=== PATIENT | female | born 1985 | race Caucasian/White ===

== ENCOUNTER → 2018-04-10 07:59 | Outpatient (CLI) | payer MEDICAID, SELFPAY ==
--- NOTE | 2018-04-10 08:30 | NS.NUTBLAN_ITS ---
Assessment: Tiffanie presents for nutritional counseling for weight management in preparation for bariatric surgery at [facility]. She reports that she is frustrated by her difficulty with weight loss as she eats moderately and she is moderately physically active with her work as well as going for 2 mile walks, 3 days per week. Her dietary recall shows that she has an Upper Sor[place] muffin with peanut butter and an apple for breakfast, she has lunch at work which may be a sandwich or piece of pizza, and for dinner she has chicken and vegetables. She reports that she rarely has a starch or other carbohydrate food at dinner. She does not eat after dinner and she does not eat in between meals. She is 66 and [address] scale. Nutrition Diagnosis: Class 3 obesity as evidenced by BMI of 48.4 kg/m2. Intervention: Encouraged Tiffanie to keep up with what she has been doing with her eating as she has maintained her weight for several years now. Encouraged her to be as physically active as possible. Monitoring and Evaluation: 1. Will monitor PO intake and weight monthly. 2. Will evaluate nutrition care plan monthly and adjust as needed. Thank you for the referral.
== END ==
PROVIDERS: PCP Internal Medicine; Visit Provider Dietitian, Registered
DX: E66.8 Other obesity (principal); Z68.42 Body mass index [BMI] 45.0-49.9, adult; Z71.3 Dietary counseling and surveillance
CPT/HCPCS: 97802

== ENCOUNTER 2018-05-08 10:20 | Outpatient (CLI) | payer MEDICAID, SELFPAY ==
--- NOTE | 2018-05-08 08:00 | NS.NUTBLAN_ITS ---
Tiffanie returns for nutritional counseling for weight management nutrition therapy in preparation for bariatric surgery at [facility]. She continues to eat just as she has been and she continues to be physically active with walking 2 miles, 3 days per week. She eats quite moderately and her weight stays fairly stable. She has an Romansh muffin with peanut butter and an apple for breakfast. She has lunch at work which may be a sandwich or a piece of pizza. Dinner is chicken and vegetables without any starch. She does not eat in between meals. Tiffanie demonstrates a high motivation to complete the steps needed for the bariatric program. She also shows a high motivation to continue a lifestyle of weight management. Tiffanie is 66 and 300.4 lbs. Her BMI is 48.4 kg/m2. Will continue to monitor PO intake and weight monthly. Will evaluate nutrition care plan monthly and adjust as needed.
== END 2018-05-08 10:40 ==
PROVIDERS: PCP Internal Medicine; Visit Provider Dietitian, Registered
DX: E66.8 Other obesity (principal); Z68.42 Body mass index [BMI] 45.0-49.9, adult; Z71.3 Dietary counseling and surveillance
CPT/HCPCS: 97802

== ENCOUNTER 2018-06-05 16:07 | Outpatient (CLI) | payer MEDICAID, SELFPAY ==
--- NOTE | 2018-06-05 08:00 | NS.NUTBLAN_ITS ---
Tiffanie returns for nutritional counseling for weight management nutrition therapy in preparation for bariatric surgery at [facility]. She continues to eat quite moderately but had reduced her carbohydrate intake even further than she had been typically eating. She also notes that she has worked hard at managing her stress and noting that stress is a life long issue that requires management versus letting it get in the way of her health. She is walking almost daily for 30 minutes. She drinks only water or diet drinks. Encouraged Tiffanie to keep up with what she has been doing. She is 66 and 289.5 lbs. Her BMI is 46.6 kg/m2 Tiffanie will return next month for continued weight management nutrition therapy. Will continue to monitor her PO intake and her weight monthly. Will evaluate her nutrition care plan and adjust as needed.
== END 2018-06-05 16:27 ==
PROVIDERS: PCP Internal Medicine; Visit Provider Dietitian, Registered
DX: E66.8 Other obesity (principal); Z68.42 Body mass index [BMI] 45.0-49.9, adult; Z71.3 Dietary counseling and surveillance
CPT/HCPCS: 97803

== ENCOUNTER 2018-07-07 14:00 | Outpatient (CLI) | payer MEDICAID, SELFPAY ==
--- NOTE | 2018-07-07 14:00 | NS.NUTBLAN_ITS ---
July 07, 2018 1400 h Tiffanie returns for follow up weight management nutrition therapy in preparation for bariatric surgery at [facility]. She continues to demonstrate a high motivation for lifestyle changes for weight reduction. She has most everything done that she has to do in order to have the surgery done. She continues to eat status quo and she continues to be as physically active as possible. Tiffanie notes that she has completely 100% cut out soda. Her work is such that this time of year she has been working 60 plus hours per week, however she reports that she has been keeping up with eating her three moderate meals and walking 3-4 days per week for 30 minutes daily. She is 66 and her weight today is 295 lbs. Her BMI is 47.7 kg/m2. Tiffanie will follow up per [facility].
== END 2018-07-07 14:20 ==
PROVIDERS: PCP Family Medicine; Visit Provider Dietitian, Registered
DX: E66.8 Other obesity (principal); Z68.41 Body mass index [BMI] 40.0-44.9, adult; Z71.3 Dietary counseling and surveillance
CPT/HCPCS: 97803

== ENCOUNTER 2018-11-09 08:34 | Emergency (ER) | payer MEDICAID, SELFPAY ==
[2018-11-09 08:37] VITALS: BP 131/103; PULSE 84; RESP 12; TEMP 36.5; O2SAT 98
--- NOTE | 2018-11-09 08:46 | ED.GENADUL_ITS ---
Discharge Plan Disposition Patient Disposition: HOME Condition: Stable Discharge Details Chief Complaint: Orthopedic Clinical Impression: Contusion of right hand, Contusion of right wrist Primary Care Provider: Kezia Aguirre ED Provider: Jamee Sapp Home Meds and New Rx's Prescriptions: Continued acetaminophen 500 MG tablet 1,000 mg PO PRN PRNRF: 0 Discharge Instructions Instructions: Contusion in Adults (ED) Additional Instructions: Rest, ice, elevate right hand is much as possible. Alternate Tylenol and Motrin as needed and directed for pain. Follow-up with your primary care doctor in 1 week for reevaluation as needed and for referral to orthopedics if symptoms do not improve or worsen. Return to the emergency department with any worsening or new concerning symptoms. Discharge Data Discharge Date/Time-TO BE ENTERED AT DEPARTURE: 11/09/18 10:30 Discharge Physician: Jamee Sapp Medical Decision Making 33-year-old female who presents with right hand and wrist injury after fall out of bed directly onto hand last night. No meds taken today. She has tenderness to palpation along right fifth metacarpal and right third/fourth/fifth MCP joints. No deformity. Neurovascular intact. No right snuffbox tenderness. Will give a dose of ibuprofen and sent for right wrist and hand x-rays. 1000 --x-rays negative for fracture. Appears consistent with contusion. Will place a right wrist splint. Patient instructed to alternate Tylenol Motrin, rest, ice, elevate. Instructed to follow-up with primary care doctor for reevaluation and for referral to orthopedics if symptoms not improve or worsen. She is instructed to return to the ER with any concerns. Medical Records Medical records reviewed: Yes I reviewed the patient's medical records. Imaging Data Radiologic Study: Radiologist's impression: XR Right Hand Complete, 3 or more Views EXAM DATE/TIME: 11/09/2018 8:46 AM FINDINGS: Bones/joints: Normal.There is no evidence of acute fracture. There is no evidence of malalignment or dislocation. Soft tissues: Normal. IMPRESSION: No acute findings. XR Right Wrist Complete, 3 or more Views EXAM DATE/TIME: 11/09/2018 8:57 AM FINDINGS: Bones/joints: There is no evidence of acute fracture. There is no evidence of malalignment or dislocation. Soft tissues: Normal. IMPRESSION: There is no evidence of acute fracture. HPI General Mode of arrival: ambulatory . Date/Time Provider Initiated Documentation: 11/09/18 08:45 . Limitations to Documentation: no limitations . Information obtained by: patient . HPI Narrative: Patient is a 33-year-old female presents with right hand and wrist pain after fall out of bed yesterday. Patient states she slipped and fell out of bed landing on her right hand which hyperextended at the wrist. She is complaining of pain along her right medial hand/fifth metacarpal and into her third fourth and fifth MCP joints. Pain with range of motion of her wrist and hand. She last took ibuprofen last night. She has applied ice. Related Data Home Medications Medication Instructions Recorded Confirmed acetaminophen 1,000 mg PO PRN PRN 05/30/17 11/09/18 Allergies Allergy/AdvReac Type Severity Reaction Status Date / Time dextromethorphan HBr Allergy Anaphylaxsi Unverified 11/09/18 08:40 [From NyQuil] s doxylamine succinate Allergy Anaphylaxsi Unverified 11/09/18 08:40 [From NyQuil] s pseudoephedrine HCl Allergy Anaphylaxsi Unverified 11/09/18 08:40 [From NyQuil] s spider venom AdvReac Intermediate hives/swell Unverified 11/09/18 08:40 ing General Stated Complaint: Orthopedic LOU: 4 Review of Systems Review of Systems All systems reviewed & are unremarkable except as noted in HPI and below PFSH Medical History Obesity PCOS (polycystic ovarian syndrome) Uterine fibroid Surgical History section Cholecystectomy Colonoscopy - MAC (01/21/17) Ligation of fallopian tube Family History Mother Diabetes Father Personal history of malignant neoplasm Grandfather Personal history of malignant neoplasm Social History Smoking/Tobacco Use Status: Former Tobacco Use Drug use: Never Do you feel safe at home: Yes Do you feel safe in your relationship?: Yes Exam Const General: cooperative, healthy appearing and no acute distress HENMT Head: normal to inspection Mouth: oral mucosae normal Eyes General: appearance normal, both eyes and all related structures Neck Neck: normal visual inspection Resp Effort & Inspection: normal respiratory effort and able to speak in complete sentences Cardio Rate: regular rate Skin General skin exam: no rashes or lesions noted Neuro General: alert, awake and oriented x3 Motor: muscle tone normal throughout Extrem Other: Tenderness to palpation along right fifth metacarpal, and right third, fourth and fifth MCP joints. Pain with range of motion of R hand and wrist. No tenderness to palpation of right snuffbox. No deformity, significant edema, erythema, ecchymosis, laceration or abrasion. Right DP/PT pulses intact. Cap refill less than 2 seconds. Fingers normal to inspection without deformity. Psych Appearance: grossly normal Affect: normal affect Course Vital Signs Temperature 97.7 F 11/09/18 08:37 Pulse 84 11/09/18 08:37 Respiratory Rate 12 11/09/18 08:37 Blood Pressure 131/103 H 11/09/18 08:37 Pulse Oximetry 98 11/09/18 08:37 Temperature 97.7 F 11/09/18 08:37 Temperature Source Temporal Artery Scan 11/09/18 08:37 Pulse 84 11/09/18 08:37 Respiratory Rate 12 11/09/18 08:37 Respiratory Effort Non-Labored 11/09/18 08:38 Blood Pressure 131/103 H 11/09/18 08:37 Pulse Oximetry 98 11/09/18 08:37 Oxygen Delivery Method Room Air 11/09/18 08:37 Oxygen Flow Rate 0 11/09/18 08:37 Pain Level 10 11/09/18 08:39
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
--- NOTE | 2018-11-09 09:39 | DI.VRAD_ITS ---
EXAM: XR Right Wrist Complete, 3 or more Views EXAM DATE/TIME: 11/09/2018 8:57 AM CLINICAL HISTORY: 33 years old, female; Pain; Hand; Right TECHNIQUE: Imaging protocol: XR Right wrist 3 or more views. COMPARISON: CR RIGHT HAND COMPLETE 01/29/2018 11:08 PM FINDINGS: Bones/joints: There is no evidence of acute fracture. There is no evidence of malalignment or dislocation. Soft tissues: Normal. IMPRESSION: There is no evidence of acute fracture. Dictated and Authenticated by: Francesca Bolden MD. Ordering:ABY Mancuso MD
[2018-11-09] MEDS: Ibuprofen 600 MG TAB PO (09:41)
== END 2018-11-09 10:30 | disposition home or self-care (01) ==
PROVIDERS: Emergency Provider Physician Assistant; PCP Family Medicine
DX: S60.211A Contusion of right wrist, initial encounter (principal); S60.221A Contusion of right hand, initial encounter; W06.XXXA Fall from bed, initial encounter
CPT/HCPCS: 29125; 99284; 73110; 73130; 99282; L3908

== ENCOUNTER 2018-11-21 23:37 | Emergency (ER) | payer MEDICAID, SELFPAY ==
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
[2018-11-21 23:39] VITALS: BP 123/64; PULSE 108; RESP 22; TEMP 37.3; O2SAT 97
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
[2018-11-22] MEDS: Acetaminophen 500 MG TAB 1000 MG PO (01:05)
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
[2018-11-22 01:35] LABS: Bilirubin Negative (Negative); Blood Negative (Negative); Clarity Clear; Glucose Negative (Negative); Ketones 15 mg/dL (Negative); Leukocyte Esterase Trace (Negative); Nitrite Negative (Negative); Urobilinogen 0.2 EU/dL (Up TO 0.2)
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
[2018-11-22 01:41] LABS: Bacteria Rare HPF (Negative); C & S Indicated? No/Sq. Contamination; Casts 0-2 Hyaline LPF (Negative); Crystals Negative HPF (Negative); Epithelial Cells Moderate HPF (Negative); Mucus Negative (Negative); RBC 0-2 (0-2)
[2018-11-22 01:55] VITALS: BP 120/78; PULSE 86; RESP 20; O2SAT 97
== END 2018-11-22 02:02 | disposition home or self-care (01) ==
PROVIDERS: Emergency Provider Emergency Medicine; PCP Family Medicine
DX: S00.03XA Contusion of scalp, initial encounter (principal); S00.83XA Contusion of other part of head, initial encounter; S10.93XA Contusion of unspecified part of neck, initial encounter; M54.9 Dorsalgia, unspecified; Y04.8XXA Assault by other bodily force, initial encounter
CPT/HCPCS: 99284; 70450; 70486; 71046; 72080; 73000; 81003; 81015

== ENCOUNTER 2019-01-01 10:29 | Outpatient (REF) | payer MEDICAID, SELFPAY ==
[2019-01-01 13:12] LABS: HCT 42.3 % (36.0-46.0); HGB 13.7 g/dL (12.0-15.5); Mean Corp. HGB Concentration 32.4 g/dL (32.0-36.0); Mean Corpuscular Hemoglobin 27.7 pg (27.0-33.0); Mean Corpuscular Volume 85.6 fL (80-95); Mean Platelet Volume 11.6 fL (8.0-11.0); Platelet Count 244 x1000/uL (130-400); RBC 4.94 m/cumm (4.00-5.20); RBC Distribution Width 14.2 % (11.7-14.6); White Blood Cell Count 7.59 k/cumm (4.4-10.8)
[2019-01-01 13:38] LABS: ALT 22 U/L (12-78); AST 12 U/L (15-37); Albumin 3.8 g/dL (3.4-5.0); Alkaline Phosphatase 73 U/L (46-116); Anion Gap 9.2 mmol/L (3-11); BUN 10 mg/dL (7-18); Bilirubin, Total 0.2 mg/dL (0.2-1.0); C-Reactive Protein 0.27 mg/dL (0.0-0.3); CO2 25.8 mmol/L (21.0-32.0); Calcium 9.4 mg/dL (8.5-10.1); Chloride 105 mmol/L (98-107); Glucose 63 mg/dL (70-100); Potassium 4.2 mmol/L (3.5-5.1); Sodium 140 mmol/L (136-145); Total Protein 6.9 g/dL (6.4-8.2)
== END 2019-01-01 10:49 ==
LOC: NCHCN 10:29
PROVIDERS: PCP Family Medicine; Visit Provider Family Medicine
DX: R55 Syncope and collapse (principal)
CPT/HCPCS: 80053; 85027; 86140

== ENCOUNTER 2019-03-12 05:58 | Emergency (ER) | payer MEDICAID, SELFPAY ==
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
[2019-03-12 06:02] VITALS: BP 136/83; PULSE 81; RESP 18; TEMP 36.7; O2SAT 97
[2019-03-12 06:14] LABS: Bilirubin Negative (Negative); Blood Negative (Negative); Clarity Clear (Clear); Glucose Negative (Negative); Ketones Negative (Negative); Leukocyte Esterase Trace (Negative); Nitrite Negative (Negative)
[2019-03-12 06:22] LABS: Bacteria Few HPF (Negative); C & S Indicated? No/Sq. Contamination; Casts Negative LPF (Negative); Crystals Negative HPF (Negative); Epithelial Cells Many HPF (Negative); Mucus Negative (Negative); RBC 0-2 (0-2); WBC 0-2 HPF (0-5)
[2019-03-12 06:26] LABS: Abs Immature Grans 0.01 k/cumm (0.0-0.09); Absolute Basophil Count 0.06 k/cumm (0.0-0.2); Absolute Eosinophil Count 0.13 k/cumm (0.0-0.7); Absolute Lymphocyte Count 2.47 k/cumm (1.2-3.4); Absolute Monocyte Count 0.59 k/cumm (0.11-0.7); Absolute Neutrophil Count 2.14 k/cumm (1.2-6.7); Basophils % 1.1; Eosinophils % 2.4; HCT 39.4 % (36.0-46.0); HGB 13.3 g/dL (12.0-15.5); Immature Grans % 0.2; Lymphocytes % 45.7; Mean Corp. HGB Concentration 33.8 g/dL (32.0-36.0); Mean Corpuscular Hemoglobin 28.4 pg (27.0-33.0); Mean Corpuscular Volume 84.2 fL (80-95); Mean Platelet Volume 9.9 fL (8.0-11.0); Monocytes % 10.9; Neutrophils % 39.7; Platelet Count 152 x1000/uL (130-400); RBC 4.68 m/cumm (4.00-5.20); RBC Distribution Width 14.1 % (11.7-14.6)
[2019-03-12] MEDS: Ondansetron 4 MG/2 ML VIAL IVP (06:26)
[2019-03-12] MEDS: MORPHine 10 MG/ML VIAL 4 MG IVP (06:26)
[2019-03-12] MEDS: Normal Saline 1,000 ML 1000 ML IV (06:26)
[2019-03-12 06:40] LABS: ALT 74 U/L (12-78); AST 53 U/L (15-37); Albumin 3.5 g/dL (3.4-5.0); Alkaline Phosphatase 109 U/L (46-116); Anion Gap 8.7 mmol/L (3-11); BUN 7 mg/dL (7-18); Bilirubin, Total 0.4 mg/dL (0.2-1.0); CO2 25.3 mmol/L (21.0-32.0); CREATININE 0.47 mg/dL (0.55-1.02); Calcium 9.1 mg/dL (8.5-10.1); Chloride 106 mmol/L (98-107); Glucose 98 mg/dL (70-100); Lipase 100 U/L (73-393); Potassium 4.1 mmol/L (3.5-5.1); Sodium 140 mmol/L (136-145)
[2019-03-12] MEDS: Omnipaque 350 MG/ML 100 ML BTL IJ (06:59)
[2019-03-12] MEDS: Normal Saline Flush 10 ML SYR IVP (07:00)
--- NOTE | 2019-03-12 07:05 | DI.CT_ITS ---
SYMPTOM/DIAGNOSIS: RLQ TENDERNESS, R/O APPE CT ABDOMEN AND PELVIS: The study was carried out according to the usual protocol. intravenous administration of 100 cc Omnipaque 350. A small region of fatty infiltration is noted involving the liver. The patient is status post cholecystectomy. The pancreas is normal. The spleen is enlarged measuring up to 15.4 cm in length. The adrenals and kidneys are normal. The patient is status post gastric bypass. There is no evidence of obstruction or localized bowel abnormality. The appendix was not visualized but there is nothing to suggest an acute appendix. There has been a right oophoropexy located within the right pericolic gutter. There is no evidence of free air or free fluid. There is no aortic aneurysm. There is no lymphadenopathy. The bladder is unremarkable. The patient is status post hysterectomy. The bony structures are unremarkable. Soft tissues are unremarkable. SUMMARY: No evidence of an acute abdomen. Splenomegaly is noted measuring up to as much as 15.4 cm in size.
--- NOTE | 2019-03-12 07:26 | DI.VRAD_ITS ---
EXAM: CT Abdomen and Pelvis With Contrast EXAM DATE/TIME: 03/12/2019 6:06 AM CLINICAL HISTORY: 33 years old, female; Abdominal pain; Localized; Right lower quadrant (rlq); Prior surgery; Surgery date: 1-6 months; Surgery type: Gastric bypass 09/2018; x2, gallbladder; Additional info: Nausea, sharp rlq pain x12+/- hours TECHNIQUE: Imaging protocol: Axial computed tomography images of the abdomen and pelvis with intravenous contrast. Coronal and sagittal reformatted images were created and reviewed. Radiation optimization: All CT scans at this facility use at least one of these dose optimization techniques: automated exposure control; mA and/or kV adjustment per patient size (includes targeted exams where dose is matched to clinical indication); or iterative reconstruction. Contrast material: [id number];Contrast volume: 100 ml;Contrast route: IV 18G RT AC; COMPARISON: US PELVIS TRANSVAG 12/27/2016 12:37 PM FINDINGS: Liver: Small focus of fat infiltration within the liver. Prominent David's lobe. Gallbladder and bile ducts: Cholecystectomy. Pancreas: Normal. No ductal dilation. Spleen: Spleen is enlarged, measuring 15.4 cm. Adrenals: Normal. No mass. Kidneys and ureters: Normal. No hydronephrosis. Stomach and bowel: Gastric bypass. No bowel obstruction. No bowel wall thickening. Appendix: Appendix is not visualized. However, there is no evidence of acute appendicitis. Intraperitoneal space: Right oophoropexy, located within the right paracolic gutter (4:61). No fluid collection. No free air. Vasculature: No abdominal aortic aneurysm. Lymph nodes: Normal. No enlarged lymph nodes. Bladder: Unremarkable as visualized. Reproductive: Hysterectomy. Bones/joints: No acute fracture. No dislocation. Soft tissues: Unremarkable. IMPRESSION: 1. No evidence of acute abdominopelvic pathology. 2. Spleen is enlarged, measuring 15.4 cm. Dictated and Authenticated by: Kendrick Gonzalez MD. Ordering:NOE Hopper MD
[2019-03-12] MEDS: Ketorolac 30 MG/ML VIAL IVP (07:46)
[2019-03-12] MEDS: Dicyclomine 20 MG TAB PO (07:47)
[2019-03-12 07:49] VITALS: BP 122/75; PULSE 56; RESP 15; TEMP 36.8; O2SAT 98
[2019-03-12 08:02] VITALS: BP 122/75; PULSE 56; RESP 15; TEMP 36.8; O2SAT 98
== END 2019-03-12 08:04 | disposition home or self-care (01) ==
PROVIDERS: Emergency Provider Student in an Organized Health Care Education/Training Program; PCP Family Medicine
DX: R10.31 Right lower quadrant pain (principal)
CPT/HCPCS: 36415; 80053; 83690; 96361; 96374; 96375; 99285; 74177; 81003; 81015; 85025; 99284; J1885; J2270; J2405; J3490

== ENCOUNTER 2019-04-15 18:55 | Emergency (ER) | payer MEDICAID, SELFPAY ==
[2019-04-15 18:58] VITALS: BP 117/79; PULSE 74; RESP 18; TEMP 36.6; O2SAT 97
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
[2019-04-15] MEDS: Penicillin V POTASSIUM 500 MG TAB PO (19:35)
[2019-04-15] MEDS: Penicillin V POTASSIUM 500 MG TAB 1500 MG PO (19:57)
== END 2019-04-15 20:14 | disposition home or self-care (01) ==
PROVIDERS: Emergency Provider Nurse Practitioner Family; PCP Family Medicine
DX: R68.84 Jaw pain (principal); R22.0 Localized swelling, mass and lump, head; K04.7 Periapical abscess without sinus
CPT/HCPCS: 64402; 99283

== ENCOUNTER 2019-09-08 04:54 | Emergency (ER) | payer MEDICAID, SELFPAY ==
[2019-09-08 04:59] VITALS: BP 129/79; PULSE 96; RESP 18; TEMP 37; O2SAT 97
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
== END 2019-09-08 05:30 | disposition home or self-care (01) ==
PROVIDERS: Emergency Provider Emergency Medicine; PCP Family Medicine
DX: R05 Cough (principal); R51 Headache; M79.10 Myalgia, unspecified site; J11.1 Influenza due to unidentified influenza virus with other respiratory manifestations
CPT/HCPCS: 99282

== ENCOUNTER 2019-09-24 13:14 | Emergency (ER) | payer MEDICAID, SELFPAY ==
[2019-09-24 13:24] VITALS: BP 137/85; PULSE 66; RESP 16; TEMP 36.2; O2SAT 99
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
== END 2019-09-24 13:45 | disposition home or self-care (01) ==
PROVIDERS: Emergency Provider Physician Assistant; PCP Family Medicine
DX: J20.8 Acute bronchitis due to other specified organisms (principal); Z87.891 Personal history of nicotine dependence
CPT/HCPCS: 99282

== ENCOUNTER 2019-12-22 05:39 | Emergency (ER) | payer MEDICAID, SELFPAY ==
[2019-12-22] VITALS (7 sets, daily range): BP systolic 131; BP diastolic 73; PULSE 61–73; RESP 13–21; TEMP 36.6; O2SAT 97–99
[2019-12-22] MEDS: Normal Saline 1,000 ML 1000 ML IV (05:55)
--- NOTE | 2019-12-22 05:56 | ED.GENADUL_ITS ---
Discharge Plan Disposition Patient Disposition: HOME Condition: Good Discharge Details Chief Complaint: Dizzy/Sync Clinical Impression: Syncope, Concussion, Dehydration Primary Care Provider: Kezia Aguirre ED Provider: Ward Jade Home Meds and New Rx's Prescriptions: No Action acetaminophen 500 MG tablet 1,000 mg PO PRN PRNRF: 0 ibuprofen 600 mg Tablet 600 mg PO PRN PRNRF: 0 venlafaxine 37.5 mg Tablet 37.5 mg PO DAILY RF: 0 diclofenac potassium 50 mg Tablet 50 mg PO TID RF: 0 buspirone 7.5 mg Tablet 7.5 mg PO DAILY RF: 0 fluticasone propionate [Flonase Allergy Relief] 50 mcg/actuation Sims,Suspension 1 spray INTRANASAL BID RF: 0 Discharge Instructions Instructions: Syncope (ED), Concussion (ED) Additional Instructions: At this time I feel that your syncope/loss of consciousness was from mild dehydration including it being early in the morning and urinating at that time. Please make sure to drink plenty of fluids, recommending 10 to 12 cups of water today. Get plenty of sleep and rest today. You do have a mild concussion from hitting her head. If you notice any worsening of your symptoms, or any new symptoms such as vomiting, diarrhea, fever, chills, shortness of breath, chest pain, numbness, weakness, or fainting , please return immediately to the emergency department for reevaluation. Please follow up with your primary care provider as soon as possible for reassessment and reevaluation. As always, it was a pleasure participating in your medical care today. Stand Alone Forms: Work Release Referrals: Kezia Aguirre [Primary Care Provider] - Medical Decision Making This is a pleasant 34-year-old female with a past medical history of a , tubal ligation, partial colectomy, partial hysterectomy, cholecystectomy, and polycystic ovarian syndrome who presents for evaluation of syncope. Patient states that at 1 AM which was roughly 5 hours ago she went to the bathroom and while urinating had 2 episodes of syncope. She went back to bed, however this morning when she got up for work she felt lightheaded, and when she stood up to get out of bed she passed out a third time. She did hit her right brow on her initial episode of syncope in the bathroom. Aside for the pain in her right brow as well as over the right temporal region she denies any headache or neck pain. No risk factors for PE, symptoms inconsistent with PE. No family history of atypical cardiac disease. Symptoms unlikely secondary to mild dehydration, micturition syncope. Patient does have notable bruise over the right brow and tenderness over the right brow and right temporal region. We will get CT scan to rule out fracture, bleed unlikely. We will rehydrate, evaluate for atypical cardiac or electrolyte abnormality, monitor closely and reassess. The patient has recently been started on anxiety medication mental health/depression medication, however I do not think that this is related to her current symptomatology. 6:52 AM Laboratory work-up is returned notably unremarkable, EKG and troponin are normal. CT scan negative for acute process. After patient received her liter of normal saline she is feeling much better. Repeat neurologic exam demonstrates no neurologic deficits or abnormalities. Patient feels well. Suspect that she had contusion, mild concussion after the fall. Symptoms of syncope are consistent with mild dehydration and micturition syncope. Symptoms are inconsistent with PE, stroke, or other acute abnormality. At this time feel the patient be discharged. Discussed red flags which to return. Recommend drinking plenty of fluids, rest, relaxation. I have extensively reviewed the treatment plan and discharge instructions with the patient. I have addressed all patient concerns at this time. The patient was made aware of what symptoms to monitor for that would warrant a return to the emergency department. Discussed the plan with the patient, they demonstrate verbal understanding and agreement with our assessment and plan at this time. EKG 5: 49 Rate 72, intervals normal, sinus rhythm, no evidence of Brugada syndrome, Cannon r-Ugxuiijuf-Kffga, or other abnormality. FINDINGS: Brain: Mild volume loss No hemorrhage. Unremarkable white matter. No mass effect. Ventricles: Normal. No ventriculomegaly. Bones/joints: Unremarkable. No acute fracture. Sinuses: A polyp/retention cyst is noted in the right sphenoid sinus.. No fluid levels. Mastoid air cells: Visualized mastoid air cells are well aerated. Soft tissues: Minimal right periorbital swelling IMPRESSION: No acute intracranial hemorrhage noted HPI General Date/Time Provider Initiated Documentation: 12/22/19 05:46 . HPI Narrative: This is a pleasant 34-year-old female with a past medical history of a , tubal ligation, partial colectomy, partial hysterectomy, cholecystectomy, and polycystic ovarian syndrome who presents for evaluation of syncope. Patient states that at 1 AM which was roughly 5 hours ago she went to the bathroom and while urinating had 2 episodes of syncope. She went back to bed, however this morning when she got up for work she felt lightheaded, and when she stood up to get out of bed she passed out a third time. She did hit her right brow on her initial episode of syncope in the bathroom. Aside for the pain in her right brow as well as over the right temporal region she denies any headache or neck pain. She denies any fever, chills, cough, chest pain, shortness of breath, numbness, tingling, weakness. She denies any pertinent family history of early cardiac , or cardiac abnormality. Denies PE risk factors such as recent long car rides, immobilization, recent surgery, prior history of DVT or PE, family history of PE or DVT, morbid obesity, exogenous estrogen and smoking, hemoptysis, history of cancer. She denies history of syncope like this in the past. She has no other complaints at this time. She is feels that she drank around a gallon of water yesterday. She denies any IV or illicit drug use. Related Data Home Medications Medication Instructions Recorded Confirmed acetaminophen 1,000 mg PO PRN PRN 05/30/17 12/22/19 ibuprofen 600 mg PO PRN PRN 04/15/19 12/22/19 buspirone 7.5 mg PO DAILY 12/22/19 12/22/19 diclofenac potassium 50 mg PO TID 12/22/19 12/22/19 fluticasone propionate [Flonase 1 spray INTRANASAL BID 12/22/19 12/22/19 Allergy Relief] venlafaxine 37.5 mg PO DAILY 12/22/19 12/22/19 Allergies Allergy/AdvReac Type Severity Reaction Status Date / Time dextromethorphan HBr Allergy Anaphylaxsi Unverified 12/22/19 05:45 [From NyQuil] s doxylamine succinate Allergy Anaphylaxsi Unverified 12/22/19 05:45 [From NyQuil] s pseudoephedrine HCl Allergy Anaphylaxsi Unverified 12/22/19 05:45 [From NyQuil] s spider venom AdvReac Intermediate hives/swell Unverified 12/22/19 05:45 ing General Stated Complaint: Dizzy/Sync LOU: 3 Review of Systems All systems reviewed & are unremarkable except as noted in HPI and below PFSH Social History Smoking/Tobacco Use Status: Former Tobacco Use Alcohol Intake: current Alcohol Intake frequency: a few times a month Alcohol type: hard liquor Drug use: Never Substance use type: does not use Do you feel safe at home: Yes Do you feel safe in your relationship?: Yes Exam Narrative Exam Narrative: 1.Const: Well-nourished, Well-developed, appearing stated age 2.Eyes: PERRL, no conjunctival injection, and symmetrical lids. 3.ENT: Unremarkable external nose and ears. Notable bruising around the patient's right brow, mild tenderness on palpation of the right temporal region. Moist MM. Neck: Symmetric, trachea midline, No thyromegaly. There is no evidence of raccoon eyes, carcamo sign, CSF rhinorrhea, mastoid tenderness, cranial crepitus, hemotympanum, exophthalmos, or hyphema. Patient demonstrates intact dentition with no signs of tooth avulsion or fracture, no signs of jaw deformity, no evidence of a LeFort's fracture, with an intact palate, nose and orbital region. There is no evidence of a nasal septal hematoma. No proptosis. Jaw closes symmetrically. Airway is clear. 4.CVS: +S1/S2, No murmurs or gallops. Peripheral pulses 2+ and equal in all extremities. Brisk capillary refill in all extremities. 5.RESP: Unlabored respiratory effort. Clear to auscultation bilaterally. No wheezes rales or rhonchi 6.GI: Soft, Nontender/Nondistended, No hepatosplenomegaly. No guarding or rebound. 7.MSK: Normocephalic/Atraumatic, Extremities w/o deformity or ttp No cyanosis or clubbing, Normal movement of all extremities 8.Skin: Warm, Dry. No rashes or lesions. Mild bruising around the right orbital region. 9.Neuro: loading inspector II-XII grossly intact. Sensation grossly intact, no focal neurologic deficits. All 6 cardinal planes of vision are fully intact. No evidence of rotatory or vertical nystagmus. The patient demonstrated a normal zatmxw-ggva-ljlphi, good dexterity. There was no evidence of dysdiadochokinesia. Patient was able to ambulate without difficulty. There was no wide-based gait. Romberg testing was normal. Gorz-gd-plpx testing was normal. Sensation was i ntact bilaterally as well as muscle strength bilaterally for all extremities. Patient was able to verbalize butter cup with no slurring, or miss pronunciation. 10.Psych: (AAO) x3. Appropriate mood and affect Course Vital Signs Vital signs: Vital Signs Temperature 36.6 C 12/22/19 05:42 Pulse 73 12/22/19 05:42 Respiratory Rate 16 12/22/19 05:42 Blood Pressure 131/73 12/22/19 05:42 Pulse Oximetry 97 12/22/19 05:42 Temperature 36.6 C 12/22/19 05:42 Temperature Source Skin 12/22/19 05:42 Pulse 73 12/22/19 05:42 Respiratory Rate 16 12/22/19 05:42 Blood Pressure 131/73 12/22/19 05:42 Blood Pressure Position Sitting 12/22/19 05:42 Pulse Oximetry 97 12/22/19 05:42 Oxygen Delivery Method Room Air 12/22/19 05:42 Oxygen Flow Rate 0 12/22/19 05:42 Pain Level 5 12/22/19 05:42
[2019-12-22 06:02] LABS: Abs Immature Grans 0.01 k/cumm (0.0-0.09); Absolute Basophil Count 0.01 k/cumm (0.0-0.2); Absolute Eosinophil Count 0.09 k/cumm (0.0-0.7); Absolute Lymphocyte Count 2.48 k/cumm (1.2-3.4); Absolute Neutrophil Count 4.54 k/cumm (1.2-6.7); Basophils % 0.1; Eosinophils % 1.1; HCT 38.3 % (36.0-46.0); HGB 13.1 g/dL (12.0-15.5); Immature Grans % 0.1 %; Lymphocytes % 31.7; Mean Corp. HGB Concentration 34.2 g/dL (32.0-36.0); Mean Corpuscular Hemoglobin 29.8 pg (27.0-33.0); Mean Corpuscular Volume 87.2 fL (80-95); Mean Platelet Volume 10.1 fL (8.0-11.0); Monocytes % 8.9; Neutrophils % 58.1; Platelet Count 220 x1000/uL (130-400); RBC 4.39 m/cumm (4.00-5.20); RBC Distribution Width 13.2 % (11.7-14.6); White Blood Cell Count 7.83 k/cumm (4.4-10.8)
[2019-12-22] MEDS: Acetaminophen 500 MG TAB 1000 MG PO (06:04)
[2019-12-22 06:17] LABS: ALT 20 U/L (14-59); AST 11 U/L (15-37); Albumin 3.7 g/dL (3.4-5.0); Alkaline Phosphatase 74 U/L (46-116); Anion Gap 5.6 mmol/L (3-11); BUN 10 mg/dL (7-18); Bilirubin, Total 0.4 mg/dL (0.2-1.0); CO2 28.4 mmol/L (21.0-32.0); CREATININE 0.67 mg/dL (0.55-1.02); Chloride 104 mmol/L (98-107); Glucose 102 mg/dL (74-106); Potassium 4.2 mmol/L (3.5-5.1); Sodium 138 mmol/L (136-145); Total Protein 7.2 g/dL (6.4-8.2)
[2019-12-22 06:22] LABS: Troponin I < 0.05 ng/Ml (<0.06)
--- NOTE | 2019-12-22 06:35 | DI.CT_ITS ---
EXAM: CT HEAD WO CLINICAL HISTORY: fell, syncope x3, hit right brow, r/o fx. TECHNIQUE: Imaging Protocol: Axial computed tomography images with coronal and sagittal reformatted images were created and reviewed COMPARISON: CT CT HEAD FACIAL WO from 11/21/2018 FINDINGS: The ventricular system is normal in appearance. No evidence of acute intracranial hemorrhage, mass effect, or midline shift. The orbital structures are unremarkable. The temporal bone structures appear intact. Calvarium: Normal. Visualized Paranasal sinuses/Mastoids: Mild mucoperiosteal thickening thickening versus retention cys t sphenoid IMPRESSION: Normal cranial CT. RADIATION DOSE DELIVERED: Total DLP DATA REPOSITORY: All CT scans at this facility are submitted to the National Radiology Data Registry (NRDR) Dose Index Registry (DIR) with the [employer] ([employer]). RADIATION OPTIMIZATION: All CT scans at this facility use at least one of these dose optimization te chniques: automated exposure control; mA and/or kV adjustment per patient size (includes targeted exa ms where dose is matched to clinical indication); or iterative reconstruction.
--- NOTE | 2019-12-22 06:42 | DI.VRAD_ITS ---
PROCEDURE INFORMATION: Exam: CT Head Without Contrast Exam date and time: 12/22/2019 6:19 AM Age: 34 years old Clinical indication: Injury or trauma; Fall; Initial encounter; Blunt trauma (contusions or hematomas); With loss of consciousness; Not specified; Injury date: 12/22/19; Injury details: Fell, syncope x3, hit right brow, R/O FX TECHNIQUE: Imaging protocol: Computed tomography of the head without contrast. Radiation optimization: All CT scans at this facility use at least one of these dose optimization techniques: automated exposure control; mA and/or kV adjustment per patient size (includes targeted exams where dose is matched to clinical indication); or iterative reconstruction. COMPARISON: CT HEAD WITHOUT CONTRAST 02/01/2018 1:16 PM FINDINGS: Brain: Mild volume loss No hemorrhage. Unremarkable white matter. No mass effect. Ventricles: Normal. No ventriculomegaly. Bones/joints: Unremarkable. No acute fracture. Sinuses: A polyp/retention cyst is noted in the right sphenoid sinus.. No fluid levels. Mastoid air cells: Visualized mastoid air cells are well aerated. Soft tissues: Minimal right periorbital swelling IMPRESSION: No acute intracranial hemorrhage noted Dictated and Authenticated by: Mikel James MD. Ordering:NOE Hopper MD
== END 2019-12-22 07:00 | disposition home or self-care (01) ==
PROVIDERS: Emergency Provider Student in an Organized Health Care Education/Training Program; PCP Family Medicine
DX: R55 Syncope and collapse (principal); S06.0X9A Concussion with loss of consciousness of unspecified duration, initial encounter; S00.83XA Contusion of other part of head, initial encounter; W18.12XA Fall from or off toilet with subsequent striking against object, initial encounter; E86.0 Dehydration
CPT/HCPCS: 36415; 80053; 93005; 96360; 99285; 70450; 81003; 84484; 85025; 93010; 99284

== ENCOUNTER 2020-03-01 14:33 | Outpatient (REF) | payer MEDICAID, SELFPAY ==
[2020-03-06 15:00] LABS: SARS-CoV-2 RNA Undetected (Undetected); SARS-CoV-2 Specimen Source Nasopharynx
== END 2020-03-01 14:53 ==
LOC: NCHCN 14:33
PROVIDERS: PCP Family Medicine; Visit Provider Nurse Practitioner Family
DX: R53.83 Other fatigue (principal); Z11.59 Encounter for screening for other viral diseases
CPT/HCPCS: U0003

== ENCOUNTER 2020-04-06 15:47 | Emergency (ER) | payer MEDICAID, SELFPAY ==
[2020-04-06] VITALS (38 sets, daily range): BP systolic 100–120; BP diastolic 47–72; PULSE 59–83; RESP 12–25; TEMP 37–37.9; O2SAT 96–100
--- NOTE | 2020-04-06 15:30 | RT.EKG_ITS ---
APPROVED REPORT Exam: Resting ECG Patient Location: E HR:66 bpm ECG Measurements Heart Rate 66 AXIS WY 177 P 3 QRSd 96 QRS 58 QT 405 T 42 QTc 425 Conclusion Sinus rhythm...normal P axis, V-rate 60- 99
[2020-04-06] MEDS: Normal Saline 1,000 ML 1000 ML IV (16:29)
[2020-04-06 16:30] LABS: Abs Immature Grans 0.02 10^3/uL (0.0-0.06); Absolute Basophil Count 0.03 10^3/uL (0.0-0.2); Absolute Eosinophil Count 0.13 10^3/uL (0.0-0.7); Absolute Lymphocyte Count 2.86 10^3/uL (1.2-3.4); Absolute Monocyte Count 0.45 10^3/uL (0.1-0.8); Absolute Neutrophil Count 3.41 10^3/uL (1.2-6.7); Basophils % 0.4; Eosinophils % 1.9; HCT 37.1 % (36.0-46.0); Immature Grans % 0.3; Lymphocytes % 41.4; MCH 28.8 pg (27.0-33.0); MCHC 32.3 % (32.0-36.0); MPV 10.5 fL (8.0-11.0); Monocytes % 6.5; Neutrophils % 49.5; Nucleated RBC 0 %; Platelet Count 209 10^3/uL (130-400); RBC 4.17 10^6/uL (3.93-5.22); RDW-SD 42.4 fL
[2020-04-06] MEDS: LORazepam 2 MG/ML VIAL 1 MG IVP (16:33)
--- NOTE | 2020-04-06 17:05 | DI.RAD_ITS ---
EXAM: XR CHEST 2V PA LATERAL CLINICAL HISTORY: chest pain TECHNIQUE: 2D digital imaging was performed. COMPARISON: CR XR CHEST 2V PA LATERAL from 11/21/2018 FINDINGS: The heart is not enlarged. The lungs are clear and well expanded. No pleural effusion seen. Mediastin al contours appear intact. IMPRESSION: Normal chest RADIATION DOSE DELIVERED: Total DLP
[2020-04-06 17:10] LABS: ALT 21 U/L (14-59); AST 22 U/L (15-37); Albumin 3.6 g/dL (3.4-5.0); Alkaline Phosphatase 61 U/L (46-116); Anion Gap 11.3 mmol/L (3-11); BUN 11 mg/dL (7-18); Bilirubin, Total 0.2 mg/dL (0.2-1.0); CO2 23.7 mmol/L (21.0-32.0); CREATININE 0.57 mg/dL (0.55-1.02); Calcium 8.7 mg/dL (8.5-10.1); Chloride 105 mmol/L (98-107); Glucose 93 mg/dL (74-106); Magnesium 2.1 mg/dL (1.8-2.4); Sodium 140 mmol/L (136-145); TSH 0.85 uIU/mL (0.36-3.74); Total Protein 6.8 g/dL (6.4-8.2)
[2020-04-06 17:11] LABS: Troponin I < 0.05 ng/mL (<0.06)
--- NOTE | 2020-04-06 17:12 | DI.VRAD_ITS ---
PROCEDURE INFORMATION: Exam: XR Chest, 2 Views Exam date and time: 04/06/2020 5:05 PM Age: 35 years old Clinical indication: Chest pain; Type not specified TECHNIQUE: Imaging protocol: XR of the chest Views: 2 views. COMPARISON: CR XR CHEST 2V PA LATERAL 11/22/2018 12:49 AM FINDINGS: Lungs: The lungs are normally expanded and clear. Pleural space: Normal. Heart/Mediastinum: Normal heart and cardiomediastinal silhouette. Vasculature: Normal pulmonary vessel caliber. Normal aorta. Bones/joints: The bones are intact. IMPRESSION: Normal. Dictated and Authenticated by: Colton Penaloza MD. Ordering:DOMINGA Mojica MD
[2020-04-06 17:44] LABS: Bilirubin Negative (Negative); Blood Negative (Negative); Clarity Sl Cloudy (Clear); Glucose Negative (Negative); Ketones Negative (Negative); Leukocyte Esterase Trace (Negative); Nitrite Negative (Negative); Specific Gravity 1.015 (1.005-1.025); Urobilinogen 0.2 EU/dL (Up TO 0.2); pH 6.5 (5-8)
--- NOTE | 2020-04-06 17:49 | W.ED.GENAD ---
Discharge Plan Disposition Patient Disposition: HOME Condition: Stable Discharge Details Chief Complaint: Dizzy/Sync Clinical Impression: Pancreatitis Primary Care Provider: Kezia Aguirre ED Provider: Yunior Nicole Home Meds and New Rx's Prescriptions: Continued venlafaxine 37.5 mg Tablet 37.5 mg PO DAILY RF: 0 Discharge Instructions Instructions: Pancreatitis (ED) Additional Instructions: Work-up in the ER reveals mild pancreatitis, otherwise unremarkable. As we discussed, we believe that discharge home is perfectly reasonable. We discussed [id number] medication such as Tylenol and/or Motrin as directed for somatic control. Clear liquid diet, advance as tolerated. Please watch for new or worsening symptoms and return to the ER for any concerns. I do recommend reaching out your primary care provider tomorrow for prompt outpatient reevaluation. Discussed few reevaluation and recheck of your lipase. Discharge Data Discharge Date/Time-TO BE ENTERED AT DEPARTURE: 04/06/20 19:20 Medical Decision Making 35-year-old female with history of PCOS, denies smoking, drinking alcohol, drug use, presents to the ER for what she describes as chest pain. Upon further investigation she is actually pointing just below her chest more so to her epigastric region on the left side. Evaluation reveals that she does have discomfort to palpation of the epigastric and left upper quadrant region. The pain is associate with nausea and was so severe made her dizzy. Clinically she appears well, nontoxic and in no acute distress. Heart rate in the 60s, she is afebrile, and O2 sat is 98% on room air. Per the PERC criteria I will not obtain a d-dimer. Although she complains of chest pain I believe this is much more likely GI related. I will obtain a cardiac work-up given her complaint. She is already received aspirin. I will give her a GI cocktail, IV fluids, will also provide 1 mg IV Ativan for her dizziness. I would give Antivert but it appears as though she has anaphylactic reaction to antihistamines. Patient was reevaluated multiple times, each time subsequently she reported less symptoms. Eventually she denied any feeling of dizziness or nausea. She reported that she still had some lower chest pressure but that to resolve completely. Initial work-up reveals a white count of 6.90 hemoglobin 12 hematocrit 37.1 platelet count 209. Electrolytes unremarkable. Creatinine 0.57 with a GFR greater than 60. Glucose 93. Mag 2.1. Initial troponin less than 0.05. Chest x-ray unremarkable. TSH 0.85. Urinalysis trace leukoesterase 5-10 high-powered field white cells with many epis, likely contamination. Lipase of 526. Mild pancreatitis. Certainly would explain her presentation. I discussed findings with patient. She is never been diagnosed with pancreatitis, does not drink alcohol. She was agreeable to awaiting a repeat EKG and troponin at 3 hours. At this time she is currently asymptomatic. We discussed CT imaging, unfortunately currently we are in a code black, CT imaging not available. I did explain to the patient that she could be held in the ER for additional 2 or [address] imaging at that time however she declines. Given her presentation I believe this to be perfectly reasonable. She is comfortable following with her primary care provider or returning here to the ER for new or worsening symptoms. Repeat EKG performed at 1931. Sinus rhythm, ventricular of 64. No STEMI. Reviewed and interpreted with Dr. Levine, please see his official report. Repeat troponin is less than 0.05 Patient remains asymptomatic. We discussed her repeat EKG and troponin. We again discussed CT imaging, she does not want to wait in the ER any longer. Given her lipase is only 526, otherwise labs appear unremarkable, and she is currently asymptomatic I believe discharge is completely reasonable with close outpatient follow-up. Medical Records Medical records reviewed: Yes I reviewed the patient's medical records. Imaging Data Radiologic Study: Attestation: I personally reviewed and interpreted this imaging study as follows: Imaging: X-Ray Radiologist's impression: Chest x-ray negative, read by radiology Lab Data Lab results reviewed: Yes I reviewed the patient's lab results. Lab results narrative: Laboratory Tests Range/Units 04/06/20 04/06/20 04/06/20 15:56 15:56 16:00 WBC (4.4-10.8) 10^3/uL 6.90 RBC (3.93-5.22) 10^6/uL 4.17 Hgb (11.2-15.7) g/dL 12.0 Hct (36.0-46.0) % 37.1 MCV (80-95) fL 89.0 MCH (27.0-33.0) pg 28.8 MCHC (32.0-36.0) % 32.3 RDW (11.7-14.6) % 13.0 Plt Count (130-400) 10^3/uL 209 MPV (8.0-11.0) fL 10.5 Immature Gran % 0.3 Neutrophils % 49.5 Lymphocytes % 41.4 Monocytes % 6.5 Eosinophils % 1.9 Basophils % 0.4 Nucleated RBC % % 0 Absolute Neutrophils (1.2-6.7) 10^3/uL 3.41 Absolute Lymphocytes (1.2-3.4) 10^3/uL 2.86 Absolute Monocytes (0.1-0.8) 10^3/uL 0.45 Absolute Eosinophils (0.0-0.7) 10^3/uL 0.13 Absolute Basophils (0.0-0.2) 10^3/uL 0.03 Sodium (136-145) mmol/L 140 Potassium (3.5-5.1) mmol/L 4.0 Chloride (98-107) mmol/L 105 Carbon Dioxide (21.0-32.0) mmol/L 23.7 Anion Gap (3-11) mmol/L 11.3 H BUN (7-18) mg/dL 11 Creatinine (0.55-1.02) mg/dL 0.57 Estimated GFR/1.73 m2 (mL/min/1.73m2) >= 60.00 Glucose (74-106) mg/dL 93 Calcium (8.5-10.1) mg/dL 8.7 Magnesium (1.8-2.4) mg/dL 2.1 Total Bilirubin (0.2-1.0) mg/dL 0.2 AST (15-37) U/L 22 ALT (14-59) U/L 21 Alkaline Phosphatase (46-116) U/L 61 Troponin I (<0.06) ng/mL < 0.05 Total Protein (6.4-8.2) g/dL 6.8 Albumin (3.4-5.0) g/dL 3.6 Lipase (73-393) U/L 526 H TSH (0.36-3.74) uIU/mL 0.85 Urine Color (Yellow) Urine Clarity (Clear) Urine pH (5-8) Ur Specific Eunice (1.005-1.025) Urine Protein (Negative) mg/dL Urine Ketones (Negative) mg/dL Urine Blood (Negative) Urine Nitrite (Negative) Urine Bilirubin (Negative) Urine Urobilinogen (Up TO 0.2) EU/dL Ur Leukocyte Esterase (Negative) Urine RBC (0-2) HPF Urine WBC (0-5) HPF Ur Epithelial Cells (Negative) HPF Urine Crystals (Negative) HPF Urine Bacteria (Negative) HPF Urine Casts (Negative) LPF Urine Mucus (Negative) Ur Culture Indicated? Urine Glucose (Negative) mg/dL Urine Opiates Screen (Negative) Urine Methadone Screen (Negative) Ur Barbiturates Screen (Negative) Ur Tricyclics Screen (Negative) Ur Amphetamines Screen (Negative) U Benzodiazepines Scrn (Negative) Urine Cocaine Screen (Negative) Ur THC Screen (Negative) Range/Units 04/06/20 04/06/20 04/06/20 17:28 17:28 19:05 WBC (4.4-10.8) 10^3/uL RBC (3.93-5.22) 10^6/uL Hgb (11.2-15.7) g/dL Hct (36.0-46.0) % MCV (80-95) fL MCH (27.0-33.0) pg MCHC (32.0-36.0) % RDW (11.7-14.6) % Plt Count (130-400) 10^3/uL MPV (8.0-11.0) fL Immature Gran % Neutrophils % Lymphocytes % Monocytes % Eosinophils % Basophils % Nucleated RBC % % Absolute Neutrophils (1.2-6.7) 10^3/uL Absolute Lymphocytes (1.2-3.4) 10^3/uL Absolute Monocytes (0.1-0.8) 10^3/uL Absolute Eosinophils (0.0-0.7) 10^3/uL Absolute Basophils (0.0-0.2) 10^3/uL Sodium (136-145) mmol/L Potassium (3.5-5.1) mmol/L Chloride (98-107) mmol/L Carbon Dioxide (21.0-32.0) mmol/L Anion Gap (3-11) mmol/L BUN (7-18) mg/dL Creatinine (0.55-1.02) mg/dL Estimated GFR/1.73 m2 (mL/min/1.73m2) Glucose (74-106) mg/dL Calcium (8.5-10.1) mg/dL Magnesium (1.8-2.4) mg/dL Total Bilirubin (0.2-1.0) mg/dL AST (15-37) U/L ALT (14-59) U/L Alkaline Phosphatase (46-116) U/L Troponin I (<0.06) ng/mL < 0.05 Total Protein (6.4-8.2) g/dL Albumin (3.4-5.0) g/dL Lipase (73-393) U/L TSH (0.36-3.74) uIU/mL Urine Color (Yellow) Yellow Urine Clarity (Clear) Sl cloudy Urine pH (5-8) 6.5 Ur Specific Eunice (1.005-1.025) 1.015 Urine Protein (Negative) mg/dL Negative Urine Ketones (Negative) mg/dL Negative Urine Blood (Negative) Negative Urine Nitrite (Negative) Negative Urine Bilirubin (Negative) Negative Urine Urobilinogen (Up TO 0.2) EU/dL 0.2 Ur Leukocyte Esterase (Negative) Trace H Urine RBC (0-2) HPF Negative Urine WBC (0-5) HPF 5-10 Ur Epithelial Cells (Negative) HPF Many Urine Crystals (Negative) HPF Negative Urine Bacteria (Negative) HPF Few Urine Casts (Negative) LPF Negative Urine Mucus (Negative) Negative Ur Culture Indicated? No/sq. contamination Urine Glucose (Negative) mg/dL Negative Urine Opiates Screen (Negative) Negative Urine Methadone Screen (Negative) Negative Ur Barbiturates Screen (Negative) Negative Ur Tricyclics Screen (Negative) Negative Ur Amphetamines Screen (Negative) Negative U Benzodiazepines Scrn (Negative) Negative Urine Cocaine Screen (Negative) Negative Ur THC Screen (Negative) Negative ECG Data Attestation: I personally reviewed and interpreted this ECG (s) as follows: Interpretation: EKG performed at 1558, reviewed and interpreted with Dr. Levine. Please see his official report. Sinus rhythm, ventricular rate of 66. No STEMI. HPI General Mode of arrival: EMS. Date/Time Provider Initiated Documentation: 04/06/20 15:56. Limitations to Documentation: no limitations. Information obtained by: patient and EMS. HPI Narrative: This is a 35-year-old female history of PCOS, presenting to the ER with what she describes as chest pain that began around 245 this afternoon while driving. She reports all day she did not feel well but has no focal symptoms. While driving she feels a sensation in her central lower chest that was a pressure, sharp, burning, did not radiate anywhere. It is worse with sitting forward but less with leaning back or lying down. She reports the pain was so sudden and severe it took her breath away but she denies any difficulty breathing or shortness of breath. It is associate with mild nausea but denies any vomiting. She reports that when her symptoms began she felt dizzy like the room was spinning, those symptoms were worse when she moves her head but overall though symptoms are improving. EMS was called, she was given aspirin on the way here but no other medications. She denies smoking cigarettes, alcohol use, drug use. Denies any symptoms like this previously. She reports similar symptoms when she required a cholecystectomy. Denies any back pain, bowel or bladder symptoms, pain in her extremities, swelling or redness of her calfs. Denies history of DVT or PE. She has never had a cardiac work-up in the past. She states that her father of a heart attack in his early 50s. Related Data Home Medications Medication Instructions Recorded Confirmed venlafaxine 37.5 mg PO DAILY 12/22/19 04/06/20 Allergies Allergy/AdvReac Type Severity Reaction Status Date / Time dextromethorphan HBr Allergy Anaphylaxsi Unverified 04/06/20 15:55 [From NyQuil] s doxylamine succinate Allergy Anaphylaxsi Unverified 04/06/20 15:55 [From NyQuil] s pseudoephedrine HCl Allergy Anaphylaxsi Unverified 04/06/20 15:55 [From NyQuil] s spider venom AdvReac Intermediate hives/swell Unverified 04/06/20 15:55 ing General Stated Complaint: Dizzy/Sync LOU: 3 Review of Systems Constitutional Constitutional: Denies fatigue, Denies fever(s), Denies headache(s) and Denies weakness Eyes Eyes: Denies change in vision ENT Ears, Nose, Mouth, and Throat: Reports dizziness, Denies headache(s) and Denies neck pain Cardiovascular Cardiovascular: Reports chest pain, Denies leg edema and Denies dyspnea Respiratory Respiratory: Denies cough and Denies dyspnea Gastrointestinal Gastrointestinal: Denies abdominal pain, Reports nausea and Denies vomiting Genitourinary Genitourinary: Denies dysuria Musculoskeletal Musculoskeletal: Denies back pain, Denies neck pain, Denies numbness and Denies tingling Integumentary/Breasts Skin/Breast: Denies rash Neurologic Neurologic: Reports dizziness, Denies headache(s), Denies numbness, Denies tingling and Denies weakness Endocrine Endocrine: Denies fatigue [facility] Medical History Obesity (Chronic) PCOS (polycystic ovarian syndrome) (Chronic) Uterine fibroid (Chronic) Surgical History section (Inactive) 2003 PCS 2008 RCS Cholecystectomy (Inactive) 2011 Colonoscopy - MAC (Inactive 01/21/17) Ligation of fallopian tube (Inactive) S/P gastric bypass (Chronic) S/P hysterectomy (Inactive) Family History Mother Diabetes Father Personal history of malignant neoplasm colorectal CA Grandfather Personal history of malignant neoplasm colorectal CA Social History Smoking/Tobacco Use Status: Former Tobacco Use Alcohol Intake: current Alcohol Intake frequency: a few times a month Alcohol type: hard liquor Drug use: Never Substance use type: does not use Details: quit smoking years ago Do you feel safe at home: Yes Do you feel safe in your relationship?: Yes Exam Const General: cooperative, healthy appearing, comfortable and no acute distress Orientation: alert, awake and oriented x3 HENMT Head: normal to inspection, normocephalic and atraumatic General nose exam: external nose normal Face and sinus: normal facial exam Mouth: moist mucous membranes Throat: posterior oropharynx normal Eyes Conjunctivae: conjunctivae normal Sclera: sclerae normal Neck Neck: normal visual inspection, full ROM, no meningeal signs, trachea midline and supple Chest Chest: normal palpation of entire chest wall Resp Effort & Inspection: normal respiratory effort and able to speak in complete sentences Auscultation: clear to auscultation bilaterally Cardio Rate: regular rate Rhythm: regular rhythm GI Inspection: normal to inspection Palpation: soft, not firm, no guarding, no pulsatile masses, not rigid and tender in the epigastrum and in the LUQ Auscultation: normal bowel sounds Back/Spine/Pelvis Back: No back tenderness Skin General skin exam: no rashes or lesions noted Neuro General: patient alert, patient awake, patient oriented x3, moves all extremities and no focal motor deficits Cranial Nerves: CN's II-XI intact bilaterally Cognition: normal cognition Speech: speech normal Gait: normal gait Motor: muscle tone normal throughout and strength 5/5 throughout Sensory Exam: no sensory deficits noted Extrem General: normal to inspection, full ROM and capillary refill normal Psych Appearance: grossly normal Mental Status: mental status grossly normal Course Vital Signs Vital signs: Vital Signs Temperature 37 C 04/06/20 15:44 Pulse 68 04/06/20 15:44 Respiratory Rate 14 04/06/20 15:44 Blood Pressure 103/47 L 04/06/20 15:44 Pulse Oximetry 98 04/06/20 15:44 Temperature 37 C 04/06/20 15:44 Temperature Source Skin 04/06/20 15:44 Pulse 59 L 04/06/20 17:13 Respiratory Rate 22 04/06/20 17:13 Respiratory Effort 04/06/20 17:00 Respiratory Depth Normal 04/06/20 17:00 Blood Pressure 107/58 L 04/06/20 17:13 Blood Pressure Position Supine 04/06/20 15:44 Pulse Oximetry 100 04/06/20 17:13 Oxygen Delivery Method Room Air 04/06/20 17:13 Oxygen Flow Rate 0 04/06/20 17:13 Pain Level 10 04/06/20 15:44 Comment 04/06/20 15:44 Lab/Test Results Lab/Test Results: Laboratory Tests Range/Units 04/06/20 04/06/20 04/06/20 15:56 15:56 17:28 WBC (4.4-10.8) 10^3/uL 6.90 RBC (3.93-5.22) 10^6/uL 4.17 Hgb (11.2-15.7) g/dL 12.0 Hct (36.0-46.0) % 37.1 MCV (80-95) fL 89.0 MCH (27.0-33.0) pg 28.8 MCHC (32.0-36.0) % 32.3 RDW (11.7-14.6) % 13.0 Plt Count (130-400) 10^3/uL 209 MPV (8.0-11.0) fL 10.5 Immature Gran % 0.3 Neutrophils % 49.5 Lymphocytes % 41.4 Monocytes % 6.5 Eosinophils % 1.9 Basophils % 0.4 Nucleated RBC % % 0 Absolute Neutrophils (1.2-6.7) 10^3/uL 3.41 Absolute Lymphocytes (1.2-3.4) 10^3/uL 2.86 Absolute Monocytes (0.1-0.8) 10^3/uL 0.45 Absolute Eosinophils (0.0-0.7) 10^3/uL 0.13 Absolute Basophils (0.0-0.2) 10^3/uL 0.03 Sodium (136-145) mmol/L 140 Potassium (3.5-5.1) mmol/L 4.0 Chloride (98-107) mmol/L 105 Carbon Dioxide (21.0-32.0) mmol/L 23.7 Anion Gap (3-11) mmol/L 11.3 H BUN (7-18) mg/dL 11 Creatinine (0.55-1.02) mg/dL 0.57 Estimated GFR/1.73 m2 (mL/min/1.73m2) >= 60.00 Glucose (74-106) mg/dL 93 Calcium (8.5-10.1) mg/dL 8.7 Magnesium (1.8-2.4) mg/dL 2.1 Total Bilirubin (0.2-1.0) mg/dL 0.2 AST (15-37) U/L 22 ALT (14-59) U/L 21 Alkaline Phosphatase (46-116) U/L 61 Troponin I (<0.06) ng/mL < 0.05 Total Protein (6.4-8.2) g/dL 6.8 Albumin (3.4-5.0) g/dL 3.6 TSH (0.36-3.74) uIU/mL 0.85 Urine Color (Yellow) Yellow Urine Clarity (Clear) Sl cloudy Urine pH (5-8) 6.5 Ur Specific Eunice (1.005-1.025) 1.015 Urine Protein (Negative) mg/dL Negative Urine Ketones (Negative) mg/dL Negative Urine Blood (Negative) Negative Urine Nitrite (Negative) Negative Urine Bilirubin (Negative) Negative Urine Urobilinogen (Up TO 0.2) EU/dL 0.2 Ur Leukocyte Esterase (Negative) Trace H Urine Glucose (Negative) mg/dL Negative
[2020-04-06 18:00] LABS: Bacteria Few HPF (Negative); Casts Negative LPF (Negative); Crystals Negative HPF (Negative); Epithelial Cells Many HPF (Negative); Mucus Negative (Negative); RBC Negative HPF (0-2)
--- NOTE | 2020-04-06 18:00 | RT.EKG_ITS ---
APPROVED REPORT Exam: Resting ECG Patient Location: E HR:64 bpm ECG Measurements Heart Rate 64 AXIS MO 184 P 9 QRSd 91 QRS 35 QT 397 T 16 QTc 409 Conclusion Sinus rhythm...normal P axis, V-rate 60- 99
[2020-04-06 18:01] LABS: C & S Indicated? No/Sq. Contamination
[2020-04-06 18:10] LABS: Lipase 526 U/L (73-393)
[2020-04-06 18:16] LABS: *AMPHETAMINES SCREEN URINE Negative (Negative); *BARBITURATES SCREEN URINE Negative (Negative); *BENZODIAZEPINES SCREEN URINE Negative (Negative); Cannabinoids THC Negative (Negative); Cocaine Screen,Urine Negative (Negative); METHADONE URINE SCREEN Negative (Negative); OPIATES URINE SCREEN Negative (Negative)
[2020-04-06 18:17] LABS: Tricyclic Antidepressants Negative (Negative)
[2020-04-06 19:52] LABS: Troponin I < 0.05 ng/mL (<0.06)
== END 2020-04-06 19:20 | disposition home or self-care (01) ==
PROVIDERS: Emergency Provider Physician Assistant; PCP Family Medicine
DX: K85.90 Acute pancreatitis without necrosis or infection, unspecified (principal); R11.0 Nausea; R42 Dizziness and giddiness
CPT/HCPCS: 36415; 80053; 80307; 81025; 83690; 93005; 96361; 96374; 99285; 71046; 81003; 81015; 83735; 84443; 84484; 85025; 93010; J2060

== ENCOUNTER 2020-07-30 00:46 | Emergency (ER) | payer MEDICAID, SELFPAY ==
[2020-07-30 00:55] VITALS: BP 132/88; PULSE 80; RESP 18; TEMP 36.7; O2SAT 100
--- NOTE | 2020-07-30 01:12 | DI.RAD_ITS ---
EXAM: XR PORTABLE CHEST AP CLINICAL HISTORY: cough, r/o pneumonia TECHNIQUE: 2D digital imaging was performed. COMPARISON: CR,XR XR CHEST 2V PA LATERAL from 04/06/2020 FINDINGS: MEDIASTINUM: Normal. HEART: Normal. PULMONARY VASCULATURE: Normal. LUNGS: Clear. PLEURAL SPACE: No pleural effusion or pneumothorax. BONE:Within normal limits for the patient's age. OTHER FINDINGS:Normal. IMPRESSION: No acute pulmonary findings. DATA REPOSITORY: RADIATION DOSE DELIVERED:
--- NOTE | 2020-07-30 01:12 | ED.GENADUL_ITS ---
Discharge Plan Disposition Patient Disposition: HOME Condition: Good Discharge Details Clinical Impression: URI (upper respiratory infection), Head congestion Primary Care Provider: Kezia Aguirre ED Provider: Ward Jade Home Meds and New Rx's Prescriptions: New loratadine 10 mg capsule 10 mg PO DAILY Qty: 20 RF: 0 Discharge Instructions Instructions: Upper Respiratory Infection (ED) Additional Instructions: At this time your symptoms are consistent with a viral upper respiratory infection. It is very unlikely that this is from coronavirus. Out of an abundance of precaution it would be reasonable to self quarantine yourself until symptom-free for greater than 24-48 hours or your Covid test is returned. If you have not heard back from us for your results in the next 2 to 3 days please contact us to discuss them if they have returned. It would be prudent to wear a mask at all times, always wash your hands frequently, follow-up closely with your primary care provider. You can always call their office first. Please take the loratadine to help with your congestion. Please use a [place] pot as we discussed to help relieve the congestion as well. If you notice any worsening of your symptoms, or any new symptoms such as vomiting, diarrhea, fever, chills, shortness of breath, chest pain, numbness, weakness, or fainting, please CALL and then return immediately to the emergency department for reevaluation. Please CALL first and then follow up with your primary care provider as soon as possible for reassessment and reevaluation. As always, it was a pleasure participating in your medical care today. Stand Alone Forms: Work Release Referrals: Kezia Aguirre [Primary Care Provider] - Medical Decision Making 35-year-old female with a past medical history of PCOS, uterine fibroids, presents today for evaluation of congestion and dry cough. Patient states that for the last week she has had these symptoms. Over the last day or so she has become notably more congested and her cough is worsened. It is nonproductive. She denies any fever or chills. She denies any loss of taste or smell. She denies any contact with anyone with Covid, or any travel. 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 She does admit to pressure in her sinuses and in her ears but denies any pain otherwise. She has been taking [id number] cold and flu medications, and does admit to some improvement with this. No other complaints at this time. She is not a smoker. Denies PE risk factors such as recent long car rides, immobilization, recent surgery, prior history of DVT or PE, family history of PE or DVT, morbid obesity, exogenous estrogen and smoking, hemoptysis, history of cancer. Physical exam demonstrates evidence of congestion, but lung sounds are otherwise notably unremarkable. Oxygenation is 100%. Symptoms appearing consistent with Covid, however due to the current local climate I do feel that testing is indicated. Will test for flu and also get a chest x-ray to rule out pneumonia. Signs and symptoms are more consistent with a viral upper respiratory infection likely causing mild sinusitis. I do feel she would benefit from an antihistamine. 1:46 AM Chest x-ray negative for acute process, flu negative. Patient doing well, vital signs remained stable. Symptoms consistent with viral upper respiratory infection and congestion. No indication for antibiotics at this time. No signs of pneumonia on chest x-ray. Will give loratadine for home use which she has tolerated in the past, recommend [place] pot. Discussed red flags which to return. I have extensively reviewed the treatment plan and discharge instructions with the patient. I have addressed all patient concerns at this time. The patient was made aware of what symptoms to monitor for that would warrant a return to the emergency department. Discussed the plan with the patient, they demonstrate verbal understanding and agreement with our assessment and plan at this time. FINDINGS: Lungs: No consolidation. Pleural space: No pleural effusion. No pneumothorax. Heart/Mediastinum: No cardiomegaly. Bones/joints: No acute findings. IMPRESSION: No acute findings. Thank you for allowing us to participate in the care of your patient. Dictated and Authenticated by: Ariane Chen MD 07/30/2020 1:26 AM Eastern Time ([place] & [place]) HPI General Date/Time Provider Initiated Documentation: 07/30/20 00:48 . HPI Narrative: 35-year-old female with a past medical history of PCOS, uterine fibroids, presents today for evaluation of congestion and dry cough. Patient states that for the last week she has had these symptoms. Over the last day or so she has become notably more congested and her cough is worsened. It is nonproductive. She denies any fever or chills. She denies any loss of taste or smell. She denies any contact with anyone with Covid, or any travel. 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 She does admit to pressure in her sinuses and in her ears but denies any pain otherwise. She has been taking oowg-lnz-klgxzsb cold and flu medications, and does admit to some improvement with this. No other complaints at this time. She is not a smoker. Denies PE risk factors such as recent long car rides, immobilization, recent surgery, prior history of DVT or PE, family history of PE or DVT, morbid obesity, exogenous estrogen and smoking, hemoptysis, history of cancer. Related Data Home Medications Medication Instructions Recorded Confirmed loratadine 10 mg PO DAILY #20 cap 07/30/20 Previous Rx's Medication Instructions Recorded loratadine 10 mg PO DAILY #20 cap 07/30/20 Allergies Allergy/AdvReac Type Severity Reaction Status Date / Time dextromethorphan HBr Allergy Anaphylaxsi Unverified 07/30/20 01:03 [From NyQuil] s doxylamine succinate Allergy Anaphylaxsi Unverified 07/30/20 01:03 [From NyQuil] s pseudoephedrine HCl Allergy Anaphylaxsi Unverified 07/30/20 01:03 [From NyQuil] s spider venom AdvReac Intermediate hives/swell Unverified 07/30/20 01:03 ing General Stated Complaint: RespSymp LOU: 3 Review of Systems All systems reviewed & are unremarkable except as noted in HPI and below PFSH Medical History (Updated 07/30/20 @ 01:15 by Ward Jade DO) Obesity PCOS (polycystic ovarian syndrome) Uterine fibroid Surgical History section 2004 PCS 2008 RCS Cholecystectomy 2012 Colonoscopy - MAC (01/21/17) Ligation of fallopian tube S/P gastric bypass S/P hysterectomy Family History Mother Diabetes Father Personal history of malignant neoplasm colorectal CA Grandfather Personal history of malignant neoplasm colorectal CA Social History Smoking/Tobacco Use Status: Former Tobacco Use Smoking risk assessment performed?: Yes Alcohol Intake: current Alcohol Intake frequency: a few times a month Alcohol type: hard liquor Drug use: Never Substance use type: does not use Details: quit smoking years ago Do you feel safe at home: Yes Do you feel safe in your relationship?: Yes Exam Narrative Exam Narrative: 1.Const: Well-nourished, Well-developed, appearing stated age 2.Eyes: PERRL, no conjunctival injection, and symmetrical lids. 3.ENT: Atraumatic external nose and ears. Moist MM. Neck: Symmetric, trachea midline, No thyromegaly. No erythema of the posterior oropharynx. No evidence of otitis media. Mild sinus congestion noted 4.CVS: +S1/S2, No murmurs or gallops. Peripheral pulses 2+ and equal in all extremities. Brisk capillary refill in all extremities. 5.RESP: Unlabored respiratory effort. Clear to auscultation bilaterally. No wheezes rales or rhonchi. No significant crackles in the bases on my exam in comparison with nursing exam. 6.GI: Soft, Nontender/Nondistended, No hepatosplenomegaly. No guarding or rebound. 7.MSK: Normocephalic/Atraumatic, Extremities w/o deformity or ttp No cyanosis or clubbing, Normal movement of all extremities, no calf tenderness 8.Skin: Warm, Dry. No rashes or lesions. 9.Neuro: physician representative II-XII grossly intact. Sensation grossly intact, no focal neurologic deficits. 10.Psych: (AAO) x3. Appropriate mood and affect Course Vital Signs Vital signs: Vital Signs Temperature 36.7 C 07/30/20 00:55 Pulse 80 07/30/20 00:55 Respiratory Rate 18 07/30/20 00:55 Blood Pressure 132/88 07/30/20 00:55 Pulse Oximetry 100 07/30/20 00:55 Temperature 36.7 C 07/30/20 00:55 Temperature Source Skin 07/30/20 00:55 Pulse 80 07/30/20 00:55 Respiratory Rate 18 07/30/20 00:55 Respiratory Effort 07/30/20 01:01 Respiratory Depth Normal 07/30/20 01:01 Blood Pressure 132/88 07/30/20 00:55 Blood Pressure Position Sitting 07/30/20 00:55 Pulse Oximetry 100 07/30/20 00:55 Oxygen Delivery Method Room Air 07/30/20 00:55 Oxygen Flow Rate 0 07/30/20 00:55 Pain Level 0 07/30/20 00:55 Lab/Test Results Lab/Test Results: 07/30/20 01:05 Nasopharynx Influenza Types A,B Antigen - Pending
--- NOTE | 2020-07-30 01:26 | DI.VRAD_ITS ---
PROCEDURE INFORMATION: Exam: XR Chest, 1 View Exam date and time: 07/30/2020 1:02 AM Age: 35 years old Clinical indication: Patient HX: Cough, ? pneumonia TECHNIQUE: Imaging protocol: XR of the chest Views: 1 view. COMPARISON: CR XR CHEST 2V PA LATERAL 04/06/2020 5:02 PM FINDINGS: Lungs: No consolidation. Pleural space: No pleural effusion. No pneumothorax. Heart/Mediastinum: No cardiomegaly. Bones/joints: No acute findings. IMPRESSION: No acute findings. Dictated and Authenticated by: Ariane Chen MD. Ordering:NOE Hopper MD
[2020-07-30 01:50] VITALS: BP 113/67; PULSE 73; RESP 14; O2SAT 98
[2020-08-01 17:52] LABS: COVID-19 RT-PCR UVMMC Result Negative (Negative)
== END 2020-07-30 02:00 | disposition home or self-care (01) ==
LOC: ER 02:00
PROVIDERS: Emergency Provider Student in an Organized Health Care Education/Training Program; PCP Family Medicine
DX: R09.89 Other specified symptoms and signs involving the circulatory and respiratory systems (principal); J06.9 Acute upper respiratory infection, unspecified; B34.9 Viral infection, unspecified; Z03.818 Encounter for observation for suspected exposure to other biological agents ruled out; Z87.891 Personal history of nicotine dependence
CPT/HCPCS: 87449; 99284; U0003; 71045; 99283

== ENCOUNTER 2020-12-30 09:10 | Outpatient (CLI) | payer MEDICAID, SELFPAY ==
[2020-12-30 11:33] LABS: Source Nasal/Nares
[2020-12-30 15:04] LABS: COVID-19 PCR Negative (Negative)
== END 2020-12-30 09:11 | disposition home or self-care (01) ==
PROVIDERS: PCP Family Medicine; Visit Provider Surgery Plastic and Reconstructive Surgery
DX: Z20.822 Contact with and (suspected) exposure to COVID-19 (principal); Z01.818 Encounter for other preprocedural examination
CPT/HCPCS: 87635

== ENCOUNTER 2021-03-07 17:03 | Emergency (ER) | payer MEDICAID, SELFPAY ==
[2021-03-07 17:06] VITALS: BP 143/64; PULSE 65; RESP 16; TEMP 36.9; O2SAT 100
--- NOTE | 2021-03-07 17:29 | ED.GENADUL_ITS ---
Discharge Plan Disposition Patient Disposition: HOME Condition: Stable Discharge Details Clinical Impression: Acute cervical myofascial strain, Acute thoracic myofascial strain Primary Care Provider: Kezia Aguirre ED Provider: Jamee Sapp Home Meds and New Rx's Prescriptions: New methocarbamol 500 mg tablet 500 mg PO Q6H PRN (Reason: muscle spasm) Qty: 14 RF: 0 Discharge Instructions Instructions: Cervical Strain (ED), Thoracic Back Strain (ED) Additional Instructions: Alternate ice and heat to the affected area(s) several times daily for 20 minutes at a time. Alternate tylenol and motrin as needed and directed for pain. Take the tramadol as needed and directed for pain not relieved with Tylenol or Motrin. Take the muscle relaxer methocarbamol as needed and directed. Follow-up with your primary care doctor in 1 week. Return to the emergency department with any worsening or new concerning symptoms. Discharge Data Discharge Date/Time-TO BE ENTERED AT DEPARTURE: 03/07/21 18:16 Discharge Physician: Jamee Sapp Medical Decision Making 35yo F who presents to the ED with a complaint of right-sided neck and upper back pain for the past 2 days. Pain worse with head movement. Patient appears uncomfortable and pain is reproducible with head movement, most specifically extension and right head rotation. She appears nontoxic. She has no focal deficits or meningeal signs. Neurovascularly intact. As she has no midline spinal tenderness, report of injury or any focal deficits, do not see an indication for imaging. Suspect most likely acute cervical and thoracic muscular strain. We will give a dose of IM Toradol and p.o. Valium. Patient advised to alternate ice and heat, Tylenol and Motrin. She was given a prescription for muscle relaxers and 2 tabs of tramadol to go. Advised to follow up with the primary care doctor for re-evaluation. Usual and customary return precautions given prior to discharge. Medical Records Medical records reviewed: Yes I reviewed the patient's medical records. HPI General Mode of arrival: ambulatory . Date/Time Provider Initiated Documentation: 03/07/21 17:29 . Limitations to Documentation: no limitations . Information obtained by: patient . HPI Narrative: Patient is a 35-year-old female who woke up 2 days ago with right-sided neck pain radiating from the right side of her neck down to the right upper back. She states the pain is worse with movement of her head. She has taken ibuprofen without relief, last dose yesterday. She denies any fever, headache, sore throat, arm weakness or numbness or known injury. Related Data Home Medications Medication Instructions Recorded Confirmed methocarbamol 500 mg PO Q6H PRN #14 tab 03/07/21 Previous Rx's Medication Instructions Recorded methocarbamol 500 mg PO Q6H PRN #14 tab 03/07/21 Allergies Allergy/AdvReac Type Severity Reaction Status Date / Time kiwi Allergy Intermediate Swelling/Ed Unverified 03/07/21 17:10 leslie dextromethorphan HBr Allergy Anaphylaxsi Unverified 03/07/21 17:10 [From NyQuil] s doxylamine succinate Allergy Anaphylaxsi Unverified 03/07/21 17:10 [From NyQuil] s pseudoephedrine HCl Allergy Anaphylaxsi Unverified 03/07/21 17:10 [From NyQuil] s spider venom AdvReac Intermediate hives/swell Unverified 03/07/21 17:10 ing General Stated Complaint: Nk/Back Pain LOU: 4 Review of Systems All systems reviewed & are unremarkable except as noted in HPI and below Constitutional Constitutional: Reports as per HPI, Denies chills and Denies fever(s) Eyes Eyes: Denies blurry vision ENT Ears, Nose, Mouth, and Throat: Denies dizziness, Reports neck pain, Denies sore throat and Denies throat swelling Cardiovascular Cardiovascular: Denies chest pain and Denies dyspnea Respiratory Respiratory: Denies cough and Denies dyspnea Gastrointestinal Gastrointestinal: Denies abdominal pain, Denies diarrhea and Denies vomiting Genitourinary Genitourinary: Denies hematuria and Denies dysuria Musculoskeletal Musculoskeletal: Reports back pain, Reports neck pain and Denies numbness Integumentary/Breasts Skin/Breast: Denies lesions and Denies rash Neurologic Neurologic: Denies dizziness, Denies localized weakness and Denies numbness Allergic/Immunologic Allergic/Immunologic: Denies throat swelling [facility] Medical History (Updated 03/07/21 @ 18:06 by Jamee Sapp DO) Obesity PCOS (polycystic ovarian syndrome) Uterine fibroid Surgical History section 2004 PCS 2008 RCS Cholecystectomy 2012 Colonoscopy - MAC (01/21/17) Ligation of fallopian tube S/P gastric bypass S/P hysterectomy Family History Mother Diabetes Father Personal history of malignant neoplasm colorectal CA Grandfather Personal history of malignant neoplasm colorectal CA Social History Smoking/Tobacco Use Status: Former Tobacco Use Smoking risk assessment performed?: Yes Alcohol Intake: current Alcohol Intake frequency: a few times a month Alcohol type: hard liquor Drug use: Never Substance use type: does not use Details: quit smoking years ago Do you feel safe at home: Yes Do you feel safe in your relationship?: Yes Exam Const General: cooperative, healthy appearing and no acute distress HENMT Head: normal to inspection Mouth: oral mucosae normal Eyes General: appearance normal, both eyes and all related structures Neck Neck: normal visual inspection Resp Effort & Inspection: normal respiratory effort and able to speak in complete sentences Cardio Rate: regular rate Back/Spine/Pelvis Cervical Spine: cervical muscular tenderness (R sided), pain with cervical ROM, cervical spinal tenderness and cervical ROM abnormal (pain with extension, R rotation) Thoracic/Lumbar Spine: thoracic and lumbar spine normal to inspection Skin General skin exam: no rashes or lesions noted Neuro General: patient alert, patient awake, patient oriented x3, moves all extremities and no focal motor deficits Motor: muscle tone normal throughout and strength 5/5 throughout Other: B/L radial/median/ulnar motor/sensory function intact. Extrem General: normal to inspection and full ROM Other: B/L radial pulses intact. Psych Appearance: grossly normal Affect: normal affect Course Vital Signs Vital signs: Vital Signs Temperature 98.4 F 03/07/21 17:06 Pulse 65 03/07/21 17:06 Respiratory Rate 16 03/07/21 17:06 Blood Pressure 143/64 H 03/07/21 17:06 Pulse Oximetry 100 03/07/21 17:06 Temperature 98.4 F 03/07/21 17:06 Temperature Source Temporal Artery Scan 03/07/21 17:06 Pulse 65 03/07/21 17:06 Respiratory Rate 16 03/07/21 17:06 Respiratory Effort Non-Labored 03/07/21 17:09 Blood Pressure 143/64 H 03/07/21 17:06 Blood Pressure Position Sitting 03/07/21 17:06 Pulse Oximetry 100 03/07/21 17:06 Oxygen Delivery Method Room Air 03/07/21 17:06 Oxygen Flow Rate 0 03/07/21 17:06 Pain Level 10 03/07/21 17:06
[2021-03-07] MEDS: diazePAM 5 MG TAB PO (17:57)
[2021-03-07] MEDS: Ketorolac 30 MG/ML VIAL IVP (17:58)
== END 2021-03-07 18:16 | disposition home or self-care (01) ==
PROVIDERS: Emergency Provider Physician Assistant; PCP Family Medicine
DX: S16.1XXA Strain of muscle, fascia and tendon at neck level, initial encounter (principal); S29.012A Strain of muscle and tendon of back wall of thorax, initial encounter; X58.XXXA Exposure to other specified factors, initial encounter
CPT/HCPCS: 96372; 99284; 99283; J1885

== ENCOUNTER 2021-04-21 09:13 | Emergency (ER) | payer MEDICAID, SELFPAY ==
[2021-04-21 09:15] VITALS: BP 131/75; PULSE 79; RESP 16; TEMP 36.7; O2SAT 98
--- NOTE | 2021-04-21 09:22 | ED.GENADUL_ITS ---
Discharge Plan Disposition Patient Disposition: HOME Condition: Stable Discharge Details Clinical Impression: Contusion, Hematoma, Abrasion, Ecchymosis Primary Care Provider: Kezia Aguirre ED Provider: Addie Sy Home Meds and New Rx's Prescriptions: Continued methocarbamol 500 mg tablet 500 mg PO Q6H PRN (Reason: muscle spasm) Qty: 14 RF: 0 Discharge Instructions Instructions: Contusion in Adults (ED), Hematoma (ED) Additional Instructions: Imaging is reassuring today, no evidence of fracture or blood clot. However, you have a small hematoma. Encouraged rest, ice, elevation. Tylenol and/or Ibuprofen as needed for discomfort. Please use ian wrap for swelling and pain. Please follow up with primary care in one week for reevaluation. If you develop fevers/chills, increased pain or other new/worsening symptoms please seek care urgently once again. Referrals: Kezia Aguirre [Primary Care Provider] - Medical Decision Making Patient is a pleasant 36-year-old female presenting today with chief complaint of left lower extremity pain. Her she was at [id number] rollover 6 days ago. States that something crushed her leg which is not quite clear on what occurred. States that they are not traveling at a high rate of speed but were trying to do a donut. States the tire caught and machine and subsequently rolled over. Since that time she has been having swelling and pain to the left lower extr emity. She reports that initially this had been improving but over the past few days has greatly increased. States that she has some numbness and tingling particularly to the lateral aspect of the left lower extremity. Denies any fevers or chills. States that she is otherwise feeling well. Does have a small open abrasion. Tetanus is up-to-date. On exam, patient appears nontoxic. No evidence of respiratory distress. She denies any shortness of breath. Patient does not appear septic. Exam the left lower extremity is significant for large area of ecchymosis. She does have a small abrasion along the superior medial aspect of the area of ecchymosis. Chest swelling around this area as well. No fluctuance. Most of the hematoma. No palpable fracture. 2+ distal pulses. Sharp dull testing is limited along the lateral aspect of the foot and lower extremity. However, she is able to feel each time I touch her, she is not able to differentiate this region. This is intact medially. She has good range of motion of the knee and ankle. Given mechanism of injury and increased swelling, I am concerned potential DVT. Her exam is more consistent with a small area of hematoma. Of infection. Considered fracture although I find it unlikely as the trauma seems to more over the tibia patient is nonweightbearing well the past week. Contacted by the agricultural research technician. She advised that ultrasound is consistent with small hematoma approximately 3 cm in diameter. FINDINGS: BONES: No acute fracture is present. No bony destructive lesion is seen. Visualized portion of knee and ankle joints are unremarkable. SOFT TISSUE: Normal. IMPRESSION: Unremarkable radiographs of the left tibia and fibula. FINDINGS: The common femoral, femoral and popliteal veins demonstrate normal c ompressibility, augmentation, and color Doppler. The posterior tibial veins are patent. No saphenous vein thrombosis or other superficial venous thrombosis is seen. No Aguilera's cyst is seen. Fluid collection measuring 2.5 x 1.1 x 3.2 centimeters in the area of swelling related to recent injury. IMPRESSION: Small posttraumatic fluid collection. No evidence of DVT. Discussed with patient. Encourage rest, ice, elevation. Tylenol and ibuprofen as needed for discomfort. Will Ian wrap to help with swelling compression. Advise follow-up with primary care next week for reevaluation. We did discuss potential complications including infection need to seek care urgently once again. Other questions or concerns were addressed and she is plan. HPI General Mode of arrival: ambulatory . Date/Time Provider Initiated Documentation: 04/21/21 09:22 . Limitations to Documentation: no limitations . Information obtained by: patient and RN notes reviewed . History of Present Illness 36 year old F presents to the emergency department with the chief complaint of LLE swelling and ecchymosis after crush injury, described as severe, with intensity rated at 10. Quality is described as aching, and is localized to the left and lower extremity. Patient extremity. Patient star sarah experiencing this day(s) (6) and it has been constant. Immobilization improves symptom(s), Movement worsens symptoms . Patient notes no other symptoms.; denies fever/chills. Patient did receive the following treatments prior to arrival, NSAID Related Data Home Medications Medication Instructions Recorded Confirmed methocarbamol 500 mg PO Q6H PRN #14 tab 03/07/21 Previous Rx's Medication Instructions Recorded methocarbamol 500 mg PO Q6H PRN #14 tab 03/07/21 Allergies Allergy/AdvReac Type Severity Reaction Status Date / Time kiwi Allergy Intermediate Swelling/Ed Unverified 03/07/21 17:10 leslie dextromethorphan HBr Allergy Anaphylaxsi Unverified 03/07/21 17:10 [From NyQuil] s doxylamine succinate Allergy Anaphylaxsi Unverified 03/07/21 17:10 [From NyQuil] s pseudoephedrine HCl Allergy Anaphylaxsi Unverified 03/07/21 17:10 [From NyQuil] s spider venom AdvReac Intermediate hives/swell Unverified 03/07/21 17:10 ing General Stated Complaint: Orthopedic LOU: 3 Review of Systems Constitutional Constitutional: Reports as per HPI, Denies chills, Denies fever(s), Denies headache(s) and Denies weakness ENT Ears, Nose, Mouth, and Throat: Denies headache(s) Cardiovascular Cardiovascular: Reports as per HPI Respiratory Respiratory: Reports as per HPI and Denies cough Musculoskeletal Musculoskeletal: Reports as per HPI, Reports radiating pain into limb and Reports tingling Integumentary/Breasts Skin/Breast: Reports as per HPI, Reports skin swelling, Reports unusual bruising and Reports wounds Neurologic Neurologic: Reports as per HPI, Denies headache(s), Reports tingling, Reports paresthesias and Denies weakness [facility] Medical History (Updated 04/21/21 @ 10:39 by MERVIN Gallardo) Obesity PCOS (polycystic ovarian syndrome) Uterine fibroid Surgical History section 2004 PCS 2008 RCS Cholecystectomy 2012 Colonoscopy - MAC (01/21/17) Ligation of fallopian tube S/P gastric bypass S/P hysterectomy Family History Mother Diabetes Father Personal history of malignant neoplasm colorectal CA Grandfather Personal history of malignant neoplasm colorectal CA Social History Smoking/Tobacco Use Status: Former Tobacco Use Smoking risk assessment performed?: Yes Alcohol Intake: current Alcohol Intake frequency: a few times a month Alcohol type: hard liquor Drug use: Never Substance use type: does not use Details: quit smoking years ago Do you feel safe at home: Yes Do you feel safe in your relationship?: Yes Exam Const General: cooperative, healthy appearing, comfortable, no acute distress, well developed and well groomed Nutritional Appearance: well nourished and overweight Orientation: alert and awake Resp Effort & Inspection: normal respiratory effort, able to speak in complete se ntences and no respiratory distress Cardio Rate: regular rate Rhythm: regular rhythm Skin General skin exam: ecchymosis Trauma: abrasion Neuro General: patient alert and patient awake Cognition: normal cognition Speech: speech normal Gait: normal gait Motor: muscle tone normal throughout Sensory Exam: sensory deficits noted (sharp/dull testing impared lateral foot and lateral lower extremity) Extrem Upper/lower leg/hip images: 1. Area of ecchymosis and swelling. Has a small abrasion central and superior aspect. Area under this is more swollen. No erythema or warmth. More consistent with likely hematoma. Patient does have some mild discomfort circumferentially no palpable cord. 2+ distal pulses and intact capillary refill. Sharp dull testing is intact medially but is altered along the lateral aspect although she is able to feel the touch, she is not able to communicate between the 2 sentences. Psych Appearance: grossly normal and well kempt Mental Status: mental status grossly normal Speech and Movement: speech and movement normal Course Vital Signs Vital signs: Vital Signs Temperature 36.7 C 04/21/21 09:15 Pulse 79 04/21/21 09:15 Respiratory Rate 16 04/21/21 09:15 Blood Pressure 131/75 04/21/21 09:15 Pulse Oximetry 98 04/21/21 09:15 Temperature 36.7 C 04/21/21 09:15 Temperature Source Skin 04/21/21 09:15 Pulse 79 04/21/21 09:15 Respiratory Rate 16 04/21/21 09:15 Respiratory Effort 04/21/21 09:20 Blood Pressure 131/75 04/21/21 09:15 Blood Pressure Position Sitting 04/21/21 09:15 Pulse Oximetry 98 04/21/21 09:15 Oxygen Delivery Method Room Air 04/21/21 09:15 Oxygen Flow Rate 0 04/21/21 09:15 Pain Level 10 04/21/21 09:15
--- NOTE | 2021-04-21 09:30 | DI.US_ITS ---
Exam(s) US LOWER EXTREMITY VENOUS LT EXAM: US LOWER EXTREMITY VENOUS LT CLINICAL HISTORY: crush injury 1wk ago, roll over side by side. TECHNIQUE: Lower extremity venous ultrasound performed using grayscale, color-flow, and spectral Do ppler analysis. COMPARISON: No exams were available for comparison FINDINGS: The common femoral, femoral and popliteal veins demonstrate normal compressibility, augmentation, and color Doppler. The posterior tibial veins are patent. No saphenous vein thrombosis or other superfi cial venous thrombosis is seen. No Aguilera's cyst is seen. Fluid collection measuring 2.5 x 1.1 x 3.2 centimeters in the area of swelling related to recent injury. IMPRESSION: Small posttraumatic fluid collection. No evidence of DVT. DATA REPOSITORY:
--- NOTE | 2021-04-21 09:30 | DI.RAD_ITS ---
Exam(s) XR TIB/FIB LT EXAM: XR TIB/FIB LT CLINICAL HISTORY: crush injury 1wk ago, roll over side by side. TECHNIQUE: 2D digital imaging was performed COMPARISON: CR LEFT FEMUR from 12/01/2017 FINDINGS: BONES: No acute fracture is present. No bony destructive lesion is seen. Visualized portion of knee a nd ankle joints are unremarkable. SOFT TISSUE: Normal. IMPRESSION: Unremarkable radiographs of the left tibia and fibula. DATA REPOSITORY: RADIATION DOSE DELIVERED:
[2021-04-21] MEDS: Acetaminophen 325 MG TAB 650 MG PO (09:41)
== END 2021-04-21 10:45 | disposition home or self-care (01) ==
PROVIDERS: Emergency Provider Physician Assistant; PCP Family Medicine
DX: S80.12XA Contusion of left lower leg, initial encounter (principal); S80.812A Abrasion, left lower leg, initial encounter; V86.65XA Passenger of 3- or 4- wheeled all-terrain vehicle (ATV) injured in nontraffic accident, initial encounter
CPT/HCPCS: 99284; 73590; 93971; 99283

== ENCOUNTER 2021-07-24 11:19 | Emergency (ER) | payer OTHER, SELFPAY ==
[2021-07-24 11:46] VITALS: BP 169/84; PULSE 66; RESP 17; TEMP 36.6; O2SAT 98
[2021-07-24] MEDS: Cellulose,Oxidized 2X3 PKT 1 EACH MC (11:55)
--- NOTE | 2021-07-24 12:12 | ED.GENADUL_ITS ---
Discharge Plan Disposition Patient Disposition: HOME Condition: Good Discharge Details Clinical Impression: Avulsion of finger Primary Care Provider: Kezia Aguirre ED Provider: Sobia Mckeon Home Meds and New Rx's Prescriptions: Discontinued methocarbamol 500 mg tablet 500 mg PO Q6H PRN (Reason: muscle spasm) Qty: 14 RF: 0 Discharge Instructions Additional Instructions: Follow-up with occupational therapy Keep wound clean and dry Take ibuprofen and Tylenol as needed for pain In 3 days you may soak off the Surgicel, do not attempt to remove this dressing prior to soaking it as the clot will be removed and will start bleeding again Follow-up with occupational health listed below for dressing change, recommend every 2 to 3 days of dressing change While at work keep a Band-Aid and gloves You may return in 2-3 days, must keep dry and clean as tolerated Referrals: Evette Chavez [REG OCCUPATIONAL THERAPIST] - Medical Decision Making Coagulation achieved Surgicel applied Wound cleansed Occupational health referral in the outpatient setting Tetanus up-to-date 2017 Return precautions discussed and patient expressed understanding Medical Records Medical records reviewed: Yes I reviewed the patient's medical records. HPI General Mode of arrival: ambulatory . Date/Time Provider Initiated Documentation: 07/24/21 11:39 . Limitations to Documentation: no limitations . Information obtained by: patient . HPI Narrative: This 36-year-old female presents with laceration to right index finger. She was cutting lunchmeat at her place of employment when she accidentally avulsed her finger. She denies any additional injuries. Her tetanus up-to-date. She denies chance of . Related Data Allergies Allergy/AdvReac Type Severity Reaction Status Date / Time kiwi Allergy Intermediate Swelling/Ed Unverified 07/24/21 11:50 leslie dextromethorphan HBr Allergy Anaphylaxsi Unverified 07/24/21 11:50 [From NyQuil] s doxylamine succinate Allergy Anaphylaxsi Unverified 07/24/21 11:50 [From NyQuil] s pseudoephedrine HCl Allergy Anaphylaxsi Unverified 07/24/21 11:50 [From NyQuil] s spider venom AdvReac Intermediate hives/swell Unverified 07/24/21 11:50 ing General Stated Complaint: Laceration LOU: 4 Review of Systems All systems reviewed & are unremarkable except as noted in HPI and below PFSH All Active Problems (Updated 07/24/21 @ 12:16 by MERVIN Bonner) Bronchitis (Acute) Acute cervical myofascial strain (Acute) Acute thoracic myofascial strain (Acute) Contusion (Acute) Hematoma (Acute) Abrasion (Acute) Ecchymosis (Acute) Avulsion of finger (Acute) Medical History (Updated 07/24/21 @ 12:16 by MERVIN Bonner) Obesity PCOS (polycystic ovarian syndrome) Uterine fibroid Surgical History section 2004 PCS 2007 RCS Cholecystectomy 2012 Colonoscopy - MAC (01/21/17) Ligation of fallopian tube S/P gastric bypass S/P hysterectomy Family History Mother Diabetes Father Personal history of malignant neoplasm colorectal CA Grandfather Personal history of malignant neoplasm colorectal CA Social History Smoking/Tobacco Use Status: Former Tobacco Use Smoking risk assessment performed?: Yes Alcohol Intake: current Alcohol Intake frequency: a few times a month Alcohol type: hard liquor Drug use: Never Substance use type: does not use Details: quit smoking years ago Do you feel safe at home: Yes Do you feel safe in your relationship?: Yes Exam Const General: cooperative, comfortable and no acute distress Extrem Hand/finger images: 1. Half inch avulsion noted, neurovascularly intact Course Vital Signs Vital signs: Vital Signs Temperature 36.6 C 07/24/21 11:46 Pulse 66 07/24/21 11:46 Respiratory Rate 17 07/24/21 11:46 Blood Pressure 169/84 H 07/24/21 11:46 Pulse Oximetry 98 07/24/21 11:46 Temperature 36.6 C 07/24/21 11:46 Temperature Source Oral 07/24/21 11:46 Pulse 66 07/24/21 11:46 Respiratory Rate 17 07/24/21 11:46 Respiratory Effort Non-Labored 07/24/21 11:49 Blood Pressure 169/84 H 07/24/21 11:46 Blood Pressure Position Sitting 07/24/21 11:46 Pulse Oximetry 98 07/24/21 11:46 Oxygen Delivery Method Room Air 07/24/21 11:46 Oxygen Flow Rate 0 07/24/21 11:46 Pain Level 5 07/24/21 11:59
== END 2021-07-24 12:22 | disposition home or self-care (01) ==
PROVIDERS: Emergency Provider Physician Assistant; PCP Family Medicine
DX: S61.200A Unspecified open wound of right index finger without damage to nail, initial encounter (principal); W29.0XXA Contact with powered kitchen appliance, initial encounter; Y99.0 Civilian activity done for income or pay
CPT/HCPCS: 99282

== ENCOUNTER 2021-10-29 08:51 | Emergency (ER) | payer MEDICAID, SELFPAY ==
[2021-10-29 08:57] VITALS: BP 118/72; PULSE 73; RESP 16; TEMP 36.4; O2SAT 99
--- NOTE | 2021-10-29 09:15 | DI.RAD_ITS ---
Exam(s) XR PELVIS AP EXAM: XR PELVIS AP CLINICAL HISTORY: fall. TECHNIQUE: 2D digital imaging was performed. FINDINGS: Single view Multiple surgical clips again noted in the upper pelvis-lower abdomen. No evidence of fracture. No obvious degenerative changes in the hips. Sacroiliac joints unremarkable. IMPRESSION: No pelvic fracture identified DATA REPOSITORY: RADIATION DOSE DELIVERED:
[2021-10-29] MEDS: Ketorolac 60 MG/2 ML VIAL IM (09:40)
[2021-10-29] MEDS: Orphenadrine 60 MG/2 ML VIAL IM (09:41)
[2021-10-29 09:51] LABS: Bilirubin Negative (Negative); Blood Negative (Negative); Clarity Clear (Clear); Glucose Negative (Negative); Ketones Negative (Negative); Leukocyte Esterase Negative (Negative); Nitrite Negative (Negative); Specific Gravity 1.015 (1.005-1.025); Urobilinogen 0.2 EU/dL (Up TO 0.2)
--- NOTE | 2021-10-29 10:17 | DI.VRAD_ITS ---
PROCEDURE INFORMATION: Exam: XR Pelvis Exam date and time: 10/29/2021 9:35 AM Age: 36 years old Clinical indication: Other: Fall TECHNIQUE: Imaging protocol: XR pelvis. Views: 1 or 2 view. COMPARISON: CT ABDOMEN PELVIS W 03/12/2019 6:52 AM FINDINGS: Bones/joints: No fractures are identified in the pelvis. Both femoral heads project over the acetabular fossae. The hip joint spaces are maintained. The sacroiliac joints appear normal and symmetric. The pubic symphysis is unremarkable. Soft tissues: Multiple surgical clips project over the lower abdomen and upper pelvis. IMPRESSION: No fracture identified in the pelvis. Dictated and Authenticated by: Sarah Olmos MD. Ordering:DOMINGA Mojica MD
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
== END 2021-10-29 10:50 | disposition home or self-care (01) ==
PROVIDERS: Emergency Provider Physician Assistant; PCP Family Medicine
DX: M54.50 Low back pain, unspecified (principal); R10.30 Lower abdominal pain, unspecified; W08.XXXA Fall from other furniture, initial encounter
CPT/HCPCS: 96372; 99284; J2360; 72170; 81003; 99283; J1885

== ENCOUNTER 2022-01-28 09:01 | Emergency (ER) | payer OTHER, SELFPAY ==
[2022-01-28 09:08] VITALS: BP 111/77; PULSE 75; RESP 16; TEMP 36.5; O2SAT 98
--- NOTE | 2022-01-28 09:15 | DI.RAD_ITS ---
Exam(s) XR TIB/FIB LT EXAM: XR TIB/FIB LT CLINICAL HISTORY: pain. TECHNIQUE: 2D digital imaging was performed COMPARISON: CR XR TIB/FIB LT from 04/21/2021 FINDINGS: BONES: No acute fracture is present. No bony destructive lesion is seen. Visualized portion of knee a nd ankle joints are unremarkable. Spurring at the Achilles insertion on the calcaneus. SOFT TISSUE: Normal. IMPRESSION: No acute abnormality. DATA REPOSITORY: RADIATION DOSE DELIVERED:
[2022-01-28] MEDS: Ibuprofen 600 MG TAB PO (09:50)
--- NOTE | 2022-01-28 09:51 | DI.VRAD_ITS ---
PROCEDURE INFORMATION: Exam: XR Left Tibia and Fibula Exam date and time: 01/28/2022 9:38 AM Age: 36 years old Clinical indication: Other: Pain TECHNIQUE: Imaging protocol: Radiologic exam of the Left tibia and fibula. Views: 2 views. COMPARISON: CR XR TIB/FIB LT 04/21/2021 10:08 AM FINDINGS: Bones/joints: Normal. Soft tissues: Normal. IMPRESSION: No acute findings. Dictated and Authenticated by: Ru Kelly MD. Ordering:ALTHEA Ramey MD
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
== END 2022-01-28 11:01 | disposition home or self-care (01) ==
PROVIDERS: Emergency Provider Student in an Organized Health Care Education/Training Program; PCP Family Medicine
DX: S86.012A Strain of left Achilles tendon, initial encounter (principal); X50.0XXA Overexertion from strenuous movement or load, initial encounter
CPT/HCPCS: 29515; 99283; 73590

== ENCOUNTER 2022-02-19 21:20 | Emergency (ER) | payer MEDICAID, SELFPAY ==
[2022-02-19 21:29] VITALS: BP 120/73; PULSE 74; RESP 16; TEMP 37.1; O2SAT 99
[2022-02-19 21:31] VITALS: BP 120/73; PULSE 71; PULSE 73; RESP 19; O2SAT 99
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
[2022-02-19] MEDS: methylPREDNISolone SUCC 125 MG VIAL IVP (22:14)
[2022-02-19] MEDS: Famotidine 20 MG TAB 40 MG PO (22:14)
[2022-02-19 22:37] VITALS: BP 115/62; PULSE 62; PULSE 67; RESP 18; O2SAT 99
[2022-02-19] MEDS: Hydrocortisone 1% CR 30 GM TUBE TP ×2 (22:40→23:00)
[2022-02-19] MEDS: diphenhydrAMINE 50 MG/ML VIAL 25 MG IVP (23:00)
[2022-02-19 23:30] VITALS: BP 115/62; PULSE 67; RESP 18; TEMP 37.1; O2SAT 99
[2022-02-21 11:45] LABS: Lyme Ab w Rflx to Lyme Confirm Negative (Negative)
[2022-02-23 10:10] LABS: Anaplasma phagocytophilum Negative (Negative); B. miyamotoi PCR Negative (Negative); Babesia divergens/MO-1 Negative (Negative); Babesia duncani Negative (Negative); Babesia microti Negative (Negative); Ehrlichia chaffeensis Negative (Negative); Ehrlichia ewingii/canis Negative (Negative); Ehrlichia muris eauclairensis Negative (Negative)
== END 2022-02-19 23:22 | disposition home or self-care (01) ==
PROVIDERS: Emergency Provider Registered Nurse Emergency; PCP Family Medicine
DX: L50.9 Urticaria, unspecified (principal); Z87.891 Personal history of nicotine dependence
CPT/HCPCS: 87798; 96374; 96375; 99284; 86618; 99283; J1200; J2930

== ENCOUNTER → 2022-03-09 00:29 | Outpatient (CLI) | payer MEDICAID, SELFPAY ==
--- NOTE | 2022-03-09 13:35 | DI.MRI_ITS ---
Exam(s) MR LOWER EXTREMITY LT WO EXAM: MR LOWER EXTREMITY LT WO CLINICAL HISTORY: pain, GASTROCNEMIUS TEAR, S86.119A TECHNIQUE: Multiplanar multisequence MRI was performed without intravenous contrast. The examinatio n extended from just above the knee to the distal leg. The ankle is not included. COMPARISON: No exams were available for comparison FINDINGS: BONES/JOINTS: No fracture or contusion pattern. No bone lesions identified. MUSCULOTENDINOUS STRUCTURES: There is mild edema seen in the medial aspect of the distal medial gastr ocnemius muscle. There is some irregularity of the medial aspect of the muscle in this area and a te ar is suspected. There is edema seen in the soft tissues surrounding the distal muscle including wit hin the fascial space between the muscular compartments. The visualized tendon appears intact. No m uscular fatty atrophy. The visualized muscles in the lower leg otherwise are unremarkable. SOFT TISSUES: There is mild edema in the soft tissues anterior to the tibia. OTHER FINDINGS: None. IMPRESSION: 1. Mild edema seen in the distal and medial aspect of the medial gastrocnemius muscle. There is some irregularity of the muscle medially and distally near the musculotendinous junction which may repres ent a muscle tear. The visualized tendon appears unremarkable. 2. No evidence of bone injury. 3. Nonspecific mild edema in the soft tissues anterior to the tibia. DATA REPOSITORY:
== END ==
PROVIDERS: PCP Family Medicine; Visit Provider Student in an Organized Health Care Education/Training Program
DX: M79.89 Other specified soft tissue disorders (principal); R60.0 Localized edema; M62.89 Other specified disorders of muscle; M79.605 Pain in left leg
CPT/HCPCS: 73718

== ENCOUNTER → 2022-06-12 02:49 | Outpatient (CLI) | payer MEDICAID, SELFPAY ==
--- NOTE | 2022-06-12 07:15 | DI.MRI_ITS ---
Exam(s) MR BRAIN WO EXAM: MR BRAIN WO CLINICAL HISTORY: ?MS; leg paraesthesias,r20.2 TECHNIQUE: Multiplanar multisequence MRI of the brain was performed. COMPARISON: No exams were available for comparison FINDINGS: CEREBRAL PARENCHYMA: There is no evidence of intracranial hemorrhage, mass effect, or shift of midline structures. There are no extra-axial fluid collections. Ventricles are not enlarged or shifted. There is no significant focal signal abnormality in the cerebellar hemispheres nor within the ana, m idbrain, and thalami. There is no abnormal signal abnormality in the periventricular white matter. There is no significant focal signal abnormality evident on diffusion imaging to suggest acute ischem ic event. SWI: No evidence of microhemorrhages. PITUITARY GLAND: No mass nor parasellar abnormality. No obvious abnormality in the cavernous sinuses. FLOW VOIDS: The expected flow void are noted. No evidence of obvious aneurysm nor obvious vascular ma lformation. PARANASAL SINUSES: The visualized paranasal sinuses appear unremarkable. No obvious finding ORBITS: No obvious findings. IMPRESSION: No significant intracranial findings on this noninfused MRI scan of the brain. No evidence of demyelinating disease. DATA REPOSITORY:
--- NOTE | 2022-06-12 07:15 | DI.MRI_ITS ---
Exam(s) MR CERVICAL SPINE WO EXAM: MR CERVICAL SPINE WO CLINICAL HISTORY: ?MS,ltleg paresthesias,r20.2 TECHNIQUE: Multiplanar multisequence MRI of the cervical spine was performed without intravenous con trast. COMPARISON: No exams were available for comparison FINDINGS: CERVICOMEDULLARY JUNCTION: Intact with no evidence of cerebellar tonsillar ectopia. No obvious abnor mality of the odontoid process. No evidence of Chiari 1 malformation. CERVICAL SPINAL CORD: There is no abnormal signal in the cervical spinal cord and no evidence of foca l cord atrophy nor focal cord swelling. OSSEOUS:There are no cervical fractures evident. No significant osseous lesions in the cervical vert ebrae. There is mild straightening of the cervical spine. INDIVIDUAL LEVELS: C2-3: No disc herniation nor central canal stenosis. No foraminal stenosis. No facet arthropathy. C3-4: No disc herniation nor central canal stenosis.No facet arthropathy. No foraminal stenosis. C4-5: There is a central subligamentous disc protrusion which extends posteriorly 2 millimeters and i s approximately 6 millimeters. This indents the anterior thecal sac but not the spinal cord. Canal dimensions are lower normal at this level. There is no foraminal stenosis on either side at this lev el. No significant facet arthropathy.No facet arthropathy. No foraminal stenosis C5-6: Normal disc height and signal. This level also exhibits a central subligamentous small disc pr otrusion extending posteriorly 2 millimeters and approximately 4 millimeters wide, indenting the thec al sac and approaching the spinal cord. Slightly larger than disc protrusion at C4-5. However, cent ral canal dimensions are within normal limits. There is no foraminal stenosis on either side at this level. No facet arthropathy. C6-7: Normal disc height and signal. No disc herniation. No canal stenosis. No foraminal stenosis. C7-T1: No disc herniation nor central canal stenosis. No facet arthropathy.No foraminal stenosis. IMPRESSION: 1. There are small central subligamentous disc protrusions at both C4-5 and C5-6 levels, as described above. There is no prominent central canal stenosis at these levels. No evidence of abnormal signa l within the cervical spinal cord and no evidence of focal cord swelling nor focal cord atrophy. The re is also no evidence of foraminal stenosis. 2. No significant bone lesions. No abnormal marrow signal in the cervical vertebrae. DATA REPOSITORY:
== END ==
PROVIDERS: PCP Family Medicine; Visit Provider Psychiatry & Neurology Neurology
DX: R20.2 Paresthesia of skin (principal); M50.221 Other cervical disc displacement at C4-C5 level; M50.222 Other cervical disc displacement at C5-C6 level
CPT/HCPCS: 70551; 72141

== ENCOUNTER 2022-06-17 20:30 | Emergency (ER) | payer MEDICAID, SELFPAY ==
[2022-06-17 20:35] VITALS: BP 116/69; PULSE 73; RESP 16; TEMP 36.8; O2SAT 99
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
[2022-06-17] MEDS: diazePAM 5 MG TAB PO (21:21)
[2022-06-17] MEDS: Ketorolac 30 MG/ML VIAL IM (21:21)
[2022-06-17] MEDS: Lidocaine 5% Patch 2 PATCH TP (21:43)
[2022-06-17] MEDS: Methocarbamol 750 MG TAB 1500 MG PO (22:45)
[2022-06-17 22:46] VITALS: BP 125/72; PULSE 72; RESP 16; TEMP 36.6; O2SAT 99
== END 2022-06-17 22:47 | disposition home or self-care (01) ==
PROVIDERS: Emergency Provider Physician Assistant; PCP Family Medicine
DX: M54.50 Low back pain, unspecified (principal); M62.830 Muscle spasm of back
CPT/HCPCS: 96372; 99284; 99283; J1885

== ENCOUNTER 2022-07-11 15:40 | Outpatient (REF) | payer MEDICAID, SELFPAY ==
[2022-07-11 14:43] LABS: Abs Immature Grans 0.02 10^3/uL (0.0-0.06); Absolute Basophil Count 0.04 10^3/uL (0.0-0.2); Absolute Lymphocyte Count 2.45 10^3/uL (1.2-3.4); Absolute Monocyte Count 0.71 10^3/uL (0.1-0.8); Absolute Neutrophil Count 5.93 10^3/uL (1.2-6.7); Basophils % 0.4; Eosinophils % 1.1; HCT 39.4 % (36.0-46.0); HGB 12.5 g/dL (11.2-15.7); Immature Grans % 0.2; Lymphocytes % 26.5; MCH 27.7 pg (27.0-33.0); MCHC 31.7 % (32.0-36.0); MCV 87 fL (80-95); MPV 10.7 fL (8.0-11.0); Monocytes % 7.7; Neutrophils % 64.1; Platelet Count 267 10^3/uL (130-400); RBC 4.51 10^6/uL (3.93-5.22); RDW 13.3 % (11.7-14.6); RDW-SD 42.9 fL; WBC 9.25 10^3/uL (4.4-10.8)
[2022-07-11 15:06] LABS: ALT 17 U/L (14-59); AST 16 U/L (15-37); Albumin 3.9 g/dL (3.4-5.0); Alkaline Phosphatase 69 U/L (46-116); Anion Gap 6.7 mmol/L (3-11); BUN 11 mg/dL (7-18); Bilirubin, Total 0.3 mg/dL (0.2-1.0); CO2 27.3 mmol/L (21.0-32.0); CREATININE 0.6 mg/dL (0.55-1.02); Calcium 9.1 mg/dL (8.5-10.1); Chloride 104 mmol/L (98-107); Estimated GFR 118.49 (mL/min/1.73m2); Glucose 85 mg/dL (74-106); Potassium 4.4 mmol/L (3.5-5.1); Sodium 138 mmol/L (136-145); TSH (W/Ref FT4) 0.55 uIU/mL (0.36-3.74)
== END 2022-07-11 15:41 | disposition home or self-care (01) ==
LOC: NCHCN 15:40
PROVIDERS: PCP Family Medicine; Visit Provider Family Medicine
DX: R42 Dizziness and giddiness (principal); R20.2 Paresthesia of skin
CPT/HCPCS: 80053; 84443; 85025

== ENCOUNTER 2022-08-08 06:10 | Day surgery (SDC) | payer MEDICAID, SELFPAY ==
[2022-08-08 06:15] VITALS: BP 110/78; PULSE 78; RESP 18; TEMP 36.5; O2SAT 98
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
[2022-08-08 07:01] VITALS: BMI 39.6
[2022-08-08] MEDS: Lactated Ringers 1,000 ML 80 ML IV (07:02)
[2022-08-08] MEDS: ceFAZolin 2 GM/50 ML BAG IVPB (07:24)
--- NOTE | 2022-08-08 07:28 | W.PM.DSUDISC ---
Date of service: 08/08/22 Time of Service: 07:31 Discharge Plan Disposition Patient Disposition: Home Discharge Details Attending Provider: Shan Greene Primary Care Provider: Kezia Aguirre Home Meds and New Rx's Prescriptions: New acetaminophen 500 mg tablet 500 mg PO Q6H PRN PRN (Reason: pain) Qty: 40 3RF hydrocodone-acetaminophen 5-325 mg tablet 1 tab PO Q6H PRN (Reason: pain) Qty: 7 0RF ibuprofen 600 mg tablet 600 mg PO TID PRN (Reason: pain) Qty: 90 3RF Continued trazodone 150 mg tablet 150 mg PO QHS PRN multivitamin Tablet 1 tab PO DAILY Discontinued ibuprofen 200 mg capsule 600 mg PO Q6H PRN acetaminophen [Tylenol Extra Strength] 500 mg tablet 500 mg PO HS PRN Discharge Instructions Stand Alone Forms: Ramona Raza Tunnel Release Referrals: Shan Greene MD [ [facility] STAFF PHYSICIAN] - Activity:: Elevate Remove Dressings/Wound Care:: 48 hours Shower/Bathe:: 48 hours Diet:: As Tolerated Discharge Orders Discharge Orders: Discharge Order (Routine); Ordered 08/08/22 Ordered By: Shan Greene
[2022-08-08] MEDS: Lidocaine 1% Pres-Free W/EPI 1/200,000 10 ML VIAL (07:36)
[2022-08-08 07:45] VITALS: BP 117/84; PULSE 85; RESP 20; TEMP 36.4; O2SAT 97
[2022-08-08 08:20] VITALS: BP 126/95; PULSE 106; RESP 18; TEMP 36.4; O2SAT 98
--- NOTE | 2022-08-08 08:34 | W.ANESPOSTOP ---
Postoperative Evaluation Date, Time and Location Date Performed: 08/08/22 Time Performed: 08:20 Patient Location: Day Surgery Unit Vital Signs Most Recent Imported Vital Signs: Most Recent Vital Signs Temp Pulse Resp BP Pulse Ox 36.4 C L 106 H 18 126/95 H 98 08/08/22 08:20 08/08/22 08:20 08/08/22 08:20 08/08/22 08:20 08/08/22 08:20 Pain Score Most Recent Pain Score: Most Recent Pain Score Pain Level 0 08/08/22 08:20 Assessment Mental Status: Awake (Alert & Oriented to Patient Baseline) Airway and Respiratory Function: Patent airway with normal (patient baseline) respiratory exam Cardiovascular Function: Hemodynamically Stable Hydration Status: Adequately Hydrated Nausea & Vomiting: No Nausea or Vomiting Pain: Pt. Denies Any Pain Peripheral Nerve Block: Patient did not receive a nerve block
--- NOTE | 2022-08-08 09:03 | ROE_ITS ---
Date of service: 08/08/22 Time of Service: 07:40 Operative Note Operative Note DATE OF PROCEDURE: 08/08/22 PRE-OP DIAGNOSIS: Left Carpal Tunnel Syndrome POST-OP DIAGNOSIS: same PROCEDURE: Left Endoscopic Carpal Tunnel Release SURGEON: Shan Greene ANESTHESIA TYPE: General:No Airway Refer to Anesthesia Record ESTIMATED BLOOD LOSS: 0 PATHOLOGY: none sent TOURNIQUET TIME: 6 COMPLICATIONS: None Patient was transported to: same day Patient's condition: stable Indications: I have seen Tiffanie in clinic for symptoms of carpal tunnel syndrome. The numbness, tingling, and pain limited function. Clinical exam findings with nerve conduction tests confirmed the diagnosis of carpal tunnel syndrome. Nonoperative measures such as bracing, time, activity modifications had been tried but disability and pain persisted. I discussed carpal tunnel release with the patient. I reviewed the risks of the procedure to include, but not limited to, bleeding, infection, pain, stiffness, incomplete release, damage to nerves or vessels, persistent numbness, recurrence. Despite these risks, the patient elected to proceed. Findings: There was tightened carpal tunnel with abundant fat and synovial fluid. This was dilated and released successfully with the endoscopic with increased space within the tunnel. The antebrachial fascia was released proximally freeing the median nerve at the wrist. Procedure Description: Tiffanie was greeted in the preoperative holding area where the correct side was identified and marked. The consent was reviewed with the patient and signed. The history and physical was updated. All questions were answered. She was taken back to the operating room. The patient was placed into the supine position on the operating room table with the left arm on an arm board. A nonsterile tourniquet was placed high onto the arm. All bony prominences were well padded. Prophylactic antibiotics in the form of Cefazolin were administered. The left arm was then prepped with Chloraprep and draped in a sta ndard fashion with stockinette and extremity drape. A timeout to confirm correct identity, side and site, procedure, allergies, anesthesia, and medical concerns was performed. The surgical site was marked in the volar wrist creases in line with the radial border of the fourth ray. This area was anesthetized with approximately 6cc of 1% Lidocaine. The limb was then exsanguinated with an Esmarch. The skin was incised with a 15 blade, approximately 1cm. The skin only was cut and the deeper tissue was dissected bluntly with a tenotomy scissor, avoiding passing nerve and venous structures. The fascia was penetrated and opened bluntly. A two-prong skin hook was placed under this proximal fascial edge. A series of hamate finders were used to identify and dilate the carpal tunnel. Synovial elevator was used to free synovial attachments to the underside of the transverse carpal ligament. My thumb was kept in the palm to roderick the distal extent of the carpal tunnel and correctly position the hand. The Microaire endoscope was inserted without difficulty and without resistance. Excellent visualization showed horizontally running fibers of the transverse carpal ligament (TCL). The distal extent of the TCL was visualized and the end of the scope palpated with the thumb. The blade was elevated and withdrawn from distal to proximal. The TCL was split into two flaps. The endoscope was reinserted to confirm complete release and any remnant ligament was incised. The scope was withdrawn and the proximal aspect of the carpal tunnel was grossly inspected and appeared release with the median nerve visible. The antebrachial fascia at the level of the wrist was then freed from the overlying skin and then the underlying median nerve with blunt dissection. This was transected longitudinally for about 3cm proximal to the wrist incision. The wound was then irrigated with easy flow of irrigant distally and proximally. The incision was closed with a single 4-0 Nylon suture. The wound was dressed with Xeroform, Gauze, Kerlix and Ian. The tourniquet was deflated with the initial dressing and held with some pressure. Blood flow returned easily to all digits with capillary refill less than 2 seconds. The patient tolerated the procedure well and was returned to the Same Day Surgery area in a stable condition suffering no known complication.
== END 2022-08-08 08:28 | disposition home or self-care (01) ==
PROVIDERS: PCP Family Medicine; Visit Provider Student in an Organized Health Care Education/Training Program
PROC: 01N54ZZ Release Median Nerve, Percutaneous Endoscopic Approach (ICD-10-PCS; CPT 29848; principal; 2022-08-08 07:30)
DX: G56.02 Carpal tunnel syndrome, left upper limb (principal)
CPT/HCPCS: 29848; J0690; J1885; J2250; J2405

== ENCOUNTER 2022-08-17 13:38 | Emergency (ER) | payer MEDICAID, SELFPAY ==
[2022-08-17 13:41] VITALS: BP 134/85; PULSE 120; RESP 16; TEMP 37.6; O2SAT 97
[2022-08-17 14:42] LABS: COVID-19 PCR Negative (Negative); Influenza A PCR Negative (Negative); Influenza B PCR Negative (Negative); RSV PCR Negative (Negative)
[2022-08-17 14:43] LABS: Source Nasopharynx
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
[2022-08-17 14:45] LABS: Bilirubin Negative (Negative); Blood Negative (Negative); Clarity Sl Cloudy (Clear); Glucose Negative (Negative); Ketones Negative (Negative); Leukocyte Esterase Negative (Negative); Nitrite Negative (Negative); Urobilinogen 0.2 EU/dL (Up TO 0.2)
[2022-08-17 14:49] VITALS: PULSE 92
== END 2022-08-17 15:37 | disposition home or self-care (01) ==
PROVIDERS: Emergency Provider Physician Assistant; PCP Family Medicine
DX: J02.9 Acute pharyngitis, unspecified (principal); Z20.822 Contact with and (suspected) exposure to COVID-19
CPT/HCPCS: 81025; 87637; 87880; 99282; 81003; 87081

== ENCOUNTER 2023-03-14 14:43 | Emergency (ER) | payer BC, SELFPAY ==
[2023-03-14 14:46] VITALS: BP 130/71; PULSE 85; RESP 18; TEMP 37.3; O2SAT 100
--- NOTE | 2023-03-14 15:00 | DI.CT_ITS ---
Exam(s) CT ABDOMEN PELVIS W EXAM: CT ABDOMEN PELVIS W CLINICAL HISTORY: abd cramping, rectal bleeding. TECHNIQUE: Imaging Protocol: Axial computed tomography images with coronal and sagittal reformatted images were created and reviewed CONTRAST MATERIAL: Intravenous: Omnipaque-350 100cc Oral: None COMPARISON: CT CT ABDOMEN PELVIS W from 03/12/2019 FINDINGS: VISUALIZED LUNG BASES: No nodules nor pleural effusions evident. ABDOMEN: Again noted is evidence of prior bariatric surgery. The vertically orientated Thomas limb is not dilat ed. There is no evidence of obstruction at the distal enteroenterostomy. The lower elwha excluded stomac h is not dilated. There is no ascites nor free air nor abscess. There is no mesenteric swirl sign. No evidence of mesenteric vein thrombosis.. There is also an anterior abdominal wall hernia mesh. No hernia evident at this time. However, ther e is a small fluid collection in the deep subcutaneous level of the umbilicus measuring 1.3 x 1.4 cm. No gas bubbles therein. This has slightly increased in size from 2019. LIVER: There are no focal hepatic lesions evident. No dilated intrahepatic ducts. GALLBLADDER/BILIARY: The gallbladder is again noted be surgically absent. CBD is not dilated. PANCREAS: No evidence of pancreatic mass nor dilatation of the pancreatic duct. SPLEEN: Spleen is not enlarged. No obvious intrasplenic lesions. Splenic and portal veins are paten t. ADRENALS: There are no significant adrenal masses. KIDNEYS:No cysts evident. No solid renal masses. No calculi nor hydronephrosis.. ABDOMINAL AORTA: Abdominal aorta is not enlarged. LYMPH NODES:There is no retroperitoneal nor paraaortic adenopathy. GI: There is no evidence of bowel obstruction, free air, nor abscess. PELVIS: GI: No evidence of appendicitis.No evidence of sigmoid diverticulitis. LYMPH NODES: There is no intrapelvic nor inguinal adenopathy. REPRODUCTIVE: The right ovary which was previously evident an upper right iliac fossa is not seen. P resently there is a structure located above the left side of the urinary bladder which measures 3.3 b y 2.5 cm which is probably left ovary and it appears to contain a corpus luteal cyst. With respect t o the uterus it appears retroflexed. URINARY BLADDER: Distended. No calculi nor masses therein. OSSEOUS: No fractures and no significant osseous lesions. IMPRESSION: 1. Compared to the prior CT scan of March 2019 there is again noted evidence of bariatric surgery. There is no evidence of bowel obstruction, free air, nor abscess. There is also a new anterior abdom inal hernia mesh. There is also a small fluid collection is seen in the deep umbilical subcutaneous region measuring approximately 1 cm x 1 cm. 2. Gallbladder again noted be surgically absent. 3. There is a 3.3 x 2.5 cm structure above the urinary bladder which is probably the left ovary and t his contains an enhancing wall corpus luteal cyst. The right ovary is not identified as a separate s tructure. Uterus appears small or surgically absent. 4. No evidence of appendicitis nor diverticulitis. No free fluid. Called by myself to ER physician RADIATION DOSE DELIVERED: 1,318.46mGy.cm Total DLP DATA REPOSITORY: All CT scans at this facility are submitted to the National Radiology Data Registry (NRDR) Dose Index Registry (DIR) with the [employer] (ACR). RADIATION OPTIMIZATION: All CT scans at this facility use at least one of these dose optimization te chniques: automated exposure control; mA and/or kV adjustment per patient size (includes targeted exa ms where dose is matched to clinical indication); or iterative reconstruction.
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
[2023-03-14] MEDS: Ondansetron 4 MG/2 ML VIAL IVP (15:27)
[2023-03-14 15:32] LABS: Abs Immature Grans 0.03 10^3/uL (0.0-0.06); Absolute Basophil Count 0.04 10^3/uL (0.0-0.2); Absolute Eosinophil Count 0.14 10^3/uL (0.0-0.7); Absolute Lymphocyte Count 3.23 10^3/uL (1.2-3.4); Absolute Monocyte Count 0.64 10^3/uL (0.1-0.8); Basophils % 0.4; Eosinophils % 1.5; HCT 42.5 % (36.0-46.0); HGB 13.7 g/dL (11.2-15.7); Immature Grans % 0.3; Lymphocytes % 34.8; MCH 28.1 pg (27.0-33.0); MCHC 32.2 % (32.0-36.0); MCV 87 fL (80-95); MPV 10.3 fL (8.0-11.0); Monocytes % 6.9; Neutrophils % 56.1; Platelet Count 260 10^3/uL (130-400); RBC 4.87 10^6/uL (3.93-5.22); RDW 14.1 % (11.7-14.6); RDW-SD 45.3 fL; WBC 9.28 10^3/uL (4.4-10.8)
[2023-03-14 15:34] LABS: Bilirubin Negative (Negative); Blood Negative (Negative); Clarity Clear (Clear); Glucose Negative (Negative); Ketones Negative (Negative); Leukocyte Esterase Trace (Negative); Nitrite Negative (Negative); Urobilinogen 0.2 mg/dL (Up to 0.2)
[2023-03-14 15:42] LABS: Epithelial Cells Few HPF (Negative); RBC 0-2 HPF (0-2)
[2023-03-14 15:43] LABS: Bacteria Few HPF (Negative); C & S Indicated? Yes; Casts Negative LPF (Negative); Crystals Negative HPF (Negative); Mucus Negative (Negative)
[2023-03-14 16:01] LABS: ALT 19 U/L (14-59); AST 13 U/L (15-37); Albumin 3.7 g/dL (3.4-5.0); Alkaline Phosphatase 79 U/L (46-116); Anion Gap 7.3 mmol/L (3-11); BUN 8 mg/dL (7-18); Bilirubin, Total 0.2 mg/dL (0.2-1.0); CO2 27.7 mmol/L (21.0-32.0); CREATININE 0.7 mg/dL (0.55-1.02); Calcium 9.4 mg/dL (8.5-10.1); Chloride 104 mmol/L (98-107); Estimated GFR 114.16 (mL/min/1.73m2); Glucose 119 mg/dL (74-106); Lipase 280 U/L (16-77); Magnesium 2.3 mg/dL (1.8-2.4); Potassium 3.9 mmol/L (3.5-5.1); Sodium 139 mmol/L (136-145); Total Protein 7.7 g/dL (6.4-8.2); Troponin I < 50 ng/L (<or=60)
[2023-03-14] MEDS: Normal Saline - Diluent 50 ML VIAL IJ (16:12)
[2023-03-14] MEDS: Omnipaque 350 MG/ML 100 ML BTL IJ (16:12)
[2023-03-14] MEDS: Normal Saline Flush 10 ML SYR IVP (16:15)
== END 2023-03-14 17:33 | disposition home or self-care (01) ==
PROVIDERS: Emergency Provider Emergency Medicine Emergency Medical Services; PCP Family Medicine
DX: R10.31 Right lower quadrant pain (principal); K62.9 Disease of anus and rectum, unspecified
CPT/HCPCS: 36415; 80053; 83690; 96374; 99284; 74177; 81003; 81015; 83735; 84484; 85025; 87086; J2405; J3490

== ENCOUNTER 2023-03-20 12:57 | Outpatient (REF) | payer BC, SELFPAY ==
[2023-03-20 16:06] LABS: Abs Immature Grans 0.02 10^3/uL (0.0-0.06); Absolute Basophil Count 0.04 10^3/uL (0.0-0.2); Absolute Eosinophil Count 0.13 10^3/uL (0.0-0.7); Absolute Lymphocyte Count 3.09 10^3/uL (1.2-3.4); Absolute Monocyte Count 0.67 10^3/uL (0.1-0.8); Basophils % 0.5; Eosinophils % 1.6; HCT 40.4 % (36.0-46.0); Immature Grans % 0.3; Lymphocytes % 38.9; MCH 28.2 pg (27.0-33.0); MCHC 32.2 % (32.0-36.0); MCV 88 fL (80-95); MPV 10.8 fL (8.0-11.0); Monocytes % 8.4; Neutrophils % 50.3; Platelet Count 299 10^3/uL (130-400); RBC 4.61 10^6/uL (3.93-5.22); RDW 13.9 % (11.7-14.6); RDW-SD 44.5 fL; WBC 7.95 10^3/uL (4.4-10.8)
[2023-03-20 16:13] LABS: ALT 17 U/L (14-59); AST 12 U/L (15-37); Albumin 3.7 g/dL (3.4-5.0); Alkaline Phosphatase 81 U/L (46-116); Anion Gap 10.2 mmol/L (3-11); BUN 13 mg/dL (7-18); Bilirubin, Total 0.2 mg/dL (0.2-1.0); CO2 26.8 mmol/L (21.0-32.0); CREATININE 0.6 mg/dL (0.55-1.02); Calcium 9.3 mg/dL (8.5-10.1); Chloride 108 mmol/L (98-107); Estimated GFR 117.75 (mL/min/1.73m2); Glucose 80 mg/dL (74-106); Lipase 49 U/L (16-77); Potassium 4.8 mmol/L (3.5-5.1); Sodium 145 mmol/L (136-145); Total Protein 7.2 g/dL (6.4-8.2)
== END 2023-03-20 12:58 | disposition home or self-care (01) ==
LOC: NCHCN 12:57
PROVIDERS: PCP Family Medicine; Visit Provider Family Medicine
DX: K62.5 Hemorrhage of anus and rectum (principal); R10.31 Right lower quadrant pain
CPT/HCPCS: 80053; 83690; 85025

== ENCOUNTER 2023-08-07 18:09 | Emergency (ER) | payer BC, SELFPAY ==
[2023-08-07 18:13] VITALS: BP 143/86; PULSE 77; RESP 18; TEMP 36.4; O2SAT 99
--- NOTE | 2023-08-07 18:15 | DI.CT_ITS ---
Exam(s) CT ABDOMEN PELVIS W EXAM: CT ABDOMEN PELVIS W CLINICAL HISTORY: RLQ pain, s/p hernia repair. TECHNIQUE: Imaging Protocol: Axial computed tomography images with coronal and sagittal reformatted images were created and reviewed CONTRAST MATERIAL: Intravenous: Omnipaque 350 Contrast volume:100 ml Oral: / no COMPARISON: CT CT ABDOMEN PELVIS W from 03/14/2023 FINDINGS: ABDOMEN and PELVIS: Lung Bases: No acute findings. Liver: Normal density. No measurable mass. Gallbladder and biliary tract: Status post cholecystectomy. No radiodense calculus or dilation. Pancreas: Normal density. No abnormal calcifications or inflammatory process. No evidence of mass. Spleen: Normal. Kidneys: Normal size, contour and axis. No radiodense stones. No obstructive uropathy. No suspicious masses seen. Adrenal glands: No masses seen. Vasculature: Abdominal aorta non-dilated. Soft tissues: Postsurgical changes in the anterior abdominal wall. Small amount of fluid at the umbi licus, 15 millimeter matter.. This is unchanged from prior exam. Bladder: Mild wall thickening. No calculi.No focal mass. Bowel: Suture material at stomach. No obstruction. No bowel wall thickening. Appendix normal. Mil d diverticulosis. No evidence of diverticulitis. Peritoneal cavity: No ascites. No focal collection or mesenteric inflammatory response. Bones: Unremarkable for age. Reproductive organs: Within normal limits. Lymph nodes: Unremarkable. IMPRESSION:: Mild bladder wall thickening could indicate cystitis. Status post ventral hernia repair. Stable tiny fluid collection at the umbilicus, unchanged from doroteo or. RADIATION DOSE DELIVERED: Total DLP DATA REPOSITORY: All CT scans at this facility are submitted to the National Radiology Data Registry (NRDR) Dose Index Registry (DIR) with the [employer] (ACR). RADIATION OPTIMIZATION: All CT scans at this facility use at least one of these dose optimization te chniques: automated exposure control; mA and/or kV adjustment per patient size (includes targeted exa ms where dose is matched to clinical indication); or iterative reconstruction.
[2023-08-07 18:16] VITALS: BP 143/86; PULSE 77
[2023-08-07] MEDS: Ondansetron 4 MG/2 ML VIAL IVP (18:23)
[2023-08-07] MEDS: Normal Saline 1,000 ML 1000 ML IV (18:23)
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
[2023-08-07] MEDS: ACETAMINOPHEN 1,000 MG/100 ML BTL 400 MG IVPB (18:33)
[2023-08-07] MEDS: Ketorolac 15 MG/ML VIAL IVP (18:33)
[2023-08-07 18:42] LABS: Abs Immature Grans 0.02 10^3/uL (0.0-0.06); Absolute Basophil Count 0.05 10^3/uL (0.0-0.2); Absolute Eosinophil Count 0.11 10^3/uL (0.0-0.7); Absolute Lymphocyte Count 3.63 10^3/uL (1.2-3.4); Absolute Monocyte Count 0.56 10^3/uL (0.1-0.8); Absolute Neutrophil Count 4.52 10^3/uL (1.2-6.7); Basophils % 0.6; Eosinophils % 1.2; HCT 39.5 % (36.0-46.0); HGB 12.9 g/dL (11.2-15.7); Immature Grans % 0.2; Lymphocytes % 40.8; MCH 28.1 pg (27.0-33.0); MCHC 32.7 % (32.0-36.0); MCV 86 fL (80-95); MPV 10.5 fL (8.0-11.0); Monocytes % 6.3; Neutrophils % 50.9; Platelet Count 274 10^3/uL (130-400); RBC 4.59 10^6/uL (3.93-5.22); RDW 13.2 % (11.7-14.6); RDW-SD 41.4 fL; WBC 8.89 10^3/uL (4.4-10.8)
[2023-08-07 18:46] LABS: Bilirubin Negative (Negative); Blood Trace-intact (Negative); Clarity Clear (Clear); Glucose Negative (Negative); Ketones Negative (Negative); Leukocyte Esterase Trace (Negative); Nitrite Negative (Negative); Urobilinogen 0.2 mg/dL (Up to 0.2)
[2023-08-07 18:48] LABS: Lipase 46 U/L (16-77)
[2023-08-07 18:49] LABS: Bacteria Few HPF (Negative); C & S Indicated? Yes; Casts Negative LPF (Negative); Crystals Negative HPF (Negative); Epithelial Cells Few HPF (Negative); Mucus Negative (Negative); RBC 0-2 HPF (0-2)
[2023-08-07] MEDS: Omnipaque 350 MG/ML 100 ML BTL IJ (18:49)
[2023-08-07 18:51] LABS: ALT 19 U/L (14-59); AST 13 U/L (15-37); Albumin 3.8 g/dL (3.4-5.0); Alkaline Phosphatase 68 U/L (46-116); Anion Gap 8.6 mmol/L (3-11); BUN 13 mg/dL (7-18); Bilirubin, Total 0.2 mg/dL (0.2-1.0); CO2 25.4 mmol/L (21.0-32.0); CREATININE 0.6 mg/dL (0.55-1.02); Calcium 9.5 mg/dL (8.5-10.1); Chloride 104 mmol/L (98-107); Estimated GFR 117.75 (mL/min/1.73m2); Glucose 137 mg/dL (74-106); Magnesium 1.8 mg/dL (1.8-2.4); Potassium 4.1 mmol/L (3.5-5.1); Sodium 138 mmol/L (136-145); Total Protein 7.5 g/dL (6.4-8.2)
[2023-08-07] MEDS: Normal Saline - Diluent 50 ML VIAL IJ (18:54)
--- NOTE | 2023-08-07 19:42 | DI.VRAD_ITS ---
PROCEDURE INFORMATION: Exam: CT Abdomen And Pelvis With Contrast Exam date and time: 08/07/2023 6:56 PM Age: 38 years old Clinical indication: Abdominal pain; Other: Rlq pain; Prior surgery; Surgery date: <1 month; Surgery type: Hernia repair TECHNIQUE: Imaging protocol: Computed tomography of the abdomen and pelvis with contrast. Radiation optimization: All CT scans at this facility use at least one of these dose optimization techniques: automated exposure control; mA and/or kV adjustment per patient size (includes targeted exams where dose is matched to clinical indication); or iterative reconstruction. Contrast material: OMNIPAQUE 350; Contrast volume: 100 ml; Contrast route: INTRAVENOUS (IV); COMPARISON: CT ABDOMEN PELVIS W 03/14/2023 4:10 PM FINDINGS: Liver: Normal. Gallbladder and bile ducts: Gallbladder surgically absent. Pancreas: Normal. Spleen: Normal. Adrenal glands: Normal. No mass. Kidneys and ureters: Normal. Stomach and bowel: Surgical changes of prior gastric bypass. Colonic diverticulosis. Appendix: No evidence of appendicitis. Intraperitoneal space: Unremarkable. No free air. No significant fluid collection. Vasculature: Phleboliths within the pelvis. Lymph nodes: Unremarkable. No enlarged lymph nodes. Urinary bladder: Mild wall thickening of the urinary bladder, likely secondary to partially decompressed state, although cystitis is a consideration. Reproductive: Unremarkable as visualized. Bones/joints: No acute abnormality. Soft tissues: Surgical changes of prior ventral hernia repair. Small fat and fluid containing ventral hernia, without acute complications. IMPRESSION: Mild wall thickening of the urinary bladder, likely secondary to partially decompressed state, although cystitis is a consideration. Dictated and Authenticated by: Sebas Fox MD. Ordering:TOSHIA Alfonso MD
[2023-08-07 20:27] VITALS: BP 125/91; PULSE 62; RESP 17; TEMP 36.5; O2SAT 99
[2023-08-07] MEDS: Ondansetron O.D.T. 4 MG TABEF, 3 TABS/BTL PO (20:27)
== END 2023-08-07 20:30 | disposition home or self-care (01) ==
PROVIDERS: Emergency Provider Nurse Practitioner Acute Care; PCP Nurse Practitioner Family
DX: K52.9 Noninfective gastroenteritis and colitis, unspecified (principal); Z98.890 Other specified postprocedural states; Z98.84 Bariatric surgery status; Z87.891 Personal history of nicotine dependence
CPT/HCPCS: 36415; 80053; 83690; 87077; 96361; 96374; 96375; 99285; 74177; 81003; 81015; 83735; 85025; 87086; 87186; 99284; J0131; J1885; J2405; J3490

== ENCOUNTER 2023-08-10 14:22 | Emergency (ER) | payer BC, SELFPAY ==
[2023-08-10 14:26] VITALS: BP 156/77; PULSE 108; RESP 18; TEMP 37.1; O2SAT 99
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
[2023-08-10] MEDS: diazePAM 5 MG TAB PO (14:56)
[2023-08-10] MEDS: Ketorolac 10 MG TAB PO (14:56)
[2023-08-10] MEDS: Acetaminophen 500 MG TAB 1000 MG PO (14:57)
[2023-08-10] MEDS: Lidocaine 5% Patch 1 PATCH TP (14:57)
[2023-08-10 15:11] VITALS: BP 126/98; PULSE 94; RESP 22; TEMP 37.3; O2SAT 100
== END 2023-08-10 15:58 | disposition home or self-care (01) ==
PROVIDERS: Emergency Provider Emergency Medicine; PCP Nurse Practitioner Family
DX: M54.31 Sciatica, right side (principal)
CPT/HCPCS: 81025; 99283; 81003

== ENCOUNTER 2023-12-20 15:35 | Outpatient (CLI) | payer BC, SELFPAY ==
[2023-12-20 16:22] LABS: Anion Gap 10.2 mmol/L (3-11); BUN 8 mg/dL (7-18); CO2 25.8 mmol/L (21.0-32.0); CREATININE 0.7 mg/dL (0.55-1.02); Calcium 8.8 mg/dL (8.5-10.1); Chloride 106 mmol/L (98-107); Estimated GFR 113.46 (mL/min/1.73m2); Glucose 116 mg/dL (74-106); Potassium 4.1 mmol/L (3.5-5.1); Sodium 142 mmol/L (136-145)
== END 2023-12-20 15:36 | disposition home or self-care (01) ==
LOC: LBO 15:36
PROVIDERS: PCP Nurse Practitioner Family; Visit Provider Family Medicine
DX: E66.9 Obesity, unspecified (principal); Z68.39 Body mass index [BMI] 39.0-39.9, adult
CPT/HCPCS: 36415; 80048

== ENCOUNTER 2024-01-31 20:08 | Emergency (ER) | payer BC, SELFPAY ==
[2024-01-31 20:24] VITALS: BP 111/76; PULSE 78; RESP 16; TEMP 36.2
--- NOTE | 2024-01-31 20:30 | DI.RAD_ITS ---
Exam(s) XR WRIST RT COMPLETE EXAM: XR WRIST RT COMPLETE CLINICAL HISTORY: R wrist pain. TECHNIQUE: 2D digital imaging was performed. Three views. COMPARISON: CR XR hand RT complete from 11/09/2018 FINDINGS: BONES: No acute fracture is present. No bony destructive lesion is seen. JOINTS: The carpal bones are normally aligned. SOFT TISSUE: Normal. IMPRESSION: Unremarkable radiographs of the right wrist. DATA REPOSITORY: RADIATION DOSE DELIVERED:
[2024-01-31] MEDS: Acetaminophen 325 MG TAB 650 MG PO (21:34)
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
--- NOTE | 2024-01-31 22:33 | DI.VRAD_ITS ---
PROCEDURE INFORMATION: Exam: XR Right Wrist Exam date and time: 01/31/2024 8:59 PM Age: 38 years old Clinical indication: Right wrist pain TECHNIQUE: Imaging protocol: Radiologic exam of the right wrist. Views: 3 or more views. COMPARISON: CR XR wrist RT complete 11/09/2018 8:59 AM FINDINGS: Bones/joints: No acute fracture. No dislocation. No joint space narrowing. Soft tissues: No soft tissue radiopaque foreign body. IMPRESSION: No acute findings. Dictated and Authenticated by: Jony Adames MD. Ordering:ROGER Hess MD
[2024-01-31 23:08] VITALS: BP 123/74; PULSE 65; RESP 21; O2SAT 99
--- NOTE | 2024-02-01 12:39 | NUR.NOTE ---
Accessed chart to get billing information for [facility]. Nursing Note:
== END 2024-01-31 23:08 | disposition home or self-care (01) ==
PROVIDERS: Emergency Provider Nurse Practitioner Family; PCP Nurse Practitioner Family
DX: S63.501A Unspecified sprain of right wrist, initial encounter (principal); Z87.891 Personal history of nicotine dependence; X50.9XXA Other and unspecified overexertion or strenuous movements or postures, initial encounter; Y93.E9 Activity, other interior property and clothing maintenance; Y92.013 Bedroom of single-family (private) house as the place of occurrence of the external cause
CPT/HCPCS: 99283; 73110

== ENCOUNTER 2024-02-11 17:31 | Outpatient (REF) | payer BC, SELFPAY ==
[2024-02-11 22:02] LABS: Hemoglobin A1C 5.5 % (<5.7)
[2024-02-12 19:10] LABS: FSH 2.9 mIU/mL (See Note); Prolactin 6.9 ng/mL (See Note)
[2024-02-17 13:23] LABS: Estrone 52 pg/mL
== END 2024-02-11 17:32 | disposition home or self-care (01) ==
LOC: NCHCN 17:31
PROVIDERS: PCP Nurse Practitioner Family; Visit Provider Nurse Practitioner Family
DX: N94.10 Unspecified dyspareunia (principal); E66.9 Obesity, unspecified
CPT/HCPCS: 82679; 83001; 83036; 84146; 84443

== ENCOUNTER 2024-02-12 07:54 | Outpatient (REF) | payer BC, SELFPAY ==
--- NOTE | 2024-02-11 11:45 | PAPFT_PTH ---
PATIENT: Tiffanie Monreal LOC: NCN #:[id number] AGE/SX: 38/F ROOM: RE02/12/[address]: Saumya Felipe : 1985 BED: DIS: 02/12/2024 SPEC #: [id number] RECD: 02/12/24 13:17 STATUS: GONZALEZ LINDO #: [id number] ADAN: 02/11/24 11:[address]: Saumya Felipe DEPT: PENDING SALE TO [facility] Cytology RECD BY: Sobia Campbell Tissues: 1 - CX/ENDOCX FOR PAP SMEARS Procedures: PAP THIN PREP/[facility] Screening HPV DNA PROBE Comments: [id number] (HPV 16 & 18/45)
== END 2024-02-12 07:55 | disposition home or self-care (01) ==
LOC: NCHCN 07:54
PROVIDERS: PCP Nurse Practitioner Family; Visit Provider Nurse Practitioner Family
DX: Z12.4 Encounter for screening for malignant neoplasm of cervix (principal); Z01.419 Encounter for gynecological examination (general) (routine) without abnormal findings; Z00.00 Encounter for general adult medical examination without abnormal findings
CPT/HCPCS: 88142; 87624

== ENCOUNTER 2024-04-20 11:34 | Outpatient (CLI) | payer BC, SELFPAY ==
--- NOTE | 2024-04-20 09:15 | DI.RAD_ITS ---
Exam(s) XR WRIST RT LIMITED EXAM: XR WRIST RT LIMITED CLINICAL HISTORY: right wrist pain. TECHNIQUE: 2D digital imaging was performed. pisiform view only. COMPARISON: CR XR wrist RT complete from 11/09/2018 CR,XR XR WRIST RT COMPLETE from 01/31/2024 FINDINGS: BONES: No acute fracture is present. No bony destructive lesion is seen. JOINTS: The carpal bones are normally aligned. SOFT TISSUE: Normal. IMPRESSION: Unremarkable pisiform view. DATA REPOSITORY: RADIATION DOSE DELIVERED:
== END 2024-04-20 11:35 | disposition home or self-care (01) ==
LOC: DIORS 11:34
PROVIDERS: PCP Nurse Practitioner Family; Visit Provider Physician Assistant
DX: M25.531 Pain in right wrist (principal)
CPT/HCPCS: 73100

== ENCOUNTER 2024-05-01 07:38 | Emergency (ER) | payer BC, SELFPAY ==
[2024-05-01] VITALS (10 sets, daily range): BP systolic 94–130; BP diastolic 52–72; PULSE 85–123; RESP 16–20; TEMP 36.7–39.3; O2SAT 94–98
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
[2024-05-01 08:22] LABS: Abs Immature Grans 0.04 10^3/uL (0.0-0.06); Absolute Lymphocyte Count 0.74 10^3/uL (1.2-3.4); Absolute Neutrophil Count 9.43 10^3/uL (1.2-6.7); Basophils % 0.3 %; HCT 40.5 % (36.0-46.0); HGB 13.2 g/dL (11.2-15.7); Immature Grans % 0.3 %; Lymphocytes % 6.5 %; MCH 28.3 pg (27.0-33.0); MCHC 32.6 % (32.0-36.0); MCV 87 fL (80-95); MPV 10.1 fL (8.0-11.0); Monocytes % 10.5 %; Neutrophils % 82.4 %; Platelet Count 202 10^3/uL (130-400); RBC 4.66 10^6/uL (3.93-5.22); RDW 13.2 % (11.7-14.6); RDW-SD 41.6 fL; WBC 11.45 10^3/uL (4.4-10.8)
[2024-05-01] MEDS: Ondansetron 4 MG/2 ML VIAL IVP (08:22)
[2024-05-01] MEDS: Ketorolac 15 MG/ML VIAL IVP (08:22)
[2024-05-01 08:23] LABS: Absolute Basophil Count 0.03 10^3/uL (0.0-0.2); Lactate 1.8 mmol/L (0.6-1.4)
[2024-05-01] MEDS: ACETAMINOPHEN 1,000 MG/100 ML BTL 400 MG IVPB (08:23)
[2024-05-01] MEDS: Normal Saline 1,000 ML 1000 ML IV ×2 (08:24→09:36)
[2024-05-01 08:46] LABS: ALT 19 U/L (14-59); AST 16 U/L (15-37); Albumin 3.3 g/dL (3.4-5.0); Alkaline Phosphatase 75 U/L (46-116); Anion Gap 9.7 mmol/L (3-11); BUN 10 mg/dL (7-18); CO2 24.3 mmol/L (21.0-32.0); CREATININE 0.8 mg/dL (0.55-1.02); Calcium 8.9 mg/dL (8.5-10.1); Chloride 102 mmol/L (98-107); Estimated GFR 96.06 (mL/min/1.73m2); Glucose 132 mg/dL (74-106); Lipase 45 U/L (16-77); Potassium 3.7 mmol/L (3.5-5.1); Sodium 136 mmol/L (136-145); Total Protein 7.3 g/dL (6.4-8.2)
[2024-05-01 09:01] LABS: COVID-19 PCR Negative (Negative); Influenza A PCR Negative (Negative); Influenza B PCR Negative (Negative); RSV PCR Negative (Negative)
[2024-05-01 09:05] LABS: Source Nasopharynx
[2024-05-01 09:08] LABS: Procalcitonin 0.1 ng/mL
[2024-05-01 10:34] LABS: Bilirubin Negative (Negative); Blood Negative (Negative); Clarity Clear (Clear); Glucose Negative (Negative); Ketones Negative (Negative); Leukocyte Esterase Small (Negative); Nitrite Negative (Negative); Specific Gravity <= 1.005 (1.005-1.025); Urobilinogen 0.2 mg/dL (Up to 0.2)
[2024-05-01 10:39] LABS: Bacteria Few HPF (Negative); C & S Indicated? No; Crystals Negative HPF (Negative); Epithelial Cells Rare HPF (Negative); Mucus Negative (Negative); RBC 0-2 HPF (0-2)
== END 2024-05-01 11:35 | disposition home or self-care (01) ==
PROVIDERS: Emergency Provider Physician Assistant; PCP Nurse Practitioner Family
DX: B34.9 Viral infection, unspecified (principal); Z98.84 Bariatric surgery status; Z87.891 Personal history of nicotine dependence
CPT/HCPCS: 80053; 83690; 84145; 87077; 87637; 96365; 96375; 99284; 81003; 81015; 83605; 83735; 85025; 87086; 87186; 99283; J0131; J1885; J2405

== ENCOUNTER 2024-05-12 05:59 | Day surgery (SDC) | payer BC, SELFPAY ==
[2024-05-12 06:08] VITALS: BP 113/84; PULSE 78; RESP 16; TEMP 36.4; O2SAT 98
[2024-05-12] MEDS: Lactated Ringers 1,000 ML 80 ML IV (06:50)
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
[2024-05-12 07:03] VITALS: BMI 35.9
[2024-05-12] MEDS: ceFAZolin 2 GM/50 ML BAG IVPB (07:23)
--- NOTE | 2024-05-12 07:27 | PDOC.DSDIS_ITS ---
Date of service: 05/12/24 Time of Service: 07:31 Discharge Plan Disposition Patient Disposition: Home Condition: Good Discharge Details Reason For Visit: Right carpal tunnel syndrome Attending Provider: Shan Greene Primary Care Provider: Saumya Felipe Home Meds and New Rx's Prescriptions: New acetaminophen 500 mg tablet 500 mg PO Q6H PRN (Reason: pain) Qty: 60 2RF hydrocodone-acetaminophen 5-325 mg tablet 1 tab PO Q6H PRN (Reason: severe pain) Qty: 4 0RF Rx Instructions: Take one tablet up to every 6 hours as needed for severe postoperative pain ibuprofen 600 mg tablet 600 mg PO TID PRN (Reason: pain) Qty: 60 0RF Continued trazodone 150 mg tablet 150 mg PO QHS PRN multivitamin Tablet 1 tab PO DAILY gabapentin 100 mg capsule 100 mg PO 2XD PRN ferrous sulfate [FeroSul] 325 mg (65 mg iron) tablet 325 mg PO DAILY calcium 250 mg tablet 500 mg PO DAILY Discontinued acetaminophen 500 mg tablet 500 mg PO Q6H PRN PRN (Reason: pain) Qty: 40 3RF ibuprofen 600 mg tablet 600 mg PO TID PRN (Reason: pain) Qty: 90 3RF Discharge Instructions Stand Alone Forms: Anesthesia Discharge Inst., Ramona Raza [place] Iesha, Julio Andrews ([facility]) Referrals: Shan Greene MD [ [facility] STAFF PHYSICIAN] - 05/22/24 9:45 am Activity:: Elevate Remove Dressings/Wound Care:: 48 hours Shower/Bathe:: 48 hours Diet:: As Tolerated Discharge Orders Discharge Orders: Discharge Order (Routine); Ordered 05/12/24 Ordered By: Belem Lopez
[2024-05-12] MEDS: Lidocaine 1% Pres-Free W/EPI 1/200,000 10 ML VIAL (07:32)
[2024-05-12 07:42] VITALS: BP 111/62; PULSE 70; RESP 22; TEMP 36.4; O2SAT 94
--- NOTE | 2024-05-12 07:45 | W.ANESPOSTOP ---
Postoperative Evaluation Date, Time and Location Date Performed: 05/12/24 Time Performed: 07:45 Patient Location: Day Surgery Unit Vital Signs Most Recent Imported Vital Signs: Most Recent Vital Signs Temp Pulse Resp BP Pulse Ox 36.4 C L 78 16 113/84 98 05/12/24 06:08 05/12/24 06:08 05/12/24 06:08 05/12/24 06:08 05/12/24 06:08 Pain Score Most Recent Pain Score: Most Recent Pain Score Pain Level 0 05/12/24 06:08 Assessment Mental Status: Awake (Alert & Oriented to Patient Baseline) Airway and Respiratory Function: Patent airway with normal (patient baseline) respiratory exam Cardiovascular Function: Hemodynamically Stable Hydration Status: Adequately Hydrated Nausea & Vomiting: No Nausea or Vomiting Pain: Pt. Denies Any Pain Peripheral Nerve Block: Patient did not receive a nerve block
[2024-05-12 08:04] VITALS: BP 109/65; PULSE 72; RESP 18; TEMP 36.2; O2SAT 97
--- NOTE | 2024-05-12 09:10 | W.PM.OP ---
Date of service: 05/12/24 Time of Service: 07:30 Operative Note Operative Note DATE OF PROCEDURE: 05/12/24 PRE-OP DIAGNOSIS: Right Carpal Tunnel Syndrome POST-OP DIAGNOSIS: same PROCEDURE: Right Endoscopic Carpal Tunnel Release SURGEON: Shan Greene ANESTHESIA TYPE: General:No Airway Refer to Anesthesia Record ESTIMATED BLOOD LOSS: 0 PATHOLOGY: none sent TOURNIQUET TIME: 5 COMPLICATIONS: None Patient was transported to: same day Patient's condition: stable Indications: I have seen Tiffanie in clinic for symptoms of carpal tunnel syndrome. The numbness, tingling, and pain limited function. Clinical exam findings confirmed the diagnosis of carpal tunnel syndrome. Nonoperative measures such as bracing, time, activity modifications had been tried but disability and pain persisted. I discussed carpal tunnel release with the patient. I reviewed the risks of the procedure to include, but not limited to, bleeding, infection, pain, stiffness, incomplete release, damage to nerves or vessels, persistent numbness, recurrence. Despite these risks, the patient elected to proceed. Findings: There was tightened carpal tunnel. This was dilated and released successfully with the endoscopic with increased space within the tunnel. The antebrachial fascia was released proximally freeing the median nerve at the wrist. Procedure Description: Tiffanie was greeted in the preoperative holding area where the correct side was identified and marked. The consent was reviewed with the patient and signed. The history and physical was updated. All questions were answered. She was taken back to the operating room. The patient was placed into the supine position on the operating room table with the right arm on an arm board. A nonsterile tourniquet was placed high onto the arm. All bony prominences were well padded. Prophylactic antibiotics in the form of Cefazolin were administered. The right arm was then prepped with Chloraprep and draped in a standard fashion with stockinette and extremity drape. A timeout to confirm correct identity, side and site, procedure, allergies, anesthesia, and medical concerns was performed. The surgical site was marked in the volar wrist creases in line with the radial border of the fourth ray. This area was anesthetized with approximately 6cc of 1% Lidocaine. The limb was then exsanguinated with an Esmarch. The skin was incised with a 15 blade, approximately 1cm. The skin only was cut and the deeper tissue was dissected bluntly with a tenotomy scissor, avoiding passing nerve and venous structures. The fascia was penetrated and opened bluntly. A two-prong skin hook was placed under this proximal fascial edge. A series of hamate finders were used to identify and dilate the carpal tunnel. Synovial elevator was used to free synovial attachments to the underside of the transverse carpal ligament. My thumb was kept in the palm to roderick the distal extent of the carpal tunnel and correctly position the hand. The Microaire endoscope was inserted without difficulty and without resistance. Excellent visualization showed horizontally running fibers of the transverse carpal ligament (TCL). The distal extent of the TCL was visualized and the end of the scope palpated with the thumb. The blade was elevated and withdrawn from distal to proximal. The TCL was split into two flaps. The endoscope was reinserted to confirm complete release and any remnant ligament was incised. The scope was withdrawn and the proximal aspect of the carpal tunnel was grossly inspected and appeared release with the median nerve visible. The antebrachial fascia at the level of the wrist was then freed from the overlying skin and then the underlying median nerve with blunt dissection. This was transected longitudinally for about 3cm proximal to the wrist incision. The wound was then irrigated with easy flow of irrigant distally and proximally. The incision was closed with a single 4-0 Nylon suture. The wound was dressed with Xeroform, Gauze, Kerlix and Ian. The tourniquet was deflated with the initial dressing and held with some pressure. Blood flow returned easily to all digits with capillary refill less than 2 seconds. The patient tolerated the procedure well and was returned to the Same Day Surgery area in a stable condition suffering no known complication.
== END 2024-05-12 08:38 | disposition home or self-care (01) ==
PROVIDERS: PCP Nurse Practitioner Family; Visit Provider Student in an Organized Health Care Education/Training Program
PROC: 01N54ZZ Release Median Nerve, Percutaneous Endoscopic Approach (ICD-10-PCS; CPT 29848; principal; 2024-05-12 07:30)
DX: G56.01 Carpal tunnel syndrome, right upper limb (principal)
CPT/HCPCS: 29848; J0690; J1100; J1885; J2004; J2405; J2704

== ENCOUNTER 2024-05-25 14:36 | Emergency (ER) | payer BC, SELFPAY ==
[2024-05-25 14:38] VITALS: BP 115/74; PULSE 98; RESP 15; TEMP 36.7; O2SAT 98
[2024-05-25 14:42] VITALS: BP 115/74; PULSE 98; RESP 15; TEMP 36.7; O2SAT 98
--- OUTSIDE RECORDS SUMMARY | 2024-05-25 14:48 | XMS_ITS | Referral Summary ---
Author Organization [facility] Address [address] [place] [address] Care Team Providers Care Can Reconditioner Name Role Phone Yovana Trevizo Primary Care Provider [phone] Social History Tobacco Use Types Packs/Day Years Used Date Smoking Tobacco: Never Assessed Interpersonal Safety Answer Date Record ed Physically Hurt Never 03/13/2020 Verbally Threaten Not on file 03/13/2020 Sex and Gender Information Value Date Recorded Sex Assigned at Not on file Gender Identity Not on file Sexual Orientation Not on file Plan of Treatment Not on file Care Teams Can Reconditioner Relationship Specialty Start Date End Date Yovana Trevizo FNP [address] [place] [address] PCP - General 06/01/13
--- OUTSIDE RECORDS SUMMARY | 2024-05-25 14:48 | XMS_ITS | Encounter Summary ---
Author Organization [facility] Address [address] [place] [address] Care Team Providers Care Hockey Instructor Name Role Phone Yovana Trevizo Primary Care Provider [phone] Encounter Details Date Type Department Care Team (Latest Contact Info) Description 05/22/2017 16:40 EDT - 05/22/2017 23:59 EDT Hospital Encounter [address] [address] Unknown, Provider, Discharge Disposition: Home or Self Care Social History Tobacco Use Types Packs/Day Years Used Date Smoking Tobacco: Never Assessed Sex and Gender Information Value Date Recorded Sex Assigned at Not on file Gender Identity Not on file Sexual Orientation Not on file documented as of this encounter Discharge Disposition Disposition Code Departure Means Destination Home or Self Senior Living documented in this encounter Plan of Treatment Not on file documented as of this encounter Visit Diagnoses Not on filedocumented in this encounter Care Teams Hockey Instructor Relationship Specialty Start Date End Date Yovana Trevizo FNP [address] [place] [address] PCP - General 06/01/13 documented as of this encounter
--- OUTSIDE RECORDS SUMMARY | 2024-05-25 14:48 | XMS_ITS | Encounter Summary ---
Author Organization [facility] Address [address] [place] [address] Care Team Providers Care [employer] Social Worker Name Role Phone Unavailable Primary Care Provider Unavailabl e Encounter Details Date Type Department Care Team (Latest Contact Info) Description 03/17/2007 20:06 EDT Hospital Encounter [facility] - Other [address] [place] [address] [address] [place], [place] [id number] Discharge Disposition: Home or Self Care Social History Tobacco Use Types Packs/Day Years Used Date Smoking Tobacco: Never Assessed Sex and Gender Information Value Date Recorded Sex Assigned at Not on file Gender Identity Not on file Sexual Orientation Not on file documented as of this encounter Discharge Disposition Disposition Code Departure Means Destination Home or Self Care documented in this encounter Plan of Treatment Not on file documented as of this encounter Visit Diagnoses Not on filedocumented in this encounter
--- OUTSIDE RECORDS SUMMARY | 2024-05-25 14:48 | XMS_ITS | Encounter Summary ---
Author Organization [facility] Address [address] [place] [address] Care Team Providers Care Solar Process Engineer Name Role Phone Yovana Trevizo ANNALEE Primary Care Provider [phone] Encounter Details Date Type Department Care Team (Late st Contact Info) Description 01/07/2018 Results Only [facility] [phone] Ja Aguirre MD [address] [place] [phone] Social History Tobacco Use Types Packs/Day Years Used Date Smoking Tobacco: Never Assessed Sex and Gender Information Value Date Recorded Sex Assigned at Not on file Gender Identity Not on file Sexual Orientation Not on file documented as of this encounter Plan of Treatment Not on file documented as of this encounter Procedures Procedure Name Priority Date/Time Associated Diagnosis Comments PAP TEST- RESULT ONLY Routine 01/07/2018 0:00 EDT documented in this encounter Results * PAP TEST- RESULT ONLY (01/07/2018 0:00 EDT) Pathology Report: CYTOPATHOLOGY REPORT Reports generated via electronic interface contain original data; however they are lacking the format of the original report. Caution should be taken when reading/interpreti ng unformatted reports. Name: ? TIFFANIE MONREAL ? Accession #: ? [id number] ? : ? 1985 (Age: 32) ??F ?Collect Date: ? 01/07/2018 ? Location: ? [facility] ? Receive Date: ? 01/08/2018 ? Provider: JA AGUIRRE MD Copy to: ? Final Report SPECIMEN ADEQUACY ? Satisfactory for Evaluation - assessment of transformation zone component not applicable ( e.g. atrophy, vaginal sample, hysterectomy) GENERAL CATEGORIZATION ? Negative for Intraepithelial Lesion or Malignancy ?? Last Menstrual Period: 2017 Treatment History: Hysterectomy: s/p Specimen/Source: ??Pap Test, Vagina, ThinPrep Imaging System with manual evaluation Document reviewed and electronically signed by: ? Norris Kent, [place](ASCP) ? Report ??Date: 01/14/2018 12:47 HPV with Pap Test ? Date Ordered: ? 01/14/2018 ? Status: ?? Signed Out ?Date Complete: ? 01/15/2018 ? By: ??System Interface ? Date Reported: ? 01/15/2018 ? Interpretation RESULT: High risk HPV testing is only FDA approved and validated for cervical or endocervical samples at the [facility]. It is not validated for vaginal samples as the test performance characteristics have not been evaluated. Credit issued. Sample has been sent to [facility] for HPV testing. Comments Document reviewed and electronically signed by: ? System Interface ? Report date: 01/15/2018 By the signature above, the attending physician certifies that he/she has personally conducted a gross and/or microscopic examination of the described specimens and rendered or confirmed the above diagnosis. End of Report [facility] 01/07/2018 01/08/2018 Ja Aguirre MD PATHOLOGY ORDERABLES [facility] [address] [place] [address] documented in this encounter Visit Diagnoses Not on filedocumented in this encounter Care Teams Solar Process Engineer Relationship Specialty Start Date End Date Yovana Trevizo FNP [address] [place] [address] PCP - General 06/01/13 documented as of this encounter
--- OUTSIDE RECORDS SUMMARY | 2024-05-25 14:48 | XMS_ITS | Encounter Summary ---
Author Organization [facility] Address [facility] [place] [address] Care Team Providers Care Sash Sticker Name Role Phone Saumya Felipe APRN Primary Care Provider [phone] Reason for Visit * Reason Onset Date Comments Medication Refill 05/20/2024 Encounter Details Date Type Department Care Team (Late st Contact Info) Description 05/20/2024 Refill [facility] [place] [phone] Jenni Brennan MD [facility] [address] [facility] [place] [address] Class 2 obesity with body mass index (BMI) of 36.0 to 36.9 in adult, unspecified obesity type, unspecified whether serious comorbidity present Social History Tobacco Use Types Packs/Day Years Used Date Smoking Tobacco: Former Cigarettes 0.5 2 0 03/27/2006 - 03/27/2008 Smokeless Tobacco: Never Alcohol Use Standard Drinks/Week Comments Yes 0 (1 standard drink = 0.6 oz pur e alcohol) once per month [facility] Inpatient Questions Answer Date Recorded Does Anyone Try to Keep You From Having Contact with Others or Doing Things Outside Your Home? no 05/03/2024 Feels Threatened by Someone no 04/13 Feels Unsafe at Home or Work/School no 05/03/2024 Physical Signs of Abuse Present no 05/03/2024 Sex and Gender Information Value Date Recorded Sex Assigned at Not on file Gender Identity Not on file Sexual Orientation Not on file documented as of this encounter Plan of Treatment Upcoming Encounters Date Type Department Care Team (Late st Contact Info) Description 06/02/2024 8:00 AM EDT Office Visit Gastroenterology at [place] [phone] Julienne Lacey APRN [facility] [place] [address] 07/24/2024 1:30 PM EST Office Visit Weight and Wellness at [place] [phone] Jenni Brennan MD [facility] [address] [facility] [place] [address] documented as of this encounter Goals Goal Patient Goal Type Associated Problems Recent Progress Patient-Stated? Author Nutrition Exercise No Kamilla Marlow, TALHA Note: -Continue with adequate fiber intake (25 grams per day) and protein intake (60- 80 grams per day) documented as of this encounter Visit Diagnoses Diagnosis Class 2 obesity with body mass index (BMI) of 36.0 to 36.9 in adult, unspecified obesity type, unspecified whether serious comorbidity present documented in this encounter Care Teams Sash Sticker Relationship Specialty Start Date End Date Saumya Felipe APRN [address] [place] [address] PCP - General Family Medicine 12/31/22 documented as of this encounter
--- OUTSIDE RECORDS SUMMARY | 2024-05-25 14:48 | XMS_ITS | Encounter Summary ---
Author Organization [facility] Address [address] [place] [address] Care Team Providers Care Coconut Cooker Name Role Phone Yovana Trevizo ANNALEE Primary Care Provider Encounter Details Date Type Department Care Team (Late st Contact Info) Description 02/20/2022 Lab Requisition [facility] Pathology & Laboratory Medicine - [address] [id number] Outr Resulting Lab, Provider Social History Tobacco Use Types Packs/Day Years [...] Procedure Name Priority Date/Time Associated Diagnosis Comments LYME AB Routine 02/19/2022 22:53 EDT documented in this encounter Results * LYME AB (02/19/2022 22:53 EDT) Lyme Ab Negative Negative 02/21/2022 11:40 EDT [facility] Blood VENOUS BLOOD / Unknown 02/19/2022 22:53 EDT 02/20/2022 16:46 EDT Provider Outr Resulting Lab IMMUNOLOGY A ND SEROLOGY ORDERABLES [facility] [address] [place] [address] documented in this encounter Visit Diagnoses Not on filedocumented in this encounter Care Teams Coconut Cooker Relationship Specialty Start Date End Date Yovana Trevizo FNP [address] [place], [place] [phone] PCP - General 06/01/13 documented as of this encounter
--- OUTSIDE RECORDS SUMMARY | 2024-05-25 14:48 | XMS_ITS | Encounter Summary ---
Author Organization [facility] Address [address] [place] [address] Care Team Providers Care Etl Bi Developer Name Role Phone Yovana Trevizo MANAGER CONFIGURATION Primary Care Provider [phone] Encounter Details Date Type Department Care Team (Late st Contact Info) Description 05/22/2017 Results Only [facility] [phone] Jose Beck MD [address] [place] [address] Social History Tobacco Use Types Packs/Day Years Used Date Smoking Tobacco: Never Assessed Sex and Gender Information Value Date Recorded Sex Assigned at Not on file Gender Identity Not on file Sexual Orientation Not on file documented as of this encounter Plan of Treatment Not on file documented as of this encounter Procedures Procedure Name Priority Date/Time Associated Diagnosis Comments SURGICAL PATHOLOGY Routine 05/22/2017 9:41 EDT documented in this encounter Results * SURGICAL PATHOLOGY (05/22/2017 9:41 EDT) Pathology Report: SURGICAL PATHOLOGY REPORT Reports generated via electronic interface contain original data; however they are lacking the format of the original report. Caution should be taken when reading/interpret ing unformatted reports. Name: ? TIFFANIE MONREAL ? Accession #: ? [id number] ? : ? 1985 (Age: 32) ??F ? Collect Date: ? 05/22/2017 ? Location: ? [facility] ? Receive Date: ? 05/22/2017 ? Provider: JOSE BECK MD Copy to: LENA HANNON MD ? Final Pathologic Diagnosis: A. UTERUS, RIGHT FALLOPIAN TUBE, SUPRACERVICAL HYSTERECTOMY WITH SALPINGECTOMY: - Endometrium: ? - Proliferative endometrium. - Myometrium: ? - No pathologic features. - Serosa: ? - No pathologic features. - Fallopian tube: ? - No pathologic features. B. FALLOPIAN TUBE, LEFT, SALPINGECTOMY: - No pathologic features. Document reviewed and electronically signed by: WEN ZHOU MD Report ??Date: 05/24/2017 14:35 By the signature above, the attending physician certifies that he/she has personally conducted a gross and/or microscopic examination of the described specimens and rendered or confirmed the above diagnosis. Specimen(s) Received: A. ??Uterus and right fallopian tube B. ??Left fallopian tube Clinical History: Pelvic pain; PCOS; L/S supracervical hyst with bilateral risk reducing salpingectomy Gross Description: A. ?Received in formalin labelled with proper patient identification (initials S, M) and uterus and right fallopian tube is a fragmented uterus (46 g, 8.7 x 7.6 x 2.2 cm) with a detached fimbriated fallopian tube (5.0 cm in length x 0.5 cm). ? The serosa is sanders-pink, smooth, and dull. No definitive cervix is identified. The endometrium is sanders-pink and granular, with an average thickness of 0.1 cm. The myometrium is sanders-pink and trabeculated, with no masses or lesions identified. ? The fallopian tube has werner-purple hyperemic serosa. Electrical Manufacturing Technician sections are submitted as follows: BLOCK HERNÁNDEZ A1- ??endometrium A2-A4- ??myometrium A5- ??longitudinally bisected fimbria and two cross sections B. ?Received in formalin labelled with proper patient identification (initials S, M) and left fallopian tube is a fimbriated fallopian tube (3.5 cm in length x 0.5 cm in diameter). The serosa is werner-purple and hyperemic. The cut surfaces show an unremarkable pinpoint lumen. The longitudinally bissected fimbria and two employment representative cross sections are submitted in B1. MERVIN Rothman (ASCP) 05/23/2017 10:49 AM End of Report [facility] 05/22/2017 9:41 EDT 05/22/2017 9:41 EDT Jose Beck MD PATHOLOGY ORDERABLES [facility] [address] [place] [address] documented in this encounter Visit Diagnoses Not on filedocumented in this encounter Care Teams Etl Bi Developer Relationship Specialty Start Date End Date Yovana Trevizo FNP [address] [place], [place] [phone] PCP - General 06/01/13 documented as of this encounter
--- OUTSIDE RECORDS SUMMARY | 2024-05-25 14:48 | XMS_ITS | Encounter Summary ---
Author Organization [facility] Address [address] [place] [address] Care Team Providers Care Environmental Compliance Engineer Name Role Phone Unavailable Primary Care Provider Unavailabl e Encounter Details Date Type Department Care Team (Late st Contact Info) Description 02/11/2007 Results Only [facility] [address] [place] [address] [place] [place] [phone] Social History Tobacco Use Types Packs/Day Years Used Date Smoking Tobacco: Never Assessed Sex and Gender Information Value Date Recorded Sex Assigned at Not on file Gender Identity Not on file Sexual Orientation Not on file documented as of this encounter Plan of Treatment Not on file documented as of this encounter Procedures Procedure Name Priority Date/Time Associated Diagnosis Comments CYTOPATHOLOGY Routine 02/11/2007 0:00 EDT documented in this encounter Results * CYTOPATHOLOGY (02/11/2007 0:00 EDT) Pathology Report: CYTOPATHOLOGY REPORT Reports generated via electronic interface contain original data; however they are lacking the format of the original report. Caution should be taken when reading/interpreti ng unformatted reports. Name: ? TIFFANIE MONREAL ? Accession #: ? [id number] : ? 1985 (Age: 21) ??F ?Collect Date: ? 02/11/2007 Location: ? [facility] ? Receive Date: ? 02/13/2007 Provider: ?ELENITA MYRICK CNM Copy to: ? Specimen/Source: ?ThinPrep Pap Test, Cervix/Endocervix, processed on rVue ThinPrep Imaging System, with manual evaluation Last Menstrual Period: ? 11/16/06 Menstrual/Pregnanc y Status: ? Other: ? Additional clinical information: ? abn pap ? yr HPVA - HPV testing requested if ASC-US on the current ThinPrep Pap test. ? SPECIMEN ADEQUACY ? Satisfactory for Evaluation - transformation zone component absent GENERAL CATEGORIZATION ? Negative for Intraepithelial Lesion or Malignancy INTERPRETATION ? Shift in delfino present suggestive of bacterial vaginosis. ? Document reviewed and electronically signed by: ? Elenita Hager, SCT(ASCP) ? Report Date: ??02/19/2007 15:08 End of Report JOSE OHARA 02/11/2007 02/13/2007 Elenita Myrick CNM PATHOLOGY ORDERABLES Performing Organization Address City/State/[facility] Co de Phone Number JOSE OHARA [address] [place] [address] documented in this encounter Visit Diagnoses Not on filedocumented in this encounter
--- OUTSIDE RECORDS SUMMARY | 2024-05-25 14:48 | XMS_ITS | Encounter Summary ---
Author Organization [facility] Address [address] [place] [address] Care Team Providers Care Senior Engineering Technician Name Role Phone Unavailable Primary Care Provider Unavailabl e Encounter Details Date Type Department Care Team (Late st Contact Info) Description 05/26/2013 Results Only [facility] Laboratory Services - [facility] [place] [address] [place], [place] [id number] Brian Senior, [address] [facility] [address] [place] [address] Social History Tobacco Use Types Packs/Day Years Used Date Smoking Tobacco: Never Assessed Sex and Gender Information Value Date Recorded Sex Assigned at Not on file Gender Identity Not on file Sexual Orientation Not on file documented as of this encounter Plan of Treatment Not on file documented as of this encounter Procedures Procedure Name Priority Date/Time Associated Diagnosis Comments SURGICAL PATHOLOGY Routine 05/26/2013 10 :18 EDT documented in this encounter Results * SURGICAL PATHOLOGY (05/26/2013 10:18 EDT) Pathology Report: SURGICAL PATHOLOGY REPORT Reports generated via electronic interface contain original data; however they are lacking the format of the original report. Caution should be taken when reading/interpreti ng unformatted reports. Name: ? TIFFANIE MONREAL ? Accession #: ? [id number] ? : ? 1985 (Age: 28) ??F ? Collect Date: ? 05/26/2013 ? Location: ? [facility] ? Receive Date: ? 05/27/2013 ? Provider: BRIAN SENIOR DO Copy to: NICOLE VILLALOBOS ENVIRONMENTAL PLANNER ? Final Pathologic Diagnosis: GALLBLADDER, CHOLECYSTECTOMY: - ??Chronic cholecystitis. - ??Cholelithiasis. - ??One reactive pericystic duct lymph node. Document reviewed and electronically signed by: KIZZY FLOREZ MD Report ??Date: 05/29/2013 11:14 By the signature above, the attending physician certifies that he/she has personally conducted a gross and/or microscopic examination of the described specimens and rendered or confirmed the above diagnosis. Specimen(s) Received: Gallbladder Clinical History: Biliary colic Gross Description: ? Received in formalin labelled with proper patient identification (initials S, M) and gallbladder is an intact gallbladder (10.5 x 3.5 x 3.0 cm) with an attached segment of cystic duct (1.2 cm in length x 0.4 cm in diameter). A sanders-yellow, firm cystic duct lymph node (1.5 x 0.6 x 0.6 cm) is present. ? The serosa is sanders-purple and smooth. The mucosa is sanders-yellow, focally hemorrhagic, and trabecular and the wall is 0.4 cm in thickness. The cystic duct lumen is patent and unremarkable. The cystic duct margin is inked blue. Thirty-one yellow multifaceted choleliths are present ranging from 0.5 cm to 0.9 cm in greatest dimension. ? Two pharmaceutical representative sections, the inked en face cystic duct margin, and the bisected cystic duct lymph node are submitted in cassette 1. Belem Samaniego 05/27/2013 11:21 AM End of Report JOSE OHARA 05/26/2013 10:1 8 EDT 05/27/2013 10:18 EDT Brian Senior DO PATHOLOGY ORDER DOE Performing Organization Address City/State/[facility] Co de Phone Number JOSE LEWIS [address] [address] documented in this encounter Visit Diagnoses Not on filedocumented in this encounter
--- OUTSIDE RECORDS SUMMARY | 2024-05-25 14:48 | XMS_ITS | Encounter Summary ---
Author Organization [facility] Address [address] [place] [address] Care Team Providers Care Fiberglass Quality Technician Name Role Phone Yovana Trevizo ANNALEE Primary Care Provider [phone] Encounter Details Date Type Department Care Team (Late st Contact Info) Description 02/12/2024 Lab Requisition [facility] Pathology & Laboratory Medicine - [address] [address] Outr Resulting Lab, Provider Social History Tobacco [...] Procedure Name Priority Date/Time Associated Diagnosis Comments PROLACTIN Routine 02/11/2024 12:25 EDT FSH Routine 02/11/2024 12:25 EDT documented in this encounter Results * FSH (02/11/2024 12:25 EDT) FSH 2.9 See Note mIU/mL 02/12/2024 19:04 EDT [facility] Blood VENOUS BLOOD / Unknown 02/11/2024 12:25 EDT 02/12/2024 17:30 EDT Narrative [facility] - 02/12/2024 19:04 EDT NOTE: Female FSH Reference Ranges (Menstruating): PHYSIOLOGICAL STATUS ? REFERENCE RANGE ? Follicular (-12 to -4 days): ?? 2.5 - 10.2 mIU/mL Midcycle (-3 to +2 days): ?3.4 - 33.4 mIU/mL Luteal (+4 to +12 days): ? 1.5 - 9.1 mIU/mL Postmenopausal: ?23.0 - 116.3 mIU/mL Reference Ranges for pediatric non-menstruating female patients have not been established. Provider Outr Resulting Lab CHEMISTRY & BLOOD GAS ORDERABLES [facility] [address] [place] [address] * PROLACTIN (02/11/2024 12:25 EDT) Prolactin 6.9 See Note ng/mL 02/12/2024 19:06 EDT [facility] Comment: NOTE: Female Reference Ranges: PHYSIOLOGICAL STATUS ?REFERENCE RANGE ? Postmenopausal ?1.8 - 20.3 ng/mL ?9.7 - 208.5 ng/mL Non- ?2.8 - 29.2 ng/mL Blood VENOUS BLOOD / Unknown 02/11/2024 12:25 EDT 02/12/2024 17:30 EDT Provider Outr Resulting Lab CHEMISTRY & BLOOD GAS ORDERABLES [facility] [address] [place] [address] documented in this encounter Visit Diagnoses Not on filedocumented in this encounter Care Teams Fiberglass Quality Technician Relationship Specialty Start Date End Date Yovana Trevizo FNP [address] [place], [place] [id number] PCP - General 06/01/13 documented as of this encounter
--- OUTSIDE RECORDS SUMMARY | 2024-05-25 14:48 | XMS_ITS | Encounter Summary ---
Author Organization [facility] Address [address] [place] [address] Care Team Providers Care Admitting Representative Name Role Phone Unavailable Primary Care Provider Unavailabl e Encounter Details Date Type Department Care Team (Late st Contact Info) Description 08/24/2003 Results Only [facility] - [place] [address] [place] [address] [place] [id number] Social History Tobacco Use Types Packs/Day Years Used Date Smoking Tobacco: Never Assessed Sex and Gender Information Value Date Recorded Sex Assigned at Not on file Gender Identity Not on file Sexual Orientation Not on file documented as of this encounter Plan of Treatment Not on file documented as of this encounter Procedures Procedure Name Priority Date/Time Associated Diagnosis Comments CYTOPATHOLOGY Routine 08/24/2003 0:00 EST documented in this encounter Results * CYTOPATHOLOGY (08/24/2003 0:00 EST) Pathology Report: CYTOPATHOLOGY REPORT Reports generated via electronic interface contain original data; however they are lacking the format of the original report. Caution should be taken when reading/interpreti ng unformatted reports. Name: ? TIFFANIE MONREAL ? Accession #: ? [id number] : ? 1985 (Age: 18) ??F ?Collect Date: ? 08/24/2003 Location: ? [facility] ? Receive Date: ? 08/26/2003 Provider: ?ELENITA RAMEZ VENTURA Copy to: ? Specimen/Source: ?ThinPrep Pap Test, Cervix/Endocervix Last Menstrual Period: ? 04/05/03 Menstrual/Pregnanc y Status: ? Previous Gynecologic Pathology: ? Yes: ? abn. pap, ? when ? SPECIMEN ADEQUACY ? Satisfactory for Evaluation - transformation zone component absent GENERAL CATEGORIZATION ? Negative for Intraepithelial Lesion or Malignancy INTERPRETATION ? Shift in delfino present suggestive of bacterial vaginosis. ? Document reviewed and electronically signed by: ? ROSARIO Mata(ASCP) ? Report Date: ??08/31/2003 12:49 End of Report JOSE OHARA 08/24/2003 08/26/2003 Elenita Grove CNM PATHOLOGY ORDERABLES Performing Organization Address City/State/[facility] Co de Phone Number JOSE OHARA [address] [place] [address] documented in this encounter Visit Diagnoses Not on filedocumented in this encounter
--- OUTSIDE RECORDS SUMMARY | 2024-05-25 14:48 | XMS_ITS | Encounter Summary ---
Author Organization [facility] Address [address] [place] [address] Care Team Providers Care Forest Ranger Name Role Phone Unavailable Primary Care Provider Unavailabl e Encounter Details Date Type Department Care Team (Late st Contact Info) Description 07/09/2011 Results Only [facility] Laboratory Services - [facility] [place] [address] [place], [place] [address] Nicole Trevizo FNP [address] [place], [place] [id number] Social History Tobacco Use Types Packs/Day Years [...] Diagnosis Comments PAP TEST- RESULT ONLY Routine 07/09/2011 0:00 EST documented in this encounter Results * PAP TEST- RESULT ONLY (07/09/2011 0:00 EST) Pathology Report: CYTOPATHOLOGY REPORT Reports generated via electronic interface contain original data; however they are lacking the format of the original report. Caution should be taken when reading/interpreti ng unformatted reports. Name: ? TIFFANIE MONREAL ? Accession #: ? [id number] : ? 1985 (Age: 26) ??F ?Collect Date: ? 07/09/2011 Location: ? [facility] ? Receive Date: ? 07/10/2011 Provider: ?NICOLE TREVIZO ENTRY LEVEL ACCOUNT EXECUTIVE Copy to: ? Specimen/Source: ?Pap Test, Cervix/Endocervix, ThinPrep Imaging System with manual evaluation Last Menstrual Period: ? 05/29/2011 ? SPECIMEN ADEQUACY ? Satisfactory for Evaluation - transformation zone component absent GENERAL CATEGORIZATION ? Negative for Intraepithelial Lesion or Malignancy INTERPRETATION ? Shift in delfino present suggestive of bacterial vaginosis. ? Document reviewed and electronically signed by: ? Elenita Hager, SCT(ASCP) ? Report Date: ??07/12/2011 13:29 End of Report JOSE OHARA 07/09/2011 07/10/2011 Nicole Trevizo ENTRY LEVEL ACCOUNT EXECUTIVE PATHOLOGY ORDERABLES Performing Organization Address City/State/[facility] Co de Phone Number OJSE OHARA [address] [place] [address] documented in this encounter Visit Diagnoses Not on filedocumented in this encounter
--- OUTSIDE RECORDS SUMMARY | 2024-05-25 14:48 | XMS_ITS | Encounter Summary ---
Author Organization [facility] Address [address] [place] [address] Care Team Providers Care Engagement Executive Name Role Phone Joseline Yovana FNP Primary Care Provider [phone] Encounter Details Date Type Department Care Team (Latest Contact Info) Description 02/14/2024 Lab Requisition [facility] Pathology & Laboratory Medicine - [facility] [address] [place] [address] Saumya Felipe FNP [address] [facility] [address] [place] [phone] Encounter for gynecological examination (general) (routine) without abnormal findings; Encounter for screening for malignant neoplasm of cervix; Encounter for general adult medical examination without abnormal findings Social History Tobacco Use Types Packs/Day Years [...] Name Priority Date/Time Associated Diagnosis Comments PAP TEST Today 02/11/2024 11:45 EDT Encounter for gynecological examination (general) (routine) without abnormal findings Encounter for screening for malignant neoplasm of cervix Encounter for general adult medical examination without abnormal findings HPV DNA DETECTION WITH GENOTYPING, PCR Today 02/11/2024 11:45 EDT Encounter for gynecological examination (general) (routine) without abnormal findings Encounter for screening for malignant neoplasm of cervix Encounter for general adult medical examination without abnormal findings documented in this encounter Results * HPV DNA DETECTION WITH GENOTYPING, PCR (02/11/2024 11:45 EDT) HPV High Risk type 16, PCR Negative Negative 02/19/2024 15:46 EDT [facility] HPV High Risk type 18, PCR Negative Negative 02/19/2024 15:46 EDT [facility] HPV other High Risk types, PCR Negative Negative 02/19/2024 15:46 EDT [facility] Comment: The following Other High Risk HPV types were not detected: ??31,33, 35, 39, 45, 51, 52, 56, 58, 59, 66 and 68. Pap Test CERVIX UTERI STRUCTURE / Unknown 02/11/2024 11:45 EDT 02/19/2024 7:26 EDT Saumya Felipe SAW SUPERINTENDENT MICROBIOLOGY - GENER AL ORDERABLES [facility] [address] [place] [address] * PAP TEST (02/11/2024 11:45 EDT) Specimens A. Cervix and/or Endocervix , ThinPrep Imaging System with Manual Evaluation 02/19/2024 15:46 EDT [facility] Specimen Adequacy Satisfactory for Evaluation - transformation zone component absent 02/19/2024 15:46 EDT [facility] General Categorization Negative for intraepithelial lesion or malignancy 02/19/2024 15:46 EDT [facility] Attestation . 02/19/2024 15:46 T [facility] at 1546 Clinical History See below 02/19/20 15:46 EDT [facility] Performing Lab [facility] 02/19/2024 15:46 EDT [facility] Scanned Images 02/19/2024 15:46 EDT [facility] HPV High Risk type 16, PCR Negative 02/19/2024 15:46 EDT [facility] HPV High Risk type 18, PCR Negative 02/19/2024 15:46 EDT [facility] HPV Other High Risk Types, PCR Negative The following Other High Risk HPV types were not detected: 31,33, 35, 39, 45, 51, 52, 56, 58, 59, 66 and 68. 02/19/2024 15:46 EDT [facility] Pap Test CERVIX UTERI STRUCTURE / Unknown 02/11/2024 11:45 EDT 02/14/2024 14:59 EDT Saumya MANTILLA PATHOLOGY ORDERABLES Performing Organization Address City/State/[facility] Co de Phone Number [facility] [address] [place] [address] documented in this encounter Visit Diagnoses Diagnosis Encounter for gynecological examination (general) (routine) without abnormal findings Encounter for screening for malignant neoplasm of cervix Screening for malignant neoplasm of the cervix Encounter for general adult medical examination without abnormal findings Unspecified general medical examination documented in this encounter Care Teams Engagement Executive Relationship Specialty Start Date End Date Yovana Trevizo FNP [address] [place], [place] [phone] PCP - General 06/01/13 documented as of this encounter
--- OUTSIDE RECORDS SUMMARY | 2024-05-25 14:48 | XMS_ITS | Encounter Summary ---
Author Organization [facility] Address [address] [place] [address] Care Team Providers Care C T Tech Name Role Phone Nicole Trevizo Primary Care Provider [phone] Encounter Details Date Type Department Care Team (Late st Contact Info) Description 06/23/2014 Results Only [facility] Laboratory Services - [facility] ([facility] [place] [place] [address] [place], [place] [address] Nicole Trevizo FNP [address] [place], [place] [phone] Social History Tobacco Use Types Packs/Day Years [...] Diagnosis Comments PAP TEST- RESULT ONLY Routine 06/23/2014 0:00 EST documented in this encounter Results * PAP TEST- RESULT ONLY (06/23/2014 0:00 EST) Pathology Report: CYTOPATHOLOGY REPORT Reports generated via electronic interface contain original data; however they are lacking the format of the original report. Caution should be taken when reading/interpreti ng unformatted reports. Name: ? TIFFANIE MONREAL ? Accession #: ? [id number] ? : ? 1985 (Age: 29) ??F ?Collect Date: ? 06/23/2014 ? Location: ? [facility] ? Receive Date: ? 06/25/2014 ? Provider: NICOLE TREVIZO LAY UP OPERATOR Copy to: ? Final Report SPECIMEN ADEQUACY ? Satisfactory for Evaluation - transformation zone component absent GENERAL CATEGORIZATION ? Negative for Intraepithelial Lesion or Malignancy INTERPRETATION ? Shift in delfino present suggestive of bacterial vaginosis. Last Menstrual Period: 05/26/14 Specimen/Source: ??Pap Test, Cervix/Endocervix, ThinPrep Imaging System with manual evaluation Document reviewed and electronically signed by: ? ROSARIO Capps(ASCP) ? Report ??Date: 06/30/2014 15:54 HPV with Pap Test ? Date Ordered: ? 06/30/2014 ? Status: ?? Signed Out ?Date Complete: ? 07/02/2014 ? By: ??System Interface ? Date Reported: ? 07/02/2014 ? Interpretation RESULT: Negative for HPV. No E6 or E7 mRNA is detected from HPV types 16,18,31,33,35, 39,45,51,52,56,58, 59,66, and 68 by can machine operator mediated amplification. Comments Document reviewed and electronically signed by: ? System Interface ? Report date: 07/02/2014 By the signature above, the attending physician certifies that he/she has personally conducted a gross and/or microscopic examination of the described specimens and rendered or confirmed the above diagnosis. End of Report [facility] 06/23/2014 06/25/2014 Nicole MANTILLA PATHOLOGY ORDERABLES [facility] [address] [place] [address] documented in this encounter Visit Diagnoses Not on filedocumented in this encounter Care Teams C T Tech Relationship Specialty Start Date End Date Nicole Trevizo FNP [address] [place], [place] [phone] PCP - General 06/01/13 documented as of this encounter
--- OUTSIDE RECORDS SUMMARY | 2024-05-25 14:48 | XMS_ITS | Encounter Summary ---
Author Organization [facility] [place] [address] Care Team Providers Care Analytics Manager Name Role Phone Saumya Felipe APRN Primary Care Provider [phone] Encounter Details Date Type Department Care Team (Latest Contact Info) Description 05/18/2024 Travel Social History Tobacco Use Types Packs/Day Years Used Date Smoking Tobacco: Former Cigarettes 0.5 2 0 03/27/2006 - 03/27/2008 Smokeless Tobacco: Never Alcohol Use Standard Drinks/Week Comments Yes 0 (1 standard drink = 0.6 oz pur e alcohol) once per month IPV Inpatient Questions Answer Date Recorded Does Anyone [...] 8:00 AM EDT Office [place] [address] Julienne Lacey APRN [facility] [place] [address] 07/24/2024 1:30 PM EST Office [place] [address] Jenni Brennan MD [facility] [address] [place] [address] documented as of this encounter Visit Diagnoses Not on filedocumented in this encounter Care Teams Analytics Manager Relationship Specialty Start Date End Date Saumya Felipe APRN [address] [place] [address] PCP - General Family Medicine 12/31/22 documented as of this encounter
--- OUTSIDE RECORDS SUMMARY | 2024-05-25 14:48 | XMS_ITS | Clinical Summary ---
Author Organization [facility] Address [facility] [place] [address] Care Team Providers Care Buck Swamper Name Role Phone Saumya Felipe APRN Primary Care Provider [phone] Allergies Active Allergy Reactions Criticality Noted Date Comments Guaifenesin Anaphylaxis High 08/25/2018 Dextromethorphan Hbr 03/07/2021 Other reaction(s): Anaphylaxsis Doxylamine Succinate 03/07/2021 Other reaction(s): Anaphylaxsis Dragon Fruit Anaphylaxis High 08/22/2023 Kiwi Medium 03/07/2021 Other reaction(s): Swelling/Edema Pseudoephedrine Hcl 03/07/2021 Other reaction(s): Anaphylaxsis Spider Venom Other (See Comments) High 08/25/2018 Ask patient. Medications Medication Sig Dispensed Refills Start Date End Date Status UNABLE TO FIND 2 tablets daily. Med Name: Bariatric multivitamin Active acetaminophen 500 mg Capsule Take by mouth 2 times daily. Active traZODone (Desyrel) 50 mg Tablet Take 150 mg by mouth nightly as needed for Sleep. 06/29/2021 Active loratadine (Claritin) 10 mg Tablet Take 10 mg by mouth daily. 11/01/2022 Active gabapentin (Neurontin) 300 mg capsule Take 300 mg by mouth 2 times daily. 04/10/2023 Active calcium carbonate/vitamin D3 (CALCIUM WITH VITAMIN D ORAL) Take by mouth. Activ e cyanocobalamin, vitamin B-12, (VITAMIN B-12 ORAL) Take by mouth. Active multivitamin with minerals (One-A-Day) Tablet Take 1 tablet by mouth daily. Active ferrous sulfate (IRON ORAL) Take by mouth every other day. Active metFORMIN XR (Glucophage XR) 500 mg ER 24 hr tablet 1 po qday x 2 week, then 2 po qday 60 tablet 3 04/30/2024 Active ondansetron (Zofran) 4 mg tablet Take 1-2 tablets by mouth every 8 hours as needed for Nausea. 12 tablet 05/03/2024 Active semaglutide, weight loss, (Wegovy) 0.25 mg/0.5 mL Pen InjectorIndicatio ns:Class 2 obesity with body mass index (BMI) of 36.0 to 36.9 in adult, unspecified obesity type, unspecified whether serious comorbidity present Inject 0.25 mg subcutaneously once a week for 28 days. 2 mL 05/20/2024 06/17/2024 Active Active Problems Problem Noted Date Diagnosed Date Migraine 09/11/2023 Abdominal pannus 11/10/2020 Overview (11/10/2020): Added automatically from request for surgery [id number] Bariatric surgery status: S/ P RNY gastric bypass September 2018 06/18/2019 Class 3 severe obesity with body mass index (BMI) of 40.0 to 44.9 in adult 07/29/2015 Overview (07/29/2015): Bariatric Surgery Program 1. Attended Introduction to the [facility] seminar, a comprehensive two hour meeting that provides a program overview, education on bariatric surgeries offered at [facility], risks and benefits, as well as patient expectations and follow up: [facility] BSP Educational seminars viewed: 3. Grades on post-testin-100%. The BSP Educational Handbook is provided at preoperative visit #1. 2. Pre-operative programmatic evaluations required: PCP evaluation and letter of support to proceed with surgery, BSP labwork (can be done on day of visit #1) and psychological evaluation- minimum of 2 visits. 3. Bariatric Surgery Program evaluations with RD and INSTRUMENT MAKER APPRENTICE: Not scheduled 4. Weight history: 297 pounds on 06/12/11, 296 pounds on 07/21/08, 291 pounds on 11/25/12, 312 pounds on 09/20/14, 302 pounds on 10/21/14, 303 pounds on 11/17/14 5. Gallbladder status: S/P cholecystectomy 6. Insurer specific requirements: [place] Medicaid: 3 months of nutrition counseling, completed. H pylori testing, completed 01/04/15, negative, TSH, completed. (other lab done: fasting glucoce, lipid profile, CBC and CMP December 2014) 7. BSP Team meeting discussion: Patient insight into causes of obesity: onset age 10, inactivity, overconsumption and eating for emotional well-being. History of binge eating and purging Upper airway resistance syndrome with sleep frag mentation 07/29/2015 Overview (07/29/2015): A. PSG done on 09/14/14: AHI 2.5/ hour. REM AHI 1.3/ hour. Majority of events seen in supine position. Vasile oxygen saturation 88%. Mean oxygen saturation 93%. Underestimation of severity due to minimal supine sleep. Recommendations: patient can be started on CPAP therapy with mask of choice. B. Sleep [facility] follow up at [facility] on 10/11/14: same as PSG Insomnia 07/29/2015 Major depressive disorder 07/29/2015 Overview (07/29/2015): History of psychiatric admission 09/2013 for SI at [facility]. Not currently taking antidepressants at of January 2015 Anxiety disorder 07/29/2015 Breast hypertrophy 10/30/2011 Encounters Date Type Department Care Team Description 05/20/2024 Refill [facility] [place] [address] Jenni Brennan MD Class 2 obesity with body mass index (BMI) of 36.0 to 36.9 in adult, unspecified obesity type, unspecified whether serious comorbidity present 05/18/2024 3:30 PM EDT Clinical Support [facility] [place] [address] Class 2 obesity with body mass index (BMI) of 36.0 to 36.9 in adult, unspecified obesity type, unspecified whether serious comorbidity present 05/18/2024 Travel 05/03/2024 3:26 PM EDT - 05/03/2024 6:39 PM EDT [place] [address] Liane Davila MD Leahy, Dania Mcneill MD Pyelonephritis, acute Discharge Disposition: Home 05/03/2024 Travel 04/29/2024 Transcribe Orders eDH Incoming Referrals [phone] Saumya Felipe APRN Constipation, unspecified constipation type 04/03/2024 2:15 PM EDT TH Visit (TeleHealth) [facility] [place] [phone] Jenni Brennan MD Class 2 obesity with body mass index (BMI) of 37.0 to 37.9 in adult, unspecified obesity type, unspecified whether serious comorbidity present (Primary Dx) 03/13/2024 Refill [facility] [place] [phone] Jenni Brennan MD Class 2 obesity with body mass index (BMI) of 38.0 to 38.9 in adult, unspecified obesity type, unspecified whether serious comorbidity present from Last 3 Months Family History Medical History Relation Comments Heart Disease Father Obesity Father at 58 Diabetes Mother Obesity Mother Sleep Apnea Mother Heart Disease Paternal Grandfather Heart Disease Paternal Grandmother Obesity Sister s/p gastric bypa ss Relation Status Comments Father Mother Paternal Grandfather Paternal Grandmother Sister Social History Tobacco Use Types Packs/Day Years Used Date Smoking Tobacco: Former Cigarettes 0.5 2 0 03/27/2006 - 03/27/2008 Smokeless Tobacco: Never Alcohol Use Standard Drinks/Week Comments Yes 0 (1 standard drink = 0.6 oz pur e alcohol) once per month [facility] Inpatient Questions Answer Date Recorded Does Anyone [...] on file Sexual Orientation Not on file Last Filed Vital Signs Vital Sign Reading Time Taken Comments Blood Pressure 121/73 05/18/2024 3:39 PM EDT Pulse 83 05/18/2024 3:39 PM EDT Temperature 37.1 ??C (98.8 ??F) 05/03/2024 2:29 PM ED T Respiratory Rate 16 05/03/2024 5:49 PM EDT Oxygen Saturation 98% 05/03/2024 5:49 PM EDT Inhaled Oxygen Concentration - - Weight 101.3 kg (223 lb 4.8 oz) 05/18/2024 3:39 PM EDT Height 167.6 cm (5' 6) 05/18/2024 3:39 PM EDT Body Mass Index 36.04 05/18/2024 3:39 PM EDT Plan of Treatment Upcoming Encounters Date Type Department Care Team (Late st Contact Info) Description 06/02/2024 8:00 AM EDT Office Visit [place] [phone] Julienne Lacey APRN [facility] [place] [address] 07/24/2024 1:30 PM EST Office Visit [facility] [place] [phone] Jenni Brennan MD [facility] DR [facility] [place] [address] Health Maintenance Due Date Last Done Comments CT Colonography 1985 FIT DNA 1985 FIT 1985 Sigmoidoscopy 1985 HIV screen 2003 Hepatitis C Screening 2003 Hepatitis B vaccine (0-59 yrs) (1) 2004 Tetanus/Diphtheria/Pertussis Vaccines (1 - Tdap) 2004 HPV test 2015 PAP Smear 2015 Covid-19 Vaccine (1 - season) 2024 Influenza (Flu) vaccine (1 o f 1 - Influenza standard series) 04/12/2024 Lipid Screening 09/26/2025 09/26/2020, 03/14, 08/28/2018 Colonoscopy 08/22/2030 08/22/2023, 08/22/2023 Colorectal Cancer Screening 08/22/2030 Sigmoidoscopy (10 year) with FIT yearly 08/22/2033 08/22/2023, 08/22/2023 Goals Goal Patient Goal Type Associated Problems Recent Progress Patient-Stated? Author Nutrition Exercise Kamilla Koch RD Note: -Continue with adequate fiber intake (25 grams per day) and protein intake (60- 80 grams per day) Procedures Procedure Name Priority Date/Time Associated Diagnosis Comments CT ABDOMEN AND PELVIS WO CONTRAST STAT 05/03/2024 5:00 PM EDT URINALYSIS MICROSCOPIC WITH REFLEX TO CULTURE STAT 05/03/2024 4:25 PM EDT URINALYSIS WITH REFLEX CULTURE STAT 05/03/2024 4:25 PM EDT COMPREHENSIVE METABOLIC PANEL STAT 05/03/2024 4:25 PM EDT CBC (WITH DIFF) STAT 05/03/2024 4:25 PM EDT COLONOSCOPY Routine 08/22/2023 1:07 PM EST LIPID PANEL (REFLEX DIRECT LDL) Routine 09/26/2020 12:20 PM EST Bariatric surgery status: 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 Iron deficiency Post-resection malabsorption Low vitamin B12 level from Last 3 Months or Most Recently Relevant to Health Maintenance Results * CT Abdomen & Pelvis wo Contrast (05/03/2024 5:00 PM EDT) Pathologist [employer] WORKSTATION ID [id number] DH RAD Anatomical Region Laterality Modality Abdomen, Pelvis Computed Tomogra phy Impressions 05/03/2024 5:34 PM EDT 1. ??Minimally enlarged left kidney with perinephric and periureteric fat stranding. 2. ??Mildly prominent left upper urinary tract without urinary tract stone. The non contrast CT findings are most consistent with acute left pyelonephritis. A recently passed left ureteral stone is possible but less likely. 4. Normal right kidney and upper urinary tract. 3. Other incidental findings, described above. Thank you for letting us participate in the care of this patient. ??If you are a health care provider and have any questions regarding this report, please contact the number below. ??For patients who have questions please contact the health care director rn that requested your imaging first. ? Narrative 05/03/2024 5:34 PM EDT EXAMINATION: CT ABDOMEN AND PELVIS WO CONTRAST CLINICAL HISTORY: left flank pain and fever r/o pyelo vs stone TECHNIQUE: Helical CT of the abdomen and pelvis without intravenous contrast. Oral contrast was not administered. Multiplanar reformatted images were generated. COMPARISON: CT abdomen and pelvis, 03/14/2023 FINDINGS: The absence of intravenous contrast limits the evaluation of solid viscera and vasculature. Lower chest: Normal. Liver: Normal size and attenuation. Bile ducts: Nondilated. Gallbladder: Cholecystectomy. Pancreas: Normal attenuation. Spleen: Normal size. Adrenals: Normal. Right kidney/ureter: No collecting system dilation or calculi. Left kidney/ureter: Slightly enlarged left perinephric space and periureteric fat stranding. Minimal asymmetric left upper urinary tract prominence with no stone seen. Urinary Bladder: No calculi. Vasculature: No abdominal aortic aneurysm. Lymph Nodes: Increased numbers of small nodes in the left periaortic region, especially near the left renal hilum, most likely reactive. Bowel: Prior Thomas-en-Y gastric bypass procedure. Similar appearance of the gastrojejunal a jejunal-jejunal anastomoses. Peritoneum and retroperitoneum: No free fluid or loculated fluid collection. No pneumoperitoneum. No mesenteric inflammation. Abdominal wall: Postsurgical changes in the anterior abdominal wall. Reproductive organs: Small uterus, question partial hysterectomy. No adnexal mass. Osseous structures: No suspicious lesions. Procedure Note Hiram Ang MD - 05/03/2024 EXAMINATION: CT ABDOMEN AND PELVIS WO CONTRAST CLINICAL HISTORY: left flank pain and fever r/o pyelo vs stone TECHNIQUE: Helical CT of the abdomen and pelvis without intravenouscontrast. Oral contrast was not administered. Multiplanar reformatted images were generated. COMPARISON: CT abdomen and pelvis, 03/14/2023 FINDINGS: The absence of intravenous contrast limits the evaluation of solid visceraand vasculature. Lower chest: Normal. Liver: Normal size and attenuation. Bile ducts: Nondilated. Gallbladder: Cholecystectomy. Pancreas: Normal attenuation. Spleen: Normal size. Adrenals: Normal. Right kidney/ureter: No collecting system dilation or calculi. Left kidney/ureter: Slightly enlarged left perinephric space andperiureteric fat stranding. Minimal asymmetric left upper urinary tract prominence withno stone seen. Urinary Bladder: No calculi. Vasculature: No abdominal aortic aneurysm. Lymph Nodes: Increased numbers of small nodes in the left periaorticregion, especially near the left renal hilum, most likely reactive. Bowel: Prior Thomas-en-Y gastric bypass procedure. Similar appearance ofthe gastrojejunal a jejunal-jejunal anastomoses. Peritoneum and retroperitoneum: No free fluid or loculated fluidcollection. No pneumoperitoneum. No mesenteric inflammation. Abdominal wall: Postsurgical changes in the anterior abdominal wall. Reproductive organs: Small uterus, question partial hysterectomy. Noadnexal mass. Osseous structures: No suspicious lesions. IMPRESSION 1. Minimally enlarged left kidney with perinephric and periureteric fat stranding. 2. Mildly prominent left upper urinary tract without urinary tractstone. The non contrast CT findings are most consistent with acute leftpyelonephritis. A recently passed left ureteral stone is possible but less likely. 4. Normal right kidney and upper urinary tract. 3. Other incidental findings, described above. Thank you for letting us participate in the care of this patient. If youare a health care provider and have any questions regarding this report,please contact the number below. For patients who have questions please contactthe health care director rn that requested your imaging first. Liane Gomez MD IMG CT ORDERABLES * (ABNORMAL) Urinalysis Microscopic with Reflex to Culture (05/03/2024 4:25 PM EDT) Bacteria, Urine Many(A) None /HPF 5:50 PM EDT [facility] RBC, Urine 2 0 - 4 /HPF 05/03/2024 5:50 PM EDT [facility] WBC, Urine 7(H) 0 - 5 /HPF 05/03/2024 5:50 PM EDT [facility] Squamous Epithelial Cells, Urine 4 0 - 5 /HPF 05/03/2024 5:50 PM EDT [facility] Hyaline Casts, Urine 1 0 - 2 /LPF 05/03/2024 5:50 PM EDT [facility] CULTURE ADDED? 05/03/2024 5:50 PM EDT [facility] Urine URINE SPECIMEN OBTAINED BY CLEAN CATCH PROCEDURE / Unknown Non Blood Collection / Unknown 05/03/2024 4:25 PM EDT 05/03/2024 5:10 PM EDT Liane Gomez MD URINE ORDERABLES [facility] [place] [place] [address] * (ABNORMAL) Urinalysis with reflex Culture (05/03/2024 4:25 PM EDT) Glucose, Urine Dipstick Negative Negative 05/03/2024 5:50 PM EDT [facility] Protein, Urine Dipstick Trace(A) Negative 05/03/2024 5:50 PM EDT [facility] Bilirubin, Urine Dipstick Negative Negative 05/03/2024 5:50 PM EDT [facility] Comment:Clinical correlation required for positive Urine Bilirubin results as false positive may occur with some drugs and drug related products. If a false positive is suspected a serum total bilirubin should be considered if clinically indicated. Urobilinogen, Urine Dipstick Normal Normal, 0.2 mg/dL, 1.0 mg/dL 05/03/2024 5:50 PM EDT [facility] pH, Urine (dipstick) 7.0 5.0 - 8.0 05/03/2024 5:50 PM EDT [facility] Blood, Urine Dipstick Negative Negative 05/03/2024 5:50 PM EDT [facility] Ketone, Urine Dipstick Negative Negative 05/03/2024 5:50 PM EDT [facility] Nitrite, Urine Dipstick Negative Negative 05/03/2024 5:50 PM EDT [facility] Leukocytes, Urine Dipstick Small(A) Negative 05/03/2024 5:50 PM EDT [facility] Specific [place] Urine Automated 1.006 1.005 - 1.030 05/03/2024 5:50 PM EDT [facility] Appearance, Urine Dipstick Clear Clear 05/03/2024 5:50 PM EDT [facility] Color, Urine Dipstick Yellow Yellow, Dark Yellow 05/03/2024 5:50 PM EDT [facility] CULTURE ADDED? 05/03/2024 5:50 PM EDT [facility] Urine URINE SPECIMEN OBTAINED BY CLEAN CATCH PROCEDURE / Unknown Non Blood Collection / Unknown 05/03/2024 4:25 PM EDT 05/03/2024 5:10 PM EDT Liane Gomez MD URINE ORDERABLES [facility] [place] [place] [address] * (ABNORMAL) CBC (with Diff) (05/03/2024 4:25 PM EDT) White Blood Cell 10.97(H) 4.00 - 9.50 x10(3)/mc L 05/03/2024 5:15 PM [facility] Red Blood Cell 4.25 4.00 - 5.21 x10(6)/mc L 05/03/2024 5:15 PM [facility] Hemoglobin 12.1 11.7 - 15.5 g/dL 05/03/2024 5:15 PM [facility] Hematocrit 36.3 35.7 - 45.8 % 05/03/2024 5:15 PM [facility] Mean Cell Volume 85.4 82.6 - 94.4 fL 05/03/2024 5:15 PM [facility] Mean Cell Hemoglobin 28.5 27.1 - 32.0 pg 05/03/2024 5:15 PM [facility] Mean Cell Hemoglobin Concentration 33.3 31.7 - 35.0 g/dL 05/03/2024 5:15 PM [facility] Platelet 184 145 - 357 x10(3)/mc L 05/03/2024 5:15 PM [facility] Mean Platelet Volume 11.1 7.6 - 12.9 fL 05/03/2024 5:15 PM [facility] RDW Standard Deviation 42.9 37.0 - 46.0 fL 05/03/2024 5:15 PM [facility] RDW coefficient of variation 13.7 11.5 - 14.1 % 05/03/2024 5:15 PM [facility] NRBC% auto 0.0 % 05/03/2024 5:15 PM [facility] NRBC Absolute <0.01 <0.01 x10(3)/mc L 05/03/2024 5:15 PM [facility] Neutrophil % 73.5 % 05/03/2024 5:15 PM [facility] Neutrophil Absolute (ANC) - Automated 8.08(H) 1.70 - 6.10 x10(3)/mc L 05/03/2024 5:15 PM EDT [facility] Lymph % 11.8 % 05/03/2024 5:15 PM EDT [facility] Lymph Absolute 1.29 0.90 - 3.20 x10(3)/mc L 05/03/2024 5:15 PM EDT [facility] Monocyte % 13.5 % 05/03/2024 5:15 PM EDT [facility] Monocyte Absolute 1.48(H) 0.30 - 0.90 x10(3)/mc L 05/03/2024 5:15 PM EDT [facility] Eos % 0.4 % 05/03/2024 5:15 PM EDT [facility] Eos Absolute 0.04 0.00 - 0.40 x10(3)/mc L 05/03/2024 5:15 PM EDT [facility] Basophil % 0.4 % 05/03/2024 5:15 PM EDT [facility] Baso Absolute 0.04 0.00 - 0.10 x10(3)/mc L 05/03/2024 5:15 PM EDT [facility] Immature Gran % 0.4 % 5:15 PM EDT [facility] Immature Gran Absolute 0.04 0.00 - 0.04 x10(3)/mc L 05/03/2024 5:15 PM EDT [facility] Blood VENOUS BLOOD SPECIMEN / Unknown IP Care Team Draw / Unknown 05/03/2024 4:25 PM EDT 05/03/2024 5:10 PM EDT Liane Gomez MD HEMATOLOGY ORDERABLE S [facility] [place] [place] [address] * (ABNORMAL) Comprehensive metabolic panel (05/03/2024 4:25 PM EDT) Glucose 105 65 - 199 mg/dL 05/03/2024 5:39 PM [facility] Comment:Glucose Concentratio n >=200 mg/dL plus symptoms is consistent with Diabetes Mellitus. Blood Urea Nitrogen 7(L) 8 - 18 mg/dL 05/03/2024 5:39 PM [facility] Creatinine 0.66(L) 0.70 - 1.20 mg/dL 05/03/2024 5:39 PM [facility] Sodium 134(L) 135 - 145 mMol/L 05/03/2024 5:39 PM [facility] Potassium 4.1 3.5 - 5.0 mMol/L 05/03/2024 5:39 PM [facility] Chloride 101 98 - 107 mMol/L 05/03/2024 5:39 PM [facility] Carbon Dioxide 21(L) 22 - 31 mMol/L 05/03/2024 5:39 PM [facility] Anion Gap 12 5 - 15 mMol/L 05/03/2024 5:39 PM [facility] Calcium 9.0 8.5 - 10.5 mg/dL 05/03/2024 5:39 PM [facility] Protein, Total 7.1 6.1 - 8.0 g/dL 05/03/2024 5:39 PM [facility] Albumin 3.7 3.2 - 5.2 g/dL 05/03/2024 5:39 PM [facility] Aspartate Aminotransferase 24 <=30 unit/L 05/03/2024 5:39 PM [facility] Alanine Aminotransferase 32(H) 0 - 30 unit/L 05/03/2024 5:39 PM [facility] Alkaline Phosphatase 102 35 - 105 unit/L 05/03/2024 5:39 PM [facility] Bilirubin, Total 0.4 <=1.3 mg/dL 05/03/2024 5:39 PM [facility] Est Glomerular Filtration Rate - Female 115 mL/min/1. 73 m?? 05/03/2024 5:39 PM EDT [facility] Comment: This patient's estimated GFR was calculated using the 2020 CKD-EPI equation. The estimated GFR can vary from the measured GFR by up to 30% in the absence of rapidly changing kidney function. Assessment of the estimated GFR is not appropriate when creatinine concentrations are rapidly changing. For clinical situations in which a more precise estimate of GFR is necessary, consider alternative methods of GFR estimation such as a 24-hour urine creatinine clearance. Assignment of CKD stage 1 - 5 for patients with an eGFR near the transition point between stages may be based on clinical assessment of muscle mass and symptoms in addition to eGFR. Link: eGFR Calculator [employer] Blood VENOUS BLOOD SPECIMEN / Unknown IP Care Team Draw / Unknown 05/03/2024 4:25 PM EDT 05/03/2024 5:10 PM EDT Liane Gomez MD CHEMISTRY ORDERABLES Performing Organization Address City/State/[facility] Co de Phone Number [facility] [place] [address] * COLONOSCOPY (08/22/2023 1:07 PM EST) COLONOSCOPY [facility] Endoscopy Procedure Date: 08/22/2023 1:07 PM ? Patient Name: Tiffanie Monreal ? Date of : 1985 ? Age: 38 ? Order #: [id number] ? Instrument Name: [id number] ? Procedure: ? Colonoscopy Indications: ? Rectal bleeding Providers: ? Ziyad Riggins MD, Nazia ? Miah Dumont Referring : ?Saumya Young Medicines: ? Monitored Anesthesia Care Complications: ? No immediate complications. Procedure: ? Pre-Anesthesia Assessment: ? - Prior to the procedure, a History ? and Physical was performed, and ? patient medications and allergies ? were reviewed. The patient's ? tolerance of previous anesthesia ? was also reviewed. The risks and ? benefits of the procedure and the ? sedation options and risks were ? discussed with the patient. All ? questions were answered, and ? informed consent was obtained. ? Prior Anticoagulants: The patient ? has taken no anticoagulant or ? antiplatelet agents. ASA Grade ? Assessment: II - A patient with ? mild systemic disease. After ? reviewing the risks and benefits, ? the patient was deemed in ? satisfactory condition to undergo ? the procedure. ? The procedure, indications, ? benefits, risks and alternatives ? were explained to the patient. ? Specifically discussed were ? potential complications including, ? but not limited to, bleeding, ? perforation, infection, missing a ? cancer, and adverse medication ? reactions. The patient was placed ? in the left lateral decubitus ? position, and a digital rectal exam ? was performed. The Colonoscope was ? inserted in the anus and under ? direct visualization, advanced to ? 15 cm into the ileum. Careful ? inspection was made as the ? colonoscope was withdrawn. The ? colonoscopy was performed without ? difficulty. The patient tolerated ? the procedure well. The quality of ? the bowel preparation was evaluated ? using the BBPS ([place] Bowel ? Preparation Scale) with scores of: ? Right Colon = 2 (minor amount of ? residual staining, small fragments ? of stool and/or opaque liquid, but ? mucosa seen well), Transverse Colon ? = 3 (entire mucosa seen well with ? no residual staining, small ? fragments of stool or opaque ? liquid) and Left Colon = 3 (entire ? mucosa seen well with no residual ? staining, small fragments of stool ? or opaque liquid). The total BBPS ? score equals 8. The terminal ileum, ? ileocecal valve, appendiceal ? orifice, and rectum were ? photographed. Scope withdrawal time ? was 7 minutes. ? Findings: ? Hemorrhoids were found on perianal exam. ? Small non-bleeding internal hemorrhoids were found ? during retroflexion. ? The colon (entire examined portion) appeared normal. ? The terminal ileum appeared normal. ? Moderate Sedation: ? Not applicable - See Anesthesia documentation Impression: ?- Small external hemorrhoids found ? on perianal exam. ? - Small non-bleeding internal ? hemorrhoids. ? - The entire examined colon is ? normal. ? - The examined portion of the ileum ? was normal. ? - No specimens collected. Recommendation: ?- Use a daily fiber supplement ? (snf). For example Benefiber, ? Citrucel, Fibercon, Konsyl or ? Metamucil. ? - OK to use Miralax Half capful to ? full capful on a regular basis ? (daily or every other day) to ? prevent constipation. ? - Repeat colonoscopy at age 45 for ? screening purposes. ? Attending Participation: ? I personally performed the entire procedure. ? Dr. Charli Riggins ____ Ziyad Riggins MD 08/22/2023 2:21:31 PM Number of Addenda: 0 Note Initiated On: 08/22/2023 1:07 PM [employer]ATION 08/22/2023 1:07 PM EST Saumya Matteo [facility] * Lipid Panel (Reflex Direct LDL) (09/26/2020 12:20 PM EST) Cholesterol, Total 139 mg/dL [facility] Comment: Lower Risk: <200 mg/dL Average Risk: 200-239 mg/dL Higher Risk: >rc=136 mg/dL Triglyceride 59 mg/dL [facility] Comment: Average Risk/Lower Risk: <150 mg/dL Borderline High Risk: 150-199 mg/dL High Risk: 200-499 mg/dL Very High Risk: >ea=074 mg/dL HDL Cholesterol 60 mg/dL [facility] Comment: Males: ?? Higher Risk: <40 mg/dL Females: ?? HIgher Risk: <50 mg/dL LDL Cholesterol 67 mg/dL [facility] Comment: Lowest Risk: <100 mg/dL Lower Risk: 100-129 mg/dL Borderline High Risk: 130-159 mg/dL High Risk: 160-189 mg/dL Very High Risk: >tr=911 mg/dL Cholesterol/HDL Ratio 2.3 ratio [facility] Lipid Interpretation See Note [facility] Comment: Lipid management should be guided by a patient? s ASCVD risk, goals and preferences. ACC/AHA Guidelines recommend high intensity statin if clinical ASCVD or LDL greater than or equal to 190 mg/dL. http://[email or web address]-EFY-[email or web address] Adults aged 40-75 with LDL 70-189 mg/dL should have their 10 year ASCVD risk estimated with the ACC/AHA ASCVD risk finance advisor http://tools.acc.org/EVOYT-Nbae-Lvqymvdzt/ Statin should be discussed if risk greater than or equal to 7.5% in non-diabetics. With diabetes, moderate intensity statin is recommended if risk less than 7.5%, high intensity if risk greater than or equal to 7.5%. Annual lipid monitoring on statins is not necessary. Evaluate secondary causes of Triglycerides greater than 500 mg/dL or LDL greater than 190 mg/dL: See table 6 of ACC/AHA Guideline. Lifestyle modification is a critical component of ASCVD risk reduction. Blood specimen (specimen) 09/26/2020 12:20 PM EST 09/26/2020 12:41 PM EST Narrative Resulting Agency Comment Spec In Lab [facility] [place] [employer] [facility] [place] [place] [address] from Last 3 Months or Most Recently Relevant to Health Maintenance Advance Directives * Attempt Cardiopulmonary Resuscitation - Inpatient (Latest Code Status on File) Date Activated Date Inactivated Comments 01/03/2021 4:22 PM 01/04/2021 12:00 PM Question Answer Comments Code Status decision made by: Patient * Attempt Cardiopulmonary Resuscitation - Inpatient Date Activated Date Inactivated Comments 01/03/2021 1:06 PM 01/03/2021 4:22 PM Question Answer Comments Code Status decision made by: Patient * Full Code Date Activated Date Inactivated Comments 09/30/2018 7:11 PM 10/01/2018 7:55 PM Question Answer Comments Does patient have capacity to make decision: Yes * Full Code Date Activated Date Inactivated Comments 09/30/2018 7:09 PM 09/30/2018 7:11 PM Question Answer Comments Does patient have capacity to make decision: Yes Care Teams Buck Swamper Relationship Specialty Start Date End Date Saumya Felipe APRN [address] [place] [address] PCP - General Family Medicine 12/31/22
--- OUTSIDE RECORDS SUMMARY | 2024-05-25 14:48 | XMS_ITS | Clinical Summary ---
Author Organization [facility] Address [address] [place] [address] Care Team Providers Care Maintenance Supervisor Electrical Name Role Phone Yovana Trevizo Primary Care Provider [phone] Social History Tobacco Use Types Packs/Day Years Used Date Smoking Tobacco: Never Assessed Interpersonal Safety Answer Date Record ed Physically Hurt Never 03/13/2020 Verbally Threaten Not on file 03/13/2020 Sex and Gender Information Value Date Recorded Sex Assigned at Not on file Gender Identity Not on file Sexual Orientation Not on file Plan of Treatment Health Maintenance Due Date Last Done Comments Hepatitis C Screen 1985 Hepatitis B Vaccine (1 of 3 - 19+ 3-dose series) 03/20 COVID-19 Vaccine (2022- season) 2023 Care Teams Maintenance Supervisor Electrical Relationship Specialty Start Date End Date Yovana Trevizo FNP [address] [place] [address] PCP - General 06/01/13
--- OUTSIDE RECORDS SUMMARY | 2024-05-25 14:48 | XMS_ITS | Encounter Summary ---
Author Organization [facility] Address [address] [place] [address] Care Team Providers Care Mammography Technician Name Role Phone Yovana Trevizo ANNALEE Primary Care Provider [phone] Encounter Details Date Type Department Care Team (Late st Contact Info) Description 07/30/2020 Lab Requisition [facility] Pathology & Laboratory Medicine - [address] [address] Outr Resulting Lab, Provider Social History Tobacco [...] Procedure Name Priority Date/Time Associated Diagnosis Comments ZZCOVID-19 TEST [facility] PCR Today 07/30/2020 1:05 EST COVID-19 TESTING Routine 07/30/2020 1:05 EST documented in this encounter Results * COVID-19 TEST [facility] PCR (07/30/2020 1:05 EST) Swab ENTIRE NASOPHARYNX / Unknown 07/30/2020 1:05 EST 07/30/2020 21:43 EST Provider Outr Resulting Lab MICROBIOLOGY - GENERAL ORDERABLES [facility] [address] [place] [address] * COVID-19 TESTING (07/30/2020 1:05 EST) COVID-19 rt-PCR Result Negative Negative 08/01/2020 17:45 EST [facility] Comment: Negative results do not preclude 2019-nCoV infection and should not be used as the sole basis for treatment or other patient management decisions. Negative results must be combined with clinical observations, patient history, and epidemiological information. This test was developed and its performance characteristics determined by [facility]. It has not been cleared or approved by the US Food and Drug Administration. FDA does not require this test to go through premarket FDA review. This test is used for clinical purposes. It should not be regarded as investigational or for research. This laboratory is certified under the Clinical Laboratory Improvement Amendments (CLIA) as qualified to perform high complexity clinical laboratory testing. This test is based on the CDC COVID-19 Emergency Use Authorization (EUA) assay, with minor modification as defined by the FDA Performed on the Glownet 7 Flex. Performing Lab Quantstudio 7 [facility] 08/01/2020 17:45 EST [facility] Swab 07/30/2020 1:05 EST 07/30/2020 21:43 EST Provider Outr Resulting Lab MICROBIOLOGY - GENERAL ORDERABLES [facility] [address] [place] [address] documented in this encounter Visit Diagnoses Not on filedocumented in this encounter Care Teams Mammography Technician Relationship Specialty Start Date End Date Yovana Trevizo FNP [address] [place], [place] [id number] PCP - General 06/01/13 documented as of this encounter
--- OUTSIDE RECORDS SUMMARY | 2024-05-25 14:49 | XMS_ITS | Encounter Summary ---
Author Organization [facility] [place] [address] Care Team Providers Care Cake Icer Name Role Phone Saumya Felipe APRN Primary Care Provider [phone] Encounter Details Date Type Department Care Team (Late st Contact Info) Description 10/13/2023 Orders Only [place] [phone] Jenni Brennan MD [facility] [address] Class 2 obesity with body mass index (BMI) of 39.0 to 39.9 in adult, unspecified obesity type, unspecified whether serious comorbidity present Social History Tobacco Use Types Packs/Day Years Used Date Smoking Tobacco: Former Cigarettes 0.5 2 0 03/27/2006 - 03/27/2008 Smokeless Tobacco: Never Alcohol Use Standard Drinks/Week Comments Yes 0 (1 standard drink = 0.6 oz pur e alcohol) once per month Sex and Gender Information Value Date Recorded Sex Assigned at Not on file Gender Identity Not on file Sexual Orientation Not on file documented as of this encounter Plan of Treatment Upcoming Encounters Date Type Department Care Team (Late st Contact Info) Description 06/02/2024 8:00 AM EDT Office [place] [phone] Julienne Lacey APRN [facility] [place] [address] 07/24/2024 1:30 PM EST Office Visit [place] [phone] Jenni Brennan MD [facility] [address] documented as of this encounter Visit Diagnoses Diagnosis Class 2 obesity with body mass index (BMI) of 39.0 to 39.9 in adult, unspecified obesity type, unspecified whether serious comorbidity present documented in this encounter Care Teams Cake Icer Relationship Specialty Start Date End Date Saumya Felipe APRN [address] [place] [address] PCP - General Family Medicine 12/31/22 documented as of this encounter
--- OUTSIDE RECORDS SUMMARY | 2024-05-25 14:49 | XMS_ITS | Encounter Summary ---
Author Organization [facility] [place] [address] Care Team Providers Care Control Clerk Food And Beverage Name Role Phone Saumya Felipe APRN Primary Care Provider [phone] Reason for Visit * Auth/Cert (Routine) Specialty Diagnoses / Procedures Referred By Sayda t Referred To Contact Diagnoses S/P bariatric surgery Abdominal pain Iron deficiency s/p bariatric surgery Procedures PRO LAP, DIAGNOSTIC ABDOMEN PRO COLONOSCOPY, DIAGNOSTIC PRO UPPER GI ENDOSCOPY, DIAGNOSTIC PRO COLONOSCOPY, BIOPSY PRO COLONOSCOPY, REMV LESN, SNARE PRO UPPER GI ENDOSCOPY, BIOPSY PRO UP GI ENDOSCOPY, REMV TUMOR, SNARE PRO ANES, COMBINED UPPER OR LOWER ENDOSCOPY LAPAROSCOPY, DIAGNOSTIC, ABDOMEN (WRVU 5.14) COLONOSCOPY, DIAGNOSTIC (WRVU 3.26) EGD, UPPER GI ENDOSCOPY (WRVU 2.09) Jerica Bronson MD [facility] [place] [address] [facility] Referral ID Status Reason Start Date Expiration Date Visits Re quested Visits Authorized [id number] 1 1 Encounter Details Date Type Department Care Team (Late st Contact Info) Description 07/18/2023 7:30 AM EST - 07/18/2023 11:09 AM EST [place] [id number] Jerica Bronson MD [facility] [place] [address] LAPAROSCOPY, DIAGNOSTIC, ABDOMEN (WRVU 5.14) Social History Tobacco Use Types Packs/Day Years [...] on file documented as of this encounter Last Filed Vital Signs Vital Sign Reading Time Taken Comments Blood Pressure 126/76 07/18/2023 10:30 AM EST Pulse 83 07/18/2023 9:30 AM EST Temperature 36.3 ??C (97.3 ??F) 07/18/2023 1 0:30 AM EST Respiratory Rate 16 07/18/2023 10:3 0 AM EST Oxygen Saturation 96% 07/18/2023 10: 45 AM EST Inhaled Oxygen Concentration - - Weight 109.9 kg (242 lb 4.8 oz) 07/18/2023 6:15 AM EST Height 165.1 cm (5' 5) 07/18/2023 6:15 AM EST Body Mass Index 40.32 07/18/2023 6:15 AM EST documented in this encounter Discharge Instructions * Patient Instructions* Leonel Campbell MD - 07/18/2023 8:50 AM EST [facility] Department of Minimally Invasive Surgery Discharge Instructions CALL YOUR PHYSICIAN'S OFFICE IF: You have a fever greater than 101 degrees Farenheit (38.3C) within one month of your surgery. You have diarrhea or vomiting for >24 hours, stop having bowel movements and/or passing flatus, have pain with urination. You have worsening pain, not controlled with your pain medication. You develop redness, swelling, or new drainage from your wound. Today you had a diagnostic laparoscopy and upper endoscopy. There was a small internal hernia from your gastric bypass surgery that we repaired. There was no evidence of ulcer disease. Medications: [] Pain Control [] Non-narcotic pain medication - We recommend taking 650-1000mg every 4-6 hours for pain control. - Do not take more than 4,000mg (4g) of tylenol in 24 hours. In addition to these medications, non-opioid therapies and non-pharmacologic modalities such as heating pad, ice, and activity modification are recommended as appropriate for adjunct treatment of your pain. Driving Restrictions: - No driving if you are too sore from surgery to enter or exit your vehicle comfortably, or if you are too sore to easily check your blind spot. No driving while using narcotic pain medications. Shower: - It is ok to shower in two days (Saturday). You can shower per usual routine and let soapy water run over your incision. Pat incision dry with a clean, dry towel. Do not submerge the wound under water (no swimming or soaking) for at least 6 weeks, or until approved by your surgeon. Activity: - You should avoid any heavy lifting for about 4 weeks after surgery. -We recommend taking several slow, short walks each day for the first two weeks, and gradually increase your distance. We recommend at least 4 times a day. Wound/Incision Care: Closure: Your skin incisions are closed with steri strips and band aids. You may remove the band aids in two days. Leave the steri strips in place until they fall off in 7-10 days. Who to call? If you have concerns or questions: - During the day, it is best to call the General Surgery Clinic to speak with the Surgery nurses. The number is [phone]. - During the night or weekends call the [facility] merry go round operator at [phone] and ask to speak to the surgery resident completions manager for general surgery. Please note: Your surgeon may not be Stem Setter, especially during the night or on weekends, so be ready to describe yourself and your surgery when you call. Follow up appointments: Future Appointments Date Time Provider Department Center 08/20/2023 9:30 AM Toshia Byrd APRN [facility] SURG [facility] 09/06/2023 8:15 AM Jenni Brennan MD [facility] WEIGHT [facility] 09/30/2023 10:00 AM MAYDA, [facility] L Lab [address] [place] [address] [facility] 09/30/2023 11:00 AM Heidi South APRN [facility] SURG [facility] documented in this encounter Medications at Time of Discharge Medication Sig Dispensed Refills Start Date End Date gabapentin (Neurontin) 300 mg capsule Take 300 mg by mouth 2 times daily. 04/10/2023 calcium carbonate/vitamin D3 (CALCIUM WITH VITAMIN D ORAL) Take by mouth. cyanocobalamin, vitamin B-12, (VITAMIN B-12 ORAL) Take by mouth. multivitamin with minerals (One-A-Day) Tablet Take 1 tablet by mouth daily. ferrous sulfate (IRON ORAL) Take by mouth every other day. loratadine (Claritin) 10 mg Tablet Take 10 mg by mouth daily. 11/01/2022 traZODone (Desyrel) 50 mg Tablet Take 150 mg by mouth nightly as needed for Sleep. 06/29/2021 UNABLE TO FIND 2 tablets daily. Med Name: Bariatric multivitamin acetaminophen 500 mg Capsule Take by mouth 2 times daily. documented as of this encounter Progress Notes * Natalia Cuello RN - 07/18/2023 10:53 AM EST Patient alert and oriented, vital signs stable. Reviewed discharge instructions; patient and __Rodriguez verbalized understanding. Copy of instruction sheet with contact numbers for questions/concerns with __John . Pain assessment documented. Patient escorted out of department via wheelchair with ___LNA . documented in this encounter H&P Notes * Leonel Campbell MD - 07/18/2023 7:12 AM EST [facility] General Surgery History and Physical Tiffanie Monreal is a 38 y.o. female with a history of LRYGB in 2019 with recently reported abdominalpain and dark stools who presents today for diagnostic laparoscopy, endoscopy, colonoscopy. She reports that she did the miralax prep as instructed, but had minimal stool output. The patient reports that she has been well since the last clinic visit without significant changes to medical status. Denies new diagnoses or medication changes. Denies recent illness including fever/chills, cough/flu-like symptoms, and recent infection. Denies chest pain and shortness of breath. Signficant PM/SH Past Medical History: Diagnosis Date Anxiety Depression Obesity Past Surgical History: Procedure Laterality Date SECTION, LOW TRANSVERSE 2003 SECTION, LOW TRANSVERSE 2007 CHOLECYSTECTOMY, LAPAROSCOPIC HYSTERECTOMY PRO ADJACENT TISSUE TRANSFER/REARGMT TRUNK 10 CM/< Right 07/04/2021 ADJ.TISSUE TRANSFER, REARRANGEMENT, TRUNK,10SQ.CM OR LESS (WRVU 6.37) performed by Alfredo Torrez MD at [facility] OSC PRO EXCISE EXCESS SKIN TISSUE, ABDOMEN N/A 01/03/2021 PANNICULECTOMY performed by Beau Torrez MD at [facility] MAIN OR PRO LAP GASTRIC BYPASS/SHELBIE-EN-Y N/A 09/30/2018 @LAPAROSCOPIC GASTROPLASTY, (WRVU 29.4) performed by Jerica Bronson MD at [facility] MAIN OR PRO UPPER GI ENDOSCOPY, DIAGNOSTIC N/A 09/30/2018 ENDOSCOPY, UPPER GI, DIAGNOSTIC, WITH OR WITHOUT SPECIMENS [facility] PRO UPPER GI ENDOSCOPY, DIAGNOSTIC N/A 04/14/2020 EGD, UPPER GI ENDOSCOPY performed by Jerica Bronson MD at [facility] MAIN OR TUBAL LIGATION Bilateral 2007 Current Facility-Administered Medications: ceFAZolin (Ancef) 2 g vial attach to sodium chloride 0.9% 100 mL Mini-Bag Plus, 2 g, Intravenous, Q4H, Tawanna Moreno PA sodium chloride 0.9 % (flush) (BD PosiFlush Normal Saline 0.9) flush 5-20 mL, 5- 20 mL, Intravenous,Q1 Min PRN, Shan Huerta MD lidocaine (Xylocaine) 1% (10 mg/mL) injection 3 mg, 0.3 mL, Subcutaneous, Once PRN, Shan Huerta MD lactated ringers infusion, 1,000 mL, Intravenous, Continuous, Shan Huerta MD Patient Vitals for the past 24 hrs: Temp Pulse Resp BP SpO2 O2 Device 07/18/23 0615 36.8 ??C (98.2 ??F) 65 18 109/75 100 % RA Physical Exam Gen: alert and oriented, laying comfortably in bed Neuro: no focal deficits CV: regular rate and rhythm Pulm: breathing comfortably on room air GI: Soft, nondistended, nontender Assesssment/Plan: We will proceed with the diagnostic laparoscopy and upper endoscopy. Colonoscopy will be rescheduled as there was inadequate prep to perform the procedure today. - Has been appropriately consented and is ready to proceed. Leonel Campbell MD 07/18/2023 documented in this encounter Miscellaneous Notes * Op Note - Ren Sandhu MD - 07/18/2023 9:18 AM EST [facility] Operative Note Patient Name: Tiffanie Monreal : [id number] MR#: [id number] Case Date: 07/18/2023 Surgeon: Surgeon(s) and Role: * Jerica Bronson MD - Primary * Leonel Campbell MD - Resident - Assisting * Ren Sandhu MD - Fellow Preoperative diagnosis: s/p bariatric surgery Postoperative diagnosis: s/p bariatric surgery Procedure(s) (LRB): LAPAROSCOPY, DIAGNOSTIC, ABDOMEN (WRVU 5.14) (N/A) EGD, UPPER GI ENDOSCOPY (WRVU 2.09) (N/A) Findings: Diagnostic laparoscopy with small opening at Bourne's defect; repaired. Otherwise normal gastric bypass anatomy with no abnormalities noted. Upper endoscopy with no evidence of stenosis and no ulcerative disease. Anesthesia: General Estimated Blood Loss: 1 mL Specimens removed during surgery: None Drains: none Surgical Closure: Primary Closure - skin incision is completely closed without any wires, rinku, drains or other devices Disposition: awakened from anesthesia, extubated and taken to the recovery room in a stable condition, having suffered no apparent untoward event. Condition: doing well without problems (Please see the Surgical Encounter Summary for any Implant and Specimen details pertinent to this patient.) HPI/Surgical Indications: Tiffanie Monreal is a 38 y.o. female with a history of LRYGB in 2019 with recently reported abdominal pain and dark stools who presents today for diagnostic laparoscopy, endoscopy, colonoscopy. Colonoscopy rescheduled due to inadequate prep. Procedure Description: The patient was brought to the operating room and positioned supine on the operating room table. 40 mg of Lovenox was administered preoperatively. Following induction of general endotracheal anesthesia, SCDs were placed for perioperative VTE prophylaxis and 2 g of Ancef was given as perioperative antibiotic prophylaxis. The abdomen was prepped and draped in usual sterile fashion. A standard surgical safety timeout was performed. Entry to the abdomen was gained via Optiview technique. About 15 cm cephalad to the xiphoid processjust to the left of midline, a 5 mm skin incision was made after infiltration with 0.25% Sensorcaine. A 5 mm port was placed under direct visualization using a 5 mm 0 degree laparoscope. Pneumoperitoneum was established to 15 mmHg which the patient tolerated without issue. Inspection revealed no injury to the underlying bowel. We then proceeded to place two 5 mm working ports in the right upper quadrant under direct visualization. The bypass anatomy was then carefully inspected. There were no adhesions in the area of the pouch. The Shelbie limb was run distally down to the JJ anastomosis; no abno rmalities were noted. Barroso's defect was open with some omentum herniated through. The JJ mesenteric defect was closed. There were some thin adhesions of the blind end of the biliopancreatic limb to the Shelbie limb. The BP limb was run proximally and was normal in appearance. The common channel was then run distally for the majority of its length; there was no abnormalities noted. The colon was noted to be fairly redundant, but otherwise appeared normal. We then proceeded to close Barroso's defect using a running nonabsorbable 3-0 V-loc suture. An additional 5 mm working port was placed in the left upper quadrant to facilitate retraction and exposure. Pneumoperitoneum was then released and the ports were removed under direct visualization. Each of the port sites was closed with 4-0 Monocryl subcuticular sutures. Dressings of Steri-Strips and Band-Aids were placed. We then proceeded with an upper endoscopy. The gastroscope was inserted through the oropharynx and passed into the esophagus. The esophagus was mildly dilated but was otherwise normal in appearance. There was no irregularity of the Z-line. The gastric pouch appeared normal in appearance with a patent GJ anastomosis and no evidence of ulceration. The proximal Shelbie limb appeared normal. The Shelbie limb and pouch were then desufflated and the gastroscope was removed. All counts were correct at the conclusion of the procedure. The patient was awakened from anesthesia, extubated, and transferred to recovery room in stable condition having suffered no untoward event. Dr. Bronson was present for all critical portions of the procedure. Surgical Infection Prevention Bundle Used? N/A Ren Sandhu MD Associated attestation - Jerica Bronson MD - 07/18/2023 11:58 AM EST Attestation: Case Date: 07/18/2023 I was present and I participated during the entire procedure (does not need to include opening and closing). JERICA BRONSON MD 07/18/2023 * Brief Op Note - Jerica Bronson MD - 07/18/2023 8:50 AM EST Brief Operative Note Patient Name: Tiffanie Monreal : [id number] MR#: [id number] Case Date: 07/18/2023 Surgeon: Surgeon(s) and Role: * Jerica Bronson MD - Primary * Leonel Campbell MD - Resident - Assisting * Ren Sandhu MD - Fellow - Assisting Preoperative diagnosis: s/p bariatric surgery Postoperative diagnosis: s/p bariatric surgery Procedure(s) (LRB): LAPAROSCOPY, DIAGNOSTIC, ABDOMEN (WRVU 5.14) (N/A) EGD, UPPER GI ENDOSCOPY (WRVU 2.09) (N/A) Anesthesia: General Findings: Diagnostic laparoscopy with small opening at Bourne's defect; repaired. Otherwise normal gastric bypass anatomy with no abnormalities noted. Upper endoscopy with no evidence of stenosis and no ulcerative disease. Complications: None Estimated Blood Loss: 1 mL Specimens removed during surgery: None Fluids: Intraprocedure Crystalloid Total Intake ceFAZolin (Ancef) 2 g vial attach to sodium chloride 0.9% 100 mL Mini-Bag Plus 100.00 mL Total Intake 100 mL Output Blood Loss 1 mL Total Output 1 mL Net Net Volume 99 mL PRBCs: none (See Anesthesia Record/Report for Other Blood Products) Urine Output: (no urine output recorded) Drains: None Disposition: awakened from anesthesia, extubated and taken to the recovery room in a stable condition, having suffered no apparent untoward event. Condition: doing well without problems (Please see the Surgical Encounter Summary for any Implant and Specimen details pertinent to this patient.) Surgical Infection Prevention Bundle Used? N/A documented in this encounter Plan of Treatment Upcoming Encounters Date Type Department Care Team (Late st Contact Info) Description 06/02/2024 8:00 AM EDT Office Visit [place] [phone] Julienne Lacey APRN [facility] GASTROENTEROLOGY [place], [place] [id number] 07/24/2024 1:30 PM EST Office Visit Weight and [place] [address] Jenni Brennan MD [facility] [address] [facility] [place] [address] documented as of this encounter Procedures Procedure Name Priority Date/Time Associated Diagnosis Comments Upper GI Endoscopy, Diagnostic (18689) Yes 07/18/2023 7:32 AM EST s/p bariatric surgery Lap, Diagnostic Abdomen (62576) Yes 07/18/2023 7:32 AM EST s/p bariatric surgery POCT GLUCOSE Routine 07/18/2023 6:44 AM EST documented in this encounter Results * POCT Glucose (07/18/2023 6:44 AM EST) Glucose, POC 91 65 - 199 mg/dL [facility] Comment: Supplemental ranges: <140 mg/dL before meals <180 mg/dL all other times of the day Blood 07/18/2023 6:44 AM EST 07/18/2023 6:44 AM EST Jerica Bronson MD POINT OF CARE TEST O RDERABLES [facility] [place] [address] documented in this encounter Visit Diagnoses Not on filedocumented in this encounter Administered Medications Inactive Administered Medications - up to 3 most recent administrations Medication Order MAR Action Action Date Dose Rate Site acetaminophen (Tylenol) 325 mg tablet 1 dose, Starting on Sarah 07/18/23 at 1025, Until Sarah 07/18/23 at 1031, Natalia Cuello: cabinet override acetaminophen (Tylenol) tablet 975 mg 975 mg, Oral, EVERY 6 HOURS SCHEDULED, First dose on Sarah 07/18/23 at 1200, Until Discontinued, Maximum dose of acetaminophen is 4,000 mg from all sources in 24 hours. When ordered for pain, acetaminophen should be given even when other ordered pain medications are indicated., Routine Given 07/18/2023 10:31 AM EST 975 mg BUpivacaine (pf) (Marcaine) (2.5 mg/mL) 0.25% injection PRN, Starting on Sarah 07/18/23 at 0802, Until Sarah 07/18/23 at 1317, Intra-Operative (Intra-Procedure), Routine Given 07/18/2023 8:02 AM EST 15 mLs 19- Surgical Site enoxaparin (Lovenox) (40 mg/0.4 mL) subcutaneous injection 40 mg 40 mg, Subcutaneous, ONCE, 1 dose, On Sarah 07/18/23 at 0645, Day of Surgery (Day of Procedure), Routine Given 07/18/2023 6:54 AM EST 40 mg HYDROmorphone (Dilaudid) (0.2 mg/1 mL) injection syringe 0.4 mg 0.4 mg, Intravenous, EVERY 10 MIN PRN, Starting on Sarah 07/18/23 at 0908, Until Sarah 07/18/23 at 1011, Pain, For Moderate to Severe Pain (6-10 out of 10), Hold for respiratory rate less than 10 per minute. Maximum dose 3 mg over one hour including administrations in the OR. If multiple pain medications are ordered, start with HYDROmorphone or morphine and use fentaNYL for breakthrough pain., PACU Recovery, Routine Given 07/18/2023 9:43 AM EST 0.4 mg Given 07/18/2023 9:24 AM EST 0.4 mg documented in this encounter Active and Recently Administered Medications Times are shown in EST. Scheduled Medication Order 07/16/2023 07/17/202307/1807/18/2023 acetaminophen (Tylenol) tablet 975 mg 975 mg, Oral, EVERY 6 HOURS SCHEDULED, First dose on Sarah 07/18/23 at 1200, Until Discontinued, Maximum dose of acetaminophen is 4,000 mg from all sources in 24 hours. When ordered for pain, acetaminophen should be given even when other ordered pain medications are indicated., Routine 1031 (Given - Provid er: Natalia Cuello, RN) ceFAZolin (Ancef) 2 g vial attach to sodium chloride 0.9% 100 mL Mini-Bag Plus (COMPLETED) 2 g, Intravenous, EVERY 4 HOURS, 1 dose, First dose on Sarah 07/18/23 at 0645, Administer over 30 Minutes, Intra-Operative (Intra-Procedure), Indication for (Active or Suspected): Prophylaxis 0741 (New Bag - Prov ider: Norbert Bass) enoxaparin (Lovenox) (40 mg/0.4 mL) subcutaneous injection 40 mg (COMPLETED) 40 mg, Subcutaneous, ONCE, 1 dose, On Sarah 07/18/23 at 0645, Day of Surgery (Day of Procedure), Routine 0654 (Given - Provid er: Edyta Zavala RN) PRN Medication Order 07/16/2023 07/17/2023 07/18/2023 BUpivacaine (pf) (Marcaine) (2.5 mg/mL) 0.25% injection (CANCELED) PRN, Starting on Sarah 07/18/23 at 0802, Until Sarah 07/18/23 at 1317, Intra-Operative (Intra-Procedure), Routine 0802 (Given - Provid er: Ren Sandhu MD) HYDROmorphone (Dilaudid) (0.2 mg/1 mL) injection syringe 0.4 mg (CANCELED)(Linked Group 1) 0.4 mg, Intravenous, EVERY 10 MIN PRN, Starting on Sarah 07/18/23 at 0908, Until Sarah 07/18/23 at 1011, Pain, For Moderate to Severe Pain (6-10 out of 10), Hold for respiratory rate less than 10 per minute. Maximum dose 3 mg over one hour including administrations in the OR. If multiple pain medications are ordered, start with HYDROmorphone or morphine and use fentaNYL for breakthrough pain., PACU Recovery, Routine 09 (Given - Provid er: Natalia Cuello RN)0943 (Given - Provider: Natalia Cuello RN) Linked Groups Order Group 1: HYDROmorphone (Dilaudid) (0.2 mg/1 mL) injection syringe 0.2 mg (CANCELED) 0.2 mg, Intravenous, EVERY 10 MIN PRN, Starting on Sarah 12 at 0908, Until Sarah 12 at 1011, Pain, For Mild to Moderate Pain (1-5 out of 10), Hold for respiratory rate less than 10 per minute. Maximum dose 3 mg over one hour including administrations in the OR. If multiple pain medications are ordered, start with HYDROmorphone or morphine and use fentaNYL for breakthrough pain., PACU Recovery, Routine Or HYDROmorphone (Dilaudid) (0.2 mg/1 mL) injection syringe 0.4 mg (CANCELED)Jump to med 0.4 mg, Intravenous, EVERY 10 MIN PRN, Starting on Sarah 12 at 0908, Until Sarah 12 at 1011, Pain, For Moderate to Severe Pain (6-10 out of 10), Hold for respiratory rate less than 10 per minute. Maximum dose 3 mg over one hour including administrations in the OR. If multiple pain medications are ordered, start with HYDROmorphone or morphine and use fentaNYL for breakthrough pain., PACU Recovery, Routine documented in this encounter Care Teams Control Clerk Food And Beverage Relationship Specialty Start Date End Date Saumya Felipe APRN [address] [place] [address] PCP - General Family Medicine 12/31/22 documented as of this encounter
--- OUTSIDE RECORDS SUMMARY | 2024-05-25 14:49 | XMS_ITS | Encounter Summary ---
Author Organization [facility] [place] [address] Care Team Providers Care Record Tabulating Clerk Name Role Phone Saumya Felipe APRN Primary Care Provider [phone] Reason for Visit * Reason Comments Follow Up Surgery Encounter Details Date Type Department Care Team (Late st Contact Info) Description 08/20/2023 9:30 AM EST Office [place] [address] Toshia Byrd APRN [facility] [place] [address] Surgery follow-up Social History Tobacco Use Types Packs/Day Years [...] Sign Reading Time Taken Comments Blood Pressure 148/88 08/20/2023 9:20 AM EST Pulse 66 08/20/2023 9:20 AM EST Temperature 36.3 ??C (97.4 ??F) 08/20/2023 9:20 AM ES T Respiratory Rate 18 08/20/2023 9:20 AM EST Oxygen Saturation 100% 08/20/2023 9:20 AM EST Inhaled Oxygen Concentration - - Weight - - Height - - Body Mass Index - - documented in this encounter Progress Notes * Toshia Byrd APRN - 08/20/2023 9:30 AM EST Tiffanie Monreal presents to clinic for surgical follow up. Tiffanie is a 38 y.o. female with a history of LRYGB in 2019 with recently reported abdominal pain anddark stools who presented 07/18/23 for diagnostic laparoscopy, endoscopy, colonoscopy. Colonoscopy rescheduled due to inadequate prep this will be done on of this week. 07/18/23: Diagnostic abdominal laparoscopy, EGD, upper GI endoscopy-Trus Findings: Diagnostic laparoscopy with small opening at Bourne's defect; repaired. Otherwise normal gastric bypass anatomy with no abnormalities noted. Upper endoscopy with no evidence of stenosis and no ulcerative disease. Feels pretty well, no fevers chills, abdominal pain, nausea or vomiting. She is eating, her bowels are functioning and she is voiding without difficulty. She is pleased with her progress. EXAM: Tiffanie is well appearing, she moves easily about the exam room and onto the exam table. Her abdomen is soft and non tender, her trocar sites are benign and nicely healed. Impression/plan: Doing well, no abdominal or infectious symptoms, incisions healed. No activity restrictions going forward. We will see Tiffanie in clinic on an as needed basis we are happy to see her back should anything specific arise or should there be any question or concern documented in this encounter Plan of Treatment Upcoming Encounters Date Type Department Care Team (Late st Contact Info) Description 06/02/2024 8:00 AM EDT Office Visit [place] [address] Julienne Lacey APRN [facility] [place] [address] 07/24/2024 1:30 PM EST Office Visit Weight [place] [phone] Jenni Brennan MD [facility] [address] [facility] [place] [address] documented as of this encounter Visit Diagnoses Diagnosis Surgery follow-up Follow-up examination, following unspecified surgery documented in this encounter Care Teams Record Tabulating Clerk Relationship Specialty Start Date End Date Saumya Felipe APRN [address] [place] [address] PCP - General Family Medicine 12/31/22 documented as of this encounter
--- OUTSIDE RECORDS SUMMARY | 2024-05-25 14:49 | XMS_ITS | Encounter Summary ---
Author Organization [facility] Address [facility] [place] [address] Care Team Providers Care Belly Roller Name Role Phone Saumya Felipe APRN Primary Care Provider [phone] Encounter Details Date Type Department Care Team (Latest Contact Info) Description 09/11/2023 Travel Social History Tobacco Use Types Packs/Day [...] 8:00 AM EDT Office [place] [phone] Julienne Lacey APRN [facility] [place] [address] 07/24/2024 1:30 PM EST Office Visit [place] [phone] Jenni Brennan MD [facility] [address] [facility] [address] documented as of this encounter Visit Diagnoses Not on filedocumented in this encounter Care Teams Belly Roller Relationship Specialty Start Date End Date Saumya Felipe APRN [address] [place] [address] PCP - General Family Medicine 12/31/22 documented as of this encounter
--- OUTSIDE RECORDS SUMMARY | 2024-05-25 14:49 | XMS_ITS | Encounter Summary ---
[facility] [place] [place] [address] Care Team Providers Care Cartography Supervisor Name Role Phone Matteo Saumya LARA Primary Care Provider [phone] Reason for Visit * Auth/Cert (Routine) Specialty Diagnoses / Procedures Referred By Contac t Referred To Contact Diagnoses brbpr Procedures PRO COLONOSCOPY, DIAGNOSTIC PRO COLONOSCOPY, BIOPSY PRO COLONOSCOPY, REMV LESN, SNARE PRO ANES, LWR INTESTINE, NOS COLONOSCOPY, DIAGNOSTIC (WRVU 3.26) Ziyad Riggins MD [facility] [place] [address] [facility] Referral ID Status Reason Start Date Expiration Date Visits Re quested Visits Authorized [id number] 1 1 Encounter Details Date Type Department Care Team (Late st Contact Info) Description 08/22/2023 1:26 PM EST Anesthesia [place] [address] Vel Warren MD [facility] [place] [address] Anesthesia Record Procedure Summary Procedure Name Responsible Anesthesiologist Anesthesia Start Time Anesthesia Stop Time COLONOSCOPY, DIAGNOSTIC (WRVU 3.26) (Trunk) Vel Warren MD 08/22/23 1326 08/22/23 1349 Events Date Time Event Comment 08/22/2023 1254 1326 AN Verify 1326 Start 1326 An Start Data 1329 An Induction 1329 Anesthesia Ready 1340 Procedure Start 1349 an stop data 1349 Recovery or ICU Handoff Corine ent care was transferred to the destination unit staff after review of the patient's medical history, current anesthetic/surgical status and plan, according to the Provider Handoff Checklist. 1349 Stop Meds Name Total Propofol 120 mg Propofol INF 395.28 mg lactated ringers infusion 0 mL * Agents Name O2 Air N2O Sevoflurane (et) O2 Auxiliary Flowmeter 1 * Blood No blood administrations on file. Lines, Drains, and Airways Type Details Placement Removal Incision 07/18/23; 0802; abdo men; laparoscopic punctures (specify) 07/18/23 0802 by Kezia Sheppard RN PIV 08/22/23; 1251; cpas-tbx-tujekt catheter system; 22 gauge; median cubital vein (antecubital fossa), right; Anatomical Landmarks; US Not Used; Debbie Johnston RN; distraction, tolerated well; 0; 08/22/23; 1419 08/22/23 1251 by Debbie Johnston RN 08/22/23 1419 by Anne Bernal RN documented in this encounter Social History Tobacco Use Types Packs/Day Years [...] on file documented as of this encounter OR Notes * Anesthesia Postprocedure Evaluation - Vel Warren MD - 08/22/2023 2:33 PM EST Department of Anesthesiology Post-procedure Note Patient: Tiffanie Monreal Procedure Summary Date: 08/22/23 Room / Location: [facility] ENDO 6 / [facility] ENDOSCOPY Anesthesia Start: 1326 Anesthesia Stop: 134 Procedure: COLONOSCOPY, DIAGNOSTIC (WRVU 3.26) (Trunk) Diagnosis: BRBPR (bright red blood per rectum) (brbpr) Surgeons: Ziyad Riggins MD Responsible Provider: Vel Warren MD Anesthesia Type: MAC ASA Status: 3 All Anesthesia Providers: Anesthesiologist: Vel Warren MD CONFERENCE INTERPRETER: Sally Atwood CRNA Vitals Value Taken Time BP 125/77 08/22/23 1410 Temp Pulse Resp 18 08/22/23 1410 SpO2 100 % 08/22/23 1416 Pain Level 0 08/22/23 1410 Vitals shown include unfiled device data. Patient Location: PACU/[facility] Level of Consciousness: Awake and Alert Pain Management: Satisfactory Analgesia PONV: None Cardiovascular Status: At Baseline and Hemodynamically Stable Respiratory Status: At Baseline and Room Air Postoperative Fluid Status: Intravascular EUvolemia Possible Anesthetic Complications: NONE apparent at time of evaluation Final Primary Anesthesia Type: MAC (The anesthetic type performed was the same as planned.) Comments: Vel Warren MD * Anesthesia Preprocedure Evaluation - Vel Warren MD - 08/21/2023 5:03 PM EST Pre-Anesthesia Evaluation for: Tiffanie Monreal a 38 y.o. female. Procedure(s): COLONOSCOPY, DIAGNOSTIC (WRVU 3.26) Patient Active Problem List Diagnosis Date Noted ??? Abdominal pannus 11/10/2020 ??? Bariatric surgery status: 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 06/18/2019 ??? 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 Insomnia 07/29/2015 ??? Major depressive disorder 07/29/2015 ??? Anxiety disorder 07/29/2015 ??? Breast hypertrophy 10/30/2011 Past Medical History: Diagnosis Date ??? Anxiety ??? Depression ??? Obesity Past Surgical History: Procedure Laterality Date ??? SECTION, LOW TRANSVERSE 2003 ??? SECTION, LOW TRANSVERSE 2007 ??? CHOLECYSTECTOMY, LAPAROSCOPIC ??? HYSTERECTOMY ? ? PRO ADJACENT TISSUE TRANSFER/REARGMT TRUNK 10 CM/< Right 07/04/2021 ADJ.TISSUE TRANSFER, REARRANGEMENT, TRUNK,10SQ.CM OR LESS (WRVU 6.37) performed by Alfredo Torrez MD at [facility] OSC ??? PRO EXCISE EXCESS SKIN TISSUE, ABDOMEN N/A 01/03/2021 PANNICULECTOMY performed by Beau Torrez MD at [facility] OR ??? PRO LAP GASTRIC BYPASS/SHELBIE-EN-Y N/A 09/30/2018 @LAPAROSCOPIC GASTROPLASTY, (WRVU 29.4) performed by Jerica Dubose MD at [facility] OR ??? PRO LAP, DIAGNOSTIC ABDOMEN N/A 07/18/2023 LAPAROSCOPY, DIAGNOSTIC, ABDOMEN (WRVU 5.14) performed by Jerica Dubose MD at [facility] OR ??? PRO UPPER GI ENDOSCOPY, DIAGNOSTIC N/A 09/30/2018 ENDOSCOPY, UPPER GI, DIAGNOSTIC, WITH OR WITHOUT SPECIMENS performed by Jerica Dubose MD at [facility] OR ??? PRO UPPER GI ENDOSCOPY, DIAGNOSTIC N/A 04/14/2020 EGD, UPPER GI ENDOSCOPY performed by Jerica Dubose MD at [facility] OR ??? PRO UPPER GI ENDOSCOPY, DIAGNOSTIC N/A 07/18/2023 EGD, UPPER GI ENDOSCOPY (WRVU 2.09) performed by Jerica Dubose MD at [facility] OR ??? TUBAL LIGATION Bilateral 2007 Social History Tobacco Use ??? Smoking status: Former Packs/day: 0.50 Years: 2.00 Additional pack years: 0.00 Total pack years: 1.00 Types: Cigarettes Quit date: 03/27/2008 Years since quittin.4 ??? Smokeless tobacco: Never Substance Use Topics ??? Alcohol use: Yes Alcohol/week: 0.0 standard drinks of alcohol Comment: once per month Social History Substance and Sexual Activity Drug Use No Allergies Allergen Reactions ??? Cough Syrup [Guaifenesin] Anaphylaxis ??? Spider Venom Other (See Comments) Ask patient. ??? Kiwi Other reaction(s): Swelling/Edema ??? Dextromethorphan Hbr Other reaction(s): Anaphylaxsis ??? Doxylamine Succinate Other reaction(s): Anaphylaxsis ??? Pseudoephedrine Hcl Other reaction(s): Anaphylaxsis Medications: MAR and/or home medications have been reviewed. Physical Exam: Preprocedure Vitals Current as of 08/21/23 1703 No BP, pulse, respiration, SpO2, or temperature recorded. Height: Weight: BMI: IBW: Airway Assessment: Mallampati: II TM distance: >3 FB Neck ROM: full Cardiovascular Assessment: Rhythm: regular Rate: normal Pulmonary Assessment: unlabored breathing Dental Assessment: (+) lower dentures and upper dentures Misc Assessment: IV access: Peripheral line Last Filed Perioperative Cognitive Screening None Anesthesia Plan: ASA 3 MAC, with a(n) intravenous induction 38 yo F for Colonoscopy. Rectal bleeding, Morbid Obesity/ESTHELA, Depression/Anxiety Allergy to Guaifenesin, Dextromethorphan, Doxylamine, Pseudoephedrine Plan IV Propofol Region - Other Informed Consent: Anesthetic plan and risks discussed with patient and spouse. Plan discussed with CONFERENCE INTERPRETER and attending. Anesthesia Screening documented in this encounter Plan of Treatment Upcoming Encounters Date Type Department Care Team (Late st Contact Info) Description 06/02/2024 8:00 AM EDT Office [place] [address] Julienne Lacey APRN [facility] [place] [address] 07/24/2024 1:30 PM EST Office Visit [place] [phone] Jenni Brennan MD [facility] [address] [facility] [address] documented as of this encounter Visit Diagnoses Not on filedocumented in this encounter Administered Medications Inactive Administered Medications - up to 3 most recent administrations Medication Order MAR Action Action Date Dose Rate Site lactated ringers infusion 100 mL/hr, Intravenous, CONTINUOUS, Starting on Sarah 08/22/23 at 1300, Until Sarah 08/22/23 at 1405, Endoscopy (Day of Procedure) Restarted 08/22/2023 1:26 PM EST New Bag 08/22/2023 12:52 PM EST 100 mL/hr 100 mL/hr propofoL (Diprivan) (10 mg/mL) infusion Intravenous, CONTINUOUS PRN, Starting on Sarah 1/11/24 at 1329, Until Sarah 08/22/23 at 1349, Anesthesia Intra-op, Routine New Bag 08/22/2023 1:29 PM EST 200 mcg/kg/min 131.76 mL/hr propofoL (Diprivan) 10 mg/mL bolus injection (Anesthesia) Intravenous, PRN, Starting on Sarah 08/22/23 at 1329, Until Sarah 08/22/23 at 1349, Anesthesia Intra-op Given 08/22/2023 1:39 PM EST 50 mg Given 08/22/2023 1:29 PM EST 70 mg documented in this encounter Care Teams Cartography Supervisor Relationship Specialty Start Date End Date Saumya Felipe APRN [address] [place] [address] PCP - General Family Medicine 12/31/22 documented as of this encounter
--- OUTSIDE RECORDS SUMMARY | 2024-05-25 14:49 | XMS_ITS | Encounter Summary ---
Author Organization [facility] [address] Care Team Providers Care Special Population Paraprofessional Name Role Phone Matteo Saumya LARA Primary Care Provider Encounter Details Date Type Department Care Team (Latest Contact Info) Description 10/30/2023 5:00 PM EDT Laboratory Appointment Lab [address] [place] [phone] Class 2 obesity with body mass index [...] on file documented as of this encounter Progress Notes * Jenni Brennan MD - 10/30/2023 5:00 PM EDT Kieran Moreno, I reviewed your recent labwork. Everything looks good. We can increase the Qsymia. I will send a prescription for the increased dose and recheck labs in 5- [address] Brennan documented in this encounter Plan of Treatment Upcoming Encounters Date Type Department Care Team (Late st Contact Info) Description 06/02/2024 8:00 AM EDT Office Visit [place] [phone] Julienne Lacey APRN [facility] DR GASTROENTEROLOGY [place], [place] [id number] 07/24/2024 1:30 PM EST Office Visit Weight [place] [address] Jenni Brennan MD [facility] [address] [facility] [place] [address] documented as of this encounter Procedures Procedure Name Priority Date/Time Associated Diagnosis Comments BASIC METABOLIC PANEL Routine 10/30/2023 5:02 PM EDT Class 2 obesity with body mass index (BMI) of 39.0 to 39.9 in adult, unspecified obesity type, unspecified whether serious comorbidity present documented in this encounter Results * (ABNORMAL) Basic Metabolic Panel (non-fasting) (10/30/2023 5:02 PM EDT) Glucose 83 65 - 199 mg/dL [facility] Comment:Diabetes: >=200 mg/d L plus symptoms Blood Urea Nitrogen 11 8 - 18 mg/dL [facility] Creatinine 0.63(L) 0.70 - 1.20 mg/dL [facility] Sodium 141 135 - 145 mmol/L [facility] Potassium 4.1 3.5 - 5.0 mmol/L [facility] Comment: Please note: ??Patients with WBC >100,000 may have falsely elevated Potassium levels. ??For accurate Potassium quantification in these patients send serum separator tube (gold top) for subsequent determinations. ??Contact the Clinical Chemistry Laboratory if there are any questions. Chloride 109(H) 98 - 107 mmol/L [facility] Carbon Dioxide 24 22 - 31 mmol/L [facility] Anion Gap 8 5 - 15 mmol/L [facility] Calcium 9.7 8.5 - 10.5 mg/dL [facility] Est Glomerular Filtration Rate 116 >=60 mL/min/1. 73 m?? [facility] Comment: This patient's estimated GFR was [...] urine creatinine clearance. Assignment of CKD stage 1-5 for patients with an eGFR near the transition point between stages may be based on clinical assessment of muscle mass and symptoms in addition to eGFR. Blood 10/30/2023 5:02 PM EDT 10/30/2023 5:42 PM EDT Narrative Resulting Agency Comment Spec In Lab Jenni Brennan MD CHEMISTRY ORDERABLES [facility] [place] [address] documented in this encounter Visit Diagnoses Diagnosis Class 2 obesity with body mass index (BMI) of 39.0 to 39.9 in adult, unspecified obesity type, unspecified whether serious comorbidity present documented in this encounter Care Teams Special Population Paraprofessional Relationship Specialty Start Date End Date Saumya Felipe APRN [address] [place] [address] PCP - General Family Medicine 12/31/22 documented as of this encounter
--- OUTSIDE RECORDS SUMMARY | 2024-05-25 14:49 | XMS_ITS | Encounter Summary ---
Author Organization [facility] [place] [address] Care Team Providers Care Farmworker Diversified Crops Name Role Phone Saumya Felipe APRN Primary Care Provider [phone] Encounter Details Date Type Department Care Team (Late st Contact Info) Description 10/31/2023 Orders Only [place] [phone] Jenni Brennan MD [facility] [address] [facility] [place] [address] Class 2 obesity with body mass index [...] 8:00 AM EDT Office [place] [phone] Julienne Lacey APRN [facility] [place] [address] 07/24/2024 1:30 PM EST Office Visit [place] [address] Jenni Brennan MD [facility] [address] [facility] [place] [address] Scheduled Orders Name Type Priority Associated Diagnoses Orde r Schedule Basic Metabolic Panel (non-fasting) Lab Routine Class 2 obesity with body mass index (BMI) of 39.0 to 39.9 in adult, unspecified obesity type, unspecified whether serious comorbidity present Expected: 10/31/2023, Expires: 10/30/2024 documented as of this encounter Visit Diagnoses Diagnosis Class 2 obesity with body mass index (BMI) of 39.0 to 39.9 in adult, unspecified obesity type, unspecified whether serious comorbidity present documented in this encounter Care Teams Farmworker Diversified Crops Relationship Specialty Start Date End Date Saumya Felipe APRN [address] [place] [address] PCP - General Family Medicine 12/31/22 documented as of this encounter
--- OUTSIDE RECORDS SUMMARY | 2024-05-25 14:49 | XMS_ITS | Encounter Summary ---
Author Organization [facility] Address [facility] [place] [address] Care Team Providers Care Zoology Teacher Name Role Phone Saumya Felipe APRN Primary Care Provider [phone] Encounter Details Date Type Department Care Team (Late st Contact Info) Description 07/22/2023 Telephone [place] [phone] Divya Conteh Social History Tobacco Use Types Packs/Day Years [...] on file documented as of this encounter Miscellaneous Notes * Telephone Encounter - Divya Conteh - 07/22/2023 11:32 AM EST Tiffanie Monreal [id number] Diagnosis/Indication: brbpr Please review patient chart to confirm if previous Endoscopy procedure was performed within system. If yes, take note of Anesthesia type used. If previous procedure found, and with MAC/propofol Anesthesia support was used, schedule this procedure with Anesthesia and skip the Anesthesia portion of questions. If not performed within system, not performed at all, or performed with IVCS, ask Anesthesia questions. SCHEDULING QUESTIONS (ask all patient these questions) Have you ever had a/an Colonoscopy before? Yes: Date [facility] 2016 If yes, did you have any problems with the procedure (such as waking up during the procedure, pain or difficulties afterwards, etc.)? No What type of sedation was used: Other: unkown Do you take any blood thinners or have you been diagnosed with a bleeding disorder that increases your risk of bleeding with procedures? No Do you have a Pacemaker or Defibrillator device? If yes, send pool message to Cardiology with patient information and date or procedure. No Are you a diabetic? If yes, call PCP/managing provider to discuss use of prep and any questions or concerns related to. No Do you take any iron supplements or vitamins that contain iron? Yes Do you have a preference regarding the gender of your provider? No ANESTHESIA QUESTIONS (YES to any question, please book with Anesthesia support) Have you ever been diagnosed with Pulmonary Hypertension and/or Congential Heart Disease? No Have you been diagnosed with A-Fib (atrial fibrillation) that is NOT being well controled with medications? No Have you ever had an allergic or adverse reaction to Fentanyl or Versed? No Have you had a problem with sedation or anesthesia? (Waking up during procedure, extreme confusion after, etc.) No Do you have a diagnosis of Obstructive Sleep Apnea that requires the use of a c- pap machine? No Do you use an oxygen tank at home? No Do you use a rescue inhaler more than twice per day? (COPD, severe asthma) No Do you experience breathing problems when you lay flat for a period of time? No Do you take prescription narcotic pain medications, including suboxone or methodone? No SCHEDULING CONFIRMATIONS: Please note any and all parts of your conversation with the patient here. We offer all new patients an opportunity to have an appointment with one of our associate care providers to learn more about your upcoming procedure, ask questions and get answers. These appointmentsare offered via telehealth. Would you be interested in scheduling this appointment? (Only ask if NEW referral patient; skip this question if [facility] provider ordered the procedure.) No Is there any other information or concerns you would like to us to share with your care team in relation to your upcoming scheduled procedure? No You must have a responsible constitution party who will drive you to your procedure, stay on campus for the entire duration of your procedure, and drive you home from your procedure. Who will likely be your hi low truck driver for the procedure? *Please Verify the height and weight, and adjust if height and/or weight have changed* Estimated body mass index is 40.32 kg/m?? as calculated from the following: Height as of 07/18/23: 165.1 cm (5' 5). Weight as of 07/18/23: 109.9 kg (242 lb 4.8 oz). Age:38 y.o. documented in this encounter Plan of Treatment Upcoming Encounters Date Type Department Care Team (Late st Contact Info) Description 06/02/2024 8:00 AM EDT Office [place] [phone] Julienne Lacey APRN [facility] [place] [address] 07/24/2024 1:30 PM EST Office Visit [place] [phone] Jenni Brennan MD [facility] [address] [place] [address] documented as of this encounter Visit Diagnoses Not on filedocumented in this encounter Care Teams Zoology Teacher Relationship Specialty Start Date End Date Saumya Felipe APRN [address] [place] [address] PCP - General Family Medicine 12/31/22 documented as of this encounter
--- OUTSIDE RECORDS SUMMARY | 2024-05-25 14:49 | XMS_ITS | Encounter Summary ---
Author Organization Formerly [facility] Address [facility] [place] [address] Care Team Providers Care Manager Investment Name Role Phone Saumya Felipe APRN Primary Care Provider [phone] Encounter Details Date Type Department Care Team (Latest Contact Info) Description 01/22/2024 Travel Social History Tobacco Use Types Packs/Day [...] 8:00 AM EDT Office [place] [phone] Julienne Lacey APRN [facility] [place] [address] 07/24/2024 1:30 PM EST Office Visit Weight [place] [phone] Jenni Brennan MD [facility] [address] [facility] [place] [address] documented as of this encounter Visit Diagnoses Not on filedocumented in this encounter Care Teams Manager Investment Relationship Specialty Start Date End Date Saumya Felipe APRN [address] [place] [address] PCP - General Family Medicine 12/31/22 documented as of this encounter
--- OUTSIDE RECORDS SUMMARY | 2024-05-25 14:49 | XMS_ITS | Encounter Summary ---
Author Organization [facility] Address [facility] [place] [address] Care Team Providers Care Floor Covering Installer Name Role Phone Matteo Saumya LARA Primary Care Provider [phone] Reason for Visit * Reason Comments Fever Encounter Details Date Type Department Care Team (Late st Contact Info) Description 05/03/2024 3:26 PM EDT - 05/03/2024 6:39 PM [place] [address] Liane Davila MD [facility] [place] [address] Dania Leahy MD [facility] [place] [address] Pyelonephritis, acute Discharge Disposition: Home Social History Tobacco Use Types Packs/Day Years [...] Sign Reading Time Taken Comments Blood Pressure 110/61 05/03/2024 5:49 PM EDT Pulse 93 05/03/2024 5:49 PM EDT Temperature 37.1 ??C (98.8 ??F) 05/03/2024 2:29 PM ED T Respiratory Rate 16 05/03/2024 5:49 PM EDT Oxygen Saturation 98% 05/03/2024 5:49 PM EDT Inhaled Oxygen Concentration - - Weight 102.1 kg (225 lb) 05/03/2024 2:29 PM EDT Height - - Body Mass Index 37.44 01/22/2024 9:34 AM EDT documented in this encounter Discharge Instructions * Discharge Instructions* Kendal Ortega MD - 05/03/2024 6:20 PM EDT You presented to the ED for back pain, fever and chills. On imaging, a kidney infection was found in your left kidney. You were given one dose of ABX while here and will be sent home with a total of 7 days of antibiotic. Please complete the course of antibiotic therapy and follow up with your primary care provider. documented in this encounter Medications at Time of Discharge Medication Sig Dispensed Refills Start Date End Date ondansetron (Zofran) 4 mg tablet Take 1-2 tablets by mouth every 8 hours as needed for Nausea. 12 tablet 05/03/2024 metFORMIN XR (Glucophage XR) 500 mg ER 24 hr tablet 1 po qday x 2 week, then 2 po qday 60 tablet 3 04/30/2024 gabapentin (Neurontin) 300 mg capsule Take 300 [...] Capsule Take by mouth 2 times daily. ciprofloxacin (Cipro) 500 mg tablet Take 1 tablet by mouth 2 times daily for 7 days. 14 tablet 05/03/2024 05/10/2024 semaglutide, weight loss, (Wegovy) 0.5 mg/0.5 mL Pen InjectorIndications: maintaining at low dose to manage side effect Inject 0.5 mg subcutaneously once a week. Indications: maintaining at low dose to manage side effect 2 mL 3 04/10/2024 05/20/2024 documented as of this encounter ED Notes * Jhonatan Macario RN - 05/03/2024 6:27 PM EDT Pt discharged home. All invasive lines removed. Vitals within normal parameters. All belongings returned to pt prior to discharge. Discharge education was discussed with pt and/or caregiver and adequate knowlege of discharge plan was verbalized by patient and/or caregivers. * Liane Davila MD - 05/03/2024 4:08 PM EDT ED Attending Note HPI: Tiffanie Monreal is a 39 y.o. female who presents to the Emergency Department with 4 days of fever body aches joint pain and left flank pain, h/o gastric bypass. Fever 100-101, denies dysuria, hematuria or stones. Seen at OSH 2 days ago and covid and flu were negative, not sure what urine shows. Taking tylenol. No n/v/d. Past Medical History: Diagnosis Date Anxiety Depression Obesity ROS as per HPI Vitals: ED Triage Vitals [05/03/24 1429] BP: 133/85 Heart Rate: (!) 118 Resp: 16 Temp: 37.1 ??C (98.8 ??F) Temp src: Temporal SpO2: 97 % O2 Device: RA O2 Flow Rate (L/min): n/a Physical Exam Vitals and nursing note reviewed. Constitutional: Appearance: She is well-developed. HENT: Head: Normocephalic and atraumatic. Cardiovascular: Rate and Rhythm: Normal rate and regular rhythm. Pulses: Normal pulses. Heart sounds: Normal heart sounds. Pulmonary: Effort: Pulmonary effort is normal. No respiratory distress. Breath sounds: Normal breath sounds. Abdominal: General: There is no distension. Palpations: Abdomen is soft. Tenderness: There is abdominal tenderness. There is left CVA tenderness. Comments: Llq ttp no R/G Musculoskeletal: General: Normal range of motion. Cervical back: Normal range of motion and neck supple. Skin: General: Skin is warm and dry. Neurological: Mental Status: She is alert and oriented to person, place, and time. Comments: [facility] Psychiatric: Behavior: Behavior normal. Thought Content: Thought content normal. Judgment: Judgment normal. ED Course: I have reviewed labs and imaging, images and available reports, and they are significant for: No orders to display Assessment and Plan: 39 y.o. female with 3 to 4 days of fever myalgias and left flank pain. On exam she is tachycardic and feels very warm to touch. She has no dysuria or history of stone but she has significant CVA tenderness with fever and tachycardia therefore concern for Pyelo versus stone is infected. Plan for labs IV fluids Toradol and CT scan. Patient signed out to my colleague pending CT results. Did this case involve critical care? No Liane Davila MD 05/03/24 1634 * Kendal Ortega MD - 05/03/2024 3:55 PM EDT ED Resident Note HPI: Tiffanie Monreal is a 39 y.o. female who presents to the Emergency Department for 4x days of fever, chills, whole body aches, and left flank pain. She has a PMhx of migraine, gastric bypass surgery. She reports sudden onset of fever, chills, with temperature of 100-101C, whole body aches, left flank pain, decreased PO intake. She presented to [facility] ([facility] two day ago and reports blood work was completed that was unremarkable, and she is unclear what urine studies showed, and reports flu and covid were negative. She was discharged to home with recommendations to take tylenol. Due to her lack ofimprovement in symptoms and continued flank /LLQ pain she presented to the ED today. No other knownsick contacts. She is unsure of any recent tick or bug bites, denies any rashes. She denies chest pain or dyspnea. Denies nausea or emesis, diarrhea or constipation. She denies known history of renal stones, and denies dysuria or hematuria. ROS as per HPI Vitals: ED Triage Vitals [05/03/24 1429] BP: 133/85 Heart Rate: (!) 118 Resp: 16 Temp: 37.1 ??C (98.8 ??F) Temp src: Temporal SpO2: 97 % O2 Device: RA O2 Flow Rate (L/min): n/a Physical Exam Constitutional: Comments: Appears tired and uncomfortable HENT: Head: Normocephalic and atraumatic. Mouth/Throat: Mouth: Mucous membranes are moist. Pharynx: Oropharynx is clear. Eyes: Conjunctiva/sclera: Conjunctivae normal. Pupils: Pupils are equal, round, and reactive to light. Cardiovascular: Rate and Rhythm: Normal rate and regular rhythm. Heart sounds: Normal heart sounds. Pulmonary: Effort: Pulmonary effort is normal. Breath sounds: Normal breath sounds. Abdominal: General: Bowel sounds are normal. There is no distension. Palpations: Abdomen is soft. Tenderness: There is abdominal tenderness. There is left CVA tenderness. Comments: LLQ primarily. Musculoskeletal: Cervical back: Neck supple. Skin: General: Skin is warm and dry. Capillary Refill: Capillary refill takes less than 2 seconds. Neurological: General: No focal deficit present. Mental Status: She is alert and oriented to person, place, and time. Sensory: No sensory deficit. Motor: No weakness. ED Course: I have reviewed labs and imaging, images and available reports, and they are significant for: ED Course as of 05/03/24 2329 Sun May 03, 2024 1727 Labs notable for leukocytosis with elevated ANC, and normal hemoglobin. 1751 CT abdomen and pelvis notable for enlarged left kidney, with mild enlargement of proximal ureter and perinephric fat stranding is concerning for left pyelonephritis. No obstructing stone seen. 1823 UA notable for bacteria with pyuria, no hematuria. She was given one dose of cipro while here and will be Dced home with 7 day total course. She is agreeable with the plan. CT Abdomen & Pelvis wo Contrast Final Result 1. Minimally enlarged left kidney with perinephric [...] in the care of this patient. If you are a health care provider and have any questions regarding this report, please contact the number below. For patients who have questions please contact the health child care giver that requested your imaging first. Assessment and Plan: 39 y.o. female who presented with 4 day of fever, chills and left flank pain. On presentation she was afebrile and HDS, her history and physical were concerning of pyelonephritis which was confirmed on CT abdomen and pelvis with no evidence of obstructing stone. Labs were notable for leukocytosis, with UA showing bacteria and pyuria, and were sent for culture. She will be discharged home with 7 day course of ciprofloxacin for pyelonephritis and instructed to follow up with his PCP. The visit findings, diagnosis, and care plan were discussed with the patient. The diagnosis and care plans discussions were outlined in the discharge instructions. The patient expressed understanding of the details of the visit, the return precautions and that she should return to the ER at any time for worsening symptoms, new symptoms, or other concerns. she agrees with thefollow- up plan. Kendal Ortega MD Resident 05/03/24 7603 Associated attestation - Liane Davila MD - 05/04/2024 10:00 AM EDT ED ATTENDING ATTESTATION NOTE The patient was seen in conjunction with the resident physician. I have independently performed thekey portions of the history and physical exam. I have reviewed the diagnostic studies including labs, imaging studies and EKGs. I have discussed the details of the case with the resident and agree with the assessment and plan as described in the resident note unless noted below or in my separate note. documented in this encounter Plan of Treatment Upcoming Encounters Date Type Department Care Team (Late st Contact Info) Description 06/02/2024 8:00 AM EDT Office [place] [phone] Julienne Lacey APRN [facility] [place] [address] 07/24/2024 1:30 PM EST Office Visit [place] [phone] Jenni Brennan MD [facility] [place] [address] documented as of this encounter Procedures Procedure Name Priority Date/Time Associated Diagnosis Comments CT ABDOMEN AND PELVIS WO CONTRAST STAT 05/03/2024 5:00 PM EDT URINALYSIS MICROSCOPIC WITH REFLEX TO CULTURE STAT 05/03/2024 4:25 PM EDT URINALYSIS WITH REFLEX CULTURE STAT 05/03/2024 4:25 PM EDT CBC (WITH DIFF) STAT 05/03/2024 4:25 PM EDT COMPREHENSIVE METABOLIC PANEL STAT 05/03/2024 4:25 PM EDT documented in this encounter Results * CT Abdomen & Pelvis wo Contrast (05/03/2024 5:00 PM EDT) [employer] WORKSTATION ID [id number] RAD Anatomical Region Laterality Modality Abdomen, Pelvis [...] who have questions please contact the health child care giver that requested your imaging first. ? Narrative [...] structures: No suspicious lesions. Procedure Note Hiram Gonzalez MD - 05/03/2024 EXAMINATION: CT ABDOMEN AND [...] patients who have questions please contactthe health child care giver that requested your imaging first. Liane Gomez [...] MD URINE ORDERABLES [facility] [place] [address] * (ABNORMAL) Urinalysis with reflex Culture (05/03/2024 [...] PM EDT [facility] Specific [place] Urine Automated 1.006 1.005 - 1.030 05/03/2024 5:50 PM EDT [facility] Appearance, Urine Dipstick Clear Clear 05/03/2024 5:50 PM EDT [facility] Color, Urine Dipstick Yellow Yellow, Dark Yellow 05/03/2024 5:50 PM EDT [facility] CULTURE ADDED? [facility]/03[facility]2024 [facility] URINE SPECIMEN OBTAINED BY CLEAN CATCH PROCEDURE / Unknown Non Blood Collection / Unknown 05/03/2024 4:25 PM EDT 05/03/2024 5:10 PM EDT Liane Gomez MD URINE ORDERABLES [facility] [place] [address] * (ABNORMAL) Comprehensive metabolic panel (05/03/2024 4:25 PM EDT) Glucose 105 65 - 199 mg/dL 05/03/2024 5:39 PM EDT [facility] Comment:Glucose Concentratio n >=200 mg/dL plus symptoms is consistent with Diabetes Mellitus. Blood Urea Nitrogen 7(L) 8 - 18 mg/dL 05/03/2024 5:39 PM EDT [facility] Creatinine 0.66(L) 0.70 - 1.20 mg/dL 05/03/2024 5:39 PM EDT [facility] Sodium 134(L) 135 - 145 mMol/L 05/03/2024 5:39 PM EDT [facility] Potassium 4.1 3.5 - 5.0 mMol/L 05/03/2024 5:39 PM EDT [facility] Chloride 101 98 - 107 mMol/L 05/03/2024 5:39 PM EDT [facility] Carbon Dioxide 21(L) 22 - 31 mMol/L 05/03/2024 5:39 PM EDT [facility] Anion Gap 12 5 - 15 mMol/L 05/03/2024 5:39 PM EDT [facility] Calcium 9.0 8.5 - 10.5 mg/dL 05/03/2024 5:39 PM EDT [facility] Protein, Total 7.1 6.1 - 8.0 g/dL 05/03/2024 5:39 PM EDT [facility] Albumin 3.7 3.2 - 5.2 g/dL 05/03/2024 5:39 PM EDT [facility] Aspartate Aminotransferase 24 <=30 unit/L 05/03/2024 5:39 PM EDT [facility] Alanine Aminotransferase 32(H) 0 - 30 unit/L 05/03/2024 5:39 PM EDT [facility] Alkaline Phosphatase 102 35 - 105 unit/L 05/03/2024 5:39 PM EDT [facility] Bilirubin, Total 0.4 <=1.3 mg/dL 05/03/2024 5:39 PM EDT [facility] Est Glomerular Filtration Rate - Female [...] PM EDT Liane Gomez MD CHEMISTRY ORDERABLES [facility] [place] [address] * (ABNORMAL) CBC (with Diff) (05/03/2024 4:25 PM EDT) White Blood Cell 10.97(H) 4.00 - 9.50 x10(3)/mc L 05/03/2024 5:15 PM EDT [facility] Red Blood Cell 4.25 4.00 - 5.21 x10(6)/mc L 05/03/2024 5:15 PM EDT [facility] Hemoglobin 12.1 11.7 - 15.5 g/dL 05/03/2024 5:15 PM EDT [facility] Hematocrit 36.3 35.7 - 45.8 % 05/03/2024 5:15 PM [facility] Mean Cell Volume 85.4 82.6 - 94.4 fL 05/03/2024 5:15 PM [facility] Mean Cell Hemoglobin 28.5 27.1 - 32.0 pg 05/03/2024 5:15 PM [facility] Mean Cell Hemoglobin Concentration 33.3 31.7 - 35.0 g/dL 05/03/2024 5:15 PM [facility] Platelet 184 145 - 357 x10(3)/mc L 05/03/2024 5:15 PM [facility] Mean Platelet Volume 11.1 7.6 - 12.9 fL 05/03/2024 5:15 PM [facility] RDW Standard Deviation 42.9 37.0 - 46.0 fL 05/03/2024 5:15 PM [facility] RDW coefficient of variation 13.7 11.5 - 14.1 % 05/03/2024 5:15 PM [facility] NRBC% auto 0.0 % 05/03/2024 5:15 PM [facility] NRBC Absolute <0.01 <0.01 x10(3)/mc L 05/03/2024 5:15 PM [facility] Neutrophil % 73.5 % 05/03/2024 5:15 PM [facility] Neutrophil Absolute (ANC) - Automated 8.08(H) 1.70 - 6.10 x10(3)/mc L 05/03/2024 5:15 PM [facility] Lymph % 11.8 % 05/03/2024 5:15 PM [facility] Lymph Absolute 1.29 0.90 - 3.20 x10(3)/mc L 05/03/2024 5:15 PM [facility] Monocyte % 13.5 % 05/03/2024 5:15 PM [facility] Monocyte Absolute 1.48(H) 0.30 - 0.90 [...] HEMATOLOGY ORDERABLE S [facility] [place] [address] documented in this encounter Visit Diagnoses Diagnosis Pyelonephritis, acute Acute pyelonephritis without lesion of renal medullary necrosis documented in this encounter Administered Medications Inactive Administered Medications - up to 3 most recent administrations Medication Order MAR Action Action Date Dose Rate Site acetaminophen (Tylenol) tablet 650 mg 650 mg, Oral, EVERY 4 HOURS PRN, Starting on 05/03/24 at 1614, Until 05/03/24 at 2038, Pain, - Maximum dose of acetaminophen is 4,000 mg from all sources in 24 hours. - Unless otherwise specified, when ordered PRN for pain, acetaminophen should be given first if other PRN pain medications are ordered., Routine Given 05/03/2024 4:29 PM EDT 650 mg ciprofloxacin (Cipro) tablet 500 mg 500 mg, Oral, ONCE, 1 dose, On 05/03/24 at 1825, Give this medication 2 hours BEFORE, or 6 hours AFTER products with multivalent cations (e.g. Calcium, Iron, Zinc, Magnesium, Aluminum). Do not coadminister, STAT, Indication for (Active or Suspected): Urinary Tract/Pyelonephritis Given 05/03/2024 6:30 PM EDT 500 mg ketorolac (Toradol) (15 mg/mL) injection 15 mg 15 mg, Intravenous, ONCE, 1 dose, On 05/03/24 at 1630, Routine Given 05/03/2024 4:29 PM EDT 15 mg lactated Ringers 1,000 mL IV bolus at 2,000 mL/hr, Intravenous, ONCE, 1 dose, On 05/03/24 at 1620 New Bag 05/03/2024 4:24 PM EDT 2000 mL/hr ondansetron (pf) (Zofran) (2 mg/mL) injection 4 mg 4 mg, Intravenous, ONCE, 1 dose, On 05/03/24 at 1620, STAT Given 05/03/2024 4:25 PM EDT 4 mg documented in this encounter Active and Recently Administered Medications Times are shown in EDT. Scheduled Medication Order 05/01/2024 05/02/2024 05/03/2024 ciprofloxacin (Cipro) tablet 500 mg (COMPLETED) 500 mg, Oral, ONCE, 1 dose, On 05/03/24 at 1825, Give this medication 2 hours BEFORE, or 6 hours AFTER products with multivalent cations (e.g. Calcium, Iron, Zinc, Magnesium, Aluminum). Do not coadminister, STAT, Indication for (Active or Suspected): Urinary Tract/Pyelonephritis 1830 (Given - Provid er: Jhonatan Macario RN) ketorolac (Toradol) (15 mg/mL) injection 15 mg (COMPLETED) 15 mg, Intravenous, ONCE, 1 dose, On 05/03/24 at 1630, Routine 1629 (Given - Provid er: Jhonatan Macario RN) lactated Ringers 1,000 mL IV bolus (COMPLETED) at 2,000 mL/hr, Intravenous, ONCE, 1 dose, On 05/03/24 at 1620 1624 (New Bag - Prov ider: Jhonatan Macario RN)1750 (Stopped - Provider: Jhonatan Macario RN) ondansetron (pf) (Zofran) (2 mg/mL) injection 4 mg (COMPLETED) 4 mg, Intravenous, ONCE, 1 dose, On 05/03/24 at 1620, STAT 1625 (Given - Provid er: Jhonatan Macario RN) PRN Medication Order 05/01/2024 05/02/2024 05/03/2024 acetaminophen (Tylenol) tablet 650 mg 650 mg, Oral, EVERY 4 HOURS PRN, Starting on 05/03/24 at 1614, Until 05/03/24 at 2039, Pain, - Maximum dose of acetaminophen is 4,000 mg from all sources in 24 hours. - Unless otherwise specified, when ordered PRN for pain, acetaminophen should be given first if other PRN pain medications are ordered., Routine 1629 (Given - Provid er: Jhonatan Macario RN) documented in this encounter Care Teams Floor Covering Installer Relationship Specialty Start Date End Date Saumya Fleipe APRN [address] [place] [address] PCP - General Family Medicine 12/31/22 documented as of this encounter
--- OUTSIDE RECORDS SUMMARY | 2024-05-25 14:49 | XMS_ITS | Encounter Summary ---
Author Organization [facility] Address [facility] [address] [address] Care Team Providers Care Ems Helicopter Pilot Name Role Phone Saumya Felipe APRN Primary Care Provider [phone] Encounter Details Date Type Department Care Team (Late st Contact Info) Description 09/30/2023 11:00 AM EST Office Visit [place] [address] Heidi South, MONITOR CAR OPERATOR [facility] [place] [address] Liane Glass, RD [facility] [place] [address] Status post bariatric surgery; History of recent stressful life event Social History Tobacco Use Types Packs/Day Years [...] Sign Reading Time Taken Comments Blood Pressure 127/67 09/30/2023 10:02 AM EST Pulse 80 09/30/2023 10:02 AM EST Temperature 36.5 ??C (97.7 ??F) 09/30/2023 10:[address] Respiratory Rate 16 09/30/2023 10:02 AM EST Oxygen Saturation 100% 09/30/2023 10:02 AM EST Inhaled Oxygen Concentration - - Weight 107 kg (236 lb) 09/30/2023 10:02 AM EST Height - - Body Mass Index 39.56 09/11/2023 3:20 PM EST documented in this encounter Patient Instructions * Patient Instructions* SaranacHeidi, MONITOR CAR OPERATOR - 09/30/2023 11:00 AM EST [facility] manager client support Florecita [phone] and Casandra [phone] Dietitians: [phone] Surgeons/ nurse practitioners: [phone] Nurse line: [phone] Dear Tiffanie, Please see your electronic medical record note from today for details we discussed at your visit. Below is some additional general information that you may find helpful. Testing: It would be helpful if you can have your lab work drawn a couple days before your visit luis eduardo [facility] facility so the results are available at the time of your follow up visit. If you have labwork done by your primary director of patient care before that date, please have a copy sent to the Bariatric Surgery Program. Please call/send my message if you have not heard from us within 2 weeks of having labs work done. Here's the link to [facility] Lab hours and locations: [email or web address] Next visit: Follow up visits are done at 4 months and 12 months after surgery and yearly thereafter. Some patients are evaluated on a more frequent basis. Please call [phone] if you do not receive an appointment by 3-4 weeks prior to the expected visit. Vitamins/Nutrition/Activity Recommendations: Please see your visit note for personalized recommendations General Vitamin recommendations: Multivitamins with minerals twice daily- needs to be an under 50 multivitamin that contains iron. Vitamin B12 500 mcg by mouth once daily Calcium citrate 500-600 mg with Vitamin D 400 units twice daily (600 mg in AM and 600 mg in PM- 2 pills twice a day) (or 1 chewable twice a day) Iron supplement: as specified in today's visit Vitamin D: as specified in today's visit General Nutrition recommendations: 1,000-1,200 calories per day (300 calories per meal, 100 calories per snack, 1-2 snacks per day) 60 grams of protein per day (20 grams per meal) 48-64 oz of non-caloric and hydrating fluids per day (6-8, 8 oz cups) Do not drink with meals- pushes food through more quickly, can cause upset stomach Activity: Aim for 30 minutes of exercise daily, 5 days a week of both cardio and strength training exercises. Skinfold care: Cleanse area with soap and water. Blow dry area on low setting with hairmasters manager. Avoid excessive heat and/or sweating as friction and moisture can exacerbate disease. Try OTC Dove clinical strength anti perspirant to affected areas nightly or an absorbent powder such as Gold Willoughby and Desinex Apply cotton strips (such as strips from old sheets) or larger size cotton underwear folded beneathskin folds to act as a wick. Do not apply talha cloth toweling which can cause further irritation Try combination of over the counter hydrocortisone cream with over the counter antifungal cream such as lotrimin twice a day for 2 weeks. If your symptoms do not improve you may require prescription of anti-fungal cream/powder. Follow up with PCP if symptoms worsen/fail to improve with above strategies. Constipation: Increase fiber, fluids and fitness. Yerba Prima is a fiber supplement that comes in capsule form. Additionally, consider trying 1 capful daily of miralax daily (preferably at night) with a goal of at least 1 BM per day. You can increase the dose as needed every 2-3 days (by adding on 1 capful either morning or night) without safety concerns, noting that individual tolerance becomes limited by loose stools and bloating with doses higher than 2 capfuls twice daily. Please call if you do not have a BM after 3 days. On days with loose stools, we recommend reducing miralax to 1/2 capful daily but continue to take miralax every day Nausea: Common causes for nausea post bariatric surgery are: Eating too fast, eating too much, drinking with meals, or not chewing well enough. Be sure to eat slowly and chew food well. Take at least30 minutes or more to eat a meal. Call if symptoms worsen, fail to improve, or if you have difficulty keeping food or fluid down. Alcohol: is not recommended for at least 6-12 months after surgery. Alcohol is absorbed much fasterand stays in your system much longer post bariatric surgery and as a result there is an increase risk of alcohol misuse/abuse after bariatric surgery. It should be used sparingly, no more than one drink per occasion, no more than 2 drinks a week. Alcohol is toxic to the liver, a source of empty calories, it can cause ulcers, vitamin and mineral deficiencies, as well as impair digestion and absorption of nutrients. Call or follow up with your therapist or primary care provider if you are struggling or think your alcohol intake is a problem. control for women of child bearing age: is recommended for at least 18-24 months after surgery. f non-prescribed drugs and treet drugs is unsafe Anti-inflammatory medications such as Ibuprofen (Advil), Aleve (Naproxen), Excedrin, Bernie-Alexandria should be used sparingly after gastric bypass, since they increase the risk of ulcer and bleeding. A bone mineral density scan (DEXA) is recommended every 2 years after bariatric surgery. Please schedule this study through your primary care providers office. Hair Loss: is associated with rapid weight loss and is seen approximately 3 to 6 months after surgery and can last 3 to 6 months. It is almost always temporary. Eating a healthy diet with 60 grams ofprotein per day and taking your multivitamin with minerals will help. Sleep Apnea: If you have a history of sleep apnea and have a CPAP/BiPAP, please be sure to follow up with the sleep center to confirm your pressures and determine if continued use of CPAP/BiPAP is recommended. Potential lifetime risks of gastric bypass include risk of ulcer, which is increased with alcohol and antiinflammatory medications and internal hernia (less than 5%), which may be increased with higher than predicted weight loss Potential lifetime risks of sleeve gastrectomy include developed heartburn or severe reflux Call us: If you have concerns. If you have unexplained abdominal pain. if you see blood in your stool or vomit blood If you have prolonged vomiting Post Surgery Support Group: Our post surgery support group meets at [facility] on the saturday of every month from 1:00 PM-2:00 PM. You can attend online or in person. Use the following link to attend online: [email or web address] Nutrition and Activity apps- Baritastic, My Fitness Pal, Lose It, My Plate Internet resources: www.Music Cave Studios www.Restorando www.bariatriceating.Neosens www.HyprKeynessPal.com/blog [facility] facebook page: https://www.facebook.[email or web address]/[email or web address] Books & Magazines: - Recipes for Life After Weight Loss Surgery by Ally Schmitt - Shrink Yourself by Dr Alban Mendez - Eating Well - www.Nidmi - Cooking Light- www.cookingDxUpClose.Neosens Anxiety: The Happiness Trap by Carlos A Tee The Mindfulness and acceptance workbook for anxiety By Rodriguez Zelaya. Mindful eating: What are you Hungry For? By Eugene Braden The Mindful Diet by Simran Hdez and the [facility] group. Emotional eating: End Emotional Eating by Liane Khalil Calming the Emotional Storm Lisseth Ayala documented in this encounter Progress Notes * Heidi South APRN - 09/30/2023 11:00 AM EST [place] [address] Reason for visit: Bariatric Surgery follow up visit Subjective: Tiffanie Monreal is s/p laparoscopic Thomas-en-Y gastric bypass 09/30/[address] Downing, she presents today for annual BSP follow up. Since her last visit she is s/p diagnostic abdominal laparoscopy, EGD, upper GI endoscopy with Dr. Dubose on 07/18/23 for further evaluation of abdominal pain, which showed small opening at Bourne's defect which was repaired. Otherwise normal gastric bypass anatomy with no abnormalities noted. Upperendoscopy with no evidence of stenosis and no ulcerative disease. She also had a colonoscopy 08/22/23 for further evaluation of BRBPR and black tarry stool, which showed internal and external hemorrhoids otherwise normal colon and terminal ileum. She notes since her procedures she is feeling better. Reports epigastric/abdominal pain, n/v have all resolved. Overall tolerating foods/fluids and trying to make sure she is meeting nutritional/fluid requirements (some days are better than others). Pt reports no difficulty swallowing, epigastric pain, or bloating. No GERD. No N/V. BM tend toward constipation, she is now having daily BM and is taking miralaxfiber gummies daily Tiffanie is being f/b Dr. Hutchinson at the [facility], she is on Qsymia which has been well tolerated, she is on the next step up which she started this morning. Some increase life stressors, related to her ex- and her kid's health. She is trying to stayon her routine. She has f/u scheduled with her PCP this week. Current Supplements: (hx of iron deficiency and low Vit D) Taking Bariatric Fusion Multivitamin one a day( with 45 iron) Calcium citrate pills two pills twice a day Vitron C Mon/Wed/Fri Hair skin and nails Pt follows with PCP/specialist for disease management and age specific screening. Pre-Bariatric Surgery Obesity related medical issues: Diabetes [] Yes [x] Not a baseline issue HTN: [] Yes [x] Not a baseline issue GERD: [] Yes [x] Not a baseline issue Hyperlipidemia: [] Yes [x] Not a baseline issue ESTHELA: [] Yes [x] Not a baseline issue Musculoskeletal issues: [x] Yes back pain improved with weight loss, recent achilles injury, improving. [] Not a baseline issue Liver Disease: Not a baseline issue. Patient Active Problem List Diagnosis Code Breast hypertrophy N62 Class 3 severe obesity with body mass index (BMI) of 40.0 to 44.9 in adult E66.01, Z68.41 Upper airway resistance syndrome with sleep fragmentation G47.8 Insomnia G47.00 Major depressive disorder F32.9 Anxiety disorder F41.9 Bariatric surgery status: 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 Z98.84 Abdominal pannus E65 Migraine G43.909 Review of Systems Constitutional: energy level is up/down r/t stress, no c/o restless leg, + hair thinning/loss. Neuro: no c/o paresthesias, no changes in memory. CV: no c/o chest pain or palpitations. Pulm: denies SOB or cough. GI: as above. SPRAY DYER: s/p hysterectomy approx 2014 (ovaries intact). Skin: Continues to have redundant skin (thighs) she has seen plastics, procedure will be covered byinsurance, she had to post pone surgery d/t achilles injury and hoping to get back down to her wt goal, she continues to have pinching/pulling, rubbing, chafing and rashes. (OTC powder, Nystatin). Health Habits:Tobacco/Nicotine use: None. ETOH use: Less than one drink/month. No NSAIDs. Social History: , 2 children ages 16 and 19. 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 Meds and Allergies reviewed. Pre-op 08/25/18 Wt (lbs) 295 BMI 49 HT: 65 Post-op WT BMI %EBW lost 10/24/18 275 45.8 14 01/21/19 238 39.7 40 07/24/19 215 35.9 55 11/20/19 Reports at 200 - - 09/26/20 215 35.9 55 11/05/22 249 41.5 32 12/31/22 247 41.1 33 04/30/23 246 40.9 34 09/30/23 236 39.6 41 Objective: BP 127/67 (BP Location (NBP): Left arm, Patient Position: Sitting, BP Cuff Sizes: Large Adult (32-43 cm)) Pulse 80 Temp 36.5 ??C (97.7 ??F) (Temporal) Resp 16 Wt 107 kg (236 lb) SpO2 100% BMI 39.56 kg/m?? Physical Exam General: Alert, pleasant, NAD, appears well. Abdomen: Soft, non-distended, non-tender. Resp: No increased work of breathing. Speaking in full sentences. No cough/wheeze witnessed. Skin: s/p panni. Skin is warm and dry. No rash noted on exam today. Psychiatric: Normal mood and affect. Appropriate eye contact. Recent Results (from the past 72 hour(s)) Hemogram Result Value Ref Range WBC 8.6 4.0 - 9.5 x10(3)/mcL RBC 4.59 4.00 - 5.21 x10(6)/mcL Hemoglobin 13.1 11.7 - 15.5 g/dL Hematocrit 39.7 35.7 - 45.8 % MCV 86.5 82.6 - 94.4 fL MCH 28.5 27.1 - 32.0 pg MCHC 33.0 31.7 - 35.0 g/dL Platelets 252 145 - 357 x10(3)/mcL RDWSD 42.0 37.0 - 46.0 fL RDWCV 13.4 11.5 - 14.1 % MPV 10.4 7.6 - 12.9 fL nRBC % Auto 0.0 % nRBC Abs Auto 0.000 0.000 - 0.000 x10(3)/mcL Assessment 38 y.o. female who is 5 years s/p Thomas-en-Y gastric bypass with 41% of excess body weight loss Plan: S/p bariatric surgery: Doing well from a bariatric surgery perspective. Epigastric pain, N/V have resolved. She will continue f/u with Dr. Hutchinson at the [facility] for ongoing AOM management. We discussed dietary considerations and strategies for continued success . Reviewed importance of continuing to meet nutritional/protein/fluid requirements , consider preplanning/meal prep and following post bariatric eating behaviors. Discussed risks associated with alcohol intake after bariatric surgery (increased risk of alcohol misuse/abuse, increased risk of ulcers, empty calorie). Patient has met with centrifugal chiller technician today, please see note for additional details/dietary evaluation. Increase Life stressors : She will f/u with her PCP as planned. She is hopeful that things will be improving within the next week. Encouraged participation in BSP support group. Pre-Bariatric surgery obesity related co-morbidities: Improved/stable overall, patient to continue to follow with PCP/specialist. Skin issues: Continue with current skin care, and f/u with plastics for consideration of surgery. Risk for vitamin deficiencies: Reviewed lab results as above. Still pending iron studies, folate, Vit D, Vit B 1, Vit B 12, CMP, PTH. Will make additional recommendations once lab results are available. Reviewed recommended vitamin/mineral supplements- See RD note for additional details. Pt reminded that a bone mineral density scan (DEXA) is recommended every 2 years after bariatric surgery. Recommended f/u with primary care provider to schedule baseline screen. RTC in 6 months for next BSP follow up visit/continued support. Call/rtc sooner prn with questions/concerns or unexplained abdominal pain, prolonged nausea, vomiting or inability to hydrate. Bariatric Program Summary report is availabe for patient's review via [email or web address] I spent a total of 25 minutes associated with this encounter, including chart review, the patient encounter, and documentation. Heidi South APRN RECOMMENDED BARIATRIC SURGERY PROGRAM POSTOPERATIVE FOLLOW-UP: Follow up: done at 4, 12 and yearly thereafter. High risk patients are evaluated on a more frequentbasis. *Typical Supplement recommendations: Multivitamin with minerals twice a day, B12 500 mcg once a day, calcium citrate 600 mg/400 units vitamin D twice a day, iron (ferrous fumarate, carbonyl iron taken with vitamin C 250 mg once every other day) for menstruating females or those with Iron Deficiency. Labwork: Hemogram, ferritin, iron (transferrin) saturation, iron, folate, B1, B12, D (25 hydroxy only), Intact PTH and comprehensive metabolic profile at 4, 12 months and yearly. If labwork is done by the primary director of patient care: please send a copy to the Bariatric Surgery Program, General Surgery Clinic, [facility], or fax [phone] * Liane Glass, RD - 09/30/2023 11:00 AM EST Bariatric Surgery Program Nutrition Progress Note Encounter Type: follow up SUBJECTIVE: Topics Discussed/Patient Concerns: Working with Dr. Brennan at the [facility]- started Qsymia. No dietary concerns. Lots of personal stress. Not sleeping. Has appt w PCP this week. Appetite is all over the place. Hard to get everything in. Things that were a part of her routine has to now think about to make sure they happen. 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 Dubose S/p diagnostic laparoscopy on 07/18/23 Weight History: Date Weight (lbs) Height (inches) BMI Max wt 311# 12/04/17 296.2# Initial program weight 08/25/18 295# 65 49 1st pre-op visit 09/30/18 %[facility] Surgery 10/24/18 275# 14% 45.8 1st post-op check 07/24/19 215.8# 55% 35.9 10 month follow-up 11/19/18 200# ~1 year post-op (reported) 09/26/20 215.6# 55% 35.9 2 years post-op 11/05/22 249# 32% 41.5 4 yrs post-op 12/31/22 247# 33% 41.4 4 yrs, 3 mo post-op 04/30/23 246# 34% 40.9 4.5 yrs post-op 09/30/23 236# 41% 39.3 5 years post-op Platter Body Weight (based on BMI of 25): 150# 30-70% Excess Weight Loss: 194-252#; 50% Excess Weight Loss: 223# MEDICATIONS: AOM: Phentermine-topiramate- just increased to 2 pills, well tolerated. Feels taste of things have changed. Vitamin/Mineral Supplements (reported by patient): Supplement Type Brand/Form Dosage/Amount Frequency Comments Multivitamin Bariatric Fusion MVM w/ 45 mg iron 1 capsules daily Calcium Tee citrate pills 2 pills Twice daily Vitamin B12 1,000 mcg none Iron Vitron C 1 pill MWF Hair, skin, and nails 3 pills daily Contains biotin. Hold for 3 days p/t lab work Vitamin D none Rec based on labs Food Allergies/Intolerances: pork-certain types. Dairy- milk, ice cream- stomach cramps, diarrhea. Can do cheese, cottage cheese, small amount regular yogurt, Arabic yogurt Tracking Intake: Not currently. 24-Hour Intake: Generally has not been snacking Breakfast Out to breakfast- eggs (2), EM, home fries AM Snack Lunch 1/2 egg salad s/w PM Snack Dinner Taco - hamburger, lettuce, onion, cheese HS Snack Protein/ grams per day: 50-60 g Hydrating fluids- oz/ day: 40 oz bottle she fills multiple times per day water w/ CL or skinny syrups, Soda: None. ETOH: < 1x/ month, up to 4 drink per occasion Caffeine: None. Sweets: Meals per day: Feels full/satisfied after eating: Yes. Usually doesn't finish what's on her plate. Drinks with meals: a littleStops drinking before meals. Sometimes doesn't wait after before drinking again. In the past month, pt has vomited/regurgitated: None. Constipation/Diarrhea: Taking Miralax Fiber gummies (soluble fiber) x 4. Also stool softener daily.BM every day or every other day. Exercise: off/on.was going to the gym- mixture of weights and cardio. More recently TM: walking/run/jog. ASSESSMENT: Summary of Weight Loss: Tiffanie Monreal returns for routine follow-up at 5 years s/p surgery. Her excess weight loss is at 41%. She is tolerating the diet and is meeting protein and fluid goals. Current personal stress causing poor sleep hygiene and some variability in her routine. Reviewed supplements. NUTRITION INTERVENTION & MONITORING: Provided support/encouragement and reinforced importance of meeting nutritional goals. Limit alcohol to 1-2 drinks per occasion. Continue the good work meeting protein and fluid goals. Reviewed vitamin and mineral supplement recommendations. Multivitamin with minerals- continue Bariatric Multivitamin 1 pill per day Calcium citrate 600 mg with vitamin D twice daily. (2 pills twice per day or 1 chew twice daily) Iron- 65 mg iron with vitamin C 3 times per week (Saturday/Saturday), Vitron C is a popular option. Take miralax 1 cap a day on the day you take your iron supplement to minimize risk of constipation. Space iron 2 hours from calcium supplementation Do not take iron with caffeine, fiber, thyroid medications or dairy products Hold biotin for 3 days before having lab work Evaluation by nurse practitioner today. F/u in 6 month with Luz Vinson APRN, sooner if requested. documented in this encounter Plan of Treatment Upcoming Encounters Date Type Department Care Team (Late st Contact Info) Description 06/02/2024 8:00 AM EDT Office Visit [place] [address] Julienne Lacey APRN [facility] [place] [address] 07/24/2024 1:30 PM EST Office Visit Weight [place] [address] Jenni Brennan MD [facility] DR [facility] [place] [address] documented as of this encounter Visit Diagnoses Diagnosis Status post bariatric surgery Bariatric surgery status History of recent stressful life event documented in this encounter Care Teams Ems Helicopter Pilot Relationship Specialty Start Date End Date Saumya Felipe APRN [address] [place] [address] PCP - General Family Medicine 12/31/22 documented as of this encounter
--- OUTSIDE RECORDS SUMMARY | 2024-05-25 14:49 | XMS_ITS | Encounter Summary ---
Author Organization [facility] [place] [address] Care Team Providers Care Mechanical Estimator Name Role Phone Saumya Felipe APRN Primary Care Provider [phone] Encounter Details Date Type Department Care Team (Latest Contact Info) Description 05/03/2024 Travel Social History Tobacco Use Types Packs/Day [...] 8:00 AM EDT Office [place] [address] Julienne Lacey APRN [facility] [place] [address] 07/24/2024 1:30 PM EST Office Visit [place] [address] Jenni Brennan MD [facility] DR JANET [place] [address] documented as of this encounter Visit Diagnoses Not on filedocumented in this encounter Care Teams Mechanical Estimator Relationship Specialty Start Date End Date Saumya Felipe APRN [address] [place] [address] PCP - General Family Medicine 12/31/22 documented as of this encounter
--- OUTSIDE RECORDS SUMMARY | 2024-05-25 14:49 | XMS_ITS | Encounter Summary ---
Author Organization [facility] [place] [address] Care Team Providers Care Analysis Lead Name Role Phone Saumya Felipe APRN Primary Care Provider [phone] Encounter Details Date Type Department Care Team (Latest Contact Info) Description 12/23/2023 Travel Social History Tobacco Use Types Packs/Day [...] 8:00 AM EDT Office [place] [phone] Julienne Lacey APRN [facility] [place] [address] 07/24/2024 1:30 PM EST Office Visit [place] [phone] Jenni Brennan MD [facility] DR JANET [facility] [address] documented as of this encounter Visit Diagnoses Not on filedocumented in this encounter Care Teams Analysis Lead Relationship Specialty Start Date End Date Saumya Felipe APRN [address] [place] [address] PCP - General Family Medicine 12/31/22 documented as of this encounter
--- OUTSIDE RECORDS SUMMARY | 2024-05-25 14:49 | XMS_ITS | Encounter Summary ---
Author Organization [facility] Address [facility] [place] [address] Care Team Providers Care Equipment Installer Name Role Phone Saumya Felipe APRN Primary Care Provider [phone] Encounter Details Date Type Department Care Team (Late st Contact Info) Description 01/22/2024 9:45 AM EDT Office Visit [place] [address] Jenni Brennan MD [facility] [address] [facility] [address] Class 2 obesity with body mass index (BMI) of 38.0 to 38.9 in adult, unspecified obesity type, unspecified whether serious comorbidity present (Primary Dx) Social History Tobacco Use Types Packs/Day Years [...] Sign Reading Time Taken Comments Blood Pressure 115/66 01/22/2024 9:34 AM EDT Pulse 70 01/22/2024 9:34 AM EDT Temperature - - Respiratory Rate - - Oxygen Saturation 98% 01/22/2024 9:34 AM EDT Inhaled Oxygen Concentration - - Weight 106.3 kg (234 lb 4.8 oz) 01/22/2024 9:34 AM EDT Height 165.1 cm (5' 5) 01/22/2024 9:34 AM EDT Body Mass Index 38.99 01/22/2024 9:34 AM EDT documented in this encounter Patient Instructions * Patient Instructions* Jenni Brennan MD - 01/22/2024 9:45 AM EDT To get your prescription through Mail order, go to: [email or web address] [place] home delivery. You will then need to complete an enrollment form. Message us at the time of your third shot of the month to request a refill. Let me know your weight and if you want to increase the dose. If you do not provide your weight to us as you request refills, your insurance might deny refills. Do this monthly until you are at the maximum dose of Wegovy or your symptoms of hunger and/or weight loss are controlled/adequate. Incretins/GLP 1 Receptor Agonists Brand (generic) Names Victoza or Saxenda (liraglutide), Ozempic or Wegovy (semaglutide), Rybelsus (semaglutide oral), Trulicity (dulaglutide), Zepboudn (tirzepatide) Saxenda and Wegovy are the only incretins that are FDA approved for treatment of obesity. The others have been FDA approved for diabetes, but sometimes are use off label to help with weight loss. Saxenda is the same medication as Victoza. Saxenda's highest dose is 3.0mg daily, whereas VIctoza is only up to 1.8mg daily for diabetes. Both of these are daily injections Wegovy is the same medication as Ozempic. Both of these are weekly injections Trulicity is a weekly injectable, and like all the other incretins, though it is not FDA approved for obesity treatment Trulicity is often used ???off label?? by obesity medicine specialists. Ryblesus is the oral form of semaglutide and the only oral incretin. How they work: Increase insulin sensitivity Decrease appetite Slow movement of food through the stomach making you feel streeter sooner and longer. When not to use: Family history of medullary thyroid cancer Use cautiously if you have had a history of pancreatitis Other medications For patients with diabetes on insulin: You will likely need to reduce your insulin use when you start this medication, depending on your hemoglobin A1c Common Side Effects (not comprehensive) Most commonly gastrointestinal including but not limited to diarrhea, nausea, taste changes, acid reflux. These side effects may improve after you are on the medication for a few weeks. These side effects are less likely with once weekly and oral dosing Serious Side Effects Gallbladder disease is an uncommon but serious side effect of using these medications. Gallbladder disease is a complication of this medication as well as a complication of obesity and rapid weight loss. If you experience any severe upper abdominal pain, uncontrolled vomiting, pain that radiates to your back or shoulders, please go to the emergency room for evaluation. What you can do EAT SLOWLY and stop when you feel full. This prevents feeling badly after meals. Starting this medication You must increase the dose slowly. You will have more severe side effects if you start on a high dose. Your doctor will start you at a low dose and prescribe slow titration, increasing the dose everyweek or month. Follow your provider's instructions. If you ever stop this medication for a period of time (one week or more) on purpose or by accident,you will need to begin taking it again at the initial starting dose which may require a new prescription. Monitoring If you do not achieve 5% weight loss at 12 weeks, we will increase the dose or try a different medication Uses Diabetes, weight loss Online information How to give yourself Wegovy injections: https://www.[employer]/taking-wegovy/bkh-jy-ewl-ein-buevwc-edl.html How to give Saxenda (or Victoza) injections: https://www.[employer]Donay/about-saxenda/kyt-zx-dwh-the-pen.html How to use Trulicity pen: https://www.Brightkite/how-to-use How to give Ozempic injections https://www.diabeteseducator.org/practice/practice-tools/gxrkjovz-nkridrmkfl-tbg ls/vqz-6-ovzbghcms documented in this encounter Progress Notes * Jenni Brennan MD - 01/22/2024 9:45 AM EDT CHIEF COMPLAINT: F/u for treatment of 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 This is follow up [facility] visit for this 38 y.o. patient. Weight gain due to: genetic factors, , stress/emotions in the past, decreased acitivty dueto Ach tendon injury leading to weight gain post cam surgery Barriers to success: Peak weight: 311, 2018? (302 per chart in 2012) Vasile post op: 200# 11/19/18 Initial weight 09/11/23: 241 Initial Body mass index is 40.46 kg/m??. Goals: less join pain, decrease weight to have surgery on legs, stop regain Today's weight: 234 Change since prior: -3 [facility] Team: Jenni Brennan MD, referred to RD 10/30/23 HPI TODAY PATIENT REPORTS Has only lost 7# since starting phentermine/topiramate AOM: Currently taking: Qsymia maxmal dose since October No neg ASE ANTI-OBESITY MEDICINE Attempt at lifestyle change number of months: Since 2019, activity > 150 min per week, appropriate caloric intake, WC 46in History of Bariatric Surgery: Yes If yes, enter date: 2018 [facility] CURRENT MEDICATIONS AOM TIMELINE Medications: Phentermine-topiramate and Semaglutide Phentermine-topiramate Start Date: 09/11/2023 Phentermine-topiramate Start Weight: 241 Semaglutide Start Date: 01/22/2024 (pending) Semaglutide Start Weight: 234 AOM CONTRAINDICATIONS/CAUTIONS : Hx migraines. The current method of family planning is status post hysterectomy. Recently changed insurance - GLPs covered by insurance with PA as she understands Factors contributing to decision making: NO hx of pancreatitis, NO Fam or personl hx of medullary thyroid ca, Cholecystectomy, NO hx of kidney stones Appetite:low COMPLICATIONS ADDRESSED Obesogenic meds: gabapentin - for HAs, loratadine MIGRAINE History: now on gabapentin; tried topiramate, helped with weight loss but made her feel dumbfounded. Was on low dose. Migraines Worse recently d/t increased stress LIFESTYLE INTERVENTIONS (Topics discussed today in BOLD): Nutrition: specific recommendations including appropriate caloric restriction per RD Good base knowledge Behavior: NO CONCERN FOR DISORDERED EATING Activity: Meeting recommendations Barriers: []needs cardiac eval []injury/pain preventing activity right now Stress Management: patient has good insight into this Sleep: associated with higher stress, working with PCP Self-monitoring: VITAL SIGNS: Vitals: 01/22/24 0934 BP: 115/66 Pulse: 70 SpO2: 98% Weight: 106.3 kg (234 lb 4.8 oz) Height: 165.1 cm (5' 5) Body mass index is 38.99 kg/m??. PHYSICAL EXAM: Gen: Alert and appropriate, NAD. ASSESSMENT AND PLAN Tiffanie Monreal was seen in follow up today for ongoing OBESITY WITHOUT EVIDENCE OF METABOLIC DISEASE s/p bariatric surgery in 2019 not yet at treatment goal [x] with improvement [] without change. Goals and treatment options were discussed. Continue medical management and lifestyle changes. FACTORS ASSOCIATED WITH OBESITY Obesogenic meds: Neuropathic pain control Plan: recommend stopping if topiramate is tolerated and controls migraines Metabolic complications addressed with obesity treatment: Other complications impacted with obesity treatment: Anxiety, Depression, and Migraine d/o AOM: continue top/phen; add Wegovy; reconsider d/c gabapentin if suboptimal weight loss with topiramate on board now fo rmigraines NUTRITION: f/u in [address] to assess adequacy of intake on new GLP Diagnoses and all orders for this visit: Class 2 obesity with body mass index (BMI) of 38.0 to 38.9 in adult, unspecified obesity type, unspecified whether serious comorbidity present - semaglutide, weight loss, (Wegovy) 0.25 mg/0.5 mL Pen Injector; Inject 0.25 mg subcutaneously once a week for 28 days. Message physician for next refill with update of weight and indicate if you want to increase to the next dose. No orders of the defined types were placed in this encounter. Return in about 6 weeks (around 03/04/2024) for MED CHECK - 15 Zoom AND f/u in 6 months, //RD:, 3mos. PRIOR LABS: Lab Results Component Value Date NA 142 12/20/2023 K 4.1 12/20/2023 CL 106 12/20/2023 CO2 26 12/20/2023 BUN 8 12/20/2023 CREATININE 0.7 12/20/2023 GLUCOSE 116 12/20/2023 CALCIUM 8.8 12/20/2023 ESTGFR 113.46 12/20/2023 Lab Results Component Value Date [id number] 392 09/30/2023 documented in this encounter Plan of Treatment Upcoming Encounters Date Type Department Care Team (Late st Contact Info) Description 06/02/2024 8:00 AM EDT Office [place] [phone] Julienne Lacey SMELTER CHARGER [facility] [place] [address] 07/24/2024 1:30 PM EST Office Visit [place] [phone] Jenni Brennan MD [facility] [address] [facility] [place] [address] documented as of this encounter Visit Diagnoses Diagnosis Class 2 obesity with body mass index (BMI) of 38.0 to 38.9 in adult, unspecified obesity type, unspecified whether serious comorbidity present- Primary documented in this encounter Care Teams Equipment Installer Relationship Specialty Start Date End Date Saumya Felipe APRN [address] [place] [address] PCP - General Family Medicine 12/31/22 documented as of this encounter
--- OUTSIDE RECORDS SUMMARY | 2024-05-25 14:49 | XMS_ITS | Encounter Summary ---
Author Organization [facility] Address [facility] [place] [address] Care Team Providers Care Sewing Machine Operator Name Role Phone Saumya Felipe APRN Primary Care Provider [phone] Encounter Details Date Type Department Care Team (Late st Contact Info) Description 10/30/2023 4:30 PM EDT Office Visit [place] [address] Jenni Brennan MD [facility] [address] [facility] [place] [address] Class 2 obesity with body mass index [...] Sign Reading Time Taken Comments Blood Pressure 108/69 10/30/2023 4:00 PM EDT Pulse 75 10/30/2023 4:00 PM EDT Temperature - - Respiratory Rate - - Oxygen Saturation - - Inhaled Oxygen Concentration - - Weight 107.7 kg (237 lb 8 oz) 10/30/2023 4:00 PM EDT Height 165.1 cm (5' 5) 10/30/2023 4:00 PM EDT Body Mass Index 39.52 10/30/2023 4:00 PM EDT documented in this encounter Progress Notes * Jenni Brennan MD - 10/30/2023 4:30 PM EDT CHIEF COMPLAINT: F/u for treatment of 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 This is [facility] visit for this 38 y.o. patient. Weight gain due to: genetic factors, , stress/emotions in the past, decreased acitivty dueto Ach tendon injury leading to weight gain post cam surgery Barriers to success: Peak weight: 311, 2018? (302 per chart in 2011) Vasile post op: 200# 11/19/18 Initial weight 09/11/23: 241 Initial Body mass index is 40.46 kg/m??. Goals: less join pain, decrease weight to have surgery on legs, stop regain Today's weight: 237 Change since prior: -4 [facility] Team: Jenni Brennan MD, referred to RD 10/30/23 HPI TODAY PATIENT REPORTS AOM: Currently taking: Qsymia 11.25 and 69 - does not feel much effect. No ASE. At current dose since october 12. Initially felt like it had more effect. ANTI-OBESITY MEDICINE Attempt at lifestyle change number of months: Since 2018, activity > 150 min per week, appropriate caloric intake, WC 46in History of Bariatric Surgery: Yes If yes, enter date: 2018 RNY CURRENT MEDICATIONS AOM TIMELINE Medications: Phentermine-topiramate Phentermine-topiramate Start Date: 09/11/2023 Phentermine-topiramate Start Weight: 241 AOM CONTRAINDICATIONS/CAUTIONS The current method of family planning is status post hysterectomy. Factors contributing to decision making: NO hx of kidney stones Appetite:low COMPLICATIONS [...] with higher stress, working with PCP Self-monitoring: Groups of interest: VITAL SIGNS: Vitals: 10/30/23 1600 BP: 108/69 BP Location (NBP): Right arm Patient Position: Sitting BP Cuff Sizes: Large Adult (32-43 cm) Pulse: 75 Weight: 107.7 kg (237 lb 8 oz) Height: 165.1 cm (5' 5) Body mass index is 39.52 kg/m??. PHYSICAL EXAM: Gen: Alert and appropriate, [...] obesity treatment: Anxiety, Depression, and Migraine d/o Referrals pending: Dietitian, AOM: will maximize top/phen as long as BMP is ok. Diagnoses and all orders for this visit: Class 2 obesity with body mass index (BMI) of 39.0 to 39.9 in adult, unspecified obesity type, unspecified whether serious comorbidity present - Basic Metabolic Panel (non-fasting); Future Orders Placed This Encounter Procedures Basic Metabolic Panel (non-fasting) Return for //RD:// follow up as scheduled with MD. PRIOR LABS: Lab Results Component Value Date NA 140 09/30/2023 K 3.7 09/30/2023 CL 109 (H) 09/30/2023 CO2 22 09/30/2023 BUN 6 (L) 09/30/2023 CREATININE 0.58 (L) 09/30/2023 GLUCOSE 71 09/30/2023 CALCIUM 9.8 09/30/2023 ESTGFR 119 09/30/2023 Lab Results Component Value Date [id number] 392 09/30/2023 documented in this encounter Plan of Treatment Upcoming Encounters Date Type Department Care Team (Late st Contact Info) Description 06/02/2024 8:00 AM EDT Office [place] [phone] Julienne Lacey APRN [facility] [place] [address] 07/24/2024 1:30 PM EST Office Visit [place] [address] Jenni Brennan MD [facility] [address] [place] [address] documented as of this encounter Results * (ABNORMAL) Basic Metabolic Panel (non-fasting) (10/30/2023 5:02 PM EDT) Glucose 83 65 - 199 mg/dL [facility] Comment:Diabetes: >=200 mg/d L plus symptoms Blood Urea Nitrogen 11 8 - 18 mg/dL [facility] Creatinine 0.63(L) 0.70 - 1.20 mg/dL [facility] Sodium 141 135 - 145 mmol/L [facility] Potassium 4.1 3.5 - 5.0 mmol/L [facility] Comment: Please note: ??Patients with WBC >100,000 may have falsely elevated Potassium levels. ??For accurate Potassium quantification in these patients send serum separator tube (gold top) for subsequent determinations. ??Contact the Clinical Chemistry Laboratory if there are any questions. Chloride 109(H) 98 - 107 mmol/L [facility] Carbon Dioxide 24 22 - 31 mmol/L [facility] Anion Gap 8 5 - 15 mmol/L [facility] Calcium 9.7 8.5 - 10.5 mg/dL [facility] Est Glomerular Filtration Rate 116 >=60 mL/min/1. 73 m?? [facility] Comment: This patient's estimated GFR [...] In Lab Jenni Brennan MD CHEMISTRY ORDERABLES [facility] [place] [address] documented in this encounter Visit Diagnoses Diagnosis Class 2 obesity with body mass index (BMI) of 39.0 to 39.9 in adult, unspecified obesity type, unspecified whether serious comorbidity present- Primary documented in this encounter Care Teams Sewing Machine Operator Relationship Specialty Start Date End Date Saumya Felipe APRN [address] [place] [address] PCP - General Family Medicine 12/31/22 documented as of this encounter
--- OUTSIDE RECORDS SUMMARY | 2024-05-25 14:49 | XMS_ITS | Encounter Summary ---
Author Organization [facility] [place] [address] Care Team Providers Care Branch Operations Specialist Name Role Phone Saumya Felipe APRN Primary Care Provider [phone] Reason for Visit * Auth/Cert (Routine) Specialty [...] GI ENDOSCOPY (WRVU 2.09) Jerica Bronson MD [facility] [place] [address] [facility] Referral ID Status Reason Start Date Expiration Date Visits Re quested Visits Authorized [id number] 1 1 Encounter Details Date Type Department Care Team (Latest Contact Info) Description 07/18/2023 5:57 AM EST - 07/18/2023 11:17 AM [facility] [place] [address] Jerica Bronson MD [facility] [place] [address] Discharge Disposition: Home Social History Tobacco Use [...] Campbell MD - 07/18/2023 8:50 AM EST [facility] Department of Minimally Invasive Surgery Discharge Instructions [...] day, it is best to call the [facility] to speak with the Surgery nurses. The number is [phone]. - During the night or weekends call the [facility] steam drier operator at [phone] and ask to speak to the surgery resident trousseau consultant for general surgery. Please note: Your surgeon may not be Photofinishing Laboratory Worker, especially during the night or on weekends, so be ready to describe yourself and your surgery when you call. Follow up appointments: Future Appointments Date Time Provider Department Center 08/20/2023 9:30 AM Toshia Byrd APRN [facility] SURG [facility] 09/06/2023 8:15 AM Jenni Brennan MD [facility] WEIGHT [facility] 09/30/2023 10:00 AM LAB, THREE L Lab [address] [place] [address] 09/30/2023 11:00 AM Heidi South APRN [facility] SURG [facility] documented in this encounter Medications at Time [...] Campbell MD - 07/18/2023 7:12 AM EST [facility] General Surgery History and Physical Tiffanie Monreal [...] chest pain and shortness of breath. Signficant PM/ Past Medical History: Diagnosis Date Anxiety Depression Obesity Past Surgical History: Procedure Laterality Date SECTION, LOW TRANSVERSE 2003 SECTION, LOW TRANSVERSE 2007 CHOLECYSTECTOMY, LAPAROSCOPIC HYSTERECTOMY PRO ADJACENT TISSUE TRANSFER/REARGMT TRUNK 10 CM/< Right 07/04/2021 ADJ.TISSUE TRANSFER, REARRANGEMENT, TRUNK,10SQ.CM OR LESS (WRVU 6.37) performed by Alfredo Torrez MD at [facility] OSC PRO EXCISE EXCESS SKIN TISSUE, ABDOMEN N/A 01/03/2021 PANNICULECTOMY performed by Beau Torrez MD at [facility] MAIN OR PRO LAP GASTRIC BYPASS/SHELBIE-EN-Y N/A 09/30/2018 @LAPAROSCOPIC GASTROPLASTY, (WRVU 29.4) performed by Jerica Bronson MD at [facility] MAIN OR PRO UPPER GI ENDOSCOPY, DIAGNOSTIC N/A 09/30/2018 ENDOSCOPY, UPPER GI, DIAGNOSTIC, WITH OR WITHOUT SPECIMENS [facility] UPPER GI ENDOSCOPY, DIAGNOSTIC N/A 04/14/2020 EGD, UPPER GI ENDOSCOPY performed by Jerica Bronson MD at [facility] MAIN OR TUBAL LIGATION Bilateral 2007 [...] Sandhu MD - 07/18/2023 9:18 AM EST [facility] Operative Note Patient Name: Tiffanie Monreal : [id number] MR#: [id number] Case Date: 07/18/2023 Surgeon: Surgeon(s) and Role: [...] Operative Note Patient Name: Tiffanie Monreal : [id number] MR#: [id number] Case Date: 07/18/2023 Surgeon: Surgeon(s) and Role: [...] 8:00 AM EDT Office [place] [address] Julienne Lacey APRN [facility] [place] [address] 07/24/2024 1:30 PM EST Office Visit [place] [address] Jenni Brennan MD [facility] [address] [facility] [place] [address] documented as of this encounter Procedures Procedure Name Priority Date/Time Associated Diagnosis Comments Upper GI Endoscopy, Diagnostic (17034) Yes 07/18/2023 7:32 AM EST s/p bariatric surgery Lap, Diagnostic Abdomen (26720) Yes 07/18/2023 7:32 AM EST s/p bariatric surgery POCT GLUCOSE Routine 07/18/2023 6:44 AM EST documented in this encounter Results * POCT Glucose (07/18/2023 6:44 AM EST) Glucose, POC 91 65 - 199 mg/dL [facility] Comment: Supplemental ranges: <140 mg/dL before meals <180 mg/dL all other times of the day Blood 07/18/2023 6:44 AM EST 07/18/2023 6:44 AM EST Jerica Bronson MD POINT OF CARE TEST O RDERABLES [facility] [place] [address] documented in this encounter Visit Diagnoses Not on filedocumented in this encounter Administered Medications Inactive Administered Medications - up to 3 most recent administrations Medication Order MAR Action Action Date Dose Rate Site acetaminophen (Tylenol) 325 mg tablet 1 dose, Starting on Sarah 07/18/23 at 1025, Until Sarah 07/18/23 at 1031, Natalia Cuello: caroleinet override acetaminophen (Tylenol) tablet 975 mg 975 mg, Oral, EVERY 6 HOURS SCHEDULED, First dose on Sarah 07/18/23 at 1200, Until Discontinued, Maximum dose of acetaminophen is 4,000 mg from all sources in 24 hours. When ordered for pain, acetaminophen should be given even when other ordered pain medications are indicated., Routine Given 07/18/2023 10:31 AM EST 975 mg enoxaparin (Lovenox) (40 mg/0.4 mL) subcutaneous injection [...] shown in EST. Scheduled Medication Order 07/16/2023 07/17/2023 07/18/2023 acetaminophen (Tylenol) tablet 975 mg 975 mg, Oral, EVERY 6 HOURS SCHEDULED, First dose on Sarah 07/18/23 at 1200, Until Discontinued, Maximum dose of acetaminophen is 4,000 mg from all sources in 24 hours. When ordered for pain, acetaminophen should be given even when other ordered pain medications are indicated., Routine 1031 (Given - Provid er: Natalia Cuello RN) ceFAZolin (Ancef) 2 g vial attach to sodium chloride 0.9% 100 mL Mini-Bag Plus (COMPLETED) 2 g, Intravenous, EVERY 4 HOURS, 1 dose, First dose on Sarah /23 at 0645, Administer over 30 Minutes, Intra-Operative [...] mg/mL) 0.25% injection (CANCELED) PRN, Starting on Saarh 07/18/23 at 0802, Until Sarah 12 at 1317, Intra-Operative (Intra-Procedure), Routine 0802 (Given - Provid er: Ren Sandhu MD) HYDROmorphone (Dilaudid) (0.2 mg/1 mL) injection syringe 0.4 mg (CANCELED)(Linked Group 1) 0.4 mg, Intravenous, EVERY 10 MIN PRN, Starting on Sarah 12/03/03 at 0908, Until Sarah 12 at 1011, [...] Until Sarah 07/18/23 at 1011, Pain, For Mild to Moderate [...] Routine documented in this encounter Care Teams Branch Operations Specialist Relationship Specialty Start Date End Date Saumya Felipe APRN [address] [place] [address] PCP - General Family Medicine 12/31/22 documented as of this encounter
--- OUTSIDE RECORDS SUMMARY | 2024-05-25 14:49 | XMS_ITS | Encounter Summary ---
Author Organization [facility] Address [facility] [place] [address] Care Team Providers Care Vp Celebrity Services Name Role Phone Saumya Felipe APRN Primary Care Provider Encounter Details Date Type Department Care Team (Late st Contact Info) Description 05/18/2024 3:30 PM EDT Clinical Support [place] [address] [facility] [place] [address] Class 2 obesity with body mass index (BMI) of 36.0 to 36.9 in adult, unspecified obesity type, unspecified whether serious comorbidity present Social History Tobacco Use Types Packs/Day Years Used Date Smoking Tobacco: Former Cigarettes 0.5 2 0 03/27/2006 - 03/27/2008 Smokeless Tobacco: Never Alcohol Use Standard Drinks/Week Comments Yes 0 (1 standard drink = 0.6 oz pur e alcohol) once per month [facility] Inpatient Questions Answer Date Recorded Does Anyone [...] Pulse 83 05/18/2024 3:39 PM EDT Temperature - - Respiratory Rate - - Oxygen Saturation - - Inhaled Oxygen Concentration - - Weight 101.3 kg (223 lb 4.8 oz) 05/18/2024 3:39 PM EDT Height 167.6 cm (5' 6) 05/18/2024 3:39 PM EDT Body Mass Index 36.04 05/18/2024 3:39 PM EDT documented in this encounter Patient Instructions * Patient Instructions* Kamilla Marlow RD - 05/18/2024 3:30 PM EDT It was great to chat with you, Tiffanie. Below are goals discussed today as well as in past visits. Please reach out with a Qufenqi message if you have any questions or concerns. Kamilla Bejarano Nutrition -Continue with adequate fiber intake (25 grams per day) and protein intake (60- 80 grams per day) documented in this encounter Progress Notes * Kamilla Marlow RD - 05/18/2024 3:30 PM EDT Nutrition Intervention for Weight Management Follow-up RD visit with KAILEY Sierra 1985 Weight Today: Wt Readings from Last 3 Encounters: 05/03/24 102.1 kg (225 lb) 04/03/24 101 kg (222 lb 11.2 oz) 03/13/24 104.1 kg (229 lb 9.6 oz) BMI Readings from Last 3 Encounters: 05/03/24 37.44 kg/m?? 04/03/24 37.06 kg/m?? 03/13/24 38.21 kg/m?? Pertinent Meds: wegovy .5 for a couple of months. Interview: This is Tiffanie's second dietary visit. She notes things are going well. She was dealing with constipation recently, between wegovy and different meds. She was off wegovy when she had carpaltunnel surgery last week. Wt loss history: 2019 RNY. Lost weight with each . Food Tracking: not currently Typical Dietary Intake: focusing on protein and adequate fiber intake. Finds herself not wanting toeat, urge is declining. B: protein oatmeal or premier protein or overnight oats w yogurt, sandra seeds S: cheese and grapes, maybe some pretzels or rice cakes with PB L: if more protein here, will have less at dinner D: S: Typical Beverages: [] coffee / tea [x] water - (total: 48 oz [x] plain [] sugar-free additive [] seltzer [] diet soda or other [] regular soda [] Juice or other sugar-sweetened [] Milk [] Alcohol - (How much? Appetite/Hunger: [] Poor appetite r/t [x] Currently well-managed [] Not managed (see interview) Activity [x] Reviewed current goals [] Updated Goals Nutrition topics covered today: [x] Eating an appropriate amount of food for your body, limitations of caloric restriction and under eating [x] Drinking an appropriate amount of fluid for your body [] Grazing / skipping / restricting [] Unplanned eating [x] Scheduled times / frequency of eating [] Reduce highly processed foods, refined carbohydrates, in favor of whole foods [] Reduce sweet taste in your diet (whether by sugar or non-nutritive sweeteners) [] Heart healthy fatty acids [x] Increase fruits and non-starchy veggies [x] Increase fiber through f&v, nuts/seeds, whole grains, legumes (goal of 22-28 g/day women ; 28-34 g/day men) [x] Adequate protein intake (handout provided? [] ) [] Foods rich in pre/probiotics [] Meal planning [] Reduce sodium intake to goal of 2300 mg or less per day, 1500 mg lower target with cardiovascular risk factors or disease Nutrition Assessment: [x] Needs additional dietary support to reach nutrition goals. Follow up plan below. [] No further RD visits to be scheduled at this time as patient and this automatic typewriter inspector have agreed that: [] Nutrition needs being met, no further support is needed [] Current barriers make nutrition intervention inappropriate at this time, may revisit in the future Barriers: None noted Nutrition Goals updated today: Goals Addressed This Visit's Progress Nutrition -Continue with adequate fiber intake (25 grams per day) and protein intake (60- 80 grams per day) Handouts provided today: Monitor/Evaluate: Return in about 3 months (around 08/18/2024) for RD, Either In Person or Telehealth, FUV. Thank you, Kamilla Marlow RD, LD 30 minutes were spent lbxt-[id number]-gynp with this patient today, whether in person or by zoom as specified above documented in this encounter Plan of Treatment Upcoming Encounters Date Type Department Care Team (Late st Contact Info) Description 06/02/2024 8:00 AM EDT Office Visit Gastroenterology at [place] [phone] Julienne Lacey APRN [facility] [place] [address] 07/24/2024 1:30 PM EST Office Visit [place] [address] Jenni Brennan MD [facility] [place] [address] documented as of this encounter Goals Goal Patient Goal Type Associated Problems Recent Progress Patient-Stated? Author Nutrition Exercise No Kamilla Marlow RD Note: -Continue with adequate fiber intake (25 grams per day) and protein intake (60- 80 grams per day) documented as of this encounter Visit Diagnoses Diagnosis Class 2 obesity with body mass index (BMI) of 36.0 to 36.9 in adult, unspecified obesity type, unspecified whether serious comorbidity present documented in this encounter Care Teams Vp Celebrity Services Relationship Specialty Start Date End Date Saumya Felipe APRN [address] [place] [address] PCP - General Family Medicine 12/31/22 documented as of this encounter
--- OUTSIDE RECORDS SUMMARY | 2024-05-25 14:49 | XMS_ITS | Encounter Summary ---
Author Organization [facility] Address [facility] [place] [address] Care Team Providers Care Starch Mangle Tender Name Role Phone Saumya Felipe APRN Primary Care Provider [phone] Encounter Details Date Type Department Care Team (Late st Contact Info) Description 04/03/2024 2:15 PM EDT TH Visit (TeleHealth) [place] [address] Jenni Brennan MD [facility] [address] Class 2 obesity with body mass index [...] Sign Reading Time Taken Comments Blood Pressure - - Pulse - - Temperature - - Respiratory Rate - - Oxygen Saturation - - Inhaled Oxygen Concentration - - Weight 101 kg (222 lb 11.2 oz) 04/03/20 24 2:12 PM EDT self report Height - - Body Mass Index 37.06 01/22/2024 9:34 AM EDT documented in this encounter Patient Instructions * Patient Instructions* Jenni Brennan MD - 04/03/2024 2:15 PM EDT The side effect of constipation is commonly seen on your medication. This can be a termite helper problem. Following specific dietary recommendations may help relieve symptoms. If your constipation has not improved or worsens with dietary changes and fiber supplementation as described below, please consider the gukg-mvw-kbkhnyt recommendations listed in 2-4. If you have any questions please message orcall your provider: [phone] I highly recommend starting immediately with a fiber regimen to prevent onset of constipation 1. A daily fiber regimen requires buying one of the below options which are over the counter: Begin Metamucil, benefiber or psyllium husk fiber (make sure it is free of artificial sweetener): 1tsp daily for one week, then 2tsp daily for one week, then 3tsp (1TBSP) daily. You may increase slowly up to 2 TBSP daily. Increase according to what works best for you. This may cause bloating initially but this will improve with continued use. If this supplement causes too much bloating you may try Citrucel. You can also add prunes and kiwi into your diet 80 ounces or more of water daily - you must INCREASE your fluid intake when taking fiber supplements. Other Tips Hydration: Goal is 80 ounces of water a day (or other sugar-free liquids). Dietary fiber: A daily fiber intake of 25+ g/day is generally recommended. The effects of fiber on bowel movements may take several weeks. Bloating and passing gas (flatulence) is a common problem with increased fiber intake, it is ok to take Gas-X or Simethicone (over the counter options) as needed for bloating / gas. Increase physical activity Ensure your diet is healthy and balanced 2. If #1 doesn't work consider a laxative like Miralax (17g/day) 1 capful a day - this is an osmotic laxative which works by putting more water into your colon, which makes the stool softer. Again increase your water even more while taking Miralax 3. If this doesn't work try Bisacodyl 10 mg daily 4. If this doesn't work, call your providers office or send a Constant Contact message to your provider for dose reduction and/or we may need to order xray of abdomen Mindful Eating habits [] Eat slowly [] Stop eating when you have a feeling of fullness [] Eat regular meals (appetite decreases with medications - try to eat at least 3 x day even if youare not 'hungry' - focus on protein, or even a protein shake is ok) [] Eat smaller portions (measure out your portions to 1 cup of food) [] Avoid lying down after having a meal [] Avoid drinking using a straw [] Eat without distractions and enjoy the process : savoring the food (mindful eating) [] Try not to be too active right after eating [] Avoid eating too close to bedtime [] Increase fluid intake, especially clear, fresh drinks (in small sips), but no so much as to makeyou feel too full Food choices and helpful suggestions [] Healthy food that contains water (soups, liquid yogurt, gelatin, and others) can also help increase your fluid intake [] Get some fresh air and do some light exercise [] Keep a food diary, as it may be useful to identify foods or meal timings that make it worse documented in this encounter Progress Notes * Jenni Brennan MD - 04/03/2024 2:15 PM EDT CHIEF COMPLAINT: F/u for treatment of 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 This is follow up [facility] visit for this 39 y.o. patient. Weight gain due to: genetic [...] surgery on legs, stop regain Today's weight: 222.7 Change since prior: -12 [facility] Team: Jenni Brennan MD, referred to RD 10/30/23 HPI TODAY PATIENT REPORTS AOM: Currently taking: Qsymia maxmal dose since October 2023 Wegovy 0.5mg -will take second shot of this dose on Sudnay . Some nausea. More constipated than usual - stool softeners routinely/fiber routinely/Miralax 1-2 times per week, suppository twice. Water 80-100oz. No neg ASE ANTI-OBESITY MEDICINE Attempt at lifestyle change number of months: Since 2018, activity > 150 min per week, appropriate caloric intake, WC 46in History of Bariatric Surgery: Yes If yes, enter date: 2018 RNY CURRENT MEDICATIONS Current Med(s): Semaglutide and Phentermine/Topiramate AOM TIMELINE Medications: Phentermine-topiramate and Semaglutide Phentermine-topiramate Start Date: 09/11/2023 Phentermine-topiramate Start Weight: 241 Phentermine-topiramate End Date: 04/03/2024 Reason ended Phentermine-topiramate: Non-responder (<5% weight loss) (lost 7# total on Qsymia before adding Wegovy. Stopped d/t constipation with addition of wegovy) Semaglutide Start Date: 01/22/2024 Semaglutide Start Weight: 234 Semaglutide 5% weight loss achieved (date): 04/03/2024 AOM CONTRAINDICATIONS/CAUTIONS : Hx migraines. The current [...] working with PCP Self-monitoring: VITAL SIGNS: Vitals: 04/03/24 1412 Weight: 101 kg (222 lb 11.2 oz) Body mass index is 37.06 kg/m??. PHYSICAL EXAM: Gen: Alert and appropriate, [...] treatment: Anxiety, Depression, and Migraine d/o AOM: d/c top/phen since this has only small effect and can contribute to constpation; continue Wegovy;0.5mg until she plateaus since weight loss thus far has been excellent and to assess if constipation will get better over time. Also increase fiber - reviewed slow titration. 04/03/24 Anticipatory guidance provided for side effect of constipation on GLP1 RA's. (See AVS for specific instructions) NUTRITION: f/u in [address] to assess adequacy of intake on new GLP Diagnoses and all orders for this visit: Class 2 obesity with body mass index (BMI) of 37.0 to 37.9 in adult, unspecified obesity type, unspecified whether serious comorbidity present - semaglutide, weight loss, (Wegovy) 0.5 mg/0.5 mL Pen Injector; Inject 0.5 mg subcutaneously once a week. Indications: maintaining at low dose to manage side effect No orders of the defined types were placed in this encounter. Return for follow-up as scheduled. PRIOR LABS: Lab Results Component Value Date NA 142 12/20/2023 K 4.1 12/20/2023 CL 106 12/20/2023 CO2 26 12/20/2023 BUN 8 12/20/2023 CREATININE 0.7 12/20/2023 GLUCOSE 116 12/20/2023 CALCIUM 8.8 12/20/2023 ESTGFR 113.46 12/20/2023 Lab Results Component Value Date [id number] 09/30/2023 documented in this encounter Plan of Treatment Upcoming Encounters Date Type Department Care Team (Late st Contact Info) Description 06/02/2024 8:00 AM EDT Office [place] [address] Julienne Lacey APRN [facility] [place] [address] 07/24/2024 1:30 PM EST Office Visit [place] [phone] Jenni Brennan MD [facility] [address] [facility] [place] [address] documented as of this encounter Visit Diagnoses Diagnosis Class 2 obesity with body mass index (BMI) of 37.0 to 37.9 in adult, unspecified obesity type, unspecified whether serious comorbidity present- Primary documented in this encounter Care Teams Starch Mangle Tender Relationship Specialty Start Date End Date Saumya Felipe APRN [address] [place] [address] PCP - General Family Medicine 12/31/22 documented as of this encounter
--- OUTSIDE RECORDS SUMMARY | 2024-05-25 14:49 | XMS_ITS | Encounter Summary ---
Author Organization [facility] [place] [address] Care Team Providers Care Harvest Worker Field Crop Name Role Phone Saumya Felipe APRN Primary Care Provider [phone] Reason for Referral * Consultation (Urgent) - Authorized Specialty Diagnoses / Procedures Referred By Contac t Referred To Contact Gastroenterology Diagnoses Constipation, unspecified constipation type constipation Saumya Felipe APRN [address] [place] [address] [facility] [address] [place] [phone] Referral ID Status Reason Start Date Expiration Date Visits Requested Visits Authorized [id number] Authorized Consult, Test & Treat PCP Updated and/or Approved 04/29/2024 04/29/2025 6 6 Encounter Details Date Type Department Care Team (Latest Contact Info) Description 04/29/2024 Transcribe Orders eDH Incoming Referrals [phone] Saumya Felipe APRN [address] [place], [place] [id number] Constipation, unspecified constipation type Social History Tobacco Use Types Packs/Day Years [...] 8:00 AM EDT Office [place] [address] Julienne Lacey APRN [facility] [place] [address] 07/24/2024 1:30 PM EST Office Visit [place] [phone] Jenni Brennan MD [facility] DR [facility] [address] Scheduled Referrals Name Type Priority Associated Diagnoses Order Schedule Referral to Gastroenterology Outpatient Referral Urgent Constipation, unspecified constipation type Ordered: 04/29/2024 documented as of this encounter Visit Diagnoses Diagnosis Constipation, unspecified constipation type documented in this encounter Care Teams Harvest Worker Field Crop Relationship Specialty Start Date End Date Saumya Felipe APRN [address] [place] [address] PCP - General Family Medicine 12/31/22 documented as of this encounter
--- OUTSIDE RECORDS SUMMARY | 2024-05-25 14:49 | XMS_ITS | Encounter Summary ---
Author Organization [facility] Address [facility] [place] [address] Care Team Providers Care Surgical Technologist Name Role Phone Saumya Felipe APRN Primary Care Provider [phone] Encounter Details Date Type Department Care Team (Latest Contact Info) Description 10/30/2023 Travel Social History Tobacco Use Types Packs/Day [...] 8:00 AM EDT Office [place] [phone] Julienne Lacey APRN [facility] [place] [address] 07/24/2024 1:30 PM EST Office Visit [place] [phone] Jenni Brennan MD [facility] DR [facility] [address] documented as of this encounter Visit Diagnoses Not on filedocumented in this encounter Care Teams Surgical Technologist Relationship Specialty Start Date End Date Saumya Felipe APRN [address] [place] [address] PCP - General Family Medicine 12/31/22 documented as of this encounter
--- OUTSIDE RECORDS SUMMARY | 2024-05-25 14:49 | XMS_ITS | Encounter Summary ---
[place] [address] Care Team Providers Care Branch Controller Name Role Phone Saumya Felipe APRN Primary Care Provider [phone] Reason for Visit * Reason Comments Prior Authorization Wegovy 0.25 mg/0.5 m l SOAJ Encounter Details Date Type Department Care Team (Late st Contact Info) Description 01/23/2024 Specialty [place] [address] Yang Melgoza, [facility] Social History Tobacco Use Types Packs/Day Years [...] as of this encounter Progress Notes * Yang Melgoza CPHT - 01/23/2024 1:01 PM EDT [facility], Medication Prior Authorization Submission Patient: Tiffanie Machucauart Patient : 1985 Patient Address: [address] [facility] [address] Phone: [phone] (home) Medication Name: WEGOVY 0.25 MG/0.5 ML SUBCUTANEOUS PEN INJECTOR Medication ID: [id number] Subscriber Insurance: Subscriber Insurance Comment: [facility] Fax: Physician: GLADYS GARRETT Physician Comment: Sent Via: [facility] Armando: [id number] Ref/Case/PA#: Medication Strength Frequency Requested: Wegovy 0.25 mg/0.5 ml SOAJ Inject 0.25 mg Subcutaneously Once Weekly Qty/Day Supply: 10/09 New Start: New to Therapy Diagnosis & ICD-10 Code: [id number] & BMI Z68.38 Patient Notified: Yes Submission Notes: - New Medication Yang Melgoza CPHT 01/23/24 1:03 PM documented in this encounter Plan of Treatment Upcoming Encounters Date Type Department Care Team (Late st Contact Info) Description 06/02/2024 8:00 AM EDT Office [place] [phone] [facility] [place] [address] 07/24/2024 1:30 PM EST Office Visit [place] [phone] [facility] [address] [facility] [place] [address] documented as of this encounter Visit Diagnoses Not on filedocumented in this encounter Care Teams Branch Controller Relationship Specialty Start Date End Date Saumya Felipe APRN [address] [place] [address] PCP - General Family Medicine 12/31/22 documented as of this encounter
--- OUTSIDE RECORDS SUMMARY | 2024-05-25 14:49 | XMS_ITS | Encounter Summary ---
Author Organization [facility] [place] [address] Care Team Providers Care Electrician Name Role Phone Saumya Felipe APRN Primary Care Provider [phone] Encounter Details Date Type Department Care Team (Latest Contact Info) Description 04/30/2023 9:30 AM EDT Laboratory Appointment Lab [address] [place] [address] Post-resection malabsorption; Status post bariatric surgery Social History Tobacco Use Types Packs/Day Years [...] 8:00 AM EDT Office [place] [phone] Julienne Lacey APRN [facility] DR [place]STRO[place] [address] 07/24/2024 1:30 PM EST Office Visit [place] [address] Jenni Brennan MD [facility] [place] [address] documented as of this encounter Procedures Procedure Name Priority Date/Time Associated Diagnosis Comments VITAMIN D, 25-HYDROXY Routine 04/30/2023 9:43 AM EDT Post-resection malabsorption Status post bariatric surgery FERRITIN Routine 04/30/2023 9:43 AM EDT Post-resection malabsorption Status post bariatric surgery documented in this encounter Results * Ferritin (04/30/2023 9:43 AM EDT) Ferritin 21 15 - 150 ng/mL [facility] Comment: Pediatric reference ranges not verified at [facility], interpret with caution. Reference ranges for females greater than 50 years of age approach values for men, i.e., 30-400 ng/mL. Blood 04/30/2023 9:43 AM EDT 04/30/2023 9:55 AM EDT Narrative Resulting Agency Comment Spec In Lab Luz E [employer] WASHING MACHINE STRIPER CHEMISTRY ORDERABL ES Performing Organization Address City/[facility]/ZIP Co de Phone Number [facility] [place] [address] * Vitamin D, 25-Hydroxy (04/30/2023 9:43 AM EDT) Vitamin D Total 25 OH 28 21 - 100 ng/mL [facility] Vit D Interp Insufficient [facility] Blood 04/30/2023 9:43 AM EDT 04/30/2023 9:55 AM EDT Narrative Resulting Agency Comment Spec In Lab Luz E [employer] WASHING MACHINE STRIPER CHEMISTRY ORDERABL ES Performing Organization Address City/[facility]/ZIP Co de Phone Number [facility] [place] [address] documented in this encounter Visit Diagnoses Diagnosis 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
--- OUTSIDE RECORDS SUMMARY | 2024-05-25 14:49 | XMS_ITS | Encounter Summary ---
Author Organization [facility] Address [facility] [place] [address] Care Team Providers Care Chemical Processing Laborer Name Role Phone Saumya Felipe APRN Primary Care Provider [phone] Encounter Details Date Type Department Care Team (Latest Contact Info) Description 09/30/2023 Travel Social History Tobacco Use Types Packs/Day [...] 8:00 AM EDT Office [place] [phone] Julienne Lacey APRN [facility] [address] 07/24/2024 1:30 PM EST Office Visit [place] [phone] Jenni Brennan MD [facility] DR [facility] [place] [address] documented as of this encounter Visit Diagnoses Not on filedocumented in this encounter Care Teams Chemical Processing Laborer Relationship Specialty Start Date End Date Saumya Felipe APRN [address] [place] [address] PCP - General Family Medicine 12/31/22 documented as of this encounter
--- OUTSIDE RECORDS SUMMARY | 2024-05-25 14:49 | XMS_ITS | Encounter Summary ---
Author Organization [facility] Address [facility] [place] [address] Care Team Providers Care Assistant Passenger Locomotive Engineer Name Role Phone Saumya Felipe APRN Primary Care Provider [phone] Encounter Details Date Type Department Care Team (Latest Contact Info) Description 04/30/2023 Travel Social History Tobacco Use Types Packs/Day [...] 8:00 AM EDT Office [place] [phone] Julienne Lacey APRN [facility] [place] [address] 07/24/2024 1:30 PM EST Office Visit [place] [phone] Jenni Brennan MD [facility] DR JANET PALENC[facility]-[place] [address] documented as of this encounter Visit Diagnoses Not on filedocumented in this encounter Care Teams Assistant Passenger Locomotive Engineer Relationship Specialty Start Date End Date Saumya Felipe APRN [address] [place] [address] PCP - General Family Medicine 12/31/22 documented as of this encounter
--- OUTSIDE RECORDS SUMMARY | 2024-05-25 14:49 | XMS_ITS | Encounter Summary ---
Author Organization [facility] Address [facility] [place] [address] Care Team Providers Care Climate Change Risk Assessor Name Role Phone Saumya Felipe APRN Primary Care Provider [phone] Encounter Details Date Type Department Care Team (Latest Contact Info) Description 08/20/2023 Travel Social History Tobacco Use Types Packs/Day [...] 8:00 AM EDT Office [place] [phone] Julienne Lacey APRN [facility] [place] [address] 07/24/2024 1:30 PM EST Office Visit [place] [phone] Jenni Brennan MD [facility] DR JANET PALENC[facility] [address] documented as of this encounter Visit Diagnoses Not on filedocumented in this encounter Care Teams Climate Change Risk Assessor Relationship Specialty Start Date End Date Saumya Felipe APRN [address] [place] [address] PCP - General Family Medicine 12/31/22 documented as of this encounter
--- OUTSIDE RECORDS SUMMARY | 2024-05-25 14:49 | XMS_ITS | Encounter Summary ---
[place] [address] Care Team Providers Care Jumpbasting Lining Baster Name Role Phone Saumya Felipe APRN Primary Care Provider [phone] Reason for Visit * Reason Onset Date Comments Prior Authorization 09/12/2023 phentermine- topiramate (Qsymia) 3.75-23 mg ER 24 hr capsule Encounter Details Date Type Department Care Team (Late st Contact Info) Description 09/12/2023 Telephone [place] [phone] Blossom Palacios CMA Prior Authorization (phentermine-topiramate (Qsymia) 3.75-23 mg ER 24 hr capsule ) Social History Tobacco Use Types Packs/Day Years [...] encounter Miscellaneous Notes * Telephone Encounter - Blossom Palacios CMA - 09/12/2023 4:34 PM EST Summary: PA approval Submitted Date: Submitted Date: 09/12/2023 Next Review Date: Next Review Date: zi PA Outcome: PA Approval Medication Prior Authorization Approval Approved: Qsymia 3.75-23MG er capsules Start Date: 09/12/2023 End Date: 03/12/2024 Case/Reference #: [id number] Approval Letter will be scanned into media once received. * Telephone Encounter - Blossom Palacios CMA - 09/12/2023 3:32 PM EST Summary: PA PA Submitted Submitted Date: Date Submitted: 09/12/2023 Medication Prior Authorization Patient: Tiffanie Monreal Patient : 1985 Insurance Company: [employer] Sent via: [employer] Armando: [id number] Physician: Jenni Brennan MD Medication Requested: phentermine-topiramate (Qsymia) 3.75-23 mg ER 24 hr capsule Frequency/Sig: Take 1 capsule by mouth daily for 14 days, THEN 2 capsules daily for 14 days. Call for next refill Disp: 42 Refills: 0 Currently taking: no If yes, how long: na Diagnosis for this medication: Class 3 severe obesity with body mass index (BMI) of 40.0 to 44.9 inadult, unspecified obesity type, unspecified whether serious comorbidity present [E66.01, Z68.41] Additional Notes: PREVIOUS LABS AND IMAGING: Reviewed Last [facility] Lab Results Component Value Date NA 139 11/05/2022 K 4.2 11/05/2022 CL 104 11/05/2022 CO2 23 11/05/2022 BUN 10 11/05/2022 CREATININE 0.55 (L) 11/05/2022 GLUCOSE 96 11/05/2022 CALCIUM 9.5 11/05/2022 ESTGFR 121 11/05/2022 ASSESSMENT AND PLAN Tiffanie Monreal is a 38 y.o. female with uncontrolled OBESITY WITHOUT EVIDENCE OF METABOLIC DISEASE s/p bariatric surgery in 2019 who presented to [facility] [place] [facility] today for medical evaluation with associated complications as below. INITIAL EVALUATION: FACTORS CONTRIBUTING TO OBESITY/INTERVENTION Obesogenic meds: Neuropathic pain control Plan: recommend stopping if topiramate is tolerated and controls migraines Metabolic Complications addressed with weight loss: Other Complications to address with weight loss: Migraine d/o AOM: Start Qsymia or generics with the hop that phentermien will counteract the fogginess she experienced on topiramate in the past.. Patient will contact insurance about GLP coverage Referrals: none LIFESTYLE INTERVENTIONS Nutrition: discussed whole food, quality diet; specific recommendations including appropriate caloric restriction per RD Good base knowledge Behavior: NO CONCERN FOR DISORDERED EATING Activity: provided exercise booklet, Meeting recommendations Barriers: []needs cardiac eval []injury/pain preventing activity right now Stress Management: patient has good insight into this Sleep: associated with higher stress, working with PCP Self-monitoring: Groups: deferred until second visit except: Discussion 09/11/23: Pillars, Medication options with r/b Diagnoses and all orders for this visit: Class 3 severe obesity with body mass index (BMI) of 40.0 to 44.9 in adult, unspecified obesity type, unspecified whether serious comorbidity present - phentermine-topiramate (Qsymia) 3.75-23 mg ER 24 hr capsule; Take 1 capsule by mouth daily for 14days, THEN 2 capsules daily for 14 days. Call for next refill Peak weight/date: 311, 2017? (302 per chart in 2011) Nadire post op: 200# 11/19/18 Initial weight 09/11/23: 241 Initial Body mass index is 40.46 kg/m??. Goals: less join pain, decrease weight to have surgery on legs, stop regain Weight History: Date Weight (lbs) Height (inches) [...] 33% 41.4 4 yrs, 3 mo post-op documented in this encounter Plan of Treatment Upcoming Encounters Date Type Department Care Team (Late st Contact Info) Description 06/02/2024 8:00 AM EDT Office [place] [address] [facility] [place] [address] 07/24/2024 1:30 PM EST Office Visit [place] [phone] [facility] [address] [place] [address] documented as of this encounter Visit Diagnoses Not on filedocumented in this encounter Care Teams Jumpbasting Lining Baster Relationship Specialty Start Date End Date Saumya Felipe APRN [address] [place] [address] PCP - General Family Medicine 12/31/22 documented as of this encounter
--- OUTSIDE RECORDS SUMMARY | 2024-05-25 14:49 | XMS_ITS | Encounter Summary ---
Author Organization [facility] [place] [address] Care Team Providers Care Centrifugal Screen Tender Name Role Phone Matteo Saumya LARA Primary Care Provider [phone] Reason for Visit * Auth/Cert (Routine) Specialty Diagnoses / Procedures Referred By Contesdras t Referred To Contact Diagnoses S/P bariatric [...] EGD, UPPER GI ENDOSCOPY (WRVU 2.09) Jerica Dubose MD [facility] [place] [address] [facility] Referral ID Status Reason Start Date Expiration Date Visits Re quested Visits Authorized [id number] 1 1 Encounter Details Date Type Department Care Team (Late st Contact Info) Description 07/18/2023 7:30 AM EST Anesthesia Event [place] [phone] Shan Huerta MD [facility] [place] [address] Norbert Bass Anesthesia Record Procedure Summary Procedure Name Responsible Anesthesiologist Anesthesia Start Time Anesthesia Stop Time LAPAROSCOPY, DIAGNOSTIC, ABDOMEN (WRVU 5.14) (Abdomen) Shan Huerta MD 07/18/23 0730 07/18/23 0901 Events Date Time Event Comment 07/18/2023 0701 0730 AN Verify 0730 Start 0733 An Start Data 0741 An Induction 0743 An Intubation 0744 Anesthesia Ready 0850 Extubation/LMA Out 0853 an stop data 0901 Recovery or ICU Handoff Corine ent care was transferred to the destination unit staff after review of the patient's medical history, current anesthetic/surgical status and plan, according to the Provider Handoff Checklist. 0901 Stop Meds Name Total Midazolam 2 mg fentaNYL 100 mcg IV Lidocaine 100 mg Propofol 270 mg Propofol INF 660.79 mg dexmedeTOMIDine INF 53.12 mcg Rocuronium 130 mg PHENYLephrine 80 mcg Ondansetron 8 mg Dexamethasone 8 mg ceFAZolin (Ancef) 2 g vial a ttach to sodium chloride 0.9% 100 mL Mini-Bag Plus 2 g HYDROmorphone 0.4 mg sugammadex 200 mg lactated ringers 700 mL * Agents Name O2 * Blood No blood administrations on file. Lines, Drains, and Airways Type Details Placement Removal Incision 07/18/23; 0802; abdo men; laparoscopic punctures (specify) 07/18/23 0802 by Kezia Sheppard RN Incision 07/04/21; 1058; abdo men; horizontal; LDA not present upon assessment; 07/18/23; 73107/04/21 1058 by Belem Page RN 07/18/23 0732 by Kezia Sheppard RN Drain/Device Site 07/04/21; 1135; othe r (see comments) (center); midline; abdomen; collapsible closed device; Drain not present upon arrival to OR suite; 07/18/23; 73107/04/21 1135 by Belem Page RN 07/18/23 0732 by Kezia Sheppard RN PIV 07/18/23; 0655; 20 g auge; median cubital vein (antecubital fossa), right; Sally AN; distraction; 07/18/23; 1049 07/18/23 0655 by Edyta Zavala RN 07/18/23 1049 by Natalia Cuello RN ETT Mask Ventilation: Ea sy (1); ETT Type: Oral; ETT Size: 7 mm; Mac Blade: 3; Notes: Asleep, Pre-O2, Stylette; Attempts: 1; Laryngoscopy Grade: 1; ETT Placement Verified By: Auscultation, Capnometry, Visual; Secured at Teeth: 22 cm; Inserted by: ARMAND Montes; Removal Date: 07/18/23; Removal Time: 0850 07/18/23 0748 by Norbert Bass 07/18/23 0850 by Norbert Bass documented in this encounter Social History Tobacco [...] OR Notes * Anesthesia Postprocedure Evaluation - Shan Huerta MD - 07/18/2023 9:01 AM EST Department of Anesthesiology Post-procedure Note Patient: Tiffanie Monreal Procedure Summary Date: 07/18/23 Room / Location: [address] MAIN OR Anesthesia Start: 729 Anesthesia Stop: 900 Procedures: LAPAROSCOPY, DIAGNOSTIC, ABDOMEN (WRVU 5.14) (Abdomen) EGD, UPPER GI ENDOSCOPY (WRVU 2.09) (Esophagus) Diagnosis: (s/p bariatric surgery) Surgeons: Jerica Dubose MD Responsible Provider: Shan Huerta MD Anesthesia Type: general ASA Status: 3 All Anesthesia Providers: Anesthesiologist: Shan Huerta MD Student Nurse Last Waxer: Norbert Bass Vitals Value Taken Time BP 107/65 07/18/23 0900 Temp 37.1 ??C (98.8 ??F) 07/18/23 0856 Pulse 69 07/18/23 0901 Resp 23 07/18/23 0901 SpO2 100 % 07/18/23 09 Pain Level Vitals shown include unfiled device data. Patient Location: PACU/[facility] Level of Consciousness: Awake and Alert Pain Management: Satisfactory Analgesia PONV: None Cardiovascular Status: At Baseline and Hemodynamically Stable Respiratory Status: At Baseline and Room Air Postoperative Fluid Status: Intravascular EUvolemia Possible Anesthetic Complications: NONE apparent at time of evaluation Final Primary Anesthesia Type: General (The anesthetic type performed was the same as planned.) Comments: Shan Huerta MD * Anesthesia Preprocedure Evaluation - Shan Huerta MD - 07/18/2023 6:58 AM EST Pre-Anesthesia Evaluation for: Tiffanie Monreal a 38 y.o. female. Procedure(s): LAPAROSCOPY, DIAGNOSTIC, ABDOMEN (WRVU 5.14) COLONOSCOPY, DIAGNOSTIC (WRVU 3.26) ENDOSCOPY, UPPER GI, DIAGNOSTIC, WITH OR WITHOUT SPECIMENS (WRVU 2.09) Patient Active Problem List Diagnosis Date Noted [...] 6.37) performed by Alfredo Torrez MD at [facility] OSC ??? PRO EXCISE EXCESS SKIN TISSUE, ABDOMEN N/A 01/03/2021 PANNICULECTOMY performed by Beau Torrez MD at [facility] MAIN OR ??? PRO LAP GASTRIC BYPASS/SHELBIE-EN-Y N/A 09/30/2018 @LAPAROSCOPIC GASTROPLASTY, (WRVU 29.4) performed by Jerica Dubose MD at [facility] MAIN OR ??? PRO UPPER GI ENDOSCOPY, DIAGNOSTIC N/A 09/30/2018 ENDOSCOPY, UPPER GI, DIAGNOSTIC, WITH OR WITHOUT SPECIMENS [facility]?? PRO UPPER GI ENDOSCOPY, DIAGNOSTIC N/A 04/14/2020 EGD, UPPER GI ENDOSCOPY performed by Jerica Dubose MD at [facility] MAIN OR ??? TUBAL LIGATION Bilateral 2007 Social History Tobacco Use ??? Smoking status: Former Packs/day: 0.50 Years: 2.00 Additional pack years: 0.00 Total pack years: 1.00 Types: Cigarettes Quit date: 03/27/2008 Years since quittin.3 ??? Smokeless tobacco: Never Substance Use Topics [...] Physical Exam: Preprocedure Vitals Current as of 07/18/23 0658 BP: 109/75 Pulse: 65 Resp: 18 SpO2: 100 Temp: 36.8 ??C (98.2 ??F) Height: 165.1 cm (5' 5) (07/18/23) Weight: 109.9 kg (242 lb 4.8 oz) (07/18/23) BMI: 40.32 IBW: 57 kg (125 lb 10.6 oz) Last edited 07/18/23 0615 by AL Airway Assessment: Mallampati: II TM distance: >3 FB Neck ROM: full Cardiovascular Assessment: Rhythm: regular Rate: normal system normal Pulmonary Assessment: unlabored breathing Dental Assessment: (+) upper dentures and lower dentures Misc Assessment: Patient is wearing No contact(s). IV access: Peripheral line Last Filed Perioperative Cognitive Screening None Anesthesia Plan: ASA 3 general, with a(n) intravenous induction 38-year-old 109.9 kg F with PMH: Obesity (BMI: 40.32 kg/m??), chronic pain (gabapentin), mood disorder (trazodone), patient presents here today for diagnostic laparoscopy, colonoscopy, EGD by the bariatric surgery and gastroenterology services. Allergies: Cough syrup [guaifenesin], spider venom, kiwi, dextromethorphan HPr, doxylamine succinate, pseudoephedrine NPO status: Appropriate Plan: GETA, PIV x 1, standard ASA monitors Region - Other Informed Consent: Anesthetic plan and risks discussed with patient. Plan discussed with ADDRESS CHANGE CLERK and attending. Anesthesia Screening documented in this encounter Plan of Treatment Upcoming Encounters Date Type Department Care Team (Late st Contact Info) Description 06/02/2024 8:00 AM EDT Office [place] [address] Julienne Lacey APRN [facility] [place] [address] 07/24/2024 1:30 PM EST Office Visit [place] [phone] Jenni Brennan MD [facility] DR J[place]ET [place] [address] documented as of this encounter Visit Diagnoses Not on filedocumented in this encounter Administered Medications Inactive Administered Medications - up to 3 most recent administrations Medication Order MAR Action Action Date Dose Rate Site ceFAZolin (Ancef) 2 g vial attach to sodium chloride 0.9% 100 mL Mini-Bag Plus 2 g, Intravenous, EVERY 4 HOURS, 1 dose, First dose on Sarah 07/18/23 at 0645, Administer over 30 Minutes, Intra-Operative (Intra-Procedure), Indication for (Active or Suspected): Prophylaxis New Bag 07/18/2023 7:41 AM EST 2 g dexAMETHasone (Decadron) injection Intravenous, PRN, Starting on Sarah 07/18/23 at 0741, Until Sarah 07/18/23 at 0901, Anesthesia Intra-op, Routine Given 07/18/2023 7:41 AM EST 8 mg dexmedeTOMIDine (Precedex) (4 mcg/mL) in sodium chloride 0.9% 50 mL infusion Intravenous, CONTINUOUS PRN, Starting on Sarah 07/18/23 at 0741, Until Sarah 07/18/23 at 0901, Anesthesia Intra-op New Bag 07/18/2023 7:41 AM EST 0.5 mcg/kg/hr 13.738 mL/hr fentaNYL (pf) (50 mcg/mL) multi-dose injection Intravenous, PRN, Starting on Sarah 07/18/23 at 0741, Until Sarah 07/18/23 at 0901, Anesthesia Intra-op, Routine Given 07/18/2023 7:41 AM EST 100 mcg HYDROmorphone (Dilaudid) (2 mg/mL) multi-dose injection solution Intravenous, PRN, Starting on Sarah 07/18/23 at 0832, Until Sarah 07/18/23 at 0901, Anesthesia Intra-op, Routine Given 07/18/2023 8:32 AM EST 0.4 mg lactated ringers infusion Intravenous, CONTINUOUS PRN, Starting on Sarah 07/18/23 at 0730, Until Sarah 07/18/23 at 0901, Anesthesia Intra-op New Bag 07/18/2023 7:30 AM EST lidocaine (pf) (Xylocaine) (20 mg/mL) 2% injection syringe Intravenous, PRN, Starting on Sarah 07/18/23 at 0741, Until Sarah 07/18/23 at 0901, Anesthesia Intra-op, Routine Given 07/18/2023 7:41 AM EST 100 mg midazolam (pf) (Versed) (1 mg/mL) multi-dose injection Intravenous, PRN, Starting on Sarah 07/18/23 at 0730, Until Sarah 07/18/23 at 0901, Anesthesia Intra-op, Routine Given 07/18/2023 7:30 AM EST 2 mg ondansetron (pf) (Zofran) (2 mg/mL) injection Intravenous, PRN, Starting on Sarah 07/18/23 at 0844, Until Sarah 07/18/23 at 0901, Anesthesia Intra-op, Routine Given 07/18/2023 8:44 AM EST 8 mg PHENYLephrine in NS (PF) (ORLY-SYNEPHRINE) 0.8 mg/10 mL (80 mcg/mL) multi-dose injection Syringe Intravenous, PRN, Starting on Sarah 07/18/23 at 0753, Until Sarah 07/18/23 at 0901, Anesthesia Intra-op, Routine Given 07/18/2023 7:53 AM EST 80 mcg propofoL (Diprivan) (10 mg/mL) infusion Intravenous, CONTINUOUS PRN, Starting on Sarah 07/18/23 at 0741, Until Sarah 07/18/23 at 0901, Anesthesia Intra-op, Routine Rate/Dose Change 07/18/2023 8:02 AM EST 125 mcg/kg/min 58.65 mL/hr Rate/Dose Change 07/18/2023 7:52 AM EST 100 mcg/kg/min 46. 92 mL/hr New Bag 07/18/2023 7:41 AM EST 200 mcg/kg/min 93.84 mL/ hr propofoL (Diprivan) 10 mg/mL bolus injection (Anesthesia) Intravenous, PRN, Starting on Asrah 07/18/23 at 0741, Until Sarah 07/18/23 at 0901, Anesthesia Intra-op Given 07/18/2023 8:05 AM EST 20 mg Given 07/18/2023 7:43 AM EST 50 mg Given 07/18/2023 7:41 AM EST 200 mg rocuronium (Zemuron) (10 mg/mL) multi-dose injection Intravenous, PRN, Starting on Sarah 07/18/23 at 0741, Until Sarah 07/18/23 at 0901, Anesthesia Intra-op, Routine Given 07/18/2023 8:37 AM EST 30 mg Given 07/18/2023 8:06 AM EST 10 mg Given 07/18/2023 7:57 AM EST 20 mg sugammadex (Bridion) 100 mg/mL injection Intravenous, PRN, Starting on Sarah 07/18/23 at 0845, Until Sarah 07/18/23 at 0901, Anesthesia Intra-op, Routine Given 07/18/2023 8:45 AM EST 200 mg documented in this encounter Care Teams Centrifugal Screen Tender Relationship Specialty Start Date End Date Saumya Felipe APRN [address] [place] [address] PCP - General Family Medicine 12/31/22 documented as of this encounter
--- OUTSIDE RECORDS SUMMARY | 2024-05-25 14:49 | XMS_ITS | Encounter Summary ---
Author Organization [facility] [place] [address] Care Team Providers Care Industrial Rehabilitation Consultant Name Role Phone Saumya Felipe APRN Primary Care Provider [phone] Encounter Details Date Type Department Care Team (Late st Contact Info) Description 12/23/2023 2:00 PM EDT Clinical Support [place] [address] [facility] [place] [address] Class 2 severe obesity with serious comorbidity and body mass index (BMI) of 39.0 to 39.9 in adult, unspecified obesity type Social History Tobacco Use Types Packs/Day [...] - Inhaled Oxygen Concentration - - Weight 107.6 kg (237 lb 3.2 oz) 12/23/2023 1:53 PM EDT Height - - Body Mass Index 39.47 10/30/2023 4:00 PM EDT documented in this encounter Patient Instructions * Patient Instructions* Kamilla Marlow RD - 12/23/2023 2:00 PM EDT It was great to chat with you, Tiffanie. Please reach out with a [employer] message if you have any questions or concerns. Kamilla documented in this encounter Progress Notes * Kamilla Marlow RD - 12/23/2023 2:00 PM EDT Nutrition Intervention for Weight Management New RD visit with Tiffanie Liz KAILEY Monreal 1985 Weight Today: Wt Readings from Last 3 Encounters: 12/23/23 107.6 kg (237 lb 3.2 oz) 10/30/23 107.7 kg (237 lb 8 oz) 09/30/23 107 kg (236 lb) BMI Readings from Last 3 Encounters: 10/30/23 39.52 kg/m?? 09/30/23 39.56 kg/m?? 09/11/23 40.46 kg/m?? Pertinent Meds: qysimia-seems to keep weight more stable. Interview: Tiffanie has been on qysimia to help continue weight loss, though she feels like she has plateaued-her overall wl with med was 5-6 lbs. She will discuss injectables with Dr. Brennan at next visit. She feels like her stress levels have decreased, has tools to help with management. Sleep-thinksis OK for the most part. Some lactose intolerance and whey protein intolerance. Can do sami yogurtand hard cheese. Not tracking intake. Met with bariatric team in September for follow-up s/p RNY 2018. Discussed increase in fiber, limit saturated fat intake. Movement: Feels like she is in the go all the time, on her feet, and uses the treadmill on her off days. Wt loss history: 2019 RNY. Lost weight with each . Food Tracking: not currently Typical Dietary Intake: If working nights, doesn't have time to eat a snack. Feels that she gets enough food on these days. Works until 8 pm. Metamucil-2 T/day B: eats bw 6-8 am. Protein shakes, drinks bw 6-730, then 30-60 min later, eats oatmeal or yogurt orsmoothie w protein powder or breakfast-BEC or cheese and egg on EM. Depends on work schedule L: days where she has more substantial B, eats about 1 pm-salad with chicken, veggies. Sometimes w added [place]. D: chicken and rice or other protein and veg, usually meat and veg. May have a wrap or dinner at 6 pm if working nights. S: yogurt and fruit or cheese and fruit. 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 [x] plain [] sugar-free additive [] seltzer [...] diet (whether by sugar or non-nutritive sweeteners) [x] Heart healthy fatty acids Limit sat fats [x] Increase fruits and non-starchy veggies [x] [...] at this time as patient and this fiction writer have agreed that: [] Nutrition needs being met, no further support is needed [] Current barriers make nutrition intervention inappropriate at this time, may revisit in the future Barriers: None noted Nutrition Goals updated today: Goals Addressed None Handouts provided today: protein, fiber, my plate Monitor/Evaluate: Return in about 2 months (around 02/22/2024) for RD, Either In Person or Telehealth, FUV. Thank you, Kamilla Marlow RD, LD 60 minutes were spent [id number] with this patient today, whether in person or by zoom as specified above documented in this encounter Plan of Treatment Upcoming Encounters Date Type Department Care Team (Late st Contact Info) Description 06/02/2024 8:00 AM EDT Office [place] [address] Julienne Lacey APRN [facility] [place] [address] 07/24/2024 1:30 PM EST Office Visit [place] [address] Jenni Brennan MD [facility] DR J[facility]ET [facility] [address] documented as of this encounter Visit Diagnoses Diagnosis Class 2 severe obesity with serious comorbidity and body mass index (BMI) of 39.0 to 39.9 in adult, unspecified obesity type documented in this encounter Care Teams Industrial Rehabilitation Consultant Relationship Specialty Start Date End Date Saumya Felipe APRN [address] [place] [address] PCP - General Family Medicine 12/31/22 documented as of this encounter
--- OUTSIDE RECORDS SUMMARY | 2024-05-25 14:49 | XMS_ITS | Encounter Summary ---
Author Organization [facility] [place] [address] Care Team Providers Care Children'S Book Author Name Role Phone Matteo Saumya LARA Primary Care Provider [phone] Reason for Visit * Auth/Cert (Routine) Specialty Diagnoses / Procedures Referred By Contac t Referred To Contact Diagnoses brbpr Procedures PRO COLONOSCOPY, DIAGNOSTIC PRO COLONOSCOPY, BIOPSY PRO COLONOSCOPY, REMV LESN, SNARE PRO ANES, LWR INTESTINE, NOS COLONOSCOPY, DIAGNOSTIC (WRVU 3.26) Ziyad Riggins MD [facility] [place] [address] [facility] Referral ID Status Reason Start Date Expiration Date Visits Re quested Visits Authorized [id number] 1 1 Encounter Details Date Type Department Care Team (Late st Contact Info) Description 08/22/2023 2:15 PM EST - 08/22/2023 3:00 PM EST Surgery [place] [address] Ziyad Riggins MD [facility] [place] [address] COLONOSCOPY, DIAGNOSTIC (WRVU 3.26) Social History Tobacco Use Types Packs/Day Years [...] Sign Reading Time Taken Comments Blood Pressure 125/77 08/22/2023 2:10 PM EST Pulse 65 08/22/2023 12:35 PM EST Temperature 36.3 ??C (97.3 ??F) 08/22/2023 12:[address] Respiratory Rate 18 08/22/2023 2:10 PM EST Oxygen Saturation 100% 08/22/2023 2:10 PM EST Inhaled Oxygen Concentration - - Weight 109.8 kg (242 lb) 08/22/2023 12:35 PM EST Height 165.1 cm (5' 5) 08/22/2023 12:35 PM EST Body Mass Index 40.27 08/22/2023 12:35 PM EST documented in this encounter Discharge Instructions * Discharge Instructions* Anne Bernal RN - 08/22/2023 1:50 PM EST Colonoscopy: What to Expect at Home Your Recovery Your doctor will talk to you about when you will need your next colonoscopy. Your doctor can help you decide how often you need to be checked. This will depend on the results of your test and your risk for colorectal cancer. After the test, you may be bloated or have gas pains. You may need to pass gas. If a biopsy was done or a polyp was removed, you may have streaks of blood in your stool (feces) for a few days. Problems such as heavy rectal bleeding may not occur until several weeks after the test. This isn't common. But it can happen after polyps are removed. This care sheet gives you a general idea about how long it will take for you to recover. But each person recovers at a different pace. Follow the steps below to get better as quickly as possible. How can you care for yourself at home? Activity Rest when you feel tired. You can do your normal activities when it feels okay to do so. Diet Follow your doctor's directions for eating. Unless your doctor has told you not to, drink plenty of fluids. This helps to replace the fluids that were lost during the colon prep. Do not drink alcohol. Medicines Your doctor will tell you if and when you can restart your medicines. He or she will also give you instructions about taking any new medicines. If you take blood thinners, such as warfarin (Coumadin), clopidogrel (Plavix), or aspirin, be sure to talk to your doctor. He or she will tell you if and when to start taking those medicines again. Make sure that you understand exactly what your doctor wants you to do. If polyps were removed or a biopsy was done during the test, your doctor may tell you not to take aspirin or other anti-inflammatory medicines for a few days. These include ibuprofen (Advil, Motrin) and naproxen (Aleve). Other instructions For your safety, do not drive or operate machinery until the medicine wears off and you can think clearly. Your doctor may tell you not to drive or operate machinery until the day after your test. Do not sign legal documents or make major decisions until the medicine wears off and you can think clearly. The anesthesia can make it hard for you to fully understand what you are agreeing to. Additional Information for Sedation Patients For patients who received sedation: You may have received medications before and/or during your procedure which effects your judgement and reaction time. Do not drive, operate machinery, drink alcoholic beverages or make important decisions for 24 hours. Be careful on stairs as you may be unsteady on your feet. You may eat a regular diet as tolerated. Do not smoke if you are alone. IV site: Slight redness or tenderness is normal, you can use a warm compress if you would like. If tenderness and/or redness increase or if foul drainage occurs, please contact your Doctor. Please call [phone] before 8pm Mon-Fri with problems, questions or concerns. If you call after 8pm or on weekends, call the Hospital at [phone] and ask to speak to the Hospice Case Manager correspondence school instructor and the well services operator will contact that person for you. When should you call for help? Call [phone] anytime you think you may need emergency care. For example, call if: You passed out (lost consciousness). You pass maroon or bloody stools. You have trouble breathing. Call your doctor now or seek immediate medical care if: You have pain that does not get better after you take pain medicine. You are sick to your stomach or cannot drink fluids. You have new or worse belly pain. You have blood in your stools. You have a fever. You cannot pass stools or gas. Watch closely for changes in your health, and be sure to contact your doctor if you have any problems. Where can you learn more? [facility] View your After Visit Summary and more online at [email or web address] If you would like to provide feedback about your hospital experience, please call the Office of Patient and Family Relations at . If you have received this After Visit Summary in error, please immediately return it in person to the department, or notify the [facility] Privacy Office by calling toll free at between the hours of 8AM and 5PM to arrange for our retrieval of the documents at no cost to you. Content Version: 12.2 ?? 0632-1949 [employer]. Care instructions adapted under license by [employer]. If you have questions about a medical condition or this instruction, always ask your healthcare professional. [employer] disclaims any warranty or liability for your use of this information. Colonoscopy: What to Expect at Home Your Recovery Your doctor will talk to you about when you will need your next colonoscopy. Your doctor can help you decide how often you need to be checked. This will depend on the results of your test and your risk for colorectal cancer. After the test, you may be bloated or have gas pains. You may need to pass gas. If a biopsy was done or a polyp was removed, you may have streaks of blood in your stool (feces) for a few days. Problems such as heavy rectal bleeding may not occur until several weeks after the test. This isn't common. But it can happen after polyps are removed. This care sheet gives you a general idea about how long it will take for you to recover. But each person recovers at a different pace. Follow the steps below to get better as quickly as possible. How can you care for yourself at home? Activity Rest when you feel tired. You can do your normal activities when it feels okay to do so. Diet Follow your doctor's directions for eating. Unless your doctor has told you not to, drink plenty of fluids. This helps to replace the fluids that were lost during the colon prep. Do not drink alcohol. Medicines Your doctor will tell you if and when you can restart your medicines. He or she will also give you instructions about taking any new medicines. If you take blood thinners, such as warfarin (Coumadin), clopidogrel (Plavix), or aspirin, be sure to talk to your doctor. He or she will tell you if and when to start taking those medicines again. Make sure that you understand exactly what your doctor wants you to do. If polyps were removed or a biopsy was done during the test, your doctor may tell you not to take aspirin or other anti-inflammatory medicines for a few days. These include ibuprofen (Advil, Motrin) and naproxen (Aleve). Other instructions For your safety, do not drive or operate machinery until the medicine wears off and you can think clearly. Your doctor may tell you not to drive or operate machinery until the day after your test. Do not sign legal documents or make major decisions until the medicine wears off and you can think clearly. The anesthesia can make it hard for you to fully understand what you are agreeing to. Additional Information for Sedation Patients For patients who received sedation: You may have received medications before and/or during your procedure which effects your judgement and reaction time. Do not drive, operate machinery, drink alcoholic beverages or make important decisions for 24 hours. Be careful on stairs as you may be unsteady on your feet. You may eat a regular diet as tolerated. Do not smoke if you are alone. IV site: Slight redness or tenderness is normal, you can use a warm compress if you would like. If tenderness and/or redness increase or if foul drainage occurs, please contact your Doctor. Please call [phone] before 8pm Mon-Fri with problems, questions or concerns. If you call after 8pm or on weekends, call the Hospital at [phone] and ask to speak to the Hospice Case Manager correspondence school instructor and the well services operator will contact that person for you. When should you call for help? Call [phone] anytime you think you may need emergency care. For example, call if: You passed out (lost consciousness). You pass maroon or bloody stools. You have trouble breathing. Call your doctor now or seek immediate medical care if: You have pain that does not get better after you take pain medicine. You are sick to your stomach or cannot drink fluids. You have new or worse belly pain. You have blood in your stools. You have a fever. You cannot pass stools or gas. Watch closely for changes in your health, and be sure to contact your doctor if you have any problems. Where can you learn more? [facility] View your After Visit Summary and more online at [email or web address] If you would like to provide feedback about your hospital experience, please call the Office of Patient and Family Relations at . If you have received this After Visit Summary in error, please immediately return it in person to the department, or notify the [facility] Privacy Office by calling toll free at between the hours of 8AM and 5PM to arrange for our retrieval of the documents at no cost to you. Content Version: 12.2 ?? 5792-4191 [employer]. Care instructions adapted under license by [facility]. If you have questions about a medical condition or this instruction, always ask your healthcare professional. [employer] disclaims any warranty or liability for your use of this information. documented in this encounter Medications at Time [...] Capsule Take by mouth 2 times daily. lidocaine (Lidoderm) 5% Adhesive Patch, Medicated APPLY 1 PATCH TOPICALLY DAILY; LEAVE ON MOST PAINFUL AREA FOR UP TO 12 HOURS 08/10/2023 09/30/2023 documented as of this encounter H&P Notes * Ziyad Riggins MD - 08/22/2023 1:11 PM EST Patient Name: Tiffanie Monreal Patient Age: 38 y.o. Birthdate: 1985 Admit date: 08/22/2023 Attending Physician: Ziyad Riggins MD Gastroenterology & Hepatology Pre-Procedure History and Physical Planned Procedure: Colonoscopy: Indication: BRBPR Patient Active Problem List Diagnosis Code Breast hypertrophy N62 Upper airway resistance syndrome with sleep fragmentation G47.8 Insomnia G47.00 Major depressive disorder F32.9 Anxiety disorder F41.9 Bariatric surgery status: 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 Z98.84 Abdominal pannus E65 Medications: Reviewed in [facility] Allergies Allergen Reactions Cough Syrup [Guaifenesin] Anaphylaxis Dragon Fruit Anaphylaxis Spider Venom Other (See Comments) Ask patient. Kiwi Other reaction(s): Swelling/Edema Dextromethorphan Hbr Other reaction(s): Anaphylaxsis Doxylamine Succinate Other reaction(s): Anaphylaxsis Pseudoephedrine Hcl Other reaction(s): Anaphylaxsis Social History/Family History: Reviewed in [facility]. No changes Exam: Patient Vitals for the past 24 hrs: Temp Pulse BP SpO2 O2 Device 08/22/23 1235 36.3 ??C (97.3 ??F) 65 127/79 99 % RA GEN: NAD, AAOX3 HEENT: NC/AT dryMM, anicteric Chest: CTAB Heart: RRR, nl s1, s2 Abdomen: normal bowel sounds, soft, non tender Assessment and Plan: Proceed with Colonoscopy: ASA Grade: ASA 2 - Patient with mild systemic disease with no functional limitations Mallampati: II (soft palate, uvula, fauces visible) Sedation plan: MAC Risks and benefits of the procedure were discussed with the patient. Risks discussed including bleeding, infection, reaction to anesthesia, perforation or other intraabdominal trauma, pancreatitis (if applicable), missing a cancer (if applicable) and/or other unforseen complication. Informed Consent signed by patient (or direct marketing representative). documented in this encounter Plan of Treatment Upcoming Encounters Date Type Department Care Team (Late st Contact Info) Description 06/02/2024 8:00 AM EDT Office [place] [address] Julienne Lacey APRN [facility] [place] [address] 07/24/2024 1:30 PM EST Office Visit [place] [address] Jenni Brennan MD [facility] [address] [facility] [place] [address] documented as of this encounter Procedures Procedure Name Priority Date/Time Associated Diagnosis Comments Colonoscopy, Diagnostic (91059) 08/22/2023 1:26 PM EST BRBPR (bright red blood per rectum) COLONOSCOPY Routine 08/22/2023 1:07 PM EST documented in this encounter Results * COLONOSCOPY (08/22/2023 1:07 PM EST) COLONOSCOPY [facility] Procedure Date: 08/22/2023 1:07 PM ? Patient Name: Tiffanie Monreal ? Date of : 1985 ? Age: 38 ? Order #: [id number] ? Instrument Name: [id number] ? Procedure: ? Colonoscopy Indications: ? Rectal bleeding Providers: ? Ziyad Riggins MD, Brittney ? Miah Dumont MD: ?Saumya Young Medicines: ? Monitored Anesthesia Care [...] preparation was evaluated ? using the BBPS ([place] Bowel ? Preparation Scale) with scores of: [...] ?- Use a daily fiber supplement ? (longterm). For example Benefiber, ? Citrucel, Fibercon, Konsyl [...] PM PROVATION 08/22/2023 1:07 PM EST Saumya Felipe APRN GENERAL SURGICAL ORD ERABLES PROVATION documented in this encounter Visit Diagnoses Diagnosis BRBPR (bright red blood per rectum) Hemorrhage of rectum and anus documented in this encounter Administered Medications Inactive Administered Medications - up to 3 most recent administrations Medication Order MAR Action Action Date Dose Rate Site lactated ringers infusion 100 mL/hr, Intravenous, CONTINUOUS, Starting on Sarah 08/22/23 at 1300, Until Sarah 08/22/23 at 1405, Endoscopy (Day of Procedure) Restarted 08/22/2023 1:26 PM EST New Bag 08/22/2023 12:52 PM EST 100 mL/hr 100 mL/hr documented in this encounter Active and Recently Administered Medications Times are shown in EST. Continuous Medication Order 08/20/2023 08/21/2023 08/22/2023 lactated ringers infusion (CANCELED) 100 mL/hr, Intravenous, CONTINUOUS, Starting on Sarah 08/22/23 at 1300, Until Sarah 08/22/23 at 1405, Endoscopy (Day of Procedure) 1252 (New Bag - Prov ider: Debbie Johnston RN)1325 (Paused - Provider: Sally Atwood CRNA - Comment: Switch to gravity)1326 (Restarted - Provider: Sally Atwood CRNA) documented in this encounter Care Teams Children'S Book Author Relationship Specialty Start Date End Date Saumya Felipe APRN [address] [place] [address] PCP - General Family Medicine 12/31/22 documented as of this encounter
--- OUTSIDE RECORDS SUMMARY | 2024-05-25 14:49 | XMS_ITS | Encounter Summary ---
Author Organization [facility] [place] [address] Care Team Providers Care Science Professor Name Role Phone Saumya Felipe APRN Primary Care Provider [phone] Reason for Visit * Auth/Cert (Routine) Specialty Diagnoses / Procedures Referred By Contac t Referred To Contact Diagnoses brbpr Procedures PRO COLONOSCOPY, DIAGNOSTIC PRO COLONOSCOPY, BIOPSY PRO COLONOSCOPY, REMV LESN, SNARE PRO ANES, LWR INTESTINE, NOS COLONOSCOPY, DIAGNOSTIC (WRVU 3.26) Ziyad Riggins MD [facility] [place] [address] [facility] Referral ID Status Reason Start Date Expiration Date Visits Re quested Visits Authorized [id number] 1 1 Encounter Details Date Type Department Care Team (Late st Contact Info) Description 08/22/2023 12:23 PM EST - 08/22/2023 2:25 PM EST Hospital Encounter [place] [address] Ziyad Riggins MD [facility] [place] [address] Discharge Disposition: Home Social History Tobacco Use [...] occurs, please contact your Doctor. Please call [phone] before 8pm Mon-Fri with problems, questions or concerns. If you call after 8pm or on weekends, call the Hospital at [phone] and ask to speak to the Swine Extension Field Specialist personal lines underwriter and the rug drying machine operator will contact that person for you. When should you call for help? Call [phone] anytime you think you may need emergency [...] any problems. Where can you learn more? [facility] View your After Visit Summary and more online at [email or web address] If you would like to provide feedback about your hospital experience, please call the Office of Patient and Family Relations at . If you have received this After Visit Summary in error, please immediately return it in person to the department, or notify the [facility] Privacy Office by calling toll free at between the hours of 8AM and 5PM to arrange for our retrieval of the documents at no cost to you. Content Version: 12.2 ?? 5907-8627 [employer]. Care instructions adapted under license by [facility]. If you have questions about a medical condition or this instruction, always ask your healthcare professional. [employer] disclaims any warranty or liability for your [...] occurs, please contact your Doctor. Please call [phone] before 8pm Mon-Fri with problems, questions or concerns. If you call after 8pm or on weekends, call the Hospital at [phone] and ask to speak to the Swine Extension Field Specialist personal lines underwriter and the rug drying machine operator will contact that person for you. When should you call for help? Call [phone] anytime you think you may need emergency [...] any problems. Where can you learn more? [facility] View your After Visit Summary and more online at [email or web address] If you would like to provide feedback about your hospital experience, please call the Office of Patient and Family Relations at . If you have received this After Visit Summary in error, please immediately return it in person to the department, or notify the [facility] Privacy Office by calling toll free at between the hours of 8AM and 5PM to arrange for our retrieval of the documents at no cost to you. Content Version: 12.2 ?? 0182-2848 [employer]. Care instructions adapted under license by [facility]. If you have questions about a medical condition or this instruction, always ask your healthcare professional. [employer] disclaims any warranty or liability for your [...] complication. Informed Consent signed by patient (or sales representative womens health). documented in this encounter Plan of Treatment Upcoming Encounters Date Type Department Care Team (Late st Contact Info) Description 06/02/2024 8:00 AM EDT Office [place] [address] Julienne Lacey APRN [facility] [place] [address] 07/24/2024 1:30 PM EST Office Visit [place] [address] Jenni Brennan MD [facility] [address] [facility] [place] [address] documented as of this encounter Procedures Procedure Name Priority Date/Time Associated Diagnosis Comments Colonoscopy, Diagnostic (50351) 08/22/2023 1:26 PM EST BRBPR (bright red blood per rectum) COLONOSCOPY Routine 08/22/2023 1:07 PM EST documented in this encounter Results * COLONOSCOPY (08/22/2023 1:07 PM EST) COLONOSCOPY [facility] Endoscopy Procedure Date: 08/22/2023 1:07 PM ? Patient Name: Tiffanie Monreal ? Date of : 1985 ? Age: 38 ? Order #: [id number] ? Instrument Name: [id number]- [id number] ? Procedure: ? Colonoscopy Indications: ? Rectal [...] preparation was evaluated ? using the BBPS ([place] Bowel ? Preparation Scale) with scores of: [...] ?- Use a daily fiber supplement ? (skilled nursing). For example Benefiber, ? Citrucel, Fibercon, Konsyl [...] [employer] documented in this encounter Visit Diagnoses Not [...] CRNA) documented in this encounter Care Teams Science Professor Relationship Specialty Start Date End Date Saumya Felipe APRN [address] [place] [address] PCP - General Family Medicine 12/31/22 documented as of this encounter
--- OUTSIDE RECORDS SUMMARY | 2024-05-25 14:49 | XMS_ITS | Encounter Summary ---
Author Organization [facility] Address [facility] [place] [address] Care Team Providers Care Language Assistant Name Role Phone Saumya Felipe APRN Primary Care Provider [phone] Reason for Visit * Reason Comments Medication Refill Encounter Details Date Type Department Care Team ([facility] Contact Info) Description 03/13/2024 Refill [place] [address] Jenni Brennan MD [facility] [address] [facility] [address] Class 2 obesity with body mass index [...] - Inhaled Oxygen Concentration - - Weight 104.1 kg (229 lb 9.6 oz) 03/13/2024 11:00 AM EDT pt reported Height - - Body Mass Index 38.21 01/22/2024 9:34 AM EDT documented in this encounter Plan of Treatment Upcoming Encounters Date Type Department Care Team (Late Contact Info) Description 06/02/2024 8:00 AM EDT Office [place] [address] Julienne Lacey APRN [facility] [place] [address] 07/24/2024 1:30 PM EST Office Visit [place] [phone] Jenni Brennan MD [facility] [address] [facility] [address] documented as of this encounter Visit Diagnoses Diagnosis Class 2 obesity with body mass index (BMI) of 38.0 to 38.9 in adult, unspecified obesity type, unspecified whether serious comorbidity present documented in this encounter Care Teams Language Assistant Relationship Specialty Start Date End Date Saumya Felipe APRN [address] [place] [address] PCP - General Family Medicine 12/31/22 documented as of this encounter
--- OUTSIDE RECORDS SUMMARY | 2024-05-25 14:49 | XMS_ITS | Encounter Summary ---
Author Organization [facility] [place] [address] Care Team Providers Care Corporate Ethics Officer Name Role Phone Saumya Felipe APRN Primary Care Provider [phone] Reason for Visit * Consultation (Routine) - Closed Specialty Diagnoses / Procedures Referred By Sayda antoine Referred To Contact Weight and Wellness Diagnoses Weight gain Luz Vinson APRN [facility] [address] [facility] [place] [address] Referral ID Status Reason Start Date Expiration Date V isits Requested Visits Authorized [id number] Closed Consult, Test & Treat 11/05/2022 11/05/2023 1 1 Encounter Details Date Type Department Care Team (Late st Contact Info) Description 09/11/2023 4:00 PM EST Office Visit [place] [address] Jenni Brennan MD [facility] [place] [address] Class 3 severe obesity with body mass index (BMI) of 40.0 to 44.9 in adult, unspecified obesity type, unspecified whether serious comorbidity present (Primary Dx); Bariatric surgery status: 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; Migraine without status migrainosus, not intractable, unspecified migraine type Social History Tobacco Use Types Packs/Day [...] Sign Reading Time Taken Comments Blood Pressure 128/71 09/11/2023 3:20 PM EST Pulse 78 09/11/2023 3:20 PM EST Temperature - - Respiratory Rate - - Oxygen Saturation 97% 09/11/2023 3:20 PM EST Inhaled Oxygen Concentration - - Weight 109.5 kg (241 lb 6.4 oz) 09/11/2023 3:20 PM EST Height 164.5 cm (5' 4.76) 09/11/2023 3:20 PM ES T Body Mass Index 40.46 09/11/2023 3:20 PM EST documented in this encounter Patient Instructions * Patient Instructions* Jenni Brennan MD - 09/11/2023 4:00 PM EST If you are interested in trying injectable medication for weight loss, we will discuss this in detail at your follow up visit. To help the process, please contact your insurance company to determine coverage of anti-obesity medications. Specifically, Zepbound, Saxenda and Wegovy are very expensive m edications that may not be an option for you if your insurance does not share some of the cost. If they do pay a portion of the cost of the medication, find out how much you would likely pay [id number] if possible. If your co-pay is 20% of $1000, for instance, $200 per month might be too expensive. (This is just an example, but $1000 is the henry range for these medications.) These medicationssometimes have savings cards that you can find on their web sites. Savings cards can help decrease your co-pay. If you have information about cost of medications, it can guide our next discussion andhelp you get medications more efficiently. AND ASK YOUR INSURANCE if there are any criteria they require if they cover these medications. Topiramate Brand names Topamax Trokendi (long acting) How it Works Decreases appetite Not well understood When Not to Use DO NOT USE IF YOU CAN GET . You must use reliable control to be on this medication (see below) History of kidney stones Glaucoma Untreated depression/bipolar disorder or suicidal thoughts Other medications If you are a female of reproductive age, you must be on a reliable form of control while taking topiramate. Reliable forms of control are: pills, patch, ring, injectables, implantables, IUDs. Condoms, other barrier methods and natural family planning ARE NOT included in the list of reliable control methods This medication is combined with phentermine in a prescription medication called Qsymia which is FDA approved for weight loss. At this time, the combination of phentermine and topiramate has the greatest likelihood of the most weight loss for medications that treat obesity. Common side effects ???Brain fog?? , often associated with word finding difficulties Tingling in extremities, which often comes and goes Taste changes The above side effects resolve with discontinuation of the medication Suicidality is NOT a common side effect of topiramate, but is on the list of side effects Kidney stones are more likely to occur in those who have a history of kidney stones What you can do Take your control medication as prescribed Monthly test Do not stop topiramate abruptly Stay well hydrated (to avoid development of kidney stones) Starting this medication Your doctor will start you on a low dose and titrate up to a therapeutic level Monitoring If you do not achieve 5% weight loss at 12 weeks, we will increase the dose or try a different medication Uses Weight loss, chronic headache, seizure disorder Qsymia, a combination of phentermine and topiramate, is FDA approved for long- term treatment of obesity. Topiramate on its own is not FDA-approved to treat obesity, but it is often used with and without phentermine for the long-term treatment of obesity. Phentermine Brand Names Adipex P 15-37.5mg taken 1-2 times daily Lomaira 8mg three times per day, 30min prior to meals How it works Stimulant medication Decreases appetite When not to use History of coronary artery disease (heart attack, angina, stroke) Uncontrolled blood pressure Uncontrolled, high heart rate Glaucoma History of drug addiction Hyperthyroid disease Bipolar disorder, anxiety Seizure disorder Other medications Often paired with topiramate for weight loss, either in individual forms or combined Qsymia is the combination prescription medication of topiramate and phentermine Common Side effects (not comprehensive) Restlessness/nervousness/anxious mood, increased heart rate/palpitations, increased blood pressure,difficulty sleeping, headache, dry mouth, constipation or diarrhea What you can do Avoid taking stimulant medications close to bedtime. Do not stop this medication suddenly Monitor your blood pressure at home Monitoring If you do not achieve 5% weight loss at 12 weeks, we will increase the dose or try a different medication Uses Weight loss FDA approved for short-term use for weight loss HOWEVER, combination of phentermine/topiramate has been FDA approved for long-term weight loss. Many obesity medicine specialists use this for long-term treatment. documented in this encounter Progress Notes * Jenni Brennan MD - 09/11/2023 4:00 PM EST [facility] [place] Referring provider: Luz Visnon Dear Saumya Felipe APRN, Clara E Spalding Thank you for referring Tiffanie Monreal to the [facility]. Tiffanie Monreal presented to the [facility] for a consultative visit regarding obesity management. The patient presented with WHO Class 3 / EOSS Stage 0 Obesity defined by a BMI of Body mass index is 40.46 kg/m??. and complications: Anxiety, Depression, and Migraine d/o. For treatment of obesity, we will focus on the pillars of obesity management: nutrition, activity, behavioral change and medication management. Our team will address each of these pillars as we provide ongoing comprehensive obesity care for Tiffanie. I look forward to collaborating with you and Tiffanie on this journey. To that end, I will make medication adjustments as appropriate based on the patient's ongoing state of health and provide referralsas they relate to her obesity care. Medications that I often manage include, but are not limited to, anti-obesity meds, diabetic medications and anti-hypertensives. Any medication adjustments I make will be communicated to you to maintain seamless care. For referrals and other specific care plans, see the Assessment and Plan at the bottom of this note. CHIEF COMPLAINT: Management of excess weight HISTORY OF PRESENT ILLNESS: Weight History: 09/03/2023 10:05 AM [facility] Weight History Most weighed 311 Age most weighed 30 Times lost 10 lbs or more 1 to 2 Lost weight how? Ate less food Switched to food with less calories Ate fewer carbohydrates Exercised Drank a lot of water Ate less sugar, candy, sweets Tiffanie Monreal has had gradual weight gain due to: genetic factors, , stress/emotions in the past, decreased acitivty due to Ach tendon injury leading to weight gain post cam surgery Barriers to success: Weight hx: Tiffanie Monreal is here today to discuss excess weight. 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 no Onset : teenage years. Before kids weight ranged 200-225. Comfortable around 200# Father prior ot first and weight started increasing Always heavier. After 2 pregnancies, weight increased. Never able to lose weight unless she was . Lost 80# and 60# with each (during pregnanyc). Regained after . Has pleateaued with weight. Pulled Achilles tendon - in 2021 and cannot exercise and gained a lot of weight. Trying to get back exercise routine. Also dealing with a TBI in her son. Gained about 40# since 2020 Famx: 09/03/2023 10:05 AM Family History Do any of these medical conditions run in your family? Obesity Receiving bariatric surgery Type 2 diabetes Peak weight/date: 311, 2018? (302 per chart in 2011) Nadire post [...] 33% 41.4 4 yrs, 3 mo post-op Prior treatment/attempts to lose: AOM HX: none ANTI-OBESITY MEDICINE Attempt at lifestyle change number of months: Since 2019, activity > 150 min per week, appropriate caloric intake, WC 46in History of Bariatric Surgery: Yes If yes, enter date: 2018 RNY CURRENT MEDICATIONS AOM TIMELINE Medications: Phentermine-topiramate Phentermine-topiramate Start Date: 09/11/2023 (pending) Phentermine-topiramate Start Weight: 241 AOM CONTRAINDICATIONS/CAUTIONS Factors contributing to decision making: NO hx of kidney stones The current method of family planning is status post hysterectomy. 09/03/2023 10:05 AM [facility] Importance Importance of making a change 10 - Very Important Confidence to make change 10 - Very Confident Obesogenic medications: gabapentin - for HAs, loratadine Obesity related complications: 09/03/2023 10:05 AM Past Medical History Have you had any of the following medical problems? Migraine headaches COMPLICATIONS ADDRESSED MIGRAINE History: now on gabapentin; tried topiramate, helped with weight loss but made her feel dumbfounded. Was on low dose. Migraines Worse recently d/t increased stress Sleep: Circadian: []weight shifter work []irregular sleep timings [x]Normal day/night schedule Struggling with sleep d/t stress - cannot shut off her mind. Taking trazodone - not always helpful for more than 2 hours. Dx/Treated for ESTHELA? Tested prior to cam surg - no ESTHELA. Food Behaviors In your opinion do you eat a healthy diet? Does not always getenough protein but tryings, always ate a lot of plant based foods. Appetite: low Eating out of: []Hunger []Habit []It's time. []Boredom []Emotions Eating patterns: [] Mindless eating [] binge eating [] Hx of AN/BN [] Grazing [] Night eating [x] Craving - salty/crunchy [] None of the above Daily Routine Drinks: water or flavored water with packets, iced tea (diet snapple), no alcohol. Movement: 09/03/2023 10:05 AM [facility]: PAVS How many days during the past week have you performed physical activity where your heart beats faster and your breathing is harder than normal for 30 minutes or more? 4 How many days in a typical week do you perform an activity such as this? 4 Is ambulation limited most or all of the time? Sore left knee but trying to moderate activity Tolerance: she can climb a flight of stairs - no CV sx. Purposeful exercise now? Going to gym - 3-4 times per week about one hour with mix of strength + CV. 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 Stress Management: Self-monitoring: [] Daily or weekly weights [] Food log/ankita [] Other [] None currently REVIEW OF SYSTEMS: 10 systems reviewed, positives as below Review of Systems 09/03/2023 10:05 AM Review of Systems Review of Systems Hair loss 09/03/2023 10:05 AM [facility] PHQ-2 Little interest or pleasure in doing things. Not at all Feeling down, depressed, or hopeless. Not at all PHQ-2 Score 0 (Brief PHQ2 screen negative) 09/03/2023 10:05 AM WCCGAD2 Feeling nervous, anxious or on edge. Not at all Not being able to stop or control worrying. Not at all GAD2 Subscore 0 (Brief screen negative) MEDICAL HISTORY Medical and Surgical History: Reviewed. Past Medical History: Diagnosis Date Anxiety Depression Obesity Family History: Reviewed. 09/03/2023 10:05 AM Family History Do any of these medical conditions run in your family? Obesity Receiving bariatric surgery Type 2 diabetes Family History Problem (# of Occurrences) Relation (Name,Age of Onset) Diabetes (1) Mother Heart Disease (3) Father, Paternal Grandfather, Paternal Grandmother Obesity (3) Father: at 58, Mother, Sister: s/p gastric bypass Sleep Apnea (1) Mother Social History: Reviewed. Food insecurity? Neg screen 09/03/2023 10:05 AM [facility]: Alcohol How often do you have a drink containing alcohol? Monthly or less Drinks per day 0 drinks 6+ drinks on one occasion Less than monthly VITAL SIGNS: Vitals: 09/11/23 1520 BP: 128/71 Pulse: 78 SpO2: 97% Weight: 109.5 kg (241 lb 6.4 oz) Height: 164.5 cm (5' 4.76) Body mass index is 40.46 kg/m??. PHYSICAL EXAM: Gen: 38 y.o. year old female with obesity who appears stated age. NAD. Body fat distribution- predominantly generalized. Appearance: appropriate, well-kempt HENT: Atruamatic, MMM, OP clear and narrow, Mallampati grade 1/4 Neck: Neck Circumference (in): 14.5 in no buffalo hump CV: RRR, S1S2 distinct, no extra sounds or murmur Abd: Waist Circumference (in): 46 in +BS, soft, NT/ND, no HSM/masses, no scars Extremities: no LE edema, WWP, neg Rebecca's sign Gait: anantalgic Skin: NEG FOR: Acanthosis nigricans, acne, hirsut, skin tags, intertrigo, rashes, purple abdominal striae, induration. Integrity in tact Psych: pleasant, conversant and engaged, normal affect, cognition and mood. PREVIOUS LABS AND IMAGING: Reviewed Last CMP Lab Results Component Value Date NA 139 11/05/2022 K 4.2 11/05/2022 CL 104 11/05/2022 CO2 23 11/05/2022 BUN 10 11/05/2022 CREATININE 0.55 (L) 11/05/2022 GLUCOSE 96 11/05/2022 CALCIUM 9.5 11/05/2022 ESTGFR 121 11/05/2022 ASSESSMENT AND PLAN Tiffanie Monreal is a 38 y.o. female with uncontrolled OBESITY WITHOUT EVIDENCE OF METABOLIC DISEASE s/p bariatric surgery in 2019 who presented to [facility] today for medical evaluation with associated [...] for 14 days. 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 Return in about 4 weeks (around 10/09/2023). I spent a total of 45 minutes on the date of service in [id number] discussion/counseling regarding the diagnosis of obesity, interventions for treatment, and obesity related complications as well as documentation of visit and chart review, including notes, labs, and other evaluations as reviewed pam long. I spoke with Tiffanie about opportunities to participate in research and to be contacted by our research phlebotomy lab assistant. They indicated that they are: [] INTERESTED [] NOT INTERESTED // [x] NOT ADDRESSED Episode 09/03/2023 10:05 AM [facility] Initial Responses URICA - Readiness Score 9 (Contemplation State) WEL-SF Total Scores 80 PHQ-2 SubScore 0 (Brief PHQ2 screen negative) GAD2 Subscore 0 (Brief screen negative) PROMIS 10 Physical Scores 54.1 PROMIS 10 Mental Scores 48.3 Total REAP-S Scores 38 TFEQ - Uncontrolled Eating (UE) 7.41 TFEQ-Cognitive Restraint (CR) 44.44 TFEQ-Emotional Eating 0 Food Insecurity Score 2 [place] Category I Result 0 (Negative) [place] Category II Result 0 (Negative) [place] Category III 0 (Negative) [place] Sleep Apnea Total 0 (Low Risk) Schooling Some college or technical school Importance of making a change 10 - Very Important Confidence to make change 10 - Very Confident Most weighed 311 Age most weighed 30 Times lost 10 lbs or more 1 to 2 Lost weight how? Ate less food Switched to food with less calories Ate fewer carbohydrates Exercised Drank a lot of water Ate less sugar, candy, sweets Worried food would run out before we got money to buy more Never true Food didn't last; no money to get more Never true URICA: <8 Precontemp, 8-12 Contemp, 12+ Prep TFEQ: Look at transformed scores, average is 50, +/-2SD is sigfnif, consider referral >70 WEL-SF: Range 0-80, higher = better PROMIS Avg score = 50 REAP score 13-39, higher = more diversity in diet, better documented in this encounter Plan of Treatment Upcoming Encounters Date Type Department Care Team (Late st Contact Info) Description 06/02/2024 8:00 AM EDT Office Visit [place] [address] Julienne Lacey APRN [facility] [place] [address] 07/24/2024 1:30 PM EST Office Visit [place] [phone] Jenni Brennan MD [facility] [place] [address] documented as of this encounter Visit Diagnoses Diagnosis Class 3 severe obesity with body mass index (BMI) of 40.0 to 44.9 in adult, unspecified obesity type, unspecified whether serious comorbidity present- Primary Bariatric surgery status: 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 Bariatric surgery status Migraine without status migrainosus, not intractable, unspecified migraine type documented in this encounter Care Teams Corporate Ethics Officer Relationship Specialty Start Date End Date Saumya Felipe APRN [address] [place] [address] PCP - General Family Medicine 12/31/22 documented as of this encounter
--- OUTSIDE RECORDS SUMMARY | 2024-05-25 14:49 | XMS_ITS | Encounter Summary ---
Author Organization [facility] [place] [address] Care Team Providers Care Insulation Board Back Tender Name Role Phone Saumya Felipe APRN Primary Care Provider [phone] Encounter Details Date Type Department Care Team (Late st Contact Info) Description 12/31/2023 External Results [place] [address] Jenni Brennan MD [facility] [address] Social History Tobacco Use Types Packs/Day Years [...] 8:00 AM EDT Office [place] [address] Julienne Lacey APRN [facility] [place] [address] 07/24/2024 1:30 PM EST Office [place] [address] Jenni Brennan MD [facility] [address] [facility] [place] [address] documented as of this encounter Procedures Procedure Name Priority Date/Time Associated Diagnosis Comments BASIC METABOLIC PANEL Routine 12/20/2023 documented in this encounter Results * Basic Metabolic Panel (non-fasting) (12/20/2023) Glucose 116 Blood Urea Nitrogen 8 Creatinine 0.7 Est Glomerular Filtration Rate 113.46 Sodium 142 Potassium 4.1 Chloride 106 Carbon Dioxide 26 Calcium 8.8 Blood Historical Provider CHEMISTRY ORDERAB LES documented in this encounter Visit Diagnoses Not on filedocumented in this encounter Care Teams Insulation Board Back Tender Relationship Specialty Start Date End Date Saumya Felipe APRN [address] [place] [address] PCP - General Family Medicine 12/31/22 documented as of this encounter
--- OUTSIDE RECORDS SUMMARY | 2024-05-25 14:49 | XMS_ITS | Encounter Summary ---
Author Organization Formerly [facility] [place] [address] Care Team Providers Care Patient Companion Name Role Phone Saumya Felipe APRN Primary Care Provider [phone] Encounter Details Date Type Department Care Team (Latest Contact Info) Description 09/30/2023 10:00 AM EST Laboratory Appointment Lab [address] [place] [address] Post-resection malabsorption; Status post bariatric [...] 8:00 AM EDT Office [place] [phone] Julienne Lacey APRN [facility] [place] [address] 07/24/2024 1:30 PM EST Office Visit [place] [address] Jenni Brennan MD [facility] [place] [address] documented as of this encounter Procedures Procedure Name Priority Date/Time Associated Diagnosis Comments PTH Routine 09/30/2023 9:57 AM EST Post-resection malabsorption Status post bariatric surgery HEMOGRAM Routine 09/30/2023 9:57 AM EST Post-resection malabsorption Status post bariatric surgery VITAMIN B1, WHOLE BLOOD Routine 09/30/2023 9:57 AM EST Post-resection malabsorption Status post bariatric surgery IRON AND TIBC Routine 09/30/2023 9:57 AM EST Post-resection malabsorption Status post bariatric surgery VITAMIN D, 25-HYDROXY Routine 09/30/2023 9:57 AM EST Post-resection malabsorption Status post bariatric surgery FOLATE, SERUM Routine 09/30/2023 9:57 AM EST Post-resection malabsorption Status post bariatric surgery FERRITIN Routine 09/30/2023 9:57 AM EST Post-resection malabsorption Status post bariatric surgery VITAMIN B12 Routine 09/30/2023 9:57 AM EST Post-resection malabsorption Status post bariatric surgery COMPREHENSIVE METABOLIC PANEL Routine 09/30/2023 9:57 AM EST Post-resection malabsorption Status post bariatric surgery documented in this encounter Results * (ABNORMAL) Comprehensive metabolic panel (non-fasting) (09/30/2023 9:57 AM EST) Glucose 71 65 - 199 mg/dL [facility] Comment:Diabetes: >=200 mg/d L plus symptoms Blood Urea Nitrogen 6(L) 8 - 18 mg/dL [facility] Creatinine 0.58(L) 0.70 - 1.20 mg/dL [facility] Sodium 140 135 - 145 mmol/L [facility] Potassium 3.7 3.5 - 5.0 mmol/L [facility] Comment: Please note: ??Patients with WBC >100,000 may have falsely elevated Potassium levels. ??For accurate Potassium quantification in these patients send serum separator tube (gold top) for subsequent determinations. ??Contact the Clinical Chemistry Laboratory if there are any questions. Chloride 109(H) 98 - 107 mmol/L [facility] Carbon Dioxide 22 22 - 31 mmol/L [facility] Anion Gap 9 5 - 15 mmol/L [facility] Calcium 9.8 8.5 - 10.5 mg/dL [facility] Protein, Total 7.1 6.1 - 8.0 g/dL [facility] Albumin 4.2 3.2 - 5.2 g/dL [facility] Aspartate Aminotransferase 14 0 - 30 unit/L [facility] Alanine Aminotransferase 12 0 - 30 unit/L [facility] Alkaline Phosphatase 85 35 - 105 unit/L [facility] Bilirubin, Total 0.4 0.2 - 1.3 mg/dL [facility] Est Glomerular Filtration Rate 119 >=60 mL/min/1. 73 m?? [facility] Comment: This patient's estimated GFR was [...] and symptoms in addition to eGFR. Blood 09/30/2023 9:57 AM EST 09/30/2023 10:07 AM EST Narrative Resulting Agency Comment Spec In Lab Luz E [place] BROADCAST MAINTENANCE TECHNICIAN CHEMISTRY ORDERABL ES [facility] [place] [address] * Ferritin (09/30/2023 9:57 AM EST) Ferritin 58 6 - 175 ng/mL [facility] Comment: Please note that as of 07/17/2023, the reference intervals for Ferritin have been updated. Blood 09/30/2023 9:57 AM EST 09/30/2023 10:07 AM EST Narrative Resulting Agency Comment Spec In Lab Luz E [place] BROADCAST MAINTENANCE TECHNICIAN CHEMISTRY ORDERABL ES Performing Organization Address [facility] Co de Phone Number [facility] [place] [address] * Folate, serum (09/30/2023 9:57 AM EST) Folate 19.2 4.8 - 24.2 ng/mL [facility] Blood 09/30/2023 9:57 AM EST 09/30/2023 10:07 AM EST Narrative Resulting Agency Comment Spec In Lab Luz [place] BROADCAST MAINTENANCE TECHNICIAN CHEMISTRY ORDERABL ES Performing Organization Address [facility] de Phone Number [facility] [place] [address] * Hemogram (09/30/2023 9:57 AM EST) White Blood Cell 8.6 4.0 - 9.5 x10(3)/[facility] Red Blood Cell 4.59 4.00 - 5.21 x10(6)/[facility] Hemoglobin 13.1 11.7 - 15.5 g/dL [facility] Hematocrit 39.7 35.7 - 45.8 % [facility] Mean Cell Volume 86.5 82.6 - 94.4 fL [facility] Mean Cell Hemoglobin 28.5 27.1 - 32.0 pg [facility] Mean Cell Hemoglobin Concentration 33.0 31.7 - 35.0 g/dL [facility] Platelet 252 145 - 357 x10(3)/[facility] RDW Standard Deviation 42.0 37.0 - 46.0 fL [facility] RDW coefficient of variation 13.4 11.5 - 14.1 % [facility] Mean Platelet Volume 10.4 7.6 - 12.9 fL [facility] NRBC% auto 0.0 % [facility] NRBC Absolute 0.000 0.000 - 0.000 x10(3)/[facility] Blood 09/30/2023 9:57 AM EST 09/30/2023 10:07 AM EST Narrative Resulting Agency Comment Spec In Lab Luz [place] BROADCAST MAINTENANCE TECHNICIAN HEMATOLOGY ORDERAB LES Performing Organization Address [facility] Co de Phone Number [facility] [place] [address] * (ABNORMAL) Iron and TIBC (09/30/2023 9:57 AM EST) Iron 36 30 - 150 mcg/dL [facility] TIBC 307 250 - 450 mcg/dL [facility] Iron Saturation 12(L) 20 - 50 % [facility] Blood 09/30/2023 9:57 AM EST 09/30/2023 10:07 AM EST Narrative Resulting Agency Comment Spec In Lab Luz E Alisson BROADCAST MAINTENANCE TECHNICIAN CHEMISTRY ORDERABL ES Performing Organization Address [facility] Co de Phone Number [facility] [place] [address] * PTH (09/30/2023 9:57 AM EST) Parathyroid Hormone 19 15 - 65 pg/mL [facility] Blood 09/30/2023 9:57 AM EST 09/30/2023 10:07 AM EST Narrative Resulting Agency Comment Spec In Lab Luz E [place] BROADCAST MAINTENANCE TECHNICIAN CHEMISTRY ORDERABL ES Performing Organization Address [facility] de Phone Number [facility] [place] [address] * Vitamin B1, whole blood (09/30/2023 9:57 AM EST) Vit B1 Lvl Wb (DECEMBER) 176 70 - 180 nmol/L [facility] Comment: ADDITIONAL INFORMATION This test was developed and its performance characteristics determined by [facility] in a manner consistent with CLIA requirements. This test has not been cleared or approved by the U.S. Food and Drug Administration. Test Performed by: [facility] [address] [place] [address] Marine Tower Operator: Esvin Rodriguez M.D. Ph.D.; CLIA# [id number] Blood 09/30/2023 9:57 AM EST 09/30/2023 11:38 AM EST Narrative Resulting Agency Comment Spec In Lab Luz Vinson APRN LAB SEND OUT ORDER DOE Performing Organization Address [facility] Co de Phone Number [facility] [place] [address] * Vitamin D, 25-Hydroxy (09/30/2023 9:57 AM EST) Vitamin D Total 25 OH 31 21 - 100 ng/mL [facility] Vit D Interp Sufficient [facility] Blood 09/30/2023 9:57 AM EST 09/30/2023 10:07 AM EST Narrative Resulting Agency Comment Spec In Lab Luz Vinson BROADCAST MAINTENANCE TECHNICIAN CHEMISTRY ORDERABL ES Performing Organization Address [facility] Co de Phone Number [facility] [place] [address] * Vitamin B12 (09/30/2023 9:57 AM EST) Vitamin B12 392 232 - 1,245 pg/mL [facility] Blood 09/30/2023 9:57 AM EST 09/30/2023 10:07 AM EST Narrative Resulting Agency Comment Spec In Lab Luz Vinson APRN CHEMISTRY ORDERABL ES Performing Organization Address [facility] Co de Phone Number [facility] [place] [address] documented in this encounter Visit Diagnoses Diagnosis 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
--- OUTSIDE RECORDS SUMMARY | 2024-05-25 14:49 | XMS_ITS | Encounter Summary ---
Author Organization [facility] [place] [address] Care Team Providers Care Wharf Hand Name Role Phone Saumya Felipe APRN Primary Care Provider [phone] Encounter Details Date Type Department Care Team (Late st Contact Info) Description 07/18/2023 Orders [place] [address] Bashir Hess MD [facility] [place] [address] BRBPR (bright red blood per rectum) Social History Tobacco Use Types Packs/Day Years [...] 8:00 AM EDT Office [place] [address] Julienne Lacey APRN [facility] [place] [address] 07/24/2024 1:30 PM EST Office Visit [facility] [place] [address] Jenni Brennan MD [facility] [place] [address] Scheduled Orders Name Type Priority Associated Diagnoses Orde r Schedule ENDOSCOPY CASE REQUEST: COLONOSCOPY, DIAGNOSTIC (WRVU 3.26) Procedures Routine BRBPR (bright red blood per rectum) Ordered: 07/18/2023 documented as of this encounter Visit Diagnoses Diagnosis BRBPR (bright red blood per rectum) Hemorrhage of rectum and anus documented in this encounter Care Teams Wharf Hand Relationship Specialty Start Date End Date Saumya Felipe APRN [address] [place] [address] PCP - General Family Medicine 12/31/22 documented as of this encounter
--- OUTSIDE RECORDS SUMMARY | 2024-05-25 14:50 | XMS_ITS | Encounter Summary ---
Author Organization Formerly [facility], [facility] Address [facility] [place] [address] Care Team Providers Care Stripper Color Name Role Phone Saumya Felipe APRN Primary Care Provider [phone] Encounter Details Date Type Department Care Team (Late st Contact Info) Description 04/30/2023 10:00 AM EDT Office [place] [address] Jerica Dubose MD [facility] [address] Luz Vinson APRN [facility] [place] [address] [facility] [address] Pre-op evaluation; Post-resection malabsorption; Status post bariatric surgery; Bariatric surgery status: 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 Social History Tobacco Use Types Packs/Day Years [...] - Inhaled Oxygen Concentration - - Weight 111.6 kg (246 lb) 04/30/2023 9:49 AM EDT Height 165.1 cm (5' 5) 04/30/2023 9:49 AM EDT Body Mass Index 40.94 04/30/2023 9:49 AM EDT documented in this encounter Patient Instructions * Patient Instructions* Luz Vinson Derek, COST ESTIMATING CLERK - 04/30/2023 10:00 AM EDT BSP aviation support equipment repairer Florecita [phone] and Casandra [phone] Dietitians: [phone] Surgeons/ nurse practitioners: [phone] Nurse line: [phone] Dear Tiffanie, Please see your electronic medical record note from today for details we discussed at your visit. Below is some additional general information that you may find helpful. Testing: It would be helpful if you can have your lab work drawn a couple days before your visit luis eduardo [facility] facility so the results are available at the time of your follow up visit. If you have labwork done by your primary home care assistant before that date, please have a copy sent to the Bariatric Surgery Program. Please call/send my [employer] message if you have not heard from us within 2 weeks of having labs work done. Here's the link to [facility] Lab hours and locations: [email or web address] Next visit: Follow up visits are done at 4 months and 12 months after surgery and yearly thereafter. Some patients are evaluated on a more frequent basis. Please call [phone] if you do not receive an appointment [...] Blow dry area on low setting with liberal arts and humanities chair. Avoid excessive heat and/or sweating as friction [...] such as Ibuprofen (Advil), Aleve (Naproxen), Excedrin, Bernie-[place] should be used sparingly after gastric bypass, [...] Our post surgery support group meets at [facility] on the first Saturday of every month from 1:00 PM-2:00 PM. You can attend online or in person. Use the following link to attend online: [email or web address] Nutrition and Activity apps- Baritastic, My Fitness Pal, Lose It, My Plate Internet resources: www.GenomeQuest www.Phoseon Technology www.bariatriceating.Nommunity www.Mintigo.Nommunity/blog [facility] facebook page: [email or web address] Books & Magazines: - Recipes for Life After Weight Loss Surgery by Ally Schmitt - Shrink Yourself by Dr Alban Mendez - Eating Well - www.Adaptive Payments.Nommunity - Cooking Light- www.cookingChumbak.Nommunity Anxiety: The Happiness Trap by Carlos A Tee The Mindfulness and acceptance workbook for anxiety By Rodriguez Zelaya. Mindful eating: What are you Hungry For? By Eugene Braden The Mindful Diet by Simran Hdez and the [facility] group. Emotional eating: End Emotional Eating by Liane Khalil Calming the Emotional Storm Lisseth Ayala documented in this encounter Progress Notes * Luz Vinson APRN - 04/30/2023 10:00 AM EDT Bariatric Surgery Program [place] [phone] Reason for visit: Bariatric Surgery follow up visit Subjective: Tiffanie Monreal is s/p laparoscopic Thomas-en-Y gastric bypass 09/30/[address] Downing, she presents today for interim BSP follow up (re: abdominal pain, iron deficiency, low vitamin D). Overall tolerating foods/fluids and trying to make sure she is meeting nutritional/fluid requirements. Last week Tiffanie called reporting abdominal pain. Episodes of pain started 1-2 months ago. Has had one ED visit thus far in March at [facility] (CT ruled out appendicitis). At the time she had BRBPR and then black tarry stool EGD/colo was recommended (scheduled but patient's weight is currently too high to have them done at [facility]). Has had no recurrence of blood in stool. Pain is constant but waxes and wanes. Severe pain in 2 episodes thus far (RLQ the first time, across the whole abdomen on 04/24. Pain on 04/24 was rated 11/10 and described as being ripped in half. The severe pain lasted about 1 hour. Severe pain was accompanied by nausea and dry heaves (hadn't really eaten). Tiffanie did not seek medical care during the episode and called BSP the next morning. Patient notes she had a fever of 101F the day before her severe pain. No recurrence of fevers since. Tiffanie endorses constipation at the time of our phone call last week, Miralax cleanout was recommended. Tiffanie reports she completed the clean out with expected results. She is now taking 1 cap Miralaxdaily. Now moving bowels 1-2x/day. Pain today is rated 5/10 and described as pressure (worse with movement including intercourse). Pain is located across the low abdomen (worse on R). Able to tolerate food/fluids (has been sticking tosofter foods). No current issues with NV.Tiffanie states pain may have been exacerbated by eating solid food (toast?) about 30 minutes after. Patient is s/p cholecystectomy. Tiffanie is seeing Dr. Dubose today for abdominal pain. Labs at last visit showed iron deficiency (low ferritin) and slightly low vitamin D. She has now been taking a MV with iron, started vitron C and started calcium chews with vitamin D, see below. Tiffanie continues to work on weight loss by increasing movement (limited by pain). 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 Tiffanie is also working on healthy eating (increasing protein intake, cottage cheese bowls). Weight has been stable since her last visit. Interim Health: Patient reports health has been stable overall. No bariatric related surgeries, hospitalizations, or ED visits since the last visit. No kidney stones or atraumatic fractures. Current Supplements: Taking Bariatric Fusion Multivitamin Capsule (2/day, with iron) Calcium citrate pills two pills twice a day (e//Sat, will increase to daily) Vitron C Mon/Weds/Fri B12 1000 mcg daily (recommend discontinuing, in Fusion) Hair skin and nails Pt follows with [...] bypass September 2018 Z98.84 Abdominal pannus E65 Review of Systems Constitutional: energy level is stable, no c/o restless leg, endorses hair thinning/loss. Neuro: no c/o paresthesias, no changes in memory. CV: no c/o chest pain or palpitations. Pulm: denies SOB or cough. GI: as above. HOBBER: s/p hysterectomy approx 2014 (ovaries intact). Skin: Endorses redundant skin (thighs, saw plastics, procedure will be covered by insurance, scheduled for NOV), endorses skin fold rashes (OTC powder, Nystatin). Tobacco/Nicotine use: None. ETOH use: Less than one drink/month. No NSAIDs. Dietary history/ exericse/ activity level: See dietitian note from today's visit for complete dietary evaluation. Meds and Allergies reviewed. Pre-op 08/25/18 Wt (lbs) 295 BMI 49 HT: 65 Post-op %EBW lost 10/24/18 275 45.8 14 01/21/19 238 39.7 40 07/24/19 215 35.9 55 11/20/19 Reports at 200 - - 09/26/20 215 35.9 55 11/05/22 249 41.5 32 12/31/22 247 41.1 33 04/30/23 246 40.9 34 Objective: Ht 165.1 cm (5' 5) Wt 111.6 kg (246 lb) BMI 40.94 kg/m?? Physical Exam General: Alert, pleasant, NAD, appears well. Abdomen: Soft, non-distended, non-tender. Resp: No increased work of breathing. Speaking in full sentences. No cough/wheeze witnessed. Skin: No excess skin noted over abdomen. Skin is warm and dry. No rash noted on exam today. Psychiatric: Normal mood and affect. Appropriate eye contact. Ferritin 12/31/22: 12 Vitamin D 12/31/22: 31 Assessment 38 y.o. female who is 4 years s/p Thomas-en-Y gastric bypass with 34% of excess body weight loss following up re: recent weight gain and low iron/low vitamin D and presenting for evaluation of recent episodic severe abdominal pain. Seeing Dr. Dubose today for abdominal pain. Plan: S/p bariatric surgery: Recent wt gain: discussion re: dietary considerations and strategies to move forward with weight loss. Reviewed importance of meeting nutritional/protein/fluid requirements, tracking food and food choices, measuring portions, pair carbs with protein, eat protein first being careful to avoid eating too fast, eating too much, drinking with meals, or not chewing well enough. Encouraged continued exercise. Discussed risks associated with alcohol intake after bariatric surgery (increased risk of alcohol misuse/abuse, increased risk of ulcers, empty calorie). Patient has met with machine silk screen printer today, please see note for additional details/dietary evaluation. 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 Obesity related co-morbidities: Improved/stable overall, patient to continue to follow with PCP/specialist. Risk for vitamin deficiencies: Ferritin and vitamin D pending. Reviewed recommended vitamin/mineral supplements- Continue vitron C M/W/F Increase calcium citrate to 2 pills twice daily (every day) Can stop additional B12 (in Fusion MV) See RD note for additional details re: vitamin/mineral supplementation. BSP follow up in 5 month for next BSP follow up visit, with labs. Call/rtc sooner prn with questions/concerns or unexplained abdominal pain, prolonged nausea, vomiting or inability to hydrate. Bariatric Program Summary report is availabe for patient's review via e-DH I spent a total of 30 minutes associated with this encounter, including chart review, the patient encounter, and documentation. Luz Vinson APRN RECOMMENDED BARIATRIC SURGERY PROGRAM POSTOPERATIVE FOLLOW-UP: [...] If labwork is done by the primary home care assistant: please send a copy to the Bariatric Surgery Program, General Surgery Clinic, [facility], or fax [phone] * Danya Gilmore RD - 04/30/2023 10:00 AM EDT Bariatric Surgery Program Nutrition Progress Note Encounter Type: follow up SUBJECTIVE: Topics Discussed/Patient Concerns: Pt reports severe intermittent abdominal pain, recent negative CT scan, pt to discuss next steps with Dr. Dubose today. 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, with 2 children ages 14 and 10; 2sisters had bariatric surgery; lives in [place], [place] OBJECTIVE: Date of Surgery: 09/30/18 Type of Surgery: RNY gastric bypass Weight History: Date Weight (lbs) Height (inches) BMI Max wt 311# 12/04/17 296.2# Initial program weight 08/25/18 295# 65 49 1st pre-op visit 09/30/18 %EWL Surgery 10/24/18 275# 14% 45.8 1st post-op check 07/24/19 215.8# 55% 35.9 10 month follow-up 11/19/18 200# ~1 year post-op (reported) 09/26/20 215.6# 55% 35.9 2 years post-op 11/05/22 249# 32% 41.5 4 yrs post-op 5/22/23 247# 33% 41.4 4 yrs, 3 mo post-op 04/30/23 246# 34% 40.9 4.5 yrs post-op MEDICATIONS: Vitamin/Mineral Supplements (reported by patient): Supplement Type Brand/Form Dosage/Amount Frequency Comments Multivitamin Bariatric Fusion MVM w/ 45 mg iron 2 capsules daily Advised pt to take 3 capsules per day per supplement label and suggested pt switch to One per day capsule w/ 45 mg iron when she finishes this bottle Calcium Tee citrate pills 2 pills Twice daily Taking e/o day, advised pt to increase to daily Vitamin B12 1,000 mcg daily Pt can d/c Iron Vitron C 1 pill MWF Hair, skin, and nails 2 pills daily Vitamin D none Rec based on labs Taking fish oil supplement 3x/wk Food Allergies/Intolerances: pork-certain types. Dairy- milk, ice cream- stomach cramps, diarrhea. Can do cheese, cottage cheese, small amount regular yogurt, Palauan yogurt Tracking Intake: tracking in notebook 24-Hour Intake: advised pt to monitor portions of snacks such as mixed nuts. Breakfast Oatmeal w/ banana- high protein, low-sugar made w/ water AM Snack Premier Protein -30g Lunch Cottage cheese 1/2 c, mini pepperoni, 1/4 c cheese, tomato sauce, spices, onions, green peppers PM Snack Cottage cheese and vegetables OR handful of PB pretzels, Premier Protein -30g Dinner Chicken enchilada w/ beans, corns, peppers, and onions in egg wrap HS Snack Protein/ grams per day: 100g Hydrating fluids- oz/ day: 24 oz x 6-8 water w/ CL, diet snapple iced tea, protein drink Soda: none ETOH: 1x/ month, 1 drink per occasoin Caffeine: In protein drink, occ coffee w/ SF creamer Sweets: Can only tolerate small amounts Meals per day: 3 Has had dumping syndrome: none In the past month, pt has vomited/regurgitated: +dry heaving w/ abdominal pain Constipation/Diarrhea: diarrhea w/ too much dairy Exercise: starting new job, will be on feet more. Wants to restart going to gym. ASSESSMENT: Summary of Weight Loss: Tiffanie Monreal returns for routine follow-up at 4.5 years s/p surgery. Her excess weight loss is at34%. Pt reports severe intermittent abdominal pain, recent negative CT scan, pt to discuss next steps with Dr. Dubose today. Pt is meeting protein and fluid goals despite pain, sticking to softer foods. Pt is motivated to lose weight for upcoming surgery, discussed limiting snacking, decreasing to 1 protein drink per day, and continuing to track intake. Pt has appt with [facility] in Aug 2023. Starting new job at [employer], looking forward to being more active, wants to go to gym before work. Reviewed supplements, advised pt to take supplements as listed above. NUTRITION INTERVENTION & MONITORING: Provided support/encouragement and reinforced importance of meeting nutritional goals. Great work meeting protein and fluid goals Can reduce to 1 protein drink per day Continue to track intake Monitor high calorie snacks Reviewed vitamin and mineral supplement recommendations. Multivitamin with minerals- switch to Bariatric Multivitamin 1 pill per day w/ 45 mg iron Calcium citrate 500-600 mg with vitamin D twice daily. (2 pills twice per day or 1 chew twice daily) Vitamin D- based on labs Iron- 65 mg iron with vitamin C 3 times per week (Saturday/Saturday), Vitron C is a popular option. Take miralax 1 cap a day on the day you take your iron supplement to minimize risk of constipation. Space iron 2 hours from calcium supplementation Do not take iron with caffeine, fiber, thyroid medications or dairy products Evaluation by nurse practitioner today. F/u in 5 mo, sooner if requested. * Jerica Dubose MD - 04/30/2023 10:00 AM EDT Tiffanie Monreal was seen today as part of her regular bariatric follow up. She admits to several episodes of rather significant, intermittent abdominal pain with at least 1 episode of tarry stools andblood per rectum. Given this presentation and recurrent nature despite PPI, I think it warrents diagnostic laparoscopy with EGD and colonoscopy. We will try to get this scheduled in the near future. documented in this encounter Plan of Treatment Upcoming Encounters Date Type Department Care Team (Late st Contact Info) Description 06/02/2024 8:00 AM EDT Office [place] [phone] Julienne Lacey APRN [facility] [place] [place] [address] 07/24/2024 1:30 PM EST Office [place] [address] Jenni Brennan MD [facility] [place] [address] documented as of this encounter Results * Vitamin B12 (09/30/2023 9:57 AM EST) Vitamin B12 392 232 - 1,245 pg/mL [facility] Blood 09/30/2023 9:57 AM EST 09/30/2023 10:07 AM EST Narrative Resulting Agency Comment Spec In Lab Luz E Alisson COST ESTIMATING CLERK CHEMISTRY ORDERABL ES Performing Organization Address [facility]/ZIP Co de Phone Number [facility] [place] [address] * Vitamin D, 25-Hydroxy (09/30/2023 9:57 AM EST) Vitamin D Total 25 OH 31 21 - 100 ng/mL [facility] Vit D Interp Sufficient [facility] Blood 09/30/2023 9:57 AM EST 09/30/2023 10:07 AM EST Narrative Resulting Agency Comment Spec In Lab Luz E Polk COST ESTIMATING CLERK CHEMISTRY ORDERABL ES Performing Organization Address City/[facility]/ZIP Co de Phone Number [facility] [place] [address] * Vitamin B1, whole blood (09/30/2023 9:57 AM EST) Vit B1 Lvl Wb (DECEMBER) 176 70 - 180 nmol/L [facility] Comment: ADDITIONAL INFORMATION This test was developed and its performance characteristics determined by [facility] in a manner consistent with CLIA requirements. This test has not been cleared or approved by the U.S. Food and Drug Administration. Test Performed by: [facility] [address] [place] [address] Rippler: Esvin Rodriguez M.D. Ph.D.; CLIA# [id number] Blood 09/30/2023 9:57 AM EST 09/30/2023 11:38 AM EST Narrative Resulting Agency Comment Spec In Lab Luz Vinson APRN LAB SEND OUT ORDER DOE Performing Organization Address [facility] Co de Phone Number [facility] [address] * PTH (09/30/2023 9:57 AM EST) Parathyroid Hormone 19 15 - 65 pg/mL [facility] Blood 09/30/2023 9:57 AM EST 09/30/2023 10:07 AM EST Narrative Resulting Agency Comment Spec In Lab Luz Vinson APRN CHEMISTRY ORDERABL ES Performing Organization Address [facility] Co de Phone Number [facility] [address] * (ABNORMAL) Iron and TIBC (09/30/2023 9:57 AM EST) Iron 36 30 - 150 mcg/dL [facility] TIBC 307 250 - 450 mcg/dL [facility] Iron Saturation 12(L) 20 - 50 % [facility] Blood 09/30/2023 9:57 AM EST 09/30/2023 10:07 AM EST Narrative Resulting Agency Comment Spec In Lab Luz E Alisson COST ESTIMATING CLERK CHEMISTRY ORDERABL ES Performing Organization Address City/[facility] Co de Phone Number [facility] [place] [address] * Hemogram (09/30/2023 9:57 AM EST) White Blood Cell 8.6 4.0 - 9.5 x10(3)/[facility] Red Blood Cell 4.59 4.00 - 5.21 x10(6)/[facility] Hemoglobin 13.1 11.7 - 15.5 g/dL [facility] Hematocrit 39.7 35.7 - 45.8 % [facility] Mean Cell Volume 86.5 82.6 - 94.4 fL [facility] Mean Cell Hemoglobin 28.5 27.1 - 32.0 pg [facility] Mean Cell Hemoglobin Concentration 33.0 31.7 - 35.0 g/dL [facility] Platelet 252 145 - 357 x10(3)/[facility] RDW Standard Deviation 42.0 37.0 - 46.0 fL [facility] RDW coefficient of variation 13.4 11.5 - 14.1 % [facility] Mean Platelet Volume 10.4 7.6 - 12.9 fL [facility] NRBC% auto 0.0 % [facility] NRBC Absolute 0.000 0.000 - 0.000 x10(3)/[facility] Blood 09/30/2023 9:57 AM EST 09/30/2023 10:07 AM EST Narrative Resulting Agency Comment Spec In Lab Luz E Polk COST ESTIMATING CLERK HEMATOLOGY ORDERAB LES Performing Organization Address City/[facility]/ZIP Co de Phone Number [facility] [place] [address] * Folate, serum (09/30/2023 9:57 AM EST) Folate 19.2 4.8 - 24.2 ng/mL [facility] Blood 09/30/2023 9:57 AM EST 09/30/2023 10:07 AM EST Narrative Resulting Agency Comment Spec In Lab Luz E Polk COST ESTIMATING CLERK CHEMISTRY ORDERABL ES Performing Organization Address [facility]/ZIP Co de Phone Number [facility] [place] [address] * Ferritin (09/30/2023 9:57 AM EST) Ferritin 58 6 - 175 ng/mL [facility] Comment: Please note that as of 07/17/2023, the reference intervals for Ferritin have been updated. Blood 09/30/2023 9:57 AM EST 09/30/2023 10:07 AM EST Narrative Resulting Agency Comment Spec In Lab Luz E Polk COST ESTIMATING CLERK CHEMISTRY ORDERABL ES Performing Organization Address [facility] Co de Phone Number [facility] [place] [address] * (ABNORMAL) Comprehensive metabolic panel (non-fasting) (09/30/2023 9:57 AM EST) Glucose 71 65 - 199 mg/dL [facility] Comment:Diabetes: >=200 mg/d L plus symptoms Blood Urea Nitrogen 6(L) 8 - 18 mg/dL [facility] Creatinine 0.58(L) 0.70 - 1.20 mg/dL [facility] Sodium 140 135 - 145 mmol/L [facility] Potassium 3.7 3.5 - 5.0 mmol/L [facility] Comment: Please note: ??Patients with WBC >100,000 may have falsely elevated Potassium levels. ??For accurate Potassium quantification in these patients send serum separator tube (gold top) for subsequent determinations. ??Contact the Clinical Chemistry Laboratory if there are any questions. Chloride 109(H) 98 - 107 mmol/L [facility] Carbon Dioxide 22 22 - 31 mmol/L [facility] Anion Gap 9 5 - 15 mmol/L [facility] Calcium 9.8 8.5 - 10.5 mg/dL [facility] Protein, Total 7.1 6.1 - 8.0 g/dL [facility] Albumin 4.2 3.2 - 5.2 g/dL [facility] Aspartate Aminotransferase 14 0 - 30 unit/L [facility] Alanine Aminotransferase 12 0 - 30 unit/L [facility] Alkaline Phosphatase 85 35 - 105 unit/L [facility] Bilirubin, Total 0.4 0.2 - 1.3 mg/dL [facility] Est Glomerular Filtration Rate 119 >=60 mL/min/1. 73 m?? [facility] Comment: This patient's estimated GFR [...] Lab Luz Vinson APRN CHEMISTRY ORDERABL ES [facility] [place] [phone] documented in this encounter Visit Diagnoses Diagnosis Pre-op evaluation Preoperative examination, unspecified Post-resection malabsorption Other and unspecified postsurgical nonabsorption Status post bariatric surgery Bariatric surgery status Bariatric surgery status: 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 Bariatric surgery status documented in this encounter Care Teams Stripper Color Relationship Specialty Start Date End Date Saumya Felipe APRN [address] [place] [address] PCP - General Family Medicine 12/31/22 documented as of this encounter
--- OUTSIDE RECORDS SUMMARY | 2024-05-25 14:50 | XMS_ITS | Encounter Summary ---
Author Organization Formerly [facility] [place] [address] Care Team Providers Care Chief Clerk Name Role Phone Kezia Aguirre MD Primary Care Provider [phone] Reason for Visit * Reason Comments Follow Up Surgery s/p panni - possible drain removal Encounter Details Date Type Department Care Team (Late st Contact Info) Description 01/12/2021 3:00 PM EDT Office Visit Plastic Surgery at [facility] [place] [address] Toshia Knapp APRN [facility] [place] [address] COVID-19 ruled out; Surgery follow-up Social History Tobacco Use Types [...] as of this encounter Progress Notes * Toshia Knapp APRN - 01/12/2021 3:00 PM EDT Plastic Surgery Post-Op Note Provider: Toshia Knapp APRN Reason for visit: F/U status post procedure Date of Surgery: 01/03/21 Procedure(s): panniculectomy (Shan) Complications: none reported HPI: Tiffanie Monreal presents in Follow-Up today, 9 Days post-procedure. She has been well since surgery. Her daily drainage output has been 40ml from left drain and minimal from right drain, for the past 2 days. Her pain level has been tolerable, and she is still sleeping in a chair/ recliner. She has been using Tylenol for pain control. Examination: Patient is alert, comfortable, ambulating Umbilicus: perfusd Umbilicus inset incision: C/D/I Transverse incision: C/D/I No collection, no erythema, no evidence of cellulitis Right drain: serosanguinous fluid in bulb - removed at today's visit Left drain: serosanguinous fluid in bulb Impression: Tiffanie Monreal was seen today in follow-up after the above procedure.Please see the operative note for details. She is doing relatively well. Patient was reassured that she is progressingwell. We discussed the importance of wearing a binder to alleviate pain and swelling. She should be guided by her body's response to resume physical activities. Plan: 1. Follow up early next week, if drainage output has been less than 30ml for two consecutive days 2. You may remove all dressings and shower tomorrow. Wash gently over all areas with soap and water. Pat dry, allow time to air dry. 4. Re-apply drain site dressings as needed for drainage. 5. Get up and walk at least around the house at least every 2 hours while awake. Refrain from more vigorous activities. 6. Wear binder as desired for comfort. 7. Activity restrictions for six weeks post-surgery: no pushing, no pulling, no lifting in excess of 5 pounds; no core-engaging activities 8. May now add ibuprofen to pain control regimen 9. Continue to strip drains and record output. I, Luisana Haro, have performed the documentation for this encounter in the presence of, and acting as a scribe for Toshia Knapp APRN. documented in this encounter Plan of Treatment Upcoming Encounters Date Type Department Care Team (Late st Contact Info) Description 06/02/2024 8:00 AM EDT Office [place] [address] Julienne Lacey APRN [facility] [place] [address] 07/24/2024 1:30 PM EST Office Visit Weight and Wellness at [facility] [place] [phone] Jenni Brennan MD [facility] [address] [address] documented as of this encounter Visit Diagnoses Diagnosis COVID-19 ruled out Surgery follow-up Follow-up examination, following unspecified surgery documented in this encounter Care Teams Chief Clerk Relationship Specialty Start Date End Date Kezia Aguirre MD [address] [place] [address] PCP - General Family Medicine 12/24/16 12/30/22 documented as of this encounter
--- OUTSIDE RECORDS SUMMARY | 2024-05-25 14:50 | XMS_ITS | Encounter Summary ---
Author Organization [facility] Address [facility] [place] [address] Care Team Providers Care Show Design Supervisor Name Role Phone Saumya Felipe APRN Primary Care Provider [phone] Encounter Details Date Type Department Care Team (Latest Contact Info) Description 12/31/2022 Travel Social History Tobacco Use Types Packs/Day [...] 8:00 AM EDT Office [place] [phone] Julienne Lacey APRN [facility] [place] [address] 07/24/2024 1:30 PM EST Office Visit [place] [phone] Jenni Brennan MD [facility] DR [address] [address] documented as of this encounter Visit Diagnoses Not on filedocumented in this encounter Care Teams Show Design Supervisor Relationship Specialty Start Date End Date Saumya Felipe APRN [address] [place] [address] PCP - General Family Medicine 12/31/22 documented as of this encounter
--- OUTSIDE RECORDS SUMMARY | 2024-05-25 14:50 | XMS_ITS | Encounter Summary ---
Author Organization [facility] [place] [address] Care Team Providers Care Intervention Analyst Name Role Phone Kezia Aguirre MD Primary Care Provider [phone] Reason for Visit * Reason Comments Follow Up Surgery s/p tissue rearrange ment/scar revision to right side of abdomen - drain removal Encounter Details Date Type Department Care Team (Late st Contact Info) Description 07/11/2021 8:20 AM EST Office [place] [address] Barbara Cardona [employer] [facility] [place] [address] Surgery follow-up Social History Tobacco Use Types [...] on file documented as of this encounter Patient Instructions * Patient Instructions* Barbara Cardona APRN - 07/11/2021 8:20 AM EST 1.Follow up: 3-6 months. 2. Activity restriction for six weeks post op: do not lift, push or pull more than 5 pounds. No core engaging activities. 3. Letter to return to work on 07/12/21 with no bending, twisting, or lifting any more than 5lbs for 6 weeks. documented in this encounter Progress Notes * Barbara Cardona APRN - 07/11/2021 8:20 AM EST Plastic Surgery Post Op Note Barbara Cardona APRN. Reason for visit: F/U status post procedure Date of surgery: 07/04/21 Procedure(s): scar revision to abdomen scar (Shan) Complications: None reported Date of Surgery: 01/03/21 Procedure(s): panniculectomy (Shan) Complications: none reported HPI: Pt reports being well. Drain output has been 25-30 ml per day. The patient would like to return to work as soon as possible. Examination: Patient is alert, conversant, comfortable, ambulating Incision: CDI, healing well. No collection, no erythema, no evidence of cellulitis. Drain in place with serous fluid in bulb - removed today. Impression: Tiffanie Monreal is a 36 y.o. female who was seen today for follow-up after the above procedure. Please see the operative note for details. She is doing well without complaints. Plan: 1.Follow up: 3-6 months. 2. Activity restriction for six weeks post op: do not lift, push or pull more than 5 pounds. No core engaging activities. 3. Letter to return to work on 07/12/21 with no bending, twisting, or lifting any more than 5lbs for 6 weeks. I, Meggan Joshi, have performed the documentation for this encounter in the presence of and acting as a scribe for BARBARA CARDONA APRN. I performed the services which were documented by the scribe, and I agree with the accuracy of the documentation in this encounter. BARBARA CARDONA APRN documented in this encounter Plan of Treatment Upcoming Encounters Date Type Department Care Team (Late st Contact Info) Description 06/02/2024 8:00 AM EDT Office [place] [phone] Julienne Lacey APRN [facility] [place] [address] 07/24/2024 1:30 PM EST Office Visit [place] [phone] Jenni Brennan MD [facility] [address] [place] [address] documented as of this encounter Visit Diagnoses Diagnosis Surgery follow-up Follow-up examination, following unspecified surgery documented in this encounter Care Teams Intervention Analyst Relationship Specialty Start Date End Date Kezia Aguirre MD [address] [place] [address] PCP - General Family Medicine 12/24/16 12/30/22 documented as of this encounter
--- OUTSIDE RECORDS SUMMARY | 2024-05-25 14:50 | XMS_ITS | Encounter Summary ---
Author Organization Formerly [facility] [place] [address] Care Team Providers Care Med Aide Name Role Phone Kezia Aguirre MD Primary Care Provider [phone] Encounter Details Date Type Department Care Team (Late st Contact Info) Description 10/10/2022 Orders [place] [address] Luz Vinson [facility] [place] [address] Post-resection malabsorption; Status post bariatric surgery Social [...] 8:00 AM EDT Office [place] [address] Julienne Lacey [facility] [place] [address] 07/24/2024 1:30 PM EST Office Visit [place] [address] Jenni Brennan MD [facility] DR [address] [place] [address] documented as of this encounter Results * Vitamin D, 25-Hydroxy (11/05/2022 1:49 PM EDT) Vitamin D Total 25 OH 37 21 - 100 ng/mL [facility] Vit D Interp Sufficient [facility] Blood 11/05/2022 1:49 PM EDT 11/05/2022 2:14 PM EDT Narrative Resulting Agency Comment Spec In Lab Luz E Garryowen PURCHASING ASSOCIATE CHEMISTRY ORDERABL ES Performing Organization Address [facility]/ZIP Co de Phone Number [facility] [place] [address] * Vitamin B12 (11/05/2022 1:49 PM EDT) Vitamin B12 703 232 - 1,245 pg/mL [facility] Blood 11/05/2022 1:49 PM EDT 11/05/2022 2:14 PM EDT Narrative Resulting Agency Comment Spec In Lab Luz E Garryowen PURCHASING ASSOCIATE CHEMISTRY ORDERABL ES Performing Organization Address [facility] Co de Phone Number [facility] [place] [address] * (ABNORMAL) Vitamin B1, whole blood (11/05/2022 1:49 PM EDT) Vit B1 Lvl Wb (DECEMBER) 191(H) 70 - 180 nmol/L [facility] Comment: ADDITIONAL INFORMATION This test was developed and its performance characteristics determined by [facility] in a manner consistent with CLIA requirements. This test has not been cleared or approved by the U.S. Food and Drug Administration. Test Performed by: [facility] - [address], [place] [address] Control Clerk Auditing: Esvin Rodriguez M.D. Ph.D.; CLIA# [id number] Blood 11/05/2022 1:49 PM EDT 11/05/2022 2:35 PM EDT Narrative Resulting Agency Comment Spec In Lab Luz E Garryowen PURCHASING ASSOCIATE LAB SEND OUT ORDER DOE Performing Organization Address [facility]/ZIP Co de Phone Number [facility] [place] [address] * PTH (11/05/2022 1:49 PM EDT) Parathyroid Hormone 38 15 - 65 pg/mL [facility] Blood 11/05/2022 1:49 PM EDT 11/05/2022 2:14 PM EDT Narrative Resulting Agency Comment Spec In Lab Luz E Alisson PURCHASING ASSOCIATE CHEMISTRY ORDERABL ES Performing Organization Address [facility] Co de Phone Number [facility] [place] [address] * Iron and TIBC (11/05/2022 1:49 PM EDT) Iron 79 30 - 150 mcg/dL [facility] TIBC 395 250 - 450 mcg/dL [facility] Iron Saturation 20 20 - 50 % [facility] Blood 11/05/2022 1:49 PM EDT 11/05/2022 2:14 PM EDT Narrative Resulting Agency Comment Spec In Lab Luz E Garryowen PURCHASING ASSOCIATE CHEMISTRY ORDERABL ES Performing Organization Address [facility] Co de Phone Number [facility] [place] [address] * Hemogram (11/05/2022 1:49 PM EDT) White Blood Cell 7.5 4.0 - 9.5 x10(3)/[facility] Red Blood Cell 4.60 4.00 - 5.21 x10(6)/[facility] Hemoglobin 12.9 11.7 - 15.5 g/dL [facility] Hematocrit 39.7 35.7 - 45.8 % [facility] Mean Cell Volume 86.3 82.6 - 94.4 fL [facility] Mean Cell Hemoglobin 28.0 27.1 - 32.0 pg [facility] Mean Cell Hemoglobin Concentration 32.5 31.7 - 35.0 g/dL [facility] Platelet 299 145 - 357 x10(3)/[facility] RDW Standard Deviation 42.0 37.0 - 46.0 fL [facility] RDW coefficient of variation 13.3 11.5 - 14.1 % [facility] Mean Platelet Volume 10.4 7.6 - 12.9 fL [facility] NRBC% auto 0.0 % [facility] ITAL LABORAT[facility] NRBC Absolute 0.000 0.000 - 0.000 x10(3)/[facility] Blood 11/05/2022 1:49 PM EDT 11/05/2022 2:14 PM EDT Narrative Resulting Agency Comment Spec In Lab Luz E Garryowen PURCHASING ASSOCIATE HEMATOLOGY ORDERAB LES Performing Organization Address [facility]/ZIP Co de Phone Number [facility] [place] [address] * Folate, serum (11/05/2022 1:49 PM EDT) Pathologist [facility] Folate >20.0 4.8 - 24.2 ng/mL [facility] Blood 11/05/2022 1:49 PM EDT 11/05/2022 2:14 PM EDT Narrative Resulting Agency Comment Spec In Lab Luz E Garryowen PURCHASING ASSOCIATE CHEMISTRY ORDERABL ES Performing Organization Address City/[facility]/ZIP Co de Phone Number [facility] [place] [address] * (ABNORMAL) Ferritin (11/05/2022 1:49 PM EDT) Ferritin 12(L) 15 - 150 ng/mL [facility] Comment: Pediatric reference ranges not verified at [facility], interpret with caution. Reference ranges for females greater than 50 years of age approach values for men, i.e., 30-400 ng/mL. Blood 11/05/2022 1:49 PM EDT 11/05/2022 2:14 PM EDT Narrative Resulting Agency Comment Spec In Lab Luz E Alisson PURCHASING ASSOCIATE CHEMISTRY ORDERABL ES [facility] [place] [address] * (ABNORMAL) Comprehensive metabolic panel (non-fasting) (11/05/2022 1:49 PM EDT) Glucose 96 65 - 199 mg/dL [facility] Comment:Diabetes: >=200 mg/d L plus symptoms Blood Urea Nitrogen 10 8 - 18 mg/dL [facility] Creatinine 0.55(L) 0.70 - 1.20 mg/dL [facility] Sodium 139 135 - 145 mmol/L [facility] Potassium 4.2 3.5 - 5.0 mmol/L [facility] Comment: Please note: ??Patients with WBC >100,000 may have falsely elevated Potassium levels. ??For accurate Potassium quantification in these patients send serum separator tube (gold top) for subsequent determinations. ??Contact the Clinical Chemistry Laboratory if there are any questions. Chloride 104 98 - 107 mmol/L [facility] Carbon Dioxide 23 22 - 31 mmol/L [facility] Anion Gap 12 5 - 15 mmol/L [facility] Calcium 9.5 8.5 - 10.5 mg/dL [facility] Protein, Total 7.3 6.1 - 8.0 g/dL [facility] Albumin 4.2 3.2 - 5.2 g/dL [facility] Aspartate Aminotransferase 14 0 - 30 unit/L [facility] Alanine Aminotransferase 9 0 - 30 unit/L [facility] Alkaline Phosphatase 74 35 - 105 unit/L [facility] Bilirubin, Total 0.2 0.2 - 1.3 mg/dL [facility] Est Glomerular Filtration Rate 121 >=60 mL/min/1. 73 m?? [facility] Comment: This patient's estimated GFR [...] and symptoms in addition to eGFR. 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
--- OUTSIDE RECORDS SUMMARY | 2024-05-25 14:50 | XMS_ITS | Encounter Summary ---
Author Organization [facility] [place] [address] Care Team Providers Care Public Health Internship Name Role Phone Kezia Aguirre MD Primary Care Provider [phone] Encounter Details Date Type Department Care Team (Latest Contact Info) Description 11/05/2022 1:40 PM EDT Laboratory Appointment Lab [address] [place] [address] Post-resection malabsorption; Status post bariatric [...] as of this encounter Progress Notes * Luz Vinson APRN - 11/05/2022 1:40 PM EDT Elevated B1, letter sent on My documented in this encounter Plan of Treatment Upcoming Encounters Date Type Department Care Team (Late st Contact Info) Description 06/02/2024 8:00 AM EDT Office [place] [phone] Julienne Lacey APRN [facility] [place] [address] 07/24/2024 1:30 PM EST Office [place] [address] Jenni Brennan MD [facility] J[facility]ET [place] [address] documented as of this encounter Procedures Procedure Name Priority Date/Time Associated Diagnosis Comments HC PARATHYROID HORMONE(PTH INTACT Routine 11/05/2022 1:49 PM EDT Post-resection malabsorption Status post bariatric surgery HC HEMOGRAM Routine 11/05/2022 1:49 PM EDT Post-resection malabsorption Status post bariatric surgery HC PCH THIAMIN LVL(VITAMIN B1) WB-RIDER Routine 11/05/2022 1:49 PM EDT Post-resection malabsorption Status post bariatric surgery HC IRON BINDING CAPACITY Routine 11/05/2022 1:49 PM EDT Post-resection malabsorption Status post bariatric surgery HC VENIPUNCTURE Routine 11/05/2022 1:49 PM EDT Post-resection malabsorption Status post bariatric surgery FOLATE, SERUM Routine 11/05/2022 1:49 PM EDT Post-resection malabsorption Status post bariatric surgery FERRITIN Routine 11/05/2022 1:49 PM EDT Post-resection malabsorption Status post bariatric surgery HC VITAMIN B12 SERUM Routine 11/05/2022 1:49 PM EDT Post-resection malabsorption Status post bariatric surgery COMPREHENSIVE METABOLIC PANEL Routine 11/05/2022 1:49 PM EDT Post-resection malabsorption Status post bariatric surgery documented in this encounter Results * (ABNORMAL) Comprehensive metabolic panel (non-fasting) (11/05/2022 1:49 PM EDT) Glucose 96 65 - 199 mg/dL [facility] Comment:Diabetes: >=200 mg/d L plus symptoms Blood Urea Nitrogen 10 8 - 18 mg/dL [facility] Creatinine 0.55(L) 0.70 - 1.20 mg/dL [facility] Sodium 139 135 - 145 mmol/L [facility] Potassium 4.2 3.5 - 5.0 mmol/L [facility] Comment: Please note: ??Patients with WBC >100,000 may have falsely elevated Potassium levels. ??For accurate Potassium quantification in these patients send serum separator tube (gold top) for subsequent determinations. ??Contact the Clinical Chemistry Laboratory if there are any questions. Chloride 104 98 - 107 mmol/L [facility] Carbon Dioxide 23 22 - 31 mmol/L [facility] Anion Gap 12 5 - 15 mmol/L [facility] Calcium 9.5 8.5 - 10.5 mg/dL [facility] Protein, Total 7.3 6.1 - 8.0 g/dL [facility] Albumin 4.2 3.2 - 5.2 g/dL [facility] Aspartate Aminotransferase 14 0 - 30 unit/L [facility] Alanine Aminotransferase 9 0 - 30 unit/L [facility] Alkaline Phosphatase 74 35 - 105 unit/L [facility] Bilirubin, Total 0.2 0.2 - 1.3 mg/dL [facility] Est Glomerular Filtration Rate 121 >=60 mL/min/1. 73 m?? [facility] Comment: This patient's estimated [...] Agency Comment Spec In Lab Luz E [place] SOLDERING MACHINE OPERATOR CHEMISTRY ORDERABL ES Performing Organization Address City/[facility]/ZIP Co de Phone Number [facility] [place] [address] * (ABNORMAL) Ferritin (11/05/2022 1:49 PM EDT) Pathologist [facility] Ferritin 12(L) 15 - 150 ng/mL [facility] Comment: Pediatric reference ranges not verified at [facility], interpret with caution. Reference ranges for females greater than 50 years of age approach values for men, i.e., 30-400 ng/mL. Blood 11/05/2022 1:49 PM EDT 11/05/2022 2:14 PM EDT Narrative Resulting Agency Comment Spec In Lab Luz E Alisson SOLDERING MACHINE OPERATOR CHEMISTRY ORDERABL ES Performing Organization Address [facility] Co de Phone Number [facility] [place] [address] * Folate, serum (11/05/2022 1:49 PM EDT) Pathologist [facility] Folate >20.0 4.8 - 24.2 ng/mL [facility] Blood 11/05/2022 1:49 PM EDT 11/05/2022 2:14 PM EDT Narrative Resulting Agency Comment Spec In Lab Luz E Alisson SOLDERING MACHINE OPERATOR CHEMISTRY ORDERABL ES Performing Organization Address [facility] Co de Phone Number [facility] [place] [address] * Hemogram (11/05/2022 1:49 PM EDT) White Blood Cell 7.5 4.0 - 9.5 x10(3)/[facility] Red Blood Cell 4.60 4.00 - 5.21 x10(6)/[facility] Hemoglobin 12.9 11.7 - 15.5 g/dL [facility] Hematocrit 39.7 35.7 - 45.8 % [facility] Mean Cell Volume 86.3 82.6 - 94.4 fL [facility] Mean Cell Hemoglobin 28.0 27.1 - 32.0 pg [facility] Mean Cell Hemoglobin Concentration 32.5 31.7 - 35.0 g/dL [facility] Platelet 299 145 - 357 x10(3)/[facility] RDW Standard Deviation 42.0 37.0 - 46.0 fL [facility] RDW coefficient of variation 13.3 11.5 - 14.1 % [facility] Mean Platelet Volume 10.4 7.6 - 12.9 fL [facility] NRBC% auto 0.0 % [facility] NRBC Absolute 0.000 0.000 - 0.000 x10(3)/[facility] Blood 11/05/2022 1:49 PM EDT 11/05/2022 2:14 PM EDT Narrative Resulting Agency Comment Spec In Lab Luz E [place] SOLDERING MACHINE OPERATOR HEMATOLOGY ORDERAB LES Performing Organization Address [facility] de Phone Number [facility] [place] [address] * Iron and TIBC (11/05/2022 1:49 PM EDT) Iron 79 30 - 150 mcg/dL [facility] TIBC 395 250 - 450 mcg/dL [facility] Iron Saturation 20 20 - 50 % [facility] Blood 11/05/2022 1:49 PM EDT 11/05/2022 2:14 PM EDT Narrative Resulting Agency Comment Spec In Lab Luz E Alisson SOLDERING MACHINE OPERATOR CHEMISTRY ORDERABL ES Performing Organization Address [facility] Co de Phone Number [facility] [place] [address] * PTH (11/05/2022 1:49 PM EDT) Parathyroid Hormone 38 15 - 65 pg/mL [facility] Blood 11/05/2022 1:49 PM EDT 11/05/2022 2:14 PM EDT Narrative Resulting Agency Comment Spec In Lab Luz E Alisson SOLDERING MACHINE OPERATOR CHEMISTRY ORDERABL ES Performing Organization Address [facility]/State/ZIP Co de Phone Number [facility] [place] [address] * (ABNORMAL) Vitamin B1, whole blood (11/05/2022 1:49 PM EDT) Vit B1 Lvl Wb (DECEMBER) 191(H) 70 - 180 nmol/L [facility] Comment: ADDITIONAL INFORMATION This test was developed and its performance characteristics determined by [facility] in a manner consistent with CLIA requirements. This test has not been cleared or approved by the U.S. Food and Drug Administration. Test Performed by: [facility] - [address] [address] Refinisher: Esvin Rodriguez M.D. Ph.D.; CLIA# [id number] Blood 11/05/2022 1:49 PM EDT 11/05/2022 2:35 PM EDT Narrative Resulting Agency Comment Spec In Lab Luz E Alisson SOLDERING MACHINE OPERATOR LAB SEND OUT ORDER DOE Performing Organization Address [facility]/ZIP Co de Phone Number [facility] [place] [address] * Vitamin B12 (11/05/2022 1:49 PM EDT) Vitamin B12 703 232 - 1,245 pg/mL [facility] Blood 11/05/2022 1:49 PM EDT 11/05/2022 2:14 PM EDT Narrative Resulting Agency Comment Spec In Lab Luz E [place] SOLDERING MACHINE OPERATOR CHEMISTRY ORDERABL ES Performing Organization Address City/[facility]/ZIP Co de Phone Number [facility] [place] [address] * Vitamin D, 25-Hydroxy (11/05/2022 1:49 PM EDT) Vitamin D Total 25 OH 37 21 - 100 ng/mL [facility] Vit D Interp Sufficient 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
--- OUTSIDE RECORDS SUMMARY | 2024-05-25 14:50 | XMS_ITS | Encounter Summary ---
Author Organization [facility] [place] [address] Care Team Providers Care Burr Bench Hand Name Role Phone Saumya Felipe APRN Primary Care Provider [phone] Encounter Details Date Type Department Care Team (Latest Contact Info) Description 12/31/2022 2:00 PM EDT Laboratory Appointment Lab [address] [place] [address] Post-resection malabsorption; Status post bariatric [...] 8:00 AM EDT Office [place] [address] Julienne Lacey APRN [facility] [place] [address] 07/24/2024 1:30 PM EST Office [place] [address] Jenni Brennan MD [facility] [place] [address] documented as of this encounter Procedures Procedure Name Priority Date/Time Associated Diagnosis Comments VITAMIN D, 25-HYDROXY Routine 12/31/2022 2:18 PM EDT Post-resection malabsorption Status post bariatric surgery FERRITIN Routine 12/31/2022 2:18 PM EDT Post-resection malabsorption Status post bariatric surgery documented in this encounter Results * Vitamin D, 25-Hydroxy (12/31/2022 2:18 PM EDT) Vitamin D Total 25 OH 31 21 - 100 ng/mL [facility] Vit D Interp Sufficient [facility] Blood 12/31/2022 2:18 PM EDT 12/31/2022 2:37 PM EDT Narrative Resulting Agency Comment Spec In Lab Luz E Bullock PLANT RELIABILITY ENGINEER CHEMISTRY ORDERABL ES Performing Organization Address [facility] Co de Phone Number [place] [address] * (ABNORMAL) Ferritin (12/31/2022 2:18 PM EDT) Ferritin 12(L) 15 - 150 ng/mL [facility] Comment: Pediatric reference ranges not verified at [facility], interpret with caution. Reference ranges for females greater than 50 years of age approach values for men, i.e., 30-400 ng/mL. Blood 12/31/2022 2:18 PM EDT 12/31/2022 2:37 PM EDT Narrative Resulting Agency Comment Spec In Lab Luz E Alisson PLANT RELIABILITY ENGINEER CHEMISTRY ORDERABL ES Performing Organization Address [facility] Co de Phone Number [facility] [place] [address] documented in this encounter Visit Diagnoses Diagnosis Post-resection malabsorption Other and unspecified postsurgical nonabsorption Status post bariatric surgery Bariatric surgery status documented in this encounter Care Teams Burr Bench Hand Relationship Specialty Start Date End Date Saumya Felipe APRN [address] [place] [address] PCP - General Family Medicine 12/31/22 documented as of this encounter
--- OUTSIDE RECORDS SUMMARY | 2024-05-25 14:50 | XMS_ITS | Encounter Summary ---
Author Organization [facility] [place] [address] Care Team Providers Care Corn Detasseler Name Role Phone Saumya Felipe APRN Primary Care Provider [phone] Reason for Referral * Consultation (Routine) - Closed Specialty Diagnoses / Procedures Referred By Sayda antoine Referred To Contact Plastic Surgery Diagnoses Intertrigo rediscuss thighplasty Luz Vinson APRN [facility] [place] [address] [facility] [place] [address] [address] Referral ID Status Reason Start Date Expiration Date V isits Requested Visits Authorized [id number] Closed Consult, Test & Treat 12/31/2022 12/31/2023 1 1 Reason for Visit * Reason Comments Follow-up Encounter Details Date Type Department Care Team (Late st Contact Info) Description 12/31/2022 3:00 PM EDT Office [place] [address] Luz Vinson APRN [facility] [place] [address] [facility] [place] [address] Intertrigo (Primary Dx); Post-resection malabsorption; Status post bariatric surgery Social [...] Sign Reading Time Taken Comments Blood Pressure 113/67 12/31/2022 2:40 PM EDT Pulse 62 12/31/2022 2:40 PM EDT Temperature 36.3 ??C (97.4 ??F) 12/31/2022 2:40 PM ED T Respiratory Rate 16 12/31/2022 2:40 PM EDT Oxygen Saturation 100% 12/31/2022 2:40 PM EDT Inhaled Oxygen Concentration - - Weight 112 kg (247 lb) 12/31/2022 2:40 PM EDT Height 165.1 cm (5' 5) 12/31/2022 2:40 PM EDT Body Mass Index 41.1 12/31/2022 2:40 PM EDT documented in this encounter Patient Instructions * Patient Instructions* Luz Vinson APRN - 12/31/2022 3:00 PM EDT [facility] it application support analyst Florecita [phone] and Casandra [phone] Dietitians: [phone] Surgeons/ nurse practitioners: [phone] Nurse line: [phone] Dear Tiffanie, Please see your electronic medical record note from today for details we discussed at your visit. Below is some additional general information that you may find helpful. Testing: It would be helpful if you can have your lab work drawn a couple days before your visit luis eduardo [facility] facility so the results are available at the time of your follow up visit. If you have labwork done by your primary long term care social worker before that date, please have a copy sent to the Bariatric Surgery Program. Please call/send my message if you have not heard from us within 2 weeks of having labs work done. Here's the link to [facility] Lab hours and locations: [email or web address] Next visit: Follow up visits are done at 4 months and 12 months after surgery and yearly thereafter. Some patients are evaluated on a more frequent basis. Please call [phone] if you do not receive an appointment [...] Blow dry area on low setting with chair frame builder. Avoid excessive heat and/or sweating as friction [...] such as Ibuprofen (Advil), Aleve (Naproxen), Excedrin, [place] should be used sparingly after gastric bypass, [...] Our post surgery support group meets at [facility] on the first Saturday of every month from 1:00 PM-2:00 PM. You can attend online or in person. Use the following link to attend online: [email or web address] Nutrition and Activity apps- Baritastic, My Fitness Pal, Lose It, My Plate Internet resources: www.Recipharm wwwGigamon www.bariatriceating.Kwaga www.Source4Style.Kwaga/blog [facility] facebook page: [email or web address]://www.[email or web address] Books & Magazines: - Recipes for Life After Weight Loss Surgery by Ally Schmitt - Shrink Yourself by Dr Alban Mendez - Eating Well - www.Five Cool - Cooking Light- www.cookinglight.Kwaga Anxiety: The Happiness Trap by Carlos A Tee The Mindfulness and acceptance workbook for anxiety By Rodriguez Zelaya. Mindful eating: What are you Hungry For? By Eugene Braden The Mindful Diet by Simran Hdez and the [facility] group. Emotional eating: End Emotional Eating by Liane Khalil Calming the Emotional Storm Lisseth Ayala documented in this encounter Progress Notes * Luz Vinson APRN - 12/31/2022 3:00 PM ED[place] [address] Reason for visit: Bariatric Surgery follow up visit Subjective: Tiffanie Monreal is s/p laparoscopic Thomas-en-Y gastric bypass 09/30/[address] Downing, she presents today for interim BSP follow up (re: iron deficiency, low vitamin D and weight loss support). Overall tolerating foods/fluids and trying to make sure she is meeting nutritional/fluid requirements. Pt reports no difficulty swallowing, epigastric pain, or bloating. No GERD. No N/V. BM are without problems. At her last visit Tiffanie reported concerns re: weight gain after an achilles injury (led to decreased activity and change in diet). Today she states she has been more active and doing more meal prep/meal planning. Labs at last visit showed iron deficiency (low ferritin) and slightly low vitamin D. She has since switched to a MV with iron and started calcium chews with vitamin D. Interim Health: Patient reports health has been stable overall. No bariatric related surgeries, hospitalizations, or ED visits since the last visit. No kidney stones or atraumatic fractures. Current Supplements: ?? Taking Bariatric Fusion Multivitamin Capsule (2/day, with iron) ?? Calcium citrate chews twice a day ?? Hair skin and nails Pt follows with PCP/specialist for disease management and age specific screening. Pre-Bariatric Surgery Obesity related medical issues: ? Diabetes []? Yes [x]? Not a baseline issue ? HTN: []? Yes [x]? Not a baseline issue ? GERD: []? Yes [x]? Not a baseline issue ? Hyperlipidemia: []? Yes [x]? Not a baseline issue ? ESTHELA: []? Yes [x]? Not a baseline issue ? Musculoskeletal issues: [x]? Yes back pain improved with weight loss, recent achilles injury. []?Not a baseline issue ? Liver Disease: Not a baseline issue. Patient Active Problem List Diagnosis Code ??? Breast hypertrophy N62 ??? 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 Insomnia G47.00 ??? Major depressive disorder F32.9 ??? Anxiety disorder F41.9 ??? Bariatric surgery status: 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 Z98.84 ??? Abdominal pannus E65 Review of Systems Constitutional: energy level is stable (fatigue), no c/o restless leg, endorses hair thinning/loss. Neuro: no c/o paresthesias, no changes in memory. CV: no c/o chest pain or palpitations. Pulm: denies SOB or cough. GI: as above. STAFF PHYSICAL THERAPIST: s/p hysterectomy approx 2014. Skin: Endorses redundant skin (thighs, saw plastics, procedure will be covered by insurance), endorses skin fold rashes (OTC powder, Nystatin). Tobacco/Nicotine use: None. ETOH use: None. PRN needing about 1-2x /month NSAID use. ?? Dietary history/ exericse/ activity level: See dietitian note from today's visit for complete dietary evaluation. Meds and Allergies reviewed. Pre-op 08/25/18 Wt (lbs) 295 BMI 49 ? HT: 65 ? Post-op ? %EBW lost 10/24/18 275 45.8 14 01/21/19 238 39.7 40 07/24/19 215 35.9 55 11/20/19 Reports at 200 - - 09/26/20 215 ?? 35.9 55 11/05/22 249 41.5 32 12/31/22 247 41.1 33 ?? Objective: BP 113/67 Pulse 62 Temp 36.3 ??C (97.4 ??F) (Temporal) Resp 16 Ht 165.1 cm (5' 5) Wt 112kg (247 lb) SpO2 100% BMI 41.10 kg/m?? Physical Exam General: Alert, pleasant, NAD, appears well. Abdomen: Soft, non-distended, non-tender. Resp: No increased work of breathing. Speaking in full sentences. No cough/wheeze witnessed. Skin: No excess skin noted over abdomen. Skin is warm and dry. No rash noted on exam today. Psychiatric: Normal mood and affect. Appropriate eye contact. Lab Results Component Value Date FERRITIN 12 (L) 12/31/2022 25-OH Vit D Total (ng/mL) Date Value Status 12/31/2022 31 Final Assessment 37 y.o. female who is 4 years s/p Thomas-en-Y gastric bypass with 33% of excess body weight loss following up re: recent weight gain and low iron/low vitamin D. Plan: ??? S/p bariatric surgery: ??? Recent wt gain: discussion re: dietary considerations and strategies to move forward with weight loss. Reviewed importance of meeting nutritional/protein/fluid requirements, tracking food and food choices, measuring portions, pair carbs with protein, eat protein first being careful to avoid eating too fast, eating too much, drinking with meals, or not chewing well enough. Encouraged continuedexercise. ??? Discussed risks associated with alcohol intake after bariatric surgery (increased risk of alcohol misuse/abuse, increased risk of ulcers, empty calorie). o Patient has met with paint line operator today, please see note for additional details/dietary evaluation. ?? 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 ??? Obesity related co-morbidities: o Improved/stable overall, patient to continue to follow with PCP/specialist. ??? Risk for vitamin deficiencies: o Reviewed lab results as above. o Reviewed recommended vitamin/mineral supplements- - Start vitron C M/W/F - Continue remaining supplements as above - Follow up in 4 months with labs. o See RD note for additional details re: vitamin/mineral supplementation. BSP follow up in 4 month for next BSP follow up visit, [...] If labwork is done by the primary long term care social worker: please send a copy to the Bariatric Surgery Program, General Surgery Clinic, [facility], or fax [phone] * Danya Gilmore RD - 12/31/2022 3:00 PM EDT Bariatric Surgery Program Nutrition Progress Note Encounter Type: follow up SUBJECTIVE: Topics Discussed/Patient Concerns: ?? Pt reports doing more walking and more activity in afternoon ?? Restarted using Pelaton bike ?? Pt states she has been more aware of intake ?? Tracked for ~2 wks ?? Has been meal planning/prepping ?? Has not called [facility] yet ?? 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 OBJECTIVE: Date of Surgery:??09/30/18 Type of Surgery:??RNY gastric bypass ?? Weight History:?? Date Weight (lbs) Height (inches) BMI ? Max wt 311# 12/04/17 296.2# ? Initial program weight 08/25/18 295# 65 49 1st pre-op visit 09/30/18 ?? %[facility] ?? Surgery 10/24/18 275# 14% 45.8 1st post-op check 07/24/19 215.8# 55% 35.9 10??month follow-up ??11/19/18 ??200# ?~1 year post-op (reported) 09/26/20 215.6# 55% 35.9 2 years post-op 11/05/22 249# 32% 41.5 4 yrs post-op 12/31/22 247# 33% 41.4 4 yrs, 3 mo post-op ? MEDICATIONS: Vitamin/Mineral Supplements??(reported by patient): Supplement Type Brand/Form Dosage/Amount Frequency Comments Multivitamin Bariatric Fusion MVM w/ 45 mg iron 2 capsules daily Calcium Fusion penelope citrate?? 1 chew?? Twice daily Vitamin??B12 ? Iron ? Pt to start iron supplement per Luz Menard, REINFORCED STEEL PLACING SUPERVISOR?? Hair, skin, and nails ?? 2 pills daily ?? Vitamin D2 ?Recheck in 4 mo ??Taking fish oil supplement 3x/wk Food Allergies/Intolerances:??pork-certain types. Dairy- milk, ice cream- stomach cramps, diarrhea.Can do cheese, cottage cheese, small amount regular yogurt, Turkmen yogurt ?? Tracking Intake:??Occ tracking ?? 24-Hour??Intake:??advised pt to monitor portions of snacks such as mixed nuts. Breakfast EM w/ PB, egg whites w/ cheese AM Snack Veggies and hummus Lunch Meat and cheese roll-ups OR tuna on salad PM Snack Dinner Steak (3 oz), green beans, salad HS Snack Protein/ grams per day: 60g Hydrating fluids- oz/ day: 32 oz x 4-6 water, occ diet snapple iced tea Soda: none ETOH: 1x/ month, 1 drink per occasoin Caffeine: none Sweets: Can only tolerate small amounts Meals per day: 3 ?? Feels full/satisfied after eating: yes ?? Feels hungry []never [x]sometimes -mid morning []most of the time [] always ?? Drinks with meals: discussed eating and drinking ?? Practices portion control: yes ?? Spends at least 20 minutes eating each meal: yes ?? Has had dumping syndrome: none ?? In the past month, pt has vomited/regurgitated: none ?? Constipation/Diarrhea: none Exercise: Increased walking, more time outside, restarting stationary bike. ASSESSMENT: Summary of Weight Loss: Tiffanie Monreal returns for routine follow-up at 4 yrs, 3 mo s/p surgery. Her excess weight loss is at 33%. Pt is tolerating the diet and is meeting protein and fluid goals. Pt reports doing more walking and more activity in afternoon, and restarted using Pelaton bike. Pt states she has been more aware of intake, has been meal planning/prepping. Reviewed supplements, pt is taking supplements as recommended. Encouraged increased exercise as tolerated. NUTRITION INTERVENTION & MONITORING: ?? Provided support/encouragement and reinforced importance of meeting nutritional goals. ?? Great work meeting protein and fluid goals ?? Continue to meal prep/plan ?? Try eating and drinking ?? Reviewed vitamin and mineral supplement recommendations. Multivitamin with minerals- continue Bariatric Multivitamin w/ iron Calcium citrate 500-600 mg with vitamin D twice daily. (2 pills twice per day or 1 chew twice daily) ?? Evaluation by nurse practitioner today. RTC in 4 mo for next BSP follow up visit, with labs. Call/rtc sooner prn with questions/concerns. documented in this encounter Plan of Treatment Upcoming Encounters Date Type Department Care Team (Late st Contact Info) Description 06/02/2024 8:00 AM EDT Office Visit [place] [phone] Julienne Lacey APRN [facility] [place] [address] 07/24/2024 1:30 PM EST Office Visit Weight [place] [phone] Jenni Brennan MD [facility] DR [facility] [address] Scheduled Referrals Name Type Priority Associated Diagnoses Orde r Schedule Referral to Plastic Surgery Outpatient Referral Routine Intertrigo Ordered: 12/31/2022 documented as of this encounter Results * Vitamin D, 25-Hydroxy (04/30/2023 9:43 AM EDT) Vitamin D Total 25 OH 28 21 - 100 ng/mL [facility] Vit D Interp Insufficient [facility] Blood 04/30/2023 9:43 AM EDT 04/30/2023 9:55 AM EDT Narrative Resulting Agency Comment Spec In Lab Luz E Menard REINFORCED STEEL PLACING SUPERVISOR CHEMISTRY ORDERABL ES [facility] [place] [address] * Ferritin (04/30/2023 9:43 AM EDT) Ferritin 21 15 - 150 ng/mL [facility] Comment: Pediatric reference ranges not verified at [facility], interpret with caution. Reference ranges for females greater than 50 years of age approach values for men, i.e., 30-400 ng/mL. Blood 04/30/2023 9:43 AM EDT 04/30/2023 9:55 AM EDT Narrative Resulting Agency Comment Spec In Lab Luz E Menard REINFORCED STEEL PLACING SUPERVISOR CHEMISTRY ORDERABL ES [facility] [place] [address] documented in this encounter Visit Diagnoses Diagnosis Intertrigo- Primary Other specified erythematous condition Post-resection malabsorption Other and unspecified postsurgical nonabsorption Status post bariatric surgery Bariatric surgery status documented in this encounter Care Teams Corn Detasseler Relationship Specialty Start Date End Date Saumya Felipe APRN [address] [place] [address] PCP - General Family Medicine 12/31/22 documented as of this encounter
--- OUTSIDE RECORDS SUMMARY | 2024-05-25 14:50 | XMS_ITS | Encounter Summary ---
Author Organization [facility] Address [facility] [place] [address] Care Team Providers Care Quality Project Manager Name Role Phone Kezia Aguirre MD Primary Care Provider [phone] Reason for Visit * Auth/Cert Specialty Diagnoses / Procedures Referred By Contesdras t Referred To Contact Diagnoses pannus Procedures PRO EXCISE EXCESS SKIN TISSUE, ABDOMEN PANNICULECTOMY Referral ID Status Reason Start Date Expiration Date Visits Re quested Visits Authorized [id number] 1 1 Encounter Details Date Type Department Care Team (Latest Contact Info) Description 01/03/2021 9:54 AM EDT - 01/04/2021 9:49 AM EDT Hospital Encounter [address] [place] [id number] Beau Torrez MD [facility] [place] [address] Abdominal pannus; Abdominal pannus Discharge Disposition: Home Social History Tobacco Use [...] Sign Reading Time Taken Comments Blood Pressure 106/62 01/04/2021 7:45 AM EDT Pulse 67 01/04/2021 3:27 AM EDT Temperature 37.1 ??C (98.8 ??F) 01/04/2021 7:45 AM ED T Respiratory Rate 16 01/04/2021 7:45 AM EDT Oxygen Saturation 97% 01/04/2021 7:45 AM EDT Inhaled Oxygen Concentration - - Weight 101.4 kg (223 lb 8 oz) 01/03/2021 11:20 A M EDT Height 167 cm (5' 5.75) 01/03/2021 11:20 AM EDT Body Mass Index 36.35 01/03/2021 11:20 AM EDT documented in this encounter Discharge Summaries * Toshia Knapp, WEIGHT LOSS PHYSICIAN - 01/04/2021 7:24 AM EDT Images from the original note were not included. Plastic Surgery Service Inpatient Discharge Summary Patient Name: Tiffanie Monreal Patient Age: 35 y.o. : 1985 Attending Physician: Beau Torrez MD Date of Admission: 01/03/2021 Date of Discharge: Code Status: 01/04/2021 Attempt Cardiopulmonary Resuscitation - Inpatient Primary Diagnosis: Active Hospital Problems Diagnosis ??? Abdominal pannus Resolved Hospital Problems No resolved problems to display. Secondary Diagnosis: None. Incidental Findings: None. History: History obtained through patient interview, review of relevant records, and/or discussion with referring provider. Tiffanie Monreal is a 35 y.o. female seen in my office today for consideration for abdominal panniculectomy. ?? Her maximum weight was 295 lbs in 2019. She now weighs 215 lbs. Goal weight is 200 lbs. She has lost weight after laparoscopic Shelbie-en-Y gastric bypass which was performed in 2019. She presents todaybecause of increasing difficulty with keeping the fold under her pannus free of rashes and infection, and clean, and odor free. She has tried over the counter creams and powders as well as prescription medication without success. Her pannus is causing her quite a bit of discomfort due to the excessskin. She has had 2 C-sections, lap gallbladder excision and hysterectomy Past Medical History Past Medical History: Diagnosis Date ??? Anxiety ??? Depression ??? Obesity Past Surgical History Past Surgical History: Procedure Laterality Date ??? SECTION, LOW TRANSVERSE 2003 ??? SECTION, LOW TRANSVERSE 2007 ??? CHOLECYSTECTOMY, LAPAROSCOPIC ??? HYSTERECTOMY ??? PRO LAP GASTRIC BYPASS/SHELBIE-EN-Y N/A 09/30/2018 @LAPAROSCOPIC GASTROPLASTY, (WRVU 29.4) performed by Jerica Dubose MD at [facility] OR ??? PRO UPPER GI ENDOSCOPY, DIAGNOSTIC N/A 09/30/2018 ENDOSCOPY, UPPER GI, DIAGNOSTIC, WITH OR WITHOUT SPECIMENS performed by Jerica Dubose MD at [facility] OR ??? PRO UPPER GI ENDOSCOPY, DIAGNOSTIC N/A 04/14/2020 EGD, UPPER GI ENDOSCOPY performed by Jerica Dubose MD at [facility] OR ??? TUBAL LIGATION Bilateral 2007 Procedures: 01/03/2021 Surgeon(s) and Role: * Beau Torrez MD - Primary * Beau Duvall MD - Resident: Procedure(s): PANNICULECTOMY Hospital Course: Tiffanie Monreal was admitted to the Plastic Surgery Service on 01/03/2021 after undergoing panniculectomy for symptomatic pannus. She tolerated the operation well and there were no apparent complications. She was admitted post-operatively for observation and management. Her hospital stay was uncomplicated. Tiffanie Monreal was tolerating regular diet, ambulating and voiding without difficulty, afebrile with stable vital signs, and her pain was well controlled on oral pain medications when she was deemed ready for discharge on 01/04/2021. Updated Allergies/ADRs: Allergies Allergen Reactions ??? Cough Syrup [Guaifenesin] Anaphylaxis ??? Spider Venom Other (See Comments) Ask patient. Pending Lab Data at Discharge: @DCLABS@ Condition at Discharge: Stable Important Studies and Lab Data: Labs: No results for input(s): WBC, HGB, HCT, PLATELET, PT, INR, PTT in the last 72 hours. No results for input(s): NA, K, CL, CO2, BUN, CREATININE, GLUCOSE, CALCIUM, MAGNESIUM, PHOS in the last 72 hours. Discharge Examination: Last value Range last 12 hrs Temperature Temp: 37.1 ??C (98.8 ??F) Temp: [36.7 ??C (98.1 ??F)-37.1 ??C (98.8 ??F)] Heart Rate Heart Rate: 67 Heart Rate: [67-69] Blood Pressure BP: 106/62 BP: (103-106)/(62-65) Respiratory Rate Resp: 16 Resp: [16] SpO2 SpO2: 97 % SpO2: [91 %-98 %] General: laying in bed in no acute distress. Neuro: Awake, alert, responds to questions appropriately, CN II-XII grossly intact, moving all fourextremities spontaneously. Pulm: Normal effort. Skin: warm, dry. Incision- prima pore dressing intact, umbilicus well perfused, JPx2 SSF Discharge to: home If discharged to rehab facility, name of facility: N/A. Discharge Medications: The following medications have been prescribed for you. If you notice any adverse reactions to your medications, please contact your primary care physician immediately or go tothe nearest Emergency Department. Your Medications New Medications Dose Details oxyCODONE 5 mg Tab Commonly known as: Roxicodone Take 1-2 tablets by mouth every 4 hours as needed for Pain (For pain 4-7 give 5mg, for pain 8-10 give 10mg). 5-10 mg Quantity: 10 tablet Refills: 0 Continued medications, unchanged Dose Details acetaminophen 500 mg Cap Take by mouth 2 times daily. Refills: 0 nystatin Powd Commonly known as: MYCOSTATIN Apply topically 4 times daily. To skin fold rash as needed Quantity: 60 g Refills: 0 UNABLE TO FIND 2 tablets daily. Med Name: Bariatric multivitamin 2 tablet Refills: 0 *Itffanie Liz Monreal is getting a prescription opioid for the treatment of acute post-operative pain related to the surgical procedure during this encounter. Pt has been advised to take the smallest dose possible to control pain and as the pain improves to take smaller doses and increase the time between doses. In addition to this medication, pt was educated on the non-opioid pain medications that canbe taken for adjunct treatment of pain. Non-pharmacological treatments were also discussed that include but not limited to ice, elevation, and activity modification as appropriate. The Acute Opioid Therapy Informed Consent form has been completed during this encounter and sent tomedical records for scanning to chart. Follow-up Care & Plans: To make an appointment or for questions about scheduling, please contact our administrative offices at [phone]. For clinical questions, please call our nurses at [phone]. Both offices are open Saturday thru Saturday 8a - 5p. With emergencies after hours, call the hospital stamping operator at [phone] and ask for the Plastic Surgery Resident supply and distribution manager. Scheduled Appointments: Future Appointments Date Time Provider Department Center 01/12/2021 3:00 PM Toshia Knapp, WEIGHT LOSS PHYSICIAN [facility] PLAS 4M [facility] Outpatient Services/Studies: No discharge procedures on file. Instructions Given to Patient at Discharge: Patient Instructions ABDOMINOPLASTY DISCHARGE INSTRUCTIONS WHAT TO EXPECT: During the first 1 to 3 weeks, expect to feel tired from the anesthesia and in general, due to the healing process. Altered sensation (such as shooting or burning pain) or numbness is common after surgery. Normal ornear normal sensation should return within a few months but some areas may stay numb permanently. Generalized abdominal swelling above the incision may last for several weeks to months due to tissue fluid build-up. WOUND AND DRAIN CARE: Keep dressing clean, dry, and intact. You may remove your dressings after 48 hours. After that you may leave them open to air. If you feel more comfortable with dressings under the binder, then you may replace them to suit your comfort needs. Do not use ice or heat on your surgical site. Your hospital nurse will review your drain care. You will learn how to strip, measure, and record the total amount of fluid from each drain. Call the clinic at [phone] and schedule an appointment with the nurses to have your drains removed when the drainage is 30cc or less in a 24 hour period for 2 days in a row. If present, nonabsorbable stitches are removed in 2 weeks. Spitting sutures: Occasionally an area of redness and tenderness develops where a dissolving stitchbecomes irritated and pushes to the surface. If this occurs, it is not an emergency. You may clip the stitch with a clean scissor or call for an appointment with a nurse. You must avoid sunlight exposure to your incision(s). No tanning on incision lines for at least 6 months to minimize scarring. Do not use any over the counter ointments on the incisions postoperatively unless instructed by your provider. SHOWERING: OK to shower two days after surgery and get incisions wet. Gently wash your incisions with soap andwater. Pat dry with a clean towel. Do not submerge your surgical site under water until your incision is completely healed, at least two weeks. MEDICATIONS: You should resume your home medications. You do not need any antibiotics. ACTIVITIES: Rest frequently during the day, and limit visitors until you feel more up to it. You will be provided with an abdominal binder. Wear your abdominal binder 24 hours a day for 4-6 weeks, removing it briefly to shower. To reduce the strain on your incision, you should remain in a flexed/recliner chair position for about 5 days - this may take longer in some instances so let your body be your guide. Do not lift more than 5 pounds for 6 weeks and no more than 10-20 pounds for 3 months. You will be able to return to work in 4-6 weeks. No strenuous exercise (tennis, aerobics, jogging) for 3 months. Feel free to walk as much as you want. Walking improves circulation, respiratory function and healing. You will not be able to drive for 2-3 weeks or while taking you pain medication. You may wear your safety belt if you place a small pillow over your abdominal incision. No sexual activity for 6 weeks. No smoking for at least 2 weeks following your surgery. DIET: Regular healthy diet. DO???S AND DON???TS FOR THE NEXT 6 WEEKS: Do not drive a motor vehicle for 1-2 weeks or until you can handle the steering wheel without discomfort. Do not drive while taking your narcotic. Do not smoke or be around anyone who smokes for 2 weeks after your surgery this is because smoking delays healing and can lead to infection. Do not lift more than 5 pounds for 6 weeks. Do not participate in strenuous activities such as running or aerobics for 6 weeks Do resume walking at a gentle pace. Protect your incisions from the sun for 6 months to 1 year. CALL MD IF: - Your incision opens up. - Your drain output suddenly increases or the color/consistency changes. - You have signs of infection such as: - temperature over 100.4F or 38C - redness or warmth spreading away from the incision lines after the first 48 hours - yellow pus-like or foul smelling drainage larger than dime size from the incisions or drainage sites - increased swelling or pain - You notice localized swelling this could be a collection of fluid under the skin at or near the incision site. During office hours: Saturday - Saturday 8am-5pm call [phone]. On weekends or after hours call [phone] and ask the stamping operator to page the plastic surgery resident supply and distribution manager. PAIN MEDICATION: You were given a prescription for a narcotic medication immediately following your surgery. Narcotics are prescribed for short-term use to help treat your pain. Surgical pain requiring narcotics willusually be greatly decreased 2-3 days after surgery & should be mild to absent by 10-14 days. We will prescribe a narcotic pain reliever for no longer than 1 week following your surgery. This will be determined by your surgeon. Narcotics do not reduce inflammation and it is inflammation that is usually a major cause of pain after surgery. Narcotics have many side effects such as constipation, lightheadedness, dizziness, sedation, confusion, nausea and vomiting. Driving and the use of alcohol are not recommended while you are using narcotic pain medications. Non-steroidal anti-inflammatories (NSAIDS) such as aspirin, Aleve and ibuprofen (Advil, Motrin) aremedications that reduce pain and inflammation. If you find your pain is not adequately controlled with the prescribed dose of your narcotic pain medication, NSAIDS may be used 48 hours after surgery with your narcotic to help alleviate the pain caused by inflammation. As you progress through your post-operative period, your pain should decrease and the use of narcotic medications should be less necessary. To reduce your chance of side effects, it is recommended that you save your narcotic medication for nighttime use and switch to NSAIDS or Acetaminophen (Tylenol) during the day. Alternative means of pain relief such as rest and relaxation, positioning, as well as decreasing stimulants such as coffee, tea, soft drinks, and nicotine may also help to alleviate pain. If you continue to experience significant pain 4-5 days after your procedure, it may be necessary to be re-evaluated by your physician. Prescription Renewals: Narcotic renewals may be requested from 8am-4pm Saturday through Saturday by calling the clinic. Due to patient safety, narcotic renewals will not be honored after hours or on weekends. It is best to make your request 2-3 days before you run out of your medication as it will takeat least 24 hours for physician approval and nurse follow-up. Note that certain prescriptions, suchas Percocet, Oxycodone, Vicodin, & Hydrocodone can not be called in to a pharmacy and must be picked up or mailed to you. If mailed to you, expect 2-5 business days prior to arrival. AMARILIS DRAIN CARE INSTRUCTIONS General Information: Drains help to keep fluid from collecting by removing the extra blood and fluid from under the skin. A drain is temporary. It stays in place until the drainage has slowed down or stopped. Your doctoror nurse will decide when each drain should be removed: This is usually after each drain has 30cc or less in 24 hours for 2 days in a row. When this happens, you should call the General Surgery Clinic to schedule an appointment with the nurses to have it/them removed. This is usually not painful and only takes a few seconds. How do I care for the drains at home? Pin your drains to your clothing by using a safety pin through the plastic loop on the top of the bulb. If the drain is not attached to your clothing, it may pull out from under your skin. Also, a drain usually feels more comfortable when it???s attached. To care for the drain at home, you will have to empty the drain, ???strip?? the drain tubing, and change the dressing if applicable. See the following pages for instructions on how to do this. What problems may I have with my drain? The bulb is not compressed- The bulb may not be squeezed tightly enough, the plug may not be closed securely, or the tube has slipped out a bit and is leaking. Follow the instructions on how to empty the drain. If the bulb remains expanded, then notify your doctor or nurse during business hours. ??? No drainage or sudden decrease in amount of drainage- This is usually due to clots in the drain. Follow the instructions on how to strip the drain tubing. ??? The tube accidentally falls out- If this happens, place a dry gauze dressing over the drain site and notify your doctor or nurse during business hours. ??? Increased redness, swelling, or heat around the tube insertion site- This may be a sign of infection. Take your temperature: if it is higher than 101F or 38.8C, call your doctor or nurse immediately. Otherwise, notify your doctor or nurse during business hours and keep the dressing clean and dry. Post-Surgical Drain Care: After surgery, you will have one or two drains, called a Everardo-Garcia (AMARILIS) drain, placed near the incision. This device collects fluid, under suction, from your surgical area. The drain promotes healing and recovery, and reduces the chance of infection. The drain will be in place until the drainage slows enough for your body to reabsorb fluid on its own. While you are hospitalized the nursing staff will care for the drain and teach you to continue to do so at home. How to Empty Your AMARILIS Drain Note: Wash your hands thoroughly before emptying your drain(s). 1. Have the plastic measuring cup from the hospital ready to collect and measure the drainage. Please measure the output at the same two times every 24 hours and record the amount. 2. Unpin the drain from your clothing. 3. 4. Open the top of the drain. Turn the drain upside down and squeeze the contents of the bulb into the measuring cup. Be sure to empty the bulb as completely as possible. Flush the contents in the toilet. 5. Use the drain output log chart to record the amount of drainage twice a day or any time the bulbis full. Record the total for 24 hours for each drain you have. 6. If you have more than one drain, remember to record the drainage from each drain separately. 7. To prevent infection, do not let the stopper or top of the bottle touch the measuring cup or anyother surface. 8. 9. Use one hand to squeeze all of the air from the drain. With the drain still squeezed, use your other hand to replace the top. This creates the suction necessary to remove the fluids from your body. 10. Pin the drain back on your clothing to avoid pulling it out accidently. 11. Wash your hands again. Remember to wash your hands before and after the procedure to reduce therisk of infection. Stripping the Tube Often the tube may become blocked with products of healing or clot. If you do not have drainage, then: ??? Hold the tube near where it is inserted in to the skin with your one hand. ??? Use the other hand to hold a pencil and gently squeeze the tubing with the pencil while moving it down toward the drain away from your skin. This forces the more sold material into the bulb for better drainage. ??? Repeat as necessary to start the draining again. Removal of the Tube ??? The tube may be removed once a single tube output is less than 30cc (1 oz.) for 24 hours. ??? Please call the office if the output becomes thicker or has a bad odor. Everardo-Garcia Drainage Record NAME: Date of Surgery: Date: Time: If more than one drain, which one: Drainage Amount (per drain) Total Amount (per drain; in 24 hours) CONTACT INFORMATION: During office hours (Saturday through Saturday 8 am to 5 pm): Call [phone]. On weekends or after hours: Call [phone] and ask the stamping operator to speak to the Plastic Surgery Resident on-call. FOLLOW-UP APPOINTMENTS: Please call [phone] if you have not received a phone call or letter with your appointment in atimely fashion. Your follow-up has been scheduled: Future Appointments Date Time Provider Department Center 01/12/2021 3:00 PM Toshia Knapp APRN [facility] PLAS 4M [facility] General Instructions None Future Appointments and Orders Future Appointments and Orders Future Appointments Provider Department Dept Phone 01/12/2021 3:00 PM Toshia Knapp APRN Plastic Surgery at [facility] Arrive at: Herpetologist Area 4M [phone] Call your doctor if: Please call your doctor immediately or go to an Emergency Department if you notice worsening pain not controlled by pain medications, uncontrolled headache, vision changes, chest pain, difficulty breathing, persistent nausea and vomiting, new redness or swelling in any extremities, new onset weakness or changes in sensation, or for any fevers greater than 100.4 or 38 F. Signed: Toshia Knapp APRN 01/04/2021 Plastic Surgery Nursing Orders: - drains per protocol documented in this encounter Discharge Instructions * Patient Instructions* Toshia Knapp APRN - 01/04/2021 7:21 AM EDT Images from the original note were not included. ABDOMINOPLASTY DISCHARGE INSTRUCTIONS WHAT TO EXPECT: During the first 1 to 3 weeks, expect to feel tired from the anesthesia and in general, due to the healing process. Altered sensation (such as shooting or burning pain) or numbness is common after surgery. Normal ornear normal sensation should return within a few months but some areas may stay numb permanently. Generalized abdominal swelling above the incision may last for several weeks to months due to tissue fluid build-up. WOUND AND DRAIN CARE: Keep dressing clean, dry, and intact. You may remove your dressings after 48 hours. After that you may leave them open to air. If you feel more comfortable with dressings under the binder, then you may replace them to suit your comfort needs. Do not use ice or heat on your surgical site. Your hospital nurse will review your drain care. You will learn how to strip, measure, and record the total amount of fluid from each drain. Call the clinic at [phone] and schedule an appointment with the nurses to have your drains removed when the drainage is 30cc or less in a 24 hour period for 2 days in a row. If present, nonabsorbable stitches are removed in 2 weeks. Spitting sutures: Occasionally an area of redness and tenderness develops where a dissolving stitchbecomes irritated and pushes to the surface. If this occurs, it is not an emergency. You may clip the stitch with a clean scissor or call for an appointment with a nurse. You must avoid sunlight exposure to your incision(s). No tanning on incision lines for at least 6 months to minimize scarring. Do not use any over the counter ointments on the incisions postoperatively unless instructed by your provider. SHOWERING: OK to shower two days after surgery and get incisions wet. Gently wash your incisions with soap andwater. Pat dry with a clean towel. Do not submerge your surgical site under water until your incision is completely healed, at least two weeks. MEDICATIONS: You should resume your home medications. You do not need any antibiotics. ACTIVITIES: Rest frequently during the day, and limit visitors until you feel more up to it. You will be provided with an abdominal binder. Wear your abdominal binder 24 hours a day for 4-6 weeks, removing it briefly to shower. To reduce the strain on your incision, you should remain in a flexed/recliner chair position for about 5 days - this may take longer in some instances so let your body be your guide. Do not lift more than 5 pounds for 6 weeks and no more than 10-20 pounds for 3 months. You will be able to return to work in 4-6 weeks. No strenuous exercise (tennis, aerobics, jogging) for 3 months. Feel free to walk as much as you want. Walking improves circulation, respiratory function and healing. You will not be able to drive for 2-3 weeks or while taking you pain medication. You may wear your safety belt if you place a small pillow over your abdominal incision. No sexual activity for 6 weeks. No smoking for at least 2 weeks following your surgery. DIET: Regular healthy diet. DO???S AND DON???TS FOR THE NEXT 6 WEEKS: Do not drive a motor vehicle for 1-2 weeks or until you can handle the steering wheel without discomfort. Do not drive while taking your narcotic. Do not smoke or be around anyone who smokes for 2 weeks after your surgery this is because smoking delays healing and can lead to infection. Do not lift more than 5 pounds for 6 weeks. Do not participate in strenuous activities such as running or aerobics for 6 weeks Do resume walking at a gentle pace. Protect your incisions from the sun for 6 months to 1 year. CALL MD IF: - Your incision opens up. - Your drain output suddenly increases or the color/consistency changes. - You have signs of infection such as: - temperature over 100.4F or 38C - redness or warmth spreading away from the incision lines after the first 48 hours - yellow pus-like or foul smelling drainage larger than dime size from the incisions or drainage sites - increased swelling or pain - You notice localized swelling this could be a collection of fluid under the skin at or near the incision site. During office hours: Saturday - Saturday 8am-5pm call [phone]. On weekends or after hours call [phone] and ask the stamping operator to page the plastic surgery resident supply and distribution manager. PAIN MEDICATION: You were given a prescription for a narcotic medication immediately following your surgery. Narcotics are prescribed for short-term use to help treat your pain. Surgical pain requiring narcotics willusually be greatly decreased 2-3 days after surgery & should be mild to absent by 10-14 days. We will prescribe a narcotic pain reliever for no longer than 1 week following your surgery. This will be determined by your surgeon. Narcotics do not reduce inflammation and it is inflammation that is usually a major cause of pain after surgery. Narcotics have many side effects such as constipation, lightheadedness, dizziness, sedation, confusion, nausea and vomiting. Driving and the use of alcohol are not recommended while you are using narcotic pain medications. Non-steroidal anti-inflammatories (NSAIDS) such as aspirin, Aleve and ibuprofen (Advil, Motrin) aremedications that reduce pain and inflammation. If you find your pain is not adequately controlled with the prescribed dose of your narcotic pain medication, NSAIDS may be used 48 hours after surgery with your narcotic to help alleviate the pain caused by inflammation. As you progress through your post-operative period, your pain should decrease and the use of narcotic medications should be less necessary. To reduce your chance of side effects, it is recommended that you save your narcotic medication for nighttime use and switch to NSAIDS or Acetaminophen (Tylenol) during the day. Alternative means of pain relief such as rest and relaxation, positioning, as well as decreasing stimulants such as coffee, tea, soft drinks, and nicotine may also help to alleviate pain. If you continue to experience significant pain 4-5 days after your procedure, it may be necessary to be re-evaluated by your physician. Prescription Renewals: Narcotic renewals may be requested from 8am-4pm Saturday through Saturday by calling the clinic. Due to patient safety, narcotic renewals will not be honored after hours or on weekends. It is best to make your request 2-3 days before you run out of your medication as it will takeat least 24 hours for physician approval and nurse follow-up. Note that certain prescriptions, suchas Percocet, Oxycodone, Vicodin, & Hydrocodone can not be called in to a pharmacy and must be picked up or mailed to you. If mailed to you, expect 2-5 business days prior to arrival. AMARILIS DRAIN CARE INSTRUCTIONS General Information: Drains help to keep fluid from collecting by removing the extra blood and fluid from under the skin. A drain is temporary. It stays in place until the drainage has slowed down or stopped. Your doctoror nurse will decide when each drain should be removed: This is usually after each drain has 30cc or less in 24 hours for 2 days in a row. When this happens, you should call the General Surgery Clinic to schedule an appointment with the nurses to have it/them removed. This is usually not painful and only takes a few seconds. How do I care for the drains at home? Pin your drains to your clothing by using a safety pin through the plastic loop on the top of the bulb. If the drain is not attached to your clothing, it may pull out from under your skin. Also, a drain usually feels more comfortable when it???s attached. To care for the drain at home, you will have to empty the drain, ???strip?? the drain tubing, and change the dressing if applicable. See the following pages for instructions on how to do this. What problems may I have with my drain? The bulb is not compressed- The bulb may not be squeezed tightly enough, the plug may not be closed securely, or the tube has slipped out a bit and is leaking. Follow the instructions on how to empty the drain. If the bulb remains expanded, then notify your doctor or nurse during business hours. ??? No drainage or sudden decrease in amount of drainage- This is usually due to clots in the drain. Follow the instructions on how to strip the drain tubing. ??? The tube accidentally falls out- If this happens, place a dry gauze dressing over the drain site and notify your doctor or nurse during business hours. ??? Increased redness, swelling, or heat around the tube insertion site- This may be a sign of infection. Take your temperature: if it is higher than 101F or 38.8C, call your doctor or nurse immediately. Otherwise, notify your doctor or nurse during business hours and keep the dressing clean and dry. Post-Surgical Drain Care: After surgery, you will have one or two drains, called a Everardo-Garcia (AMARILIS) drain, placed near the incision. This device collects fluid, under suction, from your surgical area. The drain promotes healing and recovery, and reduces the chance of infection. The drain will be in place until the drainage slows enough for your body to reabsorb fluid on its own. While you are hospitalized the nursing staff will care for the drain and teach you to continue to do so at home. How to Empty Your AMARILIS Drain Note: Wash your hands thoroughly before emptying your drain(s). 1. Have the plastic measuring cup from the hospital ready to collect and measure the drainage. Please measure the output at the same two times every 24 hours and record the amount. 2. Unpin the drain from your clothing. 3. 4. Open the top of the drain. Turn the drain upside down and squeeze the contents of the bulb into the measuring cup. Be sure to empty the bulb as completely as possible. Flush the contents in the toilet. 5. Use the drain output log chart to record the amount of drainage twice a day or any time the bulbis full. Record the total for 24 hours for each drain you have. 6. If you have more than one drain, remember to record the drainage from each drain separately. 7. To prevent infection, do not let the stopper or top of the bottle touch the measuring cup or anyother surface. 8. 9. Use one hand to squeeze all of the air from the drain. With the drain still squeezed, use your other hand to replace the top. This creates the suction necessary to remove the fluids from your body. 10. Pin the drain back on your clothing to avoid pulling it out accidently. 11. Wash your hands again. Remember to wash your hands before and after the procedure to reduce therisk of infection. Stripping the Tube Often the tube may become blocked with products of healing or clot. If you do not have drainage, then: ??? Hold the tube near where it is inserted in to the skin with your one hand. ??? Use the other hand to hold a pencil and gently squeeze the tubing with the pencil while moving it down toward the drain away from your skin. This forces the more sold material into the bulb for better drainage. ??? Repeat as necessary to start the draining again. Removal of the Tube ??? The tube may be removed once a single tube output is less than 30cc (1 oz.) for 24 hours. ??? Please call the office if the output becomes thicker or has a bad odor. Everardo-Garcia Drainage Record NAME: Date of Surgery: Date: Time: If more than one drain, which one: Drainage Amount (per drain) Total Amount (per drain; in 24 hours) CONTACT INFORMATION: During office hours (Saturday through Saturday 8 am to 5 pm): Call [phone]. On weekends or after hours: Call [phone] and ask the stamping operator to speak to the Plastic Surgery Resident on-call. FOLLOW-UP APPOINTMENTS: Please call [phone] if you have not received a phone call or letter with your appointment in atimely fashion. Your follow-up has been scheduled: Future Appointments Date Time Provider Department Center 01/12/2021 3:00 PM Toshia Knapp APRN [facility] PLAS [address] [place] [address] documented in this encounter Medications at Time of Discharge Medication Sig Dispensed Refills Start Date End Date UNABLE TO FIND 2 tablets daily. Med Name: Bariatric multivitamin acetaminophen 500 mg Capsule Take by mouth 2 times daily. oxyCODONE (Roxicodone) 5 mg Tablet Take 1-2 tablets by mouth every 4 hours as needed for Pain (For pain 4-7 give 5mg, for pain 8-10 give 10mg). 10 tablet 01/04/2021 07/04/2021 nystatin (MYCOSTATIN) PowderIndications:Int ertrigo Apply topically 4 times daily. To skin fold rash as needed 60 g 10/24/2018 02/14/2023 documented as of this encounter Progress Notes * Leidy Watts MD - 01/03/2021 8:51 PM EDT Plastic Surgery Post Op Check Patient ID: Tiffanie Monreal is a 35 y.o. female Procedure(s): PANNICULECTOMY Subjective: No nausea/vomiting, chest pain, SOB, pain well controlled, offers no complaints. Eager to get OOB and ambulate. Drains with 60 SS op so far. Objective: Temp: [36.6 ??C (97.9 ??F)-37.2 ??C (99 ??F)] Heart Rate: [59-74] Resp: [12-17] BP: (103-125)/(60-69) SpO2: [91 %-100 %] Heart Rate from SpO2: -- I/O this shift: In: - Out: 660 [Urine:600; Other:60] Physical Exam General: resting comfortably, no acute distress HEENT: normocephalic, atraumatic CVS: regular rate Pulm: non-labored breathing Abd: soft, non tender, non distended Neuro: no focal deficits, moving all extremities Incision: c/d/i, no evidence of hematoma; binder in place, flexed to 30deg on bed. 2 AMARILIS drains withSS output (50 on L, 10 on R) Assessment/Plan: Tiffanie Monreal is a 35 y.o. female s/p panniculectomy currently in stable condition and recovering well. - pain well controlled - hemodynamically stable - UOP adequate (600cc) Leidy Watts MD Pager: [phone] * Crissy Palm RN - 01/03/2021 4:44 PM EDT 1609- Pt rec'd in PACU from OR. Abd binder in place. * Sanna Ag RN - 01/03/2021 11:34 AM EDT Images from the original note were not included. Patient Name: Tiffanie Monreal Patient Age: 35 y.o. Birthdate: 1985 Admit date: 01/03/2021 Attending Physician: Beau Torrez MD Skin: documented in this encounter H&P Notes * Beau Duvall MD - 01/03/2021 1:03 PM EDT Patient Name: Tiffanie Monreal Patient Age: 35 y.o. Birthdate: 1985 Admit date: 01/03/2021 Attending Physician: Beau Torrez MD Plastic Surgery Preoperative H&P: Patient Name: Tiffanie Monreal Patient : 1985 Today's Date: 01/03/2021 Tiffanie Monreal is a 35 y.o. female with symptomatic pannus who presents today for panniculectomy. No changes since last seen. Past Medical History: Diagnosis Date ??? Anxiety ??? Depression ??? Obesity Past Surgical History: Procedure Laterality Date ??? SECTION, LOW TRANSVERSE 2003 ??? SECTION, LOW TRANSVERSE 2007 ??? CHOLECYSTECTOMY, LAPAROSCOPIC ??? HYSTERECTOMY ??? PRO LAP GASTRIC BYPASS/SHELBIE-EN-Y N/A 09/30/2018 @LAPAROSCOPIC GASTROPLASTY, (WRVU 29.4) performed by Jerica Dubose MD at [facility] OR ??? PRO UPPER GI ENDOSCOPY, DIAGNOSTIC N/A 09/30/2018 ENDOSCOPY, UPPER GI, DIAGNOSTIC, WITH OR WITHOUT SPECIMENS performed by Jerica Dubose MD at [facility] OR ??? PRO UPPER GI ENDOSCOPY, DIAGNOSTIC N/A 04/14/2020 EGD, UPPER GI ENDOSCOPY performed by Jerica Dubose MD at [facility] OR ??? TUBAL LIGATION Bilateral 2007 Family History Problem Relation Age of Onset ??? Obesity Father at 58 ??? Heart Disease Father ??? Obesity Mother ??? Sleep Apnea Mother ??? Diabetes Mother ??? Obesity Sister s/p gastric bypass ??? Heart Disease Paternal Grandfather ??? Heart Disease Paternal Grandmother Social History Socioeconomic History ??? Marital status: Single Spouse name: Not on file ??? Number of children: Not on file ??? Years of education: Not on file ??? Highest education level: Not on file Occupational History ??? Not on file Tobacco Use ??? Smoking status: Former Smoker Packs/day: 0.50 Years: 2.00 Pack years: 1.00 Types: Cigarettes Quit date: 03/27/2008 Years since quittin.7 ??? Smokeless tobacco: Never Used Substance and Sexual Activity ??? Alcohol use: Yes Alcohol/week: 0.0 standard drinks Comment: once per month ??? Drug use: No ??? Sexual activity: Not on file Other Topics Concern ??? Exercise: Patient reported Yes ??? Abuse or Threat: Physical, Sexual, Verbal No Social History Narrative ??? Not on file Social Determinants of Health Financial Resource Strain: ??? Difficulty of Paying Living Expenses: Food Insecurity: ??? Worried About Running Out of Food in the Last Year: ??? Ran Out of Food in the Last Year: Transportation Needs: ??? Lack of Transportation (Medical): ??? Lack of Transportation (Non-Medical): Physical Activity: ??? Days of Exercise per Week: ??? Minutes of Exercise per Session: Allergies Allergen Reactions ??? Cough Syrup [Guaifenesin] Anaphylaxis ??? Spider Venom Other (See Comments) Ask patient. Review of systems: As per HPI, otherwise non-contributory. Exam: General: NAD Resp: CTAB CV: normal rate, regular rhythm A/P: Tiffanie Monreal is a 35 y.o. female with symptomatic pannus who presents today for panniculectomy. No changes since last seen. - Proceed to OR. The risks, benefits and indications were reviewed with the patient and there remains an indication for surgery. Consent signed. - Preoperative abx ordered - Surgical site marked Beau Duvall MD Plastic Surgery Resident documented in this encounter Miscellaneous Notes * Plan of Care - Joe Ferreira RN - 01/04/2021 9:46 AM EDT OUTCOME EVALUATION NOTE: OUTCOME SUMMARY: Pt alert + oriented x4. VSS. Oxycodone PRN given x1 for mild pain at incision site. Abdominal binder in place. Pt denies any other symptoms. D/C orders received. PIV removed. AVS revised with patientand questions answered. AMARILIS drains x1 in place and pt demonstrated proper technique to empty them. Output is sanguineous. Pt gone home with . * Plan of Care - Armida Zapien RN - 01/04/2021 2:14 AM EDT OUTCOME EVALUATION NOTE: OUTCOME SUMMARY: Pt in for panniculectomy. VSS on RA. PRN oxy 10mg given for 8/10 pain in abdomen. Pt reported pain reduced to 5/10 and tolerable. No other interventions needed. Assumed care of pt around 2100. Pt oriented to room and educated supply and distribution manager carrasquillo usage and fall prevention protocols. Abdominal binder kept on at all times. HOB kept at 30 degrees. Pt ambulated around floor x2. Incision dressing assessed. Dressing CDI. AMARILIS drains emptied per protocol. L has greater output thanR. Pt bladder scanned per protocol. Covid swab obtained - see results for details Pt resting between care. PLAN MOVING FORWARD: Monitor VS and labs Manage pain Empty drains q4hrs Bladder scan q4 when not voiding appropriately Keep abdominal binder on HOB at 30 degrees INDIVIDUALIZED FALL PREVENTION INTERVENTIONS: Patient-specific fall risk factors per assessment: [current deficits]: Hospital environment, IV access, pain in abdomen Assistance [level of assistance required for transfers and ambulation]: SBA with walker Supervision [direct monitoring required during toileting and ADLs]: Eyes on Surveillance [continuous indirect monitoring]: Masimo, bed alarm set, call carrasquillo in reach, purposeful rounding, room near nursing station Patient-specific fall prevention interventions for sensory deficits provided, if applicable: [X] N/A CPG GOAL OUTCOME EVALUATION: * Brief Op Note - Beau Duvall MD - 01/03/2021 4:16 PM EDT Brief Operative Note Patient Name: Tiffanie Monreal : [id number] MR#: [id number] Case Date: 01/03/2021 Surgeon: Surgeon(s) and Role: * Beau Torrez MD - Primary * Beau Duvall MD - Resident Preoperative diagnosis: pannus Postoperative diagnosis: pannus Procedure(s) (LRB): PANNICULECTOMY (N/A) Anesthesia: General Findings: Panniculectomy Complications: None Estimated Blood Loss: 200 mL Specimens removed during surgery: None Fluids: Intraprocedure Crystalloid Total Intake Lactated Ringers 1000.00 mL Total Intake 1000 mL Output Blood Loss 200 mL Total Output 200 mL Net Net Volume 800 mL PRBCs: none (See Anesthesia Record/Report for Other Blood Products) Urine Output: (no urine output recorded) Drains: #19F round drains x2 Disposition: awakened from anesthesia, extubated and taken to the recovery room in a stable condition, having suffered no apparent untoward event. Condition: doing well without problems (Please see the Surgical Encounter Summary for any Implant and Specimen details pertinent to this patient.) Infection Bundle used? No Post-Op Plan: - Follow up in: 01/12/21 with STEFANIE - Wound Check - Suture removal: None - Dressings: remove dressings - Drain removal when output is less than 30 ml per day x 2 days - Other coordinating appointments needed: 3-6 months with attending Future Appointments Date Time Provider Department Center 01/12/2021 3:00 PM Toshia Knapp APRN [facility] 4M [facility] * Op Note - Beau Torrez MD - 01/03/2021 1:52 PM EDT [facility] Operative Note Patient Name: Tiffanie Monreal : [id number] MR#: [id number] Case Date: 01/03/2021 Surgeon: Surgeon(s) and Role: * Beau Torrez MD - Primary * Beau Duvall MD - Resident Preoperative diagnosis: pannus Postoperative diagnosis: pannus Procedure(s) (LRB): PANNICULECTOMY (N/A) Findings: Panniculectomy Anesthesia: General Estimated Blood Loss: 200 mL Specimens removed during surgery: None Drains: #19F round drains x2 Surgical Closure: Primary Closure - skin incision [...] patient.) HPI/Surgical Indications: Tiffanie Monreal is a 35 y.o. female with symptomatic pannus. Procedure Description: Risks, benefits, alternatives of abdominal panniculectomy were discussed with the patient and informed consent obtained. She desired to proceed. She was subsequently taken back to the operating room,placed supine on the operating table, and a general anesthetic was induced. The abdomen was preppedand draped into the field in the normal sterile fashion. 10cc on 1% lidocaine with epinephrine was infiltrated at the planned umbilicus incision and a circumumbilical incision was made and dissected down the stalk using scissors. A long transverse incision approximately 7 cm superior to the vaginalcleft was then made extending along the lower abdominal panniculus. The panniculus was undermined up to the umbilicus and then split in the midline to the umbilicus and the circumumbilical incision was completed by dissecting the stalk down to the rectus fascia. The remainder of the panniculus was then undermined just above the level of the rectus fascia until it was adequately mobilized to the crocker praumbilical tissue to meet the lower incision line. Excess tissue was excised. Hemostasis was obtained with electrocautery and/or vascular clips when appropriate. Two #19F round drains were placed, 1 on the right and left coming to the level of the midline. A new umbilical opening just above the level of the ASIS was made in a Y fashion. A 4-0 vicryl was then used to tack the superior aspect of the ubilicus down to the fascia to create hooding. The abdominal flap was sutured utilizing deep 3-0Vicryl for the Joselito's layer and deep dermal layer followed by running subcuticular 4-0 Vicryl forfine approximation of the skin edge. Drains were secured with 0 Prolene. The umbilicus was inset inthe midline at the appropriate level with 4-0 Vicryl deep dermal sutures, and 5-0 chromic superficial sutures. At the end of the case the umbilicus and skin flaps are warm pink and viable. There was no bleeding from the incision lines. Primapore dressings and drain sponges were placed. She was subsequently awakened extubated and transferred over to the OR stretcher where an abdominal binder was placed. She was delivered to PACU in stable condition. Infection Bundle used? No Attestation: Case Date: 01/03/2021 I was present and I participated during the entire procedure (does not need to include opening and closing). Beau Torrez MD 01/03/2021 documented in this encounter Plan of Treatment Upcoming Encounters Date Type Department Care Team (Late st Contact Info) Description 06/02/2024 8:00 AM EDT Office [place] [id number] Julienne Lacey APRN [facility] [place] [address] 07/24/2024 1:30 PM EST Office Visit Weight [place] [phone] Jenni Brennan MD [facility] [address] [facility] [place], [place] [id number] documented as of this encounter Procedures Procedure Name Priority Date/Time Associated Diagnosis Comments RAPID COVID-19 PCR ([facility]/APD/NL) Routine 01/03/2021 10:27 PM EDT PANNICULECTOMY (WRVU 17.11) 01/03/2021 1:29 PM EDT Abdominal pannus PANNICULECTOMY Routine 01/03/2021 10:04 AM EDT Abdominal pannus documented in this encounter Results * COVID-19 PCR (01/03/2021 10:27 PM EDT) SARS-CoV-2 RNA (Rapid) Not Detected Not Detected [facility] Comment: This result should be interpreted in combination with the clinical observations, patient history and epidemiological information. For testing of asymptomatic individuals, assay performance characteristics and clinical utility have not been evaluated. Testing for SARS-CoV-2 (Severe acute respiratory syndrome coronavirus 2, formerly known as 2019 novel coronavirus or 2019-nCoV) to aid in the diagnosis of COVID-19 is performed using the Simplexa COVID-19 Direct Assay by [employer] as authorized by the FDA issued Emergency Use Authorization (EUA). This assay is intended for In-vitro Diagnostic (IVD) use with nasopharyngeal swabs collected from individuals meeting the CDC criteria for testing. The assay is performed based on the instructions for use and additional guidance provided by the FDA. Testing is performed in the Microbiology Laboratory within the Department of Pathology and Laboratory Medicine at [facility], certified under the Clinical Laboratory Improvement Amendments of 1988 (CLIA), 42 U.S.C. section 263a, to perform high complexity tests. Assay performance has been verified according to clinical laboratory regulatory requirements. Test results are provided above. A result of Not Detected indicates that the viral RNA target is not present but does not preclude SARS-CoV-2 infection. False negative results may occur if a specimen is improperly collected, transported or handled; if amplification inhibitors are present; or if inadequate numbers of viral particles are present in the specimen. A result of Detected suggests a current or recent infection and the patient is presumed to be infected. Positive and negative predictive values for this test are highly dependent on disease prevalence. A result of Invalid indicates the inability to conclusively determine the presence or absence of SARS-CoV-2 RNA in the sample which can be due to a variety of factors. Recollection is recommended in the case of an invalid result. CDC COVID-19 criteria for testing on human specimens and clinical management guidance information are available at the CDC Coronavirus Disease 2019 (COVID-19) webpage under Information for Healthcare Professionals (https://www.cdc.gov/coronavirus/2019-ncov/hcp/index.html). Additional information about this and other EUA tests can be found in provider and patient fact sheets at the following FDA website: https://www.fda.gov/medical-devices/yahcxsaevdi-pmpnszk-7793-ujrcz-84-gkxkqoecp- use-a jdzzwmtqqhkbe-urcrfzy-jdgqzza/kgajw-atgfvbxnsuo-aegy SARS-CoV-2 Source [employer] Swab [facility] Nasopharyngeal Swab 01/04/20 10:27 PM EDT 01/03/2021 11:04 PM EDT Comment:Symptoms->Surveillan ce Narrative Resulting Agency Comment Spec In Lab Beau Torrez MD [facility]BIOLOGY - [facility] ORDERABLES [facility] [place] [address] documented in this encounter Visit Diagnoses Diagnosis Abdominal pannus- Primary Localized adiposity documented in this encounter Admitting Diagnoses Diagnosis Abdominal pannus Localized adiposity documented in this encounter Administered Medications Inactive Administered Medications - up to 3 most recent administrations Medication Order MAR Action Action Date Dose Rate Site acetaminophen (Tylenol) tablet 1,000 mg 1,000 mg, Oral, EVERY 8 HOURS SCHEDULED, First dose on Sat01/03/21 at 1900, Until Discontinued, Maximum dose of acetaminophen is 4000 mg from all sources in 24 hours. When ordered for pain, acetaminophen should be given even when other ordered pain medications are indicated., Routine Given 01/04/2021 3:10 AM EDT 1,000 mg Given 01/03/2021 6:39 PM EDT 1,000 mg acetaminophen (Tylenol) tablet 975 mg 975 mg, Oral, ONCE, 1 dose, On Sat01/03/21 at 1130, Maximum dose of acetaminophen is 4000 mg from all sources in 24 hours. When ordered for pain, acetaminophen should be given even when other ordered pain medications are indicated. , Day of Surgery (Day of Procedure), Routine Given 01/03/2021 11:16 AM EDT 975 mg docusate sodium (Colace) capsule 100 mg 100 mg, Oral, 2 TIMES DAILY, First dose on Sat01/03/21 at 2245, Until Discontinued, Routine Given 01/04/2021 8:18 AM EDT 100 mg Given 01/03/2021 10:22 PM EDT 100 mg oxyCODONE (Roxicodone) tablet 5-10 mg 5-10 mg, Oral, EVERY 4 HOURS PRN, Starting on Sat01/03/21 at 1639, Until Sat01/04/21 at 1155, Pain, For pain 4-7 give 5mg, for pain 8-10 give 10mg, Routine Given 01/04/2021 8:18 AM EDT 5 mg Given 01/03/2021 11:35 PM EDT 10 mg Given 01/03/2021 6:40 PM EDT 10 mg sodium chloride 0.9 % (flush) flush 5 mL 5 mL, Intravenous, 2 TIMES DAILY, First dose on Sat01/03/21 at 2245, Until Discontinued, Recovery (Recovery-Hospital Unit), Routine Given 01/04/2021 8:18 AM EDT 5 mLs Given 01/03/2021 10:22 PM EDT 5 mLs documented in this encounter Active and Recently Administered Medications Times are shown in EDT. Scheduled Medication Order 01/02/2021 01/03/2021 01/04/2021 acetaminophen (Tylenol) tablet 1,000 mg 1,000 mg, Oral, EVERY 8 HOURS SCHEDULED, First dose on Sat01/03/21 at 1900, Until Discontinued, Maximum dose of acetaminophen is 4000 mg from all sources in 24 hours. When ordered for pain, acetaminophen should be given even when other ordered pain medications are indicated., Routine 1839 (Given - Provider: Crissy Palm RN) 0310 (Given - Provider: Armida Zapien, JUVE) acetaminophen (Tylenol) tablet 975 mg (COMPLETED) 975 mg, Oral, ONCE, 1 dose, On Sat01/03/21 at 1130, Maximum dose of acetaminophen is 4000 mg from all sources in 24 hours. When ordered for pain, acetaminophen should be given even when other ordered pain medications are indicated. , Day of Surgery (Day of Procedure), Routine 1116 (Given - Provider: Sanna Ag RN) docusate sodium (Colace) capsule 100 mg 100 mg, Oral, 2 TIMES DAILY, First dose on Sat01/03/21 at 2245, Until Discontinued, Routine 2221 (Given - Provider: Armida Zapien RN) 0818 (Given - Provider: Joe Ferreira, JUVE) sodium chloride 0.9 % (flush) flush 5 mL 5 mL, Intravenous, 2 TIMES DAILY, First dose on Sat01/03/21 at 2245, Until Discontinued, Recovery (Recovery-Hospital Unit), Routine 222 (Given - Provider: Armida Zapien RN) 0818 (Given - Provider: Joe Ferreira, JUVE) PRN Medication Order 01/02/2021 01/03/2021 01/04/2021 bisacodyL (Dulcolax) suppository 10 mg 10 mg, Rectal, DAILY PRN, Starting on Sat01/03/21 at 2156, Until Sat01/04/21 at 1155, Constipation, Administer if needed per patient's routine or if no bowel movement within 48 hours to achieve: (1) One bowel movement at least every 48 hours, AND (2) Without straining. - If multiple PRN bowel medications ordered, start with magnesium hydroxide, then bisacodyl. - Multiple medications may be given concomitantly for constipation., Routine lidocaine (Xylocaine) 1% (10 mg/mL) injection 3 mg 3 mg (0.3 mL), Subcutaneous, ONCE PRN, 1 dose, Starting on Sat01/03/21 at 2156, Until Sat01/04/21 at 1155, for discomfort with PIV insertion, Recovery (Recovery-Hospital Unit), Routine lidocaine-EPINEPHrine (1% - 1:100,000) injection (CANCELED) ONCE PRN, Starting on Sat01/03/21 at 1358, Until Sat01/04/21 at 1155, Intra-Operative (Intra-Procedure), Routine 1358 (Given - Provider: Beau Torrez MD) oxyCODONE (Roxicodone) tablet 5-10 mg 5-10 mg, Oral, EVERY 4 HOURS PRN, Starting on Sat01/03/21 at 1639, Until Sat01/04/21 at 1155, Pain, For pain 4-7 give 5mg, for pain 8-10 give 10mg, Routine 1840 (Given - Provider: Crissy Palm, RN)2335 (Given - Provider: Armida Zapien, RN) 0818 (Given - Provider: Joe Ferreira, JUVE) sodium chloride 0.9 % (flush) flush 5-20 mL 5-20 mL, Intravenous, EVERY 1 MIN PRN, Starting on Sat01/03/21 at 2156, Until Sat01/04/21 at 1155, flush, Flush pertains to all indwelling lines. Flush per protocol found in the job aid using the link provided on this medication record., Recovery (Recovery-Hospital Unit), Routine documented in this encounter Care Teams Quality Project Manager Relationship Specialty Start Date End Date Kezia Aguirre MD [address] [place] [address] PCP - General Family Medicine 12/24/16 12/30/22 documented as of this encounter
--- OUTSIDE RECORDS SUMMARY | 2024-05-25 14:50 | XMS_ITS | Encounter Summary ---
Author Organization [facility] [place] [address] Care Team Providers Care Protection Chief Industrial Plant Name Role Phone Kezia Aguirre MD Primary Care Provider [phone] Encounter Details Date Type Department Care Team (Late st Contact Info) Description 11/09/2020 Telephone [place] [address] Casandra Alvarenga Social History Tobacco Use Types Packs/Day Years Used Date Smoking Tobacco: Former Cigarettes 0.5 2 0 03/27/2006 - 03/27/2008 Smokeless Tobacco: Never Alcohol Use Standard Drinks/Week Comments Yes 0 (1 standard drink = 0.6 oz pur e alcohol) Sex and Gender Information Value Date Recorded Sex Assigned at Not on file Gender Identity Not on file Sexual Orientation Not on file documented as of this encounter Miscellaneous Notes * Telephone Encounter - Casandra Alvarenga - 11/09/2020 9:33 AM EDTSummary: Referral to Plastic Surgery Left Tiffanie a message that the referral to plastic surgery for the pannus removal per her request has been entered and if she doesn't hear from them within a week to give them a call. documented in this encounter Plan of Treatment Upcoming Encounters Date Type Department Care Team (Late st Contact Info) Description 06/02/2024 8:00 AM EDT Office [place] [address] Julienne Lacey APRN [facility] [place] [address] 07/24/2024 1:30 PM EST Office Visit [place] [address] Jenni Brennan MD [facility] [address] [facility] [address] documented as of this encounter Visit Diagnoses Not on filedocumented in this encounter Care Teams Protection Chief Industrial Plant Relationship Specialty Start Date End Date Kezia Aguirre MD [address] [place] [address] PCP - General Family Medicine 12/24/16 12/30/22 documented as of this encounter
--- OUTSIDE RECORDS SUMMARY | 2024-05-25 14:50 | XMS_ITS | Encounter Summary ---
Author Organization [facility] [place] [address] Care Team Providers Care Director Strategy Name Role Phone Matteo Saumya JANE Primary Care Provider Encounter Details Date Type Department Care Team (Latest Contact Info) Description 04/11/2023 1:45 PM EDT TH Visit (TeleHealth) [place] [address] Beau Torrez MD [facility] [place] [address] Excessive skin and subcutaneous tissue Social History Tobacco Use Types Packs/Day Years [...] as of this encounter Progress Notes * Meggan Joshi - 04/11/2023 1:45 PM EDT Plastic Surgery Follow Up Note (Telephone) Provider: Beau Torrez M.D. Reason for visit: F/U to finalize surgical plans Date of surgery: 07/04/21 Procedure(s): scar revision to abdomen scar (Shan) Complications: None reported Date of Surgery: 01/03/21 Procedure(s): panniculectomy (Shan) Complications: none reported HPI: Pt reports that she is continuing to work on her weight loss. She is currently at 240lbs and would like to reach a goal weight of 200lbs. Patient reports that she has recently been having GI issues. Examination: No examination due to telephone visit. Impression: Tiffanie Monreal is a 38 y.o. female who was seen today to check her progress in reachingher BMI goal. Patient has been having GI issues and will be seeing a specialist in May 2023. Myron follow up in two months. Plan: Follow up with telephone visit two months to finalize surgical planning Potential Surgical Grid Surgeon: Shan Duration: 2 hours Timeframe: elective; schedule for fall Procedure: thighplasty (pt does not need to be admitted.) CPT: 96307 Surgical site: legs Side: sofie Anesthesia: General Follow up: 7 Days THHF: Y/N: no H&P: no Implants needed: no I, Meggan Joshi, have performed the documentation for this encounter in the presence of and acting as a scribe for Beau Torrez MD. documented in this encounter Plan of Treatment Upcoming Encounters Date Type Department Care Team (Late st Contact Info) Description 06/02/2024 8:00 AM EDT Office Visit [place] [address] Julienne Lacey APRN [facility] [place] [address] 07/24/2024 1:30 PM EST Office Visit Weight [place] [phone] Jenni Brennan MD [facility] DR [facility] [place] [address] documented as of this encounter Visit Diagnoses Diagnosis Excessive skin and subcutaneous tissue documented in this encounter Care Teams Director Strategy Relationship Specialty Start Date End Date Saumya Felipe APRN [address] [place] [address] PCP - General Family Medicine 12/31/22 documented as of this encounter
--- OUTSIDE RECORDS SUMMARY | 2024-05-25 14:50 | XMS_ITS | Encounter Summary ---
Author Organization [facility] Address [facility] [place] [address] Care Team Providers Care Matcher Offbearer Name Role Phone Kezia Aguirre MD Primary Care Provider [phone] Reason for Visit * Reason Comments Follow-up Drain removal Encounter Details Date Type Department Care Team (Latest Contact Info) Description 01/19/2021 2:00 PM EDT Clinical Support Plastic Surgery at [facility] [place] [phone] Follow-up examination, following other surgery Social History Tobacco Use Types Packs/Day [...] this encounter Patient Instructions * Patient Instructions* Julianna Zamorano RN - 01/19/2021 2:00 PM EDT Patient Instructions Follow up: in 4-[address] Torrez Activity Restrictions: From the date of your surgery we would request that you don't do any heavy, lifting, pushing, pulling, anything over 5 pounds for 6 weeks after your surgery, Unless other restrictions were discussed with your surgeon. Wear compression garment as instructed Spitting sutures: Occasionally an area of redness and tenderness develops where a dissolving stitchbecomes irritated and pushes to the surface. This stitch is clear or white and looks like fish line. If this occurs, it is not an emergency. You may clip the stitch or call the clinic for an appointment with the nurse. Drains: We have removed your drain(s) and applied a dressing. You may remove the dressing in 24 hours and shower. After showering, you may cover the drain site(s) with a bandaid. The drain site is typically closed in approximately three days. Signs of Infection : A temperature over 100.4 F or 38 C. Redness at the incision line that is beginning to spread away from the incision after the first 48 hours. Yellow pus-like or foul smelling drainage larger than a dime size from the incision or drain sites. Increased pain / discomfort that is not relieved by your pain medicine such as extra strength tylenol, or NSAIDS -SCAR MASSAGE TECHNIQUE: to begin 4-6 weeks following surgery What is a scar? When an injury occurs, the body immediately begins to repair itself & the area becomes swollen & sore. Eventually small collagen fibers form, becoming a solid tissue that results in a scar. This scar will continue to change in appearance for 1-2 years. Ideally, a scar is smooth & flat, blending in with the surrounding skin. However, some scars may become highly visible & unattractive due to factors such as your age, scar location & size, nutrition, genetics, or infection. A hypertrophic scar occurs when there is an excess production of collagen tissue that is elevated but remains within the wound boundaries. The scar is tense, red, & can be associated with itching & tenderness. A hypertrophic scar can be ordinary (usually stabilizes in 3 months & may even get smaller and smoother) or keloid. The keloid scar invades nearby tissue that was not part of the original wound, tends to enlarge even after 6 months & does not get softer. Will scar massage make my scars disappear? Nothing can make scars disappear. However, massaging the scar assists the body in breaking down thescar tissue to give it a flatter, softer, appearance. Massage also mobilizes the scar, preventing it from adhering to underlying tissue, tendons, & nerves. You can make the greatest difference in the appearance of the scar if you massage it in the first 3months. What should I use on my scars? You will hear many recommendations. This clinic finds that it is the massage itself that reduces the scar & not necessarily the choice of ointments or creams. We do discourage the use of Vitamin E oil, however, due to studies that have reported scar inflammation & deterioration. How do I massage my scars? Apply the lotion or cream into the scar 3-4 times a day for 8 weeks on new scars, and 3-4 times perday for 3 to 6 months on existing scars. Using your finger, apply pressure to the scar in a crosswise & circular direction, bearing down as hard as tolerated. Remember to protect your scar from the sun, especially in the first 6-12 months, by using a moisturizer with sunblock and wearing a physical barrier (ie: a hat) when possible For any questions or concerns, please call our nurse's line at [phone] M - F 8 - 5 For after hours, and on weekends; Call [phone] and ask for our plastic surgeon director information security documented in this encounter Progress Notes * Julianna Zamorano RN - 01/19/2021 2:00 PM EDT Reason for Visit: Postoperative Evaluation s/p Date of Surgery: 01/03/21 Procedure(s): panniculectomy (Shan) POD # 17 Tiffanie is here for an drain removal. Subjective: Tiffanie states she has mild discomfort, she states has had good relief from extra strength tylenol and motrin. Objective: Bruising: mild bilaterally abdomen Swelling: mild bilaterally abdomen Sutures absorbable,,incision well approximated Seen by Dr. Torrez during appointment Assessment: No signs of delayed healing,erythema,or fluid collection.Incisions CDI. Plan: We reviewed post op incision instructions including: Return to work on light duty with activity restrictions for six weeks post- surgery: no pushing, no pulling, no lifting in excess of 5 pounds; no core- engaging activities, Back to work note received at visit We reviewed signs and symptoms of infection, spitting sutures, parameters for normal post op swelling and bruising. Correct phone numbers to call us for concerns. Dressing instructions: none Tiffanie expressed understanding of instructions,and agrees with the plan of care. Follow up in 4-[address] Torrez for wound / incision check. documented in this encounter Plan of Treatment Upcoming Encounters Date Type Department Care Team (Late st Contact Info) Description 06/02/2024 8:00 AM EDT Office [place] [address] Julienne Lacey APRN [facility] [place] [address] 07/24/2024 1:30 PM EST Office Visit [place] [phone] Jenni Brennan MD [facility] [address] [place] [address] documented as of this encounter Visit Diagnoses Diagnosis Follow-up examination, following other surgery documented in this encounter Care Teams Matcher Offbearer Relationship Specialty Start Date End Date Kezia Aguirre MD [address] [place] [address] PCP - General Family Medicine 12/24/16 12/30/22 documented as of this encounter
--- OUTSIDE RECORDS SUMMARY | 2024-05-25 14:50 | XMS_ITS | Encounter Summary ---
[place] [address] Care Team Providers Care Straw Hat Brusher Name Role Phone Kezia Aguirre MD Primary Care Provider [phone] Encounter Details Date Type Department Care Team (Late Contact Info) Description 11/08/2020 Telephone [place] [phone] Casandra Alvarenga Social History Tobacco Use Types [...] * Telephone Encounter - Casandra Alvarenga - 11/08/2020 9:40 AM EDTSummary: Referral to Plastics Returned call to Tiffanie from she left re: obtaining a referral to plastics. I have sent a messageto Luz Vinson indicating she is wanting a referral and could this be done without an office visit or if the patient will need to come and see her again to obtain this. I will reach out to Tiffanie once I get a response from Luz. documented in this encounter Plan of Treatment Upcoming Encounters Date Type Department Care Team (Late st Contact Info) Description 06/02/2024 8:00 AM EDT Office [place] [address] Julienne Lacey APRN [facility] [place] [address] 07/24/2024 1:30 PM EST Office Visit [place] [phone] Jenni Brennan MD [facility] [address] [place] [address] documented as of this encounter Visit Diagnoses Not on filedocumented in this encounter Care Teams Straw Hat Brusher Relationship Specialty Start Date End Date Kezia Aguirre MD [address] [place] [address] PCP - General Family Medicine 12/24/16 12/30/22 documented as of this encounter
--- OUTSIDE RECORDS SUMMARY | 2024-05-25 14:50 | XMS_ITS | Encounter Summary ---
Author Organization [facility] Address [facility] [address] [place] [address] Care Team Providers Care Gluer Machine Setup Operator Name Role Phone Kezia Aguirre MD Primary Care Provider [phone] Encounter Details Date Type Department Care Team (Latest Contact Info) Description 11/05/2022 Travel Social History Tobacco Use Types Packs/Day [...] 8:00 AM EDT Office [place] [phone] Julienne Lacey APRN [facility] [place] [address] 07/24/2024 1:30 PM EST Office [place] [phone] Jenni Bernnan MD [facility] [address] [address] documented as of this encounter Visit Diagnoses Not on filedocumented in this encounter Care Teams Gluer Machine Setup Operator Relationship Specialty Start Date End Date Kezia Aguirre MD [address] [place] [address] PCP - General Family Medicine 12/24/16 12/30/22 documented as of this encounter
--- OUTSIDE RECORDS SUMMARY | 2024-05-25 14:50 | XMS_ITS | Encounter Summary ---
Author Organization [facility] [place] [address] Care Team Providers Care Certified Marine Mechanic Name Role Phone Kezia Aguirre MD Primary Care Provider [phone] Encounter Details Date Type Department Care Team (Late st Contact Info) Description 01/02/2022 Orders Only [place] [address] Luz Vinson [facility] [place] [address] Post-resection malabsorption; Status post bariatric surgery Social [...] 8:00 AM EDT Office Visit [place] [address] Julienne Lacey [facility] [place] [address] 07/24/2024 1:30 PM EST Office Visit Weight [place] [address] Jenni Brennan MD [facility] [address] [address] documented as of this encounter Visit Diagnoses Diagnosis 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
--- OUTSIDE RECORDS SUMMARY | 2024-05-25 14:50 | XMS_ITS | Encounter Summary ---
Author Organization [facility] Address [facility] [place] [address] Care Team Providers Care Hydraulic Oil Tool Operator Name Role Phone Kezia Aguirre MD Primary Care Provider [phone] Reason for Visit * Reason Comments Follow Up Surgery s/p panniculectomy - has some concerns about incision line and swelling Encounter Details Date Type Department Care Team (Late st Contact Info) Description 03/02/2021 3:45 PM EDT Office [place] [address] Beau Torrez MD [facility] [place] [address] Surgery follow-up Social History Tobacco Use Types [...] this encounter Patient Instructions * Patient Instructions* Amy Moreno, KELSEA - 03/02/2021 3:45 PM EDT Preoperative Instructions You have been scheduled to have plastic surgery. The instructions below are specific to your procedure. If you are a smoker, we ask that you stop at least 2 months prior to your surgical date and remain nicotine free for at least a month after surgery. Smoking can impair healing and increase your chance of infection. Two Weeks prior to Surgery Do not take any Aspirin or aspirin containing products for the 2 weeks leading up to surgery. You may resume taking 48 hours after surgery. Do not take medications containing Ibuprofen. Do not take any anti-steroidal's such as Advil, Aleve, Celebrex, Daypro, Indocin, Midol, Motrin, Naproxen, Nuprinand Toradol. These medications increase your risk of bleeding. You may resume taking any of these medications 48 hours after surgery. Stop Vitamin E, Garlic supplements, Ginseng, Fish Oil tablets, Ginkgo and George's Wort and any other herbals. You may resume taking 48 hours after surgery. If you need medication for pain, you may take Tylenol or extra strength Tylenol during this two week period. One Week prior to Surgery Please call if you feel ill, have cold or fever, have a rash or breaks in the skin near your surgical site. Stay hydrated. Avoid alcohol and recreational drugs Three Days before Surgery Do not shave near your surgical site One Day before Surgery Shower the night before and the morning of surgery using an antibacterial soap (Dial or Lever 2000)or Hibiclens wash The Same Day Surgery Team will call you the business day before your surgery to give you instructions specific to your procedure and your surgical time. Generally, you will be asked not to eat any solids after midnight. You are allowed clear liquids (water, emil thomas, apple juice, black coffee andplain tea) until 2 hours prior to your surgery. Day of Surgery A local combination truck driver is required at time of discharge. If you are a Same Day procedure and do not have a driveryour surgery will be canceled. DO NOT wear any jewelry, makeup or artificial nails the day of surgery. DO NOT apply any lotions, powders or deodorants on or near the surgical site the day of surgery. Do wear comfortable, loose fitting clothes. Anesthesia will meet with you the morning of surgery. They will perform an assessment and review your history with you. Contact Information: During regular office hours (Saturday- Saturday, non-holiday 8:00 am- 5:00 pm) For an appointment or insurance questions [phone] For questions pertaining to your surgical date [phone] For nursing related questions [phone] On weekends, holidays or after office hours: Call and ask the gin pole operator to page the Plastic Surgery Resident material liaison. documented in this encounter Progress Notes * Beau Torrez MD - 03/02/2021 3:45 PM EDT Plastic Surgery Post-Op Note Provider: Beau Torrez M.D. Reason for visit: F/U status post procedure Date of Surgery: 01/03/21 Procedure(s): panniculectomy (Shan) Complications: none reported HPI: Patient returns to clinic for a standard follow up visit s/p panniculectomy. She has healed nicely post operatively but has concerns for assymetry right to left. She is wondering about her options to best improve this issue. Examination: Patient is alert, comfortable, ambulating Abdomen-assymetry right to left. With skin excess and depressed scar just right of midline to ASIS. Umbilicus: perfused Umbilicus inset incision: C/D/I Transverse incision: C/D/I No collection, no erythema, no evidence of cellulitis Impression: Tiffanie Monreal was seen today in follow-up after the above procedure.Please see the operative note for details. Healing well from panniculectomy but does have assymetry right to left. It is reasonable to proceed with revision. Patient preference is to proceed with his at the osc not in minor. Surgical Case Surgeon: Shan Duration: 60 min Timeframe: next available Procedure: scar revision CPT: 27804 Surgical site:abdomen Side: right Anesthesia: General Follow up: 7 Days THHF: Y/N: no H&P: no Plan: Proceed with scar revision Follow up in one week post op IYesika, have performed the documentation for this encounter in the presence of and acting as a scribe for Beau Torrez MD. documented in this encounter Plan of Treatment Upcoming Encounters Date Type Department Care Team (Late st Contact Info) Description 06/02/2024 8:00 AM EDT Office [place] [address] Julienne Lacey APRN [facility] [place] [address] 07/24/2024 1:30 PM EST Office Visit [place] [phone] Jenni Brennan MD [facility] [address] [facility] [address] documented as of this encounter Visit Diagnoses Diagnosis Surgery follow-up Follow-up examination, following unspecified surgery documented in this encounter Care Teams Hydraulic Oil Tool Operator Relationship Specialty Start Date End Date Kezia Aguirre MD [address] [place] [address] PCP - General Family Medicine 12/24/16 12/30/22 documented as of this encounter
--- OUTSIDE RECORDS SUMMARY | 2024-05-25 14:50 | XMS_ITS | Encounter Summary ---
Author Organization [facility] Address [facility] [place] [address] Care Team Providers Care Animal Daycare Provider Name Role Phone Kezia Aguirre MD Primary Care Provider [phone] Reason for Visit * Auth/Cert Specialty Diagnoses / Procedures Referred By Contesdras t Referred To Contact Diagnoses pannus Procedures PRO EXCISE EXCESS SKIN TISSUE, ABDOMEN PANNICULECTOMY Referral ID Status Reason Start Date Expiration Date Visits Re quested Visits Authorized [id number] 1 1 Encounter Details Date Type Department Care Team (Late st Contact Info) Description 01/03/2021 11:56 AM EDT - 01/03/2021 3:24 PM EDT Surgery [place] [phone] Beau Torrez MD [facility] DR [place]LASTIC [place] [address] PANNICULECTOMY (WRVU 17.11) Social History Tobacco Use Types Packs/Day Years [...] Sign Reading Time Taken Comments Blood Pressure 112/66 01/03/2021 11:20 AM EDT Pulse 58 01/03/2021 11:20 AM EDT Temperature 36.6 ??C (97.9 ??F) 01/03/2021 11:20 AM E DT Respiratory Rate 18 01/03/2021 11:20 AM EDT Oxygen Saturation 99% 01/03/2021 11:20 AM EDT Inhaled Oxygen Concentration - - Weight 101.4 kg (223 lb 8 oz) 01/03/2021 11:20 A M EDT Height 167 cm (5' 5.75) 01/03/2021 11:20 AM EDT Body Mass Index 36.35 01/03/2021 11:20 AM EDT documented in this encounter Discharge Summaries * Toshia Knapp, ELECTRONICS ENGINEER - 01/04/2021 7:24 AM EDT Images from [...] SPECIMENS performed by Jerica Dubose MD at [facility] OR ??? PRO UPPER GI ENDOSCOPY, DIAGNOSTIC N/A 04/14/2020 EGD, UPPER GI ENDOSCOPY performed by Jerica Dubose MD at [facility] OR ??? TUBAL LIGATION Bilateral 2007 Procedures: [...] Name: Bariatric multivitamin 2 tablet Refills: 0 *Tiffanie Liz Monreal is getting a prescription opioid [...] scheduling, please contact our administrative offices at [phone]. For clinical questions, please call our nurses at [phone]. Both offices are open Saturday thru Saturday 8a - 5p. With emergencies after hours, call the hospital motorcoach operator at [phone] and ask for the Plastic Surgery Resident crisis intervention counselor. Scheduled Appointments: Future Appointments Date Time Provider Department Center 01/12/2021 3:00 PM Toshia Knapp, ELECTRONICS ENGINEER [facility] Outpatient Services/Studies: No discharge procedures on file. [...] from each drain. Call the clinic at [phone] and schedule an appointment with the nurses [...] office hours: Saturday - Saturday 8am-5pm call [phone]. On weekends or after hours call [phone] and ask the motorcoach operator to page the plastic surgery resident crisis intervention counselor. PAIN MEDICATION: You were given a prescription [...] Saturday 8 am to 5 pm): Call [phone]. On weekends or after hours: Call [phone] and ask the motorcoach operator to speak to the Plastic Surgery Resident on-call. FOLLOW-UP APPOINTMENTS: Please call [phone] if you have not received a phone call or letter with your appointment in atimely fashion. Your follow-up has been scheduled: Future Appointments Date Time Provider Department Center 01/12/2021 3:00 PM Toshia Knapp APRN [facility] General Instructions None Future Appointments and Orders Future Appointments and Orders Future Appointments Provider Department Dept Phone 01/12/2021 3:00 PM Toshia Knapp APRN Plastic Surgery at [facility] Arrive at: Lap Winding Machine Operator Area 4M [phone] Call your doctor if: Please call your [...] from each drain. Call the clinic at [phone] and schedule an appointment with the nurses [...] office hours: Saturday - Saturday 8am-5pm call [phone]. On weekends or after hours call [phone] and ask the motorcoach operator to page the plastic surgery resident crisis intervention counselor. PAIN MEDICATION: You were given a prescription [...] Saturday 8 am to 5 pm): Call [phone]. On weekends or after hours: Call [phone] and ask the motorcoach operator to speak to the Plastic Surgery Resident on-call. FOLLOW-UP APPOINTMENTS: Please call [phone] if you have not received a phone call or letter with your appointment in atimely fashion. Your follow-up has been scheduled: Future Appointments Date Time Provider Department Center 01/12/2021 3:00 PM Toshia Knapp APRN [facility] [address] [place] [address] documented in this encounter Medications at Time [...] UOP adequate (600cc) Leidy Watts MD Pager: [phone] * Crissy Palm RN - 01/03/2021 4:44 [...] SPECIMENS performed by Jerica Dubose MD at [facility] OR ??? PRO UPPER GI ENDOSCOPY, DIAGNOSTIC N/A 04/14/2020 EGD, UPPER GI ENDOSCOPY performed by Jerica Dubose MD at [facility] OR ??? TUBAL LIGATION Bilateral 2007 Family [...] 2100. Pt oriented to room and educated crisis intervention counselor carrasquillo usage and fall prevention protocols. Abdominal [...] Operative Note Patient Name: Tiffanie Monreal : [id number] MR#: [id number] Case Date: 01/03/2021 Surgeon: Surgeon(s) and Role: [...] Center 01/12/2021 3:00 PM Toshia Knapp APRN [facility] * Op Note - Beau Torrez MD - 01/03/2021 1:52 PM EDT [facility] Operative Note Patient Name: Tiffanie Monreal : [id number] MR#: [id number] Case Date: 01/03/2021 Surgeon: Surgeon(s) and Role: [...] 8:00 AM EDT Office [place] [phone] Julienne Lacey APRN [facility] [place] [address] 07/24/2024 1:30 PM EST Office Visit [place] [address] Jenni Brennan MD [facility] DR [facility] [address] documented as of this encounter Procedures Procedure Name Priority Date/Time Associated Diagnosis Comments RAPID COVID-19 PCR ([facility]/APD/[place]) Routine 01/03/2021 10:27 PM EDT PANNICULECTOMY [...] using the Simplexa COVID-19 Direct Assay by [employer] as authorized by the FDA issued Emergency [...] Department of Pathology and Laboratory Medicine at [facility], certified under the Clinical Laboratory Improvement Amendments [...] fact sheets at the following FDA website: https://www.fda.gov/medical-devices/gegzpbyvtet-ntkjzpg-6919-slggx-65-vopdmbygt- use-a zsuuzvqhihcit-slsfmfj-vxnrewk/buvhn-kzfyaaogcas-bdix SARS-CoV-2 Source TACK PULLER Swab [facility] Nasopharyngeal Swab 01/04/20 10:27 PM EDT 01/03/2021 11:04 PM EDT Comment:Symptoms->Surveillan ce Narrative Resulting Agency Comment Spec In Lab Beau Torrez MD MICROBIOLOGY - G[facility] ORDERABLES [facility] [place] [address] documented in this encounter Visit Diagnoses Diagnosis Abdominal pannus- Primary Localized adiposity Abdominal pannus Localized adiposity documented in this encounter Admitting [...] Given 01/03/2021 10:22 PM EDT 100 mg lidocaine-EPINEPHrine (1% - 1:100,000) injection ONCE PRN, Starting on Sat01/03/21 at 1358, Until Sat01/04/21 at 1155, Intra-Operative (Intra-Procedure), Routine Given 01/03/2021 1:58 PM EDT 8 mLs 19- Surgical Site oxyCODONE (Roxicodone) tablet 5-10 mg 5-10 mg, [...] Palm RN) 0310 (Given - Provider: Armida Zapien RN) acetaminophen (Tylenol) tablet 975 mg (COMPLETED) 975 [...] 2245, Until Discontinued, Recovery (Recovery-Hospital Unit), Routine 2221 (Given - Provider: Armida Zapien [...] 10mg, Routine 1840 (Given - Provider: Crissy Palm RN)2335 (Given - Provider: Armida Zapien RN) 0818 (Given - Provider: Joe Ferreira RN) sodium chloride 0.9 % (flush) flush 5-20 mL 5-20 mL, Intravenous, EVERY 1 MIN PRN, Starting on Sat01/03/21 at 2156, Until Sat01/04/21 at 1155, flush, Flush pertains to all indwelling lines. Flush per protocol found in the job aid using the link provided on this medication record., Recovery (Recovery-Hospital Unit), Routine documented in this encounter Care Teams Animal Daycare Provider Relationship Specialty Start Date End Date Kezia Aguirre MD [address] [place] [address] PCP - General Family Medicine 12/24/16 12/30/22 documented as of this encounter
--- OUTSIDE RECORDS SUMMARY | 2024-05-25 14:50 | XMS_ITS | Encounter Summary ---
Author Organization [facility] [place] [address] Care Team Providers Care Evs Attendant Name Role Phone Kezia Aguirre MD Primary Care Provider [phone] Encounter Details Date Type Department Care Team (Late st Contact Info) Description 03/30/2021 Telephone [place] [address] Casandra Alvarenga Social History Tobacco [...] * Telephone Encounter - Casandra Alvarenga - 03/30/2021 11:31 AM EDTSummary: BARIATRIC - FOLLOW UP Left message for Tiffanie to call and schedule the 6 month followup as outlined in her last visit documented in this encounter Plan of Treatment Upcoming Encounters Date Type Department Care Team (Late st Contact Info) Description 06/02/2024 8:00 AM EDT Office [place] [phone] Julienne Lacey APRN [facility] [place] [address] 07/24/2024 1:30 PM EST Office Visit [place] [phone] Jenni Brennan MD [facility] [address] [facility] [address] documented as of this encounter Visit Diagnoses Not on filedocumented in this encounter Care Teams Evs Attendant Relationship Specialty Start Date End Date Kezia Aguirre MD [address] [place] [address] PCP - General Family Medicine 12/24/16 12/30/22 documented as of this encounter
--- OUTSIDE RECORDS SUMMARY | 2024-05-25 14:50 | XMS_ITS | Encounter Summary ---
Author Organization [facility] Address [facility] [place] [address] Care Team Providers Care Materials Tech Name Role Phone Kezia Aguirre MD Primary Care Provider [phone] Reason for Visit * Reason Comments Advice Only panni - possible thi [facility] as well * Consultation (Routine) - Closed Specialty Diagnoses / Procedures Referred By Contac t Referred To Contact Plastic Surgery Diagnoses Pannus, abdominal LancasterLuz duffy APRN [facility] [place] [address] [facility] [address] [address] Referral ID Status Reason Start Date Expiration Date V isits Requested Visits Authorized [id number] Closed Consult, Test & Treat 11/08/2020 11/08/2021 1 1 Encounter Details Date Type Department Care Team (Late st Contact Info) Description 11/10/2020 8:00 AM EDT Office Visit [place] [address] Beau Torrez MD [facility] [place] [address] Abdominal pannus Social History Tobacco Use Types Packs/Day Years [...] - Inhaled Oxygen Concentration - - Weight 98.9 kg (218 lb) 11/10/2020 8:14 AM EDT Height 165.1 cm (5' 5) 11/10/2020 8:14 AM EDT Body Mass Index 36.28 11/10/2020 8:14 AM EDT documented in this encounter Patient Instructions * Patient Instructions* NehemiasMelody Amy Hill ASHLEYMadeline - 11/10/2020 8:00 AM EDT Preoperative Instructions You have been scheduled to have plastic surgery. The instructions below are specific to your procedure. If you are a smoker, we ask that you stop at least 2 months prior to your surgical date and remain nicotine free for at least a month after surgery. Smoking can impair healing and increase your chance of infection. One Month prior to Surgery Schedule a pre-operative physical with your primary care doctor Two Weeks prior to Surgery Do not [...] week period. One Week prior to Surgery Do not take any Aspirin or aspirin containing products for the 1 week leading up to surgery. You may resume taking 48 hours after surgery. Please call if you feel ill, have [...] to your surgery. Day of Surgery A regional tanker truck driver is required at time of [...] pm) For an appointment or insurance questions [phone] For questions pertaining to your surgical date [phone] For nursing related questions [phone] On weekends, holidays or after office hours: Call and ask the black mill operator to page the Plastic Surgery Resident receptionist nurse. You will need a COVID test prior to your SURGERY> documented in this encounter Progress Notes * Beau Torrez MD - 11/10/2020 8:00 AM EDT Plastic Surgery Consultation Note Provider: Beau Torrez M.D. PCP: Kezia Aguirre MD CC: Abdominal pannus HPI: Tiffanie Monreal is a 35 y.o. female seen in my office today for consideration for abdominal panniculectomy. Her maximum weight was 295 lbs in [...] had 2 C-sections, lap gallbladder excision and hysterectomy. [ x ]The pannus causes a chronic and persistent skin condition (e.g., intertriginous dermatitis, panniculitis, and cellulitis or skin ulcerations) that is refractory to at least three months of medical treatment and associated with at least one episode of cellulitis requiring systemic antibiotics. In addition to good hygiene practices, treatment should include topical antifungals, topical and/or systemic corticosteroids, and/or local or systemic antibiotics. [x ]There is presence of a functional deficit due to a severe physical deformity or disfigurement resulting from the pannus. [ x ]The surgery is expected to restore or improve the functional deficit. [ x ]The pannus is interfering with activities of daily living. Past Medical History: Diagnosis Date ??? Anxiety ??? Depression ??? Obesity Past Surgical History: Procedure Laterality Date ??? SECTION, LOW TRANSVERSE 2003 ??? SECTION, LOW TRANSVERSE 2007 ??? CHOLECYSTECTOMY, LAPAROSCOPIC ??? HYSTERECTOMY ??? PRO LAP GASTRIC BYPASS/SHELBIE-EN-Y N/A 09/30/2018 @LAPAROSCOPIC GASTROPLASTY, (WRVU 29.4) performed by Jerica Dubose MD at [facility] OR ??? PRO UPPER GI ENDOSCOPY, DIAGNOSTIC N/A 09/30/2018 ENDOSCOPY, UPPER GI, DIAGNOSTIC, WITH OR WITHOUT SPECIMENS performed by Jerica Dubose MD at [facility] OR ??? PRO UPPER GI ENDOSCOPY, DIAGNOSTIC N/A 04/14/2020 EGD, UPPER GI ENDOSCOPY performed by Jerica Dubose MD at [facility] OR ??? TUBAL LIGATION Bilateral 2007 Social History Socioeconomic History ??? Marital status: Single Spouse name: Not on file ??? Number of children: Not on file ??? Years of education: Not on file ??? Highest education level: Not on file Occupational History ??? Not on file Tobacco Use ??? Smoking status: Former Smoker Packs/day: 0.50 Years: 2.00 Pack years: 1.00 Types: Cigarettes Quit date: 03/27/2008 Years since quittin.6 ??? Smokeless tobacco: Never Used Substance and Sexual Activity ??? Alcohol use: Yes Types: 1 Glasses of wine, 1 Cans of beer per week ??? Drug use: No ??? Sexual activity: [...] Week: ??? Minutes of Exercise per Session: Stress: ??? Feeling of Stress : Social Connections: ??? Frequency of Communication with Friends and Family: ??? Frequency of Social Gatherings with Friends and Family: ??? Attends Anabaptism Services: ??? Active Member of Clubs or Organizations: ??? Attends Club or Organization Meetings: ??? Marital Status: Intimate Partner Violence: ??? Fear of Current or Ex-Partner: ??? Emotionally Abused: ??? Physically Abused: ??? Sexually Abused: Examination: There were no vitals taken for this visit. female in no acute distress, comfortable. Abdomen: Grade 2: Panniculus extends to cover the genitalia She has a well healed, yes scars Hernia palpable: no Diastasis: no Active rash or intertrigo: yes Impression: Tiffanie Monreal is a suitable candidate for panniculectomy which would likely correct her physical symptomatology. We talked about the scars and risks from panniculectomy. She is aware that infection, delayed wound healing, seroma and numbness are possibilities. She has been provided with the [facility] patient information brochure, as well as their standard informed consent documents on both abdominoplasty, and panniculectomy. She has expressed a desire to proceed with surgical correction. I feel strongly that she will gain significant symptom relief and avoid further intertrigo following surgery. We have obtained photographs today. Insurance Guidelines [x ] Pannus grade 2 or higher [x ] Rashes; prescribed and documented treatment for any rashes that don???t respond to 3 - 6 months of treatment. [x ] If the weight has been lost due to gastric bypass, it must be 18 months s/p bariatric surgery [x ] Patient must be at goal weight and stable 6 months Surgical Grid: Surgeon: Dr. Torrez Duration: 2 hours- 1 admit Timeframe: Elective Coordinated with: None Procedure: Panniculectomy CPT: 54198 Surgical site: Abdomen Side: N/a Anesthesia: General Follow up: 7-10 days with [facility]: Y/N: no H&P: yes Need to discontinue blood thinners pre-op? No Needs covid test Plan: Proceed with Panniculectomy Follow up 7-10 days post surgery Needs covid test (Even if she has had her covid vaccination) IYesika have performed the documentation for this encounter in the presence of and acting as a scribe for Beau Torrez MD. documented in this encounter Plan of Treatment Upcoming Encounters Date Type Department Care Team (Late st Contact Info) Description 06/02/2024 8:00 AM EDT Office Visit [place] [address] Julienne Lacey APRN [facility] [place] [address] 07/24/2024 1:30 PM EST Office Visit Weight [place] [address] Jenni Brennan MD [facility] [address] [facility] [place] [address] documented as of this encounter Visit Diagnoses Diagnosis Abdominal pannus Localized adiposity documented in this encounter Care Teams Materials Tech Relationship Specialty Start Date End Date Kezia Aguirre MD [address] [place] [address] PCP - General Family Medicine 12/24/16 12/30/22 documented as of this encounter
--- OUTSIDE RECORDS SUMMARY | 2024-05-25 14:50 | XMS_ITS | Encounter Summary ---
Author Organization [facility] Address [facility] [place] [address] Care Team Providers Care Infant Babysitter Name Role Phone Kezia Aguirre MD Primary Care Provider [phone] Reason for Visit * Auth/Cert Specialty Diagnoses / Procedures Referred By Contac t Referred To Contact Diagnoses panni Procedures PRO ADJ TISS XFER TRUNK <10SQCM ADJ.TISSUE TRANSFER, REARRANGEMENT, TRUNK,10SQ.CM OR LESS (WRVU 6.37) Referral ID Status Reason Start Date Expiration Date Visits Re quested Visits Authorized [id number] 1 1 Encounter Details Date Type Department Care Team (Late st Contact Info) Description 07/04/2021 10:10 AM EST - 07/04/2021 11:30 AM EST Surgery [place] [address] Beau Torrez MD [facility] [place] [address] ADJ.TISSUE TRANSFER, REARRANGEMENT, TRUNK,10SQ.CM OR LESS (WRVU 6.37) Social History Tobacco Use Types Packs/Day Years [...] Sign Reading Time Taken Comments Blood Pressure 126/65 07/04/2021 9:11 AM EST Pulse 64 07/04/2021 9:11 AM EST Temperature 36.6 ??C (97.9 ??F) 07/04/2021 9:11 AM ES T Respiratory Rate 18 07/04/2021 9:11 AM EST Oxygen Saturation 97% 07/04/2021 9:11 AM EST Inhaled Oxygen Concentration - - Weight 94.3 kg (208 lb) 07/04/2021 9:11 AM EST Height 165.1 cm (5' 5) 07/04/2021 9:11 AM EST Body Mass Index 34.61 07/04/2021 9:11 AM EST documented in this encounter Discharge Instructions * Patient Instructions* Maya James MD - 07/04/2021 12:20 PM EST What to Expect.... The healing process after abdominoplasty/panniculectomy revision surgery varies with each person. You should expect to feel tired for the first 2 - 3 weeks due to anesthesia and the healing process. Rest often during the day and get a good night sleep. Pain (short term and retirement) With any surgery there is some discomfort or pain. OK to take Tylenol, do not exceed 3 grams per day. OK to add Ibuprofen 48 hours after surgery. You may have nerve pain after your surgery because the nerve endings have been disturbed. Nerve pain may feel like a burning sensation, itching or a shooting, electric shock pain. This is normal and will get better as you heal. Swelling Moderate bruising and swelling is normal in the first few weeks after surgery. The swelling will gradually go down, but generalized abdominal swelling above the incision may last for several weeks to6 months due to tissue fluid build-up. You will be provided with an abdominal binder or girdle. Wear it 24 hours a day for 4 to 6 weeks, removing it briefly to shower. Do not use heat or ice on your surgical site. Drains Record drain output and bring to your first clinic appointment with you. Your drains will be removed when the drainage is 30cc or less in a 24 hour period for 2 days in a row.The nurses will show you how to care for the drains. Showering You may shower 48 hours after surgery. Remove all dressings before showering. Gently wash your incisions with soap and water. Pat dry with a clean towel. If you feel more comfortable with dressings under the binder, then you may replace them after showering to suit your comfort needs. Do not take a bath or submerge in a hot tub, pool, or body of water until incisions are completely healed, about 4-6 weeks. If you have drains in place, tie a shoe lace or string around your neck and attach the drains to this to prevent accidental removal. Have someone nearby during your first shower. Incisions/Dressings You may have some red, pink, yellow/clear drainage from your incisions for the first 1-2 weeks. Change gauze as needed. Continue to use dressings until there is no more drainage. If present, nonabsorbable stitches are removed around 2 weeks after your surgery. No over the counter lotions, solutions, or herbal preparations on your incisions unless directed by your doctor. Spitting sutures: Occasionally an area of redness and tenderness develops where a dissolving stitchbecomes irritated and pushes to the surface. If this occurs, it is not an emergency. You may clip the stitch with a clean scissor or call for an appointment with a nurse. DO???S AND DON???TS FOR THE NEXT [address] a motor vehicle for 1-2 weeks or until you can handle the steering wheel without discomfort. Do not drive while taking your narcotic. You will be able to wear a seat belt if you place a small pillow over your abdominal area. Do not engage in sexual activity for 6 weeks. Do not smoke or be around anyone who smokes for 2 weeks after your surgery. Smoking delays healing and can lead to infection. Do not lift more than 5 pounds or bend at the waist to lift for 6 weeks. Do not lift more than 10-20 pounds for 3 months. Do not participate in strenuous activities such as running or aerobics for 6 weeks. Do resume walking at a gentle pace. Walking improves circulation, respiratory function and healing. Protect your incisions from the sun for 6 months. You may return to work in 1-6 weeks (average time is 3 weeks) depending upon your work activity GETTING A GOOD NIGHT SLEEP To reduce the strain on your incision, you should remain in a flexed/recliner chair position for about 5 days- this may take longer in some instances so let your body be your guide. Here are some suggestions for a good night sleep. Try sleeping in a recliner. Have extra pillows in your bed for support: two along your side and one under your knees to relievelower back pressure. Buy a large body pillow or a pillow with arm rests for sitting up in bed. Complications: Call your doctor with the following: Signs of infection: A temperature over 100.4 F or 38 C Redness at the incision line that spreads away from the incision after the first 48 hours Thick yellow, foul smelling drainage Increasing pain that is not relieved by your pain medicine Seromas/Hematoma: Before or after your drains are removed, if you notice localized swelling this could be a collection of fluid under the skin at or near the incision site. Contact your Doctor To make an appointment or for questions about scheduling, please contact our administrative officesat [phone] For clinical questions, please call our nurses at [phone] Both offices are open Saturday thru Saturday 8a - 5p. With emergencies after hours, call the hospital comb machine operator at [phone] and ask for the Plastic Surgery Resident documented in this encounter Medications at Time of Discharge Medication Sig Dispensed Refills Start Date End Date traZODone (Desyrel) 50 mg Tablet Take 150 mg by mouth nightly as needed for Sleep. 06/29/2021 UNABLE TO FIND 2 tablets daily. Med Name: Bariatric multivitamin acetaminophen 500 mg Capsule Take by mouth 2 times daily. oxyCODONE (Roxicodone) 5 mg Tablet Take 1 tablet by mouth every 4 hours as needed for Pain. 5 tablet 07/04/2021 07/11/2021 nystatin (MYCOSTATIN) PowderIndications:Int ertrigo Apply topically 4 times daily. To skin fold rash as needed 60 g 10/24/2018 02/14/2023 documented as of this encounter Progress Notes * Mandi Mackenzie RN - 07/04/2021 1:13 PM EST Discharge instructions and medications reviewed with patient and escort. All questions answered andwritten copy sent home with patient. Patient ambulated to car for discharge accompanied by [facility] staff member. Drain teaching done. Has paperwork,extra supplies and prescription. documented in this encounter H&P Notes * Beau Torrez MD - 07/04/2021 10:36 AM EST Patient Name: Tiffanie Monreal Patient Age: 36 y.o. Birthdate: 1985 Admit date: 07/04/2021 Attending Physician: Beau Torrez MD Plastic Surgery H&P HPI: Tiffanie Monreal is a 36 y.o. female here for abdominal scar revision s/p panniculectomy with asymmetry. NO changes in H&P since clinic visit. Past Medical History: Diagnosis Date ??? Anxiety ??? Depression ??? Obesity Past Surgical History: Procedure Laterality Date ??? SECTION, LOW TRANSVERSE 2003 ??? SECTION, LOW TRANSVERSE 2007 ??? CHOLECYSTECTOMY, LAPAROSCOPIC ??? HYSTERECTOMY ??? PRO EXCISE EXCESS SKIN TISSUE, ABDOMEN N/A 01/03/2021 PANNICULECTOMY performed by Beau Torrez MD at [facility] OR ??? PRO LAP GASTRIC BYPASS/SHELBIE-EN-Y N/A 09/30/2018 @LAPAROSCOPIC GASTROPLASTY, (WRVU 29.4) performed by Jerica Dubose MD at [facility] OR ??? PRO UPPER GI ENDOSCOPY, DIAGNOSTIC N/A 09/30/2018 ENDOSCOPY, UPPER GI, DIAGNOSTIC, WITH OR WITHOUT SPECIMENS performed by Jerica Dubose MD at [facility] OR ??? PRO UPPER GI ENDOSCOPY, DIAGNOSTIC N/A 04/14/2020 EGD, UPPER GI ENDOSCOPY performed by Jerica Dubose MD at [facility] OR ??? TUBAL LIGATION Bilateral 2007 Social [...] Types: Cigarettes Quit date: 03/27/2008 Years since quittin.2 ??? Smokeless tobacco: Never Used Substance and Sexual Activity ??? Alcohol use: Yes Alcohol/week: 0.0 standard drinks Comment: once per month ??? Drug use: No ??? Sexual activity: Not on file Other Topics Concern ??? Exercise: Patient reported Yes ??? Abuse or Threat: Physical, Sexual, Verbal No Social History Narrative ??? Not on file Social Determinants of Health Financial Resource Strain: Not on file Food Insecurity: Not on file Transportation Needs: Not on file Physical Activity: Not on file Housing Stability: Not on file Allergies Allergen Reactions ??? Cough Syrup [Guaifenesin] Anaphylaxis ??? Spider Venom Other (See Comments) Ask patient. ??? Kiwi Other reaction(s): Swelling/Edema ??? Dextromethorphan Hbr Other reaction(s): Anaphylaxsis ??? Doxylamine Succinate Other reaction(s): Anaphylaxsis ??? Pseudoephedrine Hcl Other reaction(s): Anaphylaxsis No current facility-administered medications on file prior to encounter. Current Outpatient Medications on File Prior to Encounter Medication Sig Dispense Refill ??? UNABLE TO FIND 2 tablets daily. Med Name: Bariatric multivitamin ??? acetaminophen 500 mg Capsule Take by mouth 2 times daily. ??? traZODone (Desyrel) 50 mg Tablet TAKE ONE TABLET BY MOUTH AT BEDTIME, MAY INCREASE TO 2 TABLETSAFTER 4-5 DAYS IF TOLERABLE ??? oxyCODONE (Roxicodone) 5 mg Tablet Take 1-2 tablets by mouth every 4 hours as needed for Pain (For pain 4-7 give 5mg, for pain 8-10 give 10mg). (Patient not taking: Reported on 01/12/2021) 10 tablet 0 ??? nystatin (MYCOSTATIN) Powder Apply topically 4 times daily. To skin fold rash as needed (Patient not taking: Reported on 03/02/2021) 60 g 0 Examination: BP 126/65 Pulse 64 Temp 36.6 ??C (97.9 ??F) (Temporal) Resp 18 Ht 165.1 cm (5' 5) Wt 94.3 kg (208 lb) SpO2 97% BMI 34.61 kg/m?? Constitutional: No acute distress CV: RRR PUL: CTA sofie Abd: soft, non-tender, non-distended Excess skin R>>L with overhanging mild pannus on R, no rashes. Impression: Tiffanie Monreal 36 y.o. female patient with abdominal asymmetry s/p panniculectomy. Plan: Abdominal scar revision. Risk, benefits, alternative, complications of the procedure to include anesthesia plan and recoverywere discussed with the patient and informed consent obtained. Beau Torrez MD documented in this encounter Miscellaneous Notes * Brief Op Note - Beau Torrez MD - 07/04/2021 12:16 PM EST Brief Operative Note Patient Name: Tiffanie Monreal : [id number] MR#: [id number] Case Date: 07/04/2021 Surgeon: Surgeon(s) and Role: * Beau Torrez MD - Primary Preoperative diagnosis: abdominal scar asymmetry s/p panniculectomy Postoperative diagnosis: same Procedure(s) (LRB): Scar revision abdomen 40cm. Anesthesia: General anesthesia Findings: revision of panniculectomy scar Complications: none Estimated Blood Loss: * No values recorded between 07/04/2021 10:58 AM and 07/04/2021 12:13 PM * * No values recorded between 07/04/2021 10:58 AM and 07/04/2021 12:13 PM * Specimens removed during surgery: * No orders in the log * Fluids: Intraprocedure Crystalloid Total Intake Lactated Ringers 1000.00 mL Total Intake 1000 mL PRBCs: none (See Anesthesia Record/Report for Other Blood Products) Urine Output: (no urine output recorded) Drains: 1 drain Disposition: awakened from anesthesia, extubated and taken to the recovery room in a stable condition, having suffered no apparent untoward event. Condition: doing well without problems (Please see the Surgical Encounter Summary for any Implant and Specimen details pertinent to this patient.) Infection Bundle used? N/A Post-Op Plan: - Follow up in: 7-10 days with attending/Barbara/nurse/telehealth - Wound Check - Suture removal: None - Dressings: remove dressings - Drain removal when output is less than 30 ml per day x 2 days - Other coordinating appointments needed: 3-6 months with attending Future Appointments Date Time Provider Department Center 07/11/2021 8:20 AM Barbara Cardona APRN [facility] [place] [facility] [place] * Op Note - Beau Torrez MD - 07/04/2021 10:58 AM EST [facility] [place]ative Note Patient Name: Tiffanie Monreal : [id number] MR#: [id number] Case Date: 07/04/2021 Surgeon: Surgeon(s) and Role: * Beau Torrez MD - Primary * Maya James MD - Resident Preoperative diagnosis: abdominal asymmetry s/p panni Postoperative diagnosis: same Procedure: Abdominal scar revision, moderate closure 40cm. Anesthesia: General Estimated Blood Loss: * No values recorded between 07/04/2021 10:58 AM and 07/04/2021 12:13 PM * Specimens removed during surgery: None Drains: Drain/Device Site 07/04/21 1135 other (see comments) midline abdomen collapsible closed device (Active) Dressing Appearance dry;intact 07/04/21 1300 Drainage Characteristics/Odor serosanguineous 07/04/21 1300 Drainage Amount small 07/04/21 1300 Surgical Closure: Primary Closure - skin incision is completely closed without any wires, rinku, drains or other devices Disposition: awakened from anesthesia, extubated and taken to the recovery room in a stable condition, having suffered no apparent untoward event. Condition: doing well without problems (Please see the Surgical Encounter Summary for any Implant and Specimen details pertinent to this patient.) HPI/Surgical Indications: Abdominal wall asymmetry with R alexander abdomen with greater laxity and overhanging pannus. Procedure Description: Risks, benefits, alternatives of abdominal wall scar revision were discussed with the patient and informed consent obtained. She desired to proceed. In the preoperative area the abdominal was marked in the standing position we marked the approximate location of the new excision incision line and the tissue to be excised there is a small residual overhanging pannus on the right whereas the left was smooth in contour and therefore more tissue was marked for removal of the right and left. Patient was able to visualize and agree with these markings. She was subsequent back to the operating room placed supine operating table, and a general anesthetic was induced. The abdomen was prepped and draped into the field normal sterile fashion. Appropriate timeout procedures were performed. We then excised the area marked tissue was approximately 40 cm long 5 cm tall in the right tapering from right to left. Skin subcutaneous tissues down to the anterior fascia was excised en bloc. Hemostasis was assured with electrocautery. A drain was placed in the base of the wound extending to the left flank.The superior skin was slightly undermined advanced and the skin closed in layers. Repaired the Joselito's layer with 3-0 Vicryl deep dermal 3-0 Vicryl and finally a running subcuticular 4-0 Monocryl was used. After final closure of the skin incision drain was attached to suction minimal serosanguineous drainage was noted. Finally dressing was placed with a [place] dressings and abdominal binder. She was awakened extubated and delivered to PACU in stable condition. I was present for and performed her procedure with the resident. Infection Bundle used? No Attestation: Case Date: 07/04/2021 I was present and I participated during the entire procedure (does not need to include opening and closing). Beau Torrez MD 07/05/2021 documented in this encounter Plan of Treatment Upcoming Encounters Date Type Department Care Team (Late st Contact Info) Description 06/02/2024 8:00 AM EDT Office [place] [address] Julienne Lacey APRN [facility] [place] [address] 07/24/2024 1:30 PM EST Office Visit [place] [phone] Jenni Brennan MD [facility] DR [facility] [place] [address] documented as of this encounter Procedures Procedure Name Priority Date/Time Associated Diagnosis Comments Adjacent Tissue Transfer/Reargmt Trunk 10 Cm/< (02490) 07/04/2021 10:40 AM EST Surgery follow-up documented in this encounter Visit Diagnoses Diagnosis Surgery follow-up Follow-up examination, following unspecified surgery documented in this encounter Administered Medications Inactive Administered Medications - up to 3 most recent administrations Medication Order MAR Action Action Date Dose Rate Site lidocaine-EPINEPHrine (1% - 1:100,000) injection ONCE PRN, Starting on Sat07/04/21 at 1221, Until Sat07/04/21 at 1515, Intra-Operative (Intra-Procedure), Routine Given 07/04/2021 12:21 PM EST 10.5 mLs 19- Surgical Site oxyCODONE (Roxicodone) tablet 5 mg 5 mg, Oral, EVERY 4 HOURS PRN, Starting on Sat07/04/21 at 1227, Until Sat07/04/21 at 1515, Pain, Routine Given 07/04/2021 12:58 PM EST 5 mg documented in this encounter Active and Recently Administered Medications Times are shown in EST. PRN Medication Order 07/02/2021 07/03/2021 07/04/2021 lidocaine-EPINEPHrine (1% - 1:100,000) injection (CANCELED) ONCE PRN, Starting on Sat07/04/21 at 1221, Until Sat07/04/21 at 1515, Intra-Operative (Intra-Procedure), Routine 1221 (Given - Provid er: Beau Torrez MD) oxyCODONE (Roxicodone) tablet 5 mg 5 mg, Oral, EVERY 4 HOURS PRN, Starting on Sat07/04/21 at 1227, Until Sat07/04/21 at 1515, Pain, Routine 1258 (Given - Provid er: Mandi Mackenzie RN) documented in this encounter Care Teams Infant Babysitter Relationship Specialty Start Date End Date Kezia Aguirre MD [address] [place] [address] PCP - General Family Medicine 12/24/16 12/30/22 documented as of this encounter
--- OUTSIDE RECORDS SUMMARY | 2024-05-25 14:50 | XMS_ITS | Encounter Summary ---
Author Organization [facility] Address [facility] [place] [address] Care Team Providers Care Reception Name Role Phone Kezia Aguirre MD Primary Care Provider [phone] Reason for Visit * Auth/Cert Specialty Diagnoses / Procedures Referred By Contac t Referred To Contact Diagnoses panni Procedures PRO ADJ TISS XFER TRUNK <10SQCM ADJ.TISSUE TRANSFER, REARRANGEMENT, TRUNK,10SQ.CM OR LESS (WRVU 6.37) Referral ID Status Reason Start Date Expiration Date Visits Re quested Visits Authorized [id number] 1 1 Encounter Details Date Type Department Care Team (Latest Contact Info) Description 07/04/2021 8:46 AM EST - 07/04/2021 1:10 PM EST Hospital Encounter [place] [address] Beau Torrez MD [facility] [place] [address] Discharge Disposition: Home Social History Tobacco Use [...] Sign Reading Time Taken Comments Blood Pressure 132/76 07/04/2021 1:00 PM EST Pulse 83 07/04/2021 1:00 PM EST Temperature 36.9 ??C (98.4 ??F) 07/04/2021 12:[address] Respiratory Rate 18 07/04/2021 1:00 PM EST Oxygen Saturation 100% 07/04/2021 1:00 PM EST Inhaled Oxygen Concentration - - [...] good night sleep. Pain (short term and terminal operator) With any surgery there is some discomfort [...] about scheduling, please contact our administrative officesat [phone] For clinical questions, please call our nurses at [phone] Both offices are open Saturday thru Saturday 8a - 5p. With emergencies after hours, call the hospital rescue boat operator at [phone] and ask for the Plastic Surgery Resident [...] PANNICULECTOMY performed by Beau Torrez MD at [facility] OR ??? PRO LAP GASTRIC BYPASS/SHELBIE-EN-Y N/A 09/30/2018 @LAPAROSCOPIC GASTROPLASTY, (WRVU 29.4) performed by Jerica Dubose MD at [facility] OR ??? PRO UPPER GI ENDOSCOPY, DIAGNOSTIC N/A 09/30/2018 ENDOSCOPY, UPPER GI, DIAGNOSTIC, WITH OR WITHOUT SPECIMENS performed by Jerica Dubose MD at [facility] OR ??? PRO UPPER GI ENDOSCOPY, DIAGNOSTIC N/A 04/14/2020 EGD, UPPER GI ENDOSCOPY performed by Jerica Dubose MD at [facility] OR ??? TUBAL LIGATION Bilateral 2007 [...] Operative Note Patient Name: Tiffanie Monreal : [id number] MR#: [id number] Case Date: 07/04/2021 Surgeon: Surgeon(s) and Role: [...] Center 07/11/2021 8:20 AM Barbara Cardona APRN [facility] [place] [facility] 4M [facility] [place] * Op Note - Beau Torrez MD - 07/04/2021 10:58 AM EST [facility] [place] Operative Note Patient Name: Tiffanie Monreal : [id number] MR#: [id number] Case Date: 07/04/2021 Surgeon: Surgeon(s) and Role: [...] 8:00 AM EDT Office [place] [address] Julienne Lacey APRN [facility] [place] [address] 07/24/2024 1:30 PM EST Office Visit [place] [phone] Jenni Brennan MD [facility] [address] [facility] [address] documented as of this encounter Procedures Procedure Name Priority Date/Time Associated Diagnosis Comments Adjacent Tissue Transfer/Reargmt Trunk 10 Cm/< (25454) 07/04/2021 10:40 AM EST Surgery follow-up documented in this encounter Visit Diagnoses Not on filedocumented in this encounter Administered Medications Inactive Administered Medications - up to 3 most recent administrations Medication Order MAR Action Action Date Dose Rate Site oxyCODONE (Roxicodone) tablet 5 mg 5 [...] RN) documented in this encounter Care Teams Reception Relationship Specialty Start Date End Date Kezia Aguirre MD [address] [place] [address] PCP - General Family Medicine 12/24/16 12/30/22 documented as of this encounter
--- OUTSIDE RECORDS SUMMARY | 2024-05-25 14:50 | XMS_ITS | Encounter Summary ---
Author Organization [facility] [place] [address] Care Team Providers Care Medical Photographer Name Role Phone Kezia Aguirre MD Primary Care Provider [phone] Reason for Referral * Consultation (Routine) - Closed Specialty Diagnoses / Procedures Referred By Sayda antoine Referred To Contact Plastic Surgery Diagnoses Pannus, abdominal Luz Vinson APRN [facility] [place] [address] [facility] [place] [address] [address] Referral ID Status Reason Start Date Expiration Date V isits Requested Visits Authorized [id number] Closed Consult, Test & Treat 11/08/2020 11/08/2021 1 1 Encounter Details Date Type Department Care Team (Late st Contact Info) Description 11/08/2020 Orders Only [place] [address] Luz Vinson APRN [facility] [place] [address] Pannus, abdominal Social History Tobacco Use Types Packs/Day Years [...] 8:00 AM EDT Office [place] [address] Julienne Lacey APRN [facility] [place] [address] 07/24/2024 1:30 PM EST Office Visit [facility] [place] [phone] Jenni Brennan MD [facility] [address] [place] [address] Scheduled Referrals Name Type Priority Associated Diagnoses Orde r Schedule Referral to Plastic Surgery Outpatient Referral Routine Pannus, abdominal Ordered: 11/08/2020 documented as of this encounter Visit Diagnoses Diagnosis Pannus, abdominal Localized adiposity documented in this encounter Care Teams Medical Photographer Relationship Specialty Start Date End Date Kezia Aguirre MD [address] [place] [address] PCP - General Family Medicine 12/24/16 12/30/22 documented as of this encounter
--- OUTSIDE RECORDS SUMMARY | 2024-05-25 14:50 | XMS_ITS | Encounter Summary ---
Author Organization On License Of [facility] Address [facility] [place] [address] Care Team Providers Care Mill Manager Name Role Phone Kezia Aguirre MD Primary Care Provider Reason for Visit * Auth/Cert Specialty Diagnoses / Procedures Referred By Contac t Referred To Contact Diagnoses panni Procedures PRO ADJ TISS XFER TRUNK <10SQCM ADJ.TISSUE TRANSFER, REARRANGEMENT, TRUNK,10SQ.CM OR LESS (WRVU 6.37) Referral ID Status Reason Start Date Expiration Date Visits Re quested Visits Authorized [id number] 1 1 Encounter Details Date Type Department Care Team (Late st Contact Info) Description 07/04/2021 10:40 AM EST Anesthesia Event [place] [address] Chace Mao MD [facility] [place] [address] Liane Steel MD [facility] [place] [address] Anesthesia Record Procedure Summary Procedure Name Responsible Anesthesiologist Anesthesia Start Time Anesthesia Stop Time ADJ.TISSUE TRANSFER, REARRANGEMENT, TRUNK,10SQ.CM OR LESS (WRVU 6.37) (Right: Abdomen) Chace Mao MD 07/04/21 1040 07/04/21 1226 Events Date Time Event Comment 07/04/2021 0928 1040 AN Verify 1040 Start 1040 An Start Data 1046 An Induction 1047 An Intubation 1049 Anesthesia Ready 1215 Extubation/LMA Out 1220 an stop data 1226 Recovery or ICU Handoff Corine ent care was transferred to the destination unit staff after review of the patient's medical history, current anesthetic/surgical status and plan, according to the Provider Handoff Checklist. 1226 Stop Meds Name Total Propofol 200 mg fentaNYL 200 mcg Midazolam 2 mg IV Lidocaine 50 mg Dexamethasone 8 mg Ondansetron 8 mg Dexmedetomidine 20 mcg Lactated Ringers 1,000 mL * Agents Name O2 Air N2O Sevoflurane (et) * Blood No blood administrations on file. Lines, Drains, and Airways Type Details Placement Removal Incision 01/03/21; 1352; anterior, transverse; abdomen; 04/09/22 (LDA cleanup utility RA#[id number]); 1715 (LDA cleanup utility RA#[id number]) 01/03/21 1352 by Manuel Smith 04/09/22 1715 by Sadie Mcdonald (RETIRED) Peripheral IV Line - Single Lumen 07/04/21; 0922; metacarpal vein (top of hand), left; [id number] catheter system; 20 gauge; distraction, intradermal injection, tolerated well, appears comfortable; 07/04/21; 1312 07/04/21 0922 by Amy Hendrix RN 07/04/21 1312 by Mandi Mackenzie RN Supraglottic Mask Ventilation: Ea sy (1); LMA Type: iGel; LMA Size: 3; Removal Date: 07/04/21; Removal Time: 1215 07/04/21 1052 by Kristen Mcintosh MD 07/04/21 1215 by Kristen Mcintosh MD Incision 07/04/21; 1058; abdomen; horizontal; LDA not present upon assessment; 07/18/23; 32 07/04/21 1058 by Belem Page RN 07/18/23 0732 by Kezia Sheppard RN Drain/Device Site 07/04/21; 1135; othe r (see comments) (center); midline; abdomen; collapsible closed device; Drain not present upon arrival to OR suite; 07/18/23; 73107/04/21 1135 by Belem Page RN 07/18/23 0732 by Kezia Sheppard RN documented in this encounter Social History [...] OR Notes * Anesthesia Postprocedure Evaluation - Chace Mao MD - 07/11/2021 12:17 PM EST Department of Anesthesiology Post-procedure Note Patient: Tiffanie Monreal Procedure Summary Date: 07/04/21 Room / Location: [facility] [place] [address] [place] [address] Anesthesia Start: 1040 Anesthesia Stop: 1226 Procedure: ADJ.TISSUE TRANSFER, REARRANGEMENT, TRUNK,10SQ.CM OR LESS (WRVU 6.37) (Right Abdomen) Diagnosis: Surgery follow-up (panni) Surgeons: Beau Torrez MD Responsible Provider: Chace Mao MD Anesthesia Type: general ASA Status: 2 All Anesthesia Providers: Anesthesiologist: Chace Mao MD Enterprise Cloud Architect: Kristen Mcintosh MD Vitals Value Taken Time BP 132/76 07/04/21 1300 Temp 36.9 ??C (98.4 ??F) 07/04/21 1222 Pulse 83 07/04/21 1300 Resp 18 07/04/21 1300 SpO2 100 % 07/04/21 1300 Pain Level 2 07/04/21 1300 Patient Location: PACU/[facility] Level of Consciousness: Awake and Alert Pain Management: Satisfactory Analgesia PONV: None Cardiovascular Status: At Baseline and Hemodynamically Stable Respiratory Status: At Baseline and Room Air Postoperative Fluid Status: Intravascular EUvolemia Possible Anesthetic Complications: NONE apparent at time of evaluation Final Primary Anesthesia Type: General (The anesthetic type performed was the same as planned.) Comments: Chace Mao MD * Anesthesia Preprocedure Evaluation - Kristen Mcintosh - 07/03/2021 9:06 PM EST Pre-Anesthesia Evaluation for: Tiffanie Monreal a 36 y.o. female. Procedure(s): PANNICULECTOMY Patient Active Problem List Diagnosis ??? Abdominal pannus Added automatically from request for surgery [id number] ??? 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 Upper airway resistance syndrome with sleep fragmentation A. PSG done on 09/14/14: AHI 2.5/ hour. REM AHI 1.3/ hour. Majority of events seen in supine position. Vasile oxygen saturation 88%. Mean oxygen saturation 93%. Underestimation of severity due to minimal supine sleep. Recommendations: patient can be started on CPAP therapy with mask of choice. B[facility] follow up at [facility] on 10/11/14: same as PSG ??? Insomnia ??? Major depressive disorder History of psychiatric admission 09/2013 for SI at [facility]. Not currently taking antidepressants at of January 2015 ??? Anxiety disorder ??? Breast hypertrophy Past Medical History: Diagnosis Date ??? Anxiety ??? Depression ??? Obesity Past Surgical History: Procedure Laterality Date ??? SECTION, LOW TRANSVERSE 2003 ??? SECTION, LOW TRANSVERSE 2007 ??? CHOLECYSTECTOMY, LAPAROSCOPIC ??? HYSTERECTOMY ??? PRO EXCISE EXCESS SKIN TISSUE, ABDOMEN N/A 01/03/2021 PANNICULECTOMY performed by Beau Torrez MD at [facility] OR ??? PRO LAP GASTRIC BYPASS/SHELBIE-EN-Y N/A 09/30/2018 @LAPAROSCOPIC GASTROPLASTY, (WRVU 29.4) performed by Jerica Dubose MD at [facility] OR ??? PRO UPPER GI ENDOSCOPY, DIAGNOSTIC N/A 09/30/2018 ENDOSCOPY, UPPER GI, DIAGNOSTIC, WITH OR WITHOUT SPECIMENS performed by Jerica Dubose MD at [facility] OR ??? PRO UPPER GI ENDOSCOPY, DIAGNOSTIC N/A 04/14/2020 EGD, UPPER GI ENDOSCOPY performed by Jerica Dubose MD at [facility] OR ??? TUBAL LIGATION Bilateral 2007 Social History Tobacco Use ??? Smoking status: Former Smoker Packs/day: 0.50 Years: 2.00 Pack years: 1.00 Types: Cigarettes Quit date: 03/27/2008 Years since quittin.2 ??? Smokeless tobacco: Never Used Substance Use Topics ??? Alcohol use: Yes Alcohol/week: 0.0 standard drinks Comment: once per month Social History Substance [...] Physical Exam: Preprocedure Vitals Current as of 01/03/21 1118 No BP, pulse, respiration, SpO2, or temperature recorded. Height: 165.1 cm (5' 5) (11/10/20) Weight: 98.9 kg (218 lb) (11/10/20) BMI: 36.27 IBW: 57 kg (125 lb 10.6 oz) Airway Assessment: Mallampati: I TM distance: >3 FB Neck ROM: full Cardiovascular Assessment: Rhythm: regular Rate: normal Pulmonary Assessment: unlabored breathing Dental Assessment: (+) upper dentures and lower dentures Comment: Partial lower Misc Assessment: Patient is wearing No contact(s). IV access: Peripheral line Last Filed Perioperative Cognitive Screening None Anesthesia Plan: ASA 2 general, with a(n) intravenous induction Prelim: Tiffanie Monreal is a 35 y.o. female (BMI 35) with a hx significant for depression, obesity s/p RnY 2019, and prior history of ESTHELA that has now improved with weight loss here for rearrangement after previous panniculectomy. Previously tolerated anesthesia without issue Plan: GA, LMA, standard asa monitoring Region - Other Informed Consent: Anesthetic plan and risks discussed with patient and spouse. Plan discussed with FLOORING MECHANIC. Anesthesia Screening documented in this encounter Plan of Treatment Upcoming Encounters Date Type Department Care Team (Late st Contact Info) Description 06/02/2024 8:00 AM EDT Office [place] [address] Julienne Lacye APRN [facility] [place] [address] 07/24/2024 1:30 PM EST Office Visit Weight and Wellness at [facility] [place] [phone] Jenni Brennan MD [facility] [address] [facility] [place] [address] documented as of this encounter Visit Diagnoses Not on filedocumented in this encounter Administered Medications Inactive Administered Medications - up to 3 most recent administrations Medication Order MAR Action Action Date Dose Rate Site dexamethasone (Decadron) injection Intravenous, PRN, Starting on Sat07/04/21 at 1104, Until Sat07/04/21 at 1226, Anesthesia Intra-op, Routine Given 07/04/2021 11:04 AM EST 8 mg dexmedetomidine (Precedex) (4 mcg/mL) bolus injection (Anesthsia) Intravenous, PRN, Starting on Sat07/04/21 at 1133, Until Sat07/04/21 at 1226, Anesthesia Intra-op, Routine Given 07/04/2021 12:02 PM EST 4 mcg Given 07/04/2021 11:44 AM EST 8 mcg Given 07/04/2021 11:33 AM EST 8 mcg fentaNYL (pf) (50 mcg/mL) multi-dose injection Intravenous, PRN, Starting on Sat07/04/21 at 1102, Until Sat07/04/21 at 1226, Anesthesia Intra-op, Routine Given 07/04/2021 12:06 PM EST 50 mcg Given 07/04/2021 11:55 AM EST 50 mcg Given 07/04/2021 11:02 AM EST 100 mcg lactated ringers infusion Intravenous, CONTINUOUS PRN, Starting on Sat07/04/21 at 1044, Until Sat07/04/21 at 1226, Anesthesia Intra-op New Bag 07/04/2021 10:44 AM EST lidocaine (pf) (Xylocaine) (20 mg/mL) 2% injection syringe Intravenous, PRN, Starting on Sat07/04/21 at 1046, Until Sat07/04/21 at 1226, Anesthesia Intra-op, Routine Given 07/04/2021 10:46 AM EST 50 mg midazolam (pf) (Versed) (1 mg/mL) multi-dose injection Intravenous, PRN, Starting on Sat07/04/21 at 1043, Until Sat07/05/21 at 1428, Anesthesia Intra-op, Routine Given 07/04/2021 10:43 AM EST 2 mg ondansetron (pf) (Zofran) (2 mg/mL) injection Intravenous, PRN, Starting on Sat07/04/21 at 1155, Until Sat07/04/21 at 1226, Anesthesia Intra-op, Routine Given 07/04/2021 11:55 AM EST 8 mg propofoL (Diprivan) 10 mg/mL bolus injection (Anesthesia) Intravenous, PRN, Starting on Sat07/04/21 at 1046, Until Sat07/04/21 at 1226, Anesthesia Intra-op Given 07/04/2021 10:46 AM EST 200 mg documented in this encounter Care Teams Mill Manager Relationship Specialty Start Date End Date Kezia Aguirre MD [address] [place] [id number] PCP - General Family Medicine 12/24/16 12/30/22 documented as of this encounter
--- OUTSIDE RECORDS SUMMARY | 2024-05-25 14:50 | XMS_ITS | Encounter Summary ---
Author Organization Formerly [facility] [place] [address] Care Team Providers Care Director Of Student Aid Name Role Phone Saumya Felipe APRN Primary Care Provider [phone] Encounter Details Date Type Department Care Team (Late st Contact Info) Description 04/25/2023 Telephone General Surgery at [facility] [place] [phone] Liane Cuevas RN Social History Tobacco Use Types Packs/Day Years [...] encounter Miscellaneous Notes * Telephone Encounter - Liane Cuevas RN - 04/25/2023 8:35 AM EDT Nursing Triage - Phone Note CALLER: Pt CHIEF COMPLAINT: Abdominal Pain SUBJECTIVE- I feel like I'm being ripped in half PERTINENT PAST SURGICAL HISTORY: 09/30/18: Gastric bypass, Dr Dubose S/p latasha prior, unknown date NURSING ASSESSMENT: Location: RLQ, across whole lower abdomen Duration: Started ~2 months ago Characteristics: Cramping, sharp pains Aggravating factors: Not sure, sometimes worse after eating Relieving factors: None Severity: Severe at times, waxes and wanes Pt reports lower abdominal pain that began about 2 months ago and has gotten worse with time. She has sought care at [facility] where there was initially concern for appendicitis, which was ruled out with CT, per pt report. She describes sharp cramping in her lower abdomen, worse in the RLQ, that comes and goes. Last night her pain was very severe, was in a position on the bathroom floor. Sometimes has nausea during episodes of pain, sometimes also will feel dizzy/lightheaded during severe pain(was lightheaded and nauseated last night). Sometimes has a low grade fever (last a couple days ago). Bowels range from constipation to diarrhea, and she has seen blood in her stools at times of const ipation. She thinks she last had a BM 1-2 days ago. INTERVENTION/PLAN/ FOLLOW UP: Will discuss with team and get back to pt with plan. Called patient to follow up on phone call with RN above. Episodes of pain started 1-2 months ago. Has had one ED visit thus far in March at [facility] (CT ruled out appendicitis). Pain is constant but waxes and wanes. Severe pain in 2 episodes thus far (RLQ the first time, across the whole abdomen last night). Pain last night was rated 11/10 and described as being ripped in half. Severe pain lasted about 1 hour. Severe pain was accompanied by nausea and dry heaves (hadn't really eaten). Endorses constipation yesterday, no BM yet. Last BM the day before yesterday. Pain has improved, currently rated 6-7/10. Able to tolerate fluids but hasn't tried to eat anything. Patient is s/p cholecystectomy. A/P: Patient s/p RNY with 2 months of abdominal pain as above, with ddx including internal hernia. -Recommend Miralax clean out and daily maintenance to manage constipation (instructions sent on My DH). -Will obtain CT images from [facility] for surgeon's review. -Reviewed ED precautions (if severe pain patient aware we advise ED at [facility]). -Questions encouraged and answered. documented in this encounter Plan of Treatment Upcoming Encounters Date Type Department Care Team (Late st Contact Info) Description 06/02/2024 8:00 AM EDT Office [place] [phone] Julienne Lacey APRN [facility] [place] [address] 07/24/2024 1:30 PM EST Office Visit [place] [address] Jenni Brennan MD [facility] [address] [facility] [address] documented as of this encounter Visit Diagnoses Not on filedocumented in this encounter Care Teams Director Of Student Aid Relationship Specialty Start Date End Date Saumya Felipe APRN [address] [place] [address] PCP - General Family Medicine 12/31/22 documented as of this encounter
--- OUTSIDE RECORDS SUMMARY | 2024-05-25 14:50 | XMS_ITS | Encounter Summary ---
Author Organization [facility] [place] [address] Care Team Providers Care Machinist Job Setter Name Role Phone Kezia Aguirre MD Primary Care Provider [phone] Encounter Details Date Type Department Care Team (Late st Contact Info) Description 12/29/2020 [place] [phone] Grecia Cruz Social History Tobacco Use Types Packs/Day Years [...] encounter Miscellaneous Notes * Telephone Encounter - Grecia Cruz - 12/29/2020 11:41 AM EDT Good morning: Telephone call placed to schedule covid 19 testing with patient. Ordering provider: Dr. Beau Torrez Testing Facility: [place], [place] FAX: [phone] Date of Testin12/30/20 Time of Testing: TBD Symptoms: Pre OP Is this the first test for Covid 19 No If no, please list date of previous test, result, and type of test (Molecular, Antigen, Antibody orunknown):October, [facility], Resides in congregate care setting No Employee or Household Member of Employee No Healthcare Worker No documented in this encounter Plan of Treatment Upcoming Encounters Date Type Department Care Team (Late st Contact Info) Description 06/02/2024 8:00 AM EDT Office [place] [phone] Julienne Lacey APRN [facility] [place] [address] 07/24/2024 1:30 PM EST Office Visit [place] [phone] Jenni Brennan MD [facility] [address] [place] [address] documented as of this encounter Visit Diagnoses Not on filedocumented in this encounter Care Teams Machinist Job Setter Relationship Specialty Start Date End Date Kezia Aguirre MD [address] [place] [address] PCP - General Family Medicine 12/24/16 12/30/22 documented as of this encounter
--- OUTSIDE RECORDS SUMMARY | 2024-05-25 14:50 | XMS_ITS | Encounter Summary ---
Author Organization [facility] Address [facility] [place] [address] Care Team Providers Care Compressor House Operator Name Role Phone Kezia Aguirre MD Primary Care Provider [phone] Reason for Visit * Auth/Cert Specialty Diagnoses / Procedures Referred By Contesdras t Referred To Contact Diagnoses pannus Procedures PRO EXCISE EXCESS SKIN TISSUE, ABDOMEN PANNICULECTOMY Referral ID Status Reason Start Date Expiration Date Visits Re quested Visits Authorized [id number] 1 1 Encounter Details Date Type Department Care Team (Late st Contact Info) Description 01/03/2021 1:26 PM EDT Anesthesia Event [place] [address] Vel Warren MD [facility] [place] [address] Anesthesia Record Procedure Summary Procedure Name Responsible Anesthesiologist Anesthesia Start Time Anesthesia Stop Time PANNICULECTOMY (WRVU 17.11) (Abdomen) Vel Warren MD 01/03/21 1326 01/03/21 1617 Events Date Time Event Comment 01/03/2021 1120 1326 Start 1329 AN Verify 1329 An Start Data 1334 An Induction 1339 An Intubation 1342 Anesthesia Ready 1351 Procedure Start 1503 Break/Relief In I assumed ca re for Break Relief before which we: 1. Identified the patient 2. Identified the responsible provider(s) 3. Reviewed the pertinent medical history 4. Discussed the surgical plan and course 5. Reviewed intra-op anesthesia management and issues during anesthesia 6. Set expectations for the relief (and/or post-procedure) period 7. Allowed opportunity for questions and acknowledgement of understanding Grecia Mullen CRNA 1518 Break/Relief Out 1606 Extubation/LMA Out Patient t aking adequate tidal volumes (>300ml), respiratory rate regular (10-14). Opens eyes to command. Oropharynx suctioned, ETT removed, spontaneous ventilations maintained. 1608 an stop data 1614 Recovery or ICU Handoff Corine ent care was transferred to the destination unit staff after review of the patient's medical history, current anesthetic/surgical status and plan, according to the Provider Handoff Checklist. 1617 Stop Patient brought to recovery with 8L/min O2 via face mask. Spontaneous ventilations maintained. Patient opening eyes to voice, resting comfortably. Meds Name Total Midazolam 2 mg fentaNYL 100 mcg IV Lidocaine 100 mg Propofol 250 mg Rocuronium 50 mg Ondansetron 8 mg Dexamethasone 8 mg Neostigmine 3 mg Glycopyrrolate 0.4 mg Dexmedetomidine 20 mcg Propofol INF 714.87 mg HYDROmorphone 1 mg Lactated Ringers 1,100 mL * Agents Name O2 Air N2O Sevoflurane (et) * Blood No blood administrations on file. Lines, Drains, and Airways Type Details Placement Removal (RETIRED) Peripheral IV Line - Single Lumen 01/03/21; 1209; cephalic vein (lateral side of arm), right; [id number] catheter system; Anatomical Landmarks; 22 gauge; Sanna Ag RN; intradermal injection, distraction, tolerated well, appears comfortable; 1; metacarpal vein (top of hand), right; 01/04/21; 0824 01/03/21 1209 by Sanna Ag RN 01/04/21 0824 by Joe Ferreira RN ETT Mask Ventilation: Ea sy (1); ETT Type: Cuffed, Oral; ETT Size: 7.5 mm; Mac Blade: 3; Notes: Asleep, Pre-O2, Stylette; Attempts: 1; Laryngoscopy Grade: 1; ETT Placement Verified By: Auscultation, Capnometry; Secured at Teeth: 20 cm; Inserted by: Jason Hendrix CRNA; Removal Date: 01/03/21; Removal Time: 1606 01/03/21 1339 by Soumya Hendrix CRNA 01/03/21 1606 by Soumya Hendrix SUPPLY TEACHER Incision 01/03/21; 1352; anterior, transverse; abdomen; 04/09/22 (LDA cleanup utility RA#[id number]); 1715 (LDA cleanup utility RA#[id number]) 01/03/21 1352 by Manuel Smith 04/09/22 1715 by Sadie Mcdonald Drain/Device Site 01/03/21; 1524; Righ t; anterior; hip; collapsible closed device (19 fr kath drain); 07/04/21; 92101/03/21 1524 by Manuel Smith 07/04/21 0922 by Amy Hendrix RN Drain/Device Site 01/03/21; 1524; Left ; anterior; hip; collapsible closed device (19 fr kath drain); 07/04/21; 92101/03/21 1524 by Manuel Smith 07/04/21 0922 by Amy Hendrix RN documented in this encounter Social History [...] Postprocedure Evaluation - Vel Warren MD - 01/04/2021 4:10 PM EDT Department of Anesthesiology Post-procedure Note Patient: Tiffanie Monreal Procedure Summary Date: 01/03/21 Room / Location: [facility] OR [facility] MAIN OR Anesthesia Start: 1326 Anesthesia Stop: 1617 Procedure: PANNICULECTOMY (N/A Abdomen) Diagnosis: Abdominal pannus (pannus) Surgeons: Beau Torrez MD Responsible Provider: Vel Warren MD Anesthesia Type: general ASA Status: 2 All Anesthesia Providers: Anesthesiologist: Vel Warren MD SUPPLY TEACHER: Soumya Hendrix CRNA Vitals Value Taken Time BP 117/67 01/03/21 1715 Temp 36.6 ??C (97.9 ??F) 01/03/21 1715 Pulse 74 01/03/21 1800 Resp 16 01/03/21 1800 SpO2 96 % 01/03/21 1937 Pain Level 3 01/03/21 1900 Vitals shown include unvalidated device data. Patient Location: Floor Level of Consciousness: Awake and Alert Pain Management: Pain Being Addressed PONV: None Cardiovascular Status: At Baseline and Hemodynamically Stable Respiratory Status: At Baseline and Room Air Postoperative Fluid Status: Intravascular EUvolemia Possible Anesthetic Complications: NONE apparent at time of evaluation Final Primary Anesthesia Type: General (The anesthetic type performed was the same as planned.) Comments: * Anesthesia Preprocedure Evaluation - Vel Warren MD - 01/03/2021 11:18 AM EDT Pre-Anesthesia Evaluation for: Tiffanie Monreal a 35 y.o. female. Procedure(s): PANNICULECTOMY Patient Active Problem List Diagnosis ??? Abdominal pannus Added automatically from request for surgery [id number] ??? Bariatric surgery status: S/P RNY gastric [...] choice. [facility] follow up at [facility] on 10/11/14: same as PSG ??? Insomnia ??? Major depressive disorder History of psychiatric admission 09/2013 for SI at [facility]. Not currently taking antidepressants at of [...] 29.4) performed by Jerica Dubose MD at [facility] MAIN OR ??? PRO UPPER GI ENDOSCOPY, DIAGNOSTIC N/A 09/30/2018 ENDOSCOPY, UPPER GI, DIAGNOSTIC, WITH OR WITHOUT SPECIMENS performed by Jerica Dubose MD at [facility] OR ??? PRO UPPER GI ENDOSCOPY, DIAGNOSTIC N/A 04/14/2020 EGD, UPPER GI ENDOSCOPY performed by Jerica Dubose MD at [facility] OR ??? TUBAL LIGATION Bilateral 2007 Social History Tobacco Use ??? Smoking status: Former Smoker Packs/day: 0.50 Years: 2.00 Pack years: 1.00 Types: Cigarettes Quit date: 03/27/2008 Years since quittin.7 ??? Smokeless tobacco: Never Used Substance Use Topics ??? Alcohol use: Yes Types: 1 Glasses of wine, 1 Cans of beer per week Social History Substance and Sexual Activity Drug Use No Allergies Allergen Reactions ??? Cough Syrup [Guaifenesin] Anaphylaxis ??? Spider Venom Other (See Comments) Ask patient. Medications: MAR and/or home medications have been [...] ASA 2 general, with a(n) intravenous induction GA, OETT, routine monitors Region - Other Informed Consent: Anesthetic plan and risks discussed with patient and spouse. Plan discussed with SUPPLY TEACHER. Anesthesia Screening documented in this encounter Miscellaneous Notes * Addendum Note - Vel Warren MD - 01/04/2021 4:10 PM EDT Addendum created 01/04/21 1610 by Vel Warren MD Clinical Note Signed documented in this encounter Plan of Treatment Upcoming Encounters Date Type Department Care Team (Late st Contact Info) Description 06/02/2024 8:00 AM EDT Office [place] [phone] Julienne Lacey APRN [facility] [place] [address] 07/24/2024 1:30 PM EST Office Visit [place] [phone] Jenni Brennan MD [facility] [address] [facility] [address] documented as of this encounter Visit Diagnoses Not on filedocumented in this encounter Administered Medications Inactive Administered Medications - up to 3 most recent administrations Medication Order MAR Action Action Date Dose Rate Site dexamethasone (Decadron) injection Intravenous, PRN, Starting on Sat01/03/21 at 1344, Until Sat01/03/21 at 1618, Anesthesia Intra-op, Routine Given 01/03/2021 1:44 PM EDT 8 mg dexmedetomidine (Precedex) (4 mcg/mL) bolus injection (Anesthsia) Intravenous, PRN, Starting on Sat01/03/21 at 1356, Until Sat01/03/21 at 1618, Anesthesia Intra-op, Routine Given 01/03/2021 2:30 PM EDT 4 mcg Given 01/03/2021 2:03 PM EDT 8 mcg Given 01/03/2021 1:56 PM EDT 8 mcg fentaNYL (pf) (50 mcg/mL) multi-dose injection Intravenous, PRN, Starting on Sat01/03/21 at 1350, Until Sat01/03/21 at 1618, Anesthesia Intra-op, Routine Given 01/03/2021 2:05 PM EDT 50 mcg Given 01/03/2021 1:50 PM EDT 50 mcg glycopyrrolate (Robinul) (0.2 mg/mL) multi-dose injection Intravenous, PRN, Starting on Sat01/03/21 at 1544, Until Sat01/03/21 at 1618, Anesthesia Intra-op, Routine Given 01/03/2021 3:44 PM EDT 0.4 mg HYDROmorphone (Dilaudid) (2 mg/mL) multi-dose injection solution Intravenous, PRN, Starting on Sat01/03/21 at 1407, Until Sat01/03/21 at 1618, Anesthesia Intra-op, Routine Given 01/03/2021 3:50 PM EDT 0.2 mg Given 01/03/2021 2:30 PM EDT 0.4 mg Given 01/03/2021 2:07 PM EDT 0.4 mg lactated ringers infusion Intravenous, CONTINUOUS PRN, Starting on Sat01/03/21 at 1326, Until Sat01/03/21 at 1618, Anesthesia Intra-op New Bag 01/03/2021 3:30 PM EDT New Bag 01/03/2021 1:26 PM EDT lidocaine (pf) (Xylocaine) (20 mg/mL) 2% injection syringe Intravenous, PRN, Starting on Sat01/03/21 at 1334, Until Sat01/03/21 at 1618, Anesthesia Intra-op, Routine Given 01/03/2021 1:34 PM EDT 100 mg midazolam (pf) (Versed) (1 mg/mL) multi-dose injection Intravenous, PRN, Starting on Sat01/03/21 at 1326, Until Sat01/03/21 at 1618, Anesthesia Intra-op, Routine Given 01/03/2021 1:29 PM EDT 1 mg Given 01/03/2021 1:26 PM EDT 1 mg neostigmine (Bloxiver) (1 mg/mL) injection Intravenous, PRN, Starting on Sat01/03/21 at 1544, Until 01/03/21 at 1618, Anesthesia Intra-op, Routine Given 01/03/2021 3:44 PM EDT 3 mg ondansetron (pf) (Zofran) (2 mg/mL) injection Intravenous, PRN, Starting on 01/03/21 at 1547, Until 01/03/21 at 1618, Anesthesia Intra-op, Routine Given 01/03/2021 3:47 PM EDT 8 mg propofoL (Diprivan) 10 mg/mL bolus injection (Anesthesia) Intravenous, PRN, Starting on e 01/03/21 at 1334, Until 01/03/21 at 1618, Anesthesia Intra-op Given 01/03/2021 1:39 PM EDT 50 mg Given 01/03/2021 1:34 PM EDT 200 mg propofoL (Diprivan) infusion Intravenous, CONTINUOUS PRN, Starting on e 01/03/21 at 1340, Until Sat01/03/21 at 1618, Anesthesia Intra-op, Routine New Bag 01/03/2021 1:40 PM EDT 50 mcg/kg/min 30.42 mL/hr rocuronium (Zemuron) (10 mg/mL) multi-dose injection Intravenous, PRN, Starting on e 01/03/21 at 1335, Until e 01/03/21 at 1618, Anesthesia Intra-op, Routine Given 01/03/2021 1:35 PM EDT 50 mg documented in this encounter Care Teams Compressor House Operator Relationship Specialty Start Date End Date Kezia Aguirre MD [address] [place] [address] PCP - General Family Medicine 12/24/16 12/30/22 documented as of this encounter
--- OUTSIDE RECORDS SUMMARY | 2024-05-25 14:50 | XMS_ITS | Encounter Summary ---
Author Organization [facility] [place] [address] Care Team Providers Care Senior Catering Sales Manager Name Role Phone Saumya Felipe APRN Primary Care Provider [phone] Encounter Details Date Type Department Care Team (Late st Contact Info) Description 03/14/2023 Ancillary Procedure Radiology Library at [facility] [place] [phone] Jerica Dubose MD [facility] [place] [address] Social History Tobacco Use Types Packs/Day Years [...] 8:00 AM EDT Office [place] [phone] Julienne Lacey APRN [facility] [place] [address] 07/24/2024 1:30 PM EST Office [place] [address] Jenni Brennan MD [facility] [address] [place] [address] documented as of this encounter Procedures Procedure Name Priority Date/Time Associated Diagnosis Comments FILM LIBRARY STORAGE ONLY CT ABDOMEN AND PELVIS Routine 03/14/2023 12:00 AM EDT documented in this encounter Results * Film Library- Storage Only CT Abdomen & Pelvis (03/14/2023 12:00 AM EDT) Narrative [facility] - 04/25/2023 1:31 PM EDT This exam is auto-finalizing. It's purpose is for storage only. Jerica Dubose MD IMG FILM LIBRARY ORD ERABLES Performing Organization Address City/State/[facility] Co de Phone Number [place], [place] documented in this encounter Visit Diagnoses Not on filedocumented in this encounter Care Teams Senior Catering Sales Manager Relationship Specialty Start Date End Date Saumya Felipe APRN [address] [place] [address] PCP - General Family Medicine 12/31/22 documented as of this encounter
--- OUTSIDE RECORDS SUMMARY | 2024-05-25 14:50 | XMS_ITS | Encounter Summary ---
Author Organization [facility] [place] [address] Care Team Providers Care Dental Lab Technician Name Role Phone Saumya Felipe APRN Primary Care Provider [phone] Reason for Visit * Reason Comments Follow-up Rediscuss thighplast y Encounter Details Date Type Department Care Team (Late st Contact Info) Description 02/14/2023 8:00 AM EDT Office [place] [address] Beau Torrez MD [facility] [place] [address] Excessive skin and subcutaneous tissue Social History [...] - - Weight 111.6 kg (246 lb) 02/14/2023 7:56 AM EDT Height 165.1 cm (5' 5) 02/14/2023 7:56 AM EDT Body Mass Index 40.94 02/14/2023 7:56 AM EDT documented in this encounter Patient Instructions * Patient Instructions* Radha Dukes CCMA - 02/14/2023 8:00 AM EDT Preoperative Instructions You have been scheduled to have plastic surgery. The instructions below are specific to your procedure. Two Weeks prior to Surgery Stop Vitamin E, Garlic supplements, Ginseng, Fish Oil tablets, Ginkgo and George's Wort and any other herbals. You may resume taking 48 hours after surgery. YOU DO NOT NEED TO STOP any aspirin or ibuprofen products before your surgery. If you need medication for pain, you may take Tylenol or extra strength Tylenol during this two week period. Medication Specific Instructions n/a One Week prior to Surgery Please call [...] to your surgery. Day of Surgery A corrugated fastener driver is required at time of discharge. [...] pm) For an appointment or insurance questions For questions pertaining to your surgical date [phone] For nursing related questions [phone] On weekends, holidays or after office hours: Call and ask the uniform cap operator to page the Plastic Surgery Resident suction plate carrier cleaner. documented in this encounter Progress Notes * ColinMeggan fuentes Madeline - 02/14/2023 8:00 AM EDT Plastic Surgery Follow Up Note Provider: Beau Torrez M.D. Reason for visit: F/U status post procedure; rediscuss thighplasty Date of surgery: 07/04/21 Procedure(s): scar revision to abdomen scar (Shan) Complications: None reported Date of Surgery: 01/03/21 Procedure(s): panniculectomy (Shan) Complications: none reported HPI: Pt reports that her upper inner thigh is sore. She had to cancel her last surgery appointment due to an achilles tendon injury. While recovering the patient gained 40 to 50 lbs. She is working on returning to her goal weight now. She would like to reschedule surgery in the fall after she reaches her goal weight. Examination: Patient is alert, conversant, comfortable, ambulating Bilateral medial thigh skin excess of skin and subcutaneous tissue from upper thigh to down to the knee, and signs of erythema and skin thinning, few areas of healed skin abscesses, no active infection. Impression: Tiffanie Monreal is a 37 y.o. female who was seen today for follow-up after the above procedure. We re-discussed her bilateral thightplasty and plan to reschedule surgery in the fall. The patient should expect to be out of work for 2 weeks. We discussed using spanx or biking shorts to provide compression while healing from surgery. We also discussed the possibility of drains after surgery. Plan: Follow up via telephone in 8 weeks to finalize surgical plan and check BMI Surgical Grid Surgeon: Shan Duration: 2 hours Timeframe: elective; schedule for fall Procedure: thighplasty (pt does not need to be admitted.) CPT: 62876 Surgical site: legs Side: sofie Anesthesia: General Follow up: 7 Days THHF: Y/N: no H&P: no Implants needed: no I, Radha Padilla, have performed the documentation for this encounter in the presence of and actingas a scribe for Beau Torrez MD. documented in this encounter Plan of Treatment Upcoming Encounters Date Type Department Care Team (Late st Contact Info) Description 06/02/2024 8:00 AM EDT Office [place] [address] Julienne Lacey APRN [facility] [place] [address] 07/24/2024 1:30 PM EST Office Visit [place] [phone] Jenni Brennan MD [facility] [address] [facility] [place] [address] documented as of this encounter Visit Diagnoses Diagnosis Excessive skin and subcutaneous tissue documented in this encounter Care Teams Dental Lab Technician Relationship Specialty Start Date End Date Saumya Felipe APRN [address] [place] [address] PCP - General Family Medicine 12/31/22 documented as of this encounter
--- OUTSIDE RECORDS SUMMARY | 2024-05-25 14:50 | XMS_ITS | Encounter Summary ---
Author Organization [facility] [place] [address] Care Team Providers Care Web Press Roll Tender Name Role Phone Kezia Aguirre MD Primary Care Provider [phone] Encounter Details Date Type Department Care Team (Late st Contact Info) Description 04/06/2021 Telephone [place] [phone] Rebecca Tim Social History Tobacco Use Types Packs/Day Years [...] encounter Miscellaneous Notes * Telephone Encounter - Rebecca Tim - 04/06/2021 10:56 AM EDT LVM TO RESCHEDULE SURGERY WITH DR. LUNA documented in this encounter Plan of Treatment Upcoming Encounters Date Type Department Care Team (Late st Contact Info) Description 06/02/2024 8:00 AM EDT Office [place] [phone] Julienne Lacey APRN [facility] [place] [address] 07/24/2024 1:30 PM EST Office Visit [place] [phone] Jenni Brennan MD [facility] [address] [place] [address] documented as of this encounter Visit Diagnoses Not on filedocumented in this encounter Care Teams Web Press Roll Tender Relationship Specialty Start Date End Date Kezia Aguirre MD [address] [place] [address] PCP - General Family Medicine 12/24/16 12/30/22 documented as of this encounter
--- OUTSIDE RECORDS SUMMARY | 2024-05-25 14:50 | XMS_ITS | Encounter Summary ---
Author Organization [facility] Address [facility] [place] [address] Care Team Providers Care Road Freight Brake Coupler Name Role Phone Kezia Aguirre MD Primary Care Provider [phone] Reason for Visit * Reason Comments Follow Up Surgery S/p scar revision to abdomen Encounter Details Date Type Department Care Team (Late st Contact Info) Description 10/12/2021 8:00 AM EST Office [place] [address] Beau Torrez MD [facility] [place] [address] Excessive skin and subcutaneous tissue Social History [...] encounter Patient Instructions * Patient Instructions* Amy Moreno RMA - 10/12/2021 8:24 AM EST Preoperative Instructions You have been scheduled to [...] to your surgery. Day of Surgery A highway truck driver is required at time of discharge. If you are a Same Day procedure and do not have a driveryour surgery will be canceled. DO NOT wear any jewelry, makeup or artificial nails the day of surgery. DO NOT apply any lotions, powders or deodorants on or near the surgical site the day of surgery. Do wear comfortable, loose fitting clothes. [facility] has instituted the requirement of COVID-19 testing for all patient undergoingprocedures that require inpatient admission to the facility. A Nurse from the COVID-19 team will reach out to you to assist with the planning and implementation of a COVID-19 test prior to your surgical date. Anesthesia will meet with you the morning of surgery. They will perform an assessment and review your history with you. Contact Information: During regular office hours (Saturday- Saturday, non-holiday 8:00 am- 5:00 pm) For an appointment or insurance questions For questions pertaining to your surgical date [phone] For nursing related questions [phone] On weekends, holidays or after office hours: Call and ask the laundry operator wash room to page the Plastic Surgery Resident toll transmission worker. documented in this encounter Progress Notes * Beau Torrez MD - 10/12/2021 8:00 AM EST Plastic Surgery Post Op Note Provider: Beau Torrez M.D. Reason for visit: F/U status post procedure Date of surgery: 07/04/21 Procedure(s): scar revision to abdomen scar (Shan) Complications: None reported Date of Surgery: 01/03/21 Procedure(s): panniculectomy (Shan) Complications: none reported HPI: Pt presents for care home follow up s/p scar revision, abdomen area. She is happy with her post op results. She is now interested in proceeding with a bilateral thighplasty. She continues to have ongoing irritation and rashes to the thigh area. She has seen her PCP to address this issue and has used medicated lotions and creams without great success. In the future she is also considering a brachioplasty as well. Examination: Patient is alert, conversant, comfortable, ambulating Breast Incision: CDI, healed well. Good symmetry R areola still decreased sensation, L areolar sensation intact to LT Bilateral median thigh skin excess of skin and signs of erythema and skin thinning, no active infection. Impression: Tiffanie Monreal is a 36 y.o. female who was seen today for follow-up after the above procedure. Please see the operative note for details. She is doing well without complaints. Patient with good results post panniculectomy. Now, interested in proceeding with bilateral thighplasty. Continues to have irritation and infections would benefit from thighplasty. Surgical Grid Surgeon: Shan Duration: 2 hours Timeframe: next available Procedure: thighplasty (pt does not need to be admitted.) CPT: 83796 Surgical site: legs Side: sofie Anesthesia: General Follow up: 7 Days THHF: Y/N: no H&P: no Implants needed: no Plan: Proceed with thighplasty Follow up in one week. I, Yesika Partida, have performed the documentation for this encounter in the presence of and acting as a scribe for Beau Torrez MD. documented in this encounter Plan of Treatment Upcoming Encounters Date Type Department Care Team (Late st Contact Info) Description 06/02/2024 8:00 AM EDT Office [place] [address] Julienne Lacey APRN [facility] [place] [address] 07/24/2024 1:30 PM EST Office Visit [place] [address] Jenni Brennan MD [facility] DR [facility] [address] documented as of this encounter Visit Diagnoses Diagnosis Excessive skin and subcutaneous tissue documented in this encounter Care Teams Road Freight Brake Coupler Relationship Specialty Start Date End Date Kezia Aguirre MD [address] [place] [address] PCP - General Family Medicine 12/24/16 12/30/22 documented as of this encounter
--- OUTSIDE RECORDS SUMMARY | 2024-05-25 14:50 | XMS_ITS | Encounter Summary ---
Author Organization [facility] [place] [address] Care Team Providers Care Thread Grinder Tool Name Role Phone Kezia Aguirre MD Primary Care Provider [phone] Reason for Referral * Consultation (Routine) - Closed Specialty Diagnoses / Procedures Referred By Sayda antoine Referred To Contact Weight and Wellness Diagnoses Weight gain Luz Vinson APRN [facility] [place] [address] [facility] [place] [address] Referral ID Status Reason Start Date Expiration Date V isits Requested Visits Authorized [id number] Closed Consult, Test & Treat 11/05/2022 11/05/2023 1 1 Reason for Visit * Reason Comments Follow-up Encounter Details Date Type Department Care Team (Late st Contact Info) Description 11/05/2022 3:00 PM EDT Office [place] [phone] Luz Vinson APRN [facility] [place] [address] [facility] [place] [address] Weight gain; Post-resection malabsorption; Status post bariatric surgery Social [...] Sign Reading Time Taken Comments Blood Pressure 143/81 11/05/2022 2:33 PM EDT Pulse 85 11/05/2022 2:33 PM EDT Temperature 36.8 ??C (98.3 ??F) 11/05/2022 2:33 PM ED T Respiratory Rate 18 11/05/2022 2:33 PM EDT Oxygen Saturation 98% 11/05/2022 2:33 PM EDT Inhaled Oxygen Concentration - - Weight 112.9 kg (249 lb) 11/05/2022 2:33 PM EDT Height 165.1 cm (5' 5) 11/05/2022 2:33 PM EDT Body Mass Index 41.44 11/05/2022 2:33 PM EDT documented in this encounter Progress Notes * Danya Gilmore, RD - 11/05/2022 3:00 PM EDT Bariatric Surgery Program Nutrition Progress Note Encounter Type: follow up SUBJECTIVE: Topics Discussed/Patient Concerns: ?? Pt reports weight gain over the summer d/t injury, is trying to get back on track ?? Pt is tracking intake, focused on increasing protein intake ?? Reviewed supplements ?? 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 OBJECTIVE: Date of Surgery:??09/30/18 Type [...] 11/05/22 249# 32% 41.5 4 yrs post-op ? MEDICATIONS: Vitamin/Mineral Supplements??(reported by patient): * Of note, pt's vitamin B12 and vitamin D levels were decreasing. Supplement Type Brand/Form Dosage/Amount Frequency Comments Multivitamin Bariatric Fusion MVM w/o iron 2 capsules daily (contains??3000 IU vit D, 560mcg vit B12) Advised pt to switch to Fusion MVM w/ 45 mg iron Calcium ? Advised pt to start penelope citrate chews with vit D Vitamin??B12 ? Iron ? Hair, skin, and nails ?? 2 pills daily ?? Vitamin D2 ? Food Allergies/Intolerances:??pork. Dairy- milk, ice cream- stomach cramps, diarrhea. Can do cheese, cottage cheese, small amount regular yogurt, Kiswahili yogurt ?? Tracking Intake:??Continues to track. Paper and Pencil log. ?? 24-Hour??Intake: advised pt to monitor portions of snacks such as mixed nuts. Breakfast Equate protein drink, high protein oatmeal w/ 1/2 banana AM Snack Yogurt w/ fruit Lunch Meat and cheese roll-up OR respiratory services manager salad PM Snack Fruit and nuts OR balance break Dinner Chicken, green beans, small amount of rice HS Snack Few tbsp of protein pudding Protein/ grams per day: 60g Hydrating fluids- oz/ day: 32 oz x 4-6 water Soda: none ETOH: 1x/ month, 1 drink per occasoin Caffeine: none Sweets: Can only tolerate small amounts Meals per day: 3 ?? Has had dumping syndrome: yes, with sweets ?? In the past month, pt has vomited/regurgitated: no ?? Constipation/Diarrhea: daily BM Exercise: walking on lunch break and after work. Plans to start TM and bike in morning. ASSESSMENT: Summary of Weight Loss: Tiffanie Monreal returns for routine follow-up at 4 years s/p surgery. Her excess weight loss is at 32%. Pt is tolerating the diet and is meeting protein and fluid goals. Encouraged pt to continue tracking intake. Reviewed supplements, advised pt to take supplements as listed above. Encouraged increased exercise as tolerated. NUTRITION INTERVENTION & MONITORING: ?? Provided support/encouragement and reinforced importance of meeting nutritional goals. ? Continue tracking intake ? Referral to [facility] ?? Reviewed vitamin and mineral supplement recommendations. Multivitamin with minerals- continue Bariatric Multivitamin 1 pill per day w/ 45 mg iron Calcium citrate 500-600 mg with vitamin D twice daily. (2 pills twice per day or 1 chew twice daily) ?? Evaluation by nurse practitioner today. ?? Handouts provided: Bariatric Toolkit (revised 2020) ? Refer to this booklet for high protein recipes and snack ideas RTC in 1-2 mo for next BSP follow up visit. Call/rtc sooner prn with questions/concerns. * Luz Vinson APRN - 11/05/2022 3:00 PM EDT [place]ariat[place] [address] Reason for visit: Bariatric Surgery follow up visit Subjective: Tiffanie Monreal is s/p laparoscopic Thomas-en-Y gastric bypass 09/30/[address] Downing, she pressents today for annual BSP follow up. Overall tolerating foods/fluids and trying to make sure she is meeting nutritional/fluid requirements. Pt reports no difficulty swallowing, epigastric pain, or bloating. No GERD. No N/V. BM are without problems. Tiffanie reports concern today re: weight gain. She reports this started last summer after an achillesinjury (led to decreased activity and change in diet). She is working to get back on track with eating well and being more active. Interim Health: Patient reports health has been stable overall. No bariatric related surgeries, hospitalizations, or ED visits since the last visit. No kidney stones or atraumatic fractures. Current Supplements: ?? Taking Bariatric Fusion Multivitamin Capsule (2/day, no iron) ?? No calcium (will start citrate chews twice a day) ?? Hair skin and nails Pt follows [...] [x]? Yes back pain improved with weight loss []? Not a baseline issue ? Liver Disease: Not [...] denies SOB or cough. GI: as above. 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 Skin: Endorses redundant skin (thighs, saw plastics, procedure will be covered by insurance), endorses skin fold rashes (OTC powder). Tobacco/Nicotine use: None. ETOH use: None. PRN [...] ?? 35.9 55 11/05/22 249 41.5 32 ?? Objective: BP 143/81 Pulse 85 Temp 36.8 ??C (98.3 ??F) Resp 18 Ht 165.1 cm (5' 5) Wt 112.9 kg (249 lb) SpO2 98% BMI 41.44 kg/m?? Physical Exam General: Alert, pleasant, NAD, appears well. Abdomen: Soft, non-distended, non-tender. Resp: No increased work of breathing. Speaking in full sentences. No cough/wheeze witnessed. Skin: No excess skin noted over abdomen. Skin is warm and dry. No rash noted on exam today. Psychiatric: Normal mood and affect. Appropriate eye contact. Lab Results Component Value Date SFOLATE >20.0 11/05/2022 Lab Results Component Value Date IRON 79 11/05/2022 TIBC 395 11/05/2022 FERRITIN 12 (L) 11/05/2022 Lab Results Component Value Date FERRITIN 12 (L) 11/05/2022 Lab Results Component Value Date [id number] 703 11/05/2022 25-OH Vit D Total (ng/mL) Date Value Status 11/05/2022 37 Final Lab Results Component Value Date WBC 7.5 11/05/2022 HGB 12.9 11/05/2022 HCT 39.7 11/05/2022 MCV 86.3 11/05/2022 PLATELET 299 11/05/2022 Lab Results Component Value Date NA 139 11/05/2022 K 4.2 11/05/2022 CL 104 11/05/2022 CO2 23 11/05/2022 BUN 10 11/05/2022 CREATININE 0.55 (L) 11/05/2022 GLUCOSE 96 11/05/2022 CALCIUM 9.5 11/05/2022 ESTGFR 121 11/05/2022 Lab Results Component Value Date ALT 9 11/05/2022 AST 14 11/05/2022 ALKPHOS 74 11/05/2022 BILITOT 0.2 11/05/2022 ALBUMIN 4.2 11/05/2022 PROT 7.3 11/05/2022 Assessment 37 y.o. female who is 4 years s/p Thomas-en-Y gastric bypass with 32% of excess body weight with recent weight gain. Plan: ??? S/p bariatric surgery: ??? Recent wt gain: discussion re: dietary considerations and strategies to move forward with weight loss. Reviewed importance of meeting nutritional/protein/fluid requirements, tracking food and food choices, measuring portions, pair carbs with protein, eat protein first being careful to avoid eating too fast, eating too much, drinking with meals, or not chewing well enough. Recommended regular exercise. ??? Offered referral to [facility] for additional weight loss support and consideration of wt loss medication. Referral placed. ??? Discussed risks associated with alcohol intake after bariatric surgery (increased risk of alcohol misuse/abuse, increased risk of ulcers, empty calorie). o Patient has met with water hydrant installer today, please see note for additional details/dietary evaluation. ??? Obesity related co-morbidities: o Improved/stable overall, patient to continue to follow with PCP/specialist. ??? Risk for vitamin deficiencies: o Reviewed lab results as above. o Reviewed recommended vitamin/mineral supplements- - Switch to MV with iron (45 mg, will be one capsule daily), - Start calcium citrate chews twice daily. o See RD note for additional details re: vitamin/mineral supplementation. Pt reminded that a bone mineral density scan (DEXA) is recommended every 2 years after bariatric surgery. BSP follow up in 2 month for next BSP follow up visit, [...] If labwork is done by the primary care director: please send a copy to the Bariatric Surgery Program, [facility], [facility], or fax [phone] documented in this encounter Plan of Treatment Upcoming Encounters Date Type Department Care Team (Late st Contact Info) Description 06/02/2024 8:00 AM EDT Office [place] [phone] Julienne Lacey APRN [facility] [place] [address] 07/24/2024 1:30 PM EST Office Visit [place] [phone] Jenni Brennan MD [facility] DR [facility] [address] Scheduled Referrals Name Type Priority Associated Diagnoses Orde r Schedule Referral to [facility] & Wellness Center Outpatient Referral Routine Weight gain Ordered: 11/05/2022 documented as of this encounter Results * Vitamin D, 25-Hydroxy (12/31/2022 2:18 PM EDT) [facility] Vitamin D Total 25 OH 31 21 - 100 ng/mL [facility] Vit D Interp Sufficient [facility] Blood 12/31/2022 2:18 PM EDT 12/31/2022 2:37 PM EDT Narrative Resulting Agency Comment Spec In Lab Luz Vinson APRN CHEMISTRY ORDERABL ES [facility] [place] [address] * (ABNORMAL) Ferritin (12/31/2022 2:18 PM EDT) Pathologist [facility] Ferritin 12(L) 15 - 150 ng/mL [facility] Comment: Pediatric reference ranges not verified at [facility], interpret with caution. Reference ranges for females greater than 50 years of age approach values for men, i.e., 30-400 ng/mL. Blood 12/31/2022 2:18 PM EDT 12/31/2022 2:37 PM EDT Narrative Resulting Agency Comment Spec In Lab Luz E Roane CASE FINISHING MACHINE ADJUSTER CHEMISTRY ORDERABL ES Performing Organization Address City/State/[facility] Co de Phone Number [facility] [place] [address] documented in this encounter Visit Diagnoses Diagnosis Weight gain Abnormal weight gain Post-resection malabsorption Other and unspecified postsurgical nonabsorption Status post bariatric surgery Bariatric surgery status documented in this encounter Care Teams Thread Grinder Tool Relationship Specialty Start Date End Date Kezia Aguirre MD [address] [place] [address] PCP - General Family Medicine 12/24/16 12/30/22 documented as of this encounter
--- OUTSIDE RECORDS SUMMARY | 2024-05-25 14:50 | XMS_ITS | Encounter Summary ---
Author Organization [facility] Address [facility] [place] [address] Care Team Providers Care Manufacturing Cost Estimator Name Role Phone Saumya Felipe APRN Primary Care Provider [phone] Encounter Details Date Type Department Care Team (Latest Contact Info) Description 02/14/2023 Travel Social History Tobacco Use Types Packs/Day [...] 8:00 AM EDT Office [place] [phone] Julienne Lacey APRN [facility] [place] [address] 07/24/2024 1:30 PM EST Office Visit Weight [place] [phone] Jenni Brennan MD [facility] DR JANET [facility] [address] documented as of this encounter Visit Diagnoses Not on filedocumented in this encounter Care Teams Manufacturing Cost Estimator Relationship Specialty Start Date End Date Saumya Felipe APRN [address] [place] [address] PCP - General Family Medicine 12/31/22 documented as of this encounter
--- OUTSIDE RECORDS SUMMARY | 2024-05-25 14:51 | XMS_ITS | Encounter Summary ---
Author Organization [facility] Address [facility] [place] [address] Care Team Providers Care Chef Under Name Role Phone Kezia Aguirre MD Primary Care Provider [phone] Encounter Details Date Type Department Care Team (Late st Contact Info) Description 04/11/2020 10:00 AM EDT Office [place] [address] Jerica Dubose MD [facility] [place] [address] Bariatric surgery status: S/P RNY gastric bypass [...] Sign Reading Time Taken Comments Blood Pressure 105/60 04/11/2020 9:49 AM EDT Pulse 57 04/11/2020 9:49 AM EDT Temperature - - Respiratory Rate 16 04/11/2020 9:49 AM EDT Oxygen Saturation 100% 04/11/2020 9:49 AM EDT Inhaled Oxygen Concentration - - Weight 94.5 kg (208 lb 6.4 oz) 04/11/2020 9:49 A M EDT Height 165.1 cm (5' 5) 04/11/2020 9:49 AM EDT Body Mass Index 34.68 04/11/2020 9:49 AM EDT documented in this encounter Progress Notes * Jerica Dubose MD - 04/11/2020 10:00 AM EDT Tiffanie Monreal is a 35 yo female post gastric bypass with rather sudden onset of epigastric pain and difficulty swallowing certain foods. Some relief with PPI but still pain with every swallow. No hematemesis or melena. Past Medical History: Diagnosis Date ??? Anxiety ??? Depression ??? Obesity Past Surgical History: Procedure Laterality Date ??? SECTION, LOW TRANSVERSE 2003 ??? SECTION, LOW TRANSVERSE 2007 ??? CHOLECYSTECTOMY, LAPAROSCOPIC ??? HYSTERECTOMY ??? PRO LAP GASTRIC BYPASS/SHELBIE-EN-Y N/A 09/30/2018 @LAPAROSCOPIC GASTROPLASTY, (WRVU 29.4) performed by Jerica Dubose MD at [facility] OR ??? PRO UPPER GI ENDOSCOPY, DIAGNOSTIC N/A 09/30/2018 ENDOSCOPY, UPPER GI, DIAGNOSTIC, WITH OR WITHOUT SPECIMENS performed by Jerica Dubose MD at [facility] OR ??? TUBAL LIGATION Bilateral 2007 No current facility-administered medications on file prior to visit. Current Outpatient Medications on File Prior to Visit Medication Sig Dispense Refill ??? UNABLE TO FIND 2 tablets daily. Med Name: Bariatric multivitamin ??? acetaminophen 500 mg Capsule Take by mouth 2 times daily. ??? iron,carbonyl-vitamin C (VITRON-C) 65 mg iron- 125 mg Tablet, Delayed Release (E.C.) Take 1 tablet by mouth daily. 90 tablet 3 ??? nystatin (MYCOSTATIN) Powder Apply topically 4 times daily. To skin fold rash as needed (Patient not taking: Reported on 04/11/2020) 60 g 0 Allergies Allergen Reactions ??? Cough Syrup [Guaifenesin] Anaphylaxis ??? Spider Venom Other (See Comments) Ask patient. Family History Problem Relation Age of Onset ??? Obesity Father at 58 ??? Heart Disease Father ??? Obesity Mother ??? Sleep Apnea Mother ??? Diabetes Mother ??? Obesity Sister s/p gastric bypass ??? Heart Disease Paternal Grandfather ??? Heart Disease Paternal Grandmother Social History Socioeconomic History ??? Marital status: Single Spouse name: None ??? Number of children: None ??? Years of education: None ??? Highest education level: None Occupational History ??? None Social Needs ??? Financial resource strain: None ??? Food insecurity Worry: None Inability: None ??? Transportation needs Medical: None Non-medical: None Tobacco Use ??? Smoking status: Former Smoker Packs/day: 0.50 Years: 2.00 Pack years: 1.00 Types: Cigarettes Quit date: 03/27/2008 Years since quittin.0 ??? Smokeless tobacco: Never Used Substance and Sexual Activity ??? Alcohol use: Yes Types: 1 Glasses of wine, 1 Cans of beer per week ??? Drug use: No ??? Sexual activity: None Lifestyle ??? Physical activity Days per week: None Minutes per session: None ??? Stress: None Relationships ??? Social connections Talks on phone: None Gets together: None Attends judaism service: None Active member of club or organization: None Attends meetings of clubs or organizations: None Relationship status: None ??? Intimate partner violence Fear of current or ex partner: None Emotionally abused: None Physically abused: None Forced sexual activity: None Other Topics Concern ??? Exercise: Patient reported Yes ??? Abuse or Threat: Physical, Sexual, Verbal No Social History Narrative ??? None On exam appears well, no distress no obvious oral thrush, non peritoneal. No jaundice. Plan: Add carafate and nystatin, EGD this week. documented in this encounter Plan of Treatment Upcoming Encounters Date Type Department Care Team (Late st Contact Info) Description 06/02/2024 8:00 AM EDT Office [place] [address] Julienne Lacey APRN [facility] [place] [address] 07/24/2024 1:30 PM EST Office Visit [place] [phone] Jenni Brennan MD [facility] [place] [address] documented as of this encounter Procedures Procedure Name Priority Date/Time Associated Diagnosis Comments HC PARATHYROID HORMONE(PTH INTACT Routine 04/11/2020 10:44 AM EDT Bariatric surgery status: 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 HC VENIPUNCTURE Routine 04/11/2020 10:44 AM EDT Bariatric surgery status: 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 HC IRON BINDING CAPACITY Routine 04/11/2020 10:44 AM EDT Bariatric surgery status: 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 HC VITAMIN D TOTAL-25 HYDROXY Routine 04/11/2020 10:44 AM EDT Bariatric surgery status: 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 HC THYROID STIMULATING HORMONE, SERUM Routine 04/11/2020 10:44 AM EDT Bariatric surgery status: 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 HC LIPASE Routine 04/11/2020 10:44 AM EDT Bariatric surgery status: 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 HC FOLATE, SERUM Routine 04/11/2020 10:4 4 AM EDT Bariatric surgery status: 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 HC FERRITIN, SERUM Routine 04/11/2020 10 :44 AM EDT Bariatric surgery status: 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 HC VITAMIN B12 SERUM Routine 04/11/2020 10:44 AM EDT Bariatric surgery status: 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 HC AMYLASE Routine 04/11/2020 10:44 AM EDT Bariatric surgery status: 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 LIPID PANEL (REFLEX DIRECT LDL) Routine 04/11/2020 10:44 AM EDT Bariatric surgery status: 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 COMPREHENSIVE METABOLIC PANEL Routine 04/11/2020 10:44 AM EDT Bariatric surgery status: 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 documented in this encounter Results * Lipase (04/11/2020 10:44 AM EDT) Lipase 26 0 - 60 unit/L [facility] Blood specimen (specimen) 04/11/2020 10:44 AM EDT 04/11/2020 10:51 AM EDT Narrative Resulting Agency Comment Spec In Lab Jerica Dubose MD CHEMISTRY ORDERABLES Performing Organization Address [facility]/ZIP Co de Phone Number [facility] [place] [address] * Amylase (04/11/2020 10:44 AM EDT) Pathologist [facility] Amylase 29 28 - 100 unit/L [facility] Blood specimen (specimen) 04/11/2020 10:44 AM EDT 04/11/2020 10:51 AM EDT Narrative Resulting Agency Comment Spec In Lab Jerica Dubose MD CHEMISTRY ORDERABLES Performing Organization Address [facility] Co de Phone Number [facility] [place] [address] * TSH (04/11/2020 10:44 AM EDT) Pathologist [facility] Thyroid Stimulating Hormone 0.60 0.27 - 4.20 mcIU/mL [facility] Blood specimen (specimen) 04/11/2020 10:44 AM EDT 04/11/2020 10:51 AM EDT Narrative Resulting Agency Comment Spec In Lab Jerica Dubose MD CHEMISTRY ORDERABLES Performing Organization Address [facility] Co de Phone Number [facility] [place] [address] * Folate, serum (04/11/2020 10:44 AM EDT) Folate 16.2 4.8 - 24.2 ng/mL [facility] Blood specimen (specimen) 04/11/2020 10:44 AM EDT 04/11/2020 10:51 AM EDT Narrative Resulting Agency Comment Spec In Lab Jerica Dubose MD CHEMISTRY ORDERABLES Performing Organization Address City/[facility]/ZIP Co de Phone Number [facility] [place] [address] * Vitamin B12 (04/11/2020 10:44 AM EDT) Vitamin B12 293 232 - 1,245 pg/mL [facility] Blood specimen (specimen) 04/11/2020 10:44 AM EDT 04/11/2020 10:51 AM EDT Narrative Resulting Agency Comment Spec In Lab Jerica Dubose MD CHEMISTRY ORDERABLES Performing Organization Address [facility] Co de Phone Number [facility] [place] [address] * Vitamin D, 25-Hydroxy (04/11/2020 10:44 AM EDT) Vitamin D Total 25 OH 22 21 - 100 ng/mL [facility] Comment: Please note, effective December 16, 2019, additional result field for Vitamin D Interpretation, and updated flagging notification. Vit D Interp Insufficient [facility] Blood specimen (specimen) 04/11/2020 10:44 AM EDT 04/11/2020 10:51 AM EDT Narrative Resulting Agency Comment Spec In Lab Jerica Dubose MD CHEMISTRY ORDERABLES Performing Organization Address City/[facility]/ZIP Co de Phone Number [facility] [place] [address] * PTH (04/11/2020 10:44 AM EDT) Parathyroid Hormone 44 15 - 65 pg/mL [facility] Blood specimen (specimen) 04/11/2020 10:44 AM EDT 04/11/2020 10:51 AM EDT Narrative Resulting Agency Comment Spec In Lab Jerica Dubose MD CHEMISTRY ORDERABLES Performing Organization Address [facility]/ZIP Co de Phone Number [facility] [place] [address] * Ferritin (04/11/2020 10:44 AM EDT) [facility] Ferritin 42 15 - 150 ng/mL [facility] Comment: Pediatric reference ranges not verified at [facility], interpret with caution. Reference ranges for females greater than 50 years of age approach values for men, i.e., 30-400 ng/mL. Blood specimen (specimen) 04/11/2020 10:44 AM EDT 04/11/2020 10:51 AM EDT Narrative Resulting Agency Comment Spec In Lab Jerica Dubose MD CHEMISTRY ORDERABLES Performing Organization Address [facility]/ZIP Co de Phone Number [facility] [place] [address] * Iron and TIBC (04/11/2020 10:44 AM EDT) [facility] Iron 88 30 - 150 mcg/dL [facility] TIBC 317 250 - 450 mcg/dL [facility] Iron Saturation 28 20 - 50 % [facility] Blood specimen (specimen) 04/11/2020 10:44 AM EDT 04/11/2020 10:51 AM EDT Narrative Resulting Agency Comment Spec In Lab Jerica Dubose MD CHEMISTRY ORDERABLES Performing Organization Address City/[facility]/ZIP Co de Phone Number [facility] [place] [address] * Lipid Panel (Reflex Direct LDL) (04/11/2020 10:44 AM EDT) [facility] Cholesterol, Total 133 mg/dL [facility] Comment: Lower Risk: <200 mg/dL Average Risk: 200-239 mg/dL Higher Risk: >ir=135 mg/dL Triglyceride 62 mg/dL [facility] Comment: Average Risk/Lower Risk: <150 mg/dL Borderline High Risk: 150-199 mg/dL High Risk: 200-499 mg/dL Very High Risk: >oz=323 mg/dL HDL Cholesterol 51 mg/dL [facility] Comment: Males: ?? Higher Risk: <40 mg/dL Females: ?? HIgher Risk: <50 mg/dL LDL Cholesterol 70 mg/dL [facility] Comment: Lowest Risk: <100 mg/dL Lower Risk: 100-129 mg/dL Borderline High Risk: 130-159 mg/dL High Risk: 160-189 mg/dL Very High Risk: >sx=766 mg/dL Cholesterol/HDL Ratio 2.6 ratio [facility] Lipid Interpretation See Note [facility] Comment: Lipid management should be guided by a patient? s ASCVD risk, goals and preferences. ACC/AHA Guidelines recommend high intensity statin if clinical ASCVD or LDL greater than or equal to 190 mg/dL. http://[employer].com/IYG-RPI-Knsygwphn Adults aged 40-75 with LDL 70-189 mg/dL should have their 10 year ASCVD risk estimated with the ACC/AHA ASCVD risk field crew chief http://tools.acc.org/LSIKM-Bvrw-Gwzaynnxe/ Statin should be discussed if risk greater [...] of ASCVD risk reduction. Blood specimen (specimen) 04/11/2020 10:44 AM EDT 04/11/2020 10:51 AM EDT Narrative Resulting Agency Comment Spec In Lab Jerica Dubose MD CHEMISTRY ORDERABLES [facility] [place] [address] * (ABNORMAL) Comprehensive metabolic panel (non-fasting) (04/11/2020 10:44 AM EDT) Glucose 96 65 - 199 mg/dL [facility] Comment:Diabetes: >=200 mg/d L plus symptoms Blood Urea Nitrogen 9 8 - 18 mg/dL [facility] Creatinine 0.60(L) 0.70 - 1.20 mg/dL [facility] Sodium 141 135 - 145 mmol/L [facility] Potassium 4.4 3.5 - 5.0 mmol/L [facility] Comment: Please note: ??Patients with WBC >100,000 may have falsely elevated Potassium levels. ??For accurate Potassium quantification in these patients send serum separator tube (gold top) for subsequent determinations. ??Contact the Clinical Chemistry Laboratory if there are any questions. Chloride 105 98 - 107 mmol/L [facility] Carbon Dioxide 26 22 - 31 mmol/L [facility] Anion Gap 10 5 - 15 mmol/L [facility] Calcium 9.4 8.5 - 10.5 mg/dL [facility] Protein, Total 7.0 6.1 - 8.0 gm/dL [facility] Albumin 4.1 3.2 - 5.2 gm/dL [facility] Aspartate Aminotransferase 11 0 - 30 unit/L [facility] Alanine Aminotransferase 11 0 - 30 unit/L [facility] Alkaline Phosphatase 64 35 - 105 unit/L [facility] Bilirubin, Total 0.3 0.2 - 1.3 mg/dL [facility] Est Glomerular Filtration Rate 118 >=60 mL/min/1. 73 m?? [facility] Comment: The eGFR was calculated using the CKD-EPI equation. As with all creatinine based estimates of kidney function, eGFR values calculated with the CKD-EPI equation are not accurate in patients with acute kidney failure, extremes of body mass or the acutely ill. http://[employer]/[facility]OTEAUnkf eGFR 137 >=60 mL/min/1. 73 m?? [facility] Comment: The eGFR was calculated using the CKD-EPI equation. As with all creatinine based estimates of kidney function, eGFR values calculated with the CKD-EPI equation are not accurate in patients with acute kidney failure, extremes of body mass or the acutely ill. http://[employer]/DHMCnkf Blood specimen (specimen) 04/11/2020 10:44 AM EDT 04/11/2020 10:51 AM EDT Narrative Resulting Agency Comment Spec In Lab Jerica Dubose MD CHEMISTRY ORDERABLES [facility] [place] [address] * Hemogram (04/11/2020 10:44 AM EDT) White Blood Cell 6.1 4.0 - 9.5 x10(3)/[facility] Red Blood Cell 4.37 4.00 - 5.21 x10(6)/[facility] Hemoglobin 12.4 11.7 - 15.5 gm/dL [facility] Hematocrit 38.3 35.7 - 45.8 % [facility] Mean Cell Volume 87.6 82.6 - 94.4 fL [facility] Mean Cell Hemoglobin 28.4 27.1 - 32.0 pg [facility] Mean Cell Hemoglobin Concentration 32.4 31.7 - 35.0 gm/dL [facility] Platelet 220 145 - 357 x10(3)/[facility] RDW Standard Deviation 41.7 37.0 - 46.0 [facility] RDW coefficient of variation 12.9 11.5 - 14.1 % [facility] Mean Platelet Volume 10.5 7.6 - 12.9 fL [facility] NRBC% auto 0.0 % [facility] NRBC Absolute 0.000 0.000 - 0.000 x10(3)/mcL [facility] Blood specimen (specimen) 04/11/2020 10:44 AM EDT 04/11/2020 10:51 AM EDT Narrative Resulting Agency Comment Spec In Lab Jerica Dubose MD HEMATOLOGY ORDERABLE S Performing Organization Address City/State/[facility] Co de Phone Number [facility] [place] [address] documented in this encounter Visit Diagnoses Diagnosis Bariatric surgery status: 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 Bariatric surgery status documented in this encounter Care Teams Chef Under Relationship Specialty Start Date End Date Kezia Aguirre MD [address] [place] [address] PCP - General Family Medicine 12/24/16 12/30/22 documented as of this encounter
--- OUTSIDE RECORDS SUMMARY | 2024-05-25 14:51 | XMS_ITS | Encounter Summary ---
Author Organization [facility] [place] [address] Care Team Providers Care Payroll Secretary Name Role Phone Kezia Aguirre MD Primary Care Provider [phone] Encounter Details Date Type Department Care Team (Late st Contact Info) Description 04/08/2020 Telephone [place] [id number] Liane Hicks RN Social History Tobacco Use Types Packs/Day [...] Miscellaneous Notes * Telephone Encounter - Liane Hicks RN - 04/08/2020 10:44 AM EDT Nursing Triage - Phone Note DATE OF CALL: 04/08/2020 TIME OF CALL: 10:44 AM PATIENT DATE OF : 1985 CALLER: Saumya Felipe APRN at patients PCP office Learning Needs Assessment Reviewed: No SUBJECTIVE - The pt was in the ED and I want to run her by you PERTINENT PAST MEDICAL HISTORY: Pt is s/p ?? Case Date: 09/30/2018 ?? Surgeon: Surgeon(s) and Role: * Jerica Dubose MD - Primary * Shan Neri MD - No qualified resident available to assist ? Preoperative diagnosis: MORBID OBESITY ?? Postoperative diagnosis: MORBID OBESITY ?? Procedure(s) (LRB): @LAPAROSCOPIC GASTROPLASTY, (WRVU 29.4) (N/A) ENDOSCOPY, UPPER GI, DIAGNOSTIC, WITH OR WITHOUT SPECIMENS (N/A) ?? NURSING OBJECTIVE/ASSESSMENT: Saumyasyeda Felipe JANE calling about pt. Pt had a relative sudden onset of epigastric pain on 04/06/2020. She presented to the ED at [facility]. Diagnosed the patient with pancreatitis d/t lipase bump (Saumya was unsure of the exact value but states 5-something) They did not do a CT scan as the scanner was down. Pt presents to her PCP office for ED follow up. Today the pain is a little less sharp. The pain is there all the time and is aggravated by eating. She states the pt reports the pain is epigastric and does not radiate. She states the pt reports vomiting and feeling like something is stuck. She states that the pt is working hard to get into/stay in a semi-reclined position to relieve the pain. The pt is moving her bowels regularly and has no constipation. The pt does report feeling nauseous and hot when the pain gets bad. Her VSS and she is afebrile. Her weight todayis 209.6 lb. Despite her vitals, Saumya is concerned and is looking for guidance. Of note, pt has had a cholecystectomy in the past. INTERVENTION/PLAN/ FOLLOW UP: I will have our secretary of police get the records from [facility]. I will discuss with the team and get back to Saumya with a plan. I spoke with Heidi South APRN and Dr. Dubose. Dr. Dubose would suggest 40 mg twice a day of a PPI and carafate, treating this as if it is an ulcer. Pt should avoid NSAID's and caffeine. He would like her to stay on clear liquids over the weekend, so if it is pancreatitis it doesn't get exacerbated. If she has worsening pain, is vomiting and can't keep fluids down, then she needs to come to our ED for evaluation. Otherwise, we have scheduled her to see Dr. Dubose on Saturday at 10am. I reviewed theabove information with Saumya who will discuss with the patient. If your symptoms do not improve, or they worsen, report to your local emergency department. CALLER AGREES: Yes PCP: Kezia Aguirre MD documented in this encounter Plan of Treatment Upcoming Encounters Date Type Department Care Team (Late st Contact Info) Description 06/02/2024 8:00 AM EDT Office [place] [address] Julienne Lacey APRN [facility] [place] [address] 07/24/2024 1:30 PM EST Office Visit [place] [phone] Jenni Brennan MD [facility] [address] [place] [address] documented as of this encounter Visit Diagnoses Not on filedocumented in this encounter Care Teams Payroll Secretary Relationship Specialty Start Date End Date Kezia Aguirre MD [address] [place] [address] PCP - General Family Medicine 12/24/16 12/30/22 documented as of this encounter
--- OUTSIDE RECORDS SUMMARY | 2024-05-25 14:51 | XMS_ITS | Encounter Summary ---
Author Organization [facility] [place] [address] Care Team Providers Care Quantitative Analyst Name Role Phone Kezia Aguirre MD Primary Care Provider [phone] Reason for Visit * Auth/Cert Specialty Diagnoses / Procedures Referred By Contac t Referred To Contact Diagnoses Morbid obesity Other sleep disorders MORBID OBESITY Procedures PRO LAP GASTRIC BYPASS/SHELBIE-EN-Y PRO UPPER GI ENDOSCOPY, DIAGNOSTIC @LAPAROSCOPIC GASTROPLASTY, (WRVU 29.4) ENDOSCOPY, UPPER GI, DIAGNOSTIC, WITH OR WITHOUT SPECIMENS Referral ID Status Reason Start Date Expiration Date Visits Re quested Visits Authorized [id number] 1 1 Encounter Details Date Type Department Care Team (Late st Contact Info) Description 09/30/2018 3:19 PM EST - 09/30/2018 7:08 PM EST Surgery [place] [address] Jerica Bronson MD [facility] [place] [address] @LAPAROSCOPIC GASTROPLASTY W/ SHELBIE-EN-Y CONSTRUCTION (WRVU 29.4) Social History Tobacco Use Types Packs/Day Years [...] Sign Reading Time Taken Comments Blood Pressure 126/67 09/30/2018 7:00 PM EST Pulse 84 09/30/2018 7:00 PM EST Temperature 36.6 ??C (97.9 ??F) 09/30/2018 6:28 PM ES T Respiratory Rate 24 09/30/2018 7:00 PM EST Oxygen Saturation 100% 09/30/2018 7:00 PM EST Inhaled Oxygen Concentration - - Weight 128.8 kg (284 lb) 09/30/2018 2:43 PM EST Height 167.6 cm (5' 6) 09/30/2018 2:43 PM EST Body Mass Index 47.65 09/30/2018 2:43 PM EST documented in this encounter Discharge Summaries * Nemesio Mccarthy MD - 10/01/2018 10:52 AM EST General Surgery Discharge Summary Primary Diagnosis: Obesity Secondary Diagnosis: Obesity Operations and Procedures: Procedure(s): @LAPAROSCOPIC GASTROPLASTY, (WRVU 29.4) ENDOSCOPY, UPPER GI, DIAGNOSTIC, WITH OR WITHOUT SPECIMENS Surgeons: Surgeon(s) and Role: * Jerica Bronson MD - Primary * Shan Neri MD - Fellow History of Present Illness: Hospital Course: Tiffanie Monreal is a 33 y.o. female who was admitted on 09/30/2018 s/p bariatric surgery gastric bypass. Operative course was uneventful. On POD#1 the patient had no complaints overnight, pain controlled, denies nausea/vomitting. 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 POD#1 she was voiding without difficulty. On POD#1 the dressing was dry and intact and the wound was benign. She did not have a bowel movement prior to discharge and was not passing flatus. She was taking PO without difficulty. On POD#1 she was advanced from stage I to stage IIdiet without difficulty Prior to discharge on POD#1 Tiffanie Monreal was afebrile, with stable vital signs. On POD#1, was discharged to home in stable condition. Vital Signs Last value Range last 24hrs Temperature Temp: 37 ??C (98.6 ??F) Temp: [36.6 ??C (97.9 ??F)-37 ??C (98.6 ??F)] Heart Rate Heart Rate: 77 Heart Rate: [77-86] Blood Pressure BP: 125/70 BP: (113-138)/(63-81) Respiratory Rate Resp: 22 Resp: [12-27] SpO2 SpO2: 99 % SpO2: [96 %-100 %] Pertinent Lab Data: Recent Labs 10/01/18 0453 WBC 9.3 HGB 13.5 HCT 41.2 PLATELET 257 Recent Labs 10/01/18452 NA 137 K 4.3 CL 104 CO2 21* BUN 7* CREATININE 0.50* Physical Exam: General: NAD, resting comfortably, pleasant, conversant HEENT: PERRL, anicteric sclerae CVS: RRR Pulm: CTAB Abd: soft, nontender, non-distended, incisions c/d/i Skin: warm, dry Ext: no c/c/e, cap refill <2sec Neuro: CN 2-12 grossly intact, nonfocal,moving all four extremities spontaneously Imaging: No results found. Condition at discharge: Stable Mental Status: awake and alert, oriented x 3 Medications: Your Medications New Medications Dose Details acetaminophen 650 mg/20.3 mL Soln Commonly known as: TYLENOL Take 20.3 mLs by mouth every 4 hours for 10 days. 650 mg Quantity: 1218 mL Refills: 0 ondansetron 4 mg Tbdl Commonly known as: ZOFRAN ODT Take 1-2 tablets by mouth every 8 hours as needed for Nausea. 4-8 mg Quantity: 12 tablet Refills: 1 oxyCODONE 5 mg/5 mL Soln Commonly known as: ROXICODONE Take 5 mLs by mouth every 4 hours as needed for Pain. 5 mg Quantity: 150 mL Refills: 0 Continued medications, unchanged Dose Details ergocalciferol 50,000 unit Cap Commonly known as: ERGOCALCIFEROL Take 1 capsule by mouth once a week for 24 doses. 25743 Units Quantity: 12 capsule Refills: 1 multivitamin Tab Commonly known as: THERAGRAN Take 1 tablet by mouth daily. 1 tablet Refills: 0 omeprazole 20 mg Cpdr Commonly known as: PriLOSEC Take 1 capsule by mouth daily for 90 days. Start at discharge to prevent ulcer. Take 30 minutes before breakfast 20 mg Quantity: 90 capsule Refills: 1 Disposition: stable, discharge home Allergies: Allergies Allergen Reactions ??? Cough Syrup [Guaifenesin] Anaphylaxis ??? Spider Venom Other (See Comments) Ask patient. Outpatient Services/Studies: No discharge procedures on file. Scheduled Appointments: Future Appointments and Orders Future Appointments and Orders Future Appointments Provider Department Dept Phone 10/24/2018 1:[address]; Flavia Landon APRN [facility] [place] Arrive at: [facility] [phone] 01/21/2019 12:[address]; Flavia Landon APRN [facility] [place] Arrive at: [facility] [phone] Instructions Given to Patient at Discharge: Patient Instructions BARIATRIC SURGERY DISCHARGE INFORMATION BARIATRIC SUPPORT TEAM CONTACT NUMBERS (Mon-Fri 8am - 5pm): General Surgery and Bariatric Surgery [phone] Bariatric Surgeons: Akil Block and Gracy [phone] Stitch Bonding Machine Tender Helper: [phone] Dietitians: [phone] Outside of regular business hours, including weekends and holidays: Ask for General Surgery resident elevator constructor helper [phone] FOR EMERGENCIES: CALL 911 (trouble breathing, chest pain, rapid heart rate >120 beats per minuteor severe abdominal pain) CALL THE BARIATRIC TEAM FOR ANY OF THE FOLLOWING: ?? Signs and symptoms of infection such as: - Redness or swelling or new significant drainage from wounds - Drainage or bleeding from wounds - Fever over 101 degrees Fahrenheit, or shaking chills ?? Persistent diarrhea or vomiting or inability to keep down food or fluids down in a 24 hour period. ?? Signs / symptoms of a blood clot: leg swelling, redness, or pain, shortness of breath ?? Problems with urination or constipation, worsening abdominal pain not controlled with pain medication ?? Any concerns you may have after your surgery Follow up Information: You have a surgical followup appointment with The Bariatric Surgery Team in 3 weeks at the [facility] ([address]). Future Appointments Date Time Provider Department Center 10/24/2018 1:00 PM Flavia Landon APRN [facility] 01/21/2019 12:30 PM Flavia Landon APRN [facility] BATHING AND WOUND CARE: ?? You may shower 2 days after surgery ?? Wash incisions with unscented mild soap ?? Rinse, pat dry and leave open to air. ?? Remove Steri-strips if they don't fall off by 7-10 days after discharge. Pat dry if they become wet. ?? Do not soak wound (no baths, no swimming) for 3 weeks after surgery ACTIVITY, LIFTING AND DRIVING: ?? For laparoscopic surgery: there are no lifting restrictions. Lift when you feel comfortable. ?? Do not drive for 2 weeks. After [address] when comfortable and not taking narcotic pain medicine. DIET: ?? Follow Stage II diet for two weeks. ?? Keep a log of your intake: Daily goals are: 48-64 ounces of fluids and 60 grams of protein. MEDICATIONS: ?? For 2 WEEKS: LARGE pills (bigger than the size of a calcium pill) must be crushed, Capsules mustbe opened onto applesauce or pudding. ?? Pills smaller than the size of a calcium DO NOT need to be crushed. ?? Not all medications can be crushed. Check with your pharmacist if unsure. BLOOD CLOT PREVENTION: ?? You do not meet scoring criteria to be discharged on medication to prevent blood clots. Be active, walk at least 4 times a day and do blood clot prevention exercises in your handbook on page 82. IF YOU ARE TREATED FOR OBSTRUCTIVE SLEEP APNEA: ?? IMPORTANT - you MUST use your CPAP/ BIPAP after surgery while sleeping at night and also when napping during the day because discharge medications can decrease your breathing. ?? Follow up with the Sleep Center if pressure seems to be too high. ULCER PREVENTION: ?? IMPORTANT - you must take acid suppressing medication for 3 MONTHS after surgery. This is taken to prevent ulcers at your surgical sites internally, even if you do not have heartburn. ?? omeprazole 20 mg daily (or another medication you may currently take for heartburn/reflux that has been discussed with Bariatric Team) ?? Omeprazole capsules contain enteric-coated, delayed-release granules. Because these granules should not be chewed or crushed, you must OPEN the capsules, sprinkle the enteric-coated granules on applesauce or yogurt. Alternatively, you may take the granules with apple juice, or swallow them quickly with water. Follow any of these methods with additional water to ensure that you have swallowed the granules completely. ?? If your insurer does not cover omeprazole, or similar medications such as pantoprazole, you mustpurchase these medications over the counter. ?? You will continue this after the initial 3 month course if you have heartburn or reflux GALLSTONE PREVENTION: ?? If you have had your gallbladder REMOVED - you do not need this medication. ?? If you have your gallbladder after Bariatric Surgery - you must take start taking Ursodiol (Actigall) 300 mg twice a day to prevent gallstones. You may START this medication 2 weeks after surgery for a duration of 6 months. After that, you may stop this medication unless otherwise directed. PAIN MEDICATION: ?? Your pain should lessen with each day out from surgery. Over the next couple of days you should be requiring less narcotic medication to control your pain, and eventually you will not need any at all. ?? Take the medication exactly as it is prescribed and make sure to read all instructions that comewith the medication. Take only as needed. ?? You may adjunct your pain control using scheduled Tylenol (acetaminophen), use as directed. Do NOT use NSAIDS (ibuprofen, Motrin, Aleve, Toradol, aspirin, etc.) to adjunct your pain control. ?? Opioids can slow reaction time, cause drowsiness or cloud judgement. You MUST NOT DRIVE while taking narcotic pain medication. ?? Taking more than the prescribed amount of narcotic or combining with alcohol or drugs can cause you to stop breathing, leading to coma, brain damage or . ?? Using this drug may cause addiction. While addiction is more common in people with a personal orfamily history of addiction, it can occur in anyone. ?? Opioids are at risk of being diverted by anyone with access to your home. Opioids should be stored in a safe and secure place, such as a locked cabinet or safe. ?? Unused opioids should be disposed of appropriately. They may be returned to a take-back location, or mixed with a small amount of water and poured over an undesirable waste such as used coffee grounds or cat litter. ?? Opioid pain medications can cause significant constipation. You should use a stool softener suchas Miralax to address this. OTHER MEANS FOR PAIN RELIEF: Other than medications. ?? Learn deep breathing exercises or meditation to help you relax ?? Reduce stress ?? Your body produces natural endorphins from exercise which can help reduce pain. Even walking is considered exercise. Talk with your provider/surgical team about what exercises are appropriate for you to perform. ?? You may use a heating pad or apply ice to the painful area unless specifically discouraged by the surgical team. ?? Find ways to distract yourself from the pain. MEDICATIONS TO AVOID FOR TWO MONTHS AFTER SURGERY: ?? Discontinue anti-inflammatory non-steroidal medications, such as Advil, Aleve, etc. Refer to Medications that may increase the risk of bleeding in handbook. ?? If you do take aspirin for your heart or to prevent strokes, continue as prescribed. WOMEN OF CHILDBEARING AGE: ?? Fertility may increase with weight loss. Avoid for 18-24 months after bariatric surgery. ?? Condoms alone are not acceptable as a form of control. Do not take control pills forthe first month after surgery. MANAGEMENT OF DIABETES MELLITUS AFTER BARIATRIC SURGERY: ?? IMPORTANT to check blood sugars four times a day, fasting blood sugars, 2 hours after meals and as needed when feeling unwell. For blood sugar less than 150, do not restart diabetes medications. ?? If the Diabetes Team saw you during your hospital stay, they have listed specific recommendations elsewhere in your discharge paperwork. Please refer to their specific diabetes care recommendations. ?? Patients on oral diabetic medication: If blood sugar is over 200 on more than 3 checks, call your primary care physician or diabetic specialist for recommendations. For patients on insulin and oral diabetic medications: If blood sugar is over 200 on 3 checks, call your primary care doctor or diabetic specialist for recommendations. ?? Follow up with primary care provider or land resource specialist in 1-2 weeks in order to adjust yourchanging diabetes treatment requirements. PATIENTS WITH HIGH BLOOD PRESSURE: ?? Monitor your blood pressure regularly. ?? If you feel dizzy and have been drinking 48-64 ounces of fluid, have your blood pressure checked. ?? If your blood pressure is low, call your primary care provider. Keep a log to bring to your PCP appointments. PATIENTS WHO TAKE DIURETICS (WATER PILLS): ?? Check with your surgical team prior to discharge for instructions. In general, this medication is stopped after surgery, as you are at risk for dehydration after Bariatric Surgery. ?? Monitor yourself for any swelling of legs or gain of water weight after medication is stopped.Call your primary care doctor if you notice this. PATIENTS ON ANTI-DEPRESSANT OR MENTAL HEALTH MEDICATIONS: ?? Do not stop or decrease your medications unless advised. ?? Ongoing counseling is encouraged. VITAMIN AND MINERAL SUPPLEMENTATION: Vitamin B12 500 mcg pill daily Complete multivitamin w/ minerals Chewable, one pill twice daily. After 2 weeks may take regular vitamin pills. Calcium Calcium citrate 600 mg with vitamin D 400 units twice a day between meals. Iron with vitamin C Take iron as instructed per Handbook - (only if you have anemia, iron deficiency or regular menses) FOLLOW-UP CARE: ?? It is IMPORTANT to see your Primary Care Physician or PCP within 10-14 days after surgery for wound check and vital signs check, and to discuss specific medical management as referenced above. ?? You should follow up with your surgeon and dietitian at 3-4 weeks after surgery. ?? You will follow up with the dietitian and Bariatric nurse practitioner at 4, 12, 18, and 24 months, then yearly for life. General Instructions None Future Appointments and Orders Future Appointments and Orders Future Appointments Provider Department Dept Phone 10/24/2018 1:[address]; Flavia Landon APRN [facility] [place] Arrive at: [facility] Area 01/21/2019 12:[address]; Flavia Landon APRN General Surgery [facility] Arrive at: [facility] Area Signed: Nemesio Mccarthy MD 10/01/2018 Primary [place] Physician: Kezia Aguirre MD [address] [place] [phone] documented in this encounter Discharge Instructions * Patient Instructions* Nemesio Mccarthy MD - 10/01/2018 11:57 AM EST BARIATRIC SURGERY DISCHARGE INFORMATION BARIATRIC SUPPORT TEAM CONTACT NUMBERS (Mon-Fri 8am - 5pm): General Surgery and Bariatric Surgery [phone] Bariatric Surgeons: Akil Block and Gracy [phone] Stitch Bonding Machine Tender Helper: [phone] Dietitians: [phone] Outside of regular business hours, including weekends and holidays: Ask for General Surgery resident elevator constructor helper [phone] FOR EMERGENCIES: CALL 911 (trouble breathing, chest pain, rapid heart rate >120 beats per minuteor severe abdominal pain) CALL THE BARIATRIC TEAM FOR ANY OF THE FOLLOWING: ?? Signs and symptoms of infection such as: - Redness or swelling or new significant drainage from wounds - Drainage or bleeding from wounds - Fever over 101 degrees Fahrenheit, or shaking chills ?? Persistent diarrhea or vomiting or inability to keep down food or fluids down in a 24 hour period. ?? Signs / symptoms of a blood clot: leg swelling, redness, or pain, shortness of breath ?? Problems with urination or constipation, worsening abdominal pain not controlled with pain medication ?? Any concerns you may have after your surgery Follow up Information: You have a surgical followup appointment with The Bariatric Surgery Team in 3 weeks at the [facility] ([facility], [facility]). Future Appointments Date Time Provider Department Center 10/24/2018 1:00 PM Flavia Landon APRN [facility] 01/21/2019 12:30 PM Flavia Landon APRN [facility] BATHING AND WOUND CARE: ?? You may shower 2 days after surgery ?? Wash incisions with unscented mild soap ?? Rinse, pat dry and leave open to air. ?? Remove Steri-strips if they don't fall off by 7-10 days after discharge. Pat dry if they become wet. ?? Do not soak wound (no baths, no swimming) for 3 weeks after surgery ACTIVITY, LIFTING AND DRIVING: ?? For laparoscopic surgery: there are no lifting restrictions. Lift when you feel comfortable. ?? Do not drive for 2 weeks. After [address] when comfortable and not taking narcotic pain medicine. DIET: ?? Follow Stage II diet for two weeks. ?? Keep a log of your intake: Daily goals are: 48-64 ounces of fluids and 60 grams of protein. MEDICATIONS: ?? For 2 WEEKS: LARGE pills (bigger than the size of a calcium pill) must be crushed, Capsules mustbe opened onto applesauce or pudding. ?? Pills smaller than the size of a calcium DO NOT need to be crushed. ?? Not all medications can be crushed. Check with your pharmacist if unsure. BLOOD CLOT PREVENTION: ?? You do not meet scoring criteria to be discharged on medication to prevent blood clots. Be active, walk at least 4 times a day and do blood clot prevention exercises in your handbook on page 82. IF YOU ARE TREATED FOR OBSTRUCTIVE SLEEP APNEA: ?? IMPORTANT - you MUST use your CPAP/ BIPAP after surgery while sleeping at night and also when napping during the day because discharge medications can decrease your breathing. ?? Follow up with the Sleep Center if pressure seems to be too high. ULCER PREVENTION: ?? IMPORTANT - you must take acid suppressing medication for 3 MONTHS after surgery. This is taken to prevent ulcers at your surgical sites internally, even if you do not have heartburn. ?? omeprazole 20 mg daily (or another medication you may currently take for heartburn/reflux that has been discussed with Bariatric Team) ?? Omeprazole capsules contain enteric-coated, delayed-release granules. Because these granules should not be chewed or crushed, you must OPEN the capsules, sprinkle the enteric-coated granules on applesauce or yogurt. Alternatively, you may take the granules with apple juice, or swallow them quickly with water. Follow any of these methods with additional water to ensure that you have swallowed the granules completely. ?? If your insurer does not cover omeprazole, or similar medications such as pantoprazole, you mustpurchase these medications over the counter. ?? You will continue this after the initial 3 month course if you have heartburn or reflux GALLSTONE PREVENTION: ?? If you have had your gallbladder REMOVED - you do not need this medication. ?? If you have your gallbladder after Bariatric Surgery - you must take start taking Ursodiol (Actigall) 300 mg twice a day to prevent gallstones. You may START this medication 2 weeks after surgery for a duration of 6 months. After that, you may stop this medication unless otherwise directed. PAIN MEDICATION: ?? Your pain should lessen with each day out from surgery. Over the next couple of days you should be requiring less narcotic medication to control your pain, and eventually you will not need any at all. ?? Take the medication exactly as it is prescribed and make sure to read all instructions that comewith the medication. Take only as needed. ?? You may adjunct your pain control using scheduled Tylenol (acetaminophen), use as directed. Do NOT use NSAIDS (ibuprofen, Motrin, Aleve, Toradol, aspirin, etc.) to adjunct your pain control. ?? Opioids can slow reaction time, cause drowsiness or cloud judgement. You MUST NOT DRIVE while taking narcotic pain medication. ?? Taking more than the prescribed amount of narcotic or combining with alcohol or drugs can cause you to stop breathing, leading to coma, brain damage or . ?? Using this drug may cause addiction. While addiction is more common in people with a personal orfamily history of addiction, it can occur in anyone. ?? Opioids are at risk of being diverted by anyone with access to your home. Opioids should be stored in a safe and secure place, such as a locked cabinet or safe. ?? Unused opioids should be disposed of appropriately. They may be returned to a take-back location, or mixed with a small amount of water and poured over an undesirable waste such as used coffee grounds or cat litter. ?? Opioid pain medications can cause significant constipation. You should use a stool softener suchas Miralax to address this. OTHER MEANS FOR PAIN RELIEF: Other than medications. ?? Learn deep breathing exercises or meditation to help you relax ?? Reduce stress ?? Your body produces natural endorphins from exercise which can help reduce pain. Even walking is considered exercise. Talk with your provider/surgical team about what exercises are appropriate for you to perform. ?? You may use a heating pad or apply ice to the painful area unless specifically discouraged by the surgical team. ?? Find ways to distract yourself from the pain. MEDICATIONS TO AVOID FOR TWO MONTHS AFTER SURGERY: ?? Discontinue anti-inflammatory non-steroidal medications, such as Advil, Aleve, etc. Refer to Medications that may increase the risk of bleeding in handbook. ?? If you do take aspirin for your heart or to prevent strokes, continue as prescribed. WOMEN OF CHILDBEARING AGE: ?? Fertility may increase with weight loss. Avoid for 18-24 months after bariatric surgery. ?? Condoms alone are not acceptable as a form of control. Do not take control pills forthe first month after surgery. MANAGEMENT OF DIABETES MELLITUS AFTER BARIATRIC SURGERY: ?? IMPORTANT to check blood sugars four times a day, fasting blood sugars, 2 hours after meals and as needed when feeling unwell. For blood sugar less than 150, do not restart diabetes medications. ?? If the Diabetes Team saw you during your hospital stay, they have listed specific recommendations elsewhere in your discharge paperwork. Please refer to their specific diabetes care recommendations. ?? Patients on oral diabetic medication: If blood sugar is over 200 on more than 3 checks, call your primary care physician or diabetic specialist for recommendations. For patients on insulin and oral diabetic medications: If blood sugar is over 200 on 3 checks, call your primary care doctor or diabetic specialist for recommendations. ?? Follow up with primary care provider or land resource specialist in 1-2 weeks in order to adjust yourchanging diabetes treatment requirements. PATIENTS WITH HIGH BLOOD PRESSURE: ?? Monitor your blood pressure regularly. ?? If you feel dizzy and have been drinking 48-64 ounces of fluid, have your blood pressure checked. ?? If your blood pressure is low, call your primary care provider. Keep a log to bring to your PCP appointments. PATIENTS WHO TAKE DIURETICS (WATER PILLS): ?? Check with your surgical team prior to discharge for instructions. In general, this medication is stopped after surgery, as you are at risk for dehydration after Bariatric Surgery. ?? Monitor yourself for any swelling of legs or gain of water weight after medication is stopped.Call your primary care doctor if you notice this. PATIENTS ON ANTI-DEPRESSANT OR MENTAL HEALTH MEDICATIONS: ?? Do not stop or decrease your medications unless advised. ?? Ongoing counseling is encouraged. VITAMIN AND MINERAL SUPPLEMENTATION: Vitamin B12 500 mcg pill daily Complete multivitamin w/ minerals Chewable, one pill twice daily. After 2 weeks may take regular vitamin pills. Calcium Calcium citrate 600 mg with vitamin D 400 units twice a day between meals. Iron with vitamin C Take iron as instructed per Handbook - (only if you have anemia, iron deficiency or regular menses) FOLLOW-UP CARE: ?? It is IMPORTANT to see your Primary Care Physician or PCP within 10-14 days after surgery for wound check and vital signs check, and to discuss specific medical management as referenced above. ?? You should follow up with your surgeon and dietitian at 3-4 weeks after surgery. ?? You will follow up with the dietitian and Bariatric nurse practitioner at 4, 12, 18, and 24 months, then yearly for life. documented in this encounter Medications at Time of Discharge Medication Sig Dispensed Refills Start Date End Date acetaminophen (TYLENOL) 650 mg/20.3 mL Solution Take 20.3 mLs by mouth every 4 hours for 10 days. 1218 mL 10/01/2018 10/11/2018 oxyCODONE (ROXICODONE) 5 mg/5 mL Solution Take 5 mLs by mouth every 4 hours as needed for Pain. 150 mL 10/01/2018 10/24/2018 ondansetron (ZOFRAN ODT) 4 mg Tablet, Rapid Dissolve Take 1-2 tablets by mouth every 8 hours as needed for Nausea. 12 tablet 1 10/01/2018 10/24/2018 omeprazole (PRILOSEC) 20 mg Capsule, Delayed Release(E.C.)Indicatio ns:Preventive medication therapy needed Take 1 capsule by mouth daily for 90 days. Start at discharge to prevent ulcer. Take 30 minutes before breakfast 90 capsule 1 09/08/2018 12/07/2018 multivitamin (THERAGRAN) Tablet Take 1 tablet by mouth daily. 01/22/2019 ergocalciferol (ERGOCALCIFEROL) 50,000 unit CapsuleIndications:Vit aparicio D deficiency Take 1 capsule by mouth once a week for 24 doses. 12 capsule 1 09/01/2018 01/21/2019 documented as of this encounter Progress Notes * Zoltan Duncan MD - 09/30/2018 10:49 PM EST Post-Operative Check Tiffanie Monreal is a 33 y.o. female s/p lap RYGB. Procedure(s): @LAPAROSCOPIC GASTROPLASTY, (WRVU 29.4) ENDOSCOPY, UPPER GI, DIAGNOSTIC, WITH OR WITHOUT SPECIMENS S: No nausea/vomiting, chest pain, SOB, pain well controlled, offers no complaints. O: Temp: [36.6 ??C (97.9 ??F)-36.8 ??C (98.2 ??F)] Heart Rate: [79-86] Resp: [12-27] BP: (118-131)/(63-72) SpO2: [97 %-100 %] Heart Rate from SpO2: [79 bpm-86 bpm] I/O last 3 completed shifts: In: 1700 [I.V.:1700] Out: - I/O this shift: In: - Out: 400 [Urine:400] No results found for this or any previous visit (from the past 24 hour(s)). Physical Exam Gen: A0x3, NAD, resting comfortably CVS: RRR Resp: CTAB, breathing comfortably on RA Abd: soft, minimally tender, nondistended, port sites c/d/i Ext: SCDs in place, WWP AP Tiffanie Monreal is a 33 y.o. female s/p lap RYGB currently in stable condition and recovering well - continue post operative plan per primary team - pain well controlled - hemodynamically stable Zoltan Duncan MD 09/30/2018 * Ginette Aguilera RN - 09/30/2018 10:08 PM EST Report received from JUVE Paige. Pt arrived to 404A from PACU at 2044. A+Ox4. VSS. Switched to RA sating at 95%. Reports no sob or cp. Admits to left sided gas pain. LR running at 125. GLOBAL EXPANSION SALES DIRECTOR at 2,10, 4.Pt up to bathroom and voided 400. PVR for 205. DTV at 0100. After getting up to the bathroom pt c/onausea. Zofran offered and administered with good affect. Pt sleeping at this time. Boyfriend at bedside. * Grecia Reyez RN - 09/30/2018 7:49 PM EST Report received from [facility] AN, care assumed. Pt sleepy, arouses with voice. 0: Dilaudid GLOBAL EXPANSION SALES DIRECTOR set up, instructions given with return demonstration. 1944: Family at bedside. Pt recognizes LUQ discomfort as gas pain like I had my gallbladder out. 2014: I can tell its really gas pain, its moving. * Elenita Montanez RN - 09/30/2018 6:58 PM EST Jarrell SOLO for iv fluids for GLOBAL EXPANSION SALES DIRECTOR order. * Elenita Montanez RN - 09/30/2018 6:55 PM EST Pt out to pacu 21 from or 12 on a bed all alarms are on and audible. Pt has a simple mask at 6 liters on lung sounds are clear. Iv site is flushed and patent. Iv fluids infusing. Pt is resting on bedwith eyes closed opened when stimulated by pain. No nausea or pain noted. Abd. 5 lap sites clean dry and intact. documented in this encounter H&P Notes * Jerica Bronson MD - 09/30/2018 2:30 PM EST Patient Name: Tiffanie Monreal Patient Age: 33 y.o. Birthdate: 1985 Admit date: 09/30/2018 Attending Physician: Jerica Bronson MD Reason for consultation: Tiffanie is a 33 y.o. year-old female referred by Kezia Aguirre MD for consultation for consideration of surgical treatment of obesity. ?? Her preferred procedure: gastric bypass. Tiffanie was advised that weight loss from both procedures depends on ability to eat a healthy diet fci after surgery and was encouraged to review the risks and benefits of both procedures in the BSP handbook, as well as online via the [facility] website. ?? BARIATRIC SURGERY PROGRAM PATHWAY ?? Review of progress with the requirements of the Bariatric Surgery Program: ?? 1. Education: She has attended a Introduction to the [facility] Bariatric Surgery Program seminar, a comprehensive two hour meeting that provides a program overview, education on bariatric surgeries offered at [facility], risks and benefits, as well as patient expectations and follow up [facility] Bariatric Surgery Program Educational seminars viewed 2. Pre-operative programmatic evaluations: PCP evaluation and letter of support to proceed with surgery, BSP labwork, and psychological evaluation 3. Bariatric Surgery Program evaluations with RD today. 4. WT at visit #1: 298 pounds 5. Gallbladder status: S/P cholecystectomy 6. Next steps in pathway: ?? Additional testing/ consultations as determined as needed to be determined at today's visit. ? History of present illness: Tiffanie reports a history of obesity since her late teens. Factors that she identifies as contributing to her obesity include: genetics, overconsumption and inactivity. She denies binge eating, night eating disorder, self-induced vomiting, laxative or diuretic use or excessive exercise to lose weight. ?? Conservative efforts at weight loss have been unsuccessful in the terminal worker. Refer to nutrition note by [facility] dietitian for weight and dieting history, 24 hour dietary intake and recent dietary changes. Motivating factors for seeking surgery for bariatric surgery: see RD note Patient research in addition to attendance at [facility] Bariatric Surgery Informational meeting and online Educational seminars: see RD note ? Her goals of surgery: get healthier, avoid early heart problems ?? Her perceived readiness for surgery: very good ?? Functional status: Exercise: As per RD note Is ambulation limited most or all of the time? no Tolerance: she can walk a mile and climb a flight of stairs Karnofsky performance status scale: 90- able to carry on normal activity, minor signs or symptoms of disease ?? ADLs: able to carry on without difficulty- independent, ?? Use of assistive devices: none Dyspnea with routine activity: denies ?? Patient Active Problem List Diagnosis Code ??? Breast hypertrophy N62 ??? Morbid obesity E66.01 ??? 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 Insomnia G47.00 ??? Major depressive disorder F32.9 ??? Anxiety disorder F41.9 ? Past??Surgical??History Past Surgical History: Procedure Laterality Date ??? SECTION, LOW TRANSVERSE ?? 2003 ??? SECTION, LOW TRANSVERSE ?? 2007 ??? CHOLECYSTECTOMY, LAPAROSCOPIC ? HYSTERECTOMY ? TUBAL LIGATION Bilateral 2007 ? On examination, she appears well and in no distress. Head and neck exam reveals equal, reactive pupils and a supple neck. Her chest is clear bilaterally and her heart sounds are normal with no adventitious sounds or murmurs. Her abdomen is soft with no masses or tenderness. Extremity and Neuro exams are grossly normal. documented in this encounter Miscellaneous Notes * Initial Assessments - Simran Schroeder RN - 10/01/2018 8:08 AM EST Office of Care Management Assessment Medical record reviewed. Plan of care and patient status discussed with direct care RN and/or Care Team in multidisciplinary rounds. Screenin33 y/o woman who had LAPAROSCOPIC GASTROPLASTY, (WRVU 29.4) (N/A) ENDOSCOPY, UPPER GI, DIAGNOSTIC, WITH OR WITHOUT SPECIMENS (N/A) on 09/30 Present on Admission: ??? Morbid obesity Patient has not been admitted to a hospital within the last 30 days. Patient receiving hospital care under IPI- SDP Admission (IP) status. Admission order reviewed. Primary Insurance on file: MEDICAID [place] Secondary Insurance on file: N/A Primary care provider on file: Kezia Aguirre MD [phone] Advance Directive on file and Code Status: Full Code Patient???s Functional Status: Independent Living Situation: [address] [facility] [id number] Supports: Mother Assessment: Patient with no apparent RNCM/SW needs at this time. No housing, transportation, insurance, resources concerns identified at this time. Supports in place to achieve a safe post-hospital transition. No identified barriers to accessing necessary care and/or follow-up after discharge. Plan: Patient to d/c to home via personal car when medically ready. leather tacker/Food Safety Director will continue to follow patient???s progress and remain available if situation changes for coordination of care, psychosocial support and/or discharge planning. Simran Schroeder RN Pager [phone] * Plan of Care - Ginette Aguilera RN - 10/01/2018 2:35 AM EST Problem: Patient Care Overview Goal: Plan of Care Review Outcome: Ongoing (Interventions Implemented as Appropriate) 09/30/18205110/01/18225 Plan of Care Review Progress -- progress toward functional goals as expected Coping/Psychosocial Plan Of Care Reviewed With patient -- OUTCOME EVALUATION NOTE: OUTCOME SUMMARY: Pt has had a good night. VSS. Voiding adequately. Last PVR 166. A+Ox4. Pain about a 6, utilizing network operations center technician. Ambulated the halls. C/o gas pains and as she describes a feeling of tightness in her abdomen. Noc/o sob or cp. Upon first getting out of bed pt felt nauseous, zofran administered with good relief. Lap sites c/d/i. Abdomen soft but tender. Bowel sounds hypoactive. Sleeping in between care. 0430: Pt c/o sudden onset sharp pain 9/10 in LUQ, no relief with use of GLOBAL EXPANSION SALES DIRECTOR. MD notified. Slow deepbreaths encouraged. Heating pad ordered. VSS. PLAN MOVING FORWARD: Encourage activity, monitor pain and nausea. Monitor I/O. Advance diet. INDIVIDUALIZED FALL PREVENTION INTERVENTIONS: Patient-specific fall risk factors per assessment: [current deficits]: IV, pain medications, post surgery Assistance [level of assistance required for transfers and ambulation]: sba Supervision [direct monitoring required during toileting and ADLs]: Eyes on Surveillance [continuous indirect monitoring]: Rounding, masimo, call carrasquillo within reach, bed lockedin low position Patient-specific fall prevention interventions for sensory deficits provided, if applicable: [X] Yes nonskid socks when oob CPG GOAL OUTCOME EVALUATION: Goal: Fall Prevention-Safe Patient Handling Outcome: Ongoing (Interventions Implemented as Appropriate) 09/30/182051 Martin Fall Risk History of Falling 0 Secondary Diagnosis 15 Ambulatory Aids 0 Intravenous Therapy/Heparin/Saline Lock 20 Gait/Transferring 0 Mental Status 0 Score 35 OTHER Martin Fall Risk Med Restraint Interventions Safety Promotion/Fall Prevention safety round/check completed;nonskid shoes/slippers when out of bed;activity supervised Positioning Body Position supine, head elevated;independent Activity Activity Type activity adjusted per tolerance;ambulated to bathroom Activity Assistance Provided assistance, stand-by Assistive Device Utilized none Goal: Infection Control Outcome: Ongoing (Interventions Implemented as Appropriate) 09/30/182051 Safety Interventions Isolation Precautions standard precautions maintained Infection Prevention environmental surveillance performed;rest/sleep promoted Coping Strategies Supportive Measures active listening utilized;decision-making supported;positive reinforcement provided;goal setting facilitated;self-care encouraged;relaxation techniques promoted;self-reflection promoted;self-responsibility promoted;verbalization of feelings encouraged Goal: Discharge Needs Assessment Outcome: Ongoing (Interventions Implemented as Appropriate) 10/01/18225 Discharge Needs Assessment Concerns To Be Addressed no discharge needs identified Readmission Within The Last 30 Days no previous admission in last 30 days Equipment Needed After Discharge none Discharge Disposition still a patient Current Health Anticipated Changes Related to Illness none Activity/Self Care Review of Systems Equipment Currently Used at Home none Living Environment Transportation Available car;family or friend will provide Goal: Interdisciplinary Rounds/Family Conf Outcome: Ongoing (Interventions Implemented as Appropriate) 10/01/18225 Interdisciplinary Rounds/Family Conf Participants nursing;patient;physician * Op Note - Jerica Bronson MD - 09/30/2018 6:16 PM EST [facility] Operative Note Patient Name: Tiffanie Monreal : [id number] MR#: [id number] Case Date: 09/30/2018 Surgeon: Surgeon(s) and Role: * Jerica Bronson MD - Primary * Shan Neri MD - No qualified resident available to assist Preoperative diagnosis: MORBID OBESITY Postoperative diagnosis: MORBID OBESITY Procedure(s) (LRB): @LAPAROSCOPIC GASTROPLASTY, (WRVU 29.4) (N/A) ENDOSCOPY, UPPER GI, DIAGNOSTIC, WITH OR WITHOUT SPECIMENS (N/A) Anesthesia: General Estimated Blood Loss: 17 ml Specimens removed during surgery: None Drains: Surgical Closure: Primary Closure - skin incision is completely closed without any wires, rinku, drains or other devices Disposition: awakened from anesthesia, extubated and taken to the recovery room in a stable condition, having suffered no apparent untoward event. Condition: doing well without problems (Please see the Surgical Encounter Summary for any Implant and Specimen details pertinent to this patient.) Indications: This 33 y.o. female presented to the Bariatric Program with a history of weight-related problems including significant weight-related comorbidities. She meets the NIH criteria for gastric bypass. The risks and benefits of the procedure were explained and she chose to undergo this procedure laparoscopically. Under general anesthesia and endotracheal intubation, the patient was prepped and draped in the supine position. The abdomen was entered using the optiview trocar system. The 10-mm port was placed approximately 15 cm below the xiphoid from the left of midline. A 45-degree telescope was inserted, and under direct vision, two 5-mm ports were placed in the left upper quadrant forming the first arm of a V with the scope at the apex. Several adhesions were taken down with sharp dissection. A 5- mm port was placed approximately 15-cm along the right costal margin, through which a liver retractor was placed and used to elevate the left lobe of the liver, thus exposing the hiatal region. This was fixed in good position using the mechanical arm. A 5-mm port was placed approximately 10 cm along the right costal margin and a 12- mm port was placed approximately 4 cm below this. A small window was made along the vasculature of the lesser curve, approximately 5 cm from the hiatus. Eventually, the vasculature was from the lesser curve and the posterior, lesser sac was entered. The hiatal region was freed up of some attachments to the diaphragm, thus exposing the left alexandria. A firing of an [employer]CRISTINA 60 stapler with a purple load in a transverse direction across the stomach was performed. The stapler was then fired multiple times until a small narrow pouch was created. The pouch accommodated a volume of approximately 20 cc to 30 cc. The patient was then placed into some Trendelenburg position. Adhesions between the omentum and lower anterior abdominal wall were taken down using sharp dissection. The omentum and transverse colon reflected cephalad. The ligament of Treitz was identified and dissection was carried along approximately 40 cm from the ligament of Treitz. A small window was made in the small bowel mesentery and a stapler was introduced through this to create a firing of the stapler and divide the small bowel. The harmonic scalpel was used to divide the mesentery for a Shelbie limb. At a point approximately 100 cm, the distal bowel was chosen to create the [id number] jejunojejunostomy. The duodenal, afferent limb was approximated to the side wall of the jejunum at the 100-cm roderick. Enterotomies were made in both and a single firing of an EndoGIA vascular load was used to create anastomosis. The resultant defect was sewn in two layers of running 2-0 Surgilon suture. A split was made in the omentum just above the transverse colon and the Shelbie limb fed through this. Two stay stitches in the side wall of the Shelbie limb were approximated to the end of the gastric pouch. An enterotomy was made in the gastric pouch and the jejunostomy and a partial-length firing of the CRISTINA-60 stapler was used to create the anastomosis between this pouch and the jejunum. The resultant enterotomy defect was closed with a running 2- 0 Surgilon suture in two layers with a 30 [place] Islander Bougie (blunt-tipped) in place. The Bougie was then removed and the Shelbie limb clamped with a bowel clamp. The endoscope was introduced and the pouch and anastomosis was insufflated under saline. Inspection of the anastomosis did not reveal any leak. It appeared to be patent and allowed passage of an endoscope without resistance. The jejuno-jejunostomy mesenteric defect was then closed with a running 2-0 Surgilon suture. All ports were then removed under direct vision and the skin was closed with running subcuticular 4-0 Vicryl suture, followed by Steri- Strips and Band-aids. The patient returned to the Recovery Room in stable conditions. Sponge, instrument and needle counts were correct. Attestation: Case Date: 09/30/2018 I performed this procedure without the involvement of a resident. JERICA BRONSON MD 09/30/2018 documented in this encounter Plan of Treatment Upcoming Encounters Date Type Department Care Team (Late st Contact Info) Description 06/02/2024 8:00 AM EDT Office [place] [phone] Julienne Lacey APRN [facility] [place] [address] 07/24/2024 1:30 PM EST Office Visit [place] [phone] Jenni Brennan MD [facility] DR [facility]ET [place] [address] documented as of this encounter Procedures Procedure Name Priority Date/Time Associated Diagnosis Comments IMPLANTABLE DEVICES SCAN 10/02/2018 12:00 AM EST HEMOGRAM Routine 10/01/2018 4:53 AM EST DIFFERENTIAL, AUTOMATED Routine 10/01/2018 4:53 AM EST CREATININE Routine 10/01/2018 4:53 AM EST CBC (WITH DIFF) Routine 10/01/2018 4:53 AM EST BUN Routine 10/01/2018 4:53 AM EST ELECTROLYTES PANEL Routine 10/01/2018 4: 53 AM EST ENDOSCOPY, UPPER GI, DIAGNOSTIC, WITH OR WITHOUT SPECIMENS (WRVU 2.09) Yes 09/30/2018 3:29 PM EST MORBID OBESITY @LAPAROSCOPIC GASTROPLASTY W/ SHELBIE-EN-Y CONSTRUCTION (WRVU 29.4) Yes 09/30/2018 3:29 PM EST MORBID OBESITY documented in this encounter Results * SCAN DOC: IMPLANTABLE DEVICES (10/02/2018 12:00 AM EST) Narrative 10/02/2018 12:00 AM EST Ordered by an unspecified provider. Scanning Provider MEDIA MGR SCAN EXT O RDR/RSLT * (ABNORMAL) Differential, Automated (10/01/2018 4:53 AM EST) Neutrophil % 83.0 % [facility] Neutrophil Absolute 7.68(H) 1.70 - 6.10 x10(3)/mc L [facility] Lymph % 9.8 % [facility] Lymphocytes Abs 0.9 0.9 - 3.2 x10(3)/mc L [facility] Monocyte % 6.8 % [facility] Monocyte Abs 0.6 0.3 - 0.9 x10(3)/mc L [facility] Eos % 0.0 % [facility] Eosinophils Abs 0.0 0.0 - 0.4 x10(3)/mc L [facility] Basophil % 0.1 % [facility] Baso Absolute 0.0 0.0 - 0.1 x10(3)/[facility] Immature Gran % 0.30 % [facility] Comment: Immature granulocytes(IG's)percentage and absolute count will include metamyelocytes, myelocytes, and promyelocytes. Blood smears from CBCs yielding IG's will be scanned manually for concordance. If this scan disagrees with the automated IG or if promyelocytes are noted, a manual differential will be performed. Immature Gran Absolute 0.03 0.00 - 0.04 x10(3)/[facility] Blood specimen (specimen) 10/01/2018 4:53 AM EST 10/01/2018 5:19 AM EST Narrative Resulting Agency Comment Spec In Lab Shan Neri MD HEMATOLOGY ORDERABLE S Performing Organization Address City/State/[facility] Co de Phone Number [facility] [place] [address] * Hemogram (10/01/2018 4:53 AM EST) White Blood Cell 9.3 4.0 - 9.5 x10(3)/[facility] Red Blood Cell 4.90 4.00 - 5.21 x10(6)/[facility] Hemoglobin 13.5 11.7 - 15.5 gm/dL [facility] Hematocrit 41.2 35.7 - 45.8 % [facility] Mean Cell Volume 84.1 82.6 - 94.4 fL [facility] Mean Cell Hemoglobin 27.6 27.1 - 32.0 pg [facility] Mean Cell Hemoglobin Concentration 32.8 31.7 - 35.0 gm/dL [facility] Platelet 257 145 - 357 x10(3)/[facility] RDW Standard Deviation 41.4 37.0 - 46.0 fL [facility] RDW coefficient of variation 13.4 11.5 - 14.1 % [facility] Mean Platelet Volume 10.7 7.6 - 12.9 fL [facility] NRBC% auto 0.0 % [facility] NRBC Absolute 0.000 0.000 - 0.000 x10(3)/mcL [facility] Blood specimen (specimen) 10/01/2018 4:53 AM EST 10/01/2018 5:19 AM EST Narrative Resulting Agency Comment Spec In Lab Shan Neri MD HEMATOLOGY ORDERABLE S Performing Organization Address City/[facility]/[place] [address] * (ABNORMAL) Creatinine (10/01/2018 4:53 AM EST) Creatinine 0.50(L) 0.70 - 1.20 mg/dL [facility] Est Glomerular Filtration Rate 127 >=60 mL/min/1.7 3 m?? [facility] Comment: The eGFR was calculated using the CKD-EPI equation. As with all creatinine based estimates of kidney function, eGFR values calculated with the CKD-EPI equation are not accurate in patients with acute kidney failure, extremes of body mass or the acutely ill. [email or web address] eGFR 147 >=60 mL/min/1.7 3 m?? [facility] Comment: The eGFR was calculated using the CKD-EPI equation. As with all creatinine based estimates of kidney function, eGFR values calculated with the CKD-EPI equation are not accurate in patients with acute kidney failure, extremes of body mass or the acutely ill. [email or web address] Blood specimen (specimen) 10/01/2018 4:53 AM EST 10/01/2018 5:19 AM EST Narrative Resulting Agency Comment Spec In Lab Shan Neri MD CHEMISTRY ORDERABLES [facility] [place] [address] * (ABNORMAL) BUN (10/01/2018 4:53 AM EST) Blood Urea Nitrogen 7(L) 8 - 18 mg/dL [facility] Blood specimen (specimen) 10/01/2018 4:53 AM EST 10/01/2018 5:19 AM EST Narrative Resulting Agency Comment Spec In Lab Shan Neri MD CHEMISTRY ORDERABLES [facility] [place] [address] * (ABNORMAL) Electrolytes panel (10/01/2018 4:53 AM EST) Sodium 137 135 - 145 mmol/L [facility] Potassium 4.3 3.5 - 5.0 mmol/L [facility] Comment: Please note: ??Patients with WBC >100,000 may have falsely elevated Potassium levels. ??For accurate Potassium quantification in these patients send serum separator tube (gold top) for subsequent determinations. ??Contact the Clinical Chemistry Laboratory if there are any questions. Chloride 104 98 - 107 mmol/L [facility] Carbon Dioxide 21(L) 22 - 31 mmol/L [facility] Anion Gap 12 5 - 15 mmol/L [facility] Blood specimen (specimen) 10/01/2018 4:53 AM EST 10/01/2018 5:19 AM EST Narrative Resulting Agency Comment Spec In Lab Shan Neri MD CHEMISTRY ORDERABLES [facility] [place] [address] documented in this encounter Visit Diagnoses Not on filedocumented in this encounter Administered Medications Inactive Administered Medications - up to 3 most recent administrations Medication Order MAR Action Action Date Dose Rate Site acetaminophen (TYLENOL) 650 mg/20.3 mL oral liquid 650 mg 650 mg, Oral, EVERY 4 HOURS SCHEDULED, First dose on Sat10/01/18 at 0800, Until Discontinued, Maximum dose of acetaminophen is 4000 mg from all sources in 24 hours. , Routine Given 10/01/2018 12:25 PM EST 650 mg Given 10/01/2018 8:39 AM EST 650 mg BUpivacaine (PF) (MARCAINE) 0.25 % (2.5 mg/mL) injection ONCE PRN, Starting on Sat09/30/18 at 1559, Until Sat10/01/18 at 1950, Intra-Operative (Intra-Procedure), Routine Given 09/30/2018 3:59 PM EST 30 mLs 19- Surgical Site enoxaparin (LOVENOX) injection 40 mg 40 mg, Subcutaneous, 2 TIMES DAILY, First dose on Sat10/01/18 at 0900, Until Discontinued, Recovery (Recovery-Hospital Unit), Routine Given 10/01/2018 8:39 AM EST 40 mg lactated Ringers infusion 125 mL/hr, Intravenous, CONTINUOUS, Starting on Sat09/30/18 at 1930, Until Sat10/01/18 at 1950, Recovery (Recovery-Hospital Unit) New Bag 10/01/2018 11:37 AM EST 125 mL/hr 125 mL/hr New Bag 10/01/2018 3:38 AM EST 125 mL/hr 125 mL/hr New Bag 09/30/2018 7:31 PM EST 125 mL/hr 125 mL/hr oxyCODONE (ROXICODONE) 5 mg/5 mL solution 5 mg 5 mg, Oral, EVERY 4 HOURS PRN, Starting on Sat10/01/18 at 0656, Until Sat10/01/18 at 1950, Pain, Routine Given 10/01/2018 8:39 AM EST 5 mg pantoprazole (PROTONIX) injection 40 mg 40 mg, Intravenous, DAILY, First dose on Sat10/01/18 at 0900, Until Discontinued, Reconstitute with 10 mL of normal saline to a concentration of 4 mg/mL and infuse slowly over 2 minutes. , Recovery (Recovery-Hospital Unit), Routine Given 10/01/2018 8:39 AM EST 40 mg sodium chloride 0.9 % flush 5 mL 5 mL, Intravenous, 2 TIMES DAILY, First dose on Sat09/30/18 at 2100, Until Discontinued, Recovery (Recovery[facility]Hospital Unit), Routine Given 10/01/2018 8:40 AM EST 5 mLs Given 09/30/2018 9:00 PM EST 5 mLs documented in this encounter Active and Recently Administered Medications Times are shown in EST. Scheduled Medication Order 09/29/2018 09/30/2018 10/01/2018 acetaminophen (OFIRMEV) injection 1,000 mg (CANCELED) 1,000 mg, Intravenous, at 400 mL/hr, Administer over 15 Minutes, EVERY 6 HOURS SCHEDULED, 4 doses, First dose on Sat09/30/18 at 1900, Last dose on Sat10/01/18 at 1200, Maximum dose of acetaminophen is 4000 mg from all sources in 24 hours., Recovery (Recovery-Hospital Unit), Routine, Is ketorolac (Toradol) IV contraindicated? No, Can this patient tolerate oral medications or suppositories? Yes 1844 (Given - Provider: Elenita Montanez RN) 0055 (Given - Provider: Ginette Aguilera, JUVE)0551 (Given - Provider: Ginette Aguilera RN) acetaminophen (TYLENOL) 650 mg/20.3 mL oral liquid 650 mg 650 mg, Oral, EVERY 4 HOURS SCHEDULED, First dose on Sat10/01/18 at 0800, Until Discontinued, Maximum dose of acetaminophen is 4000 mg from all sources in 24 hours. , Routine 0839 (Given - Provid er: Silvia Reich RN)1225 (Given - Provider: Silvia Reich RN)1600 (Due) acetaminophen (TYLENOL) tablet 1,000 mg (COMPLETED) 1,000 mg, Oral, ONCE, 1 dose, On Sat09/30/18 at 1515, Administer with SIP of H2O only., Day of Surgery (Day of Procedure), Routine 1503 (Given - Provider: Shan Michel RN) ceFAZolin (ANCEF) 3g in dextrose 5% 100 mL (COMPLETED) 3 g, Intravenous, EVERY 3 HOURS, 1 dose, First dose on Sat09/30/18 at 1515, Administer over 30 Minutes, Intra-Operative (Intra-Procedure), Indication for (Active or Suspected): Prophylaxis 1545 (Given - Provider: Florecita Amos) enoxaparin (LOVENOX) injection 40 mg (COMPLETED) 40 mg, Subcutaneous, ONCE, 1 dose, On Sat09/30/18 at 1530, Day of Surgery (Day of Procedure), Routine 1505 (Given - Provider: Corrine Chicas, JUVE) enoxaparin (LOVENOX) injection 40 mg 40 mg, Subcutaneous, 2 TIMES DAILY, First dose on Sat10/01/18 at 0900, Until Discontinued, Recovery (Recovery-Hospital Unit), Routine 0839 (Given - Provid er: Silvia Reich RN) gabapentin (NEURONTIN) capsule 600 mg (COMPLETED) 600 mg, Oral, ONCE, 1 dose, On Sat09/30/18 at 1515, Administer with SIP of H2O only., Day of Surgery (Day of Procedure), Routine 1503 (Given - Provider: Shan Michel RN) pantoprazole (PROTONIX) injection 40 mg 40 mg, Intravenous, DAILY, First dose on Sat10/01/18 at 0900, Until Discontinued, Reconstitute with 10 mL of normal saline to a concentration of 4 mg/mL and infuse slowly over 2 minutes. , Recovery (Recovery-Hospital Unit), Routine 0839 (Given - Provid er: Silvia Reich RN) sodium chloride 0.9 % flush 5 mL 5 mL, Intravenous, 2 TIMES DAILY, First dose on Sat09/30/18 at 2100, Until Discontinued, Recovery (Recovery-Hospital Unit), Routine 2100 (Given - Provider: Ginette Aguilera, RN) 0840 (Given - Provider: Silvia Reich, JUVE) Continuous Medication Order 09/29/2018 09/30/2018 10/01/2018 HYDROmorphone (DILAUDID) 1 mg/mL [employer] 50 mL (CANCELED) Intravenous, [employer] ONLY, Starting on Sat09/30/18 at 1900, Until Sat10/01/18 at 0656, Recovery (Recovery[facility]Hospital Unit) 1900 (New Syringe/Cartridge - Provider: Grecia Reyez, RN) lactated Ringers infusion 125 mL/hr, Intravenous, CONTINUOUS, Starting on Sat09/30/18 at 1930, Until Sat10/01/18 at 1950, Recovery (Recovery[facility]Hospital Unit) 1931 (New Bag - Provider: Grecia Reyez, RN) 0338 (New Bag - Provider: Ginette Aguilera, JUVE)1137 (New Bag - Provider: Silvia Reich, JUVE) PRN Medication Order 09/29/2018 09/30/2018 10/01/2018 BUpivacaine (PF) (MARCAINE) 0.25 % (2.5 mg/mL) injection (CANCELED) ONCE PRN, Starting on Sat09/30/18 at 1559, Until Sat10/01/18 at 1950, Intra-Operative (Intra-Procedure), Routine 155 (Given - Provider: Jerica Bronson MD - Comment: 30mL injected to abdominal laparoscopic sites) diphenhydrAMINE (BENADRYL) injection 25 mg 25 mg, Intravenous, EVERY 30 MIN PRN, 2 doses, Starting on Sat09/30/18 at 2044, Until Sat10/01/18 at 1950, Itching, May repeat dose in 30 minutes if pruritis not relieved. Per [employer] order., Recovery (Recovery-Hospital Unit), Routine lidocaine (XYLOCAINE) 10 mg/mL (1 %) injection 3 mg 3 mg (0.3 mL), Subcutaneous, ONCE PRN, 1 dose, Starting on Sat09/30/18 at 204, Until Sat10/01/18 at 1950, for discomfort with PIV insertion, Recovery (Recovery-Hospital Unit), Routine nalOXone (NARCAN) injection 0.2 mg 0.2 mg, Intravenous, EVERY 1 MIN PRN, Starting on Sat09/30/18 at 2043, Until Sat10/01/18 at 1950, Opioid Reversal, May repeat every 60 seconds to increase respiratory rate. DO NOT exceed 2 mg total dose. Per [employer] order., Recovery (Recovery[facility]Hospital Unit), Routine ondansetron (ZOFRAN) injection 4 mg (COMPLETED) 4 mg, Intravenous, EVERY 30 MIN PRN, 2 doses, Starting on Sat09/30/18 at 2043, Until Sat10/01/18 at 1029, Nausea, May repeat dose once in 30 minutes if no relief from previous dose. If multiple antiemetics are ordered, use ondansetron first, prochlorperazine second. Per [employer] order. , Recovery (Recovery[facility]Hospital Unit) 2111 (Given - Provider: Ginette Aguilera RN) 1029 (Given - Provider: Silvia Reich RN) oxyCODONE (ROXICODONE) 5 mg/5 mL solution 5 mg 5 mg, Oral, EVERY 4 HOURS PRN, Starting on Sat10/01/18 at 0656, Until Sat10/01/18 at 1950, Pain, Routine 0839 (Given - Provider: Silvia Reich RN) prochlorperazine (COMPAZINE) injection 5 mg 5 mg, Intravenous, EVERY 30 MIN PRN, 2 doses, Starting on Sat09/30/18 at 2044, Until Sat10/01/18 at 1950, Nausea, May repeat in 30 minutes if no relief from previous dose. HOLD if patient is sedated. Maximum dose is 40 mg in 24 hours. If multiple antiemetics are ordered, use ondansetron first, prochlorperazine second. Per [employer] order., Recovery (Recovery-Hospital Unit), Routine sodium chloride 0.9 % flush 5-20 mL 5-20 mL, Intravenous, EVERY 1 MIN PRN, Starting on Sat09/30/18 at 2044, Until Sat10/01/18 at 1950, flush, Flush pertains to all indwelling lines. Flush per protocol found in the job aid using the link provided on this medication record., Recovery (Recovery-Hospital Unit), Routine documented in this encounter Care Teams Quantitative Analyst Relationship Specialty Start Date End Date Kezia Aguirre MD [address] [place] [address] PCP - General Family Medicine 12/24/16 12/30/22 documented as of this encounter
--- OUTSIDE RECORDS SUMMARY | 2024-05-25 14:51 | XMS_ITS | Encounter Summary ---
Author Organization [facility] Address [facility] [place] [address] Care Team Providers Care Vp Strategy Name Role Phone Kezia Aguirre MD Primary Care Provider [phone] Reason for Visit * Reason Comments Follow-up s/p bariatric surger y Encounter Details Date Type Department Care Team (Late st Contact Info) Description 01/21/2019 1:00 PM EDT Office [place] [phone] Flavia Landon APRN [facility] DR J[facility] [address] Disorder of iron metabolism; Status post bariatric surgery; Intestinal malabsorption, unspecified type; Vitamin D deficiency; Iron deficiency anemia secondary to inadequate dietary iron intake Social History Tobacco Use Types Packs/Day Years [...] Sign Reading Time Taken Comments Blood Pressure 117/72 01/21/2019 12:44 PM EDT Pulse 67 01/21/2019 12:44 PM EDT Temperature - - Respiratory Rate 16 01/21/2019 12:44 PM EDT Oxygen Saturation 100% 01/21/2019 12:44 PM EDT Inhaled Oxygen Concentration - - Weight 108.2 kg (238 lb 8 oz) 01/21/2019 12:44 P M EDT Height 165.1 cm (5' 5) 01/21/2019 12:44 PM EDT Body Mass Index 39.69 01/21/2019 12:44 PM EDT documented in this encounter Patient Instructions * Patient Instructions* Flavia Landon, INSPECTOR BALL POINTS - 01/21/2019 1:00 PM EDT [facility] desktop support consultant Florecita [phone] and Casandra [phone] Dietitians: [phone] Surgeons/ nurse practitioners: [phone] Nurse line: [phone] Testing: Labwork: Today. Go to [facility] [address], which is 1 flight below the General Surgery Clinic. I will notify you via [facility] regarding your results and recommendations A copy of your labwork and office visit today is sent to your primary palliative care physician Next visit: 4 months Routine visits are done at 4.8,12, 18 and 24 months after surgery, and yearly thereafter. Please call [phone] if you do not receive an appointment by 3-4 weeks prior to the expected visit. Medications: 1. No changes at this point 2.Further recommendations pending labwork. Referrals: Later on will refer you to plastics Vitamins: The following vitamins are recommended: ??? Multivitamins with minerals twice daily- needs to be an under 50 multivitamin that contains iron. No senior multivitamins. (Or read the serving size if taking a Bariatric specific multivitamin such as procare). ??? Vitamin B12 500 mcg by mouth once daily ??? Calcium citrate 600 mg with Vitamin D 400 units twice daily (600 mg in AM and 600 mg in PM- 2 pills twice a day) (or 1 chewable twice a day) ??? Iron with Vitamin C, 50-66 mg once daily (take iron with vitamin C 250 mg to help with absorption) only if you have regular periods, iron deficiency or anemia. Nutrition recommendations: make sure you track and get enough protein. - Your Daily Goals: ?? 1,000-1,200 calories per day (300 calories per meal, 100 calories per snack, 1-2 snacks per day) ?? 60 grams of protein per day (20 grams per meal) ?? 48-64 oz of non-caloric and hydrating fluids per day (6-8, 8 oz cups) ?? Do not drink with meals- pushes food through more quickly, can cause upset stomach Activity: ??? Aim for 30 minutes of exercise daily, 5 days a week of both cardio and strength training exercises. Alcohol: should be used sparingly, no more than one drink per occasion. Alcohol is a source of empty calories and can cause ulcers and vitamin and mineral deficiencies. Alcohol is toxic to the liver and is absorbed more quickly after surgery, it stays in the system longer. Studies have noted that there is an increased risk of alcohol dependence after bariatric surgery. Alcohol is not recommended until at least 6-12 months post surgery, and after goal weight has been achieved f non-prescribed drugs and treet drugs is unsafe Anti-inflammatory medications such as Ibuprofen (Advil), Aleve (Naproxen), Excedrin, should be usedsparingly after gastric bypass, since they increase the risk of ulcer and bleeding. Hair Loss: is associated with rapid weight loss and is seen approximately 3 to 6 months after surgery and can last 3 to 6 months. It is almost always temporary. Eating a healthy diet with 60 grams ofprotein per day and taking your multivitamin with minerals will help. Call us: ??? If you have concerns. ??? If you have unexplained abdominal pain. ??? if you see blood in your stool or vomit blood ??? If you have prolonged vomiting Post Surgery Support Group: Our post surgery support group meets on the first Saturday of every month from 1-2 PM at [facility]- no registration required Nutrition and Activity apps- Baritastic, My Fitness Pal, Lose It Internet resources: www.[employer] www.Ideagen www.bariatriceating.com www.Tinteo.com/blog [facility] facebook page: https://www.[email or web address]/[email or web address] Books & Magazines: - Recipes for Life After Weight Loss Surgery by Ally Schmitt - Shrink Yourself by Dr Alban Mendez - Eating Well - www.A4 Data.VideoClix - Cooking Light- www.cookingCyber [employer].VideoClix documented in this encounter Progress Notes * Flavia Landon, INSPECTOR BALL POINTS - 01/21/2019 1:00 PM EDT Reason for visit: follow up S/P laparoscopic Shelbie-en-Y gastric bypass 09/30/2018 Complications summary: Early none Late none Visits summary: Compliance with scheduled BSP follow-up: good Bariatric surgery graduates support group attendance: has gone to the support group in [facility] couple of times, finds it helpful Pre-op 08/25/2018 Wt (lbs) 295 BMI 49 HT: 65 Post-op Visit date Wt (lbs) BMI %EBW lost Supplement compliance Labwork 10/24/2018 275 45.83 14 Good using fusion None indicated 01/21/2019 238 39.69 40 Good continues fusion Full labs today Date Evaluation Results 12/2018 Primary care Was seen for lightheadedness, dizziness- low blood glucose, she has periods of time when she doesn't get much protein in, not sure if it was around that time, typically tries to get 40-60 grams but on some days gets less than 40g N/a EGD N/a Colonoscopy Patient Active Problem List Diagnosis Code ??? Breast hypertrophy N62 ??? Morbid obesity E66.01 ??? 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 Insomnia G47.00 ??? Major depressive disorder F32.9 ??? Anxiety disorder F41.9 Medications 01/22/19 0728 Medication Sig Taking? UNABLE TO FIND Take 1 tablet by mouth 4 times daily. Med Name: bariatric fusion Yes nystatin (MYCOSTATIN) Powder Apply topically 4 times daily. To skin fold rash as needed Yes Allergies Allergen Reactions ??? Cough Syrup [Guaifenesin] Anaphylaxis ??? Spider Venom Other (See Comments) Ask patient. Past Surgical History: Procedure Laterality Date ??? SECTION, LOW TRANSVERSE 2003 ??? SECTION, LOW TRANSVERSE 2007 ??? CHOLECYSTECTOMY, LAPAROSCOPIC ??? HYSTERECTOMY ??? PRO LAP GASTRIC BYPASS/SHELBIE-EN-Y N/A 09/30/2018 @LAPAROSCOPIC GASTROPLASTY, (WRVU 29.4) performed by Jerica Dubose MD at [facility] MA[facility] OR ??? PRO UPPER GI ENDOSCOPY, DIAGNOSTIC N/A 09/30/2018 ENDOSCOPY, UPPER GI, DIAGNOSTIC, WITH OR WITHOUT SPECIMENS performed by Jerica Dubose MD at [facility] OR ??? TUBAL LIGATION Bilateral 2007 Visits to emergency department or other unplanned visit to a health care facility since last visit?Did see pcp for dizziness, has resolved Changes to health/ social history or evaluations since last visit: As per updated problem list and e-DH Subjective. Patient concerns at today's visit: Tiffanie returns for her 4 month post surgery follow up. She is adjusting to her body changing, some struggling with sagging skin and rashes. Medications Frequency/ Duration Comments Ursodiol n/a Treatment for constipation None, does not need to take anything, does not need to take anything NSAIDs None PPI No longer taking No s/s of GERD Dietary history/ exercise/ activity level: Is going to the gym 3 times a week for 30-60 minutes, does treadmill, does weights/strengthening, bother upper and lower body. Kayaking and biking with her kids. Vitamins/Supplements: TYPE DOSE FREQUENCY COMPLIANCE Multivitamin 1 all in one tab 4 times a day Good, rarely misses any Calcium B12 Iron Reported Oral Intake: Breakfast 2 boiled eggs, granola (can't tolerate any dairy except a little cheese -cramps, pain, diarrhea) Lunch 1/2 sand, slices deli ham, one slice bread, onion, green pepper, cottage cheese Dinner 4 oz chicken, caesar salad, parmesan, sometimes has fish or burger, can't tolerate pork Snacks Protein bar(niurka) 20g protein, low sugar or protein water Fluid At least a gallon a day water, has 2-3 sugar free snapple iced teas ETOH None Benefits of surgery: less aches and pains, eating healthier, feeling better about herself, can do more, isn't out of breath, more activities with kids Goals: wants to keep losing, would like to get to 200, keep being more active with her kids Review of Systems (negative if left blank): Constitutional: [] fatigue [] pica [x]hair loss- some not too bad [] restless leg Neurologic: [] paresthesias CV: [] treatment for hypertension or taking antihypertensive medication [] treatment for hyperlipidemia Pulmonary: [] sleep apnea symptoms []treatment for ESTHELA GI: [] GERD []dysphagia []dumping [] abdominal pain []hernia [] nausea/vomiting [] blood in stool [] chronic diarrhea/ constipation- has problems with cramping and diarrhea when she eats pork and dairy BUS STEWARD: [] LMP: [] control [] menorrhagia [] post-menopause, s/p hysterectomy : [] pain with urination [] ED [] hesitancy/urgency Skin: [x] redundant skin [x] chronic rashes, abdominal skin folds and thighs, using meticulous skincare, nystatin powder, still a problem Heme/Lymph: []excessive bruising [] blood donation in past year Psychiatric [] mental health concerns Health-related habits/other: Tobacco: none Alcohol: none 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 year-old female who appears stated age, NAD Heart: S1S2 distinct, no extra sounds or murmurs, RRR Lungs: Clear all lobes A&P, effort minimal, pattern regular Extremities: no LE edema, pulses present Abdomen: soft, non-tender. No masses, Abdominal trocar sites well-healed, pale lines, +BS Grade 2-3 abominal pannus 2 tiered abdominal effect Stria extending up to the umbilicus Hooding over the umbilical remnant Active subpannus intertrigo Vital signs: BP 117/72 Pulse 67 Resp 16 Ht 165.1 cm (5' 5) Wt 108.2 kg (238 lb 8 oz) SpO2 100% BMI 39.69 kg/m?? Today's lab data: Recent Results (from the past 72 hour(s)) Folate, serum Result Value Ref Range Folate Lvl 8.6 4.8 - 24.2 ng/mL Vitamin B12 Result Value Ref Range Vitamin B-12 285 232 - 1,245 pg/mL Ferritin Result Value Ref Range Ferritin 86 15 - 150 ng/mL Iron and TIBC Result Value Ref Range Iron 32 30 - 150 mcg/dL TIBC 310 250 - 450 mcg/dL Iron Saturation 10 (L) 20 - 50 % Hemoglobin A1c Result Value Ref Range Hemoglobin A1C 5.1 4.3 - 5.6 % Est Avg Gluc 100 mg/dL Prealbumin Result Value Ref Range Prealbumin 19 (L) 20 - 40 mg/dL Comprehensive metabolic panel (non-fasting) Result Value Ref Range Glucose Lvl 90 65 - 199 mg/dL BUN 9 8 - 18 mg/dL Creatinine 0.53 (L) 0.70 - 1.20 mg/dL Sodium 142 135 - 145 mmol/L Potassium 4.1 3.5 - 5.0 mmol/L Chloride 106 98 - 107 mmol/L CO2 26 22 - 31 mmol/L Anion Gap 10 5 - 15 mmol/L Calcium 9.6 8.5 - 10.5 mg/dL Total Protein 7.2 6.1 - 8.0 gm/dL Albumin 4.6 3.2 - 5.2 gm/dL AST 14 0 - 30 unit/L ALT 13 0 - 30 unit/L Alk Phos 76 40 - 104 unit/L Total Bilirubin 0.2 0.2 - 1.3 mg/dL eGFR 125 >=60 mL/min/1.73 m?? eGFR 145 >=60 mL/min/1.73 m?? Hemogram Result Value Ref Range WBC 8.0 4.0 - 9.5 x10(3)/mcL RBC 4.88 4.00 - 5.21 x10(6)/mcL Hemoglobin 13.4 11.7 - 15.5 gm/dL Hematocrit 42.1 35.7 - 45.8 % MCV 86.3 82.6 - 94.4 fL MCH 27.5 27.1 - 32.0 pg MCHC 31.8 31.7 - 35.0 gm/dL Platelets 261 145 - 357 x10(3)/mcL RDWSD 43.4 37.0 - 46.0 fL RDWCV 13.7 11.5 - 14.1 % MPV 10.6 7.6 - 12.9 fL nRBC % Auto 0.0 % nRBC Abs Auto 0.000 0.000 - 0.000 x10(3)/mcL reviewed, recommend pt add iron, increase protein Assessment: S/P RNY, with loss of 40% of excess body weight. Encounter Diagnoses Name ??? Disorder of iron metabolism Iron saturation is low, recommend adding iron daily with vitamin C,vitron C ordered ??? Status post bariatric surgery Doing well s/p surgery, very pleased with weight loss ??? Intestinal malabsorption, unspecified type Has become intolerant of most dairy. Labs today ??? Vitamin D deficiency Level pending Intertrigo, symptomatic abdominal panniculus As above, continue meticulous skin care, nystatin powder as needed Plan: ?? Tiffanie was congratulated on ongoing healthy lifestyle efforts ?? advised that control is recommended for at least 18-24 months post- operatively, pt is s/p hysterectomy. ?? E- medical record reviewed since last BSP visit ?? Advised that hair loss due to rapid weight loss is typical for this early post-surgery time frame, will improve with time and adequate protein/ calorie intake ?? Next BSP follow up: 4 months, sooner if needed ?? Next labwork: 4 months, sooner if needed ?? Additional vitamin and mineral supplement recommendations (*in addition to routine bariatric supplements, as noted below): add iron daily, increase protein intake ?? Advised to call with unexplained abdominal pain, prolonged nausea, vomiting or inability to hydrate, questions or concerns ?? dietary/ exercise recommendations per RD She was provided with a Bariatric Program Summary report which included the above recommendations, as well as information on vitamin and mineral supplementation, fluids, exercise and support group meetings. She has had an opportunity to have all her questions answered and is in agreement with the plan of care. Tiffanie was advised of lab results via [facility] per her request. RECOMMENDED BARIATRIC SURGERY PROGRAM POSTOPERATIVE FOLLOW-UP: Follow up: done at 4, 8,12 and 18 and 24 months, and yearly thereafter. High risk patients are evaluated on a more frequent basis. *Supplement recommendations: Complete multivitamin with minerals twice a day, B12 500 mcg once a day, calcium citrate 600 mg/400units vitamin D twice a day, iron (ferrous fumarate, polysaccharide iron taken with vitamin C 250 mg once a day) for menstruating females or those with VENECIA. Labwork: Hemogram, ferritin, iron (transferrin) saturation, iron, folate, Vitamins B1, B12, D (25 hydroxy only), Intact PTH and comprehensive metabolic profile at 4, 12 and 24 months, and yearly. Prealbumin is done at 4 and 12 months and PRN. If labwork is done by the primary palliative care physician: pleasesend a copy to the Bariatric Surgery Program, General Surgery Clinic, [facility] Questions regarding [facility] Bariatric Surgery Program patients: please call [phone]. documented in this encounter Plan of Treatment Upcoming Encounters Date Type Department Care Team (Late Contact Info) Description 06/02/2024 8:00 AM EDT Office Visit [place] [phone] Julienne Lacey APRN [facility] [place] [address] 07/24/2024 1:30 PM EST Office Visit Weight [place] [address] Jenni Brennan MD [facility] DR JANET [place] [address] documented as of this encounter Procedures Procedure Name Priority Date/Time Associated Diagnosis Comments HEMOGRAM Routine 01/21/2019 1:51 PM EDT Disorder of iron metabolism Status post bariatric surgery Intestinal malabsorption, unspecified type VITAMIN B1, WHOLE BLOOD Routine 01/21/2019 1:51 PM EDT Disorder of iron metabolism Status post bariatric surgery Intestinal malabsorption, unspecified type IRON AND TIBC Routine 01/21/2019 1:51 PM EDT Disorder of iron metabolism Status post bariatric surgery Intestinal malabsorption, unspecified type VITAMIN A Routine 01/21/2019 1:51 PM EDT Disorder of iron metabolism Status post bariatric surgery Intestinal malabsorption, unspecified type VITAMIN D, 25-HYDROXY Routine 01/21/2019 1:51 PM EDT Disorder of iron metabolism Status post bariatric surgery Intestinal malabsorption, unspecified type Vitamin D deficiency PREALBUMIN Routine 01/21/2019 1:51 PM EDT Disorder of iron metabolism Status post bariatric surgery Intestinal malabsorption, unspecified type HEMOGLOBIN A1C Routine 01/21/2019 1:51 PM EDT Disorder of iron metabolism Status post bariatric surgery Intestinal malabsorption, unspecified type FOLATE, SERUM Routine 01/21/2019 1:51 PM EDT Disorder of iron metabolism Status post bariatric surgery Intestinal malabsorption, unspecified type FERRITIN Routine 01/21/2019 1:51 PM EDT Disorder of iron metabolism Status post bariatric surgery Intestinal malabsorption, unspecified type VITAMIN B12 Routine 01/21/2019 1:51 PM EDT Disorder of iron metabolism Status post bariatric surgery Intestinal malabsorption, unspecified type COMPREHENSIVE METABOLIC PANEL Routine 01/21/2019 1:51 PM EDT Disorder of iron metabolism Status post bariatric surgery Intestinal malabsorption, unspecified type documented in this encounter Results * Folate, serum (01/21/2019 1:51 PM EDT) Folate 8.6 4.8 - 24.2 ng/mL [facility] Blood specimen (specimen) 01/21/2019 1:51 PM EDT 01/21/2019 2:04 PM EDT Narrative Resulting Agency Comment Spec In Lab Flavia Landon INSPECTOR BALL POINTS CHEMISTRY ORDERABLES Performing Organization Address City/[facility]/ZIP Co de Phone Number [facility] [place] [address] * Vitamin B12 (01/21/2019 1:51 PM EDT) Vitamin B12 285 232 - 1,245 pg/mL [facility] Blood specimen (specimen) 01/21/2019 1:51 PM EDT 01/21/2019 2:04 PM EDT Narrative Resulting Agency Comment Spec In Lab Flavia Landon INSPECTOR BALL POINTS CHEMISTRY ORDERABLES Performing Organization Address City/[facility]/ZIP Co de Phone Number [facility] [place] [address] * Vitamin B1, whole blood (01/21/2019 1:51 PM EDT) Vit B1 Lvl Wb (DECEMBER) 148 70 - 180 nmol/L [facility] Comment: ADDITIONAL INFORMATION This test was developed and its performance characteristics determined by [facility] in a manner consistent with CLIA requirements. This test has not been cleared or approved by the U.S. Food and Drug Administration. Test Performed by: [facility] - [facility] [address] [place] [address] Blood specimen (specimen) 01/21/2019 1:51 PM EDT 01/21/2019 4:04 PM EDT Narrative Resulting Agency Comment Spec In Lab Flavia Landon APRN LAB SEND OUT ORDERAB LES Performing Organization Address [facility]/ZIP Co de Phone Number [facility] [place] [address] * (ABNORMAL) Vitamin D, 25-Hydroxy (01/21/2019 1:51 PM EDT) Vitamin D Total 25 OH 26(L) 30 - 100 ng/mL [facility] Comment: Deficient <10 ng/mL Insufficient 10 to 29 ng/mL Sufficient 30 to 100 ng/mL Potential Intoxication >100 ng/mL According to the US National Osteoporosis Foundation, Vitamin D concentrations >30 ng/mL are sufficient to protect bone health. ??The National Kidney Foundation has similarly stated that patients with Vitamin D concentrations <30ng/mL should be considered to be insufficient or deficient. http://LendingStar.com/nkf-guidelines http://LendingStar.VideoClix/nejm-VitD The IDS iSYS Vitamin D Immunoassay detects both 25-OH Vitamin D2 and 25-OH Vitamin D3, but only a total Vitamin D concentration is reported. Blood specimen (specimen) 01/21/2019 1:51 PM EDT 01/22/2019 7:43 AM EDT Narrative Resulting Agency Comment Spec In Lab Flavia Landon APRN CHEMISTRY ORDERABLES Performing Organization Address [facility]/ZIP Co de Phone Number [facility] [place] [address] * Ferritin (01/21/2019 1:51 PM EDT) [facility] Ferritin 86 15 - 150 ng/mL [facility] Comment: Pediatric reference ranges not verified at [facility], interpret with caution. Reference ranges for females greater than 50 years of age approach values for men, i.e., 30-400 ng/mL. Blood specimen (specimen) 01/21/2019 1:51 PM EDT 01/21/2019 2:04 PM EDT Narrative Resulting Agency Comment Spec In Lab Flavia Landon APRN CHEMISTRY ORDERABLES Performing Organization Address [facility] Co de Phone Number [facility] [place] [address] * (ABNORMAL) Vitamin A (01/21/2019 1:51 PM EDT) [facility] Vitamin A (DECEMBER) 27.4(L) 32.5 - 78.0 mcg/dL [facility] Comment: ADDITIONAL INFORMATION This test was developed and its performance characteristics determined by [facility] in a manner consistent with CLIA requirements. This test has not been cleared or approved by the U.S. Food and Drug Administration. Test Performed by: [facility] - [facility] [address] [place] [address] Blood specimen (specimen) 01/21/2019 1:51 PM EDT 01/21/2019 3:59 PM EDT Narrative Resulting Agency Comment Spec In Lab Flavia Landon APRN LAB SEND OUT ORDERAB LES Performing Organization Address [facility] Co de Phone Number [facility] [place] [address] * (ABNORMAL) Iron and TIBC (01/21/2019 1:51 PM EDT) [facility] Iron 32 30 - 150 mcg/dL [facility] TIBC 310 250 - 450 mcg/dL [facility] Iron Saturation 10(L) 20 - 50 % [facility] Blood specimen (specimen) 01/21/2019 1:51 PM EDT 01/21/2019 2:04 PM EDT Narrative Resulting Agency Comment Spec In Lab Flavia Landon APRN CHEMISTRY ORDERABLES [facility] [place] [address] * Hemoglobin A1c (01/21/2019 1:51 PM EDT) Hemoglobin A1c 5.1 4.3 - 5.6 % [facility] Comment: Reference Range: 4.3 - 5.6% 5.7 - 6.4% - Increased Risk of Developing Diabetes Mellitus >= 6.5% - Consistent with diagnosis of Diabetes Mellitus In the absence of hyperglycemia (i.e. plasma glucose > 200 mg/dL) or classic symptoms of hyperglycemia a repeat measurement of HbA1c should be performed on a separate sample to confirm the diagnosis. Diagnosis and Classification of Diabetes Mellitus, Diabetes Care 2013; 36: Suppl. 1, S67-43 Estimated Average Glucose 100 mg/dL [facility] Comment: eAG equivalents for HbA1c percentages: HbA1c(%) ?eAG(mg/dL) 6.0 ?126 6.5 ?140 7.0 ?154 7.5 ?169 8.0 ?183 8.5 ?197 9.0 ?212 9.5 ?226 10.0 ? 240 Limitations: The eAG calculation has not been validated on women, individuals below 18 years old and above 70 years old, and individuals with hemoglobinopathies. Additional resources are available on the ADA website. Daniel SYED, Jenniffer J, Lupis R, et al. ??Translating the A1C assay into estimated average glucose values. ??Diabetes Care 2008:31(8):6096-3319. Blood specimen (specimen) 01/21/2019 1:51 PM EDT 01/21/2019 2:04 PM EDT Narrative Resulting Agency Comment Spec In Lab Flavia Landon INSPECTOR BALL POINTS CHEMISTRY ORDERABLES Performing Organization Address [facility] Co de Phone Number [facility] [place] [address] * (ABNORMAL) Prealbumin (01/21/2019 1:51 PM EDT) Prealbumin 19(L) 20 - 40 mg/dL [facility] Comment: Prealbumin levels are generally lower in the pediatric population; adult concentrations are usually attained near puberty. Blood specimen (specimen) 01/21/2019 1:51 PM EDT 01/21/2019 2:04 PM EDT Narrative Resulting Agency Comment Spec In Lab Flavia Mabryoie INSPECTOR [employer]IN[employer] CHEMISTRY ORDERABLES Performing Organization Address [facility] Co de Phone Number [facility] [place] [address] * (ABNORMAL) Comprehensive metabolic panel (non-fasting) (01/21/2019 1:51 PM EDT) Glucose 90 65 - 199 mg/dL [facility] Comment:Diabetes: >=200 mg/d L plus symptoms Blood Urea Nitrogen 9 8 - 18 mg/dL [facility] Creatinine 0.53(L) 0.70 - 1.20 mg/dL [facility] Sodium 142 135 - 145 mmol/L [facility] Potassium 4.1 3.5 - 5.0 mmol/L [facility] Comment: Please note: ??Patients with WBC >100,000 may have falsely elevated Potassium levels. ??For accurate Potassium quantification in these patients send serum separator tube (gold top) for subsequent determinations. ??Contact the Clinical Chemistry Laboratory if there are any questions. Chloride 106 98 - 107 mmol/L [facility] Carbon Dioxide 26 22 - 31 mmol/L [facility] Anion Gap 10 5 - 15 mmol/L [facility] Calcium 9.6 8.5 - 10.5 mg/dL [facility] Protein, Total 7.2 6.1 - 8.0 gm/dL [facility] Albumin 4.6 3.2 - 5.2 gm/dL [facility] Aspartate Aminotransferase 14 0 - 30 unit/L [facility] Alanine Aminotransferase 13 0 - 30 unit/L [facility] Alkaline Phosphatase 76 40 - 104 unit/L [facility] Bilirubin, Total 0.2 0.2 - 1.3 mg/dL [facility] Est Glomerular Filtration Rate 125 >=60 mL/min/1. 73 m?? [facility] Comment: The eGFR was calculated using the CKD-EPI equation. As with all creatinine based estimates of kidney function, eGFR values calculated with the CKD-EPI equation are not accurate in patients with acute kidney failure, extremes of body mass or the acutely ill. [email or web address] ADAnkf eGFR 145 >=60 mL/min/1. 73 m?? [facility] Comment: The eGFR was calculated using the CKD-EPI equation. As with all creatinine based estimates of kidney function, eGFR values calculated with the CKD-EPI equation are not accurate in patients with acute kidney failure, extremes of body mass or the acutely ill. [email or web address] Blood specimen (specimen) 01/21/2019 1:51 PM EDT 01/21/2019 2:04 PM EDT Narrative Resulting Agency Comment Spec In Lab Flavia Landon APRN CHEMISTRY ORDERABLES Performing Organization Address City/[facility]/ZIP Co de Phone Number [facility] [place] [address] * Hemogram (01/21/2019 1:51 PM EDT) White Blood Cell 8.0 4.0 - 9.5 x10(3)/[facility] LABORATORY Red Blood Cell 4.88 4.00 - 5.21 x10(6)/[facility] LABORATORY Hemoglobin 13.4 11.7 - 15.5 gm/dL [facility] Hematocrit 42.1 35.7 - 45.8 % [facility] Mean Cell Volume 86.3 82.6 - 94.4 fL [facility] Mean Cell Hemoglobin 27.5 27.1 - 32.0 pg [facility] Mean Cell Hemoglobin Concentration 31.8 31.7 - 35.0 gm/dL [facility] Platelet 261 145 - 357 x10(3)/[facility] LABORATORY RDW Standard Deviation 43.4 37.0 - 46.0 [facility] LABORATORY RDW coefficient of variation 13.7 11.5 - 14.1 % [facility] Mean Platelet Volume 10.6 7.6 - 12.9 fL [facility] NRBC% auto 0.0 % [facility] NRBC Absolute 0.000 0.000 - 0.000 x10(3)/[facility] LABORATORY Blood specimen (specimen) 01/21/2019 1:51 PM EDT 01/21/2019 2:04 PM EDT Narrative Resulting Agency Comment Spec In Lab Flavia Landon APRN HEMATOLOGY ORDERABLE S Performing Organization Address City/[facility]/ZIP Co de Phone Number [facility] [address] documented in this encounter Visit Diagnoses Diagnosis Disorder of iron metabolism Other disorders of iron metabolism Status post bariatric surgery Bariatric surgery status Intestinal malabsorption, unspecified type Vitamin D deficiency Unspecified vitamin D deficiency Iron deficiency anemia secondary to inadequate dietary iron intake documented in this encounter Care Teams Vp Strategy Relationship Specialty Start Date End Date Kezia Aguirre MD [address] [place] [address] PCP - General Family Medicine 12/24/16 12/30/22 documented as of this encounter
--- OUTSIDE RECORDS SUMMARY | 2024-05-25 14:51 | XMS_ITS | Encounter Summary ---
Author Organization [facility] Address [facility] [place] [address] Care Team Providers Care It Program Engagement Director Name Role Phone Kezia Aguirre MD Primary Care Provider [phone] Reason for Visit * Reason Comments Patient Education pre bariatric surger y education Encounter Details Date Type Department Care Team (Late st Contact Info) Description 09/08/2018 12:30 PM EST Office [place] [phone] Flavia Landon APRN [facility] DR [facility] [place] [address] [facility] [place] [address] Encounter for pre-bariatric surgery counseling and education; Preventive medication therapy needed Social History Tobacco Use Types Packs/Day Years [...] Sign Reading Time Taken Comments Blood Pressure 142/86 09/08/2018 12:11 PM EST Pulse 75 09/08/2018 12:11 PM EST Temperature - - Respiratory Rate 19 09/08/2018 12:11 PM EST Oxygen Saturation 100% 09/08/2018 12:11 PM EST Inhaled Oxygen Concentration - - Weight 131.1 kg (289 lb) 09/08/2018 12:11 PM EST Height - - Body Mass Index 48.09 08/28/2018 8:16 AM EST documented in this encounter Patient Instructions * Patient Instructions* Flavia Landon APRN - 09/08/2018 12:30 PM EST BARIATRIC SURGERY DISCHARGE INFORMATION BARIATRIC SUPPORT TEAM CONTACT NUMBERS (Mon-Fri 8am - 5pm): General Surgery and Bariatric Surgery [phone] Bariatric Surgeons: Akil Block and Grcay [phone] Seating And Mobility Technologist: [phone] Dietitians: [phone] Outside of regular business hours, including weekends and holidays: Ask for General Surgery resident business applications specialist [phone] FOR EMERGENCIES: CALL 911 (trouble breathing, chest [...] weeks at the General Surgery Outpatient Clinic (Dietetic Aide 4, [facility]). Future Appointments Date Time Provider Department Center 09/08/2018 12:30 PM Flavia Landon APRN [facility] 10/15/2018 10:30 AM Falvia Landon APRN [facility] 01/21/2019 [...] Do not soak wound (no baths, no swimmings) for 3 weeks after surgery ACTIVITY, LIFTING [...] Follow up with primary care provider or print support specialist in 1-2 weeks in order to [...] have anemia, iron deficiency or regular menses) Vitamin D 50,000 units weekly for 6 months FOLLOW-UP CARE: ?? It is IMPORTANT to [...] yearly for life. documented in this encounter Progress Notes * Flavia Landon APRN - 09/08/2018 12:30 PM EST Tiffanie attended a comprehensive two hour group pre-operative class today, which included discussion of pre and post operative instructions included in the [facility] Bariatric Surgery Program Education Handbook. The one hour nutrition component of the class was taught by the BSP RD. Updates since last visit: no changes since last seen, has been finding stage 2 foods that she can tolerate, does not like milk so is finding other high protein options. OR date: 09/25/2018 [place] gastric bypass, Dr Dubose Individualized plan of care: Tiffanie has no special needs jarret operatively Patient Active Problem List Diagnosis Code ??? Breast hypertrophy N62 ??? Morbid obesity E66.01 ??? 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 Insomnia G47.00 ??? Major depressive disorder- reports has learned many coping mechanisms and feels she is in a very good place for surgery and had adequate coping mechanisms to manage the changes that come with surgery. F32.9 ??? Anxiety disorder F41.9 Medications 09/08/18 1406 Medication Sig Taking? omeprazole (PRILOSEC) 20 mg Capsule, Delayed Release(E.C.) Take 1 capsule by mouth daily for 90 days. Start at discharge to prevent ulcer. Take 30 minutes before breakfast Yes multivitamin (THERAGRAN) Tablet Take 1 tablet by mouth daily. Yes ergocalciferol (ERGOCALCIFEROL) 50,000 unit Capsule Take 1 capsule by mouth once a week for 24 doses. Yes Allergies Allergen Reactions ??? Cough Syrup [Guaifenesin] Anaphylaxis ??? Spider Venom Other (See Comments) Ask patient. Recommendations for post discharge VTE prophylaxis (unless change in condition during hospitalization that would contraindicate treatment): Post discharge enoxaparin not indicated Prescriptions provided at today's visit: sent electronically to pharmacy - Ursodiol is not indicated as pt is s/p cholecystectomy - Omeprazole 20 mg once daily x 3 months, to start upon discharge for ulcer prevention. May be refilled if symptomatic. Sent electronically to [facility] in [facility]. - Enoxaparin post operatively is not indicated OTC Vitamin and mineral supplements required post discharge: ?? Multivitamin with minerals twice daily ?? Vitamin B12 500 mcg by mouth once daily ?? Calcium citrate 600 mg with Vitamin D 400 units twice daily ?? Iron with Vitamin C, 50-66 mg once daily (take iron with vitamin C 550 mg to help with absorption) ONLY for patients with iron deficiency, anemia or menstruating females ?? Vitamin D 50,000 units weekly for 6 months. Bariatric Surgery Program Pathway and review of status with the requirements of the Bariatric Surgery Program 1. Education: She previously attended a Introduction to the [facility] Bariatric Surgery Program seminar, a two hour meeting that provides a program overview as well as expectations. The [facility] Bariatric Surgery Program Educational seminar requirement (3 seminars with post-testing) has been met. The BSP Educational Handbook was provided at visit #1. 2. Pre-operative programmatic evaluations have been done, as noted in previous pathway review. 3. Bariatric Surgery Program evaluations with RD and SOCIAL MEDIA SPECIALIST have taken place, as noted in previous pathway documentation 4. Weight requirements have been achieved and documented. 5. All pre-operative requirements were achieved. 6. Surgical consultation has taken place, and she has been approved to proceed with surgery by surgeon and insurer. Next steps in pathway: ?? During hospitalization for bariatric surgery, a standard bariatric surgery order set is followed. ?? Routine post-operative follow up with labwork is done at months 1,4,12,18 and 24, yearly thereafter, and PRN. High risk patients are followed more frequently. Some of the topics reviewed during group discussion today included: ?? day of surgery and post-op routine care/ locations: Admissions/SDP/PACU//3/2 [place] units ?? medications that increase the risk of bleeding including NSAIDs, ASA and Plavix to be avoided per guidelines pre and post-operatively ?? DVT/VTE prevention and signs of DVT/PE. ?? Inpatient management for VTE prevention: venodynes, ambulation, Enoxaparin 40 units BID during inpatient stay. ?? Indications for extended Enoxaparin 10 days post discharge: A. patients with BMI >60 or prior VTE OR B. 2 or more of the following: age >50, BMI >50, male gender, sleep apnea, varicose veins, venous insufficiency, history of oral contraceptive or hormone or post-menopausal hormone replacement use within 30 days of surgery, and recent smoking ?? guidelines for patients treated with oral anticoagulants per Thrombosis Clinic ?? diabetes and hypertension monitoring post-operatively ?? signs and symptoms of infection as well as emergency signs and symptoms ?? common post-operative complaints ?? management of sleep apnea during hospitalization and post operatively. The importance of post-operative follow-up with Sleep Center after weight loss was stressed. ?? recommendations for psychiatric medications: should continue uninterrupted after surgery ?? activity post surgery/ return to work recommendations ?? pre-operative and post-operative dietary recommendations ?? post-op vitamin and mineral supplementation ?? routine BSP post-operative follow-up: 3 weeks. 4, 12,18, 24 months and yearly for LIFE ?? routine Primary Care post-operative follow up: at 10-14 days after surgery to monitor chronic health problems such as diabetes and hypertension, since the requirement for antihypertensive and diabetic medications may decrease or be discontinued A preliminary copy of the discharge instructions was provided, which is also available in the patient handbook. Tiffanie appeared to have a good understanding of the information presented, and asked appropriate questions. She satisfactorily completed the post-test administered, and achieved a grade of 100%. All her questions were answered. Time spent in individual counseling and coordination of care: 5 minutes Time spent in group counselin minutes documented in this encounter Plan of Treatment Upcoming Encounters Date Type Department Care Team (Late st Contact Info) Description 06/02/2024 8:00 AM EDT Office [place] [address] Julienne Lacey APRN [facility] [place] [place] [address] 07/24/2024 1:30 PM EST Office Visit [place] [phone] Jenni Brennan MD [facility] [address] [place] [address] documented as of this encounter Visit Diagnoses Diagnosis Encounter for pre-bariatric surgery counseling and education Preventive medication therapy needed documented in this encounter Care Teams It Program Engagement Director Relationship Specialty Start Date End Date Kezia Aguirre MD [address] [place] [id number] PCP - General Family Medicine 12/24/16 12/30/22 documented as of this encounter
--- OUTSIDE RECORDS SUMMARY | 2024-05-25 14:51 | XMS_ITS | Encounter Summary ---
[place] [address] Care Team Providers Care Content Management Specialist Name Role Phone Kezia Agurire MD Primary Care Provider [phone] Reason for Visit * Auth/Cert Specialty Diagnoses / Procedures Referred By Contac t Referred To Contact Diagnoses Morbid obesity Other sleep disorders MORBID OBESITY Procedures PRO LAP GASTRIC BYPASS/SHELBIE-EN-Y PRO UPPER GI ENDOSCOPY, DIAGNOSTIC @LAPAROSCOPIC GASTROPLASTY, (WRVU 29.4) ENDOSCOPY, UPPER GI, DIAGNOSTIC, WITH OR WITHOUT SPECIMENS Referral ID Status Reason Start Date Expiration Date Visits Re quested Visits Authorized [id number] 1 1 Encounter Details Date Type Department Care Team (Late st Contact Info) Description 09/30/2018 3:27 PM EST Anesthesia Event [place] [address] Elizabeth Holliday MD [facility] DR [place] [address] Florecita Amos, RN Anesthesia Record Procedure Summary Procedure Name Responsible Anesthesiologist Anesthesia Start Time Anesthesia Stop Time @LAPAROSCOPIC GASTROPLASTY W/ SHELBIE-EN-Y CONSTRUCTION (WRVU 29.4) (Abdomen) Elizabeth Holliday MD 09/30/18 1527 09/30/18 1830 Events Date Time Event Comment 09/30/2018 1505 1527 Start 1530 AN Verify 1532 An Start Data 1536 An Induction 1539 An Intubation 1540 Anesthesia Ready 1559 Procedure Start Local inject ion 1719 Quick Note 30 Fr bougie pa ssed without resistance under direct visualization 1819 Extubation/LMA Out 1820 an stop data 1829 Recovery or ICU Handoff Corine ent care was transferred to the destination unit staff after review of the patient's medical history, current anesthetic/surgical status and plan, according to the Provider Handoff Checklist. 1829 Stop Meds Name Total Midazolam 2 mg fentaNYL 100 mcg IV Lidocaine 100 mg Propofol 230 mg Rocuronium 120 mg ePHEDrine 5 mg Ondansetron 8 mg Dexamethasone 8 mg Propofol INF 933.8 mg Dexmedetomidine 28 mcg ceFAZolin (ANCEF) 3g in dextrose 5% 100 mL 3 g Sugammadex 250 mg HYDROmorphone 1 mg Lactated Ringers 1,700 mL * Agents Name O2 Air N2O Sevoflurane (et) * Blood No blood administrations on file. Lines, Drains, and Airways Type Details Placement Removal (RETIRED) Peripheral IV Line - Single Lumen 09/30/18; 1453; cephalic vein (lateral side of arm), left; [id number] catheter system; 18 gauge, 1 in length; [employer] INSURANCE RATER; distraction, intradermal injection, tolerated well, appears comfortable; no longer indicated, site care per policy/procedure, catheter/device intact, removed per policy/procedure; 10/01/18; 1500 09/30/18 1453 by Shan Michel RN 10/01/18 1500 by Silvia Reich RN ETT Mask Ventilation: Ea henny (1); ETT Type: Cuffed, Oral; ETT Size: 7 mm; Mac Blade: 3; Notes: Asleep, Stylette, Pre-O2; Attempts: 1; Laryngoscopy Grade: 1; ETT Placement Verified By: Auscultation, Capnometry, Visual; Secured at Teeth: 21 cm; Inserted by: darius amos; Removal Date: 09/30/18; Removal Time: 181809/30/18 1539 by Florecita Macario CRNA 09/30/18 1819 by Shan Mancia CRNA Incision 09/30/18; 1559; abdo men; laparoscopic puncture; LDA not present upon assessment; 04/14/20 09/30/18 1559 by Kezia Sheppard RN 04/14/20 0000 by Maria G Zazueta RN documented in this encounter Social History [...] OR Notes * Anesthesia Postprocedure Evaluation - Elizabeth Holliday MD - 10/02/2018 8:14 AM EST [facility] Department of Anesthesiology Post-procedure Note Patient: Tiffanie Monreal Procedure Summary Date: 09/30/18 Room / Location: [facility] OR [address] [place] [address] MAIN OR Anesthesia Start: 152 Anesthesia Stop: 1829 Procedures: @LAPAROSCOPIC GASTROPLASTY, (WRVU 29.4) (N/A Abdomen) ENDOSCOPY, UPPER GI, DIAGNOSTIC, WITH OR WITHOUT SPECIMENS (N/A Esophagus) Diagnosis: (MORBID OBESITY) Surgeon: Jerica Dubose MD Responsible Provider: Elizabeth Holliday MD Anesthesia Type: general ASA Status: 2 All Anesthesia Providers: Anesthesiologist: Elizabeth Holliday MD; Thomas Hudson DO INSURANCE RATER: Johanna Lopez CRNA; Shan Mancia CRNA Student Nurse Respiratory Therapy Aide: Florecita Amos RN Vitals Value Taken Time BP 122/69 09/30/2018 8:00 PM Temp 36.8 ??C (98.2 ??F) 09/30/2018 8:00 PM Pulse 85 09/30/2018 8:11 PM Resp 16 09/30/2018 8:11 PM SpO2 97 % 09/30/2018 8:34 PM Pain Level 7 09/30/2018 8:00 PM Vitals shown include unvalidated device data. Patient Location: PACU/[facility] Level of Consciousness: Awake and Alert Pain Management: Satisfactory Analgesia PONV: None Cardiovascular Status: At Baseline and Hemodynamically Stable Respiratory Status: At Baseline and Room Air Postoperative Fluid Status: Intravascular EUvolemia Possible Anesthetic Complications: NONE apparent at time of evaluation Final Primary Anesthesia Type: General (The anesthetic type performed was the same as planned.) Comments: ELIZABETH HOLLIDAY MD * Anesthesia Preprocedure Evaluation - Thomas Hudson DO - 09/29/2018 9:02 PM EST Pre-Anesthesia Evaluation for: Tiffanie Monreal a 33 y.o. female. Procedure(s): @LAPAROSCOPIC GASTROPLASTY, (WRVU 29.4) ENDOSCOPY, UPPER GI, DIAGNOSTIC, WITH OR WITHOUT SPECIMENS Patient Active Problem List Diagnosis ??? Morbid obesity Bariatric Surgery Program 1. Attended Introduction to the [facility] Bariatric Surgery Program seminar, a comprehensive two hour meeting that provides a program overview, education on bariatric surgeries offered at [facility], risks andbenefits, as well as patient expectations and follow up: [facility] BSP Educational seminars viewed: 3. Grades on post-testin-100%. The [facility] Educational Handbook is provided at preoperative visit #1. 2. Pre-operative programmatic evaluations required: PCP evaluation and letter of support to proceedwith surgery, [facility] labwork (can be done on day of visit #1) and psychological evaluation- minimum of2 visits. 3. Bariatric Surgery Program evaluations with RD and CAR SUPERVISOR: Not scheduled 4. Weight history: 297 pounds on 06/12/11, 296 pounds on 07/21/08, 291 pounds on 11/25/12, 312 poundson 09/20/14, 302 pounds on 10/21/14, 303 pounds [...] well-being. History of binge eating and purging ??? Upper airway resistance syndrome with sleep fragmentation A. PSG done on 09/14/14: AHI 2.5/ hour. REM AHI 1.3/ hour. Majority of events seen in supine position. Vasile oxygen saturation 88%. Mean oxygen saturation 93%. Underestimation of severity due to minimal supine sleep. Recommendations: patient can be started on CPAP therapy with mask of choice. B. Sleep Center follow up at [facility] on 10/11/14: same as PSG ??? Insomnia ??? Major depressive disorder History of psychiatric admission 09/2013 for SI at [facility]. Not currently taking antidepressants at of January 2015 ??? Anxiety disorder ??? Breast hypertrophy Past Medical History: Diagnosis Date ??? Anxiety ??? Depression ??? Obesity Past Surgical History: Procedure Laterality Date ??? SECTION, LOW TRANSVERSE 2003 ??? SECTION, LOW TRANSVERSE 2007 ??? CHOLECYSTECTOMY, LAPAROSCOPIC ??? HYSTERECTOMY ??? TUBAL LIGATION Bilateral 2007 Social History Tobacco Use ??? Smoking status: Former Smoker Packs/day: 0.50 Years: 2.00 Pack years: 1.00 Types: Cigarettes Last attempt to quit: 03/27/2008 Years since quittin.5 ??? Smokeless tobacco: Never Used Substance Use Topics ??? Alcohol use: Yes Types: 1 Glasses of wine, 1 Cans of beer per week Social History Substance and Sexual Activity Drug Use No Allergies Allergen Reactions ??? Cough Syrup [Guaifenesin] Anaphylaxis ??? Spider Venom Other (See Comments) Ask patient. Medications: MAR and/or home medications have been reviewed. Physical Exam: There were no vitals filed for this visit. There is no height or weight on file to calculate BMI. Airway Assessment: Mallampati: II TM distance: >3 FB Neck ROM: full Cardiovascular Assessment: Rhythm: regular Rate: normal Pulmonary Assessment: breath sounds clear to auscultation Dental Assessment: Comment: No loose dentition Misc Assessment: Patient is wearing No contact(s). IV access: Peripheral line Anesthesia Plan: ASA 2 general, with a(n) intravenous induction 33 yr old female for gastric bypass surgery for morbid obesity. PMH: anxiety and depression. Labs reviewed. NPO for clear liquids from 12:00 noon No changes to her health. Region - Other Informed Consent: Anesthetic plan and risks discussed with patient. Plan discussed with INSURANCE RATER. PAT Staff Note documented in this encounter Plan of Treatment Upcoming Encounters Date Type Department Care Team (Late st Contact Info) Description 06/02/2024 8:00 AM EDT Office [place] [address] Julienne Lacey APRN [facility] [place] [address] 07/24/2024 1:30 PM EST Office Visit Weight and Wellness at [place] [phone] Jenni Brennan MD [facility] [address] documented as of this encounter Visit Diagnoses Not on filedocumented in this encounter Administered Medications Inactive Administered Medications - up to 3 most recent administrations Medication Order MAR Action Action Date Dose Rate Site ceFAZolin (ANCEF) 3g in dextrose 5% 100 mL 3 g, Intravenous, EVERY 3 HOURS, 1 dose, First dose on Sat09/30/18 at 1515, Administer over 30 Minutes, Intra-Operative (Intra-Procedure), Indication for (Active or Suspected): Prophylaxis Given 09/30/2018 3:45 PM EST 3 g dexamethasone (DECADRON) injection PRN, Starting on Sat09/30/18 at 1538, Until Sat09/30/18 at 1830, Anesthesia Intra-op, Routine Given 09/30/2018 3:38 PM EST 8 mg dexmedetomidine (PRECEDEX) injection PRN, Starting on Sat09/30/18 at 1537, Until Sat09/30/18 at 1830, Anesthesia Intra-op, Routine Given 09/30/2018 5:26 PM EST 8 mcg Given 09/30/2018 4:27 PM EST 4 mcg Given 09/30/2018 3:41 PM EST 8 mcg ePHEDrine 5 mg/mL multi-dose injection PRN, Starting on Sat09/30/18 at 1610, Until Sat09/30/18 at 1830, Anesthesia Intra-op, Routine Given 09/30/2018 4:10 PM EST 5 mg fentaNYL 50 mcg/mL multi-dose injection PRN, Starting on Sat09/30/18 at 1536, Until Sat09/30/18 at 1830, Anesthesia Intra-op, Routine Given 09/30/2018 4:48 PM EST 25 mcg Given 09/30/2018 4:01 PM EST 25 mcg Given 09/30/2018 3:36 PM EST 50 mcg HYDROmorphone (DILAUDID) injection PRN, Starting on Sat09/30/18 at 1810, Until Sat09/30/18 at 1830, Anesthesia Intra-op, Routine Given 09/30/2018 6:16 PM EST 0.4 mg Given 09/30/2018 6:10 PM EST 0.6 mg lactated Ringers infusion CONTINUOUS PRN, Starting on Sat09/30/18 at 1500, Until Sat09/30/18 at 1830, Anesthesia Intra-op New Bag 09/30/2018 5:[address] New Bag 09/30/2018 3:00 PM EST lidocaine (PF) (XYLOCAINE) 100 mg/5 mL (2 %) injection PRN, Starting on Sat09/30/18 at 1536, Until Sat09/30/18 at 1830, Anesthesia Intra-op, Routine Given 09/30/2018 3:36 PM EST 100 mg midazolam (PF) (VERSED) multi-dose injection PRN, Starting on Sat09/30/18 at 1527, Until Sat09/30/18 at 1830, Anesthesia Intra-op, Routine Given 09/30/2018 3:29 PM EST 1 mg Given 09/30/2018 3:27 PM EST 1 mg ondansetron (ZOFRAN) injection PRN, Starting on Sat09/30/18 at 1551, Until Sat09/30/18 at 1830, Anesthesia Intra-op, Routine Given 09/30/2018 5:59 PM EST 4 mg Given 09/30/2018 3:51 PM EST 4 mg propofol (DIPRIVAN) 10 mg/mL bolus injection (Anesthesia) PRN, Starting on Sat09/30/18 at 1536, Until Sat09/30/18 at 1830, Anesthesia Intra-op Given 09/30/2018 5:48 PM EST 30 mg Given 09/30/2018 3:36 PM EST 200 mg propofol (DIPRIVAN) infusion CONTINUOUS PRN, Starting on Sat09/30/18 at 1537, Until Sat09/30/18 at 1830, Anesthesia Intra-op, Routine New Bag 09/30/2018 3:37 PM EST 50 mcg/kg/min 38.6 mL/hr rocuronium (ZEMURON) multi-dose injection PRN, Starting on Sat09/30/18 at 1537, Until Sat09/30/18 at 1830, Anesthesia Intra-op, Routine Given 09/30/2018 5:48 PM EST 20 mg Given 09/30/2018 5:00 PM EST 10 mg Given 09/30/2018 4:09 PM EST 20 mg sugammadex (BRIDION) 100 mg/mL injection PRN, Starting on Sat09/30/18 at 1808, Until Sat09/30/18 at 1830, Anesthesia Intra-op, Routine Given 09/30/2018 6:08 PM EST 250 mg documented in this encounter Care Teams Content Management Specialist Relationship Specialty Start Date End Date Kezia Aguirre MD [address] [place] [address] PCP - General Family Medicine 12/24/16 12/30/22 documented as of this encounter
--- OUTSIDE RECORDS SUMMARY | 2024-05-25 14:51 | XMS_ITS | Encounter Summary ---
Author Organization [facility] [place] [address] Care Team Providers Care Director Check Name Role Phone Kezia Aguirre MD Primary Care Provider [phone] Encounter Details Date Type Department Care Team (Late st Contact Info) Description 04/28/2019 Telephone [place] [phone] Casandra Alvarenga Social History Tobacco Use Types [...] * Telephone Encounter - Casandra Alvarenga - 04/28/2019 2:17 PM EDT Left message for patient to call re: her upcoming appt date/time/provider change documented in this encounter Plan of Treatment Upcoming Encounters Date Type Department Care Team (Late st Contact Info) Description 06/02/2024 8:00 AM EDT Office [place] [phone] Julienne Lacey APRN [facility] [place] [address] 07/24/2024 1:30 PM EST Office Visit [place] [phone] Jenni Brennan MD [facility] [address] documented as of this encounter Visit Diagnoses Not on filedocumented in this encounter Care Teams Director Check Relationship Specialty Start Date End Date Kezia Aguirre MD [address] [place] [address] PCP - General Family Medicine 12/24/16 12/30/22 documented as of this encounter
--- OUTSIDE RECORDS SUMMARY | 2024-05-25 14:51 | XMS_ITS | Encounter Summary ---
Author Organization [facility] [place] [address] Care Team Providers Care Production Clerk Name Role Phone Kezia Aguirre MD Primary Care Provider [phone] Encounter Details Date Type Department Care Team (Late Contact Info) Description 01/28/2019 Orders [place] [address] [address] [facility] [address] [facility] [address] Vitamin D deficiency Social History Tobacco Use Types Packs/Day Years [...] 8:00 AM EDT Office [place] [phone] Julienne Lacey [facility] [place] [address] 07/24/2024 1:30 PM EST Office Visit [place] [address] Jenni Brennan MD [facility] DR [facility] [address] documented as of this encounter Visit Diagnoses Diagnosis Vitamin D deficiency Unspecified vitamin D deficiency documented in this encounter Care Teams Production Clerk Relationship Specialty Start Date End Date Kezia Aguirre MD [address] [place] [address] PCP - General Family Medicine 12/24/16 12/30/22 documented as of this encounter
--- OUTSIDE RECORDS SUMMARY | 2024-05-25 14:51 | XMS_ITS | Encounter Summary ---
Author Organization [facility] [place] [address] Care Team Providers Care Java Jsf Developer Name Role Phone Kezia Aguirre MD Primary Care Provider [phone] Reason for Visit * Reason Comments Follow-up 1 year follow up S/P gastric bypass Encounter Details Date Type Department Care Team (Late st Contact Info) Description 11/20/2019 12:00 PM EDT TH Visit (TeleHealth) [place] [address] Analy Cervantes, BAGGER MEAT [facility] [address] Liane Glass, TALHA [facility] [place] [address] Vitamin D deficiency; Iron deficiency; Low vitamin B12 level; Post-resection malabsorption; Status post bariatric surgery Social [...] this encounter Patient Instructions * Patient Instructions* Liane Glass, RD - 11/20/2019 12:00 PM EDT [facility] clerical support Florecita [phone] and Casandra [phone] Dietitians: [phone] Surgeons/ nurse practitioners: [phone] Nurse line: [phone] Testing: Labwork: When you feel comfortable doing so- a requisition is enclosed. Lab testing done at outside facilities takes longer to process. Copies of the lab results are scanned in your [facility] medical record, and can be viewed under scanned documents. You will receive a letter of the results indicating treatment recommendations, and abnormal lab results will be identified. A copy of your visit today is sent to your primary patient care associate Next visit: 6 months Routine visits are done at 4.8,12, 18 and 24 months after surgery, and yearly thereafter. Please call [phone] if you do not receive an appointment by 3-4 weeks prior to the expected visit. Vitamins: further recommendations pending lab results The following vitamins are recommended: ??? Multivitamins with minerals twice daily- Continue Bariatric Fusion 2 pills twice daily. ??? Vitamin B12 2000 mcg by mouth once daily or as recommended ??? Vitamin D 50,000 IU weekly as prescribed. Nutrition recommendations: - Great work meeting protein and fluid goals. - Your Daily Goals: ?? 1,000-1,200 calories per day (300 calories per meal, 100 calories per snack, 1-2 snacks per day) ?? 60 grams of protein per day (20 grams per meal) ?? 48-64 oz of non-caloric and hydrating fluids per day (6-8, 8 oz cups) ?? Do not drink with meals- pushes food through more quickly, can cause upset stomach Activity: Keep up the good work exercising regularly. ??? Aim for 30 minutes of exercise [...] surgery. Alcohol is not recommended until at least1 year post surgery, and after goal weight has been achieved f non-prescribed drugs and treet drugs is unsafe Anti-inflammatory medications such as Ibuprofen (Advil), Aleve (Naproxen), Excedrin, should be usedsparingly after gastric bypass, since they increase the risk of ulcer and bleeding. Potential lifetime risks of gastric bypass include risk of ulcer, which is increased with alcohol and antiinflammatory medications and internal hernia (less than 5%), which may be increased with higher than predicted weight loss Call us: ??? If you have concerns. ??? If you have unexplained abdominal pain. ??? if you see blood in your stool or vomit blood ??? If you have prolonged vomiting Post Surgery Support Group: Our post surgery support group meets at [facility]- no registration required 1. on the saturday of every month from 1:00 PM-2:00 PM 2. On the saturday of the month from 4:30 PM to 5:30 PM Nutrition and Activity apps- Baritastic, My Fitness Pal, Lose It, My Plate Internet resources: www.[employer] www.IFTTT www.Amulyte www.Asset International/blog [facility] facebook page: https://www.facebook.com/[facility] Books & Magazines: - Recipes for Life After Weight Loss Surgery by Ally Schmitt - Shrink Yourself by Dr Alban Mendez - Eating Well - www.Quelle Energie - Cooking Light- www.cookinglight.SmartwareToday.com Anxiety: The Happiness Trap by Carlos A Tee The Mindfulness and acceptance workbook for anxiety By Rodriguez Zelaya. Mindful eating: What are you Hungry For? By Eugene Braden The Mindful Diet by Simran Hdez and the [facility] group. Emotional eating: End Emotional Eating by Liane Khalil Calming the Emotional Storm Lisseth Ayala documented in this encounter Progress Notes * Liane Glass, RD - 11/20/2019 12:00 PM EDT Bariatric Nutrition Telephone Office Visit Phone call made with Analy Cervantes APRN Topics Discussed/Patient Concerns: ?? Everything is going OK. ?? Still working 40-50 hours per week. OBJECTIVE: Date of Surgery:??09/30/18 Type of Surgery:??RNY gastric bypass Weight on 07/24/19: 215.8#, EWL 55% Current weight 200# per pt. MEDICATIONS: Vitamin/Mineral Supplements??(reported by patient): * Of note, pt's vitamin B12 and vitamin D levels are decreasing. Recommendations on 08/03/19: 1. Increase bariatric fusion vitamins to 2 tablets twice a day. 2. Start vitamin B12 2000 mcg daily 3. Start vitamin D 50,000 units ONCE A WEEK for the next 6 months 4. Continue iron with vitamin C daily until your next visit. Prescriptions were sent to your pharmacy for B12 and vitamin D Repeat labwork: B12 level in 1 month. A requisition is enclosed to have done locally. Supplement Type Brand/Form Dosage/Amount Frequency Comments Multivitamin Bariatric Fusion 2 wafer Twice daily ?? Calcium ? In Fusion Vitamin??B12 ?? 2000 mcg?? daily Iron ? In Fusion Biotin ?? 1 pill daily ?? Vitamin D2 prescription 04602 IU weekly ? Food Allergies/Intolerances:??pork- not as bad as it was. ([place] or pork chops). Dairy- milk, ice cream- stomach cramps, diarrhea. Can do cheese, cottage cheese, small amount regular yogurt, Guatemalan yogurt Tracking Intake: Continues to track. Paper and Pencil log. Jots it down at the end of the day. Reviews log at the end of the week. 24- Hour Intake: limits intake of bread as it's not well tolerated Breakfast Bowl of fruit with PB on the side,2 small [place] cheese packs AM Snack Small Guatemalan yogurt Lunch 3-4 oz. Chicken on top of vegetables PM Snack occ PB with apple or string cheese or cheddar cheese Dinner ~3 oz. Steak, ~1/4 cup broccoli w/cheese and rice- 4-5 Tbs HS Snack None. Protein- grams/day: 60+ Hydrating fluids - oz/day: 1.5 gallons water, plus 1-2 Diet Snapples Soda: Took a sip and it didn't agree ETOH: none Caffeine: None. Other: ?? Vomiting/ regurgitation: none ?? Nausea: none ?? Constipation/diarrhea: None. BM - 1-2 x daily Exercise: runs on [employer] 3-4 x week for 30-45 minutes. Was walking outside, got 3 inches snow. Typically goes to gym on her days off; 60-90 minutes strength training. ASSESSMENT: 14 months s/p RNYGB. Tiffanie is doing well s/p bariatric surgery. She is meeting protein and fluid needs. She continues to add new foods into her diet. Reviewed vitamin and mineral supplements. She exercises regularly. PLAN: ?? Provided support/encouragement and reinforced importance of meeting nutritional goals. ?? Reviewed nutrition and vitamin and mineral supplement recommendations. ??? Multivitamins with minerals twice daily- Continue Bariatric Fusion 2 pills twice daily. ??? Vitamin B12 2000 mcg by mouth once daily or as recommended ??? Vitamin D 50,000 IU weekly as prescribed. ?? Follow up in 6 months. * Analy Cervantes T - 11/20/2019 12:00 PM EDT Bariatric Surgery Program phone visit Tiffanie verbally consents to this telephone visit and understands that this visit may be billed, similar to a clinic office visit. The visit is done via phone vs in person visit due to the covid-19 pandemic Reason for visit: Follow up S/P laparoscopic Shelbie-en-Y gastric bypass 09/30/2018 Complications summary: Early none Late none Visits summary: Compliance with [facility] follow up: good Attendance at [facility] post-operative graduate support group meetings:none Pre-op 08/25/18 Wt (lbs) 295 BMI 49 HT: 65 Post-op %EBW lost Supplement compliance Labwork 10/24/18 275 45.8 14 Good, using fusion - 01/21/19 238 39.7 40 Fusion 01/21: Hg 13.4 Hct 42.1.ferritin 86 iron 32 sat 10% Folate 8.6 B12 285 NlCMP D 26 A1c 5.1 Prealbumin 07/24/19 215 35.9 55 Bariatric Fusion 3-4 a day Iron QD D 50 K/wk 07/24: ferritin 46 iron 108 sat 33% B12 248 Folate >20 D 21 11/20/19 Reports at 200 - - Bariatric Fusion 3-4 a day Iron QD D 50K /wk 11/19: Ordered, pending Date Evaluation Results 12/2018 Primary care Was seen for lightheadedness, dizziness- low blood glucose, she has periods with low intake N/a EGD N/a Colonoscopy Problem List/ updated today ??? Preoperative Class III obesity. S/P gastric bypass ??? Upper airway resistance syndrome with sleep fragmentation/ insomnia: post surgery sleeps well, no concerns - no preoperative treatment ??? Breast hypertrophy ??? Psychosocial issues: reports as stable - Anxiety disorder - MDD ??? Vitamin B12 deficiency (285 in January 2019): repeat pending ??? Vitamin D deficiency preoperatively (11 ): Current treatment with vitamin D 50,000 units weekly, repeat pending ??? Iron deficiency: continues treatment with iron, repeat pending Past Surgical History: Procedure Laterality Date ??? SECTION, LOW TRANSVERSE 2003 ??? SECTION, LOW TRANSVERSE 2007 ??? CHOLECYSTECTOMY, LAPAROSCOPIC ??? HYSTERECTOMY ??? PRO LAP GASTRIC BYPASS/SHELBIE-EN-Y N/A 09/30/2018 @LAPAROSCOPIC GASTROPLASTY, (WRVU 29.4) performed by Jerica Dubose MD at [facility] OR ??? PRO UPPER GI ENDOSCOPY, DIAGNOSTIC N/A 09/30/2018 ENDOSCOPY, UPPER GI, DIAGNOSTIC, WITH OR WITHOUT SPECIMENS performed by Jerica Dubose MD at [facility] OR ??? TUBAL LIGATION Bilateral 2007 Allergies Allergen Reactions ??? Cough Syrup [Guaifenesin] Anaphylaxis ??? Spider Venom Other (See Comments) Medications 11/20/19 1219 Medication Sig Taking? ergocalciferol (VITAMIN D2) 50,000 unit Capsule Take 1 capsule by mouth once a week for 24 doses. Yes Cyanocobalamin 1,000 mcg Tablet, Sublingual Place 2 tablets under the tongue daily for 180 days. Yes multivit-min/iron/folic acid/K (BARIATRIC MULTIVITAMINS ORAL) Take 1 tablet by mouth 4 times daily.Yes iron,carbonyl-vitamin C (VITRON-C) 65 mg iron- 125 mg Tablet, Delayed Release (E.C.) Take 1 tablet by mouth daily. Yes nystatin (MYCOSTATIN) Powder Apply topically 4 times daily. To skin fold rash as needed Yes Potential Bariatric Surgery Complications/ occurrences since last visit Yes No Bariatric surgery related visits to emergency department or other unplanned visit to a health care facility x Nephrolithiasis or atraumatic fracture since x Changes to health/ evaluations/ social history since last visit: as per updated problem list and e-DH Duration since procedure: 14 months post gastric bypass Weight change since last visit: reports as 15 pounds. Subjective. Patient concerns at today's visit: Tiffanie is feeling well overall. She reports she had skipped the bariatric supplements for a few weeks, then noted hair falling out, and restarted supplements, with improvement. She did not have a repeat B12 level as recommended after last visit. 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 She has an excellent regular exercise regimen. Dietary, physical activity and bowel regimen: As per RD note. 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 Tiffanie's healthy lifestyle efforts were acknowledged. Dietary/ exercise recommendations: as per Mis Glass RD LD ?? E-DH medical record since last BSP visit reviewed. Medication list was reviewed and updated. ?? Body contouring surgery discussed, advised weight needs to be stable for at least 3-6 months forinsurer coverage. We will discuss at next visit, or if weight stabilizes prior to that time, she will call us for a referral.. ?? Next BSP visit: 6 months ?? Next labwork: ordered, pending ?? Vitamin and mineral supplement recommendations:as per RD, further recommendations pending lab results. ?? Advised to call if develops unexplained abdominal pain, concerns or questions. Risks specific tobariatric procedure discussed She was provided with a Bariatric Program Summary report via e-DH/ mail which included the above recommendations, as well as information on vitamin and mineral supplementation, fluids, exercise and support group meetings. She has had an opportunity to have all her questions answered and is in agreement with the plan of care. I provided care to the patient today via telephone call, 20 minutes telephone visit was spent in discussion with patient on above. RECOMMENDED BARIATRIC SURGERY PROGRAM POSTOPERATIVE FOLLOW-UP: Follow up: done at 4, 8,12 and 18 and 24 months, and yearly thereafter. High risk patients are evaluated on a more frequent basis. *Supplement recommendations: Multivitamin with minerals twice a day, [...] If labwork is done by the primary patient care associate: pleasefax a copy to the Bariatric Surgery Program, General Surgery Clinic, [facility], ), Questions regarding [facility] Bariatric Surgery Program patients: please call the Bariatric Surgery Program at [phone] documented in this encounter Plan of Treatment Upcoming Encounters Date Type Department Care Team (Late st Contact Info) Description 06/02/2024 8:00 AM EDT Office [place] [phone] Julienne Lacey APRN [facility] [place] [address] 07/24/2024 1:30 PM EST Office Visit [place] [phone] Jenni Brennan MD [facility] [place] [address] documented as of this encounter Visit Diagnoses Diagnosis Vitamin D deficiency Unspecified vitamin D deficiency Iron deficiency Iron deficiency anemia, unspecified Low vitamin B12 level Other B-complex deficiencies Post-resection malabsorption Other and unspecified postsurgical nonabsorption Status post bariatric surgery Bariatric surgery status documented in this encounter Care Teams Java Jsf Developer Relationship Specialty Start Date End Date Kezia Aguirre MD [address] [place] [address] PCP - General Family Medicine 12/24/16 12/30/22 documented as of this encounter
--- OUTSIDE RECORDS SUMMARY | 2024-05-25 14:51 | XMS_ITS | Encounter Summary ---
Author Organization [facility] Address [facility] [place] [place] [address] Care Team Providers Care Customer Contact Representative Name Role Phone Kezia Aguirre MD Primary Care Provider [phone] Encounter Details Date Type Department Care Team (Latest Contact Info) Description 04/14/2020 7:04 AM EDT - 04/14/2020 11:10 AM EDT Hospital Encounter [place] [phone] Jerica Bronson MD [facility] [place] [address] Discharge Disposition: Home Social History Tobacco Use [...] Sign Reading Time Taken Comments Blood Pressure 126/80 04/14/2020 10:55 AM EDT Pulse 60 04/14/2020 10:34 AM EDT Temperature 36.4 ??C (97.5 ??F) 04/14/2020 10:34 AM E DT Respiratory Rate 16 04/14/2020 10:55 AM EDT Oxygen Saturation 99% 04/14/2020 10:55 AM EDT Inhaled Oxygen Concentration - - Weight 94.3 kg (208 lb) 04/14/2020 7:57 AM EDT Height 165.1 cm (5' 5) 04/14/2020 7:57 AM EDT Body Mass Index 34.61 04/14/2020 7:57 AM EDT documented in this encounter Discharge Instructions * Patient Instructions* Viridiana Elise MD - 04/14/2020 10:38 AM EDT Discharge Instructions You underwent an EGD. You had a small erosion in your gastric pouch with evidence of healing. Medications: ?? Resume all usual home medications. ?? Continue to take Protonix 40 mg twice daily and Carafate Driving Restrictions: ?? No driving if you are too sore from surgery to enter or exit your vehicle comfortably, or if youare too sore to easily check your blind spot. No driving while using prescription pain medications Activities: ?? No restrictions Diet: ?? Start with clear liquids. Resume your normal diet as tolerated Follow-up Appointments: Please follow up with Dr. Bronson in 2 weeks. You will recieve a letter in the mail and/or a phone call with information about this appointment. Please call the clinic at [phone] to confirm or reschedule. Who to call? If you have concerns or questions: - During the day, it is best to call the 4L General Surgery [facility] to speak with the Surgery nurses. The number is [phone]. - During the night or weekends call the [facility] rotary lithographic press operator at [phone] and ask to speak to the surgery resident tenoner operator for general surgery. Please note: Your surgeon may not be Power Station Operator, especially during the night or on weekends, so be ready to describe yourself and your surgery when you call. documented in this encounter Medications at Time of Discharge Medication Sig Dispensed Refills Start Date End Date UNABLE TO FIND 2 tablets daily. Med Name: Bariatric multivitamin acetaminophen 500 mg Capsule Take by mouth 2 times daily. pantoprazole EC (Protonix) 40 mg Tablet, Delayed Release (E.C.) Take 1 tablet by mouth 2 times daily. 90 tablet 3 04/12/2020 09/26/2020 sucralfate (Carafate) 100 mg/mL Suspension Take 10 mLs by mouth 4 times daily for 30 days. 1200 mL 04/11/2020 05/11/2020 iron,carbonyl-vitamin C (VITRON-C) 65 mg iron- 125 mg Tablet, Delayed Release (E.C.)Indications:Dis order of iron metabolism,Status post bariatric surgery,Intestinal malabsorption, unspecified type,Iron deficiency anemia secondary to inadequate dietary iron intake Take 1 tablet by mouth daily. 90 tablet 3 01/22/2019 09/26/2020 nystatin (MYCOSTATIN) PowderIndications:Int ertrigo Apply topically 4 times daily. To skin fold rash as needed 60 g 10/24/2018 02/14/2023 documented as of this encounter Progress Notes * Maria G Zazueta RN - 04/14/2020 11:09 AM EDT Patient discharge to home. IV removed, site benign. RN discussed pain management with patient, paintolerable. Patient has all belongings and supplies needed. Patient received After Visit Summary andany prescriptions, or was directed to pick them up at pharmacy if applicable. These were reviewed, patient verbalizes understanding of AVS. All questions answered. Patient encouraged to call with questions or concerns. Patient discharged to home with family via wheelchair to east entrance. documented in this encounter H&P Notes * Jerica Bronson MD - 04/14/2020 8:35 AM EDT Patient Name: Tiffanie Monreal Patient Age: 35 y.o. Birthdate: 1985 Admit date: 04/14/2020 Attending Physician: Jerica Bronson MD Tiffanie Monreal is a 35 yo female [...] 29.4) performed by Jerica Bronson MD at [facility] MA[facility] OR ??? PRO UPPER GI ENDOSCOPY, DIAGNOSTIC N/A 09/30/2018 ENDOSCOPY, UPPER GI, DIAGNOSTIC, WITH OR WITHOUT SPECIMENS performed by [facility] ??? TUBAL LIGATION Bilateral 2008 No current facility-administered medications on file prior [...] Other (See Comments) Ask patient. Family History Family History Problem Relation Age of Onset ??? Obesity Father at 58 ??? Heart Disease Father ??? Obesity Mother ??? Sleep Apnea Mother ??? Diabetes Mother ??? Obesity Sister s/p gastric bypass ??? Heart Disease Paternal Grandfather ??? Heart Disease Paternal Grandmother On examination, she appears well and in [...] encounter Miscellaneous Notes * Op Note - Viridiana Elise MD - 04/14/2020 10:27 AM EDT [facility] Operative Note Patient Name: Tiffanie oMnreal : [id number] MR#: [id number] Case Date: 04/14/2020 Surgeon: Surgeon(s) and Role: * Jerica Bronson MD - Primary * Viridiana Elise MD - Fellow * Leonel Campbell MD - Resident Preoperative diagnosis: ABDOMINAL PAIN Postoperative diagnosis: ABDOMINAL PAIN Procedure(s) (LRB): EGD, UPPER GI ENDOSCOPY (N/A) Findings: Normal esophagus. Gastric pouch with a small, healing erythematous erosion. Patent GJ anastomosis. No stricturing. Normal jejunual shelbie limb. Anesthesia: General Estimated Blood Loss: 0 cc Specimens removed during surgery: None Disposition: awakened from anesthesia, extubated and taken to the recovery room in a stable condition, having suffered no apparent untoward event. Condition: doing well without problems (Please see the Surgical Encounter Summary for any Implant and Specimen details pertinent to this patient.) HPI/Surgical Indications: Patient is a 35 year old female status post gastric bypass September 2018.She has recently experienced sudden epigastric pain and burning. No dysphagia. We offered her a esophagogastroduodenoscopy. Risks, benefits and alternatives were explained. Patient elected to proceed. Procedure Description: With IV monitored anesthesia care the patient was in a supine position with a bite-block inserted. A team timeout was performed and the endoscope was advanced through the oral cavity into the esophagus. The esophagus appeared normal with no evidence of esophagitis. The GE junction was normal. Gastric bypass anatomy present. Small erythematous erosion found in the gastric pouch with evidence of healing. Gastrojejunostomy anastomosis patent without stricturing. Normal jejunal shelbie limb. No other abnormalities. The scope was withdrawn after aspirating the stomach and no further abnormalities were noted. Patient returned to the recovery area in stable condition. Plan: Continue BID PPI and carafate RTC in [address] Gracy Elise MD PGY-6 Minimally Invasive Surgery Fellow Associated attestation - Jerica Bronson MD - 04/15/2020 1:56 PM EDT Attestation: Case Date: 04/14/2020 I performed this procedure without the involvement of a resident. JERICA BRONSON MD 04/15/2020 documented in this encounter Plan of Treatment Upcoming Encounters Date Type Department Care Team (Late st Contact Info) Description 06/02/2024 8:00 AM EDT Office [place] [phone] Julienne Lacey APRN [facility] [place] [address] 07/24/2024 1:30 PM EST Office Visit [place] [address] Jenni Brennan MD [facility] [address] documented as of this encounter Procedures Procedure Name Priority Date/Time Associated Diagnosis Comments Upper GI Endoscopy, Diagnostic (33512) Yes 04/14/2020 10:13 AM EDT OBESITY documented in this encounter Visit Diagnoses Not on filedocumented in this encounter Administered Medications Inactive Administered Medications - up to 3 most recent administrations Medication Order MAR Action Action Date Dose Rate Site lactated ringers infusion 1,000 mL, at 100 mL/hr, Intravenous, CONTINUOUS, Starting on Sarah 04/14/20 at 0830, Until Sarah 04/14/20 at 1109, Day of Surgery (Day of Procedure) New Bag 04/14/2020 10:13 AM EDT New Bag 04/14/2020 8:04 AM EDT 1,000 mLs 100 mL/hr documented in this encounter Active and Recently Administered Medications Times are shown in EDT. Continuous Medication Order 04/12/2020 04/13/2020 04/14/2020 lactated ringers infusion (CANCELED) 1,000 mL, at 100 mL/hr, Intravenous, CONTINUOUS, Starting on Sarah 04/14/20 at 0830, Until Sarah 04/14/20 at 1109, Day of Surgery (Day of Procedure) 0804 (New Bag - Prov ider: Cheli Schwartz RN)1013 (New Bag - Provider: Daniel Luther MD - Comment: includes 700 of LR given in pre op)1026 (Anesthesia Volume Adjustment - Provider: Daniel Luther MD) documented in this encounter Care Teams Customer Contact Representative Relationship Specialty Start Date End Date Kezia Aguirre MD [address] [place] [address] PCP - General Family Medicine 12/24/16 12/30/22 documented as of this encounter
--- OUTSIDE RECORDS SUMMARY | 2024-05-25 14:51 | XMS_ITS | Encounter Summary ---
Author Organization [facility] Address [facility] [place] [address] Care Team Providers Care Portable Trackman Name Role Phone Kezia Aguirre MD Primary Care Provider [phone] Encounter Details Date Type Department Care Team (Late st Contact Info) Description 10/24/2018 Notes Only [place] [phone] [facility] [place] [address] Social History Tobacco Use Types Packs/Day Years [...] as of this encounter Progress Notes * Ginger Mojica RD - 10/24/2018 1:20 PM EDT Bariatric Nutrition 3-4 week post-op visit Date of Surgery: 09/30/18 Type of Surgery: RNY gastric bypass Comments/Concerns: has been on a plateau for the past week; more stress since returning to work; one episode of vomiting after trying a piece of meat at work; tracking intake with phone ankita and a notebook; feels much better when hitting protein and fluid targets Weight History: Date Weight (lbs) Height (inches) BMI Max wt 311# 12/04/17 296.2# Initial program weight 08/25/18 295# 65 49 1st pre-op visit 09/30/18 %EWL Surgery 10/24/18 275# 14% 45.8 1st post-op check 4 month follow-up Vitamin/Mineral Supplements (reported by patient): Supplement Type Brand/Form Dosage/Amount Frequency Comments Multivitamin Bariatric Fusion 1 wafer 4 x daily Calcium In Fusion Vitamin B12 In Fusion Iron In Fusion Vitamin D3 prescription 79999 IU weekly Tracking Intake: Yes Reported Oral Intake: Breakfast 2 HB eggs no yolk Lunch Cc, veggies Dinner Scallops or chicken, veggies snacks Protein bar Fluids 2-3 protein shakes, 80 oz water ETOH none Social Hx: with 2 children ages 14 and 10; 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 Evaluation by the RESEARCH DIRECTOR today ?? Provided support/encouragement and reinforced importance of meeting nutritional goals. ?? Reviewed nutrition and vitamin and mineral supplement recommendations. ?? Written recommendations provided on the AVS. ?? Follow up at 4 months post surgery with labwork. documented in this encounter Plan of Treatment Upcoming Encounters Date Type Department Care Team (Late st Contact Info) Description 06/02/2024 8:00 AM EDT Office Visit [place] [phone] Julienne Lacey APRN [facility] [place] [address] 07/24/2024 1:30 PM EST Office Visit Weight [place] [phone] Jenni Brennan MD [facility] DR [facility] [address] documented as of this encounter Visit Diagnoses Not on filedocumented in this encounter Care Teams Portable Trackman Relationship Specialty Start Date End Date Kezia Aguirre MD [address] [place] [address] PCP - General Family Medicine 12/24/16 12/30/22 documented as of this encounter
--- OUTSIDE RECORDS SUMMARY | 2024-05-25 14:51 | XMS_ITS | Encounter Summary ---
Author Organization [facility] Address [facility] [place] [address] Care Team Providers Care Surgical Services Assistant Name Role Phone Kezia Aguirre MD Primary Care Provider [phone] Encounter Details Date Type Department Care Team (Late st Contact Info) Description 04/14/2020 9:28 AM EDT - 04/14/2020 10:32 AM EDT Surgery [place] [phone] Jerica Bronson MD [facility] [place] [address] EGD, UPPER GI ENDOSCOPY (WRVU 2.09) Social History Tobacco Use Types Packs/Day Years [...] Sign Reading Time Taken Comments Blood Pressure 108/64 04/14/2020 7:57 AM EDT Pulse 57 04/14/2020 7:57 AM EDT Temperature 36.1 ??C (97 ??F) 04/14/2020 7:57 AM EDT Respiratory Rate 16 04/14/2020 7:57 AM EDT Oxygen Saturation 100% 04/14/2020 7:57 AM EDT Inhaled Oxygen Concentration - - [...] this appointment. Please call the clinic at [phone] to confirm or reschedule. Who to call? If you have concerns or questions: - During the day, it is best to call the 4 General Surgery Clinic to speak with the Surgery nurses. The number is [phone]. - During the night or weekends call the [facility] turbo electric operator at [phone] and ask to speak to the surgery resident wildland fire operations specialist for general surgery. Please note: Your surgeon may not be Jackhammer Splitter Operator, especially during the night or on [...] 29.4) performed by Jerica Bronson MD at [facility] MAIN OR ??? PRO UPPER GI ENDOSCOPY, DIAGNOSTIC N/A 09/30/2018 ENDOSCOPY, UPPER GI, DIAGNOSTIC, WITH OR WITHOUT SPECIMENS performed [facility] ??? TUBAL LIGATION Bilateral 2008 No [...] Elise MD - 04/14/2020 10:27 AM EDT [facility] Operative Note Patient Name: Tiffanie Monreal : [id number] MR#: [id number] Case Date: 04/14/2020 Surgeon: Surgeon(s) and Role: [...] 8:00 AM EDT Office [place] [phone] Julienne Lacey APRN [facility] [place] [address] 07/24/2024 1:30 PM EST Office Visit [place] [phone] Jenni Brennan MD [facility] [place], [place] [phone] documented as of this encounter Procedures Procedure Name Priority Date/Time Associated Diagnosis Comments Upper GI Endoscopy, Diagnostic (59483) Yes 04/14/2020 10:13 AM EDT OBESITY documented [...] MD) documented in this encounter Care Teams Surgical Services Assistant Relationship Specialty Start Date End Date Kezia Aguirre MD [address] [place] [address] PCP - General Family Medicine 12/24/16 12/30/22 documented as of this encounter
--- OUTSIDE RECORDS SUMMARY | 2024-05-25 14:51 | XMS_ITS | Encounter Summary ---
Author Organization [facility] [place] [address] Care Team Providers Care Computer Support Technician Name Role Phone Kezia Aguirre MD Primary Care Provider [phone] Encounter Details Date Type Department Care Team (Late st Contact Info) Description 10/07/2018 Telephone [place] [phone] Lilibeth Lowe RN Social History Tobacco Use Types Packs/Day [...] encounter Miscellaneous Notes * Telephone Encounter - Lilibeth Fay RN - 10/07/2018 12:08 PM EST S/P sleeve gastrectomy, RNY gastric bypass on: Discharged on PO Day #: Issues during hospitalization: none Today's phone discussion took place with patient, Tiffanie Monreal. SFatoumata Monreal was called via phone for post discharge follow up. Diet: stage: Stage 2 Fluids: Patient reports drinking an average of 50 oz of fluids/day. Protein: Patient reports getting 50-60 grams of protein/day. Other: Nausea/ vomiting: None Urination: adequate, no difficulties Bowels: Moving bowels normally. Activity level: Patient is overall doing well, no complaints of fatigue. Pain level, analgesia requirements: None required. Any significant changes to comorbidites/ medications (ex DM, HTN): None Medications: Currently crushing or taking liquid form of medications, as appropriate: Taking ulcer prevention medication: Patient is taking Omeprazole as prescribed. Taking Ursodiol (if appropriate): Not needed. VTE prophylaxis: enoxaparin: Not needed. Follow up: PCP appointment: at one month, as scheduled with surgeon and RD Patient questions: No questions at this time. Recommendations: Patient is doing very well. Told her to call us with any questions or concerns. documented in this encounter Plan of Treatment Upcoming Encounters Date Type Department Care Team (Late st Contact Info) Description 06/02/2024 8:00 AM EDT Office [place] [address] Julienne Lacey APRN [facility] [place] [address] 07/24/2024 1:30 PM EST Office Visit [place] [address] Jenni Brennan MD [facility] DR [facility] [address] documented as of this encounter Visit Diagnoses Not on filedocumented in this encounter Care Teams Computer Support Technician Relationship Specialty Start Date End Date Kezia Aguirre MD [address] [place] [address] PCP - General Family Medicine 12/24/16 12/30/22 documented as of this encounter
--- OUTSIDE RECORDS SUMMARY | 2024-05-25 14:51 | XMS_ITS | Encounter Summary ---
Author Organization [facility] [place] [address] Care Team Providers Care Manager Agency Name Role Phone Kezia Aguirre MD Primary Care Provider [phone] Encounter Details Date Type Department Care Team (Late st Contact Info) Description 11/04/2019 Telephone [place] [phone] Casandra Alvarenga Social History Tobacco Use Types [...] * Telephone Encounter - Casandra Alvarenga - 11/04/2019 9:51 AM EDT Left message for Tiffanie re: her BSP appt for 11/19 which needs to be a phone visit or postponed and to call us back to advise which option she would like documented in this encounter Plan of Treatment Upcoming Encounters Date Type Department Care Team (Late st Contact Info) Description 06/02/2024 8:00 AM EDT Office [place] [phone] Julienne Lacey APRN [facility] [place] [address] 07/24/2024 1:30 PM EST Office Visit [place] [phone] Jenni Brennan MD [facility] DR [facility] [place] [address] documented as of this encounter Visit Diagnoses Not on filedocumented in this encounter Care Teams Manager Agency Relationship Specialty Start Date End Date Kezia Aguirre MD [address] [place] [address] PCP - General Family Medicine 12/24/16 12/30/22 documented as of this encounter
--- OUTSIDE RECORDS SUMMARY | 2024-05-25 14:51 | XMS_ITS | Encounter Summary ---
Author Organization [facility] Address [facility] [place] [address] Care Team Providers Care Sales Correspondent Name Role Phone Kezia Aguirre MD Primary Care Provider [phone] Encounter Details Date Type Department Care Team (Late st Contact Info) Description 09/08/2018 Notes [place] [phone] [facility] [place] [address] Social History Tobacco Use Types Packs/Day Years [...] Progress Notes * Ginger Mojica RD - 09/08/2018 12:58 PM EST Tiffanie attended a comprehensive two hour pre-operative class today, which included discussion of preand post operative instructions included in the [facility] Bariatric Surgery Program Education Handbook. One hour of today's group visit was spent in review of dietary and post op vitamin and mineral supplementation. Some of the topics reviewed today included: ??? pre-operative and post-operative dietary recommendations ??? post-op vitamin and mineral supplementation Tiffanie appeared to have a good understanding of the information presented, and asked appropriate questions. All her questions were answered. documented in this encounter Plan of Treatment Upcoming Encounters Date Type Department Care Team (Late st Contact Info) Description 06/02/2024 8:00 AM EDT Office [place] [address] Julienne Lacey APRN [facility] [place] [address] 07/24/2024 1:30 PM EST Office Visit [place] [phone] Jenni Brennan MD [facility] DR [facility] [address] documented as of this encounter Visit Diagnoses Not on filedocumented in this encounter Care Teams Sales Correspondent Relationship Specialty Start Date End Date Kezia Aguirre MD [address] [place] [address] PCP - General Family Medicine 12/24/16 12/30/22 documented as of this encounter
--- OUTSIDE RECORDS SUMMARY | 2024-05-25 14:51 | XMS_ITS | Encounter Summary ---
Author Organization [facility] [place] [address] Care Team Providers Care Magnetizer Name Role Phone Kezia Aguirre MD Primary Care Provider [phone] Encounter Details Date Type Department Care Team (Late st Contact Info) Description 04/12/2020 Orders Only [place] [address] Jerica Dubose MD [facility] [place] [address] Social History Tobacco Use Types Packs/Day Years [...] 8:00 AM EDT Office Visit [place] [address] Julienne Lacey APRN [facility] [place] [address] 07/24/2024 1:30 PM EST Office Visit Weight [place] [address] Jenni Brennan MD [facility] [place] [address] documented as of this encounter Visit Diagnoses Not on filedocumented in this encounter Care Teams Magnetizer Relationship Specialty Start Date End Date Kezia Aguirre MD [address] [place] [address] PCP - General Family Medicine 12/24/16 12/30/22 documented as of this encounter
--- OUTSIDE RECORDS SUMMARY | 2024-05-25 14:51 | XMS_ITS | Encounter Summary ---
Author Organization [facility] Address [facility] [place] [address] Care Team Providers Care Sanitation Manager Name Role Phone Kezia Aguirre MD Primary Care Provider [phone] Reason for Visit * Reason Comments Follow-up s/p cam surg 9 Encounter Details Date Type Department Care Team (Late st Contact Info) Description 09/26/2020 1:00 PM EST Office Visit [place] [phone] Luz Vinson APRN [facility] [place] [address] Liane Glass, RD [facility] [place] [address] Low vitamin D level (Primary Dx); Post-resection malabsorption; Low vitamin B12 level; Status post bariatric surgery Social History Tobacco [...] Sign Reading Time Taken Comments Blood Pressure 123/74 09/26/2020 12:51 PM EST Pulse 72 09/26/2020 12:51 PM EST Temperature - - Respiratory Rate 16 09/26/2020 12:51 PM EST Oxygen Saturation 99% 09/26/2020 12:51 PM EST Inhaled Oxygen Concentration - - Weight 97.8 kg (215 lb 9.6 oz) 09/26/2020 12:51 PM EST Height 165.1 cm (5' 5) 09/26/2020 12:51 PM EST Body Mass Index 35.88 09/26/2020 12:51 PM EST documented in this encounter Patient Instructions * Patient Instructions* Liane Glass, RD - 09/26/2020 1:00 PM EST [facility] client support administrator Florecita [phone] and Casandra [phone] Dietitians: [phone] Surgeons/ nurse practitioners: [phone] Nurse line: [phone] Dear Tiffanie, Below please find a summary of our discussion/recommendations from your visit as well as some otherbariatric surgery related information. Recommendations/Referrals: ?? I recommend that you take and additional 1000 IU of vitamin D3 per day (you can purchase this without a prescription). Testing: If you are due to have lab work today please have it done when you are able. We will plan to follow up with you once your results are available and make additional recommendations re: your vitamins and supplements. Please call/send my Ayannah message if you have not heard from us within 2 weeksof having labs work done. In the future, it would be helpful if you can have your lab work drawn a couple days before your visit so the results are available at the time of your follow up visit Next visit: Follow up visits are done at 4 months and 12 months after surgery and yearly thereafter. High risk patients are evaluated on a more frequent basis. Please call [phone] if you do not receive an appointment by 3-4 weeks prior to the expected visit. Vitamins: The following vitamins are recommended: ??? Multivitamins with minerals twice daily- Continue Bariatric Fusion 2 tablets twice daily. ??? Vitamin B12 2000 mcg daily (confirm your current supplement and continue if it's 2000 mcg/day) ??? Vitamin D if recommended based on lab results Nutrition recommendations: - Keep an eye on calories in protein bars- snacks should be around 100 calories. Consider the preopdiet to aid in jump starting weight loss. - Your Daily Goals: ?? 1,000-1,200 calories [...] cardio and strength training exercises. Skinfold care: 1. Cleanse area with soap and water. 2. Blow dry area on low setting with chairman emeritus. 3. Apply absorbent powder such as Gold [place] and Desinex 4. Apply cotton strips (such as strips from old sheets) or larger size cotton underwear folded beneath skin folds to act as a wick. Do not apply talha cloth toweling which can cause further irritation 5. Try combination of over the counter hydrocortisone cream with over the counter antifungal cream such as lotrimin twice a day for 2 weeks. 6. If your symptoms do not improve you may require prescription of anti-fungal cream/powder. 7. Follow up with PCP if symptoms worsen/fail [...] with doses higher than 2 capfuls twice daily On days with loosestools, we recommend reducing miralax to 1/2 capful [...] difficulty keeping food or fluid down. Alcohol: should be used sparingly, no more [...] study through your primary care providers office. Potential lifetime risks of gastric bypass include risk of ulcer, which is increased with alcohol and antiinflammatory medications and internal hernia (less than 5%), which may be increased with higher than predicted weight loss Sleep Apnea: If you have a history of sleep apnea and have a CPAP/BiPAP, please be sure to follow up with the sleep center to confirm your pressures and determine if continued use of CPAP/BiPAP is recommended. Call us: ??? If you have concerns. ??? If you have unexplained abdominal pain. ??? if you see blood in your stool or vomit blood ??? If you have prolonged vomiting Post Surgery Support Group: Our post surgery support group meets at [facility] on the saturday of every month from 1:00 PM-2:00 PM. Nutrition and Activity apps- Baritastic, My Fitness Pal, Lose It, My Plate Internet resources: www.Tile www.Jubilater Interactive Media www.bariatriceating.com www.Perfect Market.eVigilo/blog [facility] facebook page: https://www.facebook.com/[facility]ric[facility]gery Books & Magazines: - Recipes for Life After Weight Loss Surgery by Ally Schmitt - Shrink Yourself by Dr Alban Mendez - Eating Well - www.Solar Components.eVigilo - Cooking Light- www.cookingMed.ly.eVigilo Anxiety: The Happiness Trap by Carlos A Tee The Mindfulness and acceptance workbook for anxiety By Rodriguez Zelaya. Mindful eating: What are you Hungry For? By Eugene Braden The Mindful Diet by Simran Hdez and the [facility] group. Emotional eating: End Emotional Eating by Liane Khalil Calming the Emotional Storm Lissethalvarez Ayala documented in this encounter Progress Notes * Liane Glass, RD - 09/26/2020 1:00 PM EST Bariatric Surgery Program Nutrition Progress Note Encounter Type: follow up SUBJECTIVE: Topics Discussed/Patient Concerns: ?? Issues with skin issues. Exercising can be difficult at times. ?? Can't seem to get below 200#. Was there for about 3 months then COVID hit. Notes was unemployed for 2 months. She was also eating out of boredom. Now coloring or shuffling cards to keep her hands busy so she doesn't eat out of boredom. ?? Not as active at her current job Social Hx:? 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 Date Weight (lbs) Height (inches) BMI ? Max wt 311# 12/04/17 296.2# ? Initial program weight 08/25/18 295# 65 49 1st pre-op visit 09/30/18 ?? %EWL ?? Surgery 10/24/18 275# 14% 45.8 1st post-op check 07/24/19 215.8# 55% 35.9 10 month follow-up ??11/19/18 ??200# ?~1 year post-op (reported) 09/26/20 215.6# 55% 35.9 2 years post-op ? MEDICATIONS: Vitamin/Mineral Supplements??(reported by patient): * Of note, pt's vitamin B12 and vitamin D levels were decreasing. Supplement Type Brand/Form Dosage/Amount Frequency Comments Multivitamin Bariatric Fusion 2 wafer Twice daily ?? Calcium ? In Fusion Vitamin??B12 ?? 2000 mcg?? daily ?? Iron ? In Fusion Biotin ?? 1 pill daily ?? Vitamin D2 none Finished prescription? Food Allergies/Intolerances:??pork- not as bad as it was. (middleton or pork chops). Dairy- milk, ice cream- stomach cramps, diarrhea. Can do cheese, cottage cheese, small amount regular yogurt, Wolof yogurt Tracking Intake: Continues to track. Paper and Pencil log. Jots it down at the end of the day. Reviews log at the end of the week. ?? 24-Hour Intake: occ Kaelyn bar- for a morning snack. Sometimes cottage cheese or a little yogurt. Sometimes eats due to boredom. Breakfast 2 egg whites and 1/2 EM and banana or PB OR high protein oatmeal OR yogurt and fruit AM Snack Lunch Salad w chicken PM Snack Dinner Meat and vegetable. occ rice 1-2 x week HS Snack Protein/ grams per day: ~60 g Hydrating fluids- oz/ day: 48+ oz water daily- 32 oz bottle she fills 3-4 x day Soda: none ETOH: None. Caffeine: none Sweets: Not really. Occ. Part of a hard pretzel Meals per day: ?? Feels hungry []never [x]sometimes []most of the time [] always ?? Drinks with meals: none. ?? In the past month, pt has vomited/regurgitated: none. ?? Constipation/Diarrhea: none. If eats too much yogurt or cheese will have constipation Exercise: goes to the gym 3+ x week for about 1 hour. TM for 1.5-2 miles and then does other exercises: elliptical and weights. Toning at home w resistance bands and about 1/2 mile loop. ASSESSMENT: Summary of Weight Loss: Patient's percent excess weight loss is 55%. Tiffanie is tolerating the diet and is meeting protein and fluid goals. ~15# weight gain since her last visit which pt attributes to some boredom eating and decreased activity. Boredom eating now resolved. Activity a little less as she is not as active at her new job. Discussed working in more walking on days away from the gym. Reviewed vitamin and mineral supplements. NUTRITION INTERVENTION & MONITORING: ?? Provided support/encouragement and reinforced importance of meeting nutritional goals. ?? Keep an eye on calories in protein bars- snacks should be around 100 calories. Consider the preop diet to aid in jump starting weight loss. ?? Reviewed nutrition and vitamin and mineral supplement recommendations. ??? Multivitamins with minerals twice daily- Continue Bariatric Fusion 2 tablets twice daily. ??? Vitamin B12 2000 mcg daily or as recommended based on lab results ??? Vitamin D if recommended based on lab results ?? Written recommendations provided. Patient agreed with these and verbalized adequate understanding. ?? Evaluation by nurse practitioner today. ?? Handouts provided: One Year and Beyond Booklet * Luz Vinson APRN - 09/26/2020 1:00 PM EST [place] [address] Reason for visit: Bariatric Surgery follow up visit Subjective: Tiffanie Monreal is s/p laparoscopic Thomas-en-Y gastric bypass 09/30/[address] Downing, she presents today for annual BSP follow up. Overall tolerating foods/fluids and trying to make sure she is meetingnutritional/fluid requirements. Reporting continued skin fold issues including rashes/discomfort. Has tried OTCs and rx creams and powders, blow drying, cotton strips, deodorant. No other bariatric related concerns/complaints today. Taking Bariatric fusion 2 tablets, twice daily (which includes Vit B12 560 mcg, Vit D3 3,000 IU, Calcium 1200 mg, Iron 45mg daily). Taking additional Vit B12 2000 mcg daily (has deficiency in the past). Needed additional Vitamin D3 in the past, none currently. 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 Interim Health: She reports her health has been stable overall. Seeing PCP for depression monthly, no current prescriptions. Denies thoughts/plans/actions of violence toward herself or others. No surgeries, hospitalizations, or bariatric related ED visits since the last visit. No kidney stones or atraumatic fractures. Pt follows with PCP/specialist for disease management and age specific screening. Obesity related medical issues prior to surgery- o Diabetes [] Yes [x] Not a baseline issue o HTN: [] Yes [x] Not a baseline issue o GERD: [] Yes [x] Not a baseline issue o Hyperlipidemia: [] Yes [x] Not a baseline issue o ESTHELA: [] Yes [x] Not a baseline issue o Musculoskeletal issues: [x] Yes back pain improved with weightloss [] Not a baseline issue Patient Active Problem List Diagnosis Code ??? Breast hypertrophy N62 ??? 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 Insomnia G47.00 ??? Major depressive disorder F32.9 ??? Anxiety disorder F41.9 ??? Bariatric surgery status: 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 Z98.84 Review of Systems Constitutional: energy level is good (worse recently with depression and new job), no c/o restless leg, no pica, reports hair thinning/loss stable since 3 months post op. Neuro: no c/o paresthesias. No changes in memory. CV: no chest pain or palpitations. Pulm: denies SOB or cough. GI: denies bloating, abdominal pain, nausea, vomiting. No diarrhea. Reports intermittent constipation with cheese. 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 Skin: Reports redundant skin over abdomen, thighs, arms, groin with skin fold rashes (itching, redness). Health Habits: Tobacco/Nicotine use: None. ETOH use: None. PRN needing about 1- 2x /week NSAID use. Dietary history/ exericse/ activity level: See dietitian note from today's visit for complete dietary evaluation. Meds and Allergies reviewed. Complications summary: Early none Late none Pre-op 08/25/18 Wt (lbs) 295 BMI 49 HT: 65 Post-op %EBW lost 10/24/18 275 45.8 14 01/21/19 238 39.7 40 07/24/19 215 35.9 55 11/20/19 Reports at 200 - - 09/26/20 Weight: 97.8 kg (215 lb 9.6 oz) 35.9 55 Objective: BP 123/74 (BP Location (NBP): Left arm, Patient Position: Sitting, BP Cuff Sizes: Adult (25-34 cm)) Pulse 72 Resp 16 Ht 165.1 cm (5' 5) Wt 97.8 kg (215 lb 9.6 oz) SpO2 99% BMI 35.88 kg/m?? Physical Exam Gen: Alert, pleasant, NAD, appears well Abd: soft, non-distended, non-tender. Lower extremities: No edema or tenderness. Skin: Moderate/significant excess skin noted on abdomen. Skin is warm and dry. Erythema without skin breakdown noted on exam today. No scabbing/pustules, heat/tenderness. Psychiatric: normal mood and affect. Recent Results (from the past 72 hour(s)) Comprehensive metabolic panel (non-fasting) Result Value Ref Range Glucose Lvl 68 65 - 199 mg/dL BUN 11 8 - 18 mg/dL Creatinine 0.65 (L) 0.70 - 1.20 mg/dL Sodium 141 135 - 145 mmol/L Potassium 4.1 3.5 - 5.0 mmol/L Chloride 107 98 - 107 mmol/L CO2 27 22 - 31 mmol/L Anion Gap 7 5 - 15 mmol/L Calcium 9.5 8.5 - 10.5 mg/dL Total Protein 6.9 6.1 - 8.0 gm/dL Albumin 4.4 3.2 - 5.2 gm/dL AST 11 0 - 30 unit/L ALT 10 0 - 30 unit/L Alk Phos 71 35 - 105 unit/L Total Bilirubin 0.2 0.2 - 1.3 mg/dL Estimated GFR 115 >=60 mL/min/1.73 m?? Ferritin Result Value Ref Range Ferritin 24 15 - 150 ng/mL Folate, serum Result Value Ref Range Folate Lvl 10.1 4.8 - 24.2 ng/mL Hemogram Result Value Ref Range WBC 7.4 4.0 - 9.5 x10(3)/mcL RBC 4.58 4.00 - 5.21 x10(6)/mcL Hemoglobin 12.9 11.7 - 15.5 gm/dL Hematocrit 39.5 35.7 - 45.8 % MCV 86.2 82.6 - 94.4 fL MCH 28.2 27.1 - 32.0 pg MCHC 32.7 31.7 - 35.0 gm/dL Platelets 225 145 - 357 x10(3)/mcL RDWSD 40.5 37.0 - 46.0 fL RDWCV 12.9 11.5 - 14.1 % MPV 10.7 7.6 - 12.9 fL nRBC % Auto 0.0 % nRBC Abs Auto 0.000 0.000 - 0.000 x10(3)/mcL Iron and TIBC Result Value Ref Range Iron 98 30 - 150 mcg/dL TIBC 349 250 - 450 mcg/dL Iron Saturation 28 20 - 50 % PTH Result Value Ref Range PTH 45 15 - 65 pg/mL Vitamin B12 Result Value Ref Range Vitamin B-12 327 232 - 1,245 pg/mL Vitamin D, 25-Hydroxy Result Value Ref Range 25-OH Vit D Total 26 21 - 100 ng/mL 25-OH Vit D Interp Insufficient Hemoglobin A1c Result Value Ref Range Hemoglobin A1C 4.9 4.3 - 5.6 % Est Avg Gluc 93 mg/dL Lipid Panel (Reflex Direct LDL) Result Value Ref Range Chol, Total 139 mg/dL Triglycerides 59 mg/dL HDL 60 mg/dL LDL Cholesterol 67 mg/dL Chol/HDL Ratio 2.3 ratio Lipid Interpretation See Note Assessment and Plan: ??? 35 year old female 2 years s/p laparoscopic Thomas-en-Y gastric bypass 55 % of excess body weightlost, o doing well from a bariatric surgery perspective, overall very pleased with wt loss, only bariatric concern being skin fold rashes and excess skin. o discussed dietary considerations and strategies for continued success (patient will try a new tracking method and will consider pre-op diet due to weight gain) to move forward with weight loss. o Reviewed importance of meeting nutritional/protein/fluid requirements, tracking food and food choices, pairing proteins with carbs, being careful to avoid eating too fast, eating too much, drinkingwith meals, or not chewing well enough. o Patient has met with ground crew supervisor today, please see note for additional details/dietary evaluation. ??? Obesity related co-morbidities are improved/stable overall. o Discussed skin fold issues and reviewed strategies to manage symptoms. o Patient to return to clinic in 6 months to discuss referral to plastic surgery (discussed criteria for referral). ??? Risk for vitamin deficiencies: o Reviewed lab results today. Labs showing low but improved B 12 (patient to continue Fusion and continue 2000 mcg additional B 12 per day). Discussed with patient that B12 is sometimes given as an injection. Given her levels are improving she is not interested in injection today but will follow upwith PCP if interested in the future. o Labs show low but improved Vitamin D. We will add OTC vitamin D3 1000 IU/day and recheck in 6 months. o Reviewed recommended vitamin/mineral supplements- see RD note for details. - Additional recommendations: o Will be in touch if pending labs (B1) show abnormality. ??? Pt reminded that a bone mineral density scan (DEXA) is recommended every 2 years after bariatric surgery. Recommended f/u with primary care provider to check if up to date. RTC in 6 months for next BSP follow up visit, with labs. Call/rtc sooner prn with questions/concerns or unexplained abdominal pain, prolonged nausea, vomiting or inability to hydrate. Bariatric Program Summary report is availabe for patient's review via e- Luz Vinson APRN Greater than 30 minutes spent with patient in [id number] discussion including review of diagnosis, labs, counseling and treatment plan. RECOMMENDED BARIATRIC SURGERY PROGRAM POSTOPERATIVE FOLLOW-UP: Follow [...] labwork is done by the primary care management coordinator: please send a copy to the Bariatric Surgery Program, General Surgery Clinic, [facility], or fax [phone] documented in this encounter Plan of Treatment Upcoming Encounters Date Type Department Care Team (Late st Contact Info) Description 06/02/2024 8:00 AM EDT Office Visit [place] [phone] Julienne Lacey APRN [facility] [place] [address] 07/24/2024 1:30 PM EST Office Visit Weight [place] [phone] Jenni Brennan MD [facility] DR [facility] [address] documented as of this encounter Visit Diagnoses Diagnosis Low vitamin D level- Primary Post-resection malabsorption Other and unspecified postsurgical nonabsorption Low vitamin B12 level Other B-complex deficiencies Status post bariatric surgery Bariatric surgery status documented in this encounter Care Teams Sanitation Manager Relationship Specialty Start Date End Date Kezia Aguirre MD [address] [place] [id number] PCP - General Family Medicine 12/24/16 12/30/22 documented as of this encounter
--- OUTSIDE RECORDS SUMMARY | 2024-05-25 14:51 | XMS_ITS | Encounter Summary ---
Author Organization [facility] [place] [address] Care Team Providers Care Epidemiology Internship Name Role Phone Kezia Aguirre MD Primary Care Provider [phone] Encounter Details Date Type Department Care Team (Late st Contact Info) Description 04/08/2020 External Results General Surgery at [place] [phone] Social History Tobacco Use Types Packs/Day Years [...] 8:00 AM EDT Office Visit Gastroenterology at [place] [phone] Julienne Lacey APRN [facility] [place] [address] 07/24/2024 1:30 PM EST Office Visit Weight and Wellness at [place] [phone] Jenni Brennan MD [facility] [address] [facility] [place] [address] documented as of this encounter Procedures Procedure Name Priority Date/Time Associated Diagnosis Comments XR CHEST ONE VIEW Routine 04/06/2020 LAB SCAN Routine 04/06/2020 documented in this encounter Results * Scan Doc: Lab (04/06/2020) Historical Provider MEDIA MGR SCAN EX T ORDR/RSLT * XR Chest One View (04/06/2020) Anatomical Region Laterality Modality Chest N/A Radiographic Ciara ging Historical Provider IMG DX ORDERABLES documented in this encounter Visit Diagnoses Not on filedocumented in this encounter Care Teams Epidemiology Internship Relationship Specialty Start Date End Date Kezia Aguirre MD [address] [place] [address] PCP - General Family Medicine 12/24/16 12/30/22 documented as of this encounter
--- OUTSIDE RECORDS SUMMARY | 2024-05-25 14:51 | XMS_ITS | Encounter Summary ---
Author Organization [facility] Address [place] [address] Care Team Providers Care Community Health Representative Name Role Phone Kezia Aguirre MD Primary Care Provider [phone] Reason for Visit * Auth/Cert Specialty Diagnoses / Procedures Referred By Contac t Referred To Contact Diagnoses Morbid obesity Other sleep disorders MORBID OBESITY Procedures PRO LAP GASTRIC BYPASS/SHELBIE-EN-Y PRO UPPER GI ENDOSCOPY, DIAGNOSTIC @LAPAROSCOPIC GASTROPLASTY, (WRVU 29.4) ENDOSCOPY, UPPER GI, DIAGNOSTIC, WITH OR WITHOUT SPECIMENS Referral ID Status Reason Start Date Expiration Date Visits Re quested Visits Authorized [id number] 1 1 Encounter Details Date Type Department Care Team (Latest Contact Info) Description 09/30/2018 1:30 PM EST - 10/01/2018 5:50 PM [facility] Hospital Encounter [address] [place] [address] Jerica Bronson MD [facility] [place] [address] Discharge Disposition: Home Social History Tobacco Use [...] Sign Reading Time Taken Comments Blood Pressure 125/70 10/01/2018 12:31 PM EST Pulse 77 10/01/2018 3:17 AM EST Temperature 37 ??C (98.6 ??F) 10/01/2018 12: 31 PM EST Respiratory Rate 22 10/01/2018 12:3 1 PM EST Oxygen Saturation 99% 10/01/2018 12: 31 PM EST Inhaled Oxygen Concentration - - Weight 133.9 kg (295 lb 3.1 oz) 019 11:34 PM EST Height 167.6 cm (5' 6) [...] was changed to oral pain medications and CALENDER OPERATOR HELPER was di scontinued on POD#1. POD#1 she [...] 13.5 HCT 41.2 PLATELET 257 Recent Labs 10/01/18 0453 NA 137 K 4.3 CL 104 CO2 [...] mouth once a week for 24 doses. [id number] Units Quantity: 12 capsule Refills: 1 multivitamin [...] RD; Flavia Landon APRN [facility] [place] Arrive at: Product Consultant Area [phone] 01/21/2019 12:[address]; Flavia Landon APRN [facility] [place] Arrive at: Product Consultant Area [phone] Instructions Given to Patient at Discharge: Patient Instructions BARIATRIC SURGERY DISCHARGE INFORMATION BARIATRIC SUPPORT TEAM CONTACT NUMBERS (Mon-Fri 8am - 5pm): General Surgery and Bariatric Surgery [phone] Bariatric Surgeons: Akil Block and Gracy [phone] Senior Data Integration Developer: [phone] Dietitians: [phone] Outside of regular business hours, including weekends and holidays: Ask for General Surgery resident correspondence representative [phone] FOR EMERGENCIES: CALL 911 (trouble breathing, chest [...] weeks at the General Surgery Outpatient Clinic ([address]). Future Appointments Date Time Provider Department [...] Follow up with primary care provider or account installation specialist in 1-2 weeks in order to [...] RD; Flavia Landon APRN [facility] [place] Arrive at: Product Consultant Area [phone] 01/21/2019 12:[address]; Flavia Landon APRN General Surgery [facility] Arrive at: Product Consultant Area [phone] Signed: Nemesio Mccarthy MD 10/01/2018 Primary [place] Physician: Kezia Aguirre MD [address] [place] [address] documented in this encounter Discharge Instructions * Patient Instructions* Nemesio Mccarthy MD - 10/01/2018 11:57 AM EST BARIATRIC SURGERY DISCHARGE INFORMATION BARIATRIC SUPPORT TEAM CONTACT NUMBERS (Mon-Fri 8am - 5pm): General Surgery and Bariatric Surgery [phone] Bariatric Surgeons: Akil Block and Gracy [phone] Senior Data Integration Developer: [phone] Dietitians: [phone] Outside of regular business hours, including weekends and holidays: Ask for General Surgery resident correspondence representative [phone] FOR EMERGENCIES: CALL 911 (trouble breathing, chest [...] weeks at the General Surgery Outpatient Clinic (Product Consultant 4L, [facility]). Future Appointments Date Time Provider Department Center [...] Follow up with primary care provider or account installation specialist in 1-2 weeks in order to [...] sided gas pain. LR running at 125. CALENDER OPERATOR HELPER at 2,10, 4.Pt up to bathroom and voided 400. PVR for 205. DTV at 0100. After getting up to the bathroom pt c/onausea. Zofran offered and administered with good affect. Pt sleeping at this time. Boyfriend at bedside. * Grecia Reyez RN - 09/30/2018 7:49 PM EST Report received from [facility], care assumed. Pt sleepy, arouses with voice. 0: Dilaudid CALENDER OPERATOR HELPER set up, instructions given with return demonstration. 1944: Family at bedside. Pt recognizes LUQ discomfort as gas pain like I had my gallbladder out. 2014: I can tell its really gas pain, its moving. * Elenita Montanez RN - 09/30/2018 6:58 PM EST Pagejeanna SOLO for iv fluids for CALENDER OPERATOR HELPER order. * Elenita Montanez RN - 09/30/2018 [...] on ability to eat a healthy diet half-way after surgery and was encouraged to review the risks and benefits of both procedures in the BSP handbook, as well as online via the [employer] website. ?? BARIATRIC SURGERY PROGRAM PATHWAY ?? Review of progress with the requirements of the Bariatric Surgery Program: ?? 1. Education: She has attended a Introduction to the [facility] Bariatric Surgery Program seminar, a comprehensive two hour meeting that provides a program overview, education on bariatric surgeries offered at [facility], risks and benefits, as well as patient expectations and follow up [facility] Bariatric Surgery Program Educational seminars viewed 2. [...] weight loss have been unsuccessful in the orthodontist assistant. Refer to nutrition note by [facility] dietitian for weight and dieting history, 24 hour dietary intake and recent dietary changes. Motivating factors for seeking surgery for bariatric surgery: see RD note Patient research in addition to attendance at [facility] Bariatric Surgery Informational meeting and online Educational [...] care provider on file: Kezia Aguirre MD [phone] Advance Directive on file and Code Status: Full Code Patient???s Functional Status: Independent Living Situation: [address] [facility] [address] Supports: Mother Assessment: Patient with no apparent RNCM/SW needs at this time. No housing, transportation, insurance, resources concerns identified at this time. Supports in place to achieve a safe post-hospital transition. No identified barriers to accessing necessary care and/or follow-up after discharge. Plan: Patient to d/c to home via personal car when medically ready. pulper tender/Bill Cutter will continue to follow patient???s progress and remain available if situation changes for coordination of care, psychosocial support and/or discharge planning. Simran Schroeder RN Pager [phone] * Plan of Care - Ginette Aguilera RN - 10/01/2018 2:35 AM EST Problem: Patient Care Overview Goal: Plan of Care Review Outcome: Ongoing (Interventions Implemented as Appropriate) 09/30/18205110/01/18 0226 Plan of Care Review Progress -- progress toward functional goals as expected Coping/Psychosocial Plan Of Care Reviewed With patient -- OUTCOME EVALUATION NOTE: OUTCOME SUMMARY: Pt has had a good night. VSS. Voiding adequately. Last PVR 166. A+Ox4. Pain about a 6, utilizing road machine operator. Ambulated the halls. C/o gas pains and [...] in LUQ, no relief with use of CALENDER OPERATOR HELPER. MD notified. Slow deepbreaths encouraged. Heating pad [...] Bronson MD - 09/30/2018 6:16 PM EST [facility] Operative Note Patient Name: Tiffanie Monreal : [id number] MR#: [id number] Case Date: 09/30/2018 Surgeon: Surgeon(s) and Role: [...] the left alexand[place]. A firing of an [place]-CRISTINA 60 stapler with a purple load in [...] distal bowel was chosen to create the [id number] jejunojejunostomy. The duodenal, afferent limb was approximated [...] suture in two layers with a 30 Taiwanese Bougie (blunt-tipped) in place. The Bougie was [...] 8:00 AM EDT Office [place] [address] Julienne Lacey APRN [facility] [address] 07/24/2024 1:30 PM EST Office Visit [place] [phone] Jenni Brennan MD [facility] DR [facility] [place] [address] documented as of this encounter Procedures Procedure [...] 4:53 AM EST) Neutrophil % 83.0 % [facility] Neutrophil Absolute 7.68(H) 1.70 - 6.10 x10(3)/mc L [facility] Lymph % 9.8 % [facility] Lymphocytes Abs 0.9 0.9 - 3.2 x10(3)/mc L [facility] Monocyte % 6.8 % [facility] Monocyte Abs 0.6 0.3 - 0.9 x10(3)/mc L [facility] Eos % 0.0 % [facility] Eosinophils Abs 0.0 0.0 - 0.4 x10(3)/mc L [facility] Basophil % 0.1 % [facility] Baso Absolute 0.0 0.0 - 0.1 x10(3)/mc L [facility] Immature Gran % 0.30 % [facility] Comment: Immature granulocytes(IG's)percentage and absolute count will include metamyelocytes, myelocytes, and promyelocytes. Blood smears from CBCs yielding IG's will be scanned manually for concordance. If this scan disagrees with the automated IG or if promyelocytes are noted, a manual differential will be performed. Immature Gran Absolute 0.03 0.00 - 0.04 x10(3)/mc L [facility] Blood specimen (specimen) 10/01/2018 4:53 AM EST 10/01/2018 5:19 AM EST Narrative Resulting Agency Comment Spec In Lab Shan Neri MD HEMATOLOGY ORDERABLE S Performing Organization Address City/State/[facility] Co de Phone Number [facility] [place] [address] * Hemogram (10/01/2018 4:53 AM EST) White Blood Cell 9.3 4.0 - 9.5 x10(3)/[facility] Red Blood Cell 4.90 4.00 - 5.21 x10(6)/[facility] Hemoglobin 13.5 11.7 - 15.5 gm/dL [facility] Hematocrit 41.2 35.7 - 45.8 % [facility] Mean Cell Volume 84.1 82.6 - 94.4 fL [facility] Mean Cell Hemoglobin 27.6 27.1 - 32.0 pg [facility] Mean Cell Hemoglobin Concentration 32.8 31.7 - 35.0 gm/dL [facility] Platelet 257 145 - 357 x10(3)/[facility] RDW Standard Deviation 41.4 37.0 - 46.0 fL [facility] RDW coefficient of variation 13.4 11.5 - 14.1 % [facility] Mean Platelet Volume 10.7 7.6 - 12.9 fL [facility] NRBC% auto 0.0 % [facility] NRBC Absolute 0.000 0.000 - 0.000 x10(3)/mcL [facility] Blood specimen (specimen) 10/01/2018 4:53 AM EST 10/01/2018 5:19 AM EST Narrative Resulting Agency Comment Spec In Lab Shan Neri MD HEMATOLOGY ORDERABLE S Performing Organization Address City/[facility]/ZIP Co de Phone Number [facility] [place] [address] * (ABNORMAL) Creatinine (10/01/2018 4:53 AM EST) Creatinine 0.50(L) 0.70 - 1.20 mg/dL [facility] Est Glomerular Filtration Rate 127 >=60 mL/min/1.7 3 m?? [facility] Comment: The eGFR was calculated using the CKD-EPI equation. As with all creatinine based estimates of kidney function, eGFR values calculated with the CKD-EPI equation are not accurate in patients with acute kidney failure, extremes of body mass or the acutely ill. http://Nifti/[facility]OWnkf eGFR 147 >=60 mL/min/1.7 3 m?? [facility] Comment: The eGFR was calculated using the CKD-EPI equation. As with all creatinine based estimates of kidney function, eGFR values calculated with the CKD-EPI equation are not accurate in patients with acute kidney failure, extremes of body mass or the acutely ill. http://Nifti/[facility] Blood specimen (specimen) 10/01/2018 4:53 AM EST 10/01/2018 5:19 AM EST Narrative Resulting Agency Comment Spec In Lab Shan Neri MD CHEMISTRY ORDERABLES Performing Organization Address City/[facility]/ZIP Co de Phone Number [facility] [place] [address] * (ABNORMAL) BUN (10/01/2018 4:53 AM EST) Blood Urea Nitrogen 7(L) 8 - 18 mg/dL [facility] Blood specimen (specimen) 10/01/2018 4:53 AM EST 10/01/2018 5:19 AM EST Narrative Resulting Agency Comment Spec In Lab Shan Neri MD CHEMISTRY ORDERABLES Performing Organization Address [facility]/ZIP Co de Phone Number [facility] [place] [address] * (ABNORMAL) Electrolytes panel (10/01/2018 4:53 AM EST) Sodium 137 135 - 145 mmol/L [facility] Potassium 4.3 3.5 - 5.0 mmol/L [facility] Comment: Please note: ??Patients with WBC >100,000 may have falsely elevated Potassium levels. ??For accurate Potassium quantification in these patients send serum separator tube (gold top) for subsequent determinations. ??Contact the Clinical Chemistry Laboratory if there are any questions. Chloride 104 98 - 107 mmol/L [facility] Carbon Dioxide 21(L) 22 - 31 mmol/L [facility] Anion Gap 12 5 - 15 mmol/L [facility] Blood specimen (specimen) 10/01/2018 4:53 AM EST 10/01/2018 5:19 AM EST Narrative Resulting Agency Comment Spec In Lab Shan Neri MD CHEMISTRY ORDERABLES Performing Organization Address [facility]/ZIP Co de Phone Number [facility] [place] [place] [address] documented in this encounter Visit Diagnoses Diagnosis Morbid obesity documented in this encounter Administered Medications Inactive Administered Medications - up to 3 most recent administrations Medication Order MAR Action Action Date Dose Rate Site acetaminophen (OFIRMEV) injection 1,000 mg 1,000 mg, Intravenous, at 400 mL/hr, Administer over 15 Minutes, EVERY 6 HOURS SCHEDULED, 4 doses, First dose on Sat09/30/18 at 1900, Last dose on Sat10/01/18 at 1200, Maximum dose of acetaminophen is 4000 mg from all sources in 24 hours., Recovery (Recovery-Hospital Unit), Routine, Is ketorolac (Toradol) IV contraindicated? No, Can this patient tolerate oral medications or suppositories? Yes Given 10/01/2018 5:51 AM EST 1,000 mg 400 mL/hr Given 10/01/2018 12:55 AM EST 1,000 mg 400 mL/hr Given 09/30/2018 6:44 PM EST 1,000 mg 400 mL/hr acetaminophen (TYLENOL) 650 mg/20.3 mL oral liquid 650 mg 650 mg, Oral, EVERY 4 HOURS SCHEDULED, First dose on Sat10/01/18 at 0800, Until Discontinued, Maximum dose of acetaminophen is 4000 mg from all sources in 24 hours. , Routine Given 10/01/2018 12:25 PM EST 650 mg Given 10/01/2018 8:39 AM EST 650 mg acetaminophen (TYLENOL) tablet 1,000 mg 1,000 mg, Oral, ONCE, 1 dose, On Sat09/30/18 at 1515, Administer with SIP of H2O only., Day of Surgery (Day of Procedure), Routine Given 09/30/2018 3:03 PM EST 1,000 mg enoxaparin (LOVENOX) injection 40 mg 40 mg, Subcutaneous, ONCE, 1 dose, On Sat09/30/18 at 1530, Day of Surgery (Day of Procedure), Routine Given 09/30/2018 3:05 PM EST 40 mg Right Lower Quadrant enoxaparin (LOVENOX) injection 40 mg 40 mg, Subcutaneous, 2 TIMES DAILY, First dose on Sat10/01/18 at 0900, Until Discontinued, Recovery (Recovery-Hospital Unit), Routine Given 10/01/2018 8:39 AM EST 40 mg gabapentin (NEURONTIN) capsule 600 mg 600 mg, Oral, ONCE, 1 dose, On Sat09/30/18 at 1515, Administer with SIP of H2O only., Day of Surgery (Day of Procedure), Routine Given 09/30/2018 3:03 PM EST 600 mg HYDROmorphone (DILAUDID) 1 mg/mL CALENDER OPERATOR HELPER 50 mL Intravenous, CALENDER OPERATOR HELPER ONLY, Starting on Sat09/30/18 at 1900, Until Sat10/01/18 at 0656, Recovery (Recovery-Hospital Unit) New Syringe/Cartrid ge 09/30/2018 7:00 PM EST lactated Ringers infusion 125 mL/hr, Intravenous, CONTINUOUS, Starting on Sat09/30/18 at 1930, Until Sat10/01/18 at 1950, Recovery (Recovery-Hospital Unit) New Bag 10/01/2018 11:37 AM EST 125 mL/hr 125 mL/hr New Bag 10/01/2018 3:38 AM EST 125 mL/hr 125 mL/hr New Bag 09/30/2018 7:31 PM EST 125 mL/hr 125 mL/hr ondansetron (ZOFRAN) injection 4 mg 4 mg, Intravenous, EVERY 30 MIN PRN, 2 doses, Starting on Sat09/30/18 at 2044, Until Sat10/01/18 at 1029, Nausea, May repeat dose once in 30 minutes if no relief from previous dose. If multiple antiemetics are ordered, use ondansetron first, prochlorperazine second. Per CALENDER OPERATOR HELPER order. , Recovery (Recovery-Hospital Unit) Given 10/01/2018 10:29 AM EST 4 mg Given 09/30/2018 9:12 PM EST 4 mg oxyCODONE (ROXICODONE) 5 mg/5 mL solution 5 [...] shown in EST. Scheduled Medication Order 09/29/2018 09/30/201810/0110/01/2018 acetaminophen (OFIRMEV) injection 1,000 mg (CANCELED) 1,000 [...] suppositories? Yes 1844 (Given - Provider: Elenita Montanez, RN) 0055 (Given - Provider: Ginette Aguilera, RN)0551 (Given - Provider: Ginette Aguilera RN) acetaminophen [...] Unit), Routine 2100 (Given - Provider: Ginette Aguilera RN) 0840 (Given - Provider: Silvia Reich RN) Continuous Medication Order 09/29/2018 09/30/2018 10/01/2018 HYDROmorphone (DILAUDID) 1 mg/mL CALENDER OPERATOR HELPER 50 mL (CANCELED) Intravenous, CALENDER OPERATOR HELPER ONLY, Starting on Sat09/30/18 at 1900, Until Sat10/01/18 at 0656, Recovery (Recovery-Hospital Unit) 1900 (New Syringe/Cartridge - Provider: Grecia Reyez RN) lactated Ringers infusion 125 mL/hr, Intravenous, CONTINUOUS, Starting on Sat09/30/18 at 1930, Until Sat10/01/18 at 1950, Recovery (Recovery-Hospital Unit) 1931 (New Bag - Provider: Grecia Reyez, JUVE) 0338 (New Bag - Provider: Ginette Aguilera RN)1137 (New Bag - Provider: Silvia Reich RN) PRN Medication Order 09/29/2018 09/30/2018 10/01/2018 BUpivacaine (PF) (MARCAINE) 0.25 % (2.5 mg/mL) injection (CANCELED) ONCE PRN, Starting on Sat09/30/18 at 1559, Until Sat10/01/18 at 1950, Intra-Operative (Intra-Procedure), Routine 1559 (Given - Provider: Jerica Bronson MD - Comment: 30mL injected to abdominal laparoscopic sites) diphenhydrAMINE (BENADRYL) injection 25 mg 25 mg, Intravenous, EVERY 30 MIN PRN, 2 doses, Starting on Sat09/30/18 at 2044, Until Sat10/01/18 at 1950, Itching, May repeat dose in 30 minutes if pruritis not relieved. Per CALENDER OPERATOR HELPER order., Recovery (Recovery-Hospital Unit), Routine lidocaine (XYLOCAINE) 10 mg/mL (1 %) injection 3 mg 3 mg (0.3 mL), Subcutaneous, ONCE PRN, 1 dose, Starting on Sat09/30/18 at 2044, Until Sat10/01/18 at 1950, for discomfort with PIV insertion, Recovery (Recovery-Hospital Unit), Routine nalOXone (NARCAN) injection 0.2 mg 0.2 mg, Intravenous, EVERY 1 MIN PRN, Starting on Sat09/30/18 at 204, Until Sat10/01/18 at 1950, Opioid Reversal, May repeat every 60 seconds to increase respiratory rate. DO NOT exceed 2 mg total dose. Per CALENDER OPERATOR HELPER order., Recovery (Recovery-Hospital Unit), Routine ondansetron (ZOFRAN) injection 4 mg (COMPLETED) 4 mg, Intravenous, EVERY 30 MIN PRN, 2 doses, Starting on Sat09/30/18 at 2044, Until Sat10/01/18 at 1029, Nausea, May repeat dose once in 30 minutes if no relief from previous dose. If multiple antiemetics are ordered, use ondansetron first, prochlorperazine second. Per CALENDER OPERATOR HELPER order. , Recovery (Recovery-Hospital Unit) 2111 (Given [...] Sat09/30/18 at 2043, Until Sat10/01/18 at 1950, Nausea, May repeat in 30 minutes if no relief from previous dose. HOLD if patient is sedated. Maximum dose is 40 mg in 24 hours. If multiple antiemetics are ordered, use ondansetron first, prochlorperazine second. Per CALENDER OPERATOR HELPER order., Recovery (Recovery-Hospital Unit), Routine sodium chloride 0.9 % flush 5-20 mL 5-20 mL, Intravenous, EVERY 1 MIN PRN, Starting on Sat09/30/18 at 2043, Until Sat10/01/18 at 1950, flush, Flush pertains to all indwelling lines. Flush per protocol found in the job aid using the link provided on this medication record., Recovery (Recovery-Hospital Unit), Routine documented in this encounter Care Teams Community Health Representative Relationship Specialty Start Date End Date Kezia Aguirre MD [address] [place] [id number] PCP - General Family Medicine 12/24/16 12/30/22 documented as of this encounter
--- OUTSIDE RECORDS SUMMARY | 2024-05-25 14:51 | XMS_ITS | Encounter Summary ---
Author Organization [facility] [place] [address] Care Team Providers Care News Clerk Name Role Phone Kezia Aguirre MD Primary Care Provider [phone] Encounter Details Date Type Department Care Team (Late st Contact Info) Description 04/13/2020 Telephone [place] [phone] Lola Johnston RN Social History Tobacco Use Types Packs/Day [...] encounter Miscellaneous Notes * Telephone Encounter - Lola Hager RN - 04/13/2020 12:24 PM EDTSumcristian: MERVIN Approved PA Approved through for Omeprazole 40mg BID for one year * Telephone Encounter - Lola Hager RN - 04/13/2020 11:33 AM EDTSfuentes: MERVIN for Omeprazole PA submitted for Omeprazole 40mg BID Armando [id number] Faxed to [place] [employer] 04-13-2020 documented in this encounter Plan of Treatment Upcoming Encounters Date Type Department Care Team (Late st Contact Info) Description 06/02/2024 8:00 AM EDT Office [place] [address] Julienne Lacey APRN [facility] [place] [address] 07/24/2024 1:30 PM EST Office Visit [place] [phone] Jenni Brennan MD [facility] DR [facility] [place] [address] documented as of this encounter Visit Diagnoses Not on filedocumented in this encounter Care Teams News Clerk Relationship Specialty Start Date End Date Kezia Aguirre MD [address] [place] [address] PCP - General Family Medicine 12/24/16 12/30/22 documented as of this encounter
--- OUTSIDE RECORDS SUMMARY | 2024-05-25 14:51 | XMS_ITS | Encounter Summary ---
Author Organization [facility] [place] [address] Care Team Providers Care Railroad Crane Operator Name Role Phone Kezia Aguirre MD Primary Care Provider Encounter Details Date Type Department Care Team (Late st Contact Info) Description 09/07/2020 Telephone [place] [phone] Alonso-Florecita Woodward Social History Tobacco Use Types Packs/Day Years [...] encounter Miscellaneous Notes * Telephone Encounter - Florecita Gupta - 09/07/2020 2:26 PM EST Returned patients call about scheduling a FUV. documented in this encounter Plan of Treatment Upcoming Encounters Date Type Department Care Team (Late st Contact Info) Description 06/02/2024 8:00 AM EDT Office [place] [phone] Julienne Lacey APRN [facility] [place] [address] 07/24/2024 1:30 PM EST Office Visit [place] [address] Jenni Brennan MD [facility] [address] [facility] [place] [address] documented as of this encounter Visit Diagnoses Not on filedocumented in this encounter Care Teams Railroad Crane Operator Relationship Specialty Start Date End Date Kezia Aguirre MD [address] [place] [phone] PCP - General Family Medicine 12/24/16 12/30/22 documented as of this encounter
--- OUTSIDE RECORDS SUMMARY | 2024-05-25 14:51 | XMS_ITS | Encounter Summary ---
Author Organization [facility] Address [facility] [place] [address] Care Team Providers Care Automation/Controls Manager Name Role Phone Kezia Aguirre MD Primary Care Provider [phone] Reason for Visit * Reason Comments Follow-up S/P gastric bypass F ebruary 2019 Encounter Details Date Type Department Care Team (Late st Contact Info) Description 07/24/2019 9:00 AM EST Office Visit [place] [address] Analy Cervantes, FLEXOGRAPHIC PRESS OPERATOR [facility] [place] [address] Liane Glass, RD [facility] [place] [address] Post-resection malabsorption; Disorder of iron metabolism; Status post bariatric surgery; Vitamin D deficiency Social History Tobacco Use [...] Sign Reading Time Taken Comments Blood Pressure 134/68 07/24/2019 8:52 AM EST Pulse 82 07/24/2019 8:52 AM EST Temperature - - Respiratory Rate 16 07/24/2019 8:52 AM EST Oxygen Saturation 99% 07/24/2019 8:52 AM EST Inhaled Oxygen Concentration - - Weight 97.9 kg (215 lb 12.8 oz) 07/24/2019 8:52 AM EST Height 165.1 cm (5' 5) 07/24/2019 8:52 AM EST Body Mass Index 35.91 07/24/2019 8:52 AM EST documented in this encounter Patient Instructions * Patient Instructions* HelenAnaly T - 07/24/2019 9:00 AM EST [facility] lead performance support analyst Florecita [phone] and Casandra [phone] Dietitians: [phone] Surgeons/ nurse practitioners: [phone] Nurse line: [phone] Testing: Labwork: Today. Go to [facility], which is 1 flight below the General Surgery Clinic (or anyDH lab including [facility] [address] (open on Saturdays) Please note that you will always receive a letter with lab results and recommendations. Read the letter carefully and follow recommendations. The letter also contains information regarding your next lab draw. A copy of your lab tests and office visit today is sent to your primary manager respiratory care Next visit: November Routine visits are done at 4.8,12, 18 and 24 months after surgery, and yearly thereafter. Please call [phone] if you do not receive an appointment by 3-4 weeks prior to the expected visit. Medications: recommendations pending testing results Referrals: We will discuss a referral to plastic surgery at next visit ?? Plastic surgery referral can be made after your weight loss has stabilized, no earlier than one year after surgery. ?? Having a plastic surgery appointment scheduled does not commit you to surgery or costs; considerit informational. You can plan on surgery later if you are not ready, or decline surgery. It is helpful to meet with the plastic surgeon to learn your options. ?? Pictures of the areas of sagging will be taken for insurance purposes ?? Check with your insurer if plastic surgery is covered, and if covered, for their guidelines. Guidelines generally include a BMI of less than 30 or 35, documentation of chronic rashes and treatmentof chronic rashes. Not all insurance policies provide coverage plastic surgery, particularly for the arms and legs. The final decision for coverage is made by your insurer. ?? If your insurance policy has an exemption for plastic surgery coverage, the insurer will not pay for surgery, and you would be responsible for payment. ?? Schedule a visit with your PCP if you are having skinfold rashes to provide documentation of rashes and treatment ?? potential risks and complications may include but are not limited to pain, bleeding, infection, scarring, asymmetry, loss of umbilicus, hematoma, seroma, poor cosmetic outcome, failure of procedure, possible need for revision, damage to adjacent structures. ?? Body contouring surgery is more painful than bariatric surgery. Recovery from surgery is 4-6 weeks. Vitamins: The following vitamins are recommended: ??? Multivitamins with minerals twice daily- needs to be an under 50 multivitamin that contains iron. ??? Vitamin B12 500 mcg by mouth once daily ??? Calcium citrate 500-600 mg with Vitamin D 400 units twice daily (600 mg in AM and 600 mg in PM-2 pills twice a day) (or 1 chewable twice a day) ??? Iron with Vitamin C, 50-66 mg once daily (take iron with vitamin C 250 mg to help with absorption) only if you have regular periods, iron deficiency or anemia. Nutrition recommendations: - Your Daily Goals: ?? 1,000-1,200 calories [...] Our post surgery support group meets at [facility] no registration required 1. on the saturday of every month from 1:00 PM-2:00 PM 2. On the saturday of the month from 4:30 PM to 5:30 PM Nutrition and Activity apps- Baritastic, My Fitness Pal, Lose It, My Plate Internet resources: www.Trendalytics wwwRealConnex.com wwwShopRunner www.Demandforce/blog [facility] facebook page: https://www.facebook.[email or web address]/[email or web address]ORE[facility]ariatricSurgery Books & Magazines: - Recipes for Life After Weight Loss Surgery by Ally Schmitt - Shrink Yourself by Dr Alban Mendez - Eating Well - www.Pitzi - Cooking Light- www.cookinglight.MegaHoot Anxiety: The Happiness Trap by Carlos A Tee The Mindfulness and acceptance workbook for anxiety By Rodriguez Zelaya. Mindful eating: What are you Hungry For? By Eugene Braden The Mindful Diet by Simran Hdez and the [facility] group. Emotional eating: End Emotional Eating by Liane Khalil Calming the Emotional Storm Lisseth Ayala documented in this encounter Progress Notes * Liane Glass, RD - 07/24/2019 9:00 AM EST Bariatric Surgery Program Nutrition Progress Note Encounter Type: follow up SUBJECTIVE: Topics Discussed/Patient Concerns: ?? No dietary concerns. ?? Hardest thing: going out to eat and choosing what to eat first (getting protein in first). ?? Occ attends support groups at 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 Weight History: Date Weight (lbs) Height (inches) BMI ? Max wt 311# 12/04/17 296.2# ? Initial program weight 08/25/18 295# 65 49 1st pre-op visit 09/30/18 ?? %EWL ?? Surgery 10/24/18 275# 14% 45.8 1st post-op check 07/24/19 215.8# 55% 35.9 10 month follow-up ? Vitamin/Mineral Supplements (reported by patient): * Of note, pt's vitamin B12 and vitamin D levels are decreasing. Supplement Type Brand/Form Dosage/Amount Frequency Comments Multivitamin Bariatric Fusion 1 wafer 3-4 x daily ?? Calcium ? In Fusion Vitamin B12 ? In Fusion Iron ? In Fusion Biotin 1 pill daily Vitamin D2 prescription 25956 IU weekly ? Food Allergies/Intolerances: pork- not as bad as it was. (m[place]leton or pork chops). Dairy- milk, ice cream- stomach cramps, diarrhea. Can do cheese, cottage cheese, small amount regular yogurt, Wolof yogurt Tracking Intake: still tracking using a notebook. For a time wasn't getting in protein so restartedtracking to help. 24-Hour Intake: Breakfast Breakfast s/w - EM, 2-3 egg whites and 2 sl cheddar cheese OR EM with PB and banana OR Wolof yogurt, granola and berries AM Snack 2 string cheeses OR fruit and PB Lunch 3-4 sl turkey (roasted), 1/4 c stuffing and cranberry sauces - varies bc she eats at work. Back up plan is salad with lunch meat PM Snack Same as morning snack OR [place] protein bar Dinner Baked chicken, broccoli, rice HS Snack Protein/ grams per day: ~60 Hydrating fluids- oz/ day: 3-4 Liter bottles water at work Soda: None ETOH: None Caffeine: Diet Snapple Sweets: Rare. Will eat berries or apples and PB or nuts when she gets craving, granola bar Meals per day: 3 ?? Feels full/satisfied after eating: yes ?? Feels hungry: not really. Maybe a little head hunger when bored. ?? Drinks with meals: None. ?? Practices portion control: yes. ?? Has had dumping syndrome: ice cream ?? In the past month, pt has vomited/regurgitated: None. ?? Constipation/Diarrhea: occ. If eats too much cheese will get a little constipated Exercise: pulled ligament so wass limited for a time. Gym 3-4 x week 20 minutes on TM and 20-30 minutes of strength training. Just restarting- right now at 2 days. ASSESSMENT: Summary of Weight Loss: ?? Patient's percent excess weight loss is 55%. She is doing well with the diet and is meeting protein and fluid needs. She is taking the rec supplements however may need more B12 and vitamin D. Blood work to be done today to assess adequacy of current supplementation. She is building her exercise routine back to previous levels. NUTRITION INTERVENTION & MONITORING: ?? Provided support/encouragement and reinforced importance of meeting nutritional goals. ?? Reviewed nutrition and vitamin and mineral supplement recommendations. Written recommendations provided. Patient agreed with these and verbalized adequate understanding. ?? Evaluation by nurse practitioner today. * Analy Cervantes T - 07/24/2019 9:00 AM EST Reason for visit: Follow up S/P laparoscopic Shelbie-en-Y gastric bypass 09/30/2018 Complications summary: Early none Late none Visits summary: Compliance with [facility] follow up: good Attendance at [facility] post-operative graduate support group meetings:none Pre-op 08/25/18 [...] D 50 K/wk 07/24: ferritin 46 iron 108sat 33% B12 248 Folate >20 D 21 Date Evaluation Results 12/2018 Primary care Was seen for lightheadedness, dizziness- low blood glucose, she has periods with low intake N/a EGD N/a Colonoscopy Problem List/ updated today ??? Preoperative Class III obesity. S/P gastric bypass ??? Upper airway resistance syndrome with sleep fragmentation: sleeps well, no concerns ??? Insomnia ??? Breast hypertrophy ??? Psychosocial issues: reports as stable - Anxiety disorder - MDD ??? Vitamin B12 deficiency (285 in January 2019): Vitamin D deficiency preoperatively (11 ): Iron deficiency Past Surgical History: Procedure Laterality Date ??? SECTION, LOW TRANSVERSE 2003 ??? SECTION, LOW TRANSVERSE 2007 ??? CHOLECYSTECTOMY, LAPAROSCOPIC ??? HYSTERECTOMY ??? PRO LAP GASTRIC BYPASS/SHELBIE-EN-Y N/A 09/30/2018 @LAPAROSCOPIC GASTROPLASTY, (WRVU 29.4) performed by Jerica Dubose MD at [facility] MAIN OR ??? PRO UPPER GI ENDOSCOPY, DIAGNOSTIC N/A 09/30/2018 ENDOSCOPY, UPPER GI, DIAGNOSTIC, WITH OR WITHOUT SPECIMENS performed by Jerica Dubose MD at [facility] OR ??? TUBAL LIGATION Bilateral 2007 Allergies Allergen Reactions ??? Cough Syrup [Guaifenesin] Anaphylaxis ??? Spider Venom Other (See Comments) Ask patient. Medications 01/22/19 0728 Medication Sig Taking? multivit-min/iron/folic acid/K (BARIATRIC MULTIVITAMINS ORAL) Take 1 [...] as per updated problem list and e-DH Subjective. Patient concerns at today's visit: Tiffanie returns for routine follow up at 8 months post surgery. She is feeling well overall Dietary and physical activity history: As per RD note. Bowel regimen: regular NSAID use: Rare if headche Review of Systems (negative if left blank): Constitutional: [] fatigue [] pica [] restless leg [x] hair loss - mild Neurologic: [] paresthesias [] memory loss CV: [] treatment for hypertension or taking antihypertensive medication [] treatment for hyperlipidemia Pulmonary: [] sleep apnea symptoms [] treatment for ESTHELA GI: [] heartburn [] reflux [] dysphagia [] dumping [] abdominal pain [] hernia [] nausea/vomiting [] blood in stool [] chronic diarrhea [] constipation [employer]ER: [] LMP: [] control [] menorrhagia [x] post-menopause Skin: [x] redundant skin abdomen, [x] skinfold rashes treated with nystain, legs are sore and upperarms, inner both thighs Heme/Lymph: [] excessive bruising or bleeding [] blood donor in past year Psychiatric [] mental health concerns Other: Employment/social: fulltime as 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 year-old female in [facility], looks well. Heart: Normal S1S2. RRR Lungs: CTA bilaterally without wheezing Abdomen: soft, non-tender. Abdominal trocar sites well-healed, without evidence of hernia. Extremities: no lower extremity edema Vital signs: BP 134/68 (BP Location (NBP): Right arm, Patient Position: Sitting, BP Cuff Sizes: Adult (25-34 cm)) Pulse 82 Resp 16 Ht 165.1 cm (5' 5) Wt 97.9 kg (215 lb 12.8 oz) SpO2 99% BMI 35.91 kg/m?? Today's lab data: Resulted Orders Folate, serum Result Value Ref Range Folate Lvl >20.0 4.8 - 24.2 ng/mL Vitamin B12 Result Value Ref Range Vitamin B-12 246 232 - 1,245 pg/mL Vitamin D, 25-Hydroxy Result Value Ref Range 25-OH Vit D Total 21 (L) 30 - 100 ng/mL Ferritin Result Value Ref Range Ferritin 46 15 - 150 ng/mL Iron and TIBC Result Value Ref Range Iron 108 30 - 150 mcg/dL TIBC 324 250 - 450 mcg/dL Iron Saturation 33 20 - 50 % Assessment: Stable S/P gastric bypass, with loss of 55% of excess body weight. Vitamin D and B12 deficiencies. Plan: ?? Tiffanie's healthy lifestyle efforts were acknowledged. Dietary/ exercise recommendations: as per Mis GALO ?? E-DH medical record since last BSP visit reviewed. ?? Next BSP visit with routin labwork: 4 months. Recheck vitamin B12 in one months ?? Vitamin and mineral supplement recommendations: increase bariatric Fusion to 4 tablets daily or 2 tablets twice a day. Start vitamin B12 2000 mcg daily. Continue vitamin D 50,000 units weekly until next visit. Continue iron with vitamin C daily. ?? Advised to call if develops unexplained abdominal pain, concerns or questions. Risks specific tobariatric procedure discussed ?? Tiffanie was advised of lab results via e-DH and mail. She was provided with a Bariatric Program Summary report which included the above recommendations, as well as information on vitamin and mineral supplementation, fluids, exercise and support group meetings. She has had an opportunity to have all her questions answered and is in agreement with the plan of care. RECOMMENDED BARIATRIC SURGERY PROGRAM POSTOPERATIVE FOLLOW-UP: Follow [...] If labwork is done by the primary manager respiratory care: pleasefax a copy to the Bariatric Surgery Program, General Surgery Clinic, [facility], ), Questions regarding [facility] Bariatric Surgery Program patients: please call the Bariatric Surgery Program at [phone] documented in this encounter Plan of Treatment Upcoming Encounters Date Type Department Care Team (Late st Contact Info) Description 06/02/2024 8:00 AM EDT Office Visit [place] [address] Julienne Lacey APRN [facility] [place] [address] 07/24/2024 1:30 PM EST Office Visit Weight [place] [phone] Jenni Brennan MD [facility] [address] [place] [address] documented as of this encounter Procedures Procedure Name Priority Date/Time Associated Diagnosis Comments HC IRON BINDING CAPACITY Routine 07/24/2019 10:19 AM EST Post-resection malabsorption Disorder of iron metabolism Status post bariatric surgery HC VITAMIN D TOTAL-25 HYDROXY Routine 07/24/2019 10:19 AM EST Post-resection malabsorption Status post bariatric surgery HC VENIPUNCTURE Routine 07/24/2019 10:19 AM EST Post-resection malabsorption Disorder of iron metabolism Status post bariatric surgery HC FERRITIN, SERUM Routine 07/24/2019 10 :19 AM EST Post-resection malabsorption Disorder of iron metabolism Status post bariatric surgery HC VITAMIN B12 SERUM Routine 07/24/2019 10:19 AM EST Post-resection malabsorption Disorder of iron metabolism Status post bariatric surgery Vitamin D deficiency documented in this encounter Results * Folate, serum (07/24/2019 10:19 AM EST) Folate >20.0 4.8 - 24.2 ng/mL [facility] Blood specimen (specimen) 07/24/2019 10:19 AM EST 07/24/2019 10:40 AM EST Narrative Resulting Agency Comment Spec In Lab Analy Cervantes FLEXOGRAPHIC PRESS OPERATOR CHEMISTRY ORDERAB LES Performing Organization Address City/[facility]/ZIP Co de Phone Number [facility] [place] [address] * Vitamin B12 (07/24/2019 10:19 AM EST) Pathologist [facility] Vitamin B12 246 232 - 1,245 pg/mL [facility] Blood specimen (specimen) 07/24/2019 10:19 AM EST 07/24/2019 10:40 AM EST Narrative Resulting Agency Comment Spec In Lab Analy Cervantes FLEXOGRAPHIC PRESS OPERATOR CHEMISTRY ORDERAB LES Performing Organization Address [facility] de Phone Number [facility] [place] [address] * (ABNORMAL) Vitamin D, 25-Hydroxy (07/24/2019 10:19 AM EST) [facility] Vitamin D Total 25 OH 21(L) 30 - 100 ng/mL [facility] Comment: As of 2019, 25-hydroxyvitamin D testing has moved from the [facility] to the [facility]. No substantial change in measured values is expected. Blood specimen (specimen) 07/24/2019 10:19 AM EST 07/24/2019 10:40 AM EST Narrative Resulting Agency Comment Spec In Lab Analy Cervantes FLEXOGRAPHIC PRESS OPERATOR CHEMISTRY ORDERAB LES Performing Organization Address [facility] Co de Phone Number [facility] [place] [address] * Ferritin (07/24/2019 10:19 AM EST) [facility] Ferritin 46 15 - 150 ng/mL [facility] Comment: Pediatric reference ranges not verified at [facility], interpret with caution. Reference ranges for females greater than 50 years of age approach values for men, i.e., 30-400 ng/mL. Blood specimen (specimen) 07/24/2019 10:19 AM EST 07/24/2019 10:40 AM EST Narrative Resulting Agency Comment Spec In Lab Analy Cervantes FLEXOGRAPHIC PRESS OPERATOR CHEMISTRY ORDERAB LES Performing Organization Address City/[facility]/ZIP Co de Phone Number [facility] [place] [address] * Iron and TIBC (07/24/2019 10:19 AM EST) Iron 108 30 - 150 mcg/dL [facility] TIBC 324 250 - 450 mcg/dL [facility] Iron Saturation 33 20 - 50 % [facility] Blood specimen (specimen) 07/24/2019 10:19 AM EST 07/24/2019 10:26 AM EST Narrative Resulting Agency Comment Spec In Lab Analy Cervantes APRN CHEMISTRY ORDERAB LES Performing Organization Address [facility] Co de Phone Number [facility] [place] [address] documented in this encounter Visit Diagnoses Diagnosis Post-resection malabsorption Other and unspecified postsurgical nonabsorption Disorder of iron metabolism Other disorders of iron metabolism Status post bariatric surgery Bariatric surgery status Vitamin D deficiency Unspecified vitamin D deficiency documented in this encounter Care Teams Automation/Controls Manager Relationship Specialty Start Date End Date Kezia Aguirre MD [address] [place] [address] PCP - General Family Medicine 12/24/16 12/30/22 documented as of this encounter
--- OUTSIDE RECORDS SUMMARY | 2024-05-25 14:51 | XMS_ITS | Encounter Summary ---
Author Organization [facility] Address [facility] [place] [address] Care Team Providers Care Manager Endoscopy Name Role Phone Kezia Aguirre MD Primary Care Provider [phone] Reason for Visit * Reason Comments Follow Up Surgery s/p bariatric surger y Encounter Details Date Type Department Care Team (Late st Contact Info) Description 10/24/2018 1:00 PM EDT Office [place] [id number] Flavia Edwards APRN [facility] [place] [address] [facility] [place] [address] S/P bariatric surgery; Intertrigo Social History Tobacco Use Types Packs/Day Years [...] Sign Reading Time Taken Comments Blood Pressure 137/73 10/24/2018 12:49 PM EDT Pulse 80 10/24/2018 12:49 PM EDT Temperature - - Respiratory Rate 16 10/24/2018 12:4 9 PM EDT Oxygen Saturation 99% 10/24/2018 12: 49 PM EDT Inhaled Oxygen Concentration - - Weight 124.9 kg (275 lb 6.4 oz) 019 12:49 PM EDT Height 165.1 cm (5' 5) 10/24/2018 12:4 9 PM EDT Body Mass Index 45.83 10/24/2018 12:49 PM EDT documented in this encounter Patient Instructions * Patient Instructions* Flavia Edwards, [employer]ING FINISHER AND STUFFER - 10/24/2018 1:00 PM EDT Bariatric Surgery Program First Post-operative Follow up visit Contact information: [facility] patient support representative: Florecita: [phone] and Casandra [phone] Dietitians: [phone] Surgeons/ nurse practitioners: [phone] Nurse line: [phone] Next follow up visit: at 4 months post-op. Testing: Labwork will be done at your 4 month post op check. If you have labwork done by your primary health care recruiter before that date, please have a copy sent to the Bariatric Surgery Program. Post surgery Medications: 1. Medication to prevent ulcer, as prescribed prior to surgery, needs to continue until you are at least 3 months post surgery, or as indicated by your primary care doctor. 2. If you have a gallbladder, continue to take Ursodiol 300 mg twice daily for a total of 6 months after surgery to prevent gallstones from forming, and to shrink any gallstones that may be present. Vitamin and mineral supplementation recommendations: The following vitamins are recommended: ??? Multivitamins [...] Nutrition recommendations: - Your Daily Goals: ?? 3 meals per day. Snacks if physically hungry or you need to increase your protein and/or calories (choose protein and/or fruit) ?? 60 grams protein per day (20 grams per meal) ?? 48-64 oz of non-caloric and hydrating fluids per day (6-8, 8 oz cups) Activity: ??? Aim for 30 minutes of exercise daily, 5 days a week of both cardio and strength training exercises. Alcohol: is not recommended for at least 6-12 months after surgery. It should be used sparingly, nomore than one drink per occasion. Alcohol is a source of empty calories and can cause ulcers and vitamin and mineral deficiencies. Studies have noted that there is an increased risk of alcohol dependence after surgery. Hair Loss: is associated with rapid weight loss and is seen approximately 3 to 6 months after surgery and can last 3 to 6 months. It is almost always temporary. Eating a healthy diet with 60 grams ofprotein per day and taking your multivitamin with minerals will help. control for women of child bearing age: is recommended for at least 18-24 months after surgery. Call us: ??? If you have concerns. ??? If you have unexplained abdominal pain. ??? if you see blood in your stool or vomit blood ??? If you have prolonged vomiting Post Surgery Support Group: Our post surgery support group meets on the first Saturday of every month from 1-2 PM at [facility] Nutrition and Activity apps- Baritastic, My Fitness Pal, Lose It Internet resources: www.NetMovie wwwdynaTrace software www.bariatriceating.Communicado www.Xand.Communicado/blog [facility] facebook page: [email or web address]://www.[email or web address]/[facility]ric[facility]gery Books & Magazines: - Recipes for Life After Weight Loss Surgery by Ally Schmitt - Shrink Yourself by Dr Alban Mendez - Eating Well - Cooking Light documented in this encounter Progress Notes * Flavia Edwards APRN - 10/24/2018 1:00 PM EDT Reason for visit: First post-operative check S/P laparoscopic Shelbie-en-Y gastric bypass 09/30/2018 DrTrus Complications summary: Early none Late - Visits summary: Compliance with BSP follow up: good Attendance at [facility] post-operative graduate support group meetings:none Pre-op 08/25/2018 Wt (lbs) 295 BMI 49 Visit #2 WT: HT: 65 Post-op %EBW lost Supplement compliance Labwork 10/24/2018 275 45.83 14 Good, using fusion -none indicated today Next visit with lab: 4 months Patient Active Problem List Diagnosis Code ??? Breast hypertrophy N62 ??? Morbid obesity E66.01 ??? 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 Insomnia G47.00 ??? Major depressive disorder F32.9 ??? Anxiety disorder F41.9 Medications 10/24/18 1328 Medication Sig Taking? omeprazole (PRILOSEC) 20 mg [...] 29.4) performed by Jerica Dubose MD at [facility] MAIN OR ??? PRO UPPER GI ENDOSCOPY, DIAGNOSTIC N/A 09/30/2018 ENDOSCOPY, UPPER GI, DIAGNOSTIC, WITH OR WITHOUT SPECIMENS performed by Jerica Dubose MD at [facility] OR ??? TUBAL LIGATION Bilateral 2007 Hospital course: Tiffanie Monreal is a 33 y.o. female who was admitted on 09/30/2018 s/p bariatric surgery gastric bypass. Operative course was uneventful. On POD#1 the patient had no complaints overnight, pain controlled, denies nausea/vomitting. 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 POD#1 she [...] was discharged to home in stable condition. ?? Visits to emergency department or other unplanned visit to a health care facility since surgery? None Subjective: Patient concerns at today's visit: Tiffanie returns for her first post surgery follow up. She denies any problems. Went back to work at about 2 weeks and is doing fine with that. She has no complaints today. Dietary history/ exericse/ activity level: See dietitian note from today's visit for complete dietary evaluation. Primary care post op check: didn't see PCP as couldn't get in to see her until the end of the month, she didn't have any issues so didn't pursue Wound issues: None Bowel issues: None, took miralax when she got home and has not had to take any since, has been having a bowel movement every day. Feels like her bowel are more normal and regular than they have been ever Urinary tract issues: None Post Bariatric Surgery Required Medications: Extended VTE prophylaxis post surgery N/A. Post-discharge narcotic analgesic use Used only a couple of times, none now Ursodiol gallstone prophylaxis N/a PPI ulcer prophylaxis: Taking omeprazole Review of Systems (negative if left blank): Constitutional: [] fatigue Neurologic: [] paresthesias CV: []treatment for hypertension or taking antihypertensive medication [] treatment for hyperlipidemia Pulmonary: [] sleep apnea symptoms [] treated for ESTHELA GI: []GERD []dysphagia [] abdominal pain [] hernia [] nausea/vomiting - only once when she had a tiny piece of meat by mistake at work [] blood in stool JUVENILE JUSTICE SPECIALIST: [] LMP: [] control [] post-menopause , s/p hysterectomy : [] ED [] hesitancy []incontinence Extremities: [] edema Psychiatric [] mental health concerns- no concerns, she had one bad day when she felt like she had a meltdown I just wanted to eat but I didn't really want to and I didn't know what to do, I went for a walk and was fine Skin: Has rashes in abdominal skin folds, has been using baby powder and excellent hygiene Health-related habits/other: Tobacco: none Alcohol: None 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 year-old female who appears stated age, NAD Heart: S1S2 distinct, no extra sounds or murmurs. RRR Lungs: Clear all lobes A&P, effort minimal, pattern regular Abdomen: soft, non-tender, no masses, no rebound, +BS . Abdominal trocar sites, pink, one suture present, removed without incident, adhesive removed with adhesive remover. Extremities: LE no edema, pulses present Vital signs: BP 137/73 (BP Location (NBP): Right arm, Patient Position: Sitting, BP Cuff Sizes: Large Adult (32-43 cm)) Pulse 80 Resp 16 Ht 165.1 cm (5' 5) Wt 124.9 kg (275 lb 6.4 oz) KxS193% BMI 45.83 kg/m?? Assessment: S/P bariatric surgery 3+ weeks ago, with uneventful early post- operative course. Plan: ?? advised to continue PPI therapy for another 2 months to decrease the risk of ulcer formation andavoid NSAIDs, If she has any sx of GERD after stopping instructed to continue ?? dietary and supplement recommendations per dietitian at today's visit. ?? lifting restrictions: none ?? Next BSP follow up with labwork at 4 months post-operatively ?? Tiffanie is aware that alcohol is not recommended until 6-12 months post- operatively, and then should be used in small amounts, since it is a source of empty calories and may cause ulcers, and interfere with vitamin and mineral absorption. She was provided with a Bariatric Program Summary report which included the above written recommendations, as well as recommendations regarding vitamin and mineral supplementation, fluid intake and exercise. She is aware that she can call the Bariatric Surgery Program at any time with questions or concerns. RECOMMENDED BARIATRIC SURGERY PROGRAM POSTOPERATIVE FOLLOW-UP: Follow [...] VENECIA. Labwork: Hemogram, ferritin, iron (transferrin) saturation, iron., Vitamins: folate, B1, B12, D (25hydroxy only), Intact PTH and comprehensive metabolic profile at 4, 12 and 24 months, and yearly. Prealbumin is done at 4 and 12 months and PRN. If labwork is done by the primary health care recruiter: please send a copy to the Bariatric Surgery Program, General Surgery Clinic, [facility], or fax [phone] Questions regarding [facility] Bariatric Surgery Program patients: please call [phone]. documented in this encounter Miscellaneous Notes * Addendum Note - Flavia Edwards APRN - 10/24/2018 1:00 PM EDTAddended by: FLAVIA EDWARDS on: 10/24/2018 03:12 PM Modules accepted: Orders documented in this encounter Plan of Treatment Upcoming Encounters Date Type Department Care Team (Late st Contact Info) Description 06/02/2024 8:00 AM EDT Office [place] [address] Julienne Lacey APRN [facility] [address] 07/24/2024 1:30 PM EST Office Visit [place] [phone] Jenni Brennan MD [facility] [place] [address] documented as of this encounter Visit Diagnoses Diagnosis S/P bariatric surgery Bariatric surgery status Intertrigo Other specified erythematous condition documented in this encounter Care Teams Manager Endoscopy Relationship Specialty Start Date End Date Timothy, Kezia, MD [address] [place] [address] PCP - General Family Medicine 12/24/16 12/30/22 documented as of this encounter
--- OUTSIDE RECORDS SUMMARY | 2024-05-25 14:51 | XMS_ITS | Encounter Summary ---
Author Organization Formerly [facility] [place] [address] Care Team Providers Care Milk Treater Name Role Phone Kezia Aguirre MD Primary Care Provider [phone] Encounter Details Date Type Department Care Team (Latest Contact Info) Description 09/26/2020 11:55 AM EST Laboratory Appointment Lab [address] [place] [address] Bariatric surgery status: 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; Iron deficiency; Post-resection malabsorption; Low vitamin B12 level Social History Tobacco Use Types Packs/Day Years [...] 8:00 AM EDT Office [place] [address] [facility] [place] [address] 07/24/2024 1:30 PM EST Office [place] [address] [facility] [place] [address] documented as of this encounter Procedures Procedure Name Priority Date/Time Associated Diagnosis Comments HC PARATHYROID HORMONE(PTH INTACT Routine 09/26/2020 12:20 PM EST Bariatric surgery status: 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 Iron deficiency Post-resection malabsorption Low vitamin B12 level HC HEMOGRAM Routine 09/26/2020 12:20 PM EST Bariatric surgery status: 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 Iron deficiency Post-resection malabsorption Low vitamin B12 level HC PCH THIAMIN LVL(VITAMIN B1) WB-RIDER Routine 09/26/2020 12:20 PM EST Bariatric surgery status: 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 Iron deficiency Post-resection malabsorption Low vitamin B12 level HC IRON BINDING CAPACITY Routine 09/26/2020 12:20 PM EST Bariatric surgery status: 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 Iron deficiency Post-resection malabsorption Low vitamin B12 level HC VITAMIN D TOTAL-25 HYDROXY Routine 09/26/2020 12:20 PM EST Bariatric surgery status: 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 Iron deficiency Post-resection malabsorption Low vitamin B12 level HC HEMOGLOBIN A1C Routine 09/26/2020 12: 20 PM EST Bariatric surgery status: 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 Iron deficiency Post-resection malabsorption Low vitamin B12 level HC FOLATE, SERUM Routine 09/26/2020 12:2 0 PM EST Bariatric surgery status: 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 Iron deficiency Post-resection malabsorption Low vitamin B12 level HC FERRITIN, SERUM Routine 09/26/2020 12 :20 PM EST Bariatric surgery status: 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 Iron deficiency Post-resection malabsorption Low vitamin B12 level HC VITAMIN B12 SERUM Routine 09/26/2020 12:20 PM EST Bariatric surgery status: 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 Iron deficiency Post-resection malabsorption Low vitamin B12 level LIPID PANEL (REFLEX DIRECT LDL) Routine 09/26/2020 12:20 PM EST Bariatric surgery status: 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 Iron deficiency Post-resection malabsorption Low vitamin B12 level HC VENIPUNCTURE Routine 09/26/2020 12:20 PM EST Bariatric surgery status: 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 Iron deficiency Post-resection malabsorption Low vitamin B12 level documented in this encounter Results * Lipid Panel (Reflex Direct LDL) (09/26/2020 12:20 PM EST) Pathologist [facility] Cholesterol, Total 139 mg/dL [facility] Comment: Lower Risk: <200 mg/dL Average Risk: 200-239 mg/dL Higher Risk: >ah=952 mg/dL Triglyceride 59 mg/dL [facility] Comment: Average Risk/Lower Risk: <150 mg/dL Borderline High Risk: 150-199 mg/dL High Risk: 200-499 mg/dL Very High Risk: >hb=528 mg/dL HDL Cholesterol 60 mg/dL [facility] Comment: Males: ?? Higher Risk: <40 mg/dL Females: ?? HIgher Risk: <50 mg/dL LDL Cholesterol 67 mg/dL [facility] Comment: Lowest Risk: <100 mg/dL Lower Risk: 100-129 mg/dL Borderline High Risk: 130-159 mg/dL High Risk: 160-189 mg/dL Very High Risk: >ay=501 mg/dL Cholesterol/HDL Ratio 2.3 ratio [facility] Lipid Interpretation See Note [facility] Comment: Lipid management should be guided by a patient? s ASCVD risk, goals and preferences. ACC/AHA Guidelines recommend high intensity statin if clinical ASCVD or LDL greater than or equal to 190 mg/dL. http://[employer] Platformurl.com/YXJ-JTU-Kkyozgwhq Adults aged 40-75 with LDL 70-189 mg/dL should have their 10 year ASCVD risk estimated with the ACC/AHA ASCVD risk construction coordinator http://tools.acc.org/FVOTL-Psoe-Wijbtvomp/ Statin should be discussed if risk greater [...] Agency Comment Spec In Lab Heidi South APRN CHEMISTRY ORDERA BLES [facility] [place] [address] * Hemoglobin A1c (09/26/2020 12:20 PM EST) Hemoglobin A1c 4.9 4.3 - 5.6 % [facility] Comment: Reference Range: 4.3 - [...] Mellitus, Diabetes Care 2013; 36: Suppl. 1, S67-83 Estimated Average Glucose 93 mg/dL [facility] Comment: eAG equivalents for HbA1c [...] into estimated average glucose values. ??Diabetes Care 2008:31(8):5647-4312. Blood specimen (specimen) 09/26/2020 12:20 PM EST 09/26/2020 12:41 PM EST Narrative Resulting Agency Comment Spec In Lab Heidi South APRN CHEMISTRY ORDERA BLES Performing Organization Address [facility] Co de Phone Number [facility] [place] [address] * Vitamin D, 25-Hydroxy (09/26/2020 12:20 PM EST) Vitamin D Total 25 OH 26 21 - 100 ng/mL [facility] Vit D Interp Insufficient [facility] Blood specimen (specimen) 09/26/2020 12:20 PM EST 09/26/2020 12:41 PM EST Narrative Resulting Agency Comment Spec In Lab Heidi South APRN CHEMISTRY ORDERA BLES Performing Organization Address [facility] Co de Phone Number [facility] [place] [address] * Vitamin B12 (09/26/2020 12:20 PM EST) Vitamin B12 327 232 - 1,245 pg/mL [facility] Blood specimen (specimen) 09/26/2020 12:20 PM EST 09/26/2020 12:41 PM EST Narrative Resulting Agency Comment Spec In Lab Heidi South APRN CHEMISTRY ORDERA BLES Performing Organization Address [facility]/ZIP Co de Phone Number [facility] [place] [address] * Vitamin B1, whole blood (09/26/2020 12:20 PM EST) Vit B1 Lvl Wb (DECEMBER) 156 70 - 180 nmol/L [facility] Comment: ADDITIONAL INFORMATION This test was developed and its performance characteristics determined by [facility] in a manner consistent with CLIA requirements. This test has not been cleared or approved by the U.S. Food and Drug Administration. Test Performed by: [facility] [address] [place] [address] Interrelated Special Education Teacher: Esvin Rodriguez M.D. Ph.D.; CLIA# [id number] Blood specimen (specimen) 09/26/2020 12:20 PM EST 09/26/2020 1:24 PM EST Narrative Resulting Agency Comment Spec In Lab Heidi South APRN LAB SEND OUT ORD ERABLES Performing Organization Address [facility] Co de Phone Number [facility] [place] [address] * PTH (09/26/2020 12:20 PM EST) Parathyroid Hormone 45 15 - 65 pg/mL [facility] Blood specimen (specimen) 09/26/2020 12:20 PM EST 09/26/2020 12:41 PM EST Narrative Resulting Agency Comment Spec In Lab Heidi South APRN CHEMISTRY ORDERA BLES Performing Organization Address [facility]/ZIP Co de Phone Number [facility] [place] [address] * Iron and TIBC (09/26/2020 12:20 PM EST) Iron 98 30 - 150 mcg/dL [facility] TIBC 349 250 - 450 mcg/dL [facility] Iron Saturation 28 20 - 50 % [facility] Blood specimen (specimen) 09/26/2020 12:20 PM EST 09/26/2020 12:41 PM EST Narrative Resulting Agency Comment Spec In Lab Heidi South APRN CHEMISTRY ORDERA BLES [facility] [place] [address] * Hemogram (09/26/2020 12:20 PM EST) White Blood Cell 7.4 4.0 - 9.5 x10(3)/[facility] Red Blood Cell 4.58 4.00 - 5.21 x10(6)/[facility] Hemoglobin 12.9 11.7 - 15.5 gm/dL [facility] Hematocrit 39.5 35.7 - 45.8 % [facility] Mean Cell Volume 86.2 82.6 - 94.4 fL [facility] Mean Cell Hemoglobin 28.2 27.1 - 32.0 pg [facility] Mean Cell Hemoglobin Concentration 32.7 31.7 - 35.0 gm/dL [facility] Platelet 225 145 - 357 x10(3)/[facility] RDW Standard Deviation 40.5 37.0 - 46.0 fL [facility] RDW coefficient of variation 12.9 11.5 - 14.1 % [facility] Mean Platelet Volume 10.7 7.6 - 12.9 fL [facility] NRBC% auto 0.0 % [facility] NRBC Absolute 0.000 0.000 - 0.000 x10(3)/mcL [facility] Blood specimen (specimen) 09/26/2020 12:20 PM EST 09/26/2020 12:41 PM EST Narrative Resulting Agency Comment Spec In Lab Heidi South APRN HEMATOLOGY ORDER DOE Performing Organization Address City/[facility]/ZIP Co de Phone Number [facility] [place] [address] * Folate, serum (09/26/2020 12:20 PM EST) [facility] Folate 10.1 4.8 - 24.2 ng/mL [facility] Blood specimen (specimen) 09/26/2020 12:20 PM EST 09/26/2020 12:41 PM EST Narrative Resulting Agency Comment Spec In Lab Heidi South APRN CHEMISTRY ORDERA BLES Performing Organization Address [facility] Co de Phone Number [facility] [place] [address] * Ferritin (09/26/2020 12:20 PM EST) [facility] Ferritin 24 15 - 150 ng/mL [facility] Comment: Pediatric reference ranges not verified at [facility], interpret with caution. Reference ranges for females greater than 50 years of age approach values for men, i.e., 30-400 ng/mL. Blood specimen (specimen) 09/26/2020 12:20 PM EST 09/26/2020 12:41 PM EST Narrative Resulting Agency Comment Spec In Lab Heidi South APRN CHEMISTRY ORDERA BLES Performing Organization Address [facility]/ZIP Co de Phone Number [facility] [place] [address] * (ABNORMAL) Comprehensive metabolic panel (non-fasting) (09/26/2020 12:20 PM EST) [facility] Glucose 68 65 - 199 mg/dL [facility] Comment:Diabetes: >=200 mg/d L plus symptoms Blood Urea Nitrogen 11 8 - 18 mg/dL [facility] Creatinine 0.65(L) 0.70 - 1.20 mg/dL [facility] Sodium 141 135 - 145 mmol/L [facility] Potassium 4.1 3.5 - 5.0 mmol/L [facility] Comment: Please note: ??Patients with WBC >100,000 may have falsely elevated Potassium levels. ??For accurate Potassium quantification in these patients send serum separator tube (gold top) for subsequent determinations. ??Contact the Clinical Chemistry Laboratory if there are any questions. Chloride 107 98 - 107 mmol/L [facility] Carbon Dioxide 27 22 - 31 mmol/L [facility] Anion Gap 7 5 - 15 mmol/L [facility] Calcium 9.5 8.5 - 10.5 mg/dL [facility] Protein, Total 6.9 6.1 - 8.0 gm/dL [facility] Albumin 4.4 3.2 - 5.2 gm/dL [facility] Aspartate Aminotransferase 11 0 - 30 unit/L [facility] Alanine Aminotransferase 10 0 - 30 unit/L [facility] Alkaline Phosphatase 71 35 - 105 unit/L [facility] Bilirubin, Total 0.2 0.2 - 1.3 mg/dL [facility] Est Glomerular Filtration Rate 115 >=60 mL/min/1. 73 m?? [facility] Comment: This patient? s estimated glomerular filtration rate (eGFR) is between 115 mL/min/1.73 m2 (patients with less muscle mass) and 133 mL/min/1.73 m2 (patients with more muscle mass) as determined by the CKD-EPI equation. Assessment of eGFR is not appropriate when creatinine concentrations are rapidly changing. For clinical decisions where creatinine clearance will affect therapy, a 24-hour urine creatinine clearance may be advised. Assignment of CKD stage 1 ? 5 for patients with an eGFR near the transition point between stages may be based on clinical assessment of muscle mass and symptoms in addition to eGFR. Blood specimen (specimen) 09/26/2020 12:20 PM EST 09/26/2020 12:41 PM EST Narrative Resulting Agency Comment Spec In Lab Heidi Hill [place] [employer]IOR [employer]OWER PLANT OPERATOR CHEMISTRY ORDERA BLES Performing Organization Address City/State/[facility] Co de Phone Number [facility] [place] [address] documented in this encounter Visit Diagnoses Diagnosis Bariatric surgery status: 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 Bariatric surgery status Iron deficiency Iron deficiency anemia, unspecified Post-resection malabsorption Other and unspecified postsurgical nonabsorption Low vitamin B12 level Other B-complex deficiencies documented in this encounter Care Teams Milk Treater Relationship Specialty Start Date End Date Kezia Aguirre MD [address] [place] [address] PCP - General Family Medicine 12/24/16 12/30/22 documented as of this encounter
--- OUTSIDE RECORDS SUMMARY | 2024-05-25 14:51 | XMS_ITS | Encounter Summary ---
Author Organization [facility] Address [facility] [place] [address] Care Team Providers Care Technician Helper Instrument Name Role Phone Kezia Aguirre MD Primary Care Provider [phone] Encounter Details Date Type Department Care Team (Late st Contact Info) Description 04/14/2020 10:13 AM EDT Anesthesia Event [place] [address] Debbie Leonardo MD [facility] [place] [address] [place] MD [facility] [place] [address] Anesthesia Record Procedure Summary Procedure Name Responsible Anesthesiologist Anesthesia Start Time Anesthesia Stop Time EGD, UPPER GI ENDOSCOPY (WRVU 2.09) Debbie Leonardo MD 04/14/20 1013 04/14/20 1037 Events Date Time Event Comment 04/14/2020 0812 1013 AN Verify 1013 Start 1013 An Start Data 1017 An Induction 1017 Anesthesia Ready 1022 Procedure Start 1025 Procedure Stop 1031 an stop data 1036 Recovery or ICU Handoff Corine ent care was transferred to the destination unit staff after review of the patient's medical history, current anesthetic/surgical status and plan, according to the Provider Handoff Checklist. 1037 Stop Meds Name Total Midazolam 2 mg Propofol 80 mg Propofol INF 44.79 mg lactated ringers infusion 50 mL * Agents Name O2 Air N2O Sevoflurane (et) O2 Auxiliary Flowmeter 1 * Blood No blood administrations on file. Lines, Drains, and Airways Type Details Placement Removal (RETIRED) Peripheral IV Line - Single Lumen 04/14/20; 0801; metacarpal vein (top of hand), left; [id number] catheter system; 22 gauge; JUVE Bronson ; distraction, intradermal injection, tolerated well, appears comfortable; 04/14/20; 1109 04/14/20 0801 by Cheli Ruff RN 04/14/20 1109 by Maria G Zazueta RN documented in [...] OR Notes * Anesthesia Postprocedure Evaluation - [place] MD - 04/14/2020 10:37 AM EDT Department of Anesthesiology Post-procedure Note Patient: Tiffanie Monreal Procedure Summary Date: 04/14/20 Room / Location: [address] MAIN OR Anesthesia Start: 1013 Anesthesia Stop: 1037 Procedure: EGD, UPPER GI ENDOSCOPY (N/A ) Diagnosis: (OBESITY) Surgeon: Jerica Dubose MD Responsible Provider: Debbie Leonardo MD Anesthesia Type: general ASA Status: 2 All Anesthesia Providers: Anesthesiologist: Debbie Leonardo MD Trans Router: [place] MD Vitals Value Taken Time BP 118/70 04/14/20 1034 Temp 36.4 ??C (97.5 ??F) 04/14/20 1034 Pulse 60 04/14/20 1034 Resp 16 04/14/20 1034 SpO2 100 % 04/14/20 1035 Pain Level 0 04/14/20 1034 Vitals shown include unvalidated device data. Patient Location: PACU/[facility] Level of Consciousness: Awake and Alert Pain Management: Satisfactory Analgesia PONV: None Cardiovascular Status: At Baseline and Hemodynamically Stable Respiratory Status: Stable Respiratory Status and Supplemental O2 (NC or FM) Postoperative Fluid Status: Intravascular EUvolemia Possible Anesthetic Complications: NONE apparent at time of evaluation Final Primary Anesthesia Type: MAC (The anesthetic type performed was the same as planned.) Comments: Daniel [place] MD * Anesthesia Preprocedure Evaluation - Daniel [place] MD - 04/13/2020 5:48 PM EDT Pre-Anesthesia Evaluation for: Tiffanie orozco 35 y.o. female. Procedure(s): EGD, UPPER GI ENDOSCOPY Patient Active Problem List Diagnosis ??? Bariatric surgery status: S/P RNY gastric [...] choice. [facility] follow up at [facility] on 10/11/14: same as PSG ??? Insomnia ??? Major depressive disorder History of psychiatric admission 09/2013 for SI at [facility]. Not currently taking antidepressants at of [...] 29.4) performed by Jerica Dubose MD at [facility] MAIN OR ??? PRO UPPER GI ENDOSCOPY, DIAGNOSTIC N/A 09/30/2018 ENDOSCOPY, UPPER GI, DIAGNOSTIC, WITH OR WITHOUT SPECIMENS [facility] ??? TUBAL LIGATION Bilateral 2007 Social History Tobacco Use ??? Smoking status: Former Smoker Packs/day: 0.50 Years: 2.00 Pack years: 1.00 Types: Cigarettes Quit date: 03/27/2008 Years since quittin.0 ??? Smokeless tobacco: Never Used Substance Use Topics ??? Alcohol use: Yes Types: 1 Glasses of wine, 1 Cans of beer per week Social History Substance and Sexual Activity Drug Use No Allergies Allergen Reactions ??? Cough Syrup [Guaifenesin] Anaphylaxis ??? Spider Venom Other (See Comments) Ask patient. Medications: MAR and/or home medications have been reviewed. Physical Exam: No data found. There is no height or weight on file to calculate BMI. Airway Assessment: Mallampati: II TM distance: >3 FB Neck ROM: full Cardiovascular Assessment: Rhythm: regular Rate: normal cardiovascular exam normal Pulmonary Assessment: breath sounds clear to auscultation pulmonary exam normal Dental Assessment: - normal exam Misc Assessment: Anesthesia Plan: ASA 2 general, with a(n) intravenous induction Seen by Dr. Debbie Leonardo Tiffanie Mon[place] is a 35 y.o. female (BMI 35) with a hx significant for depression, obesity s/p RnY 2019, presenting for EGD with . PMHx: above. Past diagnosis of sleep apnea when more obese. NPO adequate. Activity prior to surgery: METS>4.* Meds: acetaminophen 500 mg Capsule, Take by mouth 2 times daily., Disp: , Rfl: Allergies -- Cough Syrup (Guaifenesin) -- Anaphylaxis -- Spider Venom -- Other (See Comments) -- Ask patient. Anesthesia Hx: Past airway: easy mask, G1v with Mac 3 Pt denies past complications from anesthesia and any family hx of complications with anesthesia. Labs: CBC and CMP nml Pertinent Imaging: NA Plan is for Mac with backup GA with ETT, standard ASA monitors, and adequate IV access. Daniel [place] MD 04/13/2020 Region - Other Informed Consent: Anesthetic plan and risks discussed with patient. Plan discussed with attending and resident. PAT Clinic Note documented in this encounter Plan of Treatment Upcoming Encounters Date Type Department Care Team (Late st Contact Info) Description 06/02/2024 8:00 AM EDT Office [place] [address] Julienne Lacey APRN [facility] [place] [address] 07/24/2024 1:30 PM EST Office Visit Weight and Wellness at [facility] [place] [id number] Jenni Brennan MD [facility] DR J[facility] [place] [address] documented as of this encounter Visit Diagnoses [...] 8:04 AM EDT 1,000 mLs 100 mL/hr midazolam (PF) (VERSED) multi-dose injection PRN, Starting on Sarah 04/14/20 at 1013, Until Sarah 04/14/20 at 1037, Anesthesia Intra-op, Routine Given 04/14/2020 10:13 AM EDT 2 mg propofol (DIPRIVAN) 10 mg/mL bolus injection (Anesthesia) PRN, Starting on Sarah 04/14/20 at 1019, Until Sarah 04/14/20 at 1037, Anesthesia Intra-op Given 04/14/2020 10:22 AM EDT 50 mg Given 04/14/2020 10:19 AM EDT 30 mg propofol (DIPRIVAN) infusion CONTINUOUS PRN, Starting on Sarah 04/14/20 at 1017, Until Sarah 04/14/20 at 1037, Anesthesia Intra-op, Routine Rate/Dose Change 04/14/2020 10:22 AM EDT 75 mcg/kg/min 42.4 mL/hr New Bag 04/14/2020 10:17 AM EDT 50 mcg/kg/min 28.3 mL/h r documented in this encounter Care Teams Technician Helper Instrument Relationship Specialty Start Date End Date Kezia Aguirre MD [address] [place] [address] PCP - General Family Medicine 12/24/16 12/30/22 documented as of this encounter
--- OUTSIDE RECORDS SUMMARY | 2024-05-25 14:51 | XMS_ITS | Encounter Summary ---
Author Organization [facility] [place] [address] Care Team Providers Care Structural Iron Worker Name Role Phone Kezia Aguirre MD Primary Care Provider [phone] Encounter Details Date Type Department Care Team (Late st Contact Info) Description 09/14/2020 Orders [place] [phone] Heidi South [facility] [place] [address] Bariatric surgery status: S/P RNY gastric bypass [...] 8:00 AM EDT Office [place] [phone] Julienne Lacey [facility] [place] [address] 07/24/2024 1:30 PM EST Office Visit [place] [address] Jenni Brennan MD [facility] DR J[facility] [place] [address] documented as of this encounter Results * Lipid Panel (Reflex Direct LDL) (09/26/2020 12:20 PM EST) [facility] Signature Cholesterol, Total 139 mg/dL [facility] Comment: Lower Risk: <200 mg/dL Average Risk: 200-239 mg/dL Higher Risk: >pi=603 mg/dL Triglyceride 59 mg/dL [facility] Comment: Average Risk/Lower Risk: <150 mg/dL Borderline High Risk: 150-199 mg/dL High Risk: 200-499 mg/dL Very High Risk: >nf=456 mg/dL HDL Cholesterol 60 mg/dL [facility] Comment: Males: ?? Higher Risk: <40 mg/dL Females: ?? HIgher Risk: <50 mg/dL LDL Cholesterol 67 mg/dL [facility] Comment: Lowest Risk: <100 mg/dL Lower Risk: 100-129 mg/dL Borderline High Risk: 130-159 mg/dL High Risk: 160-189 mg/dL Very High Risk: >cp=942 mg/dL Cholesterol/HDL Ratio 2.3 ratio [facility] Lipid Interpretation See Note [facility] Comment: Lipid management should be guided by a patient? s ASCVD risk, goals and preferences. ACC/AHA Guidelines recommend high intensity statin if clinical ASCVD or LDL greater than or equal to 190 mg/dL. http://tinyurl.com/QJC-UGN-Ymsgihuzh Adults aged 40-75 with LDL 70-189 mg/dL should have their 10 year ASCVD risk estimated with the ACC/AHA ASCVD risk district claims manager http://tools.acc.org/JLYNZ-Rstf-Whtuffdsl/ Statin should be discussed if risk greater [...] In Lab Heidi South APRN CHEMISTRY ORDERA KALEIGHS [facility] [place] [address] * Hemoglobin A1c (09/26/2020 12:20 PM EST) Hemoglobin A1c 4.9 4.3 - 5.6 % [facility] Comment: Reference Range: 4.3 [...] Mellitus, Diabetes Care 2013; 36: Suppl. 1, S67-74 Estimated Average Glucose 93 mg/dL [facility] Comment: eAG equivalents for [...] into estimated average glucose values. ??Diabetes Care 2008:31(8):7664-9997. Blood specimen (specimen) 09/26/2020 12:20 PM EST 09/26/2020 12:41 PM EST Narrative Resulting Agency Comment Spec In Lab Heidi South APRN CHEMISTRY ORDERA BLES Performing Organization Address [facility] de Phone Number [facility] [place] [address] * Vitamin D, 25-Hydroxy (09/26/2020 12:20 PM EST) Vitamin D Total 25 OH 26 21 - 100 ng/mL [facility] Vit D Interp Insufficient [facility] Blood specimen (specimen) 09/26/2020 12:20 PM EST 09/26/2020 12:41 PM EST Narrative Resulting Agency Comment Spec In Lab Heidi South APRN CHEMISTRY ORDERA BLES Performing Organization Address [facility] de Phone Number [facility] [place] [address] * Vitamin B12 (09/26/2020 12:20 PM EST) Vitamin B12 327 232 - 1,245 pg/mL [facility] Blood specimen (specimen) 09/26/2020 12:20 PM EST 09/26/2020 12:41 PM EST Narrative Resulting Agency Comment Spec In Lab Heidi South APRN CHEMISTRY ORDERA BLES Performing Organization Address [facility]/ZIP Co de Phone Number [facility] [place] [address] * Vitamin B1, whole blood (09/26/2020 12:20 PM EST) Pathologist [facility] Vit B1 Lvl Wb (DECEMBER) 156 70 - 180 nmol/L [facility] Comment: ADDITIONAL INFORMATION This test was developed and its performance characteristics determined by [facility] in a manner consistent with CLIA requirements. This test has not been cleared or approved by the U.S. Food and Drug Administration. Test Performed by: [facility] [place] [address] Holter Scanning Technician: Esvin Rodriguez M.D. Ph.D.; CLIA# [id number] Blood specimen (specimen) 09/26/2020 12:20 PM EST 09/26/2020 1:24 PM EST Narrative Resulting Agency Comment Spec In Lab Heidi South APRN LAB SEND OUT ORD ERABLES Performing Organization Address City/[facility]/ZIP Co de Phone Number [facility] [place] [address] * PTH (09/26/2020 12:20 PM EST) [facility] Parathyroid Hormone 45 15 - 65 pg/mL [facility] Blood specimen (specimen) 09/26/2020 12:20 PM EST 09/26/2020 12:41 PM EST Narrative Resulting Agency Comment Spec In Lab Heidi South APRN CHEMISTRY ORDERA BLES Performing Organization Address City/[facility]/ZIP Co de Phone Number [facility] [place] [address] * Iron and TIBC (09/26/2020 12:20 PM EST) [facility] Iron 98 30 - 150 mcg/dL [facility] TIBC 349 250 - 450 mcg/dL [facility] Iron Saturation 28 20 - 50 % [facility] Blood specimen (specimen) 09/26/2020 12:20 PM EST 09/26/2020 12:41 PM EST Narrative Resulting Agency Comment Spec In Lab Heidi South [employer] CHEMISTRY ORDERA BLES Performing Organization Address City/State/[facility] Co de Phone Number [facility] [place] [address] * Hemogram (09/26/2020 12:20 PM EST) White Blood Cell 7.4 4.0 - 9.5 x10(3)/[facility] Red Blood Cell 4.58 4.00 - 5.21 x10(6)/[facility] Hemoglobin 12.9 11.7 - 15.5 gm/dL [facility] Hematocrit 39.5 35.7 - 45.8 % [facility] Mean Cell Volume 86.2 82.6 - 94.4 fL [facility] Mean Cell Hemoglobin 28.2 27.1 - 32.0 pg [facility] Mean Cell Hemoglobin Concentration 32.7 31.7 - 35.0 gm/dL [facility] Platelet 225 145 - 357 x10(3)/[facility] RDW Standard Deviation 40.5 37.0 - 46.0 [facility] RDW coefficient of variation 12.9 11.5 - 14.1 % [facility] Mean Platelet Volume 10.7 7.6 - 12.9 fL [facility] NRBC% auto 0.0 % [facility] NRBC Absolute 0.000 0.000 - 0.000 x10(3)/[facility] Blood specimen (specimen) 09/26/2020 12:20 PM EST 09/26/2020 12:41 PM EST Narrative Resulting Agency Comment Spec In Lab Heidi South APRN HEMATOLOGY ORDER DOE Performing Organization Address City/[facility]/ZIP Co de Phone Number [facility] [place] [address] * Folate, serum (09/26/2020 12:20 PM EST) [facility] Folate 10.1 4.8 - 24.2 ng/mL [facility] Blood specimen (specimen) 09/26/2020 12:20 PM EST 09/26/2020 12:41 PM EST Narrative Resulting Agency Comment Spec In Lab Heidi South APRN CHEMISTRY ORDERA BLES Performing Organization Address [facility] Co de Phone Number [facility] [place] [address] * Ferritin (09/26/2020 12:20 PM EST) [facility] Ferritin 24 15 - 150 ng/mL [facility] Comment: Pediatric reference ranges not verified at [facility], interpret with caution. Reference ranges for females greater than 50 years of age approach values for men, i.e., 30-400 ng/mL. Blood specimen (specimen) 09/26/2020 12:20 PM EST 09/26/2020 12:41 PM EST Narrative Resulting Agency Comment Spec In Lab Heidi South APRN CHEMISTRY ORDERA BLES Performing Organization Address [facility] Co de Phone Number [facility] [place] [address] * (ABNORMAL) Comprehensive metabolic panel (non-fasting) (09/26/2020 12:20 PM EST) [facility] Glucose 68 65 - 199 mg/dL [facility] Comment:Diabetes: >=200 mg/d L plus symptoms Blood Urea Nitrogen 11 8 - 18 mg/dL [facility] Creatinine 0.65(L) 0.70 - 1.20 mg/dL [facility] Sodium 141 135 - 145 mmol/L [facility] Potassium 4.1 3.5 - 5.0 mmol/L [facility] Comment: Please note: ??Patients with WBC >100,000 may have falsely elevated Potassium levels. ??For accurate Potassium quantification in these patients send serum separator tube (gold top) for subsequent determinations. ??Contact the Clinical Chemistry Laboratory if there are any questions. Chloride 107 98 - 107 mmol/L [facility] Carbon Dioxide 27 22 - 31 mmol/L [facility] Anion Gap 7 5 - 15 mmol/L [facility] Calcium 9.5 8.5 - 10.5 mg/dL [facility] Protein, Total 6.9 6.1 - 8.0 gm/dL [facility] Albumin 4.4 3.2 - 5.2 gm/dL [facility] Aspartate Aminotransferase 11 0 - 30 unit/L [facility] Alanine Aminotransferase 10 0 - 30 unit/L [facility] Alkaline Phosphatase 71 35 - 105 unit/L [facility] Bilirubin, Total 0.2 0.2 - 1.3 mg/dL [facility] Est Glomerular Filtration Rate 115 >=60 mL/min/1. 73 m?? [facility] Comment: This patient? s estimated [...] Agency Comment Spec In Lab Heidi South [employer] [place] [address] documented in this encounter Visit Diagnoses Diagnosis Bariatric surgery status: 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 Bariatric surgery status Iron deficiency Iron deficiency anemia, unspecified Post-resection malabsorption Other and unspecified postsurgical nonabsorption Low vitamin B12 level Other B-complex deficiencies documented in this encounter Care Teams Structural Iron Worker Relationship Specialty Start Date End Date Kezia Aguirre MD [address] [place] [address] PCP - General Family Medicine 12/24/16 12/30/22 documented as of this encounter
--- OUTSIDE RECORDS SUMMARY | 2024-05-25 14:52 | XMS_ITS | Encounter Summary ---
Author Organization [facility] [place] [address] Care Team Providers Care Smoking Tobacco Packing Machine Hand Name Role Phone Saumya Felipe APRN Primary Care Provider [phone] Encounter Details Date Type Department Care Team (Late st Contact Info) Description 08/25/2007 Orders Only Obstetrics [place] [address] Rebecca Aguilera MD [facility] DR OBSTETRICS [place] [address] Social History Tobacco Use Types Packs/Day Years [...] 8:00 AM EDT Office Visit Gastroenterology at [place] [phone] Julienne Lacey APRN [facility] [place] [address] 07/24/2024 1:30 PM EST Office Visit Weight and Wellness at [place] [phone] Jenni Brennan MD [facility] DR [facility] [place] [address] documented as of this encounter Procedures Procedure Name Priority Date/Time Associated Diagnosis Comments SURGICAL PATHOLOGY REPORT Routine 08/25/2007 1:04 PM EST documented in this encounter Results * Surgical Pathology Report (08/25/2007 1:04 PM EST) Surgical Pathology Report [id number] ? Location: ; 08; A The signing pathologist has (i) examined the relevant preparation(s) for the specimen(s) and (ii) rendered or confirmed the diagnosis(es). . ?Pathology Surgical Pathology Final Report Clinical Information Specimen Submitted: R & L fallopian tube A - Rt. fallopian tube B - Lt. fallopian tube Clinical history: (not provided) Clinical Diagnosis: (not provided) Gross Description A - Labeled/Fixativ e: Right, formalin. Qty/Size/Weight : ?One, 1.5 x 1.0 x 0.5 cm. Tissue Description: ?? Martinez-pink tubular portion of tissue. Sections/Proces sing: ??(R1) B - Labeled/Fixativ e: Left, formalin. Qty/Size/Weight : ?One, 1.5 x 1.0 x 0.5 cm. Tissue Description: ?? Martinez-pink tubular portion of tissue. Sections/Proces sing: ??(R1) aje/SNS Microscopic Description Slides reviewed, microscopic description not recorded. Diagnosis A - Segment of right fallopian tube: ?Completely transected fallopian tube. B - Segment of left fallopian tube: ?Completely transected fallopian tube. CR-0 08/26/07 JLG 08/26/07 Verified by: ? Juan Livingston MD ?Pathologist ?(Electronic Signature) The attending pathologist whose signature appears on this report has reviewed all diagnostic slides and has edited the gross and/or microscopic portion of the report in rendering the final pathologic diagnosis. CELINA OLEA 08/25/2007 1:04 PM EST Rebecca Aguilera MD PATHOLOGY/CYTOLOGY Dorinda MILLS [facility] documented in this encounter Visit Diagnoses Not on filedocumented in this encounter Care Teams Smoking Tobacco Packing Machine Hand Relationship Specialty Start Date End Date Saumya Felipe APRN [address] [place] [address] PCP - General Family Medicine 12/31/22 documented as of this encounter
--- OUTSIDE RECORDS SUMMARY | 2024-05-25 14:52 | XMS_ITS | Encounter Summary ---
Author Organization [facility] [place] [address] Care Team Providers Care Route Sales Representative Name Role Phone Saumya Felipe APRN Primary Care Provider [phone] Encounter Details Date Type Department Care Team (Late st Contact Info) Description 08/25/2007 Orders Only Obstetrics [place] [phone] Rebecca Aguilera MD [facility] DR OBSTETRICS [place] [address] Social History Tobacco Use Types Packs/Day Years [...] 8:00 AM EDT Office Visit Gastroenterology at [place] [phone] Julienne Lacey APRN [facility] [place] [address] 07/24/2024 1:30 PM EST Office Visit Weight and Wellness at [place] [phone] Jenni Brennan MD [facility] DR [facility] [place] [address] documented as of this encounter Procedures Procedure Name Priority Date/Time Associated Diagnosis Comments SURGICAL PATHOLOGY REPORT Routine 08/25/2007 1:39 PM EST documented in this encounter Results * Surgical Pathology Report (08/25/2007 1:39 PM EST) Surgical Pathology Report [id number] ? Location: BP; BP08; A The signing pathologist has (i) examined the relevant preparation(s) for the specimen(s) and (ii) rendered or confirmed the diagnosis(es). . ?Pathology Surgical Pathology Final Report Clinical Information Specimen Submitted: A - Placenta Clinical History: Term repeat C/S Gross Description Labeled/Fixative: ? Labeled with the patient's name and medical record ?number, fresh. Qty/Size/Weight: ?21.0 x 20.0 x 3.5 cm, 614 g. Tissue Description: ?? Michael. ?? Membranes: ? Marginal insertion, clear, pink, and translucent. ?? Cord: ?Attached, 26.0 x 1.5 cm; three vessels; eccentric ?insertion. ?? Surface: ? Lansford-sanders, glistening with subchorionic granularity. ?No mass lesions are seen. ?? Maternal Surface: ??Consists of intact cotyledons. ?? Parenchyma: ?The specimen is serially sectioned at 0.5-cm to ?1.0-cm intervals. ??Sections show dark red parenchyma ?without lesion, mass, or infarct. Sections/Processing : ??Sections are submitted as follows: ??(1) cord and ?membranes; (2) surface; (3) maternal surface. ?(R3) ??aje/LJT Microscopic Description Slides reviewed, microscopic description not recorded. Diagnosis Third trimester placenta, cord and membranes: Negative for chorioamnionitis or funisitis. CR-0 08/28/07 KO 08/28/07 Verified by: ? Vanessa Hall MD ?Pathologist ?(Electronic Signature) The attending pathologist whose signature appears on this report has reviewed all diagnostic slides and has edited the gross and/or microscopic portion of the report in rendering the final pathologic diagnosis. CELINA OLEA 08/25/2007 1:39 PM EST Rebecca Aguilera MD PATHOLOGY/CYTOLOGY O RDERABLES Performing Organization Address City/State/[facility] Co de Phone Number CELINA OLEA documented in this encounter Visit Diagnoses Not on filedocumented in this encounter Care Teams Route Sales Representative Relationship Specialty Start Date End Date Saumya Felipe APRN [address] [place] [address] PCP - General Family Medicine 12/31/22 documented as of this encounter
--- OUTSIDE RECORDS SUMMARY | 2024-05-25 14:52 | XMS_ITS | Encounter Summary ---
Author Organization [facility] Address [facility] [place] [address] Care Team Providers Care Cardroom Supervisor Name Role Phone Jhonatan Valdivia MD Primary Care Provider [phone] Reason for Visit * Reason Comments Advice Only BBR Encounter Details Date Type Department Care Team (Late st Contact Info) Description 08/22/2011 10:00 AM EST Office [place] [phone] Rebecca Motley MD [facility] [place] [address] Macromastia (Primary Dx) Discharge Disposition: Home Social History Tobacco Use [...] Sign Reading Time Taken Comments Blood Pressure 120/80 08/22/2011 10:06 AM EST re ported Pulse - - Temperature - - Respiratory Rate - - Oxygen Saturation - - Inhaled Oxygen Concentration - - Weight 134.3 kg (296 lb) 08/22/2011 10:06 AM EST Height 165.1 cm (5' 5) 08/22/2011 10:06 AM EST Body Mass Index 49.26 08/22/2011 10:06 AM EST documented in this encounter Patient Instructions * Patient Instructions* KuStephanie blackmon RN - 08/22/2011 11:27 AM EST Welcome to Identyx, your secure online access to your electronic medical record at [facility]. Using Identyx you will be able to send messages to your providers, view your test results, renew prescriptions, schedule appointments, and much more. Follow these instructions to enter your personal Identyx account for the first time: 1. Start your internet browser. Go to [email or web address] and click on the Identyx link. 2. Click SIGN UP NOW to go to the NEW MEMBER SIGN UP page. 3. Enter your Identyx Access Code exactly as it appears below. (You will not need this access code after you have completed the sign-up process.) ?? Your Identyx Access Code: [email or web address] ?? Expires: 10/06/11 11:27 AM ?? IMPORTANT: This Access Code will on the above mentioned date. If you do not sign up before this date, you will need to request a new Access Code number. 4. Enter your Date of (mm/dd/yyyy) and zip code click SUBMIT to go to the next page. 5. Create a Identyx identification (ID). This will be your Identyx login ID and cannot be changed, so think of one that is secure and easy to remember. 6. Create a password which you can change at any time. Your password must contain six (6) letters and two (2) numbers. 7. Enter your Password Reset Question and Answer. This will be used if you forget your password. 8. Enter your e-mail address. This is used to let you know when new information is available in Identyx. 9. Click SIGN UP to complete the process. You can now view your electronic medical record. If you have any questions about Identyx or your Access Code, please call for [place], for [place] or for [place]. If you need technical support, please e-mail . Remember, myD-H is NOT for urgent needs! Always dial 911 for medical emergencies. At this visit, you were given a folder containing information on: 1. Trifold pamphlet on breast reduction from the [place] [employer] 2. Brochure: Breast Reduction instructions for before and after surgery from [facility] 3. White page: Section of Plastic Surgery Narcotic Use & Postoperative Pain document 4. White page: Drain Care 5. White page: recommended Web Sites 6. White page: Plastic Surgery Scar Massage Techniques 7. Paper printout: nurse powerpoint presentation 8. Two packets of Hibiclens soap A few weeks prior to your surgery, please review the pink pre - post op breast reduction instruction booklet you were given at today's appointment. Remember to do the preop wash with Hibiclens the night before and morning of surgery. If you have any questions or concerns please call our Plastic Surgery Nurse line @ [phone]. We monitor this line Saturday - Saturday 8 to 5. documented in this encounter Progress Notes * Rebecca Motley MD - 08/22/2011 11:26 AM EST PLASTIC SURGERY CONSULTATION Rebecca Motley PCP: JHONATAN VALDIVIA MD [place] SUPERVISOR: None CC: Macromastia Patient ID: I was asked by JHONATAN VALDIVIA MD to evaluate Tiffanie Monreal, a 26 y.o. female, for symptomatic macromastia. She is alone for today's visit. She has completed an intake questionnaire and intake health history. I have reviewed both of these with her and the results are documented in today's encounter. Pertinent findings to emphasize are: Headaches? Most of the time Pain in your breast area? Most of the time Lack of energy? Some of the time Difficulty doing vigorous physical activities (e.g. running or exercising)? All of the time Feeling physically unbalanced? All of the time Shoulder pain? Some of the time Difficulty sleeping because of discomfort in your breast area? All of the time Neck pain? Some of the time Painful gouges or grooves in your shoulders from your bra straps? All of the time Feeling physically uncomfortable? All of the time Rashes under your breasts? All of the time Back pain? All of the time Arm pain? Some of the time Pain, numbness or tingling in your hands because of your breast size? Some of the time CONSERVATIVE THERAPY TREATMENTS Physical therapy was effective at relieving my symptoms. No Relief PHYSICAL THERAPY TREATMENT DURATION How many months did you try this treatment? Less than 3 months CUSTOM SUPPORT TREATMENTS Use of custom support bras relieved my symptoms. No Relief CUSTOM SUPPORT TREATMENT DURATION How many months did you try this treatment? Less than 3 months CHIROPRACTOR TREATMENTS Treatment by a chiropractor relieved my symptoms. Never Tried WEIGHT LOSS TREATMENTS Weight loss relieved my symptoms. Never Tried NON-NARCOTIC TREATMENTS Non-narcotic medications (such as Tylenol, Aspirin, Ibuprofen, Aleve, etc) have relieved my symptoms. Some Relief NON-NARCOTIC TREATMENT DURATION How many months did you try this treatment? More than 6 months NARCOTIC TREATMENTS Narcotic pain relievers (such as Tylenol #3, Percocet, etc) have relieved my symptoms. Some Relief NARCOTIC TREATMENT DURATION How many months did you try this treatment? More than 6 months OTHER TREATMENTS Other Treatments have relieved my symptoms. Never Tried MEDICATIONS TREATMENTS Over the counter or prescription medication has relieved the rashes under my breasts. No Relief Objective: Physical Exam: Bra size: 48F Goal cup size: C or D Vitals signs reviewed Body mass index is 49.26 kg/(m^2). General: On my examination today, she appears to be in good health. Her emotional outlook is positive and she asked appropriate questions throughout the visit. Musculoskeletal: Her back is straight without evidence of kyphosis. BREAST MEASUREMENTS RIGHT LEFT Ptosis 3 3 SN-N (cm) 46 47 IMF-N (cm) 17 18 NAC elevat (cm) 23 22 Masses absent absent Shoulder grooves 1 1 Rash absent absent Axillary rolls 2+ 2+ Surgical Scars absent absent Breast Vol (estimate in cc) 1800 2000 Resection (estimate in gms) 800 900 Assessment and Plan: Tiffanie Monreal is a 26 y.o. female with symptomatic bilateral breast hypertrophy. Bilateral breast reduction is indicated for relief of her breast-related symptoms. The procedure ofbreast reduction was discussed in detail and it was emphasized that I cannot guarantee a specific requested size. She participated in a BRITE informational session that included graphic images of excellent, average and poor results. We reviewed the surgical risks, alternate skin incisions and pedicle versus free nipple graft techniques. We also discussed the option of volume reduction by liposuction alone, which does not alter the nipple-areolar complex position. We reviewed the timing of surgery relative to weight fluctuations and I've advised that surgery is best done at a realistic skilled nursing stable weight. We talked about the outpatient nature of the surgery, drains, postoperative recovery, and time required off work. Wetalked about the impact of this surgery on decreasing breast cancer risk. We specifically discussed the following risks: Liposuction: minimal risks but swelling for several months is to be expected. Disadvantage is that not as much lifting is achieved. We talked about the sometimes need to increase the length of the inframammary fold incision and do a direct excision of tissue if we cannot meet our planned volume of resection. Surgical Risks which are greater with open reduction: bleeding with risk of hematoma (<5%); numbness, which may be temporary or permanent; scarring, including abnormal scarring; infection (5-10%);fat necrosis resulting in a breast mass and possible need for revision. I stressed the likelihood of minor problems with delayed wound healing (~30%) and the rare complication of nipple areolar necrosis. She is also aware that there may be some residual pain after the surgery and that there may possibly be some asymmetry. Vertical or Lollipop Incision: Less scarring on breast, but slightly greater risk for delayed healing and desire for scar revision. (She was informed that her insurer might not cover secondary revisions for scarring or asymmetry.) Santoro or [place] Pattern Incision: More scarring on breast, but lower risk for scar revision. (She was informed that her insurer might not cover secondary revisions for scarring or asymmetry.) Pedicle Technique: volume of reduction may be limited by need to provide an adequate blood supply to the nipple. There is a very small risk of nipple loss. Most women (~60%) will be able to breast-feed. Free Nipple Graft: The grafts will initially have no sensation and once fully healed may not respond to temperature and touch as they do now. She has also a been informed that they may not look entirely normal and may have patchy hypopigmentation. She will not be able to breast feed with this technique. After fully discussing the options, she has opted to pursue a: Bilateral Breast Reduction Santoro Pedicle She would like to proceed with surgery and I will inform JHONATAN VALDIVIA MD and Yovana Trevizo of this plan. I, Yumiko Harp, am acting as scribe only for Dr. Motley and all work documented was performed by Dr. Motley documented in this encounter Miscellaneous Notes * Miscellaneous - Rosendo, Commissary Steward - 09/05/2011 12:12 PM EST documented in this encounter Plan of Treatment Upcoming Encounters Date Type Department Care Team (Late st Contact Info) Description 06/02/2024 8:00 AM EDT Office Visit [place] [address] [facility] [place] [address] 07/24/2024 1:30 PM EST Office Visit Weight [place] [phone] [facility] [address] documented as of this encounter Visit Diagnoses Diagnosis Macromastia- Primary Hypertrophy of breast documented in this encounter Care Teams Cardroom Supervisor Relationship Specialty Start Date End Date Jhonatan Valdivia MD [address] [place] [address] PCP - General 07/04/10 10/28/11 documented as of this encounter
--- OUTSIDE RECORDS SUMMARY | 2024-05-25 14:52 | XMS_ITS | Encounter Summary ---
Author Organization [facility] [place] [address] Care Team Providers Care Anthropology And Archeology Instructor Name Role Phone Kezia Aguirre MD Primary Care Provider [phone] Encounter Details Date Type Department Care Team (Late st Contact Info) Description 09/01/2018 Telephone [place] [phone] Flavia Landon APRN [facility] DR J[facility]ET [facility] [address] Social History Tobacco Use Types Packs/Day Years [...] encounter Miscellaneous Notes * Telephone Encounter - Flavia Landon APRN - 09/01/2018 10:23 AM EST Telephone call to review labs, instructed to start vitamin D 50,000 weekly for 6 months, reviewed with pt. She verbalizes understanding. documented in this encounter Plan of Treatment Upcoming Encounters Date Type Department Care Team (Late st Contact Info) Description 06/02/2024 8:00 AM EDT Office [place] [address] Julienne Lacey APRN [facility] [place] [address] 07/24/2024 1:30 PM EST Office Visit [place] [address] Jenni Brennan MD [facility] DR [facility] [place] [address] documented as of this encounter Visit Diagnoses Diagnosis Vitamin D deficiency Unspecified vitamin D deficiency documented in this encounter Care Teams Anthropology And Archeology Instructor Relationship Specialty Start Date End Date Kezia Aguirre MD [address] [place] [address] PCP - General Family Medicine 12/24/16 12/30/22 documented as of this encounter
--- OUTSIDE RECORDS SUMMARY | 2024-05-25 14:52 | XMS_ITS | Encounter Summary ---
Author Organization [facility] [place] [address] Care Team Providers Care Motor And Generator Brush Maker Name Role Phone Nabil Troncoso MD Primary Care Provider [phone] Encounter Details Date Type Department Care Team (Late st Contact Info) Description 12/29/2014 Telephone [place] [phone] Josh Presley MD [address] [place] [address], Level [address] [place] [address] Social History Tobacco Use Types Packs/Day Years [...] encounter Miscellaneous Notes * Telephone Encounter - Kaleigh Elizondo E - 12/29/2014 1:42 PM EDT Sent by email: Tiffanie, I hope this finds you well. I received and reviewed medical records as required by the Bariatric Surgery Program and [facility]. ??? [facility] requires an H Pylori lab test. ??? Did Ailyn Serrano receive the yellow letter provided in your packet before your Psychological Evaluation? Her report does not follow the guidelines outline in that letter and I would be happy toprovide her with the letter should she need it. ??? I have the notes on your follow-up visit to discuss the PSG results for the Sleep Study; however, I do not have the original report, which can be faxed to me at [phone]. Once that information is received I can forward your chart to our Dietitian and Nurse Practitioner!Thank you. Kaleigh Eliznodo Bariatric Floor Layer [email or web address] documented in this encounter Plan of Treatment Upcoming Encounters Date Type Department Care Team (Late st Contact Info) Description 06/02/2024 8:00 AM EDT Office Visit [place] [phone] Julienne Lacey APRN [facility] [place] [address] 07/24/2024 1:30 PM EST Office Visit Weight [place] [phone] Jenni Brennan MD [facility] DR [facility] [address] documented as of this encounter Visit Diagnoses Not on filedocumented in this encounter Care Teams Motor And Generator Brush Maker Relationship Specialty Start Date End Date Nabil Troncoso MD [address] [place] [address] PCP - General 10/29/11 12/23/16 documented as of this encounter
--- OUTSIDE RECORDS SUMMARY | 2024-05-25 14:52 | XMS_ITS | Encounter Summary ---
Author Organization [facility] Address [facility] [place] [address] Care Team Providers Care Occupational Health Physiotherapist Name Role Phone Kezia Aguirre MD Primary Care Provider [phone] Reason for Visit * Consultation (Routine) - Specialty Diagnoses / Procedures Referred By Contesdras antoine Referred To Contact Sleep Center Diagnoses Neck 16 Procedures Sleep Consultation prior to bariatric surgery Jerica Dubose MD [facility] [place] [address] [facility] Sleep Medicine [address] [place] [address] Referral ID Status Reason Start Date Expiration Date V isits Requested Visits Authorized [id number] Consult, Test & Treat 03/06/2018 03/06/2019 1 1 Encounter Details Date Type Department Care Team (Late st Contact Info) Description 04/10/2018 1:00 PM EDT Office Visit Sleep Center at [facility] [address] [place] [phone] Shannan Colvin APRN [facility] [place] [address] Obesity, unspecified classification, unspecified obesity type, unspecified whether serious comorbidity [...] Sign Reading Time Taken Comments Blood Pressure 133/86 04/10/2018 1:03 PM EDT Pulse 91 04/10/2018 1:03 PM EDT Temperature - - Respiratory Rate - - Oxygen Saturation 99% 04/10/2018 1:03 PM EDT Inhaled Oxygen Concentration - - Weight 135.2 kg (298 lb) 04/10/2018 1:03 PM EDT Height 165.1 cm (5' 5) 04/10/2018 1:03 PM EDT Body Mass Index 49.59 04/10/2018 1:03 PM EDT documented in this encounter Progress Notes * Shannan Colvin APRN - 04/10/2018 1:00 PM EDT Sleep Medicine Consultation Note CC:Tiffanie Monreal is a 33 y.o. female seen at the request of Kezia Aguirre MD for advice regarding possible ESTHELA. HPI: Had a PSG in 2014 at the [facility], her AHI was 2.5, min O2 sat was 88% and her wt was 305 lbs. She was diagnosed with sleep disordered breathing and recommended she start CPAP. She didnot start PAP since she didn't feel she had ESTHELA. No major changes to her health since 2014 and her weight is essentially stable. Her sleep has improved as compared to 2015, has a lot less stress now. She is in the bariatric program. Sleep Pattern: Bed/Recliner/Wedge: flat bed with 2 pillows, prefers to sleep on stomach or either side. She doesn't sleep supine. Bedtime: 8-10 pm-her son sets her schedule Lights out: 8-10 pm Latency: none Awakenings: 1 time Duration: quickly falls back to sleep Reason: to urinate Wake time: 5-6 am Rise time: same as wake time Respiratory: Snoring: no Observed Apneas: no Mouth Breathing: no Dry Mouth: no Nocturnal Gasping: no Nasal Obstruction: no Daytime Symptoms: [place]: Patient-reported last 4 scores: [facility] 08/22/2011 04/10/2018 [place] Sleep - 3 Insomnia Severity Index - 1 (No clinically significant insomnia) VR12 - Physical Component Summary 33.85 - VR12 - Mental Component Summary 55.25 - Upon Awakening: Feels refreshed Naps: no Involuntary Dozing: no Driving: no Close calls related to sleepiness no Accidents related to sleepiness no Other Associates Sleep Symptoms: Parasomnias: Sleep Walking: no Dream Enactment: no Motor: RLS: no PLMS: no Narcolepsy: Hallucinations: no Paralysis: no Cataplexy: no Past Medical History: Active Ambulatory Problems Diagnosis Date Noted ??? Breast hypertrophy 10/30/2011 ??? Morbid obesity 07/29/2015 ??? 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 Insomnia 07/29/2015 ??? Major depressive disorder 07/29/2015 ??? Anxiety disorder 07/29/2015 Resolved Ambulatory Problems Diagnosis Date Noted ??? No Resolved Ambulatory Problems No Additional Past Medical History Medications: No current outpatient prescriptions on file. Social History: Living situation: lives with 2 children, ages 14 and 10 Employment: [employer], mostly days, 4:30 am till 6 pm is the time range Alcohol: no Smoking: quit 8 years ago, was 1/2-1 ppd for 6 years Caffeine: less than one soda or energy drink per day Other drugs: no Family History: Family history of sleep disorders: mother has sleep apnea ROS: CON: weight change: has lost a few pounds since her 2014 PSG ENT: nasal obstruction: no PUL: [place]: no CV: chest pain: no Palpitations: no LE edema: no GI: GERD: no : Nocturia: no MSK: Pain:no NEURO: sleep related headaches: no ALL: no ENDO: no thyroid dz or DM PSY: Depression: h/o-currently not an issue, not on meds Anxiety: h/o-currently not an issue, not on meds PE: BP 133/86 (BP Location (NBP): Right arm, Patient Position: Sitting, BP Cuff Sizes: Adult (25-34 cm)) Pulse 91 Ht 165.1 cm (5' 5) Wt 135.2 kg (298 lb) SpO2 99% BMI 49.59 kg/m2 General: NAD Eyes: conjunctiva clear ENT: oropharynx MP: 1/4 Crowded: no Mandibular structure and position: normal NECK: Submental fat present: yes Neck Size: 15.75 inches Supple, no LAD LUNGS: respirations even and unlabored, CTAB CV: RRR, no m/g/r, no c/c/e ABD: soft, NT SKIN: warm and dry NEURO: gait and station normal, no tremor PSYCH: Alert and appropriate: yes Oriented to person, place and time: yes Affect: full range Mood: good Judgement and insight: intact Assessment: Tiffanie Monreal is a 33 y.o. female with a history of sleep disordered breathing presents today to be cleared for bariatric surgery from an ESTHELA standpoint. Her 2015 PSG was not diagnostic for ESTHELA and there have been no changes to her health or weight since the study. Today's history and symptoms arenot suspicious for obstructive sleep apnea. There is no need for a repeat sleep study at this time. The signs and symptoms of obstructive sleep apnea were reviewed in detail with the patient and she will be in touch should she develop them going forward. I reinforced the need to sleep supine. Questions regarding diagnosis and management answered at this time. Recommendations: Try to sleep supine Role of weight loss reviewed Safe driving precautions reviewed with the patient Sleep apnea facts and figures handout provided-she will call for a f/u appt if needed going forward. SHANNAN COLVIN APRN documented in this encounter Plan of Treatment Upcoming Encounters Date Type Department Care Team (Late st Contact Info) Description 06/02/2024 8:00 AM EDT Office [place] [phone] Julienne Lacey APRN [facility] [place] [address] 07/24/2024 1:30 PM EST Office Visit [place] [phone] Jenni Brennan MD [facility] [place] [address] documented as of this encounter Visit Diagnoses Diagnosis Obesity, unspecified classification, unspecified obesity type, unspecified whether serious comorbidity present documented in this encounter Care Teams Occupational Health Physiotherapist Relationship Specialty Start Date End Date Kezia Aguirre MD [address] [place] [address] PCP - General Family Medicine 12/24/16 12/30/22 documented as of this encounter
--- OUTSIDE RECORDS SUMMARY | 2024-05-25 14:52 | XMS_ITS | Encounter Summary ---
Author Organization Formerly [facility] Address [facility] [place] [address] Care Team Providers Care Core Machine Operator Name Role Phone Nabil Troncoso MD Primary Care Provider [phone] Encounter Details Date Type Department Care Team (Late st Contact Info) Description 07/29/2015 Notes [place] [address] Analy Cervantes, PIPE INSPECTOR [facility] [place] [address] Social History Tobacco Use Types Packs/Day Years [...] as of this encounter Progress Notes * Analy Cervantes - 07/29/2015 1:48 PM EST Bariatric Surgery Program Pre-visit Chart Review Chart review was done. __x__ Initial appointments cannot be made at the current time because the following information is needed: Mental health: __x_ evidence of ongoing counseling, further discussion of eating triggers. Concern regarding MDD, multiple episodes of depression and not on medication as of January 2015 due to side effects. Primary care notes on 06/23/14 discuss question of split personality disorder, symptoms since [employer]-feels like she is two different people wrapped in the same body- most of the time. Her therapist Ailyn Serrano [facility] ([phone]) Since she has had a psychiatric admission within the past 2 years, her case will be reviewed at thenext team meeting Primary care information: __x_copy of recent comprehensive history and physical exam by primary care physician within the past year, (last available 2013) _x__ letter of support for bariatric surgery from primary care tech- needs to include wt history over past 5 years, per [place] Medicaid requirements Sleep Center: _x_ copy of CPAP titration and CPAP compliance data If approved: Lab _x__ non-fasting labwork can be done on day of initial visit documented in this encounter Plan of Treatment Upcoming Encounters Date Type Department Care Team (Late st Contact Info) Description 06/02/2024 8:00 AM EDT Office [place] [address] Julienne Lacey APRN [facility] [place] [address] 07/24/2024 1:30 PM EST Office Visit [place] [address] Jenni Brennan MD [facility] [address] [facility] [address] documented as of this encounter Visit Diagnoses Diagnosis Morbid obesity documented in this encounter Care Teams Core Machine Operator Relationship Specialty Start Date End Date Nabil Troncoso MD [address] [place] [address] PCP - General 10/29/11 12/23/16 documented as of this encounter
--- OUTSIDE RECORDS SUMMARY | 2024-05-25 14:52 | XMS_ITS | Encounter Summary ---
Author Organization [facility] Address [facility] [place] [address] Care Team Providers Care Egg Worker Name Role Phone Kezia Aguirre MD Primary Care Provider [phone] Encounter Details Date Type Department Care Team (Late st Contact Info) Description 08/28/2018 Notes [place] [phone] [facility] [place] [id number] Social History Tobacco Use Types Packs/Day Years [...] Progress Notes * Ginger Mojica RD - 08/28/2018 11:22 AM EST BARIATRIC SURGERY PROGRAM NUTRITION EDUCATION 2nd Pre-Operative Visit Shared Medical Appointment Tiffanie Monreal attended a 2 hour shared medical appointment today for her second pre-operative visit with the Bariatric Surgery Program dietitian and nurse practitioner. Ms. Monreal is a morbidly obese female who has been referred for nutrition evaluation and diet instruction in anticipation of bariatric surgery. Previous conservative attempts at weight loss through dieting have been unsuccessful over the watermelon harvesting supervisor. Advised patient that bariatric surgery is a weight loss tool not a solution; and ultimately weight loss will be achieved through proper eating and exercise habits. She was given suggestions for how to incorporate dietary and lifestyle changes into her daily schedule. Patient was given a copy of theprogram handbook at the initial appointment which includes specific information on all nutritional recommendations and guidelines. Pt instructed on importance of following the Pre-operative Surgical Diet. Failure to do so may result in poor pre-surgical weight loss and may result in surgery not being performed. She was also given contact information for further nutritional questions. Ms. Monreal showed good understanding of the concepts discussed. Nutrition Topics Covered at Today's Appointment: ?? Pre-operative Surgical Diet ?? Purpose of diet ?? Appropriate foods ?? Protein goals ?? Carbohydrate goals ?? Calorie goals ?? Keeping a food log ?? Hydration and Appropriate Beverages ?? Post-Operative Diets (Stages I-IV) ?? Importance of following diet stages ?? Appropriate foods ?? Sample Menus ?? Vitamin/Mineral Supplementation ?? Common Food Intolerances ?? Dumping Syndrome ?? Sugar Alcohols ?? Physical Activity The appointment consisted of 60 minutes of group education and counseling. documented in this encounter Plan of Treatment Upcoming Encounters Date Type Department Care Team (Late st Contact Info) Description 06/02/2024 8:00 AM EDT Office [place] [phone] Julienne Lacey APRN [facility] [place] [address] 07/24/2024 1:30 PM EST Office Visit [place] [address] Jenni Brennan MD [facility] [address] [place] [address] documented as of this encounter Visit Diagnoses Not on filedocumented in this encounter Care Teams Egg Worker Relationship Specialty Start Date End Date Kezia Aguirre MD [address] [place] [address] PCP - General Family Medicine 12/24/16 12/30/22 documented as of this encounter
--- OUTSIDE RECORDS SUMMARY | 2024-05-25 14:52 | XMS_ITS | Encounter Summary ---
Author Organization [facility] [place] [address] Care Team Providers Care Chairman & Co Founder Name Role Phone Kezia Aguirre MD Primary Care Provider [phone] Encounter Details Date Type Department Care Team (Late st Contact Info) Description 04/02/2018 Telephone [place] [phone] Alonso-Florecita Woodward Social History Tobacco Use Types [...] * Telephone Encounter - Florecita Gupta - 04/02/2018 9:39 AM EDT Spoke with tiffanie she doesn't have a start weight prior to her intro as she had not seen a provider in a year. Told her to send in what she has. documented in this encounter Plan of Treatment Upcoming Encounters Date Type Department Care Team (Late st Contact Info) Description 06/02/2024 8:00 AM EDT Office Visit [place] [phone] Julienne Lacey APRN [facility] GASTROENTEROLOGY [place], [place] [id number] 07/24/2024 1:30 PM EST Office Visit Weight [place] [phone] Jenni Brennan MD [facility] DR [address] [facility] [address] documented as of this encounter Visit Diagnoses Not on filedocumented in this encounter Care Teams Chairman & Co Founder Relationship Specialty Start Date End Date Kezia Aguirre MD [address] [place] [id number] PCP - General Family Medicine 12/24/16 12/30/22 documented as of this encounter
--- OUTSIDE RECORDS SUMMARY | 2024-05-25 14:52 | XMS_ITS | Encounter Summary ---
Author Organization [facility]ly [facility] [place] [address] Care Team Providers Care Secondary Social Studies Teacher Name Role Phone Kezia Aguirre MD Primary Care Provider [phone] Encounter Details Date Type Department Care Team (Late st Contact Info) Description 07/25/2018 Telephone [place] [address] Florecita German Social History Tobacco Use Types Packs/Day Years [...] * Telephone Encounter - Florecita Gupta - 07/25/2018 3:17 PM EST Bariatric - left message for patient to call back, she is nearly ready for a new patient appointment upon my review, will pass chart along to TOOL DRESSER to review for NPW. In message let patient know we are still waiting on a letter of support from her PCP and a copy of her most recent pap test. documented in this encounter Plan of Treatment Upcoming Encounters Date Type Department Care Team (Late st Contact Info) Description 06/02/2024 8:00 AM EDT Office [place] [address] Julienne Lacey APRN [facility] [place] [address] 07/24/2024 1:30 PM EST Office Visit [place] [address] Jenni Brennan MD [facility] [address] [place] [address] documented as of this encounter Visit Diagnoses Not on filedocumented in this encounter Care Teams Secondary Social Studies Teacher Relationship Specialty Start Date End Date Kezia Aguirre MD [address] [place] [address] PCP - General Family Medicine 12/24/16 12/30/22 documented as of this encounter
--- OUTSIDE RECORDS SUMMARY | 2024-05-25 14:52 | XMS_ITS | Encounter Summary ---
Author Organization [facility] [place] [address] Care Team Providers Care Field Irrigation Worker Name Role Phone Nabil Troncoso MD Primary Care Provider [phone] Encounter Details Date Type Department Care Team (Late st Contact Info) Description 02/24/2015 Telephone [place] [phone] Kaleigh Elizondo Social History Tobacco Use Types Packs/Day Years [...] Notes * Telephone Encounter - Kaleigh Elizondo - 02/24/2015 11:26 AM EDT Pt returned my call - requested telephone conversations or myd-h in the future. Pt. Has been in program since April 2014. All records have been received and patient had PSG. Patient declares she is a stomach sleeper and didn't feel that the sleep study properly addressed her. The recommendations are as follows: 1. Patient can be started on CPAP therapy..., 2. Alternative treatment options include: positional therapy to avoid suppine sleep, enhance efforts for weight loss, evaluation for ENT surgery or use of oral appliance, 3. Weight loss is advise .... And as such pt. Hoped to postpone use of CPAP until after meeting with our Nurse Practitioner. I did request 5 year weight chart. documented in this encounter Plan of Treatment Upcoming Encounters Date Type Department Care Team (Late st Contact Info) Description 06/02/2024 8:00 AM EDT Office Visit [place] [address] Julienne Lacey APRN [facility] [place] [address] 07/24/2024 1:30 PM EST Office Visit [place] [phone] Jenni Brennan MD [facility] [address] [place] [address] documented as of this encounter Visit Diagnoses Not on filedocumented in this encounter Care Teams Field Irrigation Worker Relationship Specialty Start Date End Date Nabil Troncoso MD [address] [facility] [address] PCP - General 10/29/11 12/23/16 documented as of this encounter
--- OUTSIDE RECORDS SUMMARY | 2024-05-25 14:52 | XMS_ITS | Encounter Summary ---
Author Organization [facility] Address [facility] [place] [address] Care Team Providers Care Tile Mechanic Name Role Phone Kezia Aguirre MD Primary Care Provider [phone] Reason for Visit * Reason Comments Establish Care Encounter Details Date Type Department Care Team (Late st Contact Info) Description 08/25/2018 1:00 PM EST Office Visit [place] [address] Jerica Dubose MD [facility] [place] [address] [facility] [place] [address] Morbid obesity Social History Tobacco Use Types Packs/Day Years [...] Sign Reading Time Taken Comments Blood Pressure 132/91 08/25/2018 12:59 PM EST Pulse 68 08/25/2018 12:59 PM EST Temperature - - Respiratory Rate 18 08/25/2018 12:59 PM EST Oxygen Saturation 99% 08/25/2018 12:59 PM EST Inhaled Oxygen Concentration - - Weight 133.8 kg (295 lb) 08/25/2018 12:59 PM EST Height 165.1 cm (5' 5) 08/25/2018 12:59 PM EST Body Mass Index 49.09 08/25/2018 12:59 PM EST documented in this encounter Patient Instructions * Patient Instructions* Ginger Mojica Stas, RD - 08/25/2018 1:00 PM EST BARIATRIC SURGERY PROGRAM FIRST VISIT Contact information: [facility] database support: Florecita: [phone] and Casandra [phone] Dietitians: [phone] Surgeons/ nurse practitioners: [phone] Nurse line: [phone] Recommendations to do list after today's visit: Copies of your labwork and office visit are sent to your primary care office. Medications: ?? Start the following medications: Evaluations/ testing: ?? The following evaluations/ tests are needed: Pending information: Bariatric Surgery Program educational information: 1. Read the Bariatric Surgery Program Educational Handbook thoroughly, highlight important areas toremember. Write down any questions that you may have to discuss at next visit. 2. Bring the Handbook to ALL pre-operative visits, including the surgeon visit. Keep the handbook in a safe place for easy retrieval. Your next visits: All visits take place in the General Surgery Clinic, Airline Counter Agent Area 4L 3. 2nd visits with dietitian and nurse practitioner (SMA- Shared Medical Appointment). Plan to be at the visit for 3 hours 4. Surgical consultation 5. Pre-op class: to be determined at a later date 6. Bring the questionnaire to your next visit. Complete within 1 day of the visit. Predicted weight loss with surgery is an estimated 30-70% of excess body weight, which would be a goal weight between Nutrition: Your starting weight is: Any weight gained will need to be lost prior to being scheduledfor surgery. 1) Practice post-op GB diet recommendations prior to surgery to support post-op success and long-term weight loss: ??? Eat 3 meals daily, spaced about 4-6 hours apart. ??? Take your time when eating meals, at least 20-30 minutes per meal. ??? Avoid soda and limit caffeine consumption. Stop caffeine 2 weeks prior to surgery. ??? Sip 48-64 oz hydrating fluid daily between meals and avoid drinking with meals. ??? Use smaller plates/bowls/utensils for meals and eat smaller portions. ??? Plan meals 1 wk in advance and shop with a list. 2) Start/continue taking a keep a food journal. (See Education section below for frequently used Smartphone apps.) 3) Exercise with the eventual goal of 30 minutes minimum 5 days per week or exercise as recommendedby . 4) Practice this Meal Format: Protein first at all meals! Only eat until full. Breakfast 1st Protein (15-20 grams) 2nd Fruit (1 piece or ?? cup) 3rd Starch (1 serving) Lunch and Dinner 1st Protein (20 grams) 2nd Non-Starchy Vegetables (no limit, no fat) 3rd Starch (1 serving) 4th Fruit (1 piece or ?? cup) 1 serving of starch = 1 slice toast, ?? Kittitian muffin, ?? cup cooked potato, rice, or pasta, 1 small nahed or wrap Non starchy vegetables include all those except corn, peas, winter squash, beans, and potatoes Snacks: 1-2 per day if physically hungry - choose a protein or a fruit Surgery date: For patients who have insurers who have a long approval process, your surgery date and pre-operative class will be scheduled after you are approved by your insurer. We cannot predict your OR date in advance of approval. Only the OR central scheduler can provide you with a date. Questions for your doctor, specialist or pharmacist: 7. Ask your doctor about medication suggestions if you currently take medications that are largerthan the size of a tylenol. Large pills need to be crushed (if permitted by the drug botanical technical officer) or taken in liquid form for TWO WEEKS after surgery. Diabetic oral medication often does not need callum taken after surgery) ?? If you take antinflammatory medications or steroid medications for arthritis or asthma, please check with your doctor. These medications will likely need to be held 1 week prior to and at least a few weeks after surgery. For women who take control or hormone medications: these medications must be stopped 1 month before and after surgery. Use alternative forms of control. Education: 1. Continue to read information about bariatric surgery- websites listed in your handbook Also check the ASMBS website: http://asmbs.org/patients 2. Nutrition and Activity apps- Baritastic, My Fitness Pal, Lose It 3.[facility] facebook page: [email or web address] documented in this encounter Progress Notes * Jerica Dubose MD - 08/25/2018 1:00 PM EST Reason for consultation: Tiffanie is a 33 y.o. year-old female referred by Kezia Aguirre MD for consultation for consideration of surgical treatment of obesity. Her preferred procedure: gastric bypass sleeve gastrectomy. Tiffanie was advised that weight loss fromboth procedures depends on ability to eat a healthy diet chcf after surgery and was encouragedto review the risks and benefits of both procedures in the BSP handbook, as well as online via the [facility] website. BARIATRIC SURGERY PROGRAM PATHWAY Review of progress with the requirements of the Bariatric Surgery Program: 1. Education: She has attended a Introduction to the [facility] Bariatric Surgery Program seminar, a comprehensive two hour meeting that provides a program overview, education on bariatric surgeries offered at [facility], risks and benefits, as well as patient expectations and follow up [facility] Bariatric Surgery Program Educational seminars viewed 2. [...] needed to be determined at today's visit. History of present illness: Tiffanie reports a history of obesity since her late teens. Factors that she identifies as contributing to her obesity include: genetics, overconsumption and inactivity. She denies binge eating, night eating disorder, self-induced vomiting, laxative or diuretic use or excessive exercise to lose weight. 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 Refer to nutrition note by [facility] dietitian for weight and dieting history, 24 hour dietary intake and recent dietary changes. Motivating factors for seeking surgery for bariatric surgery: see RD note Patient research in addition to attendance at [facility] Bariatric Surgery Informational meeting and online Educational seminars: see RD note Her goals of surgery: get healthier, avoid early heart problems Her perceived readiness for surgery: very good Functional status: Exercise: As per RD note Is ambulation limited most or all of the time? no Tolerance: she can walk a mile and climb a flight of stairs Karnofsky performance status scale: 90- able to carry on normal activity, minor signs or symptoms of disease ADLs: able to carry on without difficulty- independent, Use of assistive devices: none Dyspnea with routine activity: denies Patient Active Problem List Diagnosis Code ??? Breast hypertrophy N62 ??? Morbid obesity E66.01 ??? 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 Insomnia G47.00 ??? Major depressive disorder F32.9 ??? Anxiety disorder F41.9 Past Surgical History: Procedure Laterality Date ??? SECTION, LOW TRANSVERSE 2003 ??? SECTION, LOW TRANSVERSE 2007 ??? CHOLECYSTECTOMY, LAPAROSCOPIC ??? HYSTERECTOMY ??? TUBAL LIGATION Bilateral 2007 No current outpatient medications on file prior to visit. No current facility-administered medications on file prior to visit. Allergies Allergen Reactions ??? Cough Syrup [Guaifenesin] Anaphylaxis ??? Spider Venom Other (See Comments) Ask patient. Diagnostic screenin. Lab data, relevant abnormal: A1C is normal 2. Psychological evaluation done by Norris Clark no contraindication to bariatric surgery from a psychological perspective. Excellent family support, sister and friends had bariatric surgery Screening/other: up to date Family History Problem Relation Age of Onset [...] ??? Highest education level: Not on file Social Needs ??? Financial resource strain: Not on file ??? Food insecurity - worry: Not on file ??? Food insecurity - inability: Not on file ??? Transportation needs - medical: Not on file ??? Transportation needs - non-medical: Not on file Occupational History ??? Not on file Tobacco Use ??? Smoking status: Former Smoker Packs/day: 0.50 Years: 2.00 Pack years: 1.00 Types: Cigarettes Last attempt to quit: 03/27/2008 Years since quittin.4 ??? Smokeless tobacco: Never Used Substance and Sexual Activity ??? Alcohol use: Yes Types: 1 Glasses of wine, 1 Cans of beer per week ??? Drug use: No ??? Sexual activity: Not on file Other Topics Concern ??? Exercise: Patient reported Yes ??? Abuse or Threat: Physical, Sexual, Verbal No Social History Narrative ??? Not on file Bariatric Surgery VTE Risk Assessment Score Patients will be considered to be at high risk if they have one or more of the following: Previous VTE or BMI >/= 60 kg/m2 Or two or more of the following: Age > 50 BMI >/= 50 kg/m2 Male sex Recent tobacco use Obstructive sleep apnea Venous insufficiency/ varicose veins OCP or HRT within 30 days of surgery Total: extended VTE prophylaxis is not/ indicated post bariatric surgery discharge Patients are advised to stop HRT and OCP/ DMPA 1 month prior to surgery and hold for 1 month postop, and use control during this time if appropriate Discussion of treatment of obesity and of the [facility] Bariatric Surgery Program: Ms.. Monreal is aware that other treatments for obesity are available, ie, dietary, behavior modification, weight loss medications, exercise as well as surgical weight loss methods. The risks and benefits of bariatric surgery, including gastric bypass and sleeve gastrectomy are discussed at every Int roduction to the [facility] Bariatric Surgery Program meeting and all Educational Seminars, and will be reviewed in detail at the second pre-operative visit. The importance of incorporating lifestyle activity and regular exercise, such as walking, or swimming, after discussion and approval by her primary youth career specialist, prior to surgery, as well as post-operatively, was stressed. She is aware of our program???s mandatory requirements: 1. attendance at a two hour Introduction to the [facility] Bariatric Surgery Program seminar 2. view 3 Bariatric Surgery Educational seminars and complete post testing 3. a no weight gain policy. Ongoing weight loss is encouraged. Insurers may have additional weight loss requirements. 4. a minimum of two pre-operative visits with the dietitian and nurse practitioner 5. Two hour pre-operative class and completion of post-testing 6. any additional requirements mandated by the patient's insurance carrier. Prospective patients are encouraged to thoroughly research bariatric surgery, via the internet, the[facility] website at [email or web address], books, and journals. In addition, information on bariatric surgery is available at the Viewabill at [facility]. Assessment/ Plan: 33 y.o. year old female with morbid obesity: She has had failure to sustain weight loss by medical management and meets the criteria proposed bythe NIH Consensus Guidelines for surgical treatment of severe obesity and the AACE, TOS, ASMBS Clinical Practice Guidelines for the Perioperative Nutritional, Metabolic and Non-surgical Support of the Bariatric Surgery Patient 2013 Update. She is aware that there are non-surgical methods to achieveweight loss. She has had an opportunity to have all her questions answered and is in agreement with the plan of care. She was encouraged to call with any questions or concerns. Information provided to patient: 1. [facility] Bariatric Surgery Education Handbook, a 102 page document (revision May 2013) which contains extensive information regarding pre and post- operative care including: a copy of the Patient Agreement, illustrations of GI anatomy and gastric bypass, gastric banding and sleeve gastrectomy surgeries, [facility] Rehab Medicine recommendations and exercises prior to surgery, gastric bypass, gastric banding and sleeve gastrectomy risks and benefits, dietary information including the pre-operative and post-operative diets, DVT prevention guidelines,information on medications that can increase the risk of bleeding, pre-op preparation information, post-operative instructions and contact numbers. Studies and consults suggested to primary youth career specialist: Kezia Aguirre MD none Pending: - - CBC and CMP within 3 months of surgery, per MBSAQIP accredited bariatric center guidelines - Ongoing weight loss encouraged Questions regarding [facility] Bariatric Surgery Program patients: [phone] ,Total visit duration was 30 minutes with over 20 minutes spent in face to face discussion with thepatient. documented in this encounter Plan of Treatment Upcoming Encounters Date Type Department Care Team (Late st Contact Info) Description 06/02/2024 8:00 AM EDT Office Visit [place] [address] Julienne Lacey APRN [facility] [address] 07/24/2024 1:30 PM EST Office Visit Weight [place] [address] Jenni Brennan MD [facility] [address] [facility] [place] [address] documented as of this encounter Visit Diagnoses Diagnosis Morbid obesity documented in this encounter Care Teams Tile Mechanic Relationship Specialty Start Date End Date Kezia Aguirre MD [address] [place] [address] PCP - General Family Medicine 12/24/16 12/30/22 documented as of this encounter
--- OUTSIDE RECORDS SUMMARY | 2024-05-25 14:52 | XMS_ITS | Encounter Summary ---
Author Organization [facility] Address [facility] [place] [address] Care Team Providers Care Acct Exec Name Role Phone Kezia Aguirre MD Primary Care Provider [phone] Encounter Details Date Type Department Care Team (Late st Contact Info) Description 08/25/2018 Notes [place] [id number] [facility] [place] [place] [address] Social History Tobacco Use Types Packs/Day Years [...] Progress Notes * Ginger Mojica RD - 08/25/2018 1:38 PM EST Initial Bariatric Preoperative Nutrition Note Provider: Ginger Mojica, MS, RD, LD Clinical Dietitian for the [facility] Bariatric Program Encounter Date: 08/25/2018 Reason for consult: Tiffanie Monreal is a 33 y.o. female here for an initial nutrition visit in preparation for bariatric surgery. She is accompanied by her sister Rashida. She is also having an evaluation with Dr Gracy miranda Interview: Tiffanie has been contemplating bariatric surgery for the past 3 years and feels the timingis now right to move forward. She has supported both her sisters through weight loss surgery and has good insight into both the risks and benefits. In preparation for surgery she has cut way back on processed carbs and eliminated snacking after dinner. She has also been attending the [facility] bariatric support group led by Stephanie Huerta RD. History of Weight Gain: Tiffanie has struggled with weight her entire life but reports it became a bigger problem after puberty. In her early 20's she remembers weighing in the lower 200's with slow steady gain over the next 10 years which she attributes to genetics, life stressors and a bout of depression after the of her father. Dieting Attempts: Diet Type Dates Pounds Lost/Regained Comments Omni Diet 2013 for 3 months Lost 30/gained 30 Jairo 2014 for 6 months Lost 15/gained 20 Bad side effects Weight Watchers 2015 for 1 year Lost 10/gained 20 Has done many times Atkins 2013 for 6 months Lost 22/gained 15 Weight loss pills 1095-3153 for 1 year Lost 5-20/gained all Tried several types Nutrition counseling with RD 04/10/18;05/08/18;06/05/18 Lost 10 Pre program required visits with Stephanie Huerta in [facility] Related Medical History: Past Medical History: Diagnosis Date ??? Anxiety ??? Depression ??? Obesity Patient Active Problem List Diagnosis Code ??? Breast hypertrophy N62 ??? Morbid obesity E66.01 ??? 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 Insomnia G47.00 ??? Major depressive disorder F32.9 ??? Anxiety disorder F41.9 History of binging, purging or other disordered eating practices: no Medications/Supplements: daily multivitamin Weight: Date Ht (in) Wt (lbs) BMI Comments 08/25/2018 65 295 49 Max adult weight 311# Food Allergies/Intolerances: Allergies as of 08/25/2018 - Review Complete 04/10/2018 Allergen Reaction Noted ??? Cough syrup [guaifenesin] Anaphylaxis 08/25/2018 ??? 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 The comprehensive Bariatric Booklet was provided with detailed explanations of all dietary guidelines. Pt was instructed to read and review all information in preparation for the next visit which is typically scheduled as a small group education class. ?? Healthy eating and lifestyle habits in preparation for bariatric surgery were reviewed. ?? The importance of exercise and movement was discussed ?? Pt was encouraged to contact the bariatric program with any further questions or concerns. Contact information provided documented in this encounter Plan of Treatment Upcoming Encounters Date Type Department Care Team (Late st Contact Info) Description 06/02/2024 8:00 AM EDT Office [place] [address] Julienne Lacey APRN [facility] [place] [address] 07/24/2024 1:30 PM EST Office Visit [place] [address] Jenni Brennan MD [facility] [address] [facility] [place] [address] documented as of this encounter Visit Diagnoses Not on filedocumented in this encounter Care Teams Acct Exec Relationship Specialty Start Date End Date Kezia Aguirre MD [address] [place] [address] PCP - General Family Medicine 12/24/16 12/30/22 documented as of this encounter
--- OUTSIDE RECORDS SUMMARY | 2024-05-25 14:52 | XMS_ITS ---
Author Organization [facility] [address] [place] [address] Care Team Providers Care Senior Mobile Web Developer Name Role Phone Saumya Felipe APRN Primary Care Provider [phone] Weight and Wellness Status:Enrolled (Active) Start date:01/23/2024 Enrollment date:02/18/2024 Enrollment reason:Enrolled - Currently Fills with Specialty Linked medications:semaglutide (Active) Linked problems:Class 3 severe obesity with body mass index (BMI) of 40.0 to 44.9 in adult (Active) Continued Care and Services Coordination
--- OUTSIDE RECORDS SUMMARY | 2024-05-25 14:52 | XMS_ITS | Encounter Summary ---
[place] [address] Care Team Providers Care Phone Operator Name Role Phone Kezia Aguirre MD Primary Care Provider [phone] Encounter Details Date Type Department Care Team (Late st Contact Info) Description 03/06/2018 Telephone [place] [address] Rebecca Saez Social History Tobacco Use Types Packs/Day Years [...] Miscellaneous Notes * Telephone Encounter - Rebecca Saez - 03/06/2018 3:29 PM EDT Spoke on the phone with this patient and asked her to fax us a start weight from the 6 months priorto her attendance of the 11/15/17 informational meeting. The patient asked for a referral to the sleep center. I encouraged her to call us with any questions or if she doesn't hear from the sleep center in a week. documented in this encounter Plan of Treatment Upcoming Encounters Date Type Department Care Team (Late st Contact Info) Description 06/02/2024 8:00 AM EDT Office [place] [address] Julienne Lacey APRN [facility] [place] [address] 07/24/2024 1:30 PM EST Office Visit Weight and Wellness at [facility] [place] [phone] Jenni Brennan MD [facility] [address] [facility] [address] documented as of this encounter Visit Diagnoses Not on filedocumented in this encounter Care Teams Phone Operator Relationship Specialty Start Date End Date Kezia Aguirre MD [address] [place] [address] PCP - General Family Medicine 12/24/16 12/30/22 documented as of this encounter
--- OUTSIDE RECORDS SUMMARY | 2024-05-25 14:52 | XMS_ITS | Encounter Summary ---
Author Organization [facility] [place] [address] Care Team Providers Care Inspector Outside Production Name Role Phone Saumya Felipe APRN Primary Care Provider [phone] Encounter Details Date Type Department Care Team (Late st Contact Info) Description 12/26/2003 [place] [id number] Maria G Gordon MD OBSTETRICS & GYNECOLOGY Social History Tobacco Use Types Packs/Day Years [...] 8:00 AM EDT Office [place] [address] Julienne Lacey APRN [facility] [place] [address] 07/24/2024 1:30 PM EST Office Visit [place] [address] Jenni Brennan MD [facility] [place] [address] documented as of this encounter Procedures Procedure Name Priority Date/Time Associated Diagnosis Comments SURGICAL PATHOLOGY REPORT Routine 12/29/2003 12:53 PM EDT documented in this encounter Results * Surgical Pathology Report (12/29/2003 12:53 PM EDT) Surgical Pathology Report [id number] ? Location: BP; BP07; A The signing pathologist has (i) examined the relevant preparation(s) for the specimen(s) and (ii) rendered or confirmed the diagnosis(es). . ?Pathology Surgical Pathology Final Report Clinical Information Specimen Submitted: A - Placenta, cord, membrane Clinical History: IUGR Gross Description Labeled/Fixative: ? Labeled with the patient's name, fresh. Qty/Size/Weight: ?One, 15.3 x 14.8 x 5.9 cm, 370 g. Tissue Description: ?? Michael placenta. ?? Membranes: ? Translucent and insert marginally. ??There is a mild ?amount of easily lysed blood clot attached. ?? Cord: ?3.5 x 1.1 cm; three vessels; central insertion. ?? Surface: ? Pale blue and displays prominent vessels without ?thrombi. ??There is a small area of subamniotic ?hemorrhage, 3.5 cm from the umbilical cord. ?? Maternal Surface: ??Focally torn but appears to be complete. ??There is a ?small amount of easily lysed adherent blood clot. ?The cotyledons appear grossly flat. ?? Parenchyma: ?The specimen is serially sectioned at 0.5-cm to 1-cm ?intervals. ??Sections show homogeneous, purple, ?trabecular, meaty parenchyma without evidence of ?infarct. Sections/Processing : ??Sections are submitted as follows: ??(1) cord and ?membranes; (2) surface; (3) maternal surface. ?(R3) ??aje/[facility] Microscopic Description Slides reviewed, microscopic description not recorded. Diagnosis Michael placenta, : Term placenta, negative for chorioamnionitis (see Comment). CR-0 12/30/03 KO 12/30/03 Verified by: ? Vanessa Hall MD ?Pathologist ?(Electronic Signature) The attending pathologist whose signature appears on this report has reviewed all diagnostic slides and has edited the gross and/or microscopic portion of the report in rendering the final pathologic diagnosis. Comment The villi show mildly arrested maturation. CELINA OLEA 12/29/2003 12:5 3 PM EDT Maria G Gordon MD PATHOLOGY/CYTOLOGY O RDERABLES Performing Organization Address City/State/ZIP Co nc Phone Number CELINA OLEA documented in this encounter Visit Diagnoses Not on filedocumented in this encounter Care Teams Inspector Outside Production Relationship Specialty Start Date End Date Saumya Felipe APRN [address] [place] [address] PCP - General Family Medicine 12/31/22 documented as of this encounter
--- OUTSIDE RECORDS SUMMARY | 2024-05-25 14:52 | XMS_ITS | Encounter Summary ---
Author Organization [facility] Address [facility] [place] [place] [address] Care Team Providers Care Blow Moulding Machine Operator Name Role Phone Nabil Troncoso MD Primary Care Provider [phone] Reason for Visit * Reason Comments Advice Only breast reduction con sult Encounter Details Date Type Department Care Team (Late st Contact Info) Description 10/30/2011 3:00 PM EDT Follow-[place] [address] Rebecca Motley MD [facility] [place] [place] [address] Breast hypertrophy (Primary Dx) Discharge Disposition: Home Social History [...] Sign Reading Time Taken Comments Blood Pressure 128/86 10/30/2011 3:02 PM EDT Pulse - - Temperature - - Respiratory Rate - - Oxygen Saturation - - Inhaled Oxygen Concentration - - Weight 137.2 kg (302 lb 6.4 oz) 10/30/2011 3:02 PM EDT Height 168.9 cm (5' 6.5) 10/30/2011 3:02 PM EDT Body Mass Index 48.08 10/30/2011 3:02 PM EDT documented in this encounter Progress Notes * Rebecca Motley MD - 10/30/2011 3:19 PM EDT Tiffanie Monreal returns to my office today for the second time in regards to consultation for symptomatic macromastia. She is still interested in surgical correction for her symptoms. Her current BMI is 47. She has increased her exercise with walking and is watching her diet, she has lost 7 lbs over the last 3 months. I advised that before we can proceed with surgery she would need to get her BMI under 35, we reviewed her goal weight and BMI. I advised she could meet with Dr. Jacobo for consideration of surgery ifshe is not able to get her BMI below 35. BP 128/86 Ht 168.9 cm (5' 6.5) Wt 137.168 kg (302 lb 6.4 oz) BMI 48.08 kg/m2 She will contact our office again when she is closer to reaching her goal weight for further assessment. I, Nimo Louie, am acting as scribe for Dr Motley. All work documented was performed by Dr Motley. documented in this encounter Plan of Treatment Upcoming Encounters Date Type Department Care Team (Late st Contact Info) Description 06/02/2024 8:00 AM EDT Office [place] [address] Julienne Lacey APRN [facility] [place] [address] 07/24/2024 1:30 PM EST Office Visit [place] [address] Jenni Brennan MD [facility] [address] [facility] [place] [address] documented as of this encounter Visit Diagnoses Diagnosis Breast hypertrophy- Primary Hypertrophy of breast documented in this encounter Care Teams Blow Moulding Machine Operator Relationship Specialty Start Date End Date Nabil Troncoso MD [address] [address] PCP - General 10/29/11 12/23/16 documented as of this encounter
--- OUTSIDE RECORDS SUMMARY | 2024-05-25 14:52 | XMS_ITS | Encounter Summary ---
Author Organization Formerly [facility] Address [facility] [place] [address] Care Team Providers Care Yoga Teacher Name Role Phone Kezia Aguirre MD Primary Care Provider [phone] Reason for Visit * Reason Comments Patient Education pre bariatric surger y education Encounter Details Date Type Department Care Team (Late st Contact Info) Description 08/28/2018 8:30 AM EST Office [place] [phone] Flavia Landon APRN [facility] DR [facility] [place] [address] [facility] [place] [address] Encounter for pre-bariatric surgery counseling and education; Pre-bariatric surgery nutrition evaluation Social History Tobacco Use Types Packs/Day Years [...] Sign Reading Time Taken Comments Blood Pressure 130/71 08/28/2018 8:16 AM EST Pulse 69 08/28/2018 8:16 AM EST Temperature 36.9 ??C (98.5 ??F) 08/28/2018 8:16 AM ES T Respiratory Rate 14 08/28/2018 8:16 AM EST Oxygen Saturation 99% 08/28/2018 8:16 AM EST Inhaled Oxygen Concentration - - Weight 133 kg (293 lb 4.8 oz) 08/28/2018 8:16 AM EST Height 165.1 cm (5' 5) 08/28/2018 8:16 AM EST Body Mass Index 48.81 08/28/2018 8:16 AM EST documented in this encounter Patient Instructions * Patient Instructions* Barbi Flavia Elayne, AIRFIELD MANAGER - 08/28/2018 8:30 AM EST BARIATRIC SURGERY PROGRAM SECOND VISIT Contact information: [facility] technical sales support specialist: Florecita [phone] and Casandra [phone] Dietitians: [phone] Surgeons/ nurse practitioners: [phone] or [phone] Nurse line: [phone] Medications recommended based on labwork done previously: I will let you on MyDH if you need to change anything based on your lab results today. 1. Pending information: letter of support from your PCP 2. Ongoing weight loss is encouraged. There is a no weight gain policy between visits. The surgeon may opt to delay your surgery if you gain weight between visits. 3. Bring the Educational Handbook to the surgeon's visit. 4. After your surgical consultation, all pertinent information will be faxed to your insurer for approval, which can take a few weeks. Your surgery date and pre-operative class will be scheduled after your class today. If you need to change your surgery date, please call Maria G or Johanne at to reschedule. Your surgery date may change if insurance is approval is delayed. Prepare for the Pre-op Class by doing the followin. Review the program handbook and come to class with a list of questions. 2. Watch the educational videos including Psychological Implications of bariatric surgery on the [facility] website under Bariatric Surgery ([email or web address]_lectures.[email or web address]) 3. Come prepared to the class to discuss meal planning. 4. Bring your supplements 5. Come with tips and suggestions that my be helpful to others. Questions for your doctor, specialist or pharmacist: 5. Ask your doctor about medication suggestions if you currently take medications that are largerthan the size of a tylenol. Large pills need to be crushed (if permitted by the drug senior staff consultant) or taken in liquid form for TWO WEEKS after surgery. Diabetic oral medication often does not need callum taken after surgery) ?? If you take antinflammatory medications or steroid medicationsfor arthritis or asthma, please check with your doctor. These medications will likely need to be held 1 week prior to and at least a few weeks after surgery. For women who take control or hormone medications and men who take hormone medications: thesemedications must be stopped 1 month before and after surgery. Use alternative forms of control. Nutrition and Activity apps- Baritastic, My Fitness Pal, Lose It [facility] facebook page: [email or web address] documented in this encounter Progress Notes * Flavia Landon APRN - 08/28/2018 8:30 AM EST Reason for visit: Tiffanie is a 33 y.o. year-old female who presents for review of progress since initial visit, discussion of risks and benefits of bariatric surgery and bariatric nutrition education. Ms. Monreal's bariatric procedure of choice: GLEN gastric bypass Dr Dubose. History of present illness: History of present illness: Tiffanie reports a history of obesity since her late teens. Factors that she identifies as contributing to her obesity include: genetics, overconsumption and inactivity. She denies binge eating, night eating disorder, self-induced vomiting, laxative or diuretic use or excessive exercise to lose weight. ?? 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 Refer to nutrition note by BSP dietitian for weight and dieting history, 24 hour dietary intake and recent dietary changes. Motivating factors for seeking surgery for bariatric surgery: see RD note Patient research in addition to attendance at [facility] Bariatric Surgery Informational meeting and online Educational seminars: see RD note ? Her goals of surgery: get healthier, avoid early heart problems ?? Her perceived readiness for surgery: very good Since she was last seen she has been reading the handbook, she has been walking at least 3 times a week. She denies any changes in her health since her last visit She has not had any further testing other than labs done today She does not smoke, no alcohol for 3 months BARIATRIC SURGERY PROGRAM PATHWAY Review of progress with the requirements of the Bariatric Surgery Program: 1. Education: She has attended a Introduction to the [facility] Bariatric Surgery Program seminar 2. Next steps in pathway: ?? Since all BSP requirements and testing have been completed: surgical consultation has been completed with . ?? Following surgical consultation, if approved to proceed to surgery by surgeon and insurer: an operative date and Pre-operative Education Class, a 2 hour class taught by the Bariatric AUTO DESIGN CHECKER and RD will be scheduled ?? During hospitalization for bariatric surgery, a standard bariatric surgery order set is followed. ?? Routine post-operative follow up with labwork is done at months 1,4,12,18 and 24, yearly thereafter, and PRN. High risk patients are followed more frequently. Patient Active Problem List Diagnosis Code ??? Breast hypertrophy N62 ??? Morbid obesity E66.01 ??? 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 Insomnia G47.00 ??? Major depressive disorder F32.9 ??? Anxiety disorder F41.9 Medications 08/28/18 0914 Not on File Allergies Allergen Reactions ??? Cough Syrup [Guaifenesin] Anaphylaxis ??? Spider Venom Other (See Comments) Ask patient. Recent diagnostic screening/ evaluations since initial visit: Labs done today Changes to review of systems/ medications since initial visit: Overall changes to comorbidities arenoted in Updated Problem list. Questions per MSAQIP guidelines: no VTE history. No COPD or prior MD or CV intervention Review of plans for post-operative support after discharge: Mom, sister and boyfriend whom she lives with Discussion of bariatric surgeries performed at [facility], risks and benefits, and the [facility] Bariatric Surgery Program requirements: The risks of immediate and terminal supervisor complications as well as the benefits of gastric bypass and sleeve gastrectomy surgeries, as outlined extensively in the Bariatric Surgery Program Handbook, whichis a >100 page document, were reviewed. She is aware that all bariatric surgeries are elective procedures. The mechanism by which gastric bypass and sleeve gastrectomy surgeries lead to weight loss was reviewed. The concept that bariatric surgery is a tool for weight loss and not a cure for obesity was again emphasized. The need for commitment to snf lifestyle changes, with healthy diet and regular physical activity was stressed to achieve and sustain snf weight loss. Benefits of bariatric surgery discussed: ?? estimated loss of 50% - 70% of excess body weight with gastric bypass and sleeve gastrectomy, generally less weight loss after sleeve gastrectomy. Patients rarely achieve ideal body weight, especially patients with BMIs >50. ?? improvement or resolution of weight related comorbidities such as obesity- related hypertension, sleep apnea, NAFLD/ PRINCE, esophageal reflux, restrictive lung disease and hyperlipidemia when anticipated weight loss is achieved. ?? Type 2 diabetes improvement occurs in the majority of patients shortly after gastric bypass, often prior to discharge from the hospital, prior to any weight loss. Patients with >10 year historyof diagnosis of type 2 diabetes often will need to remain on insulin snf. There is less improvement to type 2 diabetes after sleeve gastrectomy as compared with gastric bypass. ?? patients also generally feel better, with improvement in self-esteem and activity levels. Potential but rare risks of gastric bypass and sleeve gastrectomy discussed: ?? inability to perform the operation ?? <0.01%. ?? bleeding and splenic injury with the need for blood transfusion ?? heart and lung complications, including prolonged mechanical ventilation and possible tracheostomy, very rare ?? wound infection and seroma, rare in laparoscopic patients ?? DVT with fatal pulmonary emboli. Prophylactic measures used including Enoxaparin, sequential compression devices and early ambulation. Some patients are discharged on extended Enoxaparin therapy who meet scoring criteria ?? rhabdomyolysis ?? nutritional deficiencies, including protein-calorie malnutrition, vitamins B12, B1, D, folate, iron deficiency and anemia. ?? gallstones, significantly decreased by prophylactic treatment with Ursodiol for 6 months post-operatively. ?? peripheral neuropathy related to chronic poor nutrition or B vitamin deficiencies ?? transient telogen effluvium ?? patients weighing >350 pounds with increased risks related to radiology equipment weight limits, which may necessitate return to OR for evaluation Risks specific to gastric bypass discussed: ?? anastomotic leakage with the development of peritonitis and abscess, potentially leading to sepsis, renal failure and . ?? anastomotic stricture ?? Lifetime risk of anastomotic ulcer, increased with NSAID use, tobacco and regular alcohol use ?? lifetime risk of small bowel obstruction ?? lifetime risk of internal and trocar site hernias, rare ?? potential risk for renal calculi, increased with chronic poor hydration and prior history of renal calculi Risks specific to laparoscopic sleeve gastrectomy discussed: ?? leak at the staple line with the development of peritonitis and abscess, potentially leading to sepsis, renal failure and . The rate of leak after sleeve at [facility] is 0%. ?? stricture of gastric remnant with need for dilatation ?? prolonged nausea and vomiting early post surgery ?? Worsening or development of GERD ?? Potential revision to gastric bypass due to severe GERD ?? generally less weight loss than gastric bypass Potential secondary effects of bariatric surgeries discussed: ?? weight regain/ poor weight loss influenced by eating behaviors and lack of a regular exercise program. Drinking high calorie liquids, frequent snacking or ingestion of large amounts of soft foods will cause weight gain . ?? dumping syndrome associated with gastric bypass ?? Lactose intolerance associated with gastric bypass ?? sagging skin in any area, such as the face, torso and extremities following weight loss. Body contouring surgery may not be a covered benefit by the individual's insurer, and is associated with scarring, risk of infection etc. Patients are advised that if unable to accept the possibility of skinredundancy following weight loss, then they should not proceed with bariatric surgery. Bariatric surgery is done for health reasons, not to improve physical appearance. ?? transfer of addictions or symptom substitution behavior. When food is no longer available to secure a sense of comfort and/or relieve stress, some may turn to alcohol or illicit substances, while others may turn to excessive shopping, gambling or other indiscretions. ?? Worsening of psychiatric illness Tiffanie was advised that bariatric surgery would likely be ineffective for those who: ?? receive a great deal of satisfaction from eating ?? have active eating disorders including binge eating disorder and bulimia ?? are in the midst of serious personal or unstable psychiatric problems Other information discussed: For females of child-bearing age: avoidance of for at least 12-24 months post-operatively. Use of contraception is recommended. Bariatric Surgery Follow up for LIFE: ?? 3 weeks, 4, 8, 12,18 and 24 months, yearly thereafter. More frequent follow up done as clinically indicated. Labwork: done at all routine visits except 1 month post op Post-operative support group meetings: held on the first Saturday of every month. All patients are encouraged to attend. Vitamin and mineral supplementation for LIFE: ?? B12 500 mcg sublingual daily, calcium citrate 500-600 mg with vitamin D 400- 500 mg BID, multivitamins with minerals and iron twice a day. Iron in the form of ferrous fumarate or carbonyl iron is taken with vitamin C once a day for menstruating females or those with iron deficiency or anemia. She appeared to have a good understanding of the information presented at today's meeting, and seems to have reasonable and realistic expectations of bariatric surgery. She previously signed an agreement stating that She is willing to comply with instructions, lifetime vitamin and mineral supplements and programmatic follow up. Labs today: Recent Results (from the past 72 hour(s)) PTH Result Value Ref Range PTH 43 15 - 65 pg/mL Iron and TIBC Result Value Ref Range Iron 91 30 - 150 mcg/dL TIBC 299 250 - 450 mcg/dL Iron Saturation 30 20 - 50 % Hemoglobin A1c Result Value Ref Range Hemoglobin A1C 5.4 4.3 - 5.6 % Est Avg Gluc 108 mg/dL Lipid Panel Result Value Ref Range Chol, Total 126 mg/dL Triglycerides 69 mg/dL HDL 45 mg/dL LDL Cholesterol 67 mg/dL Chol/HDL Ratio 2.8 ratio Lipid Interpretation See Note Comprehensive metabolic panel (non-fasting) Result Value Ref Range Glucose Lvl 110 65 - 199 mg/dL BUN 9 8 - 18 mg/dL Creatinine 0.61 (L) 0.70 - 1.20 mg/dL Sodium 141 135 - 145 mmol/L Potassium 4.5 3.5 - 5.0 mmol/L Chloride 104 98 - 107 mmol/L CO2 25 22 - 31 mmol/L Anion Gap 12 5 - 15 mmol/L Calcium 9.7 8.5 - 10.5 mg/dL Total Protein 7.8 6.1 - 8.0 gm/dL Albumin 4.0 3.2 - 5.2 gm/dL AST 11 0 - 30 unit/L ALT 17 0 - 30 unit/L Alk Phos 73 40 - 104 unit/L Total Bilirubin 0.4 0.2 - 1.3 mg/dL eGFR 119 >=60 mL/min/1.73 m?? eGFR 138 >=60 mL/min/1.73 m?? Hemogram Result Value Ref Range WBC 9.2 4.0 - 9.5 x10(3)/mcL RBC 5.08 4.00 - 5.21 x10(6)/mcL Hemoglobin 13.6 11.7 - 15.5 gm/dL Hematocrit 42.9 35.7 - 45.8 % MCV 84.4 82.6 - 94.4 fL MCH 26.8 (L) 27.1 - 32.0 pg MCHC 31.7 31.7 - 35.0 gm/dL Platelets 261 145 - 357 x10(3)/mcL RDWSD 42.5 37.0 - 46.0 fL RDWCV 13.6 11.5 - 14.1 % MPV 9.8 7.6 - 12.9 fL nRBC % Auto 0.0 % nRBC Abs Auto 0.000 0.000 - 0.000 x10(3)/mcL TSH Result Value Ref Range TSH 0.87 0.27 - 4.20 mlU/ML labs reviewed, no changes indicated. Other labs pending, will review when back. Assessment/ Plan: 33 y.o. year old female with Class III obesity with obesity-related sublinical risk factors. Currently, bariatric surgery is the best treatment available for morbid obesity, providing the only mechanism for reproducible, effective, and sustained weight loss. Encounter Diagnoses Name ??? Encounter for pre-bariatric surgery counseling and education Pt has a good understanding of bariatric surgery risks and benefits, as well as necessary lifestyle changes to be successful, she has had he questions answered. ??? Pre-bariatric surgery nutrition evaluation Labs today Ms.. Monreal is interested in a laparoscopic approach to bariatric surgery, and meets BSP requirements. She is aware that conversion to an open procedure is possible. ??? An intraoperative liver biopsy may be considered to rule out liver pathology ??? Her Bariatric Surgery VTE Risk Assessment score, as determined at visit #1 is 0 which indicatesthat enoxaparin 40 mg SQ BID is recommended during inpatient stay only. Ms. Monreal has met the requirements of the [facility] Bariatric Surgery Program, and has an appointment for surgical consultation. She was encouraged to call with any questions or concerns. Data reviewed: - Visit #2 questionnaire - SMA quiz Information reviewed with patient: 1. [facility] Bariatric Surgery Program Educational Handbook, bariatric surgery patient agreement and risks and benefits of gastric bypass and sleeve gastrectomy reviewed in detail. Pending/ other: - Labs today, to be reviewed, will make recommendations as indicated - Ongoing weight loss encouraged OR date: pending, to be scheduled today Preop class recommendations: -ursodiol (s/p latasha), + PPI, -VTE (score 0), no c pap, s/p hysterectomy 10 minutes of today's 10 minute visit spent face to face counseling regarding medications, planningfor bariatric surgery, reviewing chart and answering patient individual questions. Group counselin minutes Questions regarding [facility] Bariatric Surgery Program patients: please call us at [phone] documented in this encounter Plan of Treatment Upcoming Encounters Date Type Department Care Team (Late st Contact Info) Description 06/02/2024 8:00 AM EDT Office [place] [address] Julienne Lacey APRN [facility] [place] [place] [address] 07/24/2024 1:30 PM EST Office Visit [place] [phone] Jenni Brennan MD [facility] [address] [place] [address] documented as of this encounter Results * TSH (08/28/2018 8:11 AM EST) Thyroid Stimulating Hormone 0.87 0.27 - 4.20 mlU/ML [facility] Blood specimen (specimen) 08/28/2018 8:11 AM EST 08/28/2018 8:17 AM EST Narrative Resulting Agency Comment Spec In Lab Flavia Landon APRN CHEMISTRY ORDERABLES [facility] [place] [address] * Folate, serum (08/28/2018 8:11 AM EST) Folate 12.2 4.8 - 24.2 ng/mL [facility] Blood specimen (specimen) 08/28/2018 8:11 AM EST 08/28/2018 8:17 AM EST Narrative Resulting Agency Comment Spec In Lab Flavia Mabrykevin LARA CHEMISTRY ORDERABLES Performing Organization Address [facility] Co de Phone Number [facility] [place] [address] * Vitamin B12 (08/28/2018 8:11 AM EST) Vitamin B12 459 232 - 1,245 pg/mL [facility] Blood specimen (specimen) 08/28/2018 8:11 AM EST 08/28/2018 8:17 AM EST Narrative Resulting Agency Comment Spec In Lab Flavia Holly Barbi JANE CHEMISTRY ORDERABLES Performing Organization Address [facility] de Phone Number [facility] [place] [address] * Vitamin B1, whole blood (08/28/2018 8:11 AM EST) Vit B1 Lvl Wb (DECEMBER) 155 70 - 180 nmol/L [facility] Comment: ADDITIONAL INFORMATION This test was developed and its performance characteristics determined by [facility] in a manner consistent with CLIA requirements. This test has not been cleared or approved by the U.S. Food and Drug Administration. Test Performed by: [facility] [address] [place] [address] Blood specimen (specimen) 08/28/2018 8:11 AM EST 08/28/2018 9:20 AM EST Narrative Resulting Agency Comment Spec In Lab Flavia Mabryoie JANE LAB SEND OUT ORDERAB LES Performing Organization Address [facility] Co de Phone Number [facility] [place] [address] * (ABNORMAL) Vitamin D, 25-Hydroxy (08/28/2018 8:11 AM EST) Vitamin D Total 25 OH 11(L) 30 - 100 ng/mL [facility] Comment: Deficient <10 ng/mL Insufficient 10 to 29 ng/mL Sufficient 30 to 100 ng/mL Potential Intoxication >100 ng/mL According to the [place] National Osteoporosis Foundation, Vitamin D concentrations >30 ng/mL are sufficient to protect bone health. ??The National Kidney Foundation has similarly stated that patients with Vitamin D concentrations <30ng/mL should be considered to be insufficient or deficient. http://[employer]/nkf-guidelines http://[employer]/nejm-VitD The [employer] iSYS Vitamin D Immunoassay detects both 25-OH Vitamin D2 and 25-OH Vitamin D3, but only a total Vitamin D concentration is reported. Blood specimen (specimen) 08/28/2018 8:11 AM EST 08/28/2018 12:19 PM EST Narrative Resulting Agency Comment Spec In Lab Flavia Landon AIRFIELD MANAGER CHEMISTRY ORDERABLES Performing Organization Address [facility]/ZIP Co de Phone Number [facility] [place] [address] * PTH (08/28/2018 8:11 AM EST) Parathyroid Hormone 43 15 - 65 pg/mL [facility] Blood specimen (specimen) 08/28/2018 8:11 AM EST 08/28/2018 8:17 AM EST Narrative Resulting Agency Comment Spec In Lab Flavia Landon AIRFIELD MANAGER CHEMISTRY ORDERABLES Performing Organization Address [facility]/ZIP Co de Phone Number [facility] [place] [address] * Iron and TIBC (08/28/2018 8:11 AM EST) Iron 91 30 - 150 mcg/dL [facility] TIBC 299 250 - 450 mcg/dL [facility] Iron Saturation 30 20 - 50 % [facility] Blood specimen (specimen) 08/28/2018 8:11 AM EST 08/28/2018 8:17 AM EST Narrative Resulting Agency Comment Spec In Lab Flavia Landon APRN CHEMISTRY ORDERABLES Performing Organization Address [facility] Co de Phone Number [facility] [place] [address] * Ferritin (08/28/2018 8:11 AM EST) [facility] Ferritin 116 15 - 150 ng/mL [facility] Comment: Pediatric reference ranges not verified at [facility], interpret with caution. Reference ranges for females greater than 50 years of age approach values for men, i.e., 30-400 ng/mL. Blood specimen (specimen) 08/28/2018 8:11 AM EST 08/28/2018 8:17 AM EST Narrative Resulting Agency Comment Spec In Lab Flavia Landon APRN CHEMISTRY ORDERABLES Performing Organization Address [facility] Co de Phone Number [facility] [place] [address] * Hemoglobin A1c (08/28/2018 8:11 AM EST) [facility] Hemoglobin A1c 5.4 4.3 - 5.6 % [facility] Comment: Reference Range: 4.3 - 5.6% 5.7 - 6.4% - Increased Risk of Developing Diabetes Mellitus >=6.5% - Consistent with diagnosis of Diabetes Mellitus In the absence of hyperglycemia (i.e. plasma glucose > 200 mg/dL) or classic symptoms of hyperglycemia a repeat measurement of HbA1c should be performed on a separate sample to confirm the diagnosis. Diagnosis and Classification of Diabetes Mellitus, Diabetes Care 2013; 36: Suppl. 1, S67-74 Estimated Average Glucose 108 mg/dL [facility] Comment: eAG equivalents for [...] into estimated average glucose values. ??Diabetes Care 2008:31(8):1305-8518. Blood specimen (specimen) 08/28/2018 8:11 AM EST 08/28/2018 8:17 AM EST Narrative Resulting Agency Comment Spec In Lab Flavia Landon APRN CHEMISTRY ORDERABLES [facility] [place] [address] * Lipid Panel (08/28/2018 8:11 AM EST) Cholesterol, Total 126 mg/dL [facility] Comment: Lower Risk: <200 mg/dL Average Risk: 200-239 mg/dL Higher Risk: >nl=149 mg/dL Triglyceride 69 mg/dL [facility] Comment: Average Risk/Lower Risk: <150 mg/dL Borderline High Risk: 150-199 mg/dL High Risk: 200-499 mg/dL Very High Risk: >fy=984 mg/dL HDL Cholesterol 45 mg/dL [facility] Comment: Males: ?? Higher Risk: <40 mg/dL Females: ?? HIgher Risk: <50 mg/dL LDL Cholesterol 67 mg/dL [facility] Comment: Lowest Risk: <100 mg/dL Lower Risk: 100-129 mg/dL Borderline High Risk: 130-159 mg/dL High Risk: 160-189 mg/dL Very High Risk: >tl=711 mg/dL Cholesterol/HDL Ratio 2.8 ratio [facility] Lipid Interpretation See Note [facility] Comment: Lipid management should be guided by a patient? s ASCVD risk, goals and preferences. ACC/AHA Guidelines recommend high intensity statin if clinical ASCVD or LDL greater than or equal to 190 mg/dL. http://[employer].com/OPM-VTF-Vefdwamvy Adults aged 40-75 with LDL 70-189 mg/dL should have their 10 year ASCVD risk estimated with the ACC/AHA ASCVD risk head of quality http://tools.acc.org/ZNIUA-Djxa-Rvjnogkzr/ Statin should be discussed if risk greater [...] of ASCVD risk reduction. Blood specimen (specimen) 08/28/2018 8:11 AM EST 08/28/2018 8:17 AM EST Narrative Resulting Agency Comment Spec In Lab Flavia Landon APRN CHEMISTRY ORDERABLES Performing Organization Address City/State/[facility] Co de Phone Number [facility] [place] [address] * Prealbumin (08/28/2018 8:11 AM EST) Prealbumin 22 20 - 40 mg/dL [facility] Comment: Prealbumin levels are generally lower in the pediatric population; adult concentrations are usually attained near puberty. Blood specimen (specimen) 08/28/2018 8:11 AM EST 08/28/2018 8:17 AM EST Narrative Resulting Agency Comment Spec In Lab Flavia L Barbi AIRFIELD MANAGER CHEMISTRY ORDERABLES [facility] [place] [address] * (ABNORMAL) Comprehensive metabolic panel (non-fasting) (08/28/2018 8:11 AM EST) Glucose 110 65 - 199 mg/dL [facility] Comment:Diabetes: >=200 mg/d L plus symptoms Blood Urea Nitrogen 9 8 - 18 mg/dL [facility] Creatinine 0.61(L) 0.70 - 1.20 mg/dL [facility] Sodium 141 135 - 145 mmol/L [facility] Potassium 4.5 3.5 - 5.0 mmol/L [facility] Comment: Please note: ??Patients with WBC >100,000 may have falsely elevated Potassium levels. ??For accurate Potassium quantification in these patients send serum separator tube (gold top) for subsequent determinations. ??Contact the Clinical Chemistry Laboratory if there are any questions. Chloride 104 98 - 107 mmol/L [facility] Carbon Dioxide 25 22 - 31 mmol/L [facility] Anion Gap 12 5 - 15 mmol/L [facility] Calcium 9.7 8.5 - 10.5 mg/dL [facility] Protein, Total 7.8 6.1 - 8.0 gm/dL [facility] Albumin 4.0 3.2 - 5.2 gm/dL [facility] Aspartate Aminotransferase 11 0 - 30 unit/L [facility] Alanine Aminotransferase 17 0 - 30 unit/L [facility] Alkaline Phosphatase 73 40 - 104 unit/L [facility] Bilirubin, Total 0.4 0.2 - 1.3 mg/dL [facility] Est Glomerular Filtration Rate 119 >=60 mL/min/1. 73 m?? [facility] Comment: The eGFR was calculated using the CKD-EPI equation. As with all creatinine based estimates of kidney function, eGFR values calculated with the CKD-EPI equation are not accurate in patients with acute kidney failure, extremes of body mass or the acutely ill. http://[employer]/DHMCnkf eGFR 138 >=60 mL/min/1. 73 m?? [facility] Comment: The eGFR was calculated using the CKD-EPI equation. As with all creatinine based estimates of kidney function, eGFR values calculated with the CKD-EPI equation are not accurate in patients with acute kidney failure, extremes of body mass or the acutely ill. http://[employer]/DHMCnkf Blood specimen (specimen) 08/28/2018 8:11 AM EST 08/28/2018 8:17 AM EST Narrative Resulting Agency Comment Spec In Lab Flavia Landon APRN CHEMISTRY ORDERABLES Performing Organization Address City/State/[facility] Co de Phone Number [facility] [place] [address] * (ABNORMAL) Hemogram (08/28/2018 8:11 AM EST) White Blood Cell 9.2 4.0 - 9.5 x10(3)/mc L [facility] Red Blood Cell 5.08 4.00 - 5.21 x10(6)/mc L [facility] Hemoglobin 13.6 11.7 - 15.5 gm/dL [facility] Hematocrit 42.9 35.7 - 45.8 % [facility] Mean Cell Volume 84.4 82.6 - 94.4 fL [facility] Mean Cell Hemoglobin 26.8(L) 27.1 - 32.0 pg [facility] Mean Cell Hemoglobin Concentration 31.7 31.7 - 35.0 gm/dL [facility] Platelet 261 145 - 357 x10(3)/mc L [facility] RDW Standard Deviation 42.5 37.0 - 46.0 fL [facility] RDW coefficient of variation 13.6 11.5 - 14.1 % [facility] Mean Platelet Volume 9.8 7.6 - 12.9 fL [facility] NRBC% auto 0.0 % [facility] NRBC Absolute 0.000 0.000 - 0.000 x10(3)/mc L [facility] Blood specimen (specimen) 08/28/2018 8:11 AM EST 08/28/2018 8:17 AM EST Narrative Resulting Agency Comment Spec In Lab Flvaia Landon AIRFIELD MANAGER HEMATOLOGY ORDERABLE S [facility] [place] [address] documented in this encounter Visit Diagnoses Diagnosis Encounter for pre-bariatric surgery counseling and education Pre-bariatric surgery nutrition evaluation Dietary surveillance and counseling documented in this encounter Care Teams Yoga Teacher Relationship Specialty Start Date End Date Kezia Aguirre MD [address] [place] [address] PCP - General Family Medicine 12/24/16 12/30/22 documented as of this encounter
--- OUTSIDE RECORDS SUMMARY | 2024-05-25 14:52 | XMS_ITS | Encounter Summary ---
Author Organization Formerly [facility] [place] [address] Care Team Providers Care Retail Marketing Specialist Name Role Phone Kezia Aguirre MD Primary Care Provider [phone] Encounter Details Date Type Department Care Team (Latest Contact Info) Description 08/28/2018 7:55 AM EST Laboratory Appointment Lab [address] [place] [phone] Pre-bariatric surgery nutrition evaluation Social History Tobacco [...] 8:00 AM EDT Office [place] [phone] Julienne Lacey APRN [facility] [place] [address] 07/24/2024 1:30 PM EST Office Visit [place] [phone] Jenni Brennan MD [facility] [address] [facility] [place], [place] [id number] documented as of this encounter Procedures Procedure Name Priority Date/Time Associated Diagnosis Comments PTH Routine 08/28/2018 8:11 AM EST Pre-bariatric surgery nutrition evaluation HEMOGRAM Routine 08/28/2018 8:11 AM EST Pre-bariatric surgery nutrition evaluation VITAMIN B1, WHOLE BLOOD Routine 08/28/2018 8:11 AM EST Pre-bariatric surgery nutrition evaluation IRON AND TIBC Routine 08/28/2018 8:11 AM EST Pre-bariatric surgery nutrition evaluation VITAMIN D, 25-HYDROXY Routine 08/28/2018 8:11 AM EST Pre-bariatric surgery nutrition evaluation TSH Routine 08/28/2018 8:11 AM EST Pre-bariatric surgery nutrition evaluation PREALBUMIN Routine 08/28/2018 8:11 AM EST Pre-bariatric surgery nutrition evaluation HEMOGLOBIN A1C Routine 08/28/2018 8:11 AM EST Pre-bariatric surgery nutrition evaluation FOLATE, SERUM Routine 08/28/2018 8:11 AM EST Pre-bariatric surgery nutrition evaluation FERRITIN Routine 08/28/2018 8:11 AM EST Pre-bariatric surgery nutrition evaluation VITAMIN B12 Routine 08/28/2018 8:11 AM EST Pre-bariatric surgery nutrition evaluation LIPID PANEL (REFLEX DIRECT LDL) Routine 08/28/2018 8:11 AM EST Pre-bariatric surgery nutrition evaluation COMPREHENSIVE METABOLIC PANEL Routine 08/28/2018 8:11 AM EST Pre-bariatric surgery nutrition evaluation documented in this encounter Results * (ABNORMAL) Vitamin D, 25-Hydroxy (08/28/2018 8:11 AM EST) Pathologist [facility] Vitamin D Total 25 OH 11(L) 30 - 100 ng/mL [facility] Comment: Deficient <10 ng/mL Insufficient 10 to 29 ng/mL Sufficient 30 to 100 ng/mL Potential Intoxication >100 ng/mL According to the [place] National Osteoporosis Foundation, Vitamin D concentrations >30 ng/mL are sufficient to protect bone health. ??The National Kidney Foundation has similarly stated that patients with Vitamin D concentrations <30ng/mL should be considered to be insufficient or deficient. http://[employer].Walk-in Appointment Scheduler/nkf-guidelines http://[employer]/nejm-VitD [employer] Vitamin D Immunoassay detects both 25-OH Vitamin D2 and 25-OH Vitamin D3, but only a total Vitamin D concentration is reported. Blood specimen (specimen) 08/28/2018 8:11 AM EST 08/28/2018 12:19 PM EST Narrative Resulting Agency Comment Spec In Lab Flavia Landon APRN CHEMISTRY ORDERABLES Performing Organization Address [facility] Co de Phone Number [facility] [place] [address] * Vitamin B1, whole blood (08/28/2018 8:11 AM EST) Vit B1 Lvl Wb (DECEMBER) 155 70 - 180 nmol/L [facility] Comment: ADDITIONAL INFORMATION This test was developed and its performance characteristics determined by [facility] in a manner consistent with CLIA requirements. This test has not been cleared or approved by the U.S. Food and Drug Administration. Test Performed by: [facility] [address] [place] [address] Blood specimen (specimen) 08/28/2018 8:11 AM EST 08/28/2018 9:20 AM EST Narrative Resulting Agency Comment Spec In Lab Flavia Landon APRN LAB SEND OUT ORDERAB LES Performing Organization Address [facility] Co de Phone Number [facility] [place] [address] * Vitamin B12 (08/28/2018 8:11 AM EST) Vitamin B12 459 232 - 1,245 pg/mL [facility] Blood specimen (specimen) 08/28/2018 8:11 AM EST 08/28/2018 8:17 AM EST Narrative Resulting Agency Comment Spec In Lab Flavia Landon ENTERPRISE RECORDS ANALYST CHEMISTRY ORDERABLES [facility] [place] [address] * Folate, serum (08/28/2018 8:11 AM EST) Folate 12.2 4.8 - 24.2 ng/mL [facility] Blood specimen (specimen) 08/28/2018 8:11 AM EST 08/28/2018 8:17 AM EST Narrative Resulting Agency Comment Spec In Lab Flavia Landon ENTERPRISE RECORDS ANALYST CHEMISTRY ORDERABLES Performing Organization Address City/[facility] Co de Phone Number [facility] [place] [address] * TSH (08/28/2018 8:11 AM EST) Thyroid Stimulating Hormone 0.87 0.27 - 4.20 mlU/ML [facility] Blood specimen (specimen) 08/28/2018 8:11 AM EST 08/28/2018 8:17 AM EST Narrative Resulting Agency Comment Spec In Lab Flavia Lanodn ENTERPRISE RECORDS ANALYST CHEMISTRY ORDERABLES Performing Organization Address City/[facility]/ZIP Co de Phone Number [facility] [place] [address] * (ABNORMAL) Hemogram (08/28/2018 8:11 AM EST) White Blood Cell 9.2 4.0 - 9.5 x10(3)/mc L [facility] Red Blood Cell 5.08 4.00 - 5.21 x10(6)/mc L [facility] Hemoglobin 13.6 11.7 - 15.5 gm/dL [facility] Hematocrit 42.9 35.7 - 45.8 % [facility] Mean Cell Volume 84.4 82.6 - 94.4 fL [facility] Mean Cell Hemoglobin 26.8(L) 27.1 - 32.0 pg [facility] Mean Cell Hemoglobin Concentration 31.7 31.7 - 35.0 gm/dL [facility] Platelet 261 145 - 357 x10(3)/mc L [facility] RDW Standard Deviation 42.5 37.0 - 46.0 fL [facility] RDW coefficient of variation 13.6 11.5 - 14.1 % [facility] Mean Platelet Volume 9.8 7.6 - 12.9 fL [facility] NRBC% auto 0.0 % [facility] NRBC Absolute 0.000 0.000 - 0.000 x10(3)/mc L [facility] Blood specimen (specimen) 08/28/2018 8:11 AM EST 08/28/2018 8:17 AM EST Narrative Resulting Agency Comment Spec In Lab Flavia Elayne Guzmáne ENTERPRISE RECORDS ANALYST HEMATOLOGY ORDERABLE S [facility] [place] [address] * (ABNORMAL) Comprehensive metabolic panel (non-fasting) (08/28/2018 8:11 AM EST) Glucose 110 65 - 199 mg/dL [facility] Comment:Diabetes: >=200 mg/d L plus symptoms Blood Urea Nitrogen 9 8 - 18 mg/dL [facility] Creatinine 0.61(L) 0.70 - 1.20 mg/dL [facility] Sodium 141 135 - 145 mmol/L [facility] Potassium 4.5 3.5 - 5.0 mmol/L [facility] Comment: Please note: ??Patients with WBC >100,000 may have falsely elevated Potassium levels. ??For accurate Potassium quantification in these patients send serum separator tube (gold top) for subsequent determinations. ??Contact the Clinical Chemistry Laboratory if there are any questions. Chloride 104 98 - 107 mmol/L [facility] Carbon Dioxide 25 22 - 31 mmol/L [facility] Anion Gap 12 5 - 15 mmol/L [facility] Calcium 9.7 8.5 - 10.5 mg/dL [facility] Protein, Total 7.8 6.1 - 8.0 gm/dL [facility] Albumin 4.0 3.2 - 5.2 gm/dL [facility] Aspartate Aminotransferase 11 0 - 30 unit/L [facility] Alanine Aminotransferase 17 0 - 30 unit/L [facility] Alkaline Phosphatase 73 40 - 104 unit/L [facility] Bilirubin, Total 0.4 0.2 - 1.3 mg/dL [facility] Est Glomerular Filtration Rate 119 >=60 mL/min/1. 73 m?? [facility] Comment: The eGFR was calculated using the CKD-EPI equation. As with all creatinine based estimates of kidney function, eGFR values calculated with the CKD-EPI equation are not accurate in patients with acute kidney failure, extremes of body mass or the acutely ill. http://[employer]/[facility]LEnkf eGFR 138 >=60 mL/min/1. 73 m?? [facility] Comment: The eGFR was calculated using the CKD-EPI equation. As with all creatinine based estimates of kidney function, eGFR values calculated with the CKD-EPI equation are not accurate in patients with acute kidney failure, extremes of body mass or the acutely ill. http://[employer]/[facility]LEnkf Blood specimen (specimen) 08/28/2018 8:11 AM EST 08/28/2018 8:17 AM EST Narrative Resulting Agency Comment Spec In Lab Flavia Landon APRN CHEMISTRY ORDERABLES Performing Organization Address City/[facility]/ZIP Co de Phone Number [facility] [place] [address] * Prealbumin (08/28/2018 8:11 AM EST) Prealbumin 22 20 - 40 mg/dL [facility] Comment: Prealbumin levels are generally lower in the pediatric population; adult concentrations are usually attained near puberty. Blood specimen (specimen) 08/28/2018 8:11 AM EST 08/28/2018 8:17 AM EST Narrative Resulting Agency Comment Spec In Lab Flavia Landon ENTERPRISE RECORDS ANALYST CHEMISTRY ORDERABLES Performing Organization Address [facility] Co de Phone Number [facility] [place] [address] * Lipid Panel (08/28/2018 8:11 AM EST) Cholesterol, Total 126 mg/dL [facility] Comment: Lower Risk: <200 mg/dL Average Risk: 200-239 mg/dL Higher Risk: >wc=271 mg/dL Triglyceride 69 mg/dL [facility] Comment: Average Risk/Lower Risk: <150 mg/dL Borderline High Risk: 150-199 mg/dL High Risk: 200-499 mg/dL Very High Risk: >re=243 mg/dL HDL Cholesterol 45 mg/dL [facility] Comment: Males: ?? Higher Risk: <40 mg/dL Females: ?? HIgher Risk: <50 mg/dL LDL Cholesterol 67 mg/dL [facility] Comment: Lowest Risk: <100 mg/dL Lower Risk: 100-129 mg/dL Borderline High Risk: 130-159 mg/dL High Risk: 160-189 mg/dL Very High Risk: >ww=123 mg/dL Cholesterol/HDL Ratio 2.8 ratio [facility] Lipid Interpretation See Note [facility] Comment: Lipid management should be guided by a patient? s ASCVD risk, goals and preferences. ACC/AHA Guidelines recommend high intensity statin if clinical ASCVD or LDL greater than or equal to 190 mg/dL. http://[employer].com/WPY-YEB-Cxvkaxzjc Adults aged 40-75 with LDL 70-189 mg/dL should have their 10 year ASCVD risk estimated with the ACC/AHA ASCVD risk security consultant http://tools.acc.org/DZWHG-Gorc-Famkkwaam/ Statin should be discussed if risk greater [...] Landon APRN CHEMISTRY ORDERABLES Performing Organization Address City/State/[facility] Co de Phone Number [facility] [place] [address] * Hemoglobin A1c (08/28/2018 8:11 AM EST) Hemoglobin A1c 5.4 4.3 - 5.6 % [facility] Comment: Reference Range: 4.3 - [...] 1, S67-74 Estimated Average Glucose 108 mg/dL [facility] Comment: eAG equivalents for HbA1c [...] into estimated average glucose values. ??Diabetes Care 2008:31(8):0419-9269. Blood specimen (specimen) 08/28/2018 8:11 AM EST 08/28/2018 8:17 AM EST Narrative Resulting Agency Comment Spec In Lab Flavia Elayne Landon APRN CHEMISTRY ORDERABLES Performing Organization Address [facility] de Phone Number [facility] [place] [address] * Ferritin (08/28/2018 8:11 AM EST) [facility] Signature Ferritin 116 15 - 150 ng/mL [facility] Comment: Pediatric reference ranges not verified at [facility], interpret with caution. Reference ranges for females greater than 50 years of age approach values for men, i.e., 30-400 ng/mL. Blood specimen (specimen) 08/28/2018 8:11 AM EST 08/28/2018 8:17 AM EST Narrative Resulting Agency Comment Spec In Lab Flavia Elayne Barbi ENTERPRISE RECORDS ANALYST CHEMISTRY ORDERABLES Performing Organization Address [facility] Co de Phone Number [facility] [place] [address] * Iron and TIBC (08/28/2018 8:11 AM EST) Iron 91 30 - 150 mcg/dL [facility] TIBC 299 250 - 450 mcg/dL [facility] Iron Saturation 30 20 - 50 % [facility] Blood specimen (specimen) 08/28/2018 8:11 AM EST 08/28/2018 8:17 AM EST Narrative Resulting Agency Comment Spec In Lab Flavia Landon ENTERPRISE RECORDS ANALYST CHEMISTRY ORDERABLES Performing Organization Address City/[facility]/ZIP Co de Phone Number [facility] [place] [address] * PTH (08/28/2018 8:11 AM EST) Parathyroid Hormone 43 15 - 65 pg/mL [facility] Blood specimen (specimen) 08/28/2018 8:11 AM EST 08/28/2018 8:17 AM EST Narrative Resulting Agency Comment Spec In Lab Flavia Landon ENTERPRISE RECORDS ANALYST CHEMISTRY ORDERABLES Performing Organization Address City/[facility]/ZIP Co de Phone Number [facility] [place] [address] documented in this encounter Visit Diagnoses Diagnosis Pre-bariatric surgery nutrition evaluation Dietary surveillance and counseling documented in this encounter Care Teams Retail Marketing Specialist Relationship Specialty Start Date End Date Kezia Aguirre MD [address] [place] [address] PCP - General Family Medicine 12/24/16 12/30/22 documented as of this encounter
[2024-05-25 17:03] VITALS: BP 122/81; PULSE 78; RESP 16; TEMP 36.4; O2SAT 97
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
== END 2024-05-25 17:07 | disposition home or self-care (01) ==
PROVIDERS: Emergency Provider Physician Assistant; PCP Nurse Practitioner Family
DX: K60.2 Anal fissure, unspecified (principal); Z90.710 Acquired absence of both cervix and uterus; Z87.891 Personal history of nicotine dependence
CPT/HCPCS: 99283

== ENCOUNTER 2024-09-02 00:52 | Outpatient (CLI) | payer MEDICAID, SELFPAY ==
--- NOTE | 2024-09-02 | DI.MAMMO_ITS ---
Exam(s) MAMMO SCREENING EXAM: MAMMO SCREENING CLINICAL HISTORY: Z12.31 Screening. TECHNIQUE: Bilateral full field digital CC and MLO mammographic images were obtained with 3D tomosyn thesis and utilizing computer aided detection (CAD). COMPARISON: None. This is a baseline screening mammogram. FINDINGS: There are no significant radiograph findings in the right breast In the left breast there is a nodular density in the retroareolar region measuring approximately 9 by 8 mm. Spot compression view recommended. There are no malignant-appearing microcalcification groups in this region. A few benign-appearing mi crocalcification groups are noted in the left breast. There is no significant architectural distortion nor skin thickening-retraction. IMPRESSION: 1. No radiographic evidence of malignancy in the right breast. 2. Nodular density in the retroareolar region of the left breast. Spot compression views and ultraso und recommended. BI-RADS Category 0 - Incomplete: Need additional imaging evaluation Breast Density - Category B - Scattered areas of fibroglandular density Breast density Category C or D implies that the patient has dense breast tissue. Dense breast tissue can make it harder to find cancer on a mammogram. Dense breast tissue is also associated with an incr eased risk of breast cancer. This information about the result of the mammogram report was provided to the patient to raise their awareness. Use this report when you speak with the patient about their risks for breast cancer, which includes their family history. At that time, you may recommend additional screening tests (Ultrasoun d or MRI) as these tests may add significant information. A negative radiographic report should not delay biopsy if a dominant or clinically suspicious mass is present. Up to ten percent of cancers are not identified on mammography. A negative report may reinforce clinical impression. Adenosis and dense breasts may obscure an underlying neoplasm. False positive reports average 6 to 10%. Patient will receive a letter notifying them of these results.
== END 2024-09-02 01:12 ==
LOC: DI 00:53
PROVIDERS: PCP Nurse Practitioner Family; Visit Provider Nurse Practitioner Family
DX: Z12.31 Encounter for screening mammogram for malignant neoplasm of breast (principal); D24.2 Benign neoplasm of left breast; R92.323 Mammographic fibroglandular density, bilateral breasts
CPT/HCPCS: 77063; 77067

== ENCOUNTER 2024-09-07 02:04 | Outpatient (CLI) | payer MEDICAID, SELFPAY ==
--- NOTE | 2024-09-07 | DI.US_ITS ---
Exam(s) MG MAMMO SCREEN CALL BACK UNI US BREAST LT LIMITED EXAM: MG MAMMO SCREEN CALL BACK UNI and U/S breast LT limited CLINICAL HISTORY: R92.8 ABN mammo, Nodular density in retroareolar region left breast. TECHNIQUE: Craniocaudal and mediolateral oblique Full Field Digital Mammography views of the left br east with Computer Aided Diagnosis followed by Tomosynthesis and left breast ultrasound. COMPARISON: Comparison is made with baseline mammogram from 09/02/2024. FINDINGS: Mammography/Tomosynthesis: Masses/Architectural Distortion: The well-circumscribed nodule in the retroareolar region of the left breast persists. It is located in the lower inner quadrant of the left breast. Microcalcifictions: No suspicious pleomorphic-type are seen. Skin Thickening/Nipple Retraction: None. Limited left breast US: The retroareolar region was evaluated sonographically. Echotexture: Normal appearance of the glandular tissue. Shadowing: No suspicious foci. Cyst: There are few small simple cysts seen in the left breast. Solid lesions: There is a solid radially oriented isoechoic nodule at the 7 o'clock position of the l eft breast 1 cm from the nipple measuring 0.5 x 0.8 x 1.0 cm. It would appear to correspond to the m ammographic abnormality. It may represent a benign lesion such as a fibroadenoma. Ductal dilation: None. IMPRESSION: 1. No definite evidence for malignancy is seen at this time. 2. A six-month follow-up mammogram and left breast ultrasound are requested for re-evaluation. 3. The findings were discussed with the patient on the date of the examination. BI-RADS Category 3 - 6 month - Probably Benign Finding: Recommend follow-up imaging in 6 months Breast Density - Category B - Scattered areas of fibroglandular density Breast density Category C or D implies that the patient has dense breast tissue. Dense breast tissue can make it harder to find cancer on a mammogram. Dense breast tissue is also associated with an incr eased risk of breast cancer. This information about the result of the mammogram report was provided to the patient to raise their awareness. Use this report when you speak with the patient about their risks for breast cancer, which includes their family history. At that time, you may recommend additional screening tests (Ultrasoun d or MRI) as these tests may add significant information. A negative radiographic report should not delay biopsy if a dominant or clinically suspicious mass is present. Up to ten percent of cancers are not identified on mammography. A negative report may reinforce clinical impression. Adenosis and dense breasts may obscure an underlying neoplasm. False positive reports average 6 to 10%. Patient will receive a letter notifying them of these results.
== END 2024-09-07 02:24 ==
LOC: DI 02:04
PROVIDERS: PCP Nurse Practitioner Family; Visit Provider Nurse Practitioner Family
DX: Z12.31 Encounter for screening mammogram for malignant neoplasm of breast (principal); N63.42 Unspecified lump in left breast, subareolar
CPT/HCPCS: 76642; 77063; 77067

== ENCOUNTER 2024-10-30 22:53 | Outpatient (REF) | payer MEDICAID, SELFPAY | END 2024-10-30 22:54 | disposition home or self-care (01) | LOC: LBN 22:53 | PROVIDERS: PCP Nurse Practitioner Family; Visit Provider Physician Assistant Medical | DX: J02.9 Acute pharyngitis, unspecified (principal) | CPT/HCPCS: 87070 ==

== ENCOUNTER 2025-01-19 15:57 | Outpatient (REF) | payer BC, SELFPAY ==
[2025-01-19 17:18] LABS: TSH (W/Ref FT4) 0.41 uIU/mL (0.36-3.74)
[2025-01-20 13:39] LABS: ANA Interpretation Negative (Negative)
== END 2025-01-19 15:58 | disposition home or self-care (01) ==
LOC: NCHCN 15:57
PROVIDERS: PCP Nurse Practitioner Family; Visit Provider Nurse Practitioner Family
DX: R21 Rash and other nonspecific skin eruption (principal); R53.83 Other fatigue
CPT/HCPCS: 84443; 86038

== ENCOUNTER 2025-03-02 02:10 | Outpatient (CLI) | payer BC, SELFPAY ==
--- NOTE | 2025-03-02 | DI.US_ITS ---
Exam(s) MG MAMMO DIAGNOSTIC UNI US BREAST LT LIMITED EXAM: MG MAMMO DIAGNOSTIC UNI CLINICAL HISTORY: abnl mammo lt R92.8 6m F/U. COMPARISON: MG MG MAMMO SCREENING from 09/02/2024 US US BREAST LT LIMITED from 09/07/2024 MG MG MAMMO SCREEN CALL BACK UNI from 09/07/2024 US US BREAST LT LIMITED from 03/02/2025 TECHNIQUE: Craniocaudal and mediolateral oblique Full Field Digital Mammography views of the left breast with Computer Aided Diagnosis followed by Tomosynthesis and left breast ultrasound. FINDINGS: Mammography/Tomosynthesis: Masses: Stable area of circumscribed nodularity near the areola. Architectural Distortion: None seen. Microcalcifications: No suspicious pleomorphic-type are seen. Skin Thickening/Nipple Retraction: None. Left breast US: Echotexture: Normal appearance of the glandular tissue. Shadowing: No suspicious foci. Cyst: None. Solid lesions: Stable size and appearance ovoid hypoechoic smoothly marginated nodule in the 7 o'clock position, 1 cm from the nipple, measuring 10 by 9 x 5 millimeters. Ductal dilation: None. IMPRESSION: 1. No evidence of malignancy is noted. Stable hypoechoic nodule, consistent with fibroadenoma. 2. Unless there is more urgent need, follow-up screening mammography is recommended in 6 months. BI-RADS Category 3 - Annual - Resume Annual Screening Breast Density - Category B - There are scattered areas of fibroglandular density. Breast density Category C or D implies that the patient has dense breast tissue. Dense breast tissue can make it harder to find cancer on a mammogram. Dense breast tissue is also associated with an increased risk of breast cancer. This information about the result of the mammogram report was provided to the patient to raise their awareness. Use this report when you speak with the patient about their risks for breast cancer, which includes their family history. At that time, you may recommend additional screening tests (Ultrasound or MRI) as these tests may add significant information. A negative radiographic report should not delay biopsy if a dominant or clinically suspicious mass is present. Up to ten percent of cancers are not identified on mammography. A negative report may reinforce clinical impression. Adenosis and dense breasts may obscure an underlying neoplasm. False positive reports average 6 to 10%. Patient will receive a letter notifying them of these results.
== END 2025-03-02 02:30 ==
LOC: DI 02:10
PROVIDERS: PCP Nurse Practitioner Family; Visit Provider Nurse Practitioner Family
DX: Z12.31 Encounter for screening mammogram for malignant neoplasm of breast; D24.2 Benign neoplasm of left breast
CPT/HCPCS: 76642; 77061; 77065; G0279

== ENCOUNTER 2025-04-22 03:16 | Outpatient (CLI) | payer BC, SELFPAY ==
--- NOTE | 2025-04-22 09:04 | DI.RAD_ITS ---
Exam(s) XR WRIST RT COMPLETE EXAM: XR WRIST RT COMPLETE CLINICAL HISTORY: RT WRIST PAIN,M25.531. TECHNIQUE: 2D digital imaging was performed. COMPARISON: CR XR WRIST RT LIMITED from 04/20/2024 FINDINGS: 3 views No evidence of fracture or dislocation nor significant ulnar variance. Bone density normal. No osseous lesions. No erosions. Scaphoid and scapholunate distance are normal. IMPRESSION: No significant osseous findings in the wrist. DATA REPOSITORY: RADIATION DOSE DELIVERED:
== END 2025-04-22 03:36 ==
PROVIDERS: PCP Nurse Practitioner Family; Visit Provider Nurse Practitioner Family
DX: M25.531 Pain in right wrist (principal)
CPT/HCPCS: 73110

== ENCOUNTER → 2025-06-10 03:58 | Outpatient (CLI) | payer BC, SELFPAY ==
--- NOTE | 2025-06-10 07:45 | DI.MRI_ITS ---
Exam(s) MR UPPER JOINT RT WO EXAM: MR UPPER JOINT RT WO CLINICAL HISTORY: PAIN,primary oa,m19.031. TECHNIQUE: Multiplanar multisequence MRI was performed. COMPARISON: None. FINDINGS: BONES: There is no fracture and no evidence of avascular necrosis. There is no significant ulnar variance. There is a nonexpansile small cyst in the trapezoid bone with mild surrounding intraosseous edema. No obvious degenerative changes at this level nor at the adjacent 1st carpometacarpal joint. JOINTS: The radiocarpal joint is unremarkable. The carpal joints are unremarkable. Scapholunate distance is normal.No evidence of para-articular ganglion. TENDONS: Flexors: Unremarkable. No tears nor tenosynovitis. Carpal tunnel:Unremarkable. Tendons and median nerve appear unremarkable Extensor tendons: On the medial aspect of the wrist there is signal abnormality within the extensor carpi ulnaris tendon and significant tenosynovitis of this tendon is noted, most prominent at the level of the ulnar styloid. There is no intraosseous signal abnormality at its attachment site on the base of the 5th metacarpal nor in the adjacent distal ulna. MUSCLES: Unremarkable. No abnormal intramuscular signal. MEDIAN NERVE: Unremarkable on this noncontrast examination. SOFT TISSUES: Unremarkable. LIGAMENTS: Unremarkable. TRIANGULAR FIBROCARTILAGE: Unremarkable. OTHER: IMPRESSION: The main findings here are on the medial aspect of the wrist where there is tendinitis and tenosynovitis of the extensor or carpi ulnaris tendon. No abnormal findings in the carpal tunnel and flexor tendons in this patient who has had prior carpal tunnel surgery DATA REPOSITORY:
== END ==
LOC: DI 03:58
PROVIDERS: PCP Nurse Practitioner Family; Visit Provider Student in an Organized Health Care Education/Training Program
DX: M19.031 Primary osteoarthritis, right wrist (principal); M65.841 Other synovitis and tenosynovitis, right hand
CPT/HCPCS: 73221